=== PATIENT | female | born 1955 | race Caucasian/White ===

== ENCOUNTER → 2016-09-16 | Outpatient (CLI) | payer BC ==
[~2016-09-16] MED LIST: /FELO5TASR PO; /MOXI40TA PO; ACET50TA PO; ALBU17IN INH; ALDACTONE PO; AMIT10TA2 PO; AMIT50TA4 PO; ANAS1TAB PO; ATEN25TA PO; AVAP150T31 PO; AVAP300T PO; AVEL1TAB PO; BYDU1INJ SC; BYST5TAB2 PO; CETI10TA PO; CYCL10TA PO; CYMB1CAP PO; CYMB60CA3 PO; DULO30CA PO; FELO10TA PO; FLEX10TA2 PO; FURO40TA2 PO; GABA-279 PO; GABA100C PO; GLYB5TAB5 PO; HUMULIN R SC; HYDR25TAB PO; INSUH10VL SC; INSUR50VL SC; IRBE300T10 PO; LASI40TA PO; MAGN1CAP PO; METF1000 PO; METO50TA2 PO; MICO2CRE23 VA; MUCI600T34 PO; MULT1TAB8 PO; NEUR300C PO; NEURONTIN PO; NOVOLOG SC; OMEP20CA3 PO; OSEL75CA PO; PRED10PA PO; PRED20TA PO; PRIL20CA PO; PRILOSEC PO; SING10TA32 PO; SPIR50TA2 PO; SYMB16INH INH; TENORMIN PO; ULTR50TA PO; VITA10002 PO; VITA100066 PO; VITA100072 PO; VITAMIN PO; ZYRT10TA2 PO; [UNRECOGNIZED DRUG - OTHER]
[2016-09-16 19:41] LABS: INR 1.05
[2016-09-16 21:06] LABS: ALBUMIN 3.4 GM/DL (3.2-5.2); ALBUMIN/GLOBULIN RATIO 0.72 (1.00-1.93); ALKALINE PHOSPHATASE 140 U/L (45-117); ALT/SGPT 37 U/L (12-78); ANION GAP 9 MEQ/L (8-16); AST/SGOT 34 U/L (15-37); BILIRUBIN,TOTAL 0.4 MG/DL (0.2-1.0); BLOOD UREA NITROGEN 11 MG/DL (7-18); CARBON DIOXIDE LEVEL 25 MEQ/L (21-32); CHLORIDE LEVEL 111 MEQ/L (98-107); CREATININE FOR GFR 0.64 MG/DL (0.55-1.02); GLOMERULAR FILTRATION RATE > 60.0 (>51); GLUCOSE, FASTING 235 MG/DL (70-105); MAGNESIUM LEVEL 1.9 MG/DL (1.8-2.4); POTASSIUM SERUM 4.1 MEQ/L (3.5-5.1); SODIUM LEVEL 145 MEQ/L (136-145); TOTAL PROTEIN 8.1 GM/DL (6.4-8.2)
== END ==
LOC: M WUC 16:20
PROVIDERS: ATTEND Internal Medicine Gastroenterology
DX: K74.60 Unspecified cirrhosis of liver (principal); I85.00 Esophageal varices without bleeding; R12 Heartburn

== ENCOUNTER → 2016-12-24 | Outpatient (CLI) | payer BC ==
--- NOTE | 2016-12-24 16:33 | REPMRS ---
Patient History The patient states she had a clinical breast exam in November 2016. Patient is postmenopausal and has history of cancer in the left breast at age 58. Family history of colorectal cancer in father at age 50 or over. Malignant radio exam breast specimen of the left breast, May 09, 2014. Malignant stereotatic loc for ea lesion of the left breast, May 09, 2014. Digital Mammo Screening Bilat: December 24, 2016 - Exam #: [id number] Bilateral CC and MLO view(s) were taken. Technologist: Jeyson Lisaologist Prior study comparison: December 04, 2015, digital mammo diagnostic bilateral performed at [facility]. March 27, 2015, bilateral digital mammo screening bilat performed at [facility]. FINDINGS: There are scattered fibroglandular densities. There is no evidence of cancer on this mammogram. Large coarse benign appearing calcifications are present. No significant changes when compared with prior studies. ASSESSMENT: BI-RADS/ACR category 2 mammogram. Benign finding(s). Recommendation Routine screening mammogram of both breasts in 1 year (for women over age 40). This mammogram was interpreted with the aid of an FDA-approved computer-aided dectection system. Electronically Signed By: Donnell Leggett MD 12/24/16 [id number]
== END ==
LOC: M RAD 15:11
PROVIDERS: ATTEND Surgery
DX: Z12.31 Encounter for screening mammogram for malignant neoplasm of breast (principal); Z78.0 Asymptomatic menopausal state; Z80.0 Family history of malignant neoplasm of digestive organs; Z85.3 Personal history of malignant neoplasm of breast

== ENCOUNTER → 2017-02-02 | Outpatient (REF) | payer BC ==
[2017-02-02 18:56] LABS: ALBUMIN 3.7 GM/DL (3.2-5.2); ALKALINE PHOSPHATASE 129 U/L (45-117); ANION GAP 9 MEQ/L (8-16); AST/SGOT 37 U/L (15-37); BILIRUBIN,TOTAL 0.6 MG/DL (0.2-1.0); BLOOD UREA NITROGEN 15 MG/DL (7-18); CALCIUM LEVEL 8.6 MG/DL (8.5-10.1); CARBON DIOXIDE LEVEL 25 MEQ/L (21-32); CHLORIDE LEVEL 106 MEQ/L (98-107); CHOLESTEROL LEVEL 189 MG/DL (<200); CREATININE FOR GFR 0.97 MG/DL (0.55-1.02); GLOMERULAR FILTRATION RATE > 60.0 (>51); GLUCOSE, FASTING 143 MG/DL (70-105); POTASSIUM SERUM 3.9 MEQ/L (3.5-5.1); SODIUM LEVEL 140 MEQ/L (136-145); TOTAL PROTEIN 8.3 GM/DL (6.4-8.2); TRIGLYCERIDES LEVEL 676 MG/DL (<150)
[2017-02-02 19:05] LABS: ALT/SGPT 40 U/L (12-78)
== END ==
LOC: M LABDRAW1 16:07
PROVIDERS: ATTEND Internal Medicine Endocrinology, Diabetes & Metabolism
DX: E11.65 Type 2 diabetes mellitus with hyperglycemia (principal)

== ENCOUNTER → 2017-02-04 | Outpatient (REF) | payer BC | LOC: M LAB REF 19:46 | PROVIDERS: ATTEND Internal Medicine Endocrinology, Diabetes & Metabolism | DX: E11.65 Type 2 diabetes mellitus with hyperglycemia (principal) ==

== ENCOUNTER → 2017-03-04 | Outpatient (REF) | payer BC ==
[~2017-03-04] MED LIST changes: -AVEL1TAB PO; +AVEL1TAB3 PO; +METF10004 PO; -METO50TA2 PO; +METO50TA7 PO
[2017-03-04 11:52] LABS: INR 1.07
[2017-03-04 12:07] LABS: ALBUMIN 3.7 GM/DL (3.2-5.2); ALBUMIN/GLOBULIN RATIO 0.86 (1.00-1.93); BILIRUBIN,DIRECT 0.2 MG/DL (0.0-0.2); BILIRUBIN,TOTAL 0.7 MG/DL (0.2-1.0)
== END ==
LOC: M LABDRAW1 11:29
PROVIDERS: ATTEND Internal Medicine Gastroenterology
DX: K74.60 Unspecified cirrhosis of liver (principal)

== ENCOUNTER → 2017-03-28 | Outpatient (REF) | payer BC | LOC: M LAB REF 15:00 | PROVIDERS: ATTEND Physician Assistant Medical | DX: R31.9 Hematuria, unspecified (principal) ==

== ENCOUNTER → 2017-04-28 | Outpatient (CLI) | payer BC ==
--- NOTE | 2017-04-29 09:01 | DEXA ---
AP SPINE L1 - L4 1.693 4.0 5.2 LT FEMUR TOTAL 1.267 2.1 3.0 RT FEMUR TOTAL 1.130 1.0 1.9 TOTAL BODY TOTAL OTHER DUAL FEMUR FRAX* ASSESSMENT Risk factors: Not performed. 10 year probability of fracture Major osteoporotic fracture % Hip fracture % COMMENTS: Normal bone densitometry of the spine and hips. The density of the spine is increased 7.6% since 05/09/2015. The density of the left hip has decreased 0.2% since 05/09/2015. The density of the right hip has decreased 3.6% since 05/09/2015. FOLLOW-UP: Recommendation for the next bone density exam: 5 years. CHETNA
== END ==
LOC: M WHC 10:28
PROVIDERS: ATTEND Internal Medicine Hematology & Oncology
DX: C50.412 Malignant neoplasm of upper-outer quadrant of left female breast (principal); Z17.0 Estrogen receptor positive status [ER+]

== ENCOUNTER → 2017-05-20 | Outpatient (CLI) | payer BC | LOC: M RAD 12:24 | PROVIDERS: ATTEND Internal Medicine Hematology & Oncology | DX: Z12.31 Encounter for screening mammogram for malignant neoplasm of breast (principal) ==

== ENCOUNTER → 2017-06-06 | Outpatient (CLI) | payer BC ==
[2017-06-06 17:55] LABS: BASO # 0.1 10^3/uL (0.0-0.2); EOS # 0.3 10^3/uL (0.0-0.50); EOS % 5.5 % (0.0-3.0); IMMATURE GRANULOCYTE % 0.2 % (0-0); LYMPH # 1.7 10^3/uL (1.5-4.5); LYMPH % 27.8 % (24.0-44.0); MEAN CORPUSCULAR HEMOGLOBIN 33.3 pg (27.0-33.0); MEAN CORPUSCULAR HGB CONC 34.4 g/dl (32.0-36.5); MEAN CORPUSCULAR VOLUME 96.9 fl (80.0-96.0); MONO # 0.7 10^3/uL (0.0-0.8); MONO % 11.1 % (0.0-5.0); NEUTROPHILS # 3.3 10^3/uL (1.8-7.7); NEUTROPHILS % 54.4 % (36.0-66.0); PLATELET COUNT, AUTOMATED 155 10^3/uL (150-450); RED CELL DISTRIBUTION WIDTH 13.7 % (11.5-14.5); WHITE BLOOD COUNT 6.1 10^3/uL (4.0-10.0)
[2017-06-06 18:21] LABS: ALBUMIN 3.9 GM/DL (3.2-5.2); ALBUMIN/GLOBULIN RATIO 0.89 (1.00-1.93); ALKALINE PHOSPHATASE 108 U/L (45-117); ALT/SGPT 36 U/L (12-78); ANION GAP 10 MEQ/L (8-16); AST/SGOT 34 U/L (15-37); BLOOD UREA NITROGEN 16 MG/DL (7-18); CALCIUM LEVEL 10.4 MG/DL (8.8-10.2); CARBON DIOXIDE LEVEL 26 MEQ/L (21-32); CHLORIDE LEVEL 104 MEQ/L (98-107); CHOLESTEROL LEVEL 145 MG/DL (<200); FREE T4 0.82 NG/DL (0.76-1.46); GLOMERULAR FILTRATION RATE > 60.0 (>45); GLUCOSE, FASTING 119 MG/DL (80-110); MAGNESIUM LEVEL 1.5 MG/DL (1.8-2.4); SODIUM LEVEL 140 MEQ/L (136-145); TOTAL PROTEIN 8.3 GM/DL (6.4-8.2); TRIGLYCERIDES LEVEL 111 MG/DL (<150)
== END ==
LOC: M WUC 10:35
PROVIDERS: ATTEND Family Medicine
DX: K21.9 Gastro-esophageal reflux disease without esophagitis (principal); E66.01 Morbid (severe) obesity due to excess calories; I10 Essential (primary) hypertension

== ENCOUNTER → 2017-10-05 | Outpatient (REF) | payer BC ==
[2017-10-05 16:17] LABS: BASO # 0.1 10^3/uL (0.0-0.2); BASO % 0.8 % (0.0-1.0); EOS # 0.5 10^3/uL (0.0-0.50); EOS % 6.4 % (0.0-3.0); HEMATOCRIT 42.8 % (36.0-47.0); IMMATURE GRANULOCYTE % 0.3 % (0-3.0); LYMPH # 1.7 10^3/uL (1.5-4.5); LYMPH % 23.1 % (24.0-44.0); MEAN CORPUSCULAR HEMOGLOBIN 33.2 pg (27.0-33.0); MEAN CORPUSCULAR VOLUME 94.7 fl (80.0-96.0); MONO # 0.7 10^3/uL (0.0-0.8); MONO % 9.1 % (0.0-5.0); NEUTROPHILS # 4.5 10^3/uL (1.8-7.7); NEUTROPHILS % 60.3 % (36.0-66.0); PLATELET COUNT, AUTOMATED 208 10^3/uL (150-450); RED BLOOD COUNT 4.52 10^6/uL (4.00-5.40); WHITE BLOOD COUNT 7.4 10^3/uL (4.0-10.0)
[2017-10-05 17:05] LABS: ALBUMIN 3.8 GM/DL (3.2-5.2); ALBUMIN/GLOBULIN RATIO 0.83 (1.00-1.93); ALKALINE PHOSPHATASE 101 U/L (45-117); ALT/SGPT 28 U/L (12-78); ANION GAP 10 MEQ/L (8-16); AST/SGOT 36 U/L (7-37); BLOOD UREA NITROGEN 11 MG/DL (7-18); CALCIUM LEVEL 9.3 MG/DL (8.8-10.2); CARBON DIOXIDE LEVEL 29 MEQ/L (21-32); CHLORIDE LEVEL 99 MEQ/L (98-107); CREATININE FOR GFR 0.88 MG/DL (0.55-1.30); FREE T4 0.77 NG/DL (0.76-1.46); GLOMERULAR FILTRATION RATE > 60.0 (>45); GLUCOSE, FASTING 160 MG/DL (70-100); POTASSIUM SERUM 3.9 MEQ/L (3.5-5.1); SODIUM LEVEL 138 MEQ/L (136-145); TOTAL PROTEIN 8.4 GM/DL (6.4-8.2)
== END ==
LOC: M LABDRAW1 15:31
DX: E66.01 Morbid (severe) obesity due to excess calories (principal); I10 Essential (primary) hypertension
CPT/HCPCS: 84443

== ENCOUNTER → 2018-01-26 | Outpatient (REF) | payer BC ==
[2018-01-26 16:30] LABS: BASO # 0.1 10^3/uL (0.0-0.2); BASO % 1.1 % (0.0-1.0); EOS # 0.3 10^3/uL (0.0-0.50); EOS % 5.1 % (0.0-3.0); HEMOGLOBIN 14.5 g/dl (12.0-15.5); IMMATURE GRANULOCYTE % 0.3 % (0-3.0); LYMPH # 1.6 10^3/uL (1.5-4.5); LYMPH % 24.5 % (24.0-44.0); MEAN CORPUSCULAR HEMOGLOBIN 33.8 pg (27.0-33.0); MEAN CORPUSCULAR HGB CONC 35.4 g/dl (32.0-36.5); MEAN CORPUSCULAR VOLUME 95.6 fl (80.0-96.0); MONO # 0.6 10^3/uL (0.0-0.8); MONO % 8.6 % (0.0-5.0); NEUTROPHILS # 3.9 10^3/uL (1.8-7.7); NEUTROPHILS % 60.4 % (36.0-66.0); PLATELET COUNT, AUTOMATED 175 10^3/uL (150-450); RED BLOOD COUNT 4.29 10^6/uL (4.00-5.40); RED CELL DISTRIBUTION WIDTH 13.9 % (11.5-14.5); WHITE BLOOD COUNT 6.5 10^3/uL (4.0-10.0)
[2018-01-26 16:34] LABS: CHOLESTEROL LEVEL 141 MG/DL (<200); CHOLESTEROL RISK RATIO 2.711 (<5); FREE T4 0.76 NG/DL (0.76-1.46); HDL CHOLESTEROL 52 MG/DL (>40); LDL CHOLESTEROL 74.6 MG/DL (<100); NON-HDL-C 89 MG/DL; TRIGLYCERIDES LEVEL 72 MG/DL (<150)
[2018-01-26 16:47] LABS: MALB URINE SIEMENS 35.6 MG/L
== END ==
LOC: M LABDRAW1 15:51
DX: E11.65 Type 2 diabetes mellitus with hyperglycemia (principal); Z13.220 Encounter for screening for lipoid disorders; Z13.29 Encounter for screening for other suspected endocrine disorder; Z13.0 Encounter for screening for diseases of the blood and blood-forming organs and certain disorders involving the immune mechanism
CPT/HCPCS: 84443

== ENCOUNTER → 2018-01-26 | Outpatient (REF) | payer BC ==
[2018-01-26 16:36] LABS: CREATININE FOR GFR 1.02 MG/DL (0.55-1.30); GLOMERULAR FILTRATION RATE 58.8 (>45)
[2018-01-26 16:36] LABS: BLOOD UREA NITROGEN 15 MG/DL (7-18)
== END ==
LOC: M LAB REF 16:08
DX: Z01.812 Encounter for preprocedural laboratory examination (principal); I10 Essential (primary) hypertension; E11.9 Type 2 diabetes mellitus without complications
CPT/HCPCS: 82565

== ENCOUNTER → 2018-02-03 | Outpatient (CLI) | payer BC | LOC: M RAD 12:22 | DX: Z12.31 Encounter for screening mammogram for malignant neoplasm of breast (principal) ==

== ENCOUNTER → 2018-02-09 | Outpatient (CLI) | payer BC ==
[2018-02-09 20:31] LABS: ANION GAP 11 MEQ/L (8-16); BLOOD UREA NITROGEN 17 MG/DL (7-18); CALCIUM LEVEL 9.7 MG/DL (8.8-10.2); CARBON DIOXIDE LEVEL 28 MEQ/L (21-32); CHLORIDE LEVEL 103 MEQ/L (98-107); CREATININE FOR GFR 0.77 MG/DL (0.55-1.30); GLOMERULAR FILTRATION RATE > 60.0 (>45); GLUCOSE, FASTING 78 MG/DL (70-100); NT-PRO BNP 15 PG/ML (<125); POTASSIUM SERUM 4.1 MEQ/L (3.5-5.1); SODIUM LEVEL 142 MEQ/L (136-145)
== END ==
LOC: M WUC 16:49
DX: R60.0 Localized edema (principal)
CPT/HCPCS: 80048

== ENCOUNTER → 2018-03-26 | Outpatient (CLI) | payer BC | LOC: M PLARAD 09:48 | DX: M25.511 Pain in right shoulder (principal) | CPT/HCPCS: 73221 ==

== ENCOUNTER → 2018-06-12 | Outpatient (CLI) | payer BC ==
[2018-06-12 13:23] LABS: BASO # 0.1 10^3/uL (0.0-0.2); BASO % 0.8 % (0.0-1.0); EOS # 0.5 10^3/uL (0.0-0.50); EOS % 8.2 % (0.0-3.0); HEMATOCRIT 37.9 % (36.0-47.0); HEMOGLOBIN 12.9 g/dl (12.0-15.5); IMMATURE GRANULOCYTE % 0.3 % (0-3.0); LYMPH # 1.5 10^3/uL (1.5-4.5); LYMPH % 22.8 % (24.0-44.0); MEAN CORPUSCULAR HEMOGLOBIN 34.1 pg (27.0-33.0); MEAN CORPUSCULAR VOLUME 100.3 fl (80.0-96.0); MONO # 0.6 10^3/uL (0.0-0.8); MONO % 9.8 % (0.0-5.0); NEUTROPHILS # 3.8 10^3/uL (1.8-7.7); NEUTROPHILS % 58.1 % (36.0-66.0); PLATELET COUNT, AUTOMATED 213 10^3/uL (150-450); RED BLOOD COUNT 3.78 10^6/uL (4.00-5.40); RED CELL DISTRIBUTION WIDTH 14.1 % (11.5-14.5); WHITE BLOOD COUNT 6.5 10^3/uL (4.0-10.0)
[2018-06-12 13:31] LABS: HEMATOCRIT 37.9 % (36.0-47.0)
[2018-06-12 13:38] LABS: ESTIMATED AVERAGE GLUCOSE 151 MG/DL (60-110); HEMOGLOBIN A1c 6.9 %
[2018-06-12 13:49] LABS: ALBUMIN 3.9 GM/DL (3.2-5.2); ALBUMIN/GLOBULIN RATIO 0.91 (1.00-1.93); ALKALINE PHOSPHATASE 116 U/L (45-117); ALT/SGPT 37 U/L (12-78); ANION GAP 8 MEQ/L (8-16); AST/SGOT 43 U/L (7-37); BILIRUBIN,TOTAL 0.9 MG/DL (0.2-1.0); BLOOD UREA NITROGEN 11 MG/DL (7-18); CALCIUM LEVEL 9.1 MG/DL (8.8-10.2); CARBON DIOXIDE LEVEL 26 MEQ/L (21-32); CHLORIDE LEVEL 102 MEQ/L (98-107); CREATININE FOR GFR 0.76 MG/DL (0.55-1.30); FERRITIN 180 NG/ML (8-252); GLOMERULAR FILTRATION RATE > 60.0 (>45); GLUCOSE, FASTING 183 MG/DL (70-100); IRON (FE) 108 UG/DL (50-170); MAGNESIUM LEVEL 1.8 MG/DL (1.8-2.4); PERCENT SATURATION 38.8 % (13.2-45.0); PHOSPHORUS LEVEL 2.9 MG/DL (2.5-4.9); POTASSIUM SERUM 4.8 MEQ/L (3.5-5.1); SODIUM LEVEL 136 MEQ/L (136-145); TOTAL IRON BINDING CAPACITY 278 UG/DL (250-450); TOTAL PROTEIN 8.2 GM/DL (6.4-8.2)
[2018-06-14 11:01] LABS: TOTAL 25(OH) VITAMIN D 48.4 NG/ML (30.0-100.0)
[2018-06-15 11:38] LABS: PRETREATED FOLATE FOR RBCFOL 13.4 NG/ML; RBC FOLATE 742.5 NG/ML (280-791)
[2018-06-17 17:43] LABS: VITAMIN B1 LEVEL WHOLE BLOOD 97.7 nmol/L (66.5-200.0)
== END ==
LOC: M WUC 10:42
DX: K91.2 Postsurgical malabsorption, not elsewhere classified (principal); E55.9 Vitamin D deficiency, unspecified; Z98.84 Bariatric surgery status
CPT/HCPCS: 83550

== ENCOUNTER 2018-07-18 08:16 | Inpatient (IN) | payer BC ==
[2018-07-18 08:51] LABS: BEDSIDE GLUCOSE 268 MG/DL (80-115)
[2018-07-18 09:39] LABS: BEDSIDE GLUCOSE 228 MG/DL (80-115)
[2018-07-18] MEDS: NS 1,000 ML IV (09:40)
[2018-07-18 09:48] LABS: BASO % 0.4 % (0.0-1.0); HEMATOCRIT 29.8 % (36.0-47.0); HEMOGLOBIN 10.3 g/dl (12.0-15.5); IMMATURE GRANULOCYTE % 0.5 % (0-3.0); LYMPH % 12.4 % (24.0-44.0); MEAN CORPUSCULAR HEMOGLOBIN 33.4 pg (27.0-33.0); MEAN CORPUSCULAR HGB CONC 34.6 g/dl (32.0-36.5); MEAN CORPUSCULAR VOLUME 96.8 fl (80.0-96.0); MONO # 0.5 10^3/uL (0.0-0.8); MONO % 6.8 % (0.0-5.0); NEUTROPHILS # 6.3 10^3/uL (1.8-7.7); NEUTROPHILS % 79.9 % (36.0-66.0); PLATELET COUNT, AUTOMATED 150 10^3/uL (150-450); RED BLOOD COUNT 3.08 10^6/uL (4.00-5.40); RED CELL DISTRIBUTION WIDTH 13.4 % (11.5-14.5); WHITE BLOOD COUNT 7.9 10^3/uL (4.0-10.0)
[2018-07-18 09:50] LABS: ABG BASE EXCESS -0.8 (-2.0-2.0); ABG HCO3 23.1 MEQ/L (22.0-26.0); ABG O2 SATURATION 94.7 % (95.0-99.0); ABG PARTIAL PRESSURE CO2 35.3 mmHg (35.0-45.0); ABG PARTIAL PRESSURE O2 80.1 mmHg (75.0-100.0); ABG STANDARD HCO3 23.8 MEQ/L (22.0-26.0); ABG TOTAL CO2 24.2 MEQ/L (23.0-31.0); ABG pH (ARTERIAL) 7.434 UNITS (7.350-7.450)
[2018-07-18 09:59] LABS: AMMONIA 86 uMOL/L (<32)
[2018-07-18 10:12] LABS: KETONE, URINE AUTO RFX 1+ mg/dL (NEGATIVE); LEUKOCYTE ESTERASE UR AUTO RFX NEGATIVE (NEGATIVE); NITRITE, URINE AUTO RFX NEGATIVE (NEGATIVE); RBC, URINE AUTO RFX 2 /HPF (0-3); SPECIFIC GRAVITY UR AUTO RFX 1.013 (1.002-1.035); SQUAM EPITHELIAL CELL UR AURFX 0 /HPF (0-6); WBC, URINE AUTO RFX 0 /HPF (0-3)
[2018-07-18 10:16] LABS: LACTIC ACID SEPSIS PROTOCOL 2.2 MMOL/L (0.4-2.0)
[2018-07-18 10:28] LABS: ACETAMINOPHEN LEVEL < 2.0 UG/ML (10.0-30.0); ALBUMIN 3.4 GM/DL (3.2-5.2); ALBUMIN/GLOBULIN RATIO 0.92 (1.00-1.93); ALKALINE PHOSPHATASE 112 U/L (45-117); ALT/SGPT 38 U/L (12-78); ANION GAP 11 MEQ/L (8-16); AST/SGOT 25 U/L (7-37); BILIRUBIN,DIRECT 0.3 MG/DL (0.0-0.2); BILIRUBIN,TOTAL 0.6 MG/DL (0.2-1.0); BLOOD UREA NITROGEN 14 MG/DL (7-18); CALCIUM LEVEL 8.8 MG/DL (8.8-10.2); CARBON DIOXIDE LEVEL 22 MEQ/L (21-32); CHLORIDE LEVEL 110 MEQ/L (98-107); CPK CREATINE PHOSPHOKINASE 89 U/L (26-192); CREATININE FOR GFR 0.61 MG/DL (0.55-1.30); ETHYL ALCOHOL (ETHANOL) < 0.003 % (0.000-0.010); GLOMERULAR FILTRATION RATE > 60.0 (>45); GLUCOSE, FASTING 250 MG/DL (70-100); POTASSIUM SERUM 3.9 MEQ/L (3.5-5.1); SALICYLATE LEVEL < 1.7 MG/DL (5.0-30.0); SODIUM LEVEL 143 MEQ/L (136-145); THYROID STIMULATING HORMONE 0.865 uIU/ML (0.358-3.740); TOTAL PROTEIN 7.1 GM/DL (6.4-8.2); TROPONIN I < 0.02 NG/ML (< 0.10)
[2018-07-18 10:37] LABS: AMPHETAMINES LEVEL URINE NEGATIVE (NEGATIVE); BARBITURATES URINE NEGATIVE (NEGATIVE); BENZODIAZEPINES URINE NEGATIVE (NEGATIVE); CANNABINOIDS URINE NEGATIVE (NEGATIVE); COCAINE METABOLITE URINE NEGATIVE (NEGATIVE); METHADONE URINE NEGATIVE (NEGATIVE); OPIATES URINE NEGATIVE (NEGATIVE); PHENCYCLIDINE URINE NEGATIVE (NEGATIVE)
[2018-07-18 10:48] LABS: ESTIMATED AVERAGE GLUCOSE 160 MG/DL (60-110); HEMOGLOBIN A1c 7.2 %
[2018-07-18] MEDS: LACTULOSE 20 GM/30 ML SYRUP UD PO ×2 (11:21→21:57)
[2018-07-18] MEDS: HumaLOG INSULIN (NovoLOG) PER UNIT SC ×2 (12:00→17:40)
[2018-07-18] MEDS ORDERED: GLUCOSE 4 GM CHEW TABLET PO (12:15)
[2018-07-18] MEDS ORDERED: GLUCAGON FOR INJ 1 MG VIAL (J1610) SC (12:15)
[2018-07-18] MEDS ORDERED: DEXTROSE 50% 50 ML SYRINGE IV (12:15)
[2018-07-18] MEDS: ASPIRIN 81 MG ENTERIC TAB PO (15:20)
[2018-07-18] MEDS: IRBESARTAN 150 MG TAB PO (15:20)
[2018-07-18] MEDS: MONTELUKAST 10 MG TAB PO (15:21)
[2018-07-18] MEDS: ATENOLOL 25 MG TAB PO (15:21)
[2018-07-18] MEDS ORDERED: FUROSEMIDE 100 MG/10 ML VIAL (J1940) IV (17:00)
[2018-07-18 17:47] LABS: BEDSIDE GLUCOSE 179 MG/DL (80-115)
[2018-07-18] MEDS: DULoxetine 30 MG CAP (CYMBALTA) PO (20:38)
[2018-07-18] MEDS: MORPHINE 4 MG/ML 1ML VIAL/SYRINGE (J2270) IV (23:54)
[2018-07-19] MEDS: MORPHINE 4 MG/ML 1ML VIAL/SYRINGE (J2270) IV (03:48)
[2018-07-19 04:32] LABS: BASO % 0.7 % (0.0-1.0); EOS # 0.2 10^3/uL (0.0-0.50); EOS % 3.8 % (0.0-3.0); HEMATOCRIT 28.1 % (36.0-47.0); HEMOGLOBIN 9.6 g/dl (12.0-15.5); IMMATURE GRANULOCYTE % 0.3 % (0-3.0); LYMPH # 1.6 10^3/uL (1.5-4.5); LYMPH % 27.5 % (24.0-44.0); MEAN CORPUSCULAR HEMOGLOBIN 33.2 pg (27.0-33.0); MEAN CORPUSCULAR HGB CONC 34.2 g/dl (32.0-36.5); MEAN CORPUSCULAR VOLUME 97.2 fl (80.0-96.0); MONO # 0.6 10^3/uL (0.0-0.8); MONO % 10.7 % (0.0-5.0); NEUTROPHILS # 3.3 10^3/uL (1.8-7.7); PLATELET COUNT, AUTOMATED 140 10^3/uL (150-450); RED BLOOD COUNT 2.89 10^6/uL (4.00-5.40); RED CELL DISTRIBUTION WIDTH 13.5 % (11.5-14.5); WHITE BLOOD COUNT 5.8 10^3/uL (4.0-10.0)
[2018-07-19 04:57] LABS: ALBUMIN 3.2 GM/DL (3.2-5.2); ALBUMIN/GLOBULIN RATIO 0.86 (1.00-1.93); ALKALINE PHOSPHATASE 104 U/L (45-117); ALT/SGPT 37 U/L (12-78); ANION GAP 6 MEQ/L (8-16); AST/SGOT 41 U/L (7-37); BILIRUBIN,TOTAL 0.6 MG/DL (0.2-1.0); BLOOD UREA NITROGEN 10 MG/DL (7-18); CALCIUM LEVEL 8.2 MG/DL (8.8-10.2); CARBON DIOXIDE LEVEL 26 MEQ/L (21-32); CHLORIDE LEVEL 111 MEQ/L (98-107); CREATININE FOR GFR 0.49 MG/DL (0.55-1.30); GLOMERULAR FILTRATION RATE > 60.0 (>45); GLUCOSE, FASTING 187 MG/DL (70-100); POTASSIUM SERUM 3.4 MEQ/L (3.5-5.1); SODIUM LEVEL 143 MEQ/L (136-145); TOTAL PROTEIN 6.9 GM/DL (6.4-8.2)
[2018-07-19] MEDS: LACTULOSE 20 GM/30 ML SYRUP UD PO ×5 (05:22→23:47)
[2018-07-19] MEDS ORDERED: POTASSIUM CHLORIDE 10 MEQ SR TABLET PO (07:00)
[2018-07-19 07:37] LABS: INR 1.17; PROTHROMBIN TIME 15.1 SECONDS (12.1-14.4)
[2018-07-19 07:50] LABS: AMMONIA 95 uMOL/L (<32)
[2018-07-19 08:27] LABS: BEDSIDE GLUCOSE 253 MG/DL (80-115)
[2018-07-19] MEDS: KCL 10MEQ/100ML SWI (KRUN) 10 MEQ in APPROPRIATE DILUENT 1 EA IV ×2 (08:27→09:30)
[2018-07-19] MEDS: HumaLOG INSULIN (NovoLOG) PER UNIT SC ×3 (09:05→16:58)
[2018-07-19] MEDS: IRBESARTAN 150 MG TAB PO (11:39)
[2018-07-19] MEDS: ATENOLOL 25 MG TAB PO (11:39)
[2018-07-19] MEDS: MONTELUKAST 10 MG TAB PO (11:39)
[2018-07-19] MEDS: ASPIRIN 81 MG ENTERIC TAB PO (11:40)
[2018-07-19 11:54] LABS: BEDSIDE GLUCOSE 170 MG/DL (80-115)
[2018-07-19] MEDS ORDERED: ALBUTEROL SULFATE 2.5 MG/0.5 ML INH NEB SOLN NEB (16:45)
[2018-07-19 16:54] LABS: BEDSIDE GLUCOSE 214 MG/DL (80-115)
[2018-07-19] MEDS: SPIRONOLACTONE 50 MG TAB PO (20:37)
[2018-07-19] MEDS: DULoxetine 30 MG CAP (CYMBALTA) PO (20:39)
[2018-07-19] MEDS: GABAPENTIN 100 MG CAP PO (22:19)
[2018-07-19] MEDS: NYSTATIN 100,000 UNITS/GM TOPICAL PWD 15 GM TOP (23:47)
[2018-07-20] MEDS: LACTULOSE 20 GM/30 ML SYRUP UD PO ×6 (04:57→16:26)
[2018-07-20 05:07] LABS: BASO % 0.6 % (0.0-1.0); EOS # 0.3 10^3/uL (0.0-0.50); EOS % 4.9 % (0.0-3.0); HEMATOCRIT 28.7 % (36.0-47.0); HEMOGLOBIN 9.8 g/dl (12.0-15.5); IMMATURE GRANULOCYTE % 0.3 % (0-3.0); LYMPH # 1.7 10^3/uL (1.5-4.5); LYMPH % 26.1 % (24.0-44.0); MEAN CORPUSCULAR HEMOGLOBIN 33.3 pg (27.0-33.0); MEAN CORPUSCULAR HGB CONC 34.1 g/dl (32.0-36.5); MEAN CORPUSCULAR VOLUME 97.6 fl (80.0-96.0); MONO # 0.7 10^3/uL (0.0-0.8); MONO % 10.4 % (0.0-5.0); NEUTROPHILS # 3.7 10^3/uL (1.8-7.7); NEUTROPHILS % 57.7 % (36.0-66.0); PLATELET COUNT, AUTOMATED 162 10^3/uL (150-450); RED BLOOD COUNT 2.94 10^6/uL (4.00-5.40); RED CELL DISTRIBUTION WIDTH 13.6 % (11.5-14.5); WHITE BLOOD COUNT 6.3 10^3/uL (4.0-10.0)
[2018-07-20 05:22] LABS: AMMONIA 175 uMOL/L (<32)
[2018-07-20 05:26] LABS: ALBUMIN 3.2 GM/DL (3.2-5.2); ALBUMIN/GLOBULIN RATIO 0.89 (1.00-1.93); ALKALINE PHOSPHATASE 114 U/L (45-117); ALT/SGPT 47 U/L (12-78); ANION GAP 8 MEQ/L (8-16); AST/SGOT 48 U/L (7-37); BILIRUBIN,TOTAL 0.6 MG/DL (0.2-1.0); BLOOD UREA NITROGEN 12 MG/DL (7-18); CALCIUM LEVEL 8.7 MG/DL (8.8-10.2); CARBON DIOXIDE LEVEL 25 MEQ/L (21-32); CHLORIDE LEVEL 112 MEQ/L (98-107); CREATININE FOR GFR 0.54 MG/DL (0.55-1.30); GLOMERULAR FILTRATION RATE > 60.0 (>45); GLUCOSE, FASTING 211 MG/DL (70-100); POTASSIUM SERUM 3.7 MEQ/L (3.5-5.1); SODIUM LEVEL 145 MEQ/L (136-145); TOTAL PROTEIN 6.8 GM/DL (6.4-8.2)
[2018-07-20 07:22] LABS: BEDSIDE GLUCOSE 211 MG/DL (80-115)
[2018-07-20] MEDS: HumaLOG INSULIN (NovoLOG) PER UNIT SC ×3 (07:34→16:50)
[2018-07-20] MEDS: amLODIPine 5 MG TAB PO (08:55)
[2018-07-20] MEDS: MONTELUKAST 10 MG TAB PO (08:56)
[2018-07-20] MEDS: ASPIRIN 81 MG ENTERIC TAB PO (08:56)
[2018-07-20] MEDS: IRBESARTAN 150 MG TAB PO (08:56)
[2018-07-20] MEDS: ATENOLOL 25 MG TAB PO (08:56)
[2018-07-20] MEDS: SPIRONOLACTONE 50 MG TAB PO (08:56)
[2018-07-20] MEDS: NYSTATIN 100,000 UNITS/GM TOPICAL PWD 15 GM TOP ×2 (08:57→20:16)
[2018-07-20] MEDS: ENOXAPARIN 40 MG/0.4 ML SYRINGE (J1650) SC (08:57)
[2018-07-20] MEDS: LACTULOSE 20 GM/30 ML SYRUP UD PR (09:08)
[2018-07-20 11:33] LABS: AMMONIA 93 uMOL/L (<32)
[2018-07-20 12:07] LABS: BEDSIDE GLUCOSE 211 MG/DL (80-115)
[2018-07-20 16:33] LABS: AMMONIA 90 uMOL/L (<32)
[2018-07-20 16:48] LABS: BEDSIDE GLUCOSE 193 MG/DL (80-115)
[2018-07-20] MEDS ORDERED: VITAMIN A & D OINTMENT 60 GM TOP (17:00)
[2018-07-20 18:29] LABS: ANION GAP 11 MEQ/L (8-16); BLOOD UREA NITROGEN 12 MG/DL (7-18); CALCIUM LEVEL 9.2 MG/DL (8.8-10.2); CARBON DIOXIDE LEVEL 23 MEQ/L (21-32); CHLORIDE LEVEL 116 MEQ/L (98-107); CREATININE FOR GFR 0.91 MG/DL (0.55-1.30); GLOMERULAR FILTRATION RATE > 60.0 (>45); GLUCOSE, FASTING 264 MG/DL (70-100); POTASSIUM SERUM 3.5 MEQ/L (3.5-5.1); SODIUM LEVEL 150 MEQ/L (136-145)
[2018-07-20 18:30] LABS: AMMONIA 71 uMOL/L (<32)
[2018-07-20] MEDS: SODIUM CHLORIDE 0.45% 1000 ML IV (19:15)
[2018-07-20] MEDS: NS 0.45% 1,000 ML IV (19:15)
[2018-07-20] MEDS: DULoxetine 30 MG CAP (CYMBALTA) PO (20:15)
[2018-07-20] MEDS: GABAPENTIN 100 MG CAP PO (20:15)
[2018-07-20] MEDS ORDERED: GABAPENTIN 100 MG CAP PO (21:00)
[2018-07-20] MEDS: CYCLOBENZAPRINE 10 MG TAB PO (22:53)
[2018-07-21 00:50] LABS: ANION GAP 10 MEQ/L (8-16); BLOOD UREA NITROGEN 12 MG/DL (7-18); CALCIUM LEVEL 8.6 MG/DL (8.8-10.2); CARBON DIOXIDE LEVEL 22 MEQ/L (21-32); CHLORIDE LEVEL 115 MEQ/L (98-107); CREATININE FOR GFR 0.59 MG/DL (0.55-1.30); GLOMERULAR FILTRATION RATE > 60.0 (>45); GLUCOSE, FASTING 188 MG/DL (70-100); POTASSIUM SERUM 3.6 MEQ/L (3.5-5.1); SODIUM LEVEL 147 MEQ/L (136-145)
[2018-07-21 00:50] LABS: AMMONIA 36 uMOL/L (<32)
[2018-07-21] MEDS: LACTULOSE 20 GM/30 ML SYRUP UD PO ×6 (01:49→20:59)
[2018-07-21] MEDS: NS 0.45% 1,000 ML IV ×3 (05:00→20:20)
[2018-07-21] MEDS: CYCLOBENZAPRINE 10 MG TAB PO (06:28)
[2018-07-21 06:32] LABS: BASO # 0.1 10^3/uL (0.0-0.2); BASO % 0.6 % (0.0-1.0); EOS # 0.5 10^3/uL (0.0-0.50); EOS % 6.5 % (0.0-3.0); HEMATOCRIT 28.3 % (36.0-47.0); HEMOGLOBIN 9.6 g/dl (12.0-15.5); IMMATURE GRANULOCYTE % 0.4 % (0-3.0); LYMPH # 1.7 10^3/uL (1.5-4.5); LYMPH % 22.2 % (24.0-44.0); MEAN CORPUSCULAR HEMOGLOBIN 33.6 pg (27.0-33.0); MEAN CORPUSCULAR HGB CONC 33.9 g/dl (32.0-36.5); MONO # 0.6 10^3/uL (0.0-0.8); MONO % 8.2 % (0.0-5.0); NEUTROPHILS # 4.9 10^3/uL (1.8-7.7); NEUTROPHILS % 62.1 % (36.0-66.0); PLATELET COUNT, AUTOMATED 168 10^3/uL (150-450); RED BLOOD COUNT 2.86 10^6/uL (4.00-5.40); RED CELL DISTRIBUTION WIDTH 13.9 % (11.5-14.5); WHITE BLOOD COUNT 7.9 10^3/uL (4.0-10.0)
[2018-07-21 06:47] LABS: AMMONIA 55 uMOL/L (<32)
[2018-07-21 06:51] LABS: ALBUMIN 2.9 GM/DL (3.2-5.2); ALBUMIN/GLOBULIN RATIO 0.74 (1.00-1.93); ALKALINE PHOSPHATASE 115 U/L (45-117); ALT/SGPT 47 U/L (12-78); ANION GAP 9 MEQ/L (8-16); AST/SGOT 38 U/L (7-37); BILIRUBIN,TOTAL 0.6 MG/DL (0.2-1.0); BLOOD UREA NITROGEN 12 MG/DL (7-18); CALCIUM LEVEL 8.5 MG/DL (8.8-10.2); CARBON DIOXIDE LEVEL 23 MEQ/L (21-32); CHLORIDE LEVEL 112 MEQ/L (98-107); CREATININE FOR GFR 0.51 MG/DL (0.55-1.30); GLOMERULAR FILTRATION RATE > 60.0 (>45); GLUCOSE, FASTING 177 MG/DL (70-100); POTASSIUM SERUM 3.4 MEQ/L (3.5-5.1); SODIUM LEVEL 144 MEQ/L (136-145); TOTAL PROTEIN 6.8 GM/DL (6.4-8.2)
[2018-07-21] MEDS: LACTULOSE 20 GM/30 ML SYRUP UD PR (07:15)
[2018-07-21] MEDS: ENOXAPARIN 40 MG/0.4 ML SYRINGE (J1650) SC (08:41)
[2018-07-21] MEDS: amLODIPine 5 MG TAB PO (08:42)
[2018-07-21] MEDS: ASPIRIN 81 MG ENTERIC TAB PO (08:42)
[2018-07-21] MEDS: ATENOLOL 25 MG TAB PO (08:42)
[2018-07-21] MEDS: IRBESARTAN 150 MG TAB PO (08:42)
[2018-07-21] MEDS: MONTELUKAST 10 MG TAB PO (08:42)
[2018-07-21] MEDS: NYSTATIN 100,000 UNITS/GM TOPICAL PWD 15 GM TOP ×2 (08:43→21:00)
[2018-07-21] MEDS: POTASSIUM CHLORIDE 10 MEQ SR TABLET PO (08:43)
[2018-07-21] MEDS: HumaLOG INSULIN (NovoLOG) PER UNIT SC ×3 (08:43→17:07)
[2018-07-21 12:08] LABS: BEDSIDE GLUCOSE 190 MG/DL (80-115)
[2018-07-21 12:57] LABS: ANION GAP 8 MEQ/L (8-16); BLOOD UREA NITROGEN 11 MG/DL (7-18); CALCIUM LEVEL 8.4 MG/DL (8.8-10.2); CARBON DIOXIDE LEVEL 23 MEQ/L (21-32); CHLORIDE LEVEL 109 MEQ/L (98-107); GLOMERULAR FILTRATION RATE > 60.0 (>45); GLUCOSE, FASTING 194 MG/DL (70-100); POTASSIUM SERUM 3.5 MEQ/L (3.5-5.1); SODIUM LEVEL 140 MEQ/L (136-145)
[2018-07-21 12:57] LABS: AMMONIA 79 uMOL/L (<32)
[2018-07-21 16:49] LABS: BEDSIDE GLUCOSE 237 MG/DL (80-115)
[2018-07-21 18:39] LABS: AMMONIA 35 uMOL/L (<32)
[2018-07-21 18:42] LABS: ANION GAP 6 MEQ/L (8-16); BLOOD UREA NITROGEN 13 MG/DL (7-18); CALCIUM LEVEL 8.8 MG/DL (8.8-10.2); CARBON DIOXIDE LEVEL 25 MEQ/L (21-32); CHLORIDE LEVEL 106 MEQ/L (98-107); CREATININE FOR GFR 0.98 MG/DL (0.55-1.30); GLOMERULAR FILTRATION RATE > 60.0 (>45); GLUCOSE, FASTING 305 MG/DL (70-100); POTASSIUM SERUM 4.3 MEQ/L (3.5-5.1); SODIUM LEVEL 137 MEQ/L (136-145)
[2018-07-21] MEDS: GABAPENTIN 100 MG CAP PO (21:00)
[2018-07-21] MEDS: DULoxetine 30 MG CAP (CYMBALTA) PO (21:00)
[2018-07-22 00:29] LABS: AMMONIA 36 uMOL/L (<32)
[2018-07-22 00:30] LABS: ANION GAP 6 MEQ/L (8-16); BLOOD UREA NITROGEN 10 MG/DL (7-18); CALCIUM LEVEL 8.2 MG/DL (8.8-10.2); CARBON DIOXIDE LEVEL 24 MEQ/L (21-32); CHLORIDE LEVEL 109 MEQ/L (98-107); CREATININE FOR GFR 0.68 MG/DL (0.55-1.30); GLOMERULAR FILTRATION RATE > 60.0 (>45); GLUCOSE, FASTING 153 MG/DL (70-100); SODIUM LEVEL 139 MEQ/L (136-145)
[2018-07-22] MEDS: LACTULOSE 20 GM/30 ML SYRUP UD PO ×6 (01:09→21:42)
[2018-07-22 06:03] LABS: BASO % 0.5 % (0.0-1.0); EOS # 0.6 10^3/uL (0.0-0.50); EOS % 7.7 % (0.0-3.0); IMMATURE GRANULOCYTE % 0.3 % (0-3.0); LYMPH # 1.5 10^3/uL (1.5-4.5); MEAN CORPUSCULAR HGB CONC 34.6 g/dl (32.0-36.5); MEAN CORPUSCULAR VOLUME 98.1 fl (80.0-96.0); MONO # 0.6 10^3/uL (0.0-0.8); MONO % 8.6 % (0.0-5.0); NEUTROPHILS # 4.5 10^3/uL (1.8-7.7); NEUTROPHILS % 61.9 % (36.0-66.0); PLATELET COUNT, AUTOMATED 155 10^3/uL (150-450); RED BLOOD COUNT 2.65 10^6/uL (4.00-5.40); RED CELL DISTRIBUTION WIDTH 13.5 % (11.5-14.5); WHITE BLOOD COUNT 7.3 10^3/uL (4.0-10.0)
[2018-07-22 06:30] LABS: AMMONIA 52 uMOL/L (<32)
[2018-07-22 06:35] LABS: ALBUMIN 2.6 GM/DL (3.2-5.2); ALBUMIN/GLOBULIN RATIO 0.74 (1.00-1.93); ALKALINE PHOSPHATASE 111 U/L (45-117); ALT/SGPT 44 U/L (12-78); ANION GAP 8 MEQ/L (8-16); AST/SGOT 39 U/L (7-37); BILIRUBIN,TOTAL 0.6 MG/DL (0.2-1.0); BLOOD UREA NITROGEN 7 MG/DL (7-18); CALCIUM LEVEL 7.9 MG/DL (8.8-10.2); CARBON DIOXIDE LEVEL 23 MEQ/L (21-32); CHLORIDE LEVEL 110 MEQ/L (98-107); CREATININE FOR GFR 0.54 MG/DL (0.55-1.30); GLOMERULAR FILTRATION RATE > 60.0 (>45); GLUCOSE, FASTING 183 MG/DL (70-100); POTASSIUM SERUM 3.5 MEQ/L (3.5-5.1); SODIUM LEVEL 141 MEQ/L (136-145); TOTAL PROTEIN 6.1 GM/DL (6.4-8.2)
[2018-07-22] MEDS: HumaLOG INSULIN (NovoLOG) PER UNIT SC ×3 (08:27→18:31)
[2018-07-22] MEDS: ASPIRIN 81 MG ENTERIC TAB PO (09:44)
[2018-07-22] MEDS: IRBESARTAN 150 MG TAB PO (09:46)
[2018-07-22] MEDS: ATENOLOL 25 MG TAB PO (09:47)
[2018-07-22] MEDS: MONTELUKAST 10 MG TAB PO (09:47)
[2018-07-22] MEDS: ENOXAPARIN 40 MG/0.4 ML SYRINGE (J1650) SC (09:48)
[2018-07-22] MEDS: NYSTATIN 100,000 UNITS/GM TOPICAL PWD 15 GM TOP ×2 (09:49→21:43)
[2018-07-22] MEDS: CYCLOBENZAPRINE 10 MG TAB PO ×2 (10:19→18:31)
[2018-07-22 11:59] LABS: BEDSIDE GLUCOSE 207 MG/DL (80-115)
[2018-07-22 12:32] LABS: AMMONIA 38 uMOL/L (<32)
[2018-07-22 12:33] LABS: ANION GAP 8 MEQ/L (8-16); BLOOD UREA NITROGEN 9 MG/DL (7-18); CALCIUM LEVEL 7.6 MG/DL (8.8-10.2); CARBON DIOXIDE LEVEL 24 MEQ/L (21-32); CHLORIDE LEVEL 108 MEQ/L (98-107); CREATININE FOR GFR 0.83 MG/DL (0.55-1.30); GLOMERULAR FILTRATION RATE > 60.0 (>45); GLUCOSE, FASTING 244 MG/DL (70-100); POTASSIUM SERUM 3.5 MEQ/L (3.5-5.1); SODIUM LEVEL 140 MEQ/L (136-145)
[2018-07-22] MEDS: NS 0.45% 1,000 ML IV ×2 (15:00→21:42)
[2018-07-22 16:53] LABS: BEDSIDE GLUCOSE 157 MG/DL (80-115)
[2018-07-22 19:41] LABS: AMMONIA 63 uMOL/L (<32)
[2018-07-22] MEDS: GABAPENTIN 100 MG CAP PO (21:42)
[2018-07-22] MEDS: DULoxetine 30 MG CAP (CYMBALTA) PO (21:42)
[2018-07-23 00:18] LABS: AMMONIA 69 uMOL/L (<32)
[2018-07-23] MEDS: LACTULOSE 20 GM/30 ML SYRUP UD PO ×6 (00:30→20:06)
[2018-07-23 06:23] LABS: BASO % 0.6 % (0.0-1.0); EOS # 0.5 10^3/uL (0.0-0.50); EOS % 8.2 % (0.0-3.0); HEMATOCRIT 26.1 % (36.0-47.0); HEMOGLOBIN 8.9 g/dl (12.0-15.5); IMMATURE GRANULOCYTE % 0.2 % (0-3.0); LYMPH # 1.4 10^3/uL (1.5-4.5); LYMPH % 21.4 % (24.0-44.0); MEAN CORPUSCULAR HEMOGLOBIN 33.6 pg (27.0-33.0); MEAN CORPUSCULAR HGB CONC 34.1 g/dl (32.0-36.5); MEAN CORPUSCULAR VOLUME 98.5 fl (80.0-96.0); MONO # 0.6 10^3/uL (0.0-0.8); MONO % 9.3 % (0.0-5.0); NEUTROPHILS # 3.9 10^3/uL (1.8-7.7); NEUTROPHILS % 60.3 % (36.0-66.0); PLATELET COUNT, AUTOMATED 167 10^3/uL (150-450); RED BLOOD COUNT 2.65 10^6/uL (4.00-5.40); RED CELL DISTRIBUTION WIDTH 14.1 % (11.5-14.5); WHITE BLOOD COUNT 6.5 10^3/uL (4.0-10.0)
[2018-07-23 06:44] LABS: AMMONIA 60 uMOL/L (<32)
[2018-07-23 06:46] LABS: ALBUMIN 2.8 GM/DL (3.2-5.2); ALBUMIN/GLOBULIN RATIO 0.76 (1.00-1.93); ALKALINE PHOSPHATASE 116 U/L (45-117); ALT/SGPT 46 U/L (12-78); ANION GAP 9 MEQ/L (8-16); AST/SGOT 35 U/L (7-37); BILIRUBIN,TOTAL 0.5 MG/DL (0.2-1.0); BLOOD UREA NITROGEN 7 MG/DL (7-18); CARBON DIOXIDE LEVEL 22 MEQ/L (21-32); CHLORIDE LEVEL 109 MEQ/L (98-107); CREATININE FOR GFR 0.65 MG/DL (0.55-1.30); GLOMERULAR FILTRATION RATE > 60.0 (>45); GLUCOSE, FASTING 224 MG/DL (70-100); POTASSIUM SERUM 3.6 MEQ/L (3.5-5.1); SODIUM LEVEL 140 MEQ/L (136-145); TOTAL PROTEIN 6.5 GM/DL (6.4-8.2)
[2018-07-23] MEDS: NS 0.45% 1,000 ML IV ×2 (08:27→19:14)
[2018-07-23] MEDS: HumaLOG INSULIN (NovoLOG) PER UNIT SC ×3 (08:27→17:24)
[2018-07-23] MEDS: ENOXAPARIN 40 MG/0.4 ML SYRINGE (J1650) SC (08:28)
[2018-07-23] MEDS: FLUBLOK(EGG FREE)(QUAD)INFLUENZA VACC 0.5ML SYRINGE (90682)18YRS&OLDER IM (08:31)
[2018-07-23] MEDS: ASPIRIN 81 MG ENTERIC TAB PO (08:33)
[2018-07-23] MEDS: POTASSIUM CHLORIDE 10 MEQ SR TABLET PO (08:34)
[2018-07-23] MEDS: ATENOLOL 25 MG TAB PO (08:34)
[2018-07-23] MEDS: MONTELUKAST 10 MG TAB PO (08:35)
[2018-07-23] MEDS: IRBESARTAN 150 MG TAB PO (08:35)
[2018-07-23] MEDS: NYSTATIN 100,000 UNITS/GM TOPICAL PWD 15 GM TOP ×2 (08:36→20:07)
[2018-07-23 12:21] LABS: BEDSIDE GLUCOSE 196 MG/DL (80-115)
[2018-07-23 12:51] LABS: AMMONIA 37 uMOL/L (<32)
[2018-07-23 17:04] LABS: BEDSIDE GLUCOSE 178 MG/DL (80-115)
[2018-07-23 18:36] LABS: AMMONIA 68 uMOL/L (<32)
[2018-07-23] MEDS: DULoxetine 30 MG CAP (CYMBALTA) PO (20:07)
[2018-07-23] MEDS: GABAPENTIN 100 MG CAP PO (20:07)
[2018-07-24 00:24] LABS: AMMONIA 72 uMOL/L (<32)
[2018-07-24] MEDS: CYCLOBENZAPRINE 10 MG TAB PO ×2 (01:31→12:42)
[2018-07-24] MEDS: LACTULOSE 20 GM/30 ML SYRUP UD PO ×4 (01:31→12:42)
[2018-07-24 05:48] LABS: BASO % 0.6 % (0.0-1.0); EOS # 0.4 10^3/uL (0.0-0.50); EOS % 7.6 % (0.0-3.0); HEMATOCRIT 24.7 % (36.0-47.0); HEMOGLOBIN 8.5 g/dl (12.0-15.5); IMMATURE GRANULOCYTE % 0.2 % (0-3.0); LYMPH # 1.3 10^3/uL (1.5-4.5); LYMPH % 24.9 % (24.0-44.0); MEAN CORPUSCULAR HGB CONC 34.4 g/dl (32.0-36.5); MEAN CORPUSCULAR VOLUME 98.8 fl (80.0-96.0); MONO # 0.6 10^3/uL (0.0-0.8); NEUTROPHILS # 2.9 10^3/uL (1.8-7.7); NEUTROPHILS % 55.7 % (36.0-66.0); PLATELET COUNT, AUTOMATED 124 10^3/uL (150-450); RED CELL DISTRIBUTION WIDTH 14.3 % (11.5-14.5); WHITE BLOOD COUNT 5.3 10^3/uL (4.0-10.0)
[2018-07-24 06:06] LABS: AMMONIA 93 uMOL/L (<32)
[2018-07-24 06:12] LABS: ALBUMIN 2.7 GM/DL (3.2-5.2); ALBUMIN/GLOBULIN RATIO 0.79 (1.00-1.93); ALKALINE PHOSPHATASE 109 U/L (45-117); ALT/SGPT 44 U/L (12-78); ANION GAP 7 MEQ/L (8-16); AST/SGOT 32 U/L (7-37); BILIRUBIN,TOTAL 0.4 MG/DL (0.2-1.0); BLOOD UREA NITROGEN 6 MG/DL (7-18); CALCIUM LEVEL 8.1 MG/DL (8.8-10.2); CARBON DIOXIDE LEVEL 24 MEQ/L (21-32); CHLORIDE LEVEL 110 MEQ/L (98-107); GLOMERULAR FILTRATION RATE > 60.0 (>45); GLUCOSE, FASTING 174 MG/DL (70-100); POTASSIUM SERUM 3.7 MEQ/L (3.5-5.1); SODIUM LEVEL 141 MEQ/L (136-145); TOTAL PROTEIN 6.1 GM/DL (6.4-8.2)
[2018-07-24] MEDS: HumaLOG INSULIN (NovoLOG) PER UNIT SC ×2 (08:53→12:42)
[2018-07-24] MEDS: ASPIRIN 81 MG ENTERIC TAB PO (08:54)
[2018-07-24] MEDS: IRBESARTAN 150 MG TAB PO (08:54)
[2018-07-24] MEDS: FUROSEMIDE 40 MG TAB PO (08:54)
[2018-07-24] MEDS: SPIRONOLACTONE 25 MG TAB PO (08:55)
[2018-07-24] MEDS: ATENOLOL 25 MG TAB PO (08:55)
[2018-07-24] MEDS: MONTELUKAST 10 MG TAB PO (08:55)
[2018-07-24] MEDS: ENOXAPARIN 40 MG/0.4 ML SYRINGE (J1650) SC (08:55)
[2018-07-24] MEDS: NYSTATIN 100,000 UNITS/GM TOPICAL PWD 15 GM TOP (08:56)
[2018-07-24 12:16] LABS: BEDSIDE GLUCOSE 172 MG/DL (80-115)
[2018-07-24 12:36] LABS: AMMONIA 62 uMOL/L (<32)
[2018-07-24] MEDS: ACETAMINOPHEN TAB 650MG DOSE (2X325MG) PO (12:42)
== END 2018-07-24 16:00 | disposition home or self-care (01) | DRG 812 ==
LOC: M MS5PR 07-20 21:48 → M ED 08:16 → M ED INP 12:07 → M ICU 14:39
PROVIDERS: Internal Medicine Nephrology
DX: T42.6X1A Poisoning by other antiepileptic and sedative-hypnotic drugs, accidental (unintentional), initial encounter (principal); K72.00 Acute and subacute hepatic failure without coma; G93.41 Metabolic encephalopathy; K75.81 Nonalcoholic steatohepatitis (NASH); K76.6 Portal hypertension; D69.6 Thrombocytopenia, unspecified; E55.9 Vitamin D deficiency, unspecified; E87.6 Hypokalemia; Z68.35 Body mass index [BMI] 35.0-35.9, adult; E66.9 Obesity, unspecified; E11.9 Type 2 diabetes mellitus without complications; I10 Essential (primary) hypertension; J45.909 Unspecified asthma, uncomplicated; G47.33 Obstructive sleep apnea (adult) (pediatric); M54.5 Low back pain; Z98.1 Arthrodesis status; Z90.49 Acquired absence of other specified parts of digestive tract; Z98.84 Bariatric surgery status; Z85.3 Personal history of malignant neoplasm of breast; Z87.891 Personal history of nicotine dependence; Z79.82 Long term (current) use of aspirin; Z79.84 Long term (current) use of oral hypoglycemic drugs; Z91.19 Patient's noncompliance with other medical treatment and regimen; Z79.899 Other long term (current) drug therapy

== ENCOUNTER → 2018-07-28 | Outpatient (REF) | payer BC ==
[2018-07-28 17:30] LABS: AMMONIA 32 uMOL/L (<32)
== END ==
LOC: M LABDRAW1 17:05
DX: Z98.84 Bariatric surgery status (principal)
CPT/HCPCS: 82140

== ENCOUNTER → 2018-08-06 | Outpatient (CLI) | payer BC ==
[2018-08-06 14:01] LABS: AMMONIA 18 uMOL/L (<32)
== END ==
LOC: M LAB 12:55
DX: K72.90 Hepatic failure, unspecified without coma (principal)
CPT/HCPCS: 82140

== ENCOUNTER → 2018-08-23 | Outpatient (CLI) | payer BC ==
[~2018-08-23] MED LIST changes: +ACET500T15 PO; +AMIT50TA PO; +AMOX875T2 PO; -ANAS1TAB PO; +ANAS1TAB2 PO; +ASPI81CH32 PO; +ASPI81TAEC PO; +AUGM875T28 PO; +BENZ200C70 PO; +CITRTAB15 PO; +DULO1CAP3 PO; +GABA-1171 PO; -GABA-279 PO; +LACT10SO29 PO; +LASI40TA9 PO; +MAGN500C PO; +METF500T4 PO; +METO1TAB87 PO; +MONT10TA2 PO; +NEUR100C PO; +SIME1CAP5 PO; +SPIR-10 PO; +SPIR50TA4 PO; +XIFA200T2 PO; +ZYRT10CA5 PO; -ZYRT10TA2 PO; +[UNRECOGNIZED DRUG - OTHER] TOP
[2018-08-23 12:43] LABS: BASO # 0.1 10^3/uL (0.0-0.2); BASO % 0.9 % (0.0-1.0); EOS # 0.6 10^3/uL (0.0-0.50); EOS % 9.6 % (0.0-3.0); HEMATOCRIT 35.7 % (36.0-47.0); HEMOGLOBIN 11.7 g/dl (12.0-15.5); LYMPH # 1.4 10^3/uL (1.5-4.5); LYMPH % 23.6 % (24.0-44.0); MEAN CORPUSCULAR HEMOGLOBIN 31.2 pg (27.0-33.0); MEAN CORPUSCULAR HGB CONC 32.8 g/dl (32.0-36.5); MEAN CORPUSCULAR VOLUME 95.2 fl (80.0-96.0); MONO # 0.4 10^3/uL (0.0-0.8); MONO % 7.5 % (0.0-5.0); NEUTROPHILS # 3.3 10^3/uL (1.8-7.7); NEUTROPHILS % 58.2 % (36.0-66.0); PLATELET COUNT, AUTOMATED 176 10^3/uL (150-450); RED BLOOD COUNT 3.75 10^6/uL (4.00-5.40); WHITE BLOOD COUNT 5.7 10^3/uL (4.0-10.0)
[2018-08-23 13:17] LABS: ALBUMIN 3.2 GM/DL (3.2-5.2); ALT/SGPT 37 U/L (12-78); BILIRUBIN,TOTAL 0.5 MG/DL (0.2-1.0); BLOOD UREA NITROGEN 9 MG/DL (7-18); CALCIUM LEVEL 8.9 MG/DL (8.8-10.2); CARBON DIOXIDE LEVEL 27 MEQ/L (21-32); CHLORIDE LEVEL 107 MEQ/L (98-107); CREATININE FOR GFR 0.88 MG/DL (0.55-1.30); GLOMERULAR FILTRATION RATE > 60.0 (>45); GLUCOSE, FASTING 119 MG/DL (70-100); POTASSIUM SERUM 3.6 MEQ/L (3.5-5.1); SODIUM LEVEL 142 MEQ/L (136-145); TOTAL PROTEIN 7.2 GM/DL (6.4-8.2)
== END ==
LOC: M LAB 12:15
PROVIDERS: ATTEND Physician Assistant
DX: K72.90 Hepatic failure, unspecified without coma (principal); K74.60 Unspecified cirrhosis of liver

== ENCOUNTER → 2018-12-02 | Outpatient (REF) | payer BC ==
[~2018-12-02] MED LIST changes: -/FELO5TASR PO; -/MOXI40TA PO; -ACET50TA PO; -ASPI81CH32 PO; +ASPI81CH33 PO; +AVEL1TAB2 PO; +BUPR300T34 PO; +CALTCHW4 PO; -DULO30CA PO; +DULO30CA9 PO; +FELO1TAB12 PO; +HYDR-2541 PO; -HYDR25TAB PO; +MAGN500T12 PO; +MAPA500T17 PO; +OXYB5TAB; +OXYB5TAB PO; +PANT20TA2; +PROAAER10 INH; +RANI150T14 PO; +TRIA1CR80 TOP; +VITA500T40 PO; +VITMTA PO; +XIFA550T PO
[2018-12-02 13:44] LABS: BASO # 0.1 10^3/uL (0.0-0.2); BASO % 0.9 % (0.0-1.0); EOS # 0.5 10^3/uL (0.0-0.50); EOS % 8.6 % (0.0-3.0); HEMATOCRIT 36.5 % (36.0-47.0); HEMOGLOBIN 12.8 g/dl (12.0-15.5); LYMPH # 1.7 10^3/uL (1.5-4.5); LYMPH % 30.3 % (24.0-44.0); MEAN CORPUSCULAR HEMOGLOBIN 32.2 pg (27.0-33.0); MEAN CORPUSCULAR HGB CONC 35.1 g/dl (32.0-36.5); MEAN CORPUSCULAR VOLUME 91.7 fl (80.0-96.0); MONO # 0.5 10^3/uL (0.0-0.8); MONO % 9.7 % (0.0-5.0); NEUTROPHILS # 2.7 10^3/uL (1.8-7.7); NEUTROPHILS % 50.3 % (36.0-66.0); PLATELET COUNT, AUTOMATED 148 10^3/uL (150-450); RED BLOOD COUNT 3.98 10^6/uL (4.00-5.40); WHITE BLOOD COUNT 5.4 10^3/uL (4.0-10.0)
[2018-12-02 14:06] LABS: HEMOGLOBIN A1c 9.4 %
[2018-12-02 14:11] LABS: ALBUMIN 3.4 GM/DL (3.2-5.2); ALT/SGPT 45 U/L (12-78); BILIRUBIN,TOTAL 0.6 MG/DL (0.2-1.0); BLOOD UREA NITROGEN 9 MG/DL (7-18); CALCIUM LEVEL 8.9 MG/DL (8.8-10.2); CARBON DIOXIDE LEVEL 26 MEQ/L (21-32); CHLORIDE LEVEL 112 MEQ/L (98-107); CREATININE FOR GFR 0.66 MG/DL (0.55-1.30); FOLATE > 24.0 NG/ML; FREE T4 0.66 NG/DL (0.76-1.46); GLOMERULAR FILTRATION RATE > 60.0 (>45); GLUCOSE, FASTING 155 MG/DL (70-100); POTASSIUM SERUM 3.6 MEQ/L (3.5-5.1); SODIUM LEVEL 146 MEQ/L (136-145); TOTAL 25(OH) VITAMIN D 37.1 NG/ML (30.0-100.0); TOTAL PROTEIN 7.2 GM/DL (6.4-8.2); VITAMIN B12 LEVEL 1873 PG/ML
== END ==
LOC: M LABDRAW1 13:19
PROVIDERS: ATTEND Physician Assistant
DX: Z98.84 Bariatric surgery status (principal); E11.9 Type 2 diabetes mellitus without complications; R53.83 Other fatigue; K72.90 Hepatic failure, unspecified without coma

== ENCOUNTER 2018-12-04 18:30 | Inpatient (IN) | payer BC, OTHER ==
[~2018-12-04] VITALS: Ht 175.3 cm; Wt 106.0 kg
[~2018-12-04 18:30] MED LIST changes: -BUPR300T34 PO; -CALTCHW4 PO; -MAGN500T12 PO; -OXYB5TAB; -OXYB5TAB PO; -PANT20TA2; -PROAAER10 INH; -RANI150T14 PO; -TRIA1CR80 TOP; -VITA500T40 PO; -VITMTA PO; -XIFA550T PO
[2018-12-04] MEDS ORDERED: RANI150T14 PO (18:42)
[2018-12-04] MEDS ORDERED: PANT20TA2 (18:42)
[2018-12-04] MEDS ORDERED: OXYB5TAB (18:42)
[2018-12-04] MEDS ORDERED: BUPR300T34 PO (18:42)
[2018-12-04 19:14] LABS: BASO % 0.8 % (0.0-1.0); EOS # 0.5 10^3/uL (0.0-0.50); EOS % 8.8 % (0.0-3.0); HEMATOCRIT 37.9 % (36.0-47.0); HEMOGLOBIN 12.8 g/dl (12.0-15.5); LYMPH # 1.6 10^3/uL (1.5-4.5); LYMPH % 30.4 % (24.0-44.0); MEAN CORPUSCULAR HEMOGLOBIN 31.4 pg (27.0-33.0); MEAN CORPUSCULAR HGB CONC 33.8 g/dl (32.0-36.5); MEAN CORPUSCULAR VOLUME 93.1 fl (80.0-96.0); MONO # 0.4 10^3/uL (0.0-0.8); MONO % 8.2 % (0.0-5.0); NEUTROPHILS # 2.7 10^3/uL (1.8-7.7); NEUTROPHILS % 51.8 % (36.0-66.0); PLATELET COUNT, AUTOMATED 119 10^3/uL (150-450); RED BLOOD COUNT 4.07 10^6/uL (4.00-5.40); WHITE BLOOD COUNT 5.1 10^3/uL (4.0-10.0)
[2018-12-04] MEDS ORDERED: NS 1,000 ML IV ONE (19:45)
[2018-12-04 19:56] LABS: ALBUMIN 3.6 GM/DL (3.2-5.2); ALT/SGPT 46 U/L (12-78); BILIRUBIN,DIRECT 0.3 MG/DL (0.0-0.2); BILIRUBIN,TOTAL 0.8 MG/DL (0.2-1.0); BLOOD UREA NITROGEN 13 MG/DL (7-18); CALCIUM LEVEL 9.1 MG/DL (8.8-10.2); CARBON DIOXIDE LEVEL 23 MEQ/L (21-32); CHLORIDE LEVEL 111 MEQ/L (98-107); CREATININE FOR GFR 0.83 MG/DL (0.55-1.30); GLOMERULAR FILTRATION RATE > 60.0 (>45); GLUCOSE, FASTING 283 MG/DL (70-100); POTASSIUM SERUM 3.5 MEQ/L (3.5-5.1); SODIUM LEVEL 143 MEQ/L (136-145); TOTAL PROTEIN 7.4 GM/DL (6.4-8.2)
--- NOTE | 2018-12-04 20:15 | REPVR ---
EXAM: CT Head Without Contrast EXAM DATE/TIME: 12/04/2018 7:37 PM CLINICAL HISTORY: 63 years old, female; Pain and injury or trauma; Injury history: Unknown; Initial encounter; Blunt trauma (contusions or hematomas); Consciousness not specified; Headache; Headache not specified; Additional info: Headache, head injury TECHNIQUE: Imaging protocol: Axial computed tomography images of the head/brain without contrast. Radiation optimization: All CT scans at this facility use at least one of these dose optimization techniques: automated exposure control; mA and/or kV adjustment per patient size (includes targeted exams where dose is matched to clinical indication); or iterative reconstruction. COMPARISON: CT Head without contrast 07/18/2018 9:57 AM FINDINGS: Brain: Unremarkable. No hemorrhage. No significant white matter disease. No edema. Ventricles: Unremarkable. No ventriculomegaly. Bones/joints: Unremarkable. No acute fracture. Sinuses: Visualized sinuses are unremarkable. No acute sinusitis. Mastoid air cells: Visualized mastoid air cells are unremarkable. No mastoid effusion. Soft tissues: Unremarkable. IMPRESSION: No acute abnormality. Electronically signed by: Zoran Burkett On 12/04/2018 20:14:51 PM
[2018-12-04 21:09] LABS: INR 1.19; PROTHROMBIN TIME 15.3 SECONDS (12.1-14.4)
[2018-12-04 21:10] LABS: PARTIAL THROMBOPLASTIN TIME 36.8 SECONDS (25.4-37.6)
[2018-12-04] MEDS ORDERED: PROAAER10 INH (23:06)
[2018-12-04] MEDS ORDERED: SPIR-10 PO (23:06)
[2018-12-04] MEDS ORDERED: XIFA550T PO (23:06)
[2018-12-04] MEDS ORDERED: VITMTA PO (23:06)
[2018-12-04] MEDS ORDERED: SYMB16INH INH (23:06)
[2018-12-04] MEDS ORDERED: MAGN500T12 PO (23:06)
[2018-12-04] MEDS ORDERED: CALTCHW4 PO (23:06)
[2018-12-04] MEDS ORDERED: OXYB5TAB PO (23:06)
[2018-12-04] MEDS ORDERED: LACT10SO29 PO (23:06)
[2018-12-04] MEDS ORDERED: TRIA1CR80 TOP (23:06)
[2018-12-04] MEDS ORDERED: VITA500T40 PO (23:08)
[2018-12-04 23:15] VITALS: BP 152/72
[2018-12-04] MEDS ORDERED: ALBUTEROL 90 MCG/ACT 8GM HFA INHALER INH PRN (23:30)
[2018-12-04] MEDS ORDERED: GLUCAGON FOR INJ 1 MG VIAL (J1610) SC PRN (23:45)
[2018-12-04] MEDS ORDERED: GLUCOSE 4 GM CHEW TABLET PO PRN (23:45)
[2018-12-04] MEDS ORDERED: DEXTROSE 50% 50 ML SYRINGE IV PRN (23:45)
[2018-12-05] MEDS ORDERED: LACTULOSE 20 GM/30 ML SYRUP UD PO SCH
[2018-12-05] MEDS: ASPIRIN 81 MG ENTERIC TAB PO SCH ×2 (00:10→20:34)
[2018-12-05] MEDS: oxyBUTYnin *DITROPAN XL* 5 MG TABCR PO SCH ×2 (00:10→20:35)
[2018-12-05] MEDS: MONTELUKAST 10 MG TAB PO SCH ×2 (00:10→20:36)
[2018-12-05] MEDS: rifAXIMin 550 MG TAB (XIFAXAN) PO SCH ×3 (00:14→20:35)
--- NOTE | 2018-12-05 01:05 | HPEPDOC ---
General Date of Admission 12/04/18 Attending Physician: TAMI COLON MD Chief Complaint The patient is a 63-year-old female admitted with a reason for visit of Abnormal Lab Results. 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 She had gone for a routine visit to her PMD on 12/01 and had complained of increased disbalance, increased sleeping , falling asleep at inappropriate times, increasing forget fullness , confusion about time, lack of focus and concentration, difficulty with words and numbers so blood work was done the next day . Today she checked the blood work in the patient portal and found that her ammonia was 213. Her usual numbers are in the 60s. She did mention that she may miss some doses of lactulose as has been having difficulty in remembering if she has taken her medications or not. So she presented to the ED. In the ED repeat ammonia was 147. She did say she was a little better and mentioned that her BIPAP setting were adjusted down this week after her visit with the PMD as she has lost about 100 lbs after her gastric bypass surgery. In the ed she was found to have slightly slow thought processes and slow speech but other worley was alert and oriented x 3. She is being admitted for acute on chronic hepatic encephalopathy. Home Medications Scheduled Aspirin (Aspirin EC) 81 Mg Tabec, 81 MG PO QPM, (Reported) Atenolol (Atenolol) 25 Mg Tab, 25 MG PO DAILY, (Reported) Budesonide/Formoterol (Symbicort 160-4.5 Mcg Inhaler) 6 Gm Hfa.aer.ad, 2 PUFF INH BID, (Reported) UNSURE OF DOSE; CALLING PHARMACY IN AM TO VERIFY Bupropion HCl (Bupropion Xl) 300 Mg Tab.er.24h, 300 MG PO DAILY, (Reported) Calcium Carbonate/Vitamin D3 (Caltrate 600 + D Soft Chew Tab) 1 Each Tab.chew, 2 CHW PO QPM, (Reported) Cetirizine HCl (Cetirizine HCl) 10 Mg Tab, 10 MG PO DAILY, (Reported) Cyanocobalamin (Vitamin B-12) (Vitamin B-12) 500 Mcg Tablet, 500 MCG PO DAILY, (Reported) UNSURE OF DOSE; WILL ASK TO VERIFY AT HOME Duloxetine Hcl (Duloxetine HCl) 60 Mg Cap, 60 MG PO DAILY, (Reported) Irbesartan (Irbesartan) 300 Mg Tab, 150 MG PO DAILY, (Reported) UNSURE OF DOSE; CALLING PHARMACY IN MORNING TO VERIFY Magnesium Oxide (Magnesium Oxide) 500 Mg Tablet, 500 MG PO QPM, (Reported) Metformin HCl (Metformin HCl ER) 500 Mg Tab, 1,000 MG PO BID, (Reported) Montelukast Sodium (Montelukast Sodium) 10 Mg Tab, 10 MG PO QPM, (Reported) Multivitamins (Thera M Plus Tablet) 1 Each Tablet, 2 TAB PO DAILY, (Reported) Oxybutynin Chloride (Oxybutynin Chloride ER) 5 Mg Tab.er.24, 5 MG PO QPM, (Reported) Ranitidine HCl (Ranitidine HCl) 150 Mg Tablet, 150 MG PO DAILY, (Reported) Rifaximin (Xifaxan) 550 Mg Tablet, 550 MG PO BID, (Reported) Spironolactone (Spironolactone) 25 Mg Tablet, 25 MG PO DAILY, (Reported) Scheduled PRN Acetaminophen (Acetaminophen) 500 Mg Tab, 1,000 MG PO Q6H PRN for PAIN, (Reported) Albuterol Sulfate (Proair Hfa) 8.5 Gm Hfa.aer.ad, 2 PUFF INH Q4H PRN for SHORTNESS OF BREATH, (Reported) Cyclobenzaprine HCl (Cyclobenzaprine HCl) 10 Mg Tab, 10 MG PO QHS PRN for MUSCLE SPASMS, (Reported) Lactulose (Lactulose) 10 Gm/15 Ml Solution, 15 ML PO BID PRN for CONSTIPATION, (Reported) Triamcinolone Acet (Triamcinolone Acetonide 0.1% Crm) 80 Gm Cream..g., 1 APLCT TOP DAILY PRN for RASH, (Reported) APPLY TO SPOTS ON L HAND AND R FOOT Allergies Coded Allergies: ENVIROMENTAL (Verified Allergy, Unknown, 11/30/06) No Known Drug Allergies (Verified Allergy, Unknown, 12/04/18) Past Medical History Medical History 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 Diabetes. Hypertension. Asthma. History of breast cancer of the left breast in June 2014. Sleep apnea, on BIPAP 08/08 Vitamin D deficiency. Hypertension. Thrombocytopenia. Obesity with history of lap band in the past and then gastric bypass surgery on 05/17/2018. Chronic low back pain. Chronic neck pain with history of cervical fusion in the past. Possible history of congestive heart failure. Right-sided renal calculus seen on CT scan of the abdomen. Diverticulosis of the colon. Surgical History Lap band 7 years ago. Gastric bypass surgery for obesity on 05/17/2018. Bilateral knee arthroscopies. Cervical fusion. Left breast surgery for breast cancer. Left shoulder surgery. Cholecystectomy. Bilateral wrist surgery for carpal tunnel repair. Rotator cuff repair. Social History * Smoker: Denies Alcohol: Denies Drugs: denies Review of Systems Constitutional: Denies: Chills, Fever, Night Sweats Eyes: Denies: Pain, Vision change ENT: Denies: Head Aches, Ear Pain, Dysphagia Skin: Denies: Rash, Lesions, Breakdown Pulmonary: Denies: Dyspnea, Cough Cardiovascular: Denies: Chest Pain, Palpitations, Orthopnea, Paroxysmal Noc. Dyspnea, Lt Headedness Gastrointestinal: Reports: Constipation; Denies: Nausea, Vomiting, Abdominal Pain, Melena, Hematochezia Musculoskeletal: Reports: Neck Pain, Back Pain Neurological: Reports: Weakness, Incoordination, Change in speech, Confusion Psych: Reports: Memory Issues Physical Examination General Exam: Positive: Alert, Cooperative, No Acute Distress Eye Exam: Positive: PERRLA, Conjunctiva & lids normal, EOMI; Negative: Sclera icteric ENT Exam: Positive: Atraumatic, Mucous membr. moist/pink, Pharynx Normal Neck Exam: Positive: Supple; Negative: JVD, thyromegaly Chest Exam: Positive: Clear to auscultation, Normal air movement Heart Exam: Positive: Rate Normal, Regular Rhythm, Normal S1, Normal S2; Negative: Murmurs, Rubs Abdomen Exam: Positive: Normal bowel sounds, Soft; Negative: Tenderness, Hepatospenomegaly Extremity Exam: Negative: Clubbing, Cyanosis, Edema Skin Exam: Positive: Nl turgor and temperature; Negative: Breakdown, Lesion Vital Signs Vital Signs Date Time Temp Pulse Resp B/P (MAP) Pulse Ox O2 Delivery O2 Flow Rate FiO2 12/04/18 21:15 72 146/74 (98) 98 12/04/18 18:31 97.8 20 Room Air Laboratory Data Labs 24H Laboratory Tests 2 12/04/18 18:52: Immature Granulocyte % (Auto) 0.0, White Blood Count 5.1, Red Blood Count 4.07, Hemoglobin 12.8, Hematocrit 37.9, Mean Corpuscular Volume 93.1, Mean Corpuscular Hemoglobin 31.4, Mean Corpuscular Hemoglobin Concent 33.8, Red Cell Distribution Width 15.1H, Platelet Count 119L, Neutrophils (%) (Auto) 51.8, Lymphocytes (%) (Auto) 30.4, Monocytes (%) (Auto) 8.2H, Eosinophils (%) (Auto) 8.8H, Basophils (%) (Auto) 0.8, Neutrophils # (Auto) 2.7, Lymphocytes # (Auto) 1.6, Monocytes # (Auto) 0.4, Eosinophils # (Auto) 0.5, Basophils # (Auto) 0.0, Nucleated Red Blood Cells % (auto) 0.0, Anion Gap 9, Glomerular Filtration Rate > 60.0, Calcium Level 9.1, Aspartate Amino Transf (AST/SGOT) 35, Alanine Aminotransferase (ALT/SGPT) 46, Alkaline Phosphatase 127H, Total Bilirubin 0.8, Direct Bilirubin 0.3H, Ammonia 147H, Total Protein 7.4, Albumin 3.6, Albumin/Globulin Ratio 0.95L 12/04/18 20:34: Prothrombin Time 15.3H, Prothromb Time International Ratio 1.19, Activated Partial Thromboplast Time 36.8 CBC/BMP Laboratory Tests 12/04/18 18:52 Red Blood Count 4.07, Mean Corpuscular Volume 93.1, Mean Corpuscular Hemoglobin 31.4, Mean Corpuscular Hemoglobin Concent 33.8, Red Cell Distribution Width 15.1 H, Neutrophils (%) (Auto) 51.8, Lymphocytes (%) (Auto) 30.4, Monocytes (%) (Auto) 8.2 H, Eosinophils (%) (Auto) 8.8 H, Basophils (%) (Auto) 0.8, Neutrophils # (Auto) 2.7, Lymphocytes # (Auto) 1.6, Monocytes # (Auto) 0.4, Eosinophils # (Auto) 0.5, Basophils # (Auto) 0.0 Assessment/Plan 63 year old female with 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 She had gone for a routine visit to her PMD on 12/01 and had complained of increased disbalance, increased sleeping , falling asleep at inappropriate times, increasing forget fullness , confusion about time, lack of focus and concentration, difficulty with words and numbers so blood work was done the next day . Today she checked the blood work in the patient portal and found that her ammonia was 213. Her usual numbers are in the 60s. She did mention that she may miss some doses of lactulose as has been having difficulty in remembering if she has taken her medications or not. So she presented to the ED. In the ED repeat ammonia was 147. She did say she was a little better and mentioned that her BIPAP setting were adjusted down this week after her visit with the PMD as she has lost about 100 lbs after her gastric bypass surgery. In the ed she was found to have slightly slow thought processes and slow speech but other worley was alert and oriented x 3. She is being admitted for acute on chronic hepatic encephalopathy. Acute on chronic hepatic encephalopathy most probably due to constipation will increase lactulose dose to q 4 hours till four good bowel movements then reduce dose continue rifaximin. no signs of infection or dehydration or electrolyte imbalance or GIB. 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 continue spironolactone, atenolol Diabetes. will give lispro as per sliding scale will hold metformin in the the hospital Hypertension. continue home medications irbesartan and atenolol Asthma. continue symbicort and albuterol prn Sleep apnea, on BIPAP 08/08 can use own machine. Obesity with history of lap band in the past and then gastric bypass surgery on 05/17/2018. continue with bariatric surgery dietary recommendations patient knows what she can and cannot eat to follow her usual regimen. Chronic low back pain. Chronic neck pain with history of cervical fusion in the past. continue cymbalta Right renal stones no issues at this point. Anxiety continue Bupropion Plan / VTE VTE Prophylaxis Ordered?: Yes TAMI COLON MD Dec 04, 2018 22:50
[2018-12-05] MEDS: LACTULOSE 20 GM/30 ML SYRUP UD PO SCH ×5 (05:37→20:54)
[2018-12-05 06:00] VITALS: BP 138/73
[2018-12-05 06:30] LABS: BASO % 0.6 % (0.0-1.0); EOS # 0.4 10^3/uL (0.0-0.50); EOS % 7.3 % (0.0-3.0); HEMATOCRIT 34.6 % (36.0-47.0); HEMOGLOBIN 11.9 g/dl (12.0-15.5); LYMPH # 1.4 10^3/uL (1.5-4.5); LYMPH % 26.7 % (24.0-44.0); MEAN CORPUSCULAR HEMOGLOBIN 31.7 pg (27.0-33.0); MEAN CORPUSCULAR HGB CONC 34.4 g/dl (32.0-36.5); MEAN CORPUSCULAR VOLUME 92.3 fl (80.0-96.0); MONO # 0.5 10^3/uL (0.0-0.8); MONO % 10.1 % (0.0-5.0); NEUTROPHILS # 2.8 10^3/uL (1.8-7.7); NEUTROPHILS % 55.1 % (36.0-66.0); PLATELET COUNT, AUTOMATED 107 10^3/uL (150-450); RED BLOOD COUNT 3.75 10^6/uL (4.00-5.40); WHITE BLOOD COUNT 5.1 10^3/uL (4.0-10.0)
[2018-12-05 07:01] LABS: BLOOD UREA NITROGEN 11 MG/DL (7-18); CALCIUM LEVEL 8.8 MG/DL (8.8-10.2); CARBON DIOXIDE LEVEL 23 MEQ/L (21-32); CHLORIDE LEVEL 115 MEQ/L (98-107); CREATININE FOR GFR 0.62 MG/DL (0.55-1.30); GLOMERULAR FILTRATION RATE > 60.0 (>45); GLUCOSE, FASTING 220 MG/DL (70-100); POTASSIUM SERUM 3.5 MEQ/L (3.5-5.1); SODIUM LEVEL 147 MEQ/L (136-145)
[2018-12-05] MEDS: HumaLOG INSULIN (NovoLOG) PER UNIT SC SCH ×3 (07:30→17:30)
[2018-12-05] MEDS: SPIRONOLACTONE 25 MG TAB PO SCH (08:23)
[2018-12-05] MEDS: buPROPion **XL** TABLET 150MG (WELLBUTRIN XL) PO SCH (08:24)
[2018-12-05] MEDS: DULoxetine 30 MG CAP (CYMBALTA) PO SCH (08:24)
[2018-12-05] MEDS: ATENOLOL 25 MG TAB PO SCH (08:26)
[2018-12-05] MEDS: FAMOTIDINE 20 MG TAB PO SCH ×2 (08:26→20:35)
[2018-12-05] MEDS: CETIRIZINE (ZyrTEC) 10 MG TAB PO SCH (08:26)
[2018-12-05] MEDS: LEVEMIR (INSULIN DETEMIR) 1 UNITS/0.01ML SC SCH (08:26)
[2018-12-05] MEDS: SYMBICORT 160/4.5MCG INHALER 6GM INH SCH ×2 (09:00→21:01)
[2018-12-05] MEDS ORDERED: ANAS1TAB2 PO (10:15)
--- NOTE | 2018-12-05 11:46 | IPNPDOC ---
Text Note Date of Service The patient was seen on 12/05/18. NOTE Subjective: Patient is a 63 year old female with Cirrhosis 2/2 CANALES, Thrombocytopenia, Portal HTN, Hx of Hepatic Encephalopathy, Morbid Obesity s/p Gastric Bypass (2018), ALYSSA on BIPAP, HTN, DM2, Anxiety, Chronic Back & Neck pain, who presented to the ER after she saw her PCP. She noted increased sleep, imbalance and confusion. She was found to have an elevated Ammonia level and was admitted to the hospitalist service for further evaluation and treatment. Patient was seen and examined at the bedside. Currently patient notes that her confusion is improved, still expresses some difficulty with focus. Denies any chest pain, shortness breath or palpitations. Denies any nausea, vomiting. Denies any abdominal pain. Has had 1 bowel movement. Denies discomfort with urination. Objective: Vitals (See below) General: Lying in bed, no acute distress, comfortable, AAOx3 HEENT: NC, AT CVS: RRR, +S1S2 Lungs: Fair air entry b/l, -w/r/r Abdomen: Soft, ND, NT Extremities: - Edema, - Calf tenderness Assessment and plan: Confusion / Imbalance / Lack of focus - likely 2/2 hepatic encephalopathy - possibly induced by constipation - Patient presented to the emergency room after visiting her primary care provider for above symptoms - Patient found to have confusion emergency room - Lab work revealed elevated ammonia that has been improving - CT head 12/04: No acute abnormality. - c/w Rifaxamin - Will continue with Lactulose and titrate for 2-3 bowel movements daily Cirrhosis 2/2 CANALES, Thrombocytopenia, Portal HTN - Follows with GI physician in [place] - c/w Spironolactone and Atenolol Morbid Obesity s/p Gastric Bypass (2018) - Follows a specific diet regimen as per her outpatient dietary provider - Completing medical care ALYSSA on BIPAP - May allow home BiPAP use Asthma - No evidence of exacerbation - c/w inhaled therapy as ordered HTN - BP well controlled - c/w Spironolactone, Irbesartan and Atenolol IDDM2 - c/w ISS and Levemir Anxiety - c/w Duloxetine and Bupropion Chronic Back & Neck pain - s/p - Currently not on any pain medication GERD - c/w Famotidine DVT prophylaxis - c/w TEDs/Sequentials VS,Fishbone, I+O VS, Fishbone, I+O Laboratory Tests 12/04/18 18:52 Red Blood Count 4.07, Mean Corpuscular Volume 93.1, Mean Corpuscular Hemoglobin 31.4, Mean Corpuscular Hemoglobin Concent 33.8, Red Cell Distribution Width 15.1 H, Neutrophils (%) (Auto) 51.8, Lymphocytes (%) (Auto) 30.4, Monocytes (%) (Auto) 8.2 H, Eosinophils (%) (Auto) 8.8 H, Basophils (%) (Auto) 0.8, Neutrophils # (Auto) 2.7, Lymphocytes # (Auto) 1.6, Monocytes # (Auto) 0.4, Eosinophils # (Auto) 0.5, Basophils # (Auto) 0.0 12/05/18 05:22 Red Blood Count 3.75 L, Mean Corpuscular Volume 92.3, Mean Corpuscular Hemoglobin 31.7, Mean Corpuscular Hemoglobin Concent 34.4, Red Cell Distribution Width 15.2 H, Neutrophils (%) (Auto) 55.1, Lymphocytes (%) (Auto) 26.7, Monocytes (%) (Auto) 10.1 H, Eosinophils (%) (Auto) 7.3 H, Basophils (%) (Auto) 0.6, Neutrophils # (Auto) 2.8, Lymphocytes # (Auto) 1.4 L, Monocytes # (Auto) 0.5, Eosinophils # (Auto) 0.4, Basophils # (Auto) 0.0, Calcium Level 8.8 Vital Signs Date Time Temp Pulse Resp B/P (MAP) Pulse Ox O2 Delivery O2 Flow Rate FiO2 12/05/18 08:26 80 142/72 12/05/18 06:00 97.8 19 97 12/04/18 18:31 Room Air I&O- Last 24 Hours up to 6 AM 12/05/18 06:00 Intake Total 990 ml Output Total 1100 ml Balance -110 ml REJI JOHNSON MD Dec 05, 2018 11:46
[2018-12-05] MEDS: IRBESARTAN 150 MG TAB PO SCH (12:12)
[2018-12-05] MEDS ORDERED: IBUPROFEN 600 MG TAB PO PRN (12:30)
[2018-12-05] MEDS ORDERED: ACETAMINOPHEN TAB 650MG DOSE (2X325MG) PO ONE (12:45)
[2018-12-05 14:00] VITALS: BP 156/72
[2018-12-05] MEDS ORDERED: HumaLOG INSULIN (NovoLOG) PER UNIT SC SCH (21:00)
[2018-12-05 22:00] VITALS: BP 126/58
[2018-12-06] MEDS: LACTULOSE 20 GM/30 ML SYRUP UD PO SCH ×3 (00:20→08:31)
[2018-12-06 05:53] LABS: BASO % 0.8 % (0.0-1.0); EOS # 0.4 10^3/uL (0.0-0.50); EOS % 8.5 % (0.0-3.0); HEMATOCRIT 33.5 % (36.0-47.0); HEMOGLOBIN 11.6 g/dl (12.0-15.5); LYMPH # 1.5 10^3/uL (1.5-4.5); LYMPH % 29.6 % (24.0-44.0); MEAN CORPUSCULAR HEMOGLOBIN 32.1 pg (27.0-33.0); MEAN CORPUSCULAR HGB CONC 34.6 g/dl (32.0-36.5); MEAN CORPUSCULAR VOLUME 92.8 fl (80.0-96.0); MONO # 0.5 10^3/uL (0.0-0.8); MONO % 9.5 % (0.0-5.0); NEUTROPHILS # 2.5 10^3/uL (1.8-7.7); NEUTROPHILS % 51.4 % (36.0-66.0); PLATELET COUNT, AUTOMATED 107 10^3/uL (150-450); RED BLOOD COUNT 3.61 10^6/uL (4.00-5.40); WHITE BLOOD COUNT 4.9 10^3/uL (4.0-10.0)
[2018-12-06 06:00] VITALS: BP 139/71
[2018-12-06 06:12] LABS: BLOOD UREA NITROGEN 10 MG/DL (7-18); CALCIUM LEVEL 8.6 MG/DL (8.8-10.2); CARBON DIOXIDE LEVEL 25 MEQ/L (21-32); CHLORIDE LEVEL 115 MEQ/L (98-107); CREATININE FOR GFR 0.56 MG/DL (0.55-1.30); GLOMERULAR FILTRATION RATE > 60.0 (>45); GLUCOSE, FASTING 162 MG/DL (70-100); POTASSIUM SERUM 3.2 MEQ/L (3.5-5.1); SODIUM LEVEL 147 MEQ/L (136-145)
[2018-12-06] MEDS: HumaLOG INSULIN (NovoLOG) PER UNIT SC SCH (07:22)
[2018-12-06] MEDS ORDERED: POTASSIUM CHLORIDE 10 MEQ SR TABLET PO ONE (07:30)
[2018-12-06 07:35] LABS: MAGNESIUM LEVEL 1.6 MG/DL (1.8-2.4)
[2018-12-06] MEDS: SYMBICORT 160/4.5MCG INHALER 6GM INH SCH (07:51)
[2018-12-06] MEDS: LEVEMIR (INSULIN DETEMIR) 1 UNITS/0.01ML SC SCH (08:33)
[2018-12-06] MEDS: IRBESARTAN 150 MG TAB PO SCH (08:34)
[2018-12-06] MEDS: buPROPion **XL** TABLET 150MG (WELLBUTRIN XL) PO SCH (08:34)
[2018-12-06] MEDS: FAMOTIDINE 20 MG TAB PO SCH (08:35)
[2018-12-06] MEDS: DULoxetine 30 MG CAP (CYMBALTA) PO SCH (08:36)
[2018-12-06] MEDS: SPIRONOLACTONE 25 MG TAB PO SCH (08:36)
[2018-12-06 08:37] VITALS: BP 128/58
[2018-12-06] MEDS: CETIRIZINE (ZyrTEC) 10 MG TAB PO SCH (08:37)
[2018-12-06] MEDS: ATENOLOL 25 MG TAB PO SCH (08:37)
[2018-12-06] MEDS: rifAXIMin 550 MG TAB (XIFAXAN) PO SCH (08:38)
[2018-12-06] MEDS ORDERED: ACETAMINOPHEN TAB 650MG DOSE (2X325MG) PO PRN (08:45)
[2018-12-06 09:00] VITALS: BP 128/58
[2018-12-06] MEDS ORDERED: LACT10SO29 PO (09:21)
--- NOTE | 2018-12-06 09:29 | REP ---
Duplex extremity venous ultrasound: Left lower extremity. History: Left leg swelling. Findings: The deep veins are anechoic and fully compressible from the groin to the popliteal fossa in the left lower extremity. Color flow imaging is homogeneous. Spectral Doppler interrogation demonstrates intact respiratory variation in flow and normal manual augmentation of flow. There is no evidence of deep vein thrombosis. Impression: Negative left lower extremity duplex venous ultrasound. No evidence of deep vein thrombosis. Electronically Signed by Cr Jett MD 12/05/2018 09:37 A
--- NOTE | 2018-12-06 11:05 | DS.PDOC ---
Discharge Summary General Date of Admission Dec 04, 2018 at 22:22 Date of Discharge 12/06/2018 Discharge Summary PROCEDURES PERFORMED DURING STAY: [None]. 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 She noted increased sleep, imbalance and confusion. She was found to have an elevated Ammonia level and was admitted to the hospitalist service for further evaluation and treatment. HOSPITAL COURSE: Confusion / Imbalance / Lack of focus - likely 2/2 hepatic encephalopathy - possibly induced by constipation - Patient presented to the emergency room after visiting her primary care provider for above symptoms - Patient found to have confusion emergency room - Lab work revealed elevated ammonia that has been improving - CT head 12/04: No acute abnormality. 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, Thrombocytopenia, Portal HTN - Follows with GI physician in [place] - c/w Spironolactone and Atenolol Morbid Obesity s/p Gastric Bypass (2018) - Follows a specific diet regimen as per her outpatient dietary provider - Complicating medical care ALYSSA on BIPAP - May allow home BiPAP use Asthma - No evidence of exacerbation - c/w inhaled therapy as ordered HTN - BP well controlled - c/w Spironolactone, Irbesartan and Atenolol IDDM2 - c/w ISS and Levemir Anxiety - c/w Duloxetine and Bupropion Chronic Back & Neck pain - s/p - Currently not on any pain medication GERD - c/w Famotidine DVT prophylaxis - c/w TEDs/Sequentials DISCHARGE MEDICATIONS: Please see below. ALLERGIES: Please see below. PHYSICAL EXAMINATION ON DISCHARGE: Vitals (See below) General: Lying in bed, no acute distress, comfortable, AAOx3 HEENT: NC, AT CVS: RRR, +S1S2 Lungs: Fair air entry b/l, auscultation is without any wheezing, rales or rhonchi Abdomen: Soft, ND, NT Extremities: Left lower leg with swelling (appears chronic), - Calf tenderness Skin: Without rashes noted LABORATORY DATA: Please see below. ACTIVITY: [As tolerated]. DISCHARGE PLAN: Follow up with Dr. Linsey Kerr within 7 days and GI in [place] within 1- 2 weeks. Remain compliant with treatment plan and medications Return to the ER if you experience any problems DISPOSITION: Home, Self-Care. DISCHARGE CONDITION: [Stable]. TIME SPENT ON DISCHARGE: Greater than [35] minutes. Vital Signs/I&Os Vital Signs Date Time Temp Pulse Resp B/P (MAP) Pulse Ox O2 Delivery O2 Flow Rate FiO2 12/06/18 09:00 80 16 128/58 (81) 95 12/06/18 06:00 96.8 12/04/18 18:31 Room Air I&O- Last 24 Hours up to 6 AM 12/06/18 06:00 Intake Total 1735 ml Output Total 3180 ml Balance -1445 ml Laboratory Data Labs 24H Laboratory Tests 2 12/05/18 11:51: Bedside Glucose (Misc Panel) 189H 12/05/18 16:47: Bedside Glucose (Misc Panel) 187H 12/05/18 19:59: Bedside Glucose (Misc Panel) 255H 12/06/18 05:16: Immature Granulocyte % (Auto) 0.2, White Blood Count 4.9, Red Blood Count 3.61L, Hemoglobin 11.6L, Hematocrit 33.5L, Mean Corpuscular Volume 92.8, Mean Corpuscular Hemoglobin 32.1, Mean Corpuscular Hemoglobin Concent 34.6, Red Cell Distribution Width 14.6H, Platelet Count 107L, Neutrophils (%) (Auto) 51.4, Lymphocytes (%) (Auto) 29.6, Monocytes (%) (Auto) 9.5H, Eosinophils (%) (Auto) 8.5H, Basophils (%) (Auto) 0.8, Neutrophils # (Auto) 2.5, Lymphocytes # (Auto) 1.5, Monocytes # (Auto) 0.5, Eosinophils # (Auto) 0.4, Basophils # (Auto) 0.0, Nucleated Red Blood Cells % (auto) 0.0, Anion Gap 7L, Glomerular Filtration Rate > 60.0, Blood Urea Nitrogen 10, Creatinine 0.56, Sodium Level 147H, Potassium Level 3.2L, Chloride Level 115H, Carbon Dioxide Level 25, Calcium Level 8.6L, Magnesium Level 1.6L 12/06/18 06:12: Bedside Glucose (Misc Panel) 165H CBC/BMP Laboratory Tests 12/06/18 05:16 Red Blood Count 3.61 L, Mean Corpuscular Volume 92.8, Mean Corpuscular Hemoglobin 32.1, Mean Corpuscular Hemoglobin Concent 34.6, Red Cell Distribution Width 14.6 H, Neutrophils (%) (Auto) 51.4, Lymphocytes (%) (Auto) 29.6, Monocytes (%) (Auto) 9.5 H, Eosinophils (%) (Auto) 8.5 H, Basophils (%) (Auto) 0.8, Neutrophils # (Auto) 2.5, Lymphocytes # (Auto) 1.5, Monocytes # (Auto) 0.5, Eosinophils # (Auto) 0.4, Basophils # (Auto) 0.0, Calcium Level 8.6 L FSBS Laboratory Tests Test 12/05/18 11:51 12/05/18 16:47 12/05/18 19:59 12/06/18 06:12 Range/Units Bedside Glucose (Misc Panel) 189 187 255 165 80-115 MG/DL Discharge Medications Scheduled Anastrozole (Anastrozole) 1 Mg Tablet, 1 MG PO DAILY, (Reported) Aspirin (Aspirin EC) 81 Mg Tabec, 81 MG PO QPM, (Reported) Atenolol (Atenolol) 25 Mg Tab, 25 MG PO DAILY, (Reported) Budesonide/Formoterol (Symbicort 160-4.5 Mcg Inhaler) 6 Gm Hfa.aer.ad, 2 PUFF INH BID, (Reported) Bupropion HCl (Bupropion Xl) 300 Mg Tab.er.24h, 300 MG PO DAILY, (Reported) Calcium Carbonate/Vitamin D3 (Caltrate 600 + D Soft Chew Tab) 1 Each Tab.chew, 2 CHW PO QPM, (Reported) Cetirizine HCl (Cetirizine HCl) 10 Mg Tab, 10 MG PO DAILY, (Reported) Cyanocobalamin (Vitamin B-12) (Vitamin B-12) 500 Mcg Tablet, 500 MCG PO DAILY, (Reported) UNSURE OF DOSE; WILL ASK TO VERIFY AT HOME Duloxetine Hcl (Duloxetine HCl) 60 Mg Cap, 60 MG PO DAILY, (Reported) Irbesartan (Irbesartan) 300 Mg Tab, 150 MG PO DAILY, (Reported) PT PRESCRIBED VALSARTAN 160MG DAILY, BUT IS USING UP HER IRBESARTAN 150MG Magnesium Oxide (Magnesium Oxide) 500 Mg Tablet, 500 MG PO QPM, (Reported) Metformin HCl (Metformin HCl ER) 500 Mg Tab, 1,000 MG PO BID, (Reported) Montelukast Sodium (Montelukast Sodium) 10 Mg Tab, 10 MG PO QPM, (Reported) Multivitamins (Thera M Plus Tablet) 1 Each Tablet, 2 TAB PO DAILY, (Reported) Oxybutynin Chloride (Oxybutynin Chloride ER) 5 Mg Tab.er.24, 5 MG PO QPM, (Reported) Ranitidine HCl (Ranitidine HCl) 150 Mg Tablet, 150 MG PO DAILY, (Reported) Rifaximin (Xifaxan) 550 Mg Tablet, 550 MG PO BID, (Reported) Spironolactone (Spironolactone) 25 Mg Tablet, 25 MG PO DAILY, (Reported) Scheduled PRN Acetaminophen (Acetaminophen) 500 Mg Tab, 1,000 MG PO Q6H PRN for PAIN, (Reported) Albuterol Sulfate (Proair Hfa) 8.5 Gm Hfa.aer.ad, 2 PUFF INH Q4H PRN for SHORTNESS OF BREATH, (Reported) Cyclobenzaprine HCl (Cyclobenzaprine HCl) 10 Mg Tab, 10 MG PO QHS PRN for MUSCLE SPASMS, (Reported) Lactulose (Lactulose) 10 Gm/15 Ml Solution, 30 ML PO Q6H PRN for CONSTIPATION 15-30ML PO Q6H; titrate to 2-3 bowel movements daily - as discussed Triamcinolone Acet (Triamcinolone Acetonide 0.1% Crm) 80 Gm Cream..g., 1 APLCT TOP DAILY PRN for RASH, (Reported) APPLY TO SPOTS ON L HAND AND R FOOT Allergies Coded Allergies: ENVIROMENTAL (Verified Allergy, Unknown, 11/30/06) No Known Drug Allergies (Verified Allergy, Unknown, 12/04/18) REJI JOHNSON MD Dec 06, 2018 11:05
[2018-12-06] MEDS ORDERED: LACTULOSE 20 GM/30 ML SYRUP UD PO SCH (12:00)
== END 2018-12-06 10:47 | disposition home or self-care (01) | DRG 279 ==
LOC: M ED 18:30 → M ED INP 22:22 → M MSPAV 23:07
PROVIDERS: ADMIT Internal Medicine Nephrology; ATTEND Internal Medicine
DX: K72.00 Acute and subacute hepatic failure without coma (principal); D69.6 Thrombocytopenia, unspecified; K76.6 Portal hypertension; K75.81 Nonalcoholic steatohepatitis (NASH); K74.60 Unspecified cirrhosis of liver; G47.33 Obstructive sleep apnea (adult) (pediatric); F41.9 Anxiety disorder, unspecified; K59.00 Constipation, unspecified; J45.909 Unspecified asthma, uncomplicated; E55.9 Vitamin D deficiency, unspecified; E11.9 Type 2 diabetes mellitus without complications; I10 Essential (primary) hypertension; M54.5 Low back pain; M54.2 Cervicalgia; Z79.82 Long term (current) use of aspirin; Z79.84 Long term (current) use of oral hypoglycemic drugs; Z79.899 Other long term (current) drug therapy; Z85.3 Personal history of malignant neoplasm of breast; Z98.1 Arthrodesis status; Z90.49 Acquired absence of other specified parts of digestive tract; Z98.84 Bariatric surgery status

== ENCOUNTER → 2018-12-17 | Outpatient (CLI) | payer OTHER ==
[~2018-12-17] MED LIST changes: +BUPR300T34 PO; +CALTCHW4 PO; +MAGN500T12 PO; +OXYB5TAB; +OXYB5TAB PO; +PANT20TA2; +PROAAER10 INH; +RANI150T14 PO; +TRIA1CR80 TOP; +VITA500T40 PO; +VITMTA PO; +XIFA550T PO
[2018-12-17 08:33] LABS: HEMATOCRIT 36.3 % (36.0-47.0); HEMOGLOBIN 12.7 g/dl (12.0-15.5); MEAN CORPUSCULAR HEMOGLOBIN 32.4 pg (27.0-33.0); MEAN CORPUSCULAR VOLUME 92.6 fl (80.0-96.0); PLATELET COUNT, AUTOMATED 131 10^3/uL (150-450); RED BLOOD COUNT 3.92 10^6/uL (4.00-5.40); WHITE BLOOD COUNT 5.2 10^3/uL (4.0-10.0)
[2018-12-17 08:51] LABS: ALBUMIN 3.4 GM/DL (3.2-5.2); BILIRUBIN,DIRECT 0.3 MG/DL (0.0-0.2); BILIRUBIN,TOTAL 0.9 MG/DL (0.2-1.0); TOTAL PROTEIN 6.9 GM/DL (6.4-8.2)
--- NOTE | 2018-12-17 09:30 | REP ---
RIGHT UPPER QUADRANT ULTRASOUND: Real-time sonographic evaluation of the right upper quadrant performed. The gallbladder has been previously removed. There is no intrahepatic or extrahepatic biliary dilatation, common bile duct measuring 6 mm. Liver is enlarged measuring 22.3 cm in length in the mid clavicular line. There is diffuse heterogeneous echotexture of the liver suggesting cirrhotic changes. Main portable vein is mildly dilated at 17 mm suggesting portal hypertension. No gross liver or pancreatic mass is seen. Pancreatic tail is not well seen due to overlying bowel gas. Right kidney demonstrates no hydronephrosis with normal size 14.6 cm in length. There appears to be a 1 cm infrarenal calculus in the lower pole and an 8 mm calculus in the mid aspect. No ascites is seen. IMPRESSION: Status post cholecystectomy without biliary dilatation. Liver has an appearance compatible with cirrhosis with hepatomegaly, 22.3 cm in length. Mild dilatation of the main portal vein suggests portal hypertension. No gross liver mass. Two right renal calculi noted without hydronephrosis. Electronically Signed by Donnell Leggett MD 12/20/2018 01:29 P
== END ==
LOC: M RAD 07:18
PROVIDERS: ATTEND Physician Assistant
DX: K74.60 Unspecified cirrhosis of liver (principal); N20.0 Calculus of kidney; Z90.49 Acquired absence of other specified parts of digestive tract

== ENCOUNTER 2019-01-16 13:59 | Emergency (ER) | payer OTHER ==
[~2019-01-16] VITALS: Ht 177.8 cm; Wt 100.0 kg
--- NOTE | 2019-01-16 14:44 | REP ---
Clinical: Abdominal pain . Comparison: 07/18/2018 . Technique: PA and lateral. Findings: The mediastinum and cardiac silhouette are normal. The lung childs demonstrate chronic-appearing changes without acute consolidation, effusion, or pneumothorax. The skeletal structures are intact and normal. Impression: 1. No acute cardiopulmonary process. Electronically Signed by Isak Toussaint MD 01/16/2019 02:35 P
[2019-01-16 15:10] LABS: BASO # 0.1 10^3/uL (0.0-0.2); BASO % 1.2 % (0.0-1.0); EOS # 0.5 10^3/uL (0.0-0.50); HEMATOCRIT 36.1 % (36.0-47.0); HEMOGLOBIN 12.8 g/dl (12.0-15.5); LYMPH # 1.6 10^3/uL (1.5-4.5); LYMPH % 31.8 % (24.0-44.0); MEAN CORPUSCULAR HEMOGLOBIN 34.1 pg (27.0-33.0); MEAN CORPUSCULAR HGB CONC 35.5 g/dl (32.0-36.5); MEAN CORPUSCULAR VOLUME 96.3 fl (80.0-96.0); MONO # 0.5 10^3/uL (0.0-0.8); MONO % 9.7 % (0.0-5.0); NEUTROPHILS # 2.5 10^3/uL (1.8-7.7); NEUTROPHILS % 48.1 % (36.0-66.0); PLATELET COUNT, AUTOMATED 155 10^3/uL (150-450); RED BLOOD COUNT 3.75 10^6/uL (4.00-5.40); WHITE BLOOD COUNT 5.1 10^3/uL (4.0-10.0)
[2019-01-16 15:19] LABS: INR 1.1; PROTHROMBIN TIME 14.3 SECONDS (12.1-14.4)
[2019-01-16] MEDS ORDERED: LACT10SO3 PO ×2 (15:22)
[2019-01-16] MEDS ORDERED: LOSA100T50 PO (15:24)
[2019-01-16 15:43] LABS: ALBUMIN 3.4 GM/DL (3.2-5.2); ALT/SGPT 35 U/L (12-78); AMYLASE 56 U/L (25-115); BILIRUBIN,DIRECT 0.2 MG/DL (0.0-0.2); BILIRUBIN,TOTAL 0.6 MG/DL (0.2-1.0); BLOOD UREA NITROGEN 11 MG/DL (7-18); CARBON DIOXIDE LEVEL 26 MEQ/L (21-32); CHLORIDE LEVEL 111 MEQ/L (98-107); CREATININE FOR GFR 0.71 MG/DL (0.55-1.30); GLOMERULAR FILTRATION RATE > 60.0 (>45); GLUCOSE, FASTING 204 MG/DL (70-100); LIPASE 972 U/L (73-393); MAGNESIUM LEVEL 1.5 MG/DL (1.8-2.4); POTASSIUM SERUM 3.8 MEQ/L (3.5-5.1); SODIUM LEVEL 144 MEQ/L (136-145)
[2019-01-16] MEDS ORDERED: LACTULOSE 20 GM/30 ML SYRUP UD PO ONE (15:45)
[2019-01-16] MEDS ORDERED: cefTRIAXone SOD 1 GM in D5W MINI-BAG PLUS 50 ML IV ONE (15:45)
[2019-01-16] MEDS ORDERED: ISOVUE-370 76% 100ML VIAL (Q9967) As Ordered ONE (16:29)
--- NOTE | 2019-01-16 16:59 | REP ---
Clinical: Abdominal pain with elevated lipase levels. Technique: Axial contrast enhanced images from the lung bases to the pubic symphysis using 100 ml Isovue 370 intravenous contrast material with coronal and sagittal re-formations. Comparison: 07/18/2018. Findings: Lung bases are clear. Visualized heart and pericardium normal. Liver demonstrates cirrhotic changes without focal hepatic lesion identified. Associated splenomegaly and portal venous hypertension noted. Evidence of prior cholecystectomy noted. Pancreas is unremarkable. Bilateral adrenal glands and kidneys are normal. Incidental nonobstructing right renal calculi up to 7 mm noted. Evaluation of the enteric system demonstrates gastric bypass surgery. No obstruction or acute inflammatory process identified. Pelvis demonstrates normal bladder and age-appropriate uterus/adnexa. No ascites. No free air. No obvious adenopathy. Abdominal aorta without aneurysm. Musculoskeletal structures demonstrate degenerative changes without focal osseous abnormality. Impression: 1. Cirrhosis and portal venous hypertension with splenomegaly. 2. Nonobstructing right renal calculi up to 7 mm. 3. No acute abdominopelvic pathology. Specifically, no ascites, focal inflammatory stranding, or adenopathy. 4. Pancreas appears grossly normal and without obvious evidence for acute pancreatitis by CT. Electronically Signed by Isak Toussaint MD 01/16/2019 04:51 P
[2019-01-16] MEDS ORDERED: KEFL500C17 PO ×2 (17:34→17:53)
[2019-01-16 17:41] VITALS: BP 126/58
--- NOTE | 2019-01-16 19:46 | ECGEPIP ---
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
== END 2019-01-16 17:59 | disposition home or self-care (01) ==
LOC: M ED 13:59
DX: N30.00 Acute cystitis without hematuria (principal); R18.8 Other ascites; R16.1 Splenomegaly, not elsewhere classified; N20.0 Calculus of kidney; I50.9 Heart failure, unspecified; I10 Essential (primary) hypertension; G47.30 Sleep apnea, unspecified; K76.0 Fatty (change of) liver, not elsewhere classified; K76.6 Portal hypertension; G93.40 Encephalopathy, unspecified; Z98.84 Bariatric surgery status; Z87.891 Personal history of nicotine dependence; Z82.49 Family history of ischemic heart disease and other diseases of the circulatory system; Z83.3 Family history of diabetes mellitus; Z80.0 Family history of malignant neoplasm of digestive organs; Z80.1 Family history of malignant neoplasm of trachea, bronchus and lung
CPT/HCPCS: 71046; 74177; 80048; 80076; 81001; 82140; 82150; 83605; 83690; 83735; 85025; 85610; 85730; 87086; 93005; 93041; 96365; 99285; J0696; Q9967

== ENCOUNTER → 2019-02-04 | Outpatient (REF) | payer OTHER ==
[~2019-02-04] MED LIST changes: +KEFL500C17 PO; +LACT10SO3 PO; +LOSA100T50 PO
[2019-02-09 14:47] LABS: HPV HYBRID CAPTURE II Negative (Negative)
== END ==
LOC: M LAB REF 17:23
PROVIDERS: ATTEND Specialist
DX: Z12.4 Encounter for screening for malignant neoplasm of cervix (principal); N88.8 Other specified noninflammatory disorders of cervix uteri

== ENCOUNTER → 2019-02-07 | Outpatient (CLI) | payer OTHER ==
--- NOTE | 2019-02-07 09:36 | REP ---
MRI lumbar spine without contrast: History: Lumbar radiculopathy. History of breast carcinoma. Spondylosis with radiculopathy. Hip and right knee pain in addition to low back pain. Comparison CT lumbar spine study November 12, 2012. Technique: Sagittal and axial T1 and T2-weighted scans are acquired in the usual fashion with and without fat saturation. Sequences include spin echo, turbo spin-echo, and STIR imaging sequences. MRI findings: There is straightening of the normal lumbar lordosis. There is advanced diffuse degenerative disc disease throughout the lumbar spine. There are reactive marrow changes associated with degenerative disc disease at multiple levels. There is a degenerative grade 1 7 mm L4-5 spondylolisthesis. Alignment is otherwise intact. The tip of the conus medullaris is normal in position and appearance at T12-L1. No extra vertebral abnormality is appreciated. Axial and sagittal images taken at the L1-2 intervertebral disc level demonstrate a large broad-based calcified disc protrusion centrally which compresses the thecal sac. There is mild central canal stenosis as a result. In the midline, the AP dimension of the thecal sac at this level is 9 mm. There is mild facet hypertrophy. Foraminal disc bulging produces mild bilateral neural foraminal narrowing. L2-3, there is also a broad-based central disc protrusion. On CT images from the 1013 this also is seen to be a peripherally calcified. There is mild to moderate central canal stenosis as a result. Facet hypertrophy and ligamentum flavum hypertrophy contribute. The AP dimension of the thecal sac and L2-3 in the midline is 8 mm. Neural foramina appear adequate. At L3-L4, there is a broad-based central disc protrusion effacing the ventral subarachnoid space and producing mild central canal stenosis. Midline AP dimension of the thecal sac at the L3-4 level there is a mm. There is minimal left and moderate right-sided neural foraminal narrowing at L3-4. At L4-5, there is severe central canal stenosis due to diffuse disc bulging, advanced facet and ligamentum flavum hypertrophy, and the spondylolisthesis. The AP thecal sac dimension at L4-5 is 6 mm. CSF signal intensity is effaced from the thecal sac at the L4-5 level. There is bilateral neural foraminal narrowing, right more so than left. At L5-S1, there is a broad-based moderate disc protrusion effacing the ventral subarachnoid space. There is bilateral osteoarthritic facet hypertrophy. No central canal stenosis is noted. There is neural foraminal narrowing on the left. Impression: Advanced degenerative spondylosis with multilevel broad-based but fairly large chronic disc protrusions. Multilevel neural foraminal narrowing and central canal stenosis. The central canal stenosis is most pronounced at L4-5 where there is a degenerative grade 1 spondylolisthesis. Electronically Signed by Cr Jett MD 02/07/2019 10:27 A
== END ==
LOC: M RAD 07:41
PROVIDERS: ATTEND Physician Assistant
DX: M47.26 Other spondylosis with radiculopathy, lumbar region (principal); Z85.3 Personal history of malignant neoplasm of breast; M79.661 Pain in right lower leg; M25.559 Pain in unspecified hip

== ENCOUNTER → 2019-02-15 | Outpatient (REF) | payer OTHER ==
[2019-02-15 16:21] LABS: EOS # 0.5 10^3/uL (0.0-0.50); HEMATOCRIT 35.6 % (36.0-47.0); HEMOGLOBIN 12.6 g/dl (12.0-15.5); LYMPH # 1.3 10^3/uL (1.5-4.5); LYMPH % 31.4 % (24.0-44.0); MEAN CORPUSCULAR HEMOGLOBIN 34.1 pg (27.0-33.0); MEAN CORPUSCULAR HGB CONC 35.4 g/dl (32.0-36.5); MEAN CORPUSCULAR VOLUME 96.5 fl (80.0-96.0); MONO # 0.4 10^3/uL (0.0-0.8); MONO % 8.3 % (0.0-5.0); NEUTROPHILS % 48.1 % (36.0-66.0); PLATELET COUNT, AUTOMATED 122 10^3/uL (150-450); RED BLOOD COUNT 3.69 10^6/uL (4.00-5.40); WHITE BLOOD COUNT 4.2 10^3/uL (4.0-10.0)
[2019-02-15 16:26] LABS: ALBUMIN 3.3 GM/DL (3.2-5.2); ALT/SGPT 47 U/L (12-78); BILIRUBIN,TOTAL 0.7 MG/DL (0.2-1.0); BLOOD UREA NITROGEN 12 MG/DL (7-18); CALCIUM LEVEL 8.9 MG/DL (8.8-10.2); CARBON DIOXIDE LEVEL 27 MEQ/L (21-32); CHLORIDE LEVEL 113 MEQ/L (98-107); CREATININE FOR GFR 0.61 MG/DL (0.55-1.30); FERRITIN 49 NG/ML (8-252); GLOMERULAR FILTRATION RATE > 60.0 (>45); GLUCOSE, FASTING 123 MG/DL (70-100); IRON (FE) 131 UG/DL (50-170); MAGNESIUM LEVEL 1.7 MG/DL (1.8-2.4); PERCENT SATURATION 48.3 % (13.2-45.0); PHOSPHORUS LEVEL 3.8 MG/DL (2.5-4.9); POTASSIUM SERUM 3.6 MEQ/L (3.5-5.1); SODIUM LEVEL 145 MEQ/L (136-145); TOTAL IRON BINDING CAPACITY 271 UG/DL (250-450); TOTAL PROTEIN 7.1 GM/DL (6.4-8.2)
[2019-02-15 16:34] LABS: TOTAL 25(OH) VITAMIN D 38.2 NG/ML (30.0-100.0); VITAMIN B12 LEVEL 1261 PG/ML (247-911)
[2019-02-15 16:41] LABS: HEMATOCRIT 35.6 % (36.0-47.0)
[2019-02-15 19:16] LABS: HEMOGLOBIN A1c 8.4 %
== END ==
LOC: M LABDRAW1 15:34
PROVIDERS: ATTEND Physician Assistant Surgical
DX: K91.2 Postsurgical malabsorption, not elsewhere classified (principal); Z98.84 Bariatric surgery status; E55.9 Vitamin D deficiency, unspecified

== ENCOUNTER → 2019-02-16 | Outpatient (CLI) | payer OTHER | LOC: M LAB 12:45 | PROVIDERS: ATTEND Specialist | DX: Z13.79 Encounter for other screening for genetic and chromosomal anomalies (principal) ==

== ENCOUNTER → 2019-02-16 | Outpatient (CLI) | payer OTHER ==
--- NOTE | 2019-02-16 13:40 | REPMRS ---
Patient History The patient states she had a clinical breast exam in December 2018. Family history of colorectal cancer at age 50 or over in father. Malignant radio exam breast specimen of the left breast, May 09, 2014. Malignant stereotatic loc for ea lesion of the left breast, May 09, 2014. Patient has had a 110 pound weight loss due to gastric bypass. Digital Mammo Screening Bilat: February 16, 2019 - Exam #: [id number] Bilateral CC and MLO view(s) were taken. Technologist: Stephanie Espinoza, Technologist Prior study comparison: February 03, 2018, bilateral digital mammo screening bilat performed at [facility]. December 24, 2016, bilateral digital mammo screening bilat performed at [facility]. December 04, 2015, digital mammo diagnostic bilateral performed at [facility]. FINDINGS: There are scattered fibroglandular densities. There are stable post treatment changes in the left breast. There has been no change in the appearance of the mammogram from the prior studies. There is a mild amount of scattered fibroglandular density which is fairly symmetric. There is no interval development of dominant mass, architectural distortion, or grouped microcalcification suggestive of malignancy. 3-D tomosynthesis shows no additional findings. Assessment: BI-RADS/ACR category 2 mammogram. Benign Findings. Recommendation Routine screening mammogram of both breasts in 1 year (for women over age 40). This mammogram was interpreted with the aid of an FDA-approved computer-aided dectection system. Electronically Signed By: Casimiro Jett MD 02/16/19 [id number]
== END ==
LOC: M RAD 11:58
PROVIDERS: ATTEND Specialist
DX: Z12.31 Encounter for screening mammogram for malignant neoplasm of breast (principal); Z80.0 Family history of malignant neoplasm of digestive organs; Z86.018 Personal history of other benign neoplasm

== ENCOUNTER → 2019-03-18 | Outpatient (CLI) | payer OTHER ==
[~2019-03-18] MED LIST changes: -DULO1CAP3 PO; +DULO1CAP6 PO
[2019-03-18 15:09] LABS: BASO % 0.7 % (0.0-1.0); EOS # 0.4 10^3/uL (0.0-0.50); EOS % 7.1 % (0.0-3.0); HEMATOCRIT 37.6 % (36.0-47.0); HEMOGLOBIN 13.1 g/dl (12.0-15.5); LYMPH # 1.5 10^3/uL (1.5-4.5); LYMPH % 25.3 % (24.0-44.0); MEAN CORPUSCULAR HEMOGLOBIN 33.6 pg (27.0-33.0); MEAN CORPUSCULAR HGB CONC 34.8 g/dl (32.0-36.5); MEAN CORPUSCULAR VOLUME 96.4 fl (80.0-96.0); MONO # 0.8 10^3/uL (0.0-0.8); MONO % 13.1 % (0.0-5.0); NEUTROPHILS # 3.1 10^3/uL (1.8-7.7); NEUTROPHILS % 53.6 % (36.0-66.0); PLATELET COUNT, AUTOMATED 152 10^3/uL (150-450); WHITE BLOOD COUNT 5.8 10^3/uL (4.0-10.0)
[2019-03-18 15:20] LABS: INR 1.09; PROTHROMBIN TIME 13.8 SECONDS (11.8-14.0)
[2019-03-18 15:42] LABS: ALBUMIN 3.4 GM/DL (3.2-5.2); ALT/SGPT 34 U/L (12-78); BILIRUBIN,TOTAL 1.2 MG/DL (0.2-1.0); BLOOD UREA NITROGEN 7 MG/DL (7-18); CARBON DIOXIDE LEVEL 31 MEQ/L (21-32); CHLORIDE LEVEL 109 MEQ/L (98-107); CREATININE FOR GFR 0.69 MG/DL (0.55-1.30); GLOMERULAR FILTRATION RATE > 60.0 (>45); GLUCOSE, FASTING 154 MG/DL (70-100); POTASSIUM SERUM 3.7 MEQ/L (3.5-5.1); SODIUM LEVEL 145 MEQ/L (136-145); TOTAL PROTEIN 7.4 GM/DL (6.4-8.2)
--- NOTE | 2019-03-18 16:06 | REP ---
Right shoulder three views: Comparison is 11/12/2012. The acromioclavicular joint is markedly widened up to 2 cm, possibly from distal clavicle resection. This is unchanged. There is no elevation of the distal clavicle. The glenohumeral joint is unremarkable. There is calcification medial to the humeral proximal shaft as an interval change. Impression: Probable resection of the distal clavicle. Calcification medial to the proximal humeral shaft. Otherwise, negative right shoulder. Electronically Signed by Donnell Pinzon MD 03/18/2019 03:57 P
== END ==
LOC: M LAB 14:48
PROVIDERS: ATTEND Physician Assistant
DX: M25.711 Osteophyte, right shoulder (principal); K72.90 Hepatic failure, unspecified without coma

== ENCOUNTER → 2019-04-26 | Outpatient (CLI) | payer OTHER ==
[~2019-04-26] MED LIST changes: +METF-791 PO; -METF500T4 PO; -OXYB5TAB; -OXYB5TAB PO; +OXYB5TAB2; +OXYB5TAB2 PO
== END ==
LOC: M LAB 10:00
PROVIDERS: ATTEND Internal Medicine Gastroenterology
DX: K74.60 Unspecified cirrhosis of liver (principal); G93.40 Encephalopathy, unspecified

== ENCOUNTER → 2019-05-10 | Outpatient (CLI) | payer OTHER ==
[~2019-05-10] MED LIST changes: -BUPR300T34 PO; +BUPR300T92 PO; +CLIN1LOT TOP; +DICY1CAP8 PO; -FELO10TA PO; +FELO10TA28 PO; +FLUT1BLS5 IH; +FLUT1INH2 INH; +GABA-845 PO; +GLIP10TA PO; +GLIP5TAB8 PO; +KETO2SHA9 TOP; +Lactulose Syrup PO; +MED REC COMMENT; +ONDA4TAB6 PO; +OXYB-54; +OXYB-54 PO; -OXYB5TAB2; -OXYB5TAB2 PO; +PANT40TA3 PO; +POTA1TAB14 PO; +PROP60CA PO; +VOLT1GEL15 TOP
--- NOTE | 2019-05-11 05:03 | REP ---
Clinical: Cirrhosis. Technique: Real time bates scale ultrasound examination using curved array transducer. Findings: The liver is heterogeneous and coarsened in echotexture without significant focal hepatic lesion identified. Small parenchymal calcification within the right lobe is nonspecific and likely chronic. The pancreas is incompletely evaluated due to interposed bowel gas but visualized portions appear normal. The gallbladder is surgically absent. No biliary ductal dilatation is appreciated and the common bile duct measures 5.3 mm diameter. The right kidney is normal in reniform shape without hydronephrosis and measures 30.3 x 6.1 x 6.5 cm with a 1.2 cm lower pole nonobstructing calculus. No ascites. Impression: 1. Hepatocellular disease consistent with cirrhosis. No focal hepatic lesion identified. 2. Right nonobstructing renal calculus. Electronically Signed by Isak Toussaint MD 05/11/2019 04:54 A
== END ==
LOC: M RAD 08:28
PROVIDERS: ATTEND Physician Assistant
DX: K74.69 Other cirrhosis of liver (principal)

== ENCOUNTER → 2019-05-10 | Outpatient (CLI) | payer OTHER ==
--- NOTE | 2019-05-10 15:24 | REP ---
WHOLE BODY BONE SCAN: Following the intravenous administration of 22 millicuries technetium 99m MDP, the patient's whole body was imaged in the anterior and posterior projections with additional oblique and lateral views obtained. Scattered foci of increased uptake involving the entire spine are most consistent with arthritic changes when correlating with prior CT exams. Symmetrical increased uptake in the maxillary sinus regions bilaterally likely indicates sinusitis. There appears to be mild arthritic uptake in both shoulders. Symmetrically. There also appears to be arthritic uptake at the sternoclavicular joints right greater than left. There is arthritic uptake in the knees and feet. Renal and bladder activity are seen. IMPRESSION: Pattern of uptake most consistent with arthritic uptake involving the spine, shoulders, sternoclavicular joints, knees, and feet. Uptake in the maxillary sinus region bilaterally is most compatible with sinusitis. There is no compelling scintigraphic evidence of osseous metastases. Electronically Signed by Donnell Leggett MD 05/11/2019 10:26 A
== END ==
LOC: M RAD 08:25
PROVIDERS: ATTEND Physical Medicine & Rehabilitation
DX: M51.36 Other intervertebral disc degeneration, lumbar region (principal)
CPT/HCPCS: 78306; A9503

== ENCOUNTER → 2019-05-12 | Outpatient (CLI) | payer OTHER ==
[~2019-05-12] MED LIST changes: +BUPR300T34 PO; -BUPR300T92 PO; -CLIN1LOT TOP; -DICY1CAP8 PO; +FELO10TA PO; -FELO10TA28 PO; -FLUT1BLS5 IH; -FLUT1INH2 INH; -GABA-845 PO; -GLIP10TA PO; -GLIP5TAB8 PO; -KETO2SHA9 TOP; -Lactulose Syrup PO; -MED REC COMMENT; -ONDA4TAB6 PO; -OXYB-54; -OXYB-54 PO; +OXYB5TAB2; +OXYB5TAB2 PO; -PANT40TA3 PO; -POTA1TAB14 PO; -PROP60CA PO; -VOLT1GEL15 TOP
[2019-05-12 14:52] LABS: BASO # 0.1 10^3/uL (0.0-0.2); EOS # 0.5 10^3/uL (0.0-0.5); EOS % 7.9 % (0.0-3.0); HEMATOCRIT 37.5 % (36.0-47.0); HEMOGLOBIN 13.5 g/dl (12.0-15.5); LYMPH # 1.7 10^3/uL (1.5-5.0); LYMPH % 27.8 % (24.0-44.0); MEAN CORPUSCULAR VOLUME 94.5 fl (80.0-96.0); MONO # 0.6 10^3/uL (0.0-0.8); NEUTROPHILS # 3.2 10^3/uL (1.5-8.5); NEUTROPHILS % 53.1 % (36.0-66.0); PLATELET COUNT, AUTOMATED 164 10^3/uL (150-450); RED BLOOD COUNT 3.97 10^6/uL (4.00-5.40)
[2019-05-12 15:05] LABS: ALBUMIN 3.4 GM/DL (3.2-5.2); ALT/SGPT 36 U/L (12-78); BLOOD UREA NITROGEN 10 MG/DL (7-18); C REACTIVE PROTEIN QUANTITATIV < 0.30 MG/DL (0.00-0.30); CALCIUM LEVEL 8.8 MG/DL (8.8-10.2); CARBON DIOXIDE LEVEL 24 MEQ/L (21-32); CHLORIDE LEVEL 112 MEQ/L (98-107); GLOMERULAR FILTRATION RATE > 60.0 (>45); GLUCOSE, FASTING 178 MG/DL (70-100); POTASSIUM SERUM 3.3 MEQ/L (3.5-5.1); SODIUM LEVEL 144 MEQ/L (136-145); TOTAL PROTEIN 7.4 GM/DL (6.4-8.2)
[2019-05-12 15:52] LABS: ERYTHROCYTE SEDIMENTATION RATE 26 mm/hr (0-30)
[2019-05-14 00:06] LABS: Lyme Disease IgG/IgM Antibodie <0.91 ISR (0.00-0.90); Lyme Disease IgM Ab Quantitati <0.80 index (0.00-0.79)
== END ==
LOC: M LAB 13:40
PROVIDERS: ATTEND Physician Assistant
DX: R53.81 Other malaise (principal)

== ENCOUNTER → 2019-05-12 | Outpatient (REF) | payer OTHER | LOC: M LAB REF 17:47 | PROVIDERS: ATTEND Physician Assistant | DX: R53.81 Other malaise (principal) ==

== ENCOUNTER → 2019-05-18 | Outpatient (REF) | payer OTHER ==
[2019-05-18 19:26] LABS: APPEARANCE, URINE CLOUDY (CLEAR); BACTERIA, URINE AUTO NEGATIVE (NEGATIVE); BILIRUBIN, URINE AUTO NEGATIVE (NEGATIVE); BLOOD, URINE BLOOD 3+ (NEGATIVE); CALCIUM OXALATE CRYSTALS LARGE; COLOR, URINE YELLOW (YELLOW); GLUCOSE, URINE (UA) AUTO NEGATIVE (NEGATIVE); KETONE, URINE AUTO NEGATIVE (NEGATIVE); LEUKOCYTE ESTERASE, URINE AUTO NEGATIVE (NEGATIVE); NITRITE, URINE AUTO NEGATIVE (NEGATIVE); PROTEIN, URINE AUTO 1+ mg/dL (NEGATIVE); RBC, URINE AUTO TNTC /HPF (0-3); SPECIFIC GRAVITY URINE AUTO 1.018 (1.002-1.035); SQUAMOUS EPITHELIAL CELL UR AU 1 /HPF (0-6); UROBILINOGEN, URINE AUTO 0.2 mg/dL (0.0-2.0); WBC, URINE AUTO 49 /HPF (0-3)
== END ==
LOC: M LAB REF 18:38
PROVIDERS: ATTEND Nurse Practitioner Women's Health
DX: R31.29 Other microscopic hematuria (principal)

== ENCOUNTER → 2019-05-18 | Outpatient (CLI) | payer OTHER ==
--- NOTE | 2019-05-19 01:38 | REP ---
Clinical: Dyspareunia. Technique: Two views of the abdominopelvic region. Findings: Moderate fecal stasis is suggested. Evidence of prior cholecystectomy. Phleboliths noted in the right mid abdomen and pelvis. Skeletal structures demonstrate age-related degenerative changes. Impression: Moderate fecal stasis. Electronically Signed by Isak Toussaint MD 05/19/2019 01:29 A
== END ==
LOC: M RAD 16:49
PROVIDERS: ATTEND Nurse Practitioner Women's Health
DX: N20.0 Calculus of kidney (principal); I87.8 Other specified disorders of veins

== ENCOUNTER → 2019-05-19 | Outpatient (CLI) | payer OTHER ==
--- NOTE | 2019-05-20 15:33 | DEXA ---
AP SPINE L1 - L4 1.718 4.2 5.6 LT FEMUR TOTAL 1.169 1.3 2.3 LT NECK 1.193 1.1 2.4 RT FEMUR TOTAL 1.103 0.8 1.8 RT NECK 1.044 0.0 1.4 TOTAL BODY TOTAL OTHER COMMENTS: Normal bone densitometry of the spine and hips. The density of the spine has increased 9.1% since the initial exam on 05/09/2015. The spine density has increased 1.5% since the most recent exam on 04/28/2017. The density of the left hip has decreased 8.0% since the initial exam on 05/09/2015. The density of the left hip has decreased 7.7% since the recent exam on 04/28/2017. The density of the right hip has decreased 5.9% since the initial exam on 05/09/2015. The density of the right hip has decreased 2.4% since the most recent exam on 04/28/2017. FOLLOW-UP: Recommendation for the next bone density exam: 5 years. CHETNA
== END ==
LOC: M WHC 08:55
PROVIDERS: ATTEND Family Medicine
DX: Z13.820 Encounter for screening for osteoporosis (principal)

== ENCOUNTER → 2019-05-23 | Outpatient (CLI) | payer OTHER ==
[2019-05-23 13:27] LABS: BASO % 0.9 % (0.0-1.0); EOS # 0.4 10^3/uL (0.0-0.5); EOS % 8.7 % (0.0-3.0); HEMATOCRIT 34.7 % (36.0-47.0); HEMOGLOBIN 12.2 g/dl (12.0-15.5); LYMPH # 1.5 10^3/uL (1.5-5.0); LYMPH % 35.4 % (24.0-44.0); MEAN CORPUSCULAR HEMOGLOBIN 33.5 pg (27.0-33.0); MEAN CORPUSCULAR HGB CONC 35.2 g/dl (32.0-36.5); MEAN CORPUSCULAR VOLUME 95.3 fl (80.0-96.0); MONO # 0.3 10^3/uL (0.0-0.8); MONO % 7.8 % (0.0-5.0); PLATELET COUNT, AUTOMATED 143 10^3/uL (150-450); RED BLOOD COUNT 3.64 10^6/uL (4.00-5.40); WHITE BLOOD COUNT 4.2 10^3/uL (4.0-10.0)
[2019-05-23 13:50] LABS: ALBUMIN 3.2 GM/DL (3.2-5.2); ALT/SGPT 31 U/L (12-78); BILIRUBIN,TOTAL 0.8 MG/DL (0.2-1.0); BLOOD UREA NITROGEN 8 MG/DL (7-18); CALCIUM LEVEL 8.9 MG/DL (8.8-10.2); CARBON DIOXIDE LEVEL 28 MEQ/L (21-32); CHLORIDE LEVEL 111 MEQ/L (98-107); CREATININE FOR GFR 0.63 MG/DL (0.55-1.30); GLOMERULAR FILTRATION RATE > 60.0 (>45); GLUCOSE, FASTING 147 MG/DL (70-100); POTASSIUM SERUM 3.7 MEQ/L (3.5-5.1); SODIUM LEVEL 145 MEQ/L (136-145); TOTAL PROTEIN 7.3 GM/DL (6.4-8.2)
== END ==
LOC: M LAB 11:46
PROVIDERS: ATTEND Family Medicine
DX: K72.90 Hepatic failure, unspecified without coma (principal)

== ENCOUNTER → 2019-05-26 | Outpatient (CLI) | payer OTHER ==
[~2019-05-26] MED LIST changes: +ISOVUE-370 76% 100ML VIAL (Q9967) As Ordered ONE
--- NOTE | 2019-05-26 16:23 | REP ---
CT of the abdomen and pelvis without and with IV contrast: After IV contrast, multiphase imaging is performed, CT urogram protocol: Comparison is 01/16/2019. The study is performed for gross hematuria. There are multiple right renal calculi, the largest measures up to 8 mm in diameter. There is a single left renal calculus measuring 3 mm. There are no ureteral calculi. There are no bladder calculi. There is no hydronephrosis. There is mild symmetric bilateral perinephric stranding, not unusual for patient age. No renal masses or cysts are identified. No bladder masses are identified. The visualized lung childs are unremarkable. The hepatic margin has a nodular appearance compatible with cirrhosis. This is unchanged. There are surgical clips in the gallbladder fossa. No hepatic masses are identified. The portal vein is dilated measuring up to 19 mm in diameter, the spleen is enlarged and there are splenic varices. These findings are compatible with portal hypertension and are unchanged. There are no pleural effusions. There is no ascites. There are surgical clips in the upper abdomen compatible with bariatric surgery, unchanged. The adrenals are unremarkable. The abdominal aorta is unremarkable. The bowel and mesentery are unremarkable. There are multiple tiny opacities throughout the colon as an interval change, likely ingested material. Pelvis: The uterus, adnexa and bladder are unremarkable. There is no pelvic adenopathy or ascites. There is degenerative disc disease throughout the lumbar spine. Impression: There are bilateral nonobstructive renal calculi as described. There is no hydronephrosis. There is mild bilateral symmetric perinephric stranding, not unusual for patient age. There are no ureteral or bladder calculi. There are no renal or bladder masses. There is cirrhosis, splenomegaly, splenic varices and portal hypertension, unchanged. There is no ascites. There are no hepatic masses. Bariatric surgery, unchanged. Electronically Signed by Donnell Pinzon MD 05/26/2019 04:14 P
== END ==
LOC: M RAD 14:08
PROVIDERS: ATTEND Nurse Practitioner Women's Health
DX: R31.0 Gross hematuria (principal); N20.0 Calculus of kidney; K74.60 Unspecified cirrhosis of liver; K76.6 Portal hypertension; R16.1 Splenomegaly, not elsewhere classified; D73.89 Other diseases of spleen
CPT/HCPCS: 74178; Q9967

== ENCOUNTER → 2019-06-10 | Outpatient (REF) | payer OTHER ==
[~2019-06-10] MED LIST changes: -ISOVUE-370 76% 100ML VIAL (Q9967) As Ordered ONE
[2019-06-10 19:32] LABS: APPEARANCE, URINE CLOUDY (CLEAR); BACTERIA, URINE AUTO NEGATIVE (NEGATIVE); BILIRUBIN, URINE AUTO NEGATIVE (NEGATIVE); BLOOD, URINE BLOOD 3+ (NEGATIVE); CALCIUM OXALATE CRYSTALS LARGE; COLOR, URINE AMBER (YELLOW); GLUCOSE, URINE (UA) AUTO 1+ mg/dL (NEGATIVE); KETONE, URINE AUTO NEGATIVE (NEGATIVE); LEUKOCYTE ESTERASE, URINE AUTO 1+ (NEGATIVE); MUCUS, URINE SMALL (NEGATIVE); NITRITE, URINE AUTO NEGATIVE (NEGATIVE); PROTEIN, URINE AUTO 2+ mg/dL (NEGATIVE); RBC, URINE AUTO TNTC /HPF (0-3); SQUAMOUS EPITHELIAL CELL UR AU 1 /HPF (0-6); WBC, URINE AUTO 34 /HPF (0-3)
== END ==
LOC: M SMT 17:03
PROVIDERS: ATTEND Urology
DX: R31.0 Gross hematuria (principal)

== ENCOUNTER → 2019-06-20 | Outpatient (CLI) | payer OTHER ==
[2019-06-20 17:45] LABS: INR 1.2; PROTHROMBIN TIME 14.9 SECONDS (11.8-14.0)
[2019-06-20 17:46] LABS: PARTIAL THROMBOPLASTIN TIME 37.3 SECONDS (25.0-38.4)
--- NOTE | 2019-06-20 17:46 | REP ---
Clinical: Preoperative assessment. Kidney stones . Comparison: 01/16/2019 . Technique: PA and lateral. Findings: The mediastinum and cardiac silhouette are normal. The lung childs are clear and without acute consolidation, effusion, or pneumothorax. The skeletal structures are intact and normal. Impression: 1. No acute cardiopulmonary process. Electronically Signed by Isak Toussaint MD 06/20/2019 05:38 P
== END ==
LOC: M LAB 16:39
PROVIDERS: ATTEND Urology
DX: Z01.818 Encounter for other preprocedural examination (principal); N20.0 Calculus of kidney

== ENCOUNTER → 2019-06-20 | Outpatient (CLI) | payer OTHER ==
[2019-06-20 16:35] LABS: BASO # 0.1 10^3/uL (0.0-0.2); EOS # 0.5 10^3/uL (0.0-0.5); EOS % 10.5 % (0.0-3.0); HEMOGLOBIN 12.8 g/dl (12.0-15.5); LYMPH # 1.6 10^3/uL (1.5-5.0); LYMPH % 31.8 % (24.0-44.0); MEAN CORPUSCULAR HEMOGLOBIN 33.2 pg (27.0-33.0); MEAN CORPUSCULAR HGB CONC 34.6 g/dl (32.0-36.5); MEAN CORPUSCULAR VOLUME 96.1 fl (80.0-96.0); MONO # 0.5 10^3/uL (0.0-0.8); MONO % 9.9 % (0.0-5.0); NEUTROPHILS # 2.3 10^3/uL (1.5-8.5); NEUTROPHILS % 46.6 % (36.0-66.0); PLATELET COUNT, AUTOMATED 130 10^3/uL (150-450); RED BLOOD COUNT 3.85 10^6/uL (4.00-5.40)
[2019-06-20 16:50] LABS: ALBUMIN 3.1 GM/DL (3.2-5.2); ALT/SGPT 37 U/L (12-78); BILIRUBIN,TOTAL 0.7 MG/DL (0.2-1.0); BLOOD UREA NITROGEN 10 MG/DL (7-18); CALCIUM LEVEL 8.7 MG/DL (8.8-10.2); CARBON DIOXIDE LEVEL 28 MEQ/L (21-32); CHLORIDE LEVEL 111 MEQ/L (98-107); CREATININE FOR GFR 0.67 MG/DL (0.55-1.30); GLOMERULAR FILTRATION RATE > 60.0 (>45); GLUCOSE, FASTING 104 MG/DL (70-100); POTASSIUM SERUM 3.9 MEQ/L (3.5-5.1); SODIUM LEVEL 144 MEQ/L (136-145); TOTAL PROTEIN 6.8 GM/DL (6.4-8.2)
[2019-06-20 16:51] LABS: HEMOGLOBIN A1c 6.2 %
== END ==
LOC: M LAB 15:50
PROVIDERS: ATTEND Physician Assistant
DX: K72.90 Hepatic failure, unspecified without coma (principal); E11.9 Type 2 diabetes mellitus without complications

== ENCOUNTER → 2019-07-04 | Outpatient (REF) | payer OTHER ==
[~2019-07-04] MED LIST changes: +DICY1CAP8 PO; +FLUT1BLS5 IH; +GABA-845 PO; +GLIP10TA PO; +PANT40TA3 PO; +POTA1TAB14 PO; +PROP60CA PO
== END ==
LOC: M SMT 13:47
PROVIDERS: ATTEND Urology
DX: N20.0 Calculus of kidney (principal); Z01.818 Encounter for other preprocedural examination; N39.0 Urinary tract infection, site not specified

== ENCOUNTER 2019-07-14 08:33 | Day surgery (SDC) | payer OTHER ==
[~2019-07-14] VITALS: Ht 172.7 cm; Wt 96.7 kg
[~2019-07-14 08:33] MED LIST changes: +LIDOCAINE 1% MDV 20ML VIAL SQ PRN; +LR 1,000 ML IV ONE; +ceFAZolin SOD 2 GM in IV 1 EA IV ONE
[2019-07-14] MEDS ORDERED: CONRAY-60 60% 50ML VIAL (Q9961) As Ordered ONE (09:32)
[2019-07-14] MEDS ORDERED: fentaNYL 100 MCG/2 ML INJECTION (J3010) As Ordered ONE (10:34)
[2019-07-14] MEDS ORDERED: PROPOFOL 200 MG/20 ML VIAL As Ordered ONE (10:34)
[2019-07-14] MEDS ORDERED: MIDAZOLAM INJ 2 MG/2 ML VIAL (J2250) As Ordered ONE (10:34)
[2019-07-14] MEDS ORDERED: LIDOCAINE 2% INJ 100 MG/5 ML SDV (FOR ANES.) As Ordered ONE (10:34)
[2019-07-14] MEDS ORDERED: dexameTHASONE 4 MG/ML 1ML VIAL (J1100) As Ordered ONE (11:02)
[2019-07-14] MEDS ORDERED: ONDANSETRON 4MG/2ML VIAL (J2405) As Ordered ONE (11:44)
--- NOTE | 2019-07-14 13:06 | REP ---
Retrograde pyelogram: Two views. History: Stent placement. 32 seconds of fluoroscopy time is reported. Findings: A sequence of two last image hold fluoroscopically obtained spot radiographs of the abdomen document right ureteral cannulation, contrast injection, and double pigtail stent placement. Electronically Signed by Cr Jett MD 07/14/2019 01:14 P
[2019-07-14] MEDS ORDERED: fentaNYL 100 MCG/2 ML INJECTION (J3010) IV PRN (13:15)
[2019-07-14] MEDS ORDERED: oxyCODONE 5MG TAB PO PRN (13:15)
[2019-07-14] MEDS ORDERED: ONDANSETRON 4MG/2ML VIAL (J2405) IV PRN (13:15)
[2019-07-14] MEDS ORDERED: LR 1,000 ML IV SCH (13:15)
[2019-07-14] MEDS ORDERED: METOCLOPRAMIDE INJ 10MG/2ML VIAL (J2765) IV PRN (13:15)
[2019-07-14] MEDS ORDERED: ACETAMINOPHEN TAB 650MG DOSE (2X325MG) PO PRN (14:15)
[2019-07-14] MEDS ORDERED: PERCOCET 5MG/325MG TAB PO PRN (14:15)
[2019-07-14 15:10] VITALS: BP 137/67
--- NOTE | 2019-07-15 22:26 | RO ---
DATE OF PROCEDURE: 07/14/2019 PREPROCEDURE DIAGNOSIS: Right kidney stones. POSTPROCEDURE DIAGNOSIS: Right kidney stones. PROCEDURE: Cystoscopy, right ureteroscopy with laser lithotripsy and basket extraction of stones, right retrograde pyelogram with intraoperative interpretation of images, right ureteral stent placement. SURGEON: Dr. Varun Mcduffie ROUTE DELIVERY SERVICE DRIVER: None. ANESTHESIA: General. OPERATIVE INDICATIONS: This is a 64-year-old female who was found to have several nonobstructing right kidney stones measuring up to 8 mm in size. She was brought to the operating room today for treatment. DESCRIPTION OF PROCEDURE: The patient was brought to the operating room and general anesthesia was induced. Prophylactic antibiotics were infused. She was then placed in the dorsal lithotomy position and prepped and draped in the usual sterile fashion. A rigid cystoscope was then inserted into the urethral meatus and advanced to the bladder. Once inside the bladder, a guidewire was advanced up the right collecting system. I then advanced the ureteral access sheath into the right collecting system. I went up the access sheath with a flexible ureteroscope, and the right kidney was thoroughly examined. Within a lower pole calyx, there were several stones measuring up to 8 mm in size. All of these stones were then fragmented into smaller pieces using 272 micron laser fiber. All of the larger fragments were then removed using a basket. Any stone fragments remaining were tiny enough to be able to pass on their own. At this point, a retrograde pyelogram was performed; it was notable for mild right hydronephrosis, no extravasation. I then withdrew the ureteroscope along with the access sheath, and no additional stones were seen within the ureter. I then utilized the wire to advance a 6-Mauritian x 22-32 cm JJ ureteral stent up into the right collecting system. The wire was removed, and there were adequate curls of the stent in the right renal pelvis and in the bladder. The bladder was then emptied of all fluids and this marked the conclusion of the procedure. The patient was then taken out of the dorsal lithotomy position, awakened from anesthesia and transported to the recovery room in stable condition. Estimated blood loss: 5 mL. Complications: None. Specimens: Kidney stone fragments. PLAN: The patient will followup in the clinic in a few weeks for stent removal. CHETNA
== END 2019-07-14 15:23 | disposition home or self-care (01) ==
LOC: M SDC 08:33
PROVIDERS: ATTEND Urology
DX: N20.0 Calculus of kidney (principal); E11.9 Type 2 diabetes mellitus without complications; I10 Essential (primary) hypertension; G47.30 Sleep apnea, unspecified; Z98.84 Bariatric surgery status; F41.9 Anxiety disorder, unspecified; F32.9 Major depressive disorder, single episode, unspecified; Z79.899 Other long term (current) drug therapy; Z79.84 Long term (current) use of oral hypoglycemic drugs; Z87.891 Personal history of nicotine dependence; Z85.3 Personal history of malignant neoplasm of breast; Z92.3 Personal history of irradiation
CPT/HCPCS: 52356; 74420; 82360; 88300; C1769; C1894; C2617; J0690; J1100; J2250; J2405; J3010; Q9961

== ENCOUNTER → 2019-07-20 | Outpatient (CLI) | payer OTHER ==
[~2019-07-20] MED LIST changes: -LIDOCAINE 1% MDV 20ML VIAL SQ PRN; -LR 1,000 ML IV ONE; +ONDA4TAB6 PO; -ceFAZolin SOD 2 GM in IV 1 EA IV ONE
[2019-07-20 11:38] LABS: EOS # 0.5 10^3/uL (0.0-0.5); EOS % 11.5 % (0.0-3.0); HEMATOCRIT 35.5 % (36.0-47.0); HEMOGLOBIN 12.2 g/dl (12.0-15.5); LYMPH # 1.2 10^3/uL (1.5-5.0); LYMPH % 29.3 % (24.0-44.0); MEAN CORPUSCULAR HEMOGLOBIN 33.3 pg (27.0-33.0); MEAN CORPUSCULAR HGB CONC 34.4 g/dl (32.0-36.5); MONO # 0.4 10^3/uL (0.0-0.8); MONO % 9.4 % (0.0-5.0); NEUTROPHILS % 48.6 % (36.0-66.0); PLATELET COUNT, AUTOMATED 123 10^3/uL (150-450); RED BLOOD COUNT 3.66 10^6/uL (4.00-5.40); WHITE BLOOD COUNT 4.2 10^3/uL (4.0-10.0)
[2019-07-20 12:02] LABS: HEMOGLOBIN A1c 5.8 %
[2019-07-20 12:11] LABS: ALBUMIN 2.9 GM/DL (3.2-5.2); ALT/SGPT 37 U/L (12-78); BILIRUBIN,TOTAL 0.7 MG/DL (0.2-1.0); BLOOD UREA NITROGEN 9 MG/DL (7-18); CALCIUM LEVEL 8.2 MG/DL (8.8-10.2); CARBON DIOXIDE LEVEL 27 MEQ/L (21-32); CHLORIDE LEVEL 112 MEQ/L (98-107); CREATININE FOR GFR 0.59 MG/DL (0.55-1.30); FERRITIN 51 NG/ML (8-252); GLOMERULAR FILTRATION RATE > 60.0 (>45); GLUCOSE, FASTING 92 MG/DL (70-100); IRON (FE) 81 UG/DL (50-170); MAGNESIUM LEVEL 1.7 MG/DL (1.8-2.4); PERCENT SATURATION 31.8 % (13.2-45.0); PHOSPHORUS LEVEL 3.1 MG/DL (2.5-4.9); POTASSIUM SERUM 3.7 MEQ/L (3.5-5.1); SODIUM LEVEL 145 MEQ/L (136-145); TOTAL 25(OH) VITAMIN D 35.1 NG/ML (30.0-100.0); TOTAL IRON BINDING CAPACITY 255 UG/DL (250-450); TOTAL PROTEIN 6.6 GM/DL (6.4-8.2); VITAMIN B12 LEVEL 768 PG/ML (247-911)
[2019-07-23 11:09] LABS: HEMATOCRIT 35.5 % (36.0-47.0)
== END ==
LOC: M LAB 09:56
PROVIDERS: ATTEND Surgery
DX: K91.2 Postsurgical malabsorption, not elsewhere classified (principal); Z98.84 Bariatric surgery status; E55.9 Vitamin D deficiency, unspecified; Z86.39 Personal history of other endocrine, nutritional and metabolic disease

== ENCOUNTER 2019-07-24 12:43 | Emergency (ER) | payer OTHER, SELFPAY ==
[~2019-07-24] VITALS: Ht 175.3 cm; Wt 97.2 kg
[~2019-07-24 12:43] MED LIST changes: -FELO10TA PO; +FELO10TA28 PO; -ONDA4TAB6 PO; -OXYB5TAB2; -OXYB5TAB2 PO; +OXYB5TAB3; +OXYB5TAB3 PO
[2019-07-24] MEDS ORDERED: NS 1,000 ML IV ONE (13:30)
[2019-07-24 13:46] LABS: BASO # 0.1 10^3/uL (0.0-0.2); BASO % 1.4 % (0.0-1.0); EOS # 0.6 10^3/uL (0.0-0.5); EOS % 12.6 % (0.0-3.0); HEMATOCRIT 36.7 % (36.0-47.0); HEMOGLOBIN 12.6 g/dl (12.0-15.5); LYMPH # 1.5 10^3/uL (1.5-5.0); MEAN CORPUSCULAR HEMOGLOBIN 32.9 pg (27.0-33.0); MEAN CORPUSCULAR HGB CONC 34.3 g/dl (32.0-36.5); MEAN CORPUSCULAR VOLUME 95.8 fl (80.0-96.0); MONO # 0.5 10^3/uL (0.0-0.8); MONO % 10.6 % (0.0-5.0); NEUTROPHILS # 1.8 10^3/uL (1.5-8.5); NEUTROPHILS % 41.2 % (36.0-66.0); PLATELET COUNT, AUTOMATED 147 10^3/uL (150-450); RED BLOOD COUNT 3.83 10^6/uL (4.00-5.40); WHITE BLOOD COUNT 4.4 10^3/uL (4.0-10.0)
[2019-07-24 14:23] LABS: ALBUMIN 3.3 GM/DL (3.2-5.2); ALT/SGPT 42 U/L (12-78); BILIRUBIN,TOTAL 0.9 MG/DL (0.2-1.0); BLOOD UREA NITROGEN 5 MG/DL (7-18); CALCIUM LEVEL 8.8 MG/DL (8.8-10.2); CARBON DIOXIDE LEVEL 28 MEQ/L (21-32); CHLORIDE LEVEL 113 MEQ/L (98-107); CK-MB VALUE MASS 1.1 NG/ML (<3.6); CPK CREATINE PHOSPHOKINASE 62 U/L (26-192); GLOMERULAR FILTRATION RATE > 60.0 (>45); GLUCOSE, FASTING 123 MG/DL (70-100); MB/CK RELATIVE INDEX 1.77 (< OR =4); POTASSIUM SERUM 3.9 MEQ/L (3.5-5.1); SODIUM LEVEL 145 MEQ/L (136-145); TOTAL PROTEIN 7.4 GM/DL (6.4-8.2); TROPONIN I < 0.02 NG/ML (< 0.10)
[2019-07-24] MEDS ORDERED: ISOVUE-370 76% 100ML VIAL (Q9967) As Ordered ONE (14:26)
--- NOTE | 2019-07-24 14:58 | REP ---
Clinical: Epigastric pain and nausea. Technique: Axial contrast enhanced images from the lung bases to the pubic symphysis with coronal and sagittal re-formations using 100 ml Isovue 370 intravenous contrast material. Findings: Cirrhosis with small amount of perihepatic fluid, splenomegaly, and portosystemic shunting. Evidence for prior gastric bypass surgery and cholecystectomy. Pancreas, bilateral adrenal glands and left kidney are normal. The right kidney includes small nonobstructing intrarenal calculi and ureteral stent in satisfactory position. The enteric system is without obstruction or obvious acute inflammatory process. Pelvis demonstrates normal bladder and heterogeneous prominent uterus/adnexa suggesting underlying myomatous changes. No free air. Scattered mesenteric lymph nodes consistent with further evidence for cirrhosis. Abdominal aorta without aneurysm or dissection. Musculoskeletal structures demonstrate degenerative changes without focal abnormality. Lung bases are clear. Impression: 1. Cirrhosis with splenomegaly and portal venous hypertension including portosystemic shunting. Small amount of perihepatic fluid. 2. Prominent heterogeneous uterus likely representing myomatous changes. 3. No further acute abdominopelvic pathology appreciated. 4. Evidence for prior gastric bypass surgery and cholecystectomy. 5. Nonobstructing right intrarenal calculi along with right ureteral stent in satisfactory position. Electronically Signed by Isak Toussaint MD 07/24/2019 02:49 P
[2019-07-24] MEDS ORDERED: ONDA4TAB6 PO (15:49)
[2019-07-24 16:03] VITALS: BP 159/67
--- NOTE | 2019-07-25 13:41 | ED PDOC ---
Post-Departure Follow-Up dr lupe carcamo faxed formal report of ct abd/p for fu Nathanael Otoole MD Jul 25, 2019 13:41
== END 2019-07-24 16:05 | disposition home or self-care (01) ==
LOC: M ED 12:43
DX: R74.8 Abnormal levels of other serum enzymes (principal); K74.60 Unspecified cirrhosis of liver; K76.6 Portal hypertension; N20.0 Calculus of kidney; N85.8 Other specified noninflammatory disorders of uterus; E11.9 Type 2 diabetes mellitus without complications; J45.909 Unspecified asthma, uncomplicated; I10 Essential (primary) hypertension; Z79.51 Long term (current) use of inhaled steroids; Z79.84 Long term (current) use of oral hypoglycemic drugs; Z79.899 Other long term (current) drug therapy; Z96.0 Presence of urogenital implants
CPT/HCPCS: 74177; 80053; 81001; 82140; 82550; 82553; 85025; 86140; 87086; 96360; 99284; Q9967

== ENCOUNTER 2019-08-10 16:52 | Inpatient (IN) | payer OTHER, SELFPAY ==
[~2019-08-10] VITALS: Ht 177.8 cm; Wt 88.8 kg
[~2019-08-10 16:52] MED LIST changes: +ONDA4TAB6 PO
[2019-08-10] MEDS ORDERED: NS 1,000 ML IV ONE (17:30)
[2019-08-10 17:41] LABS: BASO # 0.1 10^3/uL (0.0-0.2); BASO % 1.2 % (0.0-1.0); EOS # 0.5 10^3/uL (0.0-0.5); EOS % 8.8 % (0.0-3.0); HEMATOCRIT 42.3 % (36.0-47.0); HEMOGLOBIN 14.3 g/dl (12.0-15.5); LYMPH # 1.7 10^3/uL (1.5-5.0); LYMPH % 27.8 % (24.0-44.0); MEAN CORPUSCULAR HEMOGLOBIN 32.6 pg (27.0-33.0); MEAN CORPUSCULAR HGB CONC 33.8 g/dl (32.0-36.5); MEAN CORPUSCULAR VOLUME 96.4 fl (80.0-96.0); MONO # 0.5 10^3/uL (0.0-0.8); MONO % 8.9 % (0.0-5.0); NEUTROPHILS # 3.2 10^3/uL (1.5-8.5); PLATELET COUNT, AUTOMATED 186 10^3/uL (150-450); RED BLOOD COUNT 4.39 10^6/uL (4.00-5.40); WHITE BLOOD COUNT 5.9 10^3/uL (4.0-10.0)
--- NOTE | 2019-08-10 17:46 | ECGEPIP ---
[facility] - ED Test Date: 2019-08-10 Pat Name: LEROY OWEN Department: Room: - Gender: Female Training Manager: peyton : 1955 Requested By: ALEXEI RODRIGUEZ Order Number: [id number] Reading MD: Daphnie Grimaldo Measurements Intervals [place] Rate: 59 P: 23 OR: 186 QRS: 11 QRSD: 99 T: 29 QT: 447 QTc: 444 Interpretive Statements SINUS BRADYCARDIA NSTTW abnormalities SIMILAR 01/16/19 Electronically Signed on 08-10-2019 17:46:23 EST by Daphnie Grimaldo
[2019-08-10 18:12] LABS: ACETAMINOPHEN LEVEL < 2.0 UG/ML (10.0-30.0); ALBUMIN 3.4 GM/DL (3.2-5.2); ALT/SGPT 55 U/L (12-78); BILIRUBIN,DIRECT 0.3 MG/DL (0.0-0.2); BILIRUBIN,TOTAL 0.7 MG/DL (0.2-1.0); BLOOD UREA NITROGEN 12 MG/DL (7-18); CALCIUM LEVEL 9.1 MG/DL (8.8-10.2); CARBON DIOXIDE LEVEL 25 MEQ/L (21-32); CHLORIDE LEVEL 112 MEQ/L (98-107); CK-MB VALUE MASS 1.3 NG/ML (<3.6); CPK CREATINE PHOSPHOKINASE 62 U/L (26-192); CREATININE FOR GFR 0.68 MG/DL (0.55-1.30); ETHYL ALCOHOL (ETHANOL) 0.005 % (0.000-0.010); GLOMERULAR FILTRATION RATE > 60.0 (>45); GLUCOSE, FASTING 160 MG/DL (70-100); SALICYLATE LEVEL < 1.7 MG/DL (5.0-30.0); SODIUM LEVEL 144 MEQ/L (136-145); TOTAL PROTEIN 7.9 GM/DL (6.4-8.2); TROPONIN I < 0.02 NG/ML (< 0.10)
[2019-08-10] MEDS ORDERED: LACTULOSE 20 GM/30 ML SYRUP UD PO ONE (18:30)
--- NOTE | 2019-08-10 18:33 | REPVR ---
PROCEDURE INFORMATION: Exam: CT Head Without Contrast Exam date and time: 08/10/2019 5:53 PM Age: 64 years old Clinical indication: Altered mental status/memory loss; Confusion or disorientation TECHNIQUE: Imaging protocol: Computed tomography of the head without contrast. Radiation optimization: All CT scans at this facility use at least one of these dose optimization techniques: automated exposure control; mA and/or kV adjustment per patient size (includes targeted exams where dose is matched to clinical indication); or iterative reconstruction. COMPARISON: CT Head without contrast 12/04/2018 7:30 PM FINDINGS: Brain: There is no acute intracranial hemorrhage or abnormal extra-axial fluid collection identified. There is no intracranial mass effect or shift of midline structures. The bates-white differentiation is preserved throughout. Ventricles: There is no sulcal or ventricular effacement. The basilar cisterns are open. No hydrocephalus. Bones/joints: No calvarial fracture or destructive osseous lesions are seen. Sinuses: The visualized sinuses are unremarkable. Mastoid air cells: There is no mastoid effusion detected. IMPRESSION: No acute intracranial pathology identified by CT. Electronically signed by: Dorene Boothe On 08/10/2019 18:32:47 PM
[2019-08-10] MEDS ORDERED: GLIP5TAB8 PO (19:09)
[2019-08-10] MEDS ORDERED: VOLT1GEL15 TOP (19:09)
[2019-08-10] MEDS ORDERED: ONDA4TAB6 PO (19:09)
[2019-08-10] MEDS ORDERED: CLIN1LOT TOP (19:09)
[2019-08-10] MEDS ORDERED: FLUT1INH2 INH (19:09)
[2019-08-10] MEDS ORDERED: KETO2SHA9 TOP (19:09)
[2019-08-10] MEDS ORDERED: MED REC COMMENT (19:11)
[2019-08-10] MEDS ORDERED: GLUCAGON FOR INJ 1 MG VIAL (J1610) SC PRN (19:45)
[2019-08-10] MEDS ORDERED: DEXTROSE 50% 50 ML SYRINGE IV PRN (19:45)
[2019-08-10] MEDS ORDERED: GLUCOSE 4 GM CHEW TABLET PO PRN (19:45)
--- NOTE | 2019-08-10 19:48 | HPEPDOC ---
General Date of Admission 08/10/19 Date of Service: Aug 10, 2019 Chief Complaint The patient is a 64-year-old female admitted with a reason for visit of Abnormal Lab Results. Source: Family Exam Limitations: Clinical conditions Severity: Moderate Associated Symptoms: Nausea History of Present Illness Patient is 64 years old female with past medical history of cirrhosis due to CANALES, thrombocytopenia, portal hypertension, h/o hepatic encephalopathy, morbid obesity s/p gastric bypass surgery in 2018, ALYSSA on BIPAP, diabetes, hypertension, chronic back pain, neck pain presented to the ED with altered mental status. According to the family members patient most likely has been confused for a few days. Today she did have increased sleepiness and was lethargic all day. In emergency room patient was found to have elevated ammonia level of 129. According to the family patient regularly took lactulose, she d idn't have any fever, chills, diarrhea, dysuria. Of note recently patient has been re prescribed gabapentin from different physician. Head CT was done and didn't show any acute findings. Home Medications Scheduled Anastrozole (Anastrozole) 1 Mg Tablet, 1 MG PO DAILY, (Reported) Bupropion HCl (Bupropion Xl) 300 Mg Tab.er.24h, 300 MG PO DAILY, (Reported) Calcium Carbonate/Vitamin D3 (Caltrate 600 + D Soft Chew Tab) 1 Each Tab.chew, 2 CHW PO QPM, (Reported) Cetirizine HCl (Cetirizine HCl) 10 Mg Tab, 10 MG PO DAILY, (Reported) Clindamycin Phosphate (Clindamycin Phosphate) 1% 60ML Lotion, 1 APLCT TOP DAILY, (Reported) APPLY TO BUTTOCKS Cyanocobalamin (Vitamin B-12) (Vitamin B-12) 500 Mcg Tablet, 500 MCG PO DAILY, (Reported) Duloxetine Hcl (Duloxetine HCl) 60 Mg Cap, 60 MG PO QHS, (Reported) Fluticasone Propion/Salmeterol (Fluticasone-Salmeterol 113-14) 1 Each Aer.pow.ba, 1 PUFF INH BID, (Reported) Gabapentin (Gabapentin) 400 Mg Capsule, 400 MG PO TID, (Reported) Glipizide (Glipizide) 5 Mg Tablet, 5 MG PO TID, (Reported) Ketoconazole (Ketoconazole) 120 Ml Shampoo, 1 APLCT TOP 2XW, (Reported) with at least 3 days between each shampooing Lactulose (Lactulose) 10 Gm/15 Ml Solution, 40 ML PO TID, (Reported) Magnesium Oxide (Magnesium Oxide) 500 Mg Tablet, 500 MG PO QPM, (Reported) Metformin HCl (Metformin HCl ER) 500 Mg Tab, 1,000 MG PO BID, (Reported) Multivitamins (Thera M Plus Tablet) 1 Each Tablet, 2 TAB PO DAILY, (Reported) Oxybutynin Chloride (Oxybutynin Chloride ER) 5 Mg Tab.er.24, 5 MG PO QPM, (Reported) Pantoprazole Sodium (Pantoprazole Sodium) 40 Mg Tablet.dr, 40 MG PO DAILY, (Reported) Potassium Chloride (Potassium Chloride) 20 Meq Tablet.er, 20 MEQ PO DAILY, (Rep orted) Propranolol HCl (Propranolol HCl ER) 60 Mg Cap.sa.24h, 60 MG PO DAILY, (Reported) Ranitidine HCl (Ranitidine HCl) 150 Mg Tablet, 1 TAB PO DAILY, (Reported) Rifaximin (Xifaxan) 550 Mg Tablet, 550 MG PO BID, (Reported) Scheduled PRN Acetaminophen (Acetaminophen) 500 Mg Tab, 1,000 MG PO Q6H PRN for PAIN, (Reported) Albuterol Sulfate (Proair Hfa) 8.5 Gm Hfa.aer.ad, 2 PUFF INH Q4H PRN for SHORTNESS OF BREATH, (Reported) Diclofenac Sodium (Voltaren) 100 Gm Gel..gram., 1 GRAM TOP QID PRN for KNEE PAIN, (Reported) apply to affected area(s) Dicyclomine HCl (Dicyclomine HCl) 10 Mg Capsule, 10 MG PO BID PRN for ABDOMINAL PAIN, (Reported) Ondansetron (Ondansetron Odt) 4 Mg Tab.rapdis, 4 MG PO Q6H PRN for NAUSEA OR VOMITING, (Reported) Miscellaneous Medications [Med Rec Comment] , (Reported) OBTAINED LIST FROM PHARMACY AND FAMILY MEMBERS Allergies Coded Allergies: No Known Drug Allergies (Verified Allergy, Unknown, 12/04/18) Past Medical History Medical History 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 Diabetes. Hypertension. Asthma. History of breast cancer of the left breast in June 2014. Sleep apnea, on BIPAP 08/08 Vitamin D deficiency. Hypertension. Thrombocytopenia. Obesity with history of lap band in the past and then gastric bypass surgery on 05/17/2018. Chronic low back pain. Chronic neck pain with history of cervical fusion in the past. Possible history of congestive heart failure. Right-sided renal calculus seen on CT scan of the abdomen. Diverticulosis of the colon. Surgical History Lap band 7 years ago. Gastric bypass surgery for obesity on 05/17/2018. Bilateral knee arthroscopies. Cervical fusion. Left breast surgery for breast cancer. Left shoulder surgery. Cholecystectomy. Bilateral wrist surgery for carpal tunnel repair. Rotator cuff repair Family History Father from colon cancer Social History * Smoker: Denies, former Smoker Alcohol: Denies Drugs: denies A-FIB/CHADSVASC A-FIB History Current/History of A-Fib/PAF?: No Current PO Anticoag Therapy: No Review of Systems Constitutional: Reports: Lethargy; Denies: Chills, Fever, Malaise Eyes: Denies: Pain ENT: Denies: Head Aches, Ear Pain Skin: Denies: Rash, Lesions, Jaundice Pulmonary: Denies: Dyspnea Cardiovascular: Denies: Chest Pain Gastrointestinal: Reports: Nausea; Denies: Vomiting Genitourinary: Denies: Dysuria Hematologic: Denies: Bruising, Bleeding Excessively Endocrine: Denies: Polydipsia, Polyphagia Musculoskeletal: Denies: Neck Pain, Back Pain Neurological: Denies: Weakness, Numbness Psych: Reports: Mood Normal Physical Examination General Exam: Positive: Other (lethargic) Eye Exam: Positive: PERRLA, Conjunctiva & lids normal ENT Exam: Positive: Atraumatic Neck Exam: Positive: Supple; Negative: JVD Chest Exam: Positive: Clear to auscultation Heart Exam: Positive: Rate Normal Telemetry: Positive: No significant arrhythmia Abdomen Exam: Positive: Normal bowel sounds, Soft Extremity Exam: Negative: Clubbing, Cyanosis Skin Exam: Positive: Nl turgor and temperature Neuro Exam: Positive: Normal Tone, Reflexes 2+ (patient oriented in time and place) Psych Exam: Positive: Other (patient and in place and in time) Vital Signs Vital Signs Date Time Temp Pulse Resp B/P (MAP) Pulse Ox O2 Delivery O2 Flow Rate FiO2 08/10/19 18:22 58 16 97 08/10/19 17:29 08/10/19 16:53 97.6 Room Air Laboratory Data Labs 24H Laboratory Tests 2 08/10/19 17:22: Immature Granulocyte % (Auto) 0.3, Neutrophils (%) (Auto) 53.0, Lymphocytes (%) (Auto) 27.8, Monocytes (%) (Auto) 8.9H, Eosinophils (%) (Auto) 8.8H, Basophils (%) (Auto) 1.2H, Neutrophils # (Auto) 3.2, Lymphocytes # (Auto) 1.7, Monocytes # (Auto) 0.5, Eosinophils # (Auto) 0.5, Basophils # (Auto) 0.1, Nucleated Red Blood Cells % (auto) 0.0, Anion Gap 7L, Glomerular Filtration Rate > 60.0, Lactic Acid Level 1.5, Calcium Level 9.1, Total Bilirubin 0.7, Direct Bilirubin 0.3H, Aspartate Amino Transf (AST/SGOT) 54H, Alanine Aminotransferase (ALT/SGPT) 55, Alkaline Phosphatase 138H, Ammonia 129H, Total Creatine Kinase 62, Creatine Kinase MB 1.3, Creatine Kinase MB Relative Index 2.10, Troponin I < 0.02, Total Protein 7.9, Albumin 3.4, Albumin/Globulin Ratio 0.76L, Thyroid Stimulating Hormone (TSH) 1.740, Salicylates Level < 1.7L, Acetaminophen Level < 2.0L, Ethyl Alcohol Level 0.005 CBC/BMP Laboratory Tests 08/10/19 17:22 Assessment/Plan Patient is 64 years old female with past medical history of cirrhosis due to CANALES, thrombocytopenia, portal hypertension, h/o hepatic encephalopathy, morbid obesity s/p gastric bypass surgery in 2018, ALYSSA on BIPAP, diabetes, hyperte nsion, chronic back pain, neck pain presented to the ED with altered mental status. According to the family members patient most likely has been confused for a few days. Problems (1) Altered mental status Status: Acute Problem Text: Most likely secondary to increased level of ammonia due to most likely noncompliance to lactulose and rifaximin, there is also possibility of polypharmacy I will discontinue gabapentin, I will hold psych medication no signs of infection or dehydration or electrolyte imbalance or gastroi ntestinal bleeding Restart lactulose IV fluid (2) Increased ammonia level Status: Acute Problem Text: Will restart lactulose with parameters (3) DM2 (diabetes mellitus, type 2) Status: Resolved Problem Text: Diabetes diet Insulin sliding scale Plan / VTE VTE Prophylaxis Ordered?: Yes CHUCK MCLEOD DO Aug 10, 2019 19:48
--- NOTE | 2019-08-10 19:58 | REP ---
CHEST, SINGLE VIEW: There is no evidence of acute infiltrate. No pleural effusion is seen. The heart is normal in size. The mediastinal silhouette is unremarkable. The visualized osseous structures are intact. IMPRESSION: No acute pulmonary disease. Electronically Signed by Donnell Leggett MD 08/10/2019 08:07 P
[2019-08-10] MEDS: HumaLOG INSULIN (NovoLOG) PER UNIT SC SCH (21:00)
[2019-08-10 21:30] VITALS: BP 155/68
[2019-08-10] MEDS: LACTULOSE 20 GM/30 ML SYRUP UD PO SCH (21:51)
[2019-08-10] MEDS: rifAXIMin 550 MG TAB (XIFAXAN) PO SCH (21:51)
[2019-08-10] MEDS: NS 1,000 ML IV SCH (21:52)
[2019-08-10] MEDS ORDERED: ONDANSETRON 4MG/2ML VIAL (J2405) IV PRN (23:30)
[2019-08-11 04:00] VITALS: BP 128/84
[2019-08-11 06:31] LABS: HEMATOCRIT 37.4 % (36.0-47.0); MEAN CORPUSCULAR HEMOGLOBIN 33.2 pg (27.0-33.0); MEAN CORPUSCULAR HGB CONC 34.8 g/dl (32.0-36.5); MEAN CORPUSCULAR VOLUME 95.7 fl (80.0-96.0); PLATELET COUNT, AUTOMATED 145 10^3/uL (150-450); RED BLOOD COUNT 3.91 10^6/uL (4.00-5.40)
[2019-08-11 07:01] LABS: ALT/SGPT 51 U/L (12-78); BILIRUBIN,TOTAL 0.8 MG/DL (0.2-1.0); BLOOD UREA NITROGEN 12 MG/DL (7-18); CALCIUM LEVEL 8.8 MG/DL (8.8-10.2); CARBON DIOXIDE LEVEL 26 MEQ/L (21-32); CHLORIDE LEVEL 114 MEQ/L (98-107); CREATININE FOR GFR 0.56 MG/DL (0.55-1.30); GLOMERULAR FILTRATION RATE > 60.0 (>45); GLUCOSE, FASTING 142 MG/DL (70-100); MAGNESIUM LEVEL 1.8 MG/DL (1.8-2.4); POTASSIUM SERUM 3.7 MEQ/L (3.5-5.1); SODIUM LEVEL 146 MEQ/L (136-145); TOTAL PROTEIN 7.4 GM/DL (6.4-8.2)
[2019-08-11] MEDS: HumaLOG INSULIN (NovoLOG) PER UNIT SC SCH ×4 (07:30→20:58)
[2019-08-11] MEDS: NS 1,000 ML IV SCH (08:22)
[2019-08-11 09:41] LABS: INR 1.22; PROTHROMBIN TIME 15.1 SECONDS (11.8-14.0)
[2019-08-11] MEDS: HEPARIN SOD (PORCINE) 5000 UNITS/ML VIAL SC SCH ×2 (10:12→20:55)
[2019-08-11] MEDS: rifAXIMin 550 MG TAB (XIFAXAN) PO SCH ×2 (10:12→20:54)
[2019-08-11] MEDS: POTASSIUM CHLORIDE 10 MEQ SR TABLET PO SCH (10:13)
[2019-08-11] MEDS: LACTULOSE 20 GM/30 ML SYRUP UD PO SCH ×3 (10:13→20:55)
[2019-08-11] MEDS: PROPRANOLOL 60 MG LA CAP PO SCH (10:13)
[2019-08-11] MEDS: PANTOPRAZOLE 40MG TAB (PROTONIX) PO SCH (10:18)
[2019-08-11] MEDS: buPROPion **XL** TABLET 150MG (WELLBUTRIN XL) PO SCH (10:18)
--- NOTE | 2019-08-11 10:33 | IPN ---
DATE: 08/11/2019 PRIMARY CARE PROVIDER: Dr. Kerr HISTORY: Steff was admitted to the hospitalist service with hepatic encephalopathy. She has not been taking her lactulose or her rifaximin. She was started on gabapentin recently as well. She was admitted with encephalopathy. Today, she is alert but answers are slow and speech slightly slurred. She is able to name her primary care provider. PHYSICAL EXAMINATION: Blood pressure 128/84, pulse 58, respiratory rate 18, 97% oxygen saturation. GENERAL APPEARANCE: As above. NECK: Supple. LUNGS: Clear. HEART: Regular rate and rhythm without murmur. ABDOMEN: Soft. No ascites. No peripheral edema. She has asterixis present. Neurological examination is otherwise nonfocal. Normal strength and sensation in the upper and lower extremities. LABORATORY DATA: I do not have an ammonia level. Sodium is up to 146, potassium 3.7, BUN 12, creatinine 0.6, glucose 142. I do not have an INR. White count 5, hemoglobin 13, platelets 145. IMPRESSION: 1. Hepatic encephalopathy. The patient is back on a regimen of lactulose and rifaximin. I do not have a followup ammonia level so this has been ordered. Clinically, she is still encephalopathic. No sign of infection as the cause of this. I do not feel any ascites on examination, so I do not think this is a manifestation of any spontaneous bacterial peritonitis. 2. Diabetes. Currently on a sliding scale with coverage. 3. Various psychiatric illnesses. She is on a number of psychotropic medications at home including Wellbutrin, Cymbalta, and gabapentin. At this point, I think we can restart the Cymbalta and the Wellbutrin. I agree with holding the gabapentin which might have precipitated the encephalopathy. 4. History of renal stones. The patient has recurrent stones. It looks like she had a preoperative 06/23/2019 for removal or renal stones by Dr. Mcduffie. Medical history indicates that the patient has a history of essential hypertension, gastroesophageal (GE) reflux, diabetic neuropathy, mild persistent asthma, obstructive sleep apnea (ALYSSA), history of breast cancer, history of bariatric surgery. Unfortunately, it does not tell us if there are any varices. It looks like the last esophagogastroduodenoscopy (EGD) was August 2010 and there is no comment on the presence or absence of varices. The patient is on propranolol as an outpatient which would typically be used for prophylaxis of variceal bleeding but again, I do not see anything that tells us if this has actually happened in the past.
[2019-08-11 15:25] VITALS: BP 150/82
[2019-08-11] MEDS: DULoxetine 30 MG CAP (CYMBALTA) PO SCH (20:54)
[2019-08-11 22:00] VITALS: BP 137/79
[2019-08-12 06:00] VITALS: BP 129/60
[2019-08-12] MEDS: rifAXIMin 550 MG TAB (XIFAXAN) PO SCH ×2 (08:38→21:03)
[2019-08-12] MEDS: POTASSIUM CHLORIDE 10 MEQ SR TABLET PO SCH (08:38)
[2019-08-12] MEDS: PANTOPRAZOLE 40MG TAB (PROTONIX) PO SCH (08:38)
[2019-08-12] MEDS: LACTULOSE 20 GM/30 ML SYRUP UD PO SCH ×4 (08:39→21:02)
[2019-08-12] MEDS: buPROPion **XL** TABLET 150MG (WELLBUTRIN XL) PO SCH (08:39)
[2019-08-12] MEDS: HEPARIN SOD (PORCINE) 5000 UNITS/ML VIAL SC SCH ×2 (08:39→21:03)
[2019-08-12] MEDS: PROPRANOLOL 60 MG LA CAP PO SCH (08:39)
[2019-08-12] MEDS: HumaLOG INSULIN (NovoLOG) PER UNIT SC SCH ×4 (08:40→21:00)
--- NOTE | 2019-08-12 11:45 | IPN ---
DATE: 08/12/2019 Steff is seen on [facility]. Her encephalopathy is better. Unfortunately, she has developed some left-sided flank and lower abdominal pain. She has history of recurrent renal stones, including requirement for urology intervention within the last month. PHYSICAL EXAM: VITAL SIGNS: Stable. LUNGS: Clear. HEART: Regular rate and rhythm. ABDOMEN: Soft, tender left mid abdomen and left flank. I do not palpate any ascites. She has no asterixis today. LABS: Sodium is 146, potassium 3.7, BUN 12, creatinine 0.5. Ammonia is down to 90. CBC unremarkable. Blood sugar essentially normal. IMPRESSION: 1. Hepatic encephalopathy improved on Augmentin dose of lactulose and compliance with rifaximin. If it was not for the abdominal pain I would discharge her today. 2. Abdominal pain. Ultrasound of the abdomen ordered to rule out ascites or renal stone. 3. Various psychiatric illnesses. Continue current regimen. 4. Diabetes. Continue sliding scale with coverage.
--- NOTE | 2019-08-12 12:55 | REP ---
Right quadrant sonography: History: Abdomen pain. 1 month status post lithotripsy. Findings: The gallbladder is surgically absent. Scanning through right upper quadrant of the abdomen demonstrates coarse echotexture and some irregularity of the borders of the liver consistent with some degree of cirrhosis. The liver measures 17 cm in the midclavicular line in vertical span. This is mildly prominent. There is a 1.7 cm echogenic focus in the right lobe of the liver which as compatible with hemangioma. Limited views of the pancreas show no abnormality. The tail of the pancreas is obscured by abdominal gas. There is no evidence of free fluid. Right kidney measures 12.2 x 5.6 x 5.8 cm. There is mild hydronephrosis affecting the right kidney. There are small echogenic foci scattered about the right kidney suggestive of right renal stones. Impression: Mild right-sided hydronephrosis with a tiny stone fragment suspected in the right kidney. Post cholecystectomy. 17 mm hemangioma of the liver. Coarse echotexture in the liver question cirrhosis. Electronically Signed by Cr Jett MD 08/12/2019 01:56 P
[2019-08-12 14:00] VITALS: BP 131/64
[2019-08-12] MEDS: DULoxetine 30 MG CAP (CYMBALTA) PO SCH (21:02)
[2019-08-12 22:00] VITALS: BP 154/74
[2019-08-13 06:00] VITALS: BP 152/83
[2019-08-13] MEDS: buPROPion **XL** TABLET 150MG (WELLBUTRIN XL) PO SCH (08:14)
[2019-08-13] MEDS: rifAXIMin 550 MG TAB (XIFAXAN) PO SCH ×2 (08:14→20:56)
[2019-08-13] MEDS: LACTULOSE 20 GM/30 ML SYRUP UD PO SCH ×4 (08:14→20:56)
[2019-08-13] MEDS: PANTOPRAZOLE 40MG TAB (PROTONIX) PO SCH (08:14)
[2019-08-13] MEDS: PROPRANOLOL 60 MG LA CAP PO SCH (08:14)
[2019-08-13] MEDS: POTASSIUM CHLORIDE 10 MEQ SR TABLET PO SCH (08:14)
[2019-08-13] MEDS: HumaLOG INSULIN (NovoLOG) PER UNIT SC SCH ×4 (08:15→21:00)
[2019-08-13] MEDS: HEPARIN SOD (PORCINE) 5000 UNITS/ML VIAL SC SCH ×2 (08:15→20:56)
--- NOTE | 2019-08-13 09:51 | IPN ---
DATE: 08/13/2019 Steff clinically has improved. She is only having a few bowel movements a day and her ammonia, though improved, is not going down any. Her abdominal pain resolved since yesterday. Ultrasound was unrevealing for any kind of a left sided abdominal process. She has mild hydronephrosis on the right, which is from previous urologic problems. PHYSICAL EXAMINATION: Afebrile. Vital signs stable. Alert, conversant. LUNGS: Clear. HEART: Regular rhythm. ABDOMEN: Soft, nontender, nondistended. No ascites. NEUROLOGIC: No asterixis. LABORATORIES: CBC unremarkable. Ammonia is up to 97. IMPRESSION: 1. Hepatic encephalopathy. She still seems a little confused and she really has not had good stooling. We will increase the dose of her lactulose for three to four loose stools per day. Anticipate she will probably be stable for discharge tomorrow.
[2019-08-13 14:00] VITALS: BP 142/75
[2019-08-13 19:50] VITALS: BP 126/70
[2019-08-13] MEDS: DULoxetine 30 MG CAP (CYMBALTA) PO SCH (20:56)
[2019-08-14 06:40] VITALS: BP 119/57
[2019-08-14 06:50] LABS: BLOOD UREA NITROGEN 8 MG/DL (7-18); CALCIUM LEVEL 8.8 MG/DL (8.8-10.2); CARBON DIOXIDE LEVEL 25 MEQ/L (21-32); CHLORIDE LEVEL 111 MEQ/L (98-107); CREATININE FOR GFR 0.48 MG/DL (0.55-1.30); GLOMERULAR FILTRATION RATE > 60.0 (>45); GLUCOSE, FASTING 150 MG/DL (70-100); SODIUM LEVEL 144 MEQ/L (136-145)
[2019-08-14] MEDS: LACTULOSE 20 GM/30 ML SYRUP UD PO SCH ×4 (08:47→20:15)
[2019-08-14] MEDS: POTASSIUM CHLORIDE 10 MEQ SR TABLET PO SCH (08:47)
[2019-08-14] MEDS: PROPRANOLOL 60 MG LA CAP PO SCH (08:47)
[2019-08-14] MEDS: buPROPion **XL** TABLET 150MG (WELLBUTRIN XL) PO SCH (08:47)
[2019-08-14] MEDS: PANTOPRAZOLE 40MG TAB (PROTONIX) PO SCH (08:47)
[2019-08-14] MEDS: rifAXIMin 550 MG TAB (XIFAXAN) PO SCH ×2 (08:47→20:16)
[2019-08-14] MEDS: HumaLOG INSULIN (NovoLOG) PER UNIT SC SCH ×4 (08:48→21:00)
[2019-08-14] MEDS: HEPARIN SOD (PORCINE) 5000 UNITS/ML VIAL SC SCH ×2 (08:48→20:16)
--- NOTE | 2019-08-14 12:46 | IPN ---
DATE: 08/14/2019 Steff is feeling better, though still weak. She does not feel she is ready to go home. She only walked the hallway a few times yesterday. Despite augmenting the dose of her lactulose, she only had four stools yesterday, but they are becoming ordering box operator. PHYSICAL EXAMINATION: Vital signs stable. 119/57. She is alert, conversant and in no distress. No asterixis. Lungs are clear. Heart regular rhythm. Abdomen soft and nontender. No peripheral edema. IMPRESSION: Hepatic encephalopathy. I would like to see her ammonia lower before she gets discharged. I would like to see her more ambulatory. I asked to ambulate in the paredes as much as possible today and will plan discharge tomorrow. Repeat ammonia level scheduled for tomorrow.
[2019-08-14 14:00] VITALS: BP 125/62
[2019-08-14] MEDS: DULoxetine 30 MG CAP (CYMBALTA) PO SCH (20:16)
[2019-08-14 22:00] VITALS: BP 122/55
[2019-08-15 06:00] VITALS: BP 126/74
[2019-08-15 07:21] LABS: BLOOD UREA NITROGEN 8 MG/DL (7-18); CALCIUM LEVEL 8.5 MG/DL (8.8-10.2); CARBON DIOXIDE LEVEL 25 MEQ/L (21-32); CHLORIDE LEVEL 112 MEQ/L (98-107); CREATININE FOR GFR 0.58 MG/DL (0.55-1.30); GLOMERULAR FILTRATION RATE > 60.0 (>45); GLUCOSE, FASTING 163 MG/DL (70-100); POTASSIUM SERUM 3.7 MEQ/L (3.5-5.1); SODIUM LEVEL 144 MEQ/L (136-145)
[2019-08-15] MEDS: HEPARIN SOD (PORCINE) 5000 UNITS/ML VIAL SC SCH (08:10)
[2019-08-15] MEDS: HumaLOG INSULIN (NovoLOG) PER UNIT SC SCH ×2 (08:10→12:02)
[2019-08-15] MEDS: PANTOPRAZOLE 40MG TAB (PROTONIX) PO SCH (08:11)
[2019-08-15] MEDS: LACTULOSE 20 GM/30 ML SYRUP UD PO SCH ×2 (08:11→12:02)
[2019-08-15] MEDS: buPROPion **XL** TABLET 150MG (WELLBUTRIN XL) PO SCH (08:11)
[2019-08-15 08:13] VITALS: BP 141/72
[2019-08-15] MEDS: rifAXIMin 550 MG TAB (XIFAXAN) PO SCH (08:13)
[2019-08-15] MEDS: POTASSIUM CHLORIDE 10 MEQ SR TABLET PO SCH (08:13)
[2019-08-15] MEDS: PROPRANOLOL 60 MG LA CAP PO SCH (08:13)
[2019-08-15] MEDS ORDERED: GLIP5TAB8 PO (12:00)
[2019-08-15] MEDS ORDERED: Lactulose Syrup PO (12:00)
--- NOTE | 2019-08-15 13:34 | DSES ---
DATE OF ADMISSION: 08/10/2019 DATE OF DISCHARGE: 08/15/2019 PRINCIPAL DIAGNOSIS: Hepatic encephalopathy. SECONDARY DIAGNOSES: 1. Abdomen pain probably related to chronic urologic issues. 2. Type 2 diabetes. 3. History of psychiatric illness. HISTORY: Steff Callahan is a 64-year-old with history of cirrhosis admitted with hepatic encephalopathy secondary to noncompliance with her lactulose and rifaximin. Details are in history and physical from admission HOSPITAL COURSE: The patient was admitted to a medical bed. She was restarted on rifaximin and placed on increasing doses of lactulose. Clinically, she had a good response after a few days. Her asterixis resolved. Mental status returned to baseline. Her ammonia has been slow to come down but it fell from 129 to the 90s where it stayed; clinically she was not encephalopathic the last half of her hospitalization. She had an episode of left-sided abdominal pain. We did an ultrasound. It showed chronic hydronephrosis but no acute process. Her pain resolved after a day. There was no ascites present. Her diabetes remained under good control on sliding scale insulin. Blood sugars all below 200. On the day of discharge, she is resting comfortably. She is alert and conversant. Recognizes me immediately. She has been walking in the hallway as well. She has no asterixis on exam. Answers and questions are quick and goal appropriate. Coordination normal. [id number] testing and gait normal. Lungs clear. Heart regular rate and rhythm. Abdomen soft, nontender. No ascites. No peripheral edema. Labs today, sodium is 144, potassium 3.7, BUN 8, creatinine 0.5, and glucose 163. Ammonia is 96. White count 5, hemoglobin 13, platelets 145. DISPOSITION: She is discharged home improved and stable condition. The ammonia remains elevated. She clinically is no longer encephalopathic, so stable for discharge. She will followup with her primary care provider in a week. Activity as tolerated, 2 gram sodium diet. Fluid restriction of 2 liters per day. She is discharged on: - albuterol 2 puffs every 4 hours as needed - anastrozole 1 mg daily - Wellbutrin XL 300 mg daily - calcium with vitamin D - cetirizine 10 mg daily - vitamin B12 500 mcg daily - Voltaren gel to her knee as needed - dicyclomine 10 mg twice a day as needed - duloxetine 60 mg nightly - fluticasone/salmeterol 113-14 one inhalation twice a day - gabapentin 400 mg three times a day - glipizide dose reduced to 5 mg twice a day - lactulose dose increased to 60 mL three times a day - MagOx 500 mg twice a day - metformin 1000 mg twice a day - multivitamin - Zofran 4 mg every 6 hours as needed - oxybutynin ER 5 mg daily - Protonix 40 mg daily - potassium chloride 20 mEq daily - propranolol ER 60 mg daily - ranitidine 150 mg daily - rifaximin 550 mg twice a day At the time of this dictation there were no pending labs.
== END 2019-08-15 13:03 | disposition home or self-care (01) | DRG 279 ==
LOC: M ED 16:52 → M ED INP 16:53 → M MS4PR 21:12 → M MSPAV 08-11 15:24 → OBSVTOIN 08-14 07:35
PROVIDERS: ADMIT Internal Medicine; ATTEND Family Medicine
DX: K72.90 Hepatic failure, unspecified without coma (principal); E11.40 Type 2 diabetes mellitus with diabetic neuropathy, unspecified; K76.6 Portal hypertension; D69.6 Thrombocytopenia, unspecified; N13.30 Unspecified hydronephrosis; K75.81 Nonalcoholic steatohepatitis (NASH); R41.82 Altered mental status, unspecified; Z98.84 Bariatric surgery status; J45.20 Mild intermittent asthma, uncomplicated; G47.33 Obstructive sleep apnea (adult) (pediatric); M54.5 Low back pain; F29 Unspecified psychosis not due to a substance or known physiological condition; E55.9 Vitamin D deficiency, unspecified; I10 Essential (primary) hypertension; R10.32 Left lower quadrant pain; M54.2 Cervicalgia; Z79.84 Long term (current) use of oral hypoglycemic drugs; K21.9 Gastro-esophageal reflux disease without esophagitis; Z79.899 Other long term (current) drug therapy; Z85.3 Personal history of malignant neoplasm of breast; Z98.1 Arthrodesis status; Z90.49 Acquired absence of other specified parts of digestive tract; Z87.891 Personal history of nicotine dependence; Z91.14 Patient's other noncompliance with medication regimen; K74.60 Unspecified cirrhosis of liver

== ENCOUNTER → 2019-08-24 | Outpatient (CLI) | payer OTHER ==
[~2019-08-24] MED LIST changes: +CLIN1LOT TOP; +FLUT1INH2 INH; +GLIP5TAB8 PO; +KETO2SHA9 TOP; +Lactulose Syrup PO; +MED REC COMMENT; +VOLT1GEL15 TOP
[2019-08-24 11:36] LABS: BASO % 0.7 % (0.0-1.0); EOS # 0.5 10^3/uL (0.0-0.5); EOS % 9.3 % (0.0-3.0); HEMATOCRIT 39.5 % (36.0-47.0); HEMOGLOBIN 13.1 g/dl (12.0-15.5); LYMPH # 1.6 10^3/uL (1.5-5.0); LYMPH % 30.5 % (24.0-44.0); MEAN CORPUSCULAR HEMOGLOBIN 32.4 pg (27.0-33.0); MEAN CORPUSCULAR HGB CONC 33.2 g/dl (32.0-36.5); MEAN CORPUSCULAR VOLUME 97.8 fl (80.0-96.0); MONO # 0.4 10^3/uL (0.0-0.8); MONO % 8.2 % (0.0-5.0); NEUTROPHILS # 2.7 10^3/uL (1.5-8.5); NEUTROPHILS % 51.1 % (36.0-66.0); PLATELET COUNT, AUTOMATED 129 10^3/uL (150-450); RED BLOOD COUNT 4.04 10^6/uL (4.00-5.40); WHITE BLOOD COUNT 5.4 10^3/uL (4.0-10.0)
[2019-08-24 12:07] LABS: ALBUMIN 3.2 GM/DL (3.2-5.2); ALT/SGPT 56 U/L (12-78); BILIRUBIN,TOTAL 0.7 MG/DL (0.2-1.0); BLOOD UREA NITROGEN 10 MG/DL (7-18); CALCIUM LEVEL 8.6 MG/DL (8.8-10.2); CARBON DIOXIDE LEVEL 30 MEQ/L (21-32); CHLORIDE LEVEL 109 MEQ/L (98-107); CREATININE FOR GFR 0.61 MG/DL (0.55-1.30); FREE T4 0.61 NG/DL (0.76-1.46); GLOMERULAR FILTRATION RATE > 60.0 (>45); GLUCOSE, FASTING 158 MG/DL (70-100); POTASSIUM SERUM 3.9 MEQ/L (3.5-5.1); SODIUM LEVEL 144 MEQ/L (136-145); TOTAL PROTEIN 7.5 GM/DL (6.4-8.2)
== END ==
LOC: M LAB 11:08
PROVIDERS: ATTEND Physician Assistant
DX: I10 Essential (primary) hypertension (principal); E11.9 Type 2 diabetes mellitus without complications; K72.90 Hepatic failure, unspecified without coma

== ENCOUNTER → 2019-09-07 | Outpatient (CLI) | payer OTHER ==
[~2019-09-07] MED LIST changes: -BUPR300T34 PO; +BUPR300T92 PO; +OXYB-54; +OXYB-54 PO; -OXYB5TAB3; -OXYB5TAB3 PO
[2019-09-07 14:13] LABS: PLATELET COUNT, AUTOMATED 135 10^3/uL (150-450)
[2019-09-07 14:22] LABS: INR 1.2; PROTHROMBIN TIME 14.9 SECONDS (11.8-14.0)
[2019-09-07 14:23] LABS: PARTIAL THROMBOPLASTIN TIME 36.1 SECONDS (25.0-38.4)
== END ==
LOC: M LAB 13:20
PROVIDERS: ATTEND Physician Assistant
DX: Z01.818 Encounter for other preprocedural examination (principal)

== ENCOUNTER → 2019-09-21 | Outpatient (CLI) | payer OTHER ==
--- NOTE | 2019-09-23 08:44 | SLEEPCENT ---
DATE OF PROCEDURE: 09/21/2019 ORDERED BY: Yissel Oseguera NP Nocturnal polysomnography was performed for the titration of pressure therapy in this patient with obstructive sleep apnea syndrome, currently using bilevel pressure therapy. For testing, a ResMed Air Fit F30 full face mask of small size was used. Initial bilevel pressure of 8/4 was applied to the circuit and the lights were extinguished. 7 hours and 55 minutes of data were reviewed. There were 421 minutes of sleep identified. Sleep latency was mildly prolonged at 16 minutes. REM latency more so prolonged at 166 minutes. Sleep architecture improved with optimal pressure therapy. There two REM cycles appreciated. Overall sleep efficiency was 89.5%. The patient's electrocardiogram showed a sinus rhythm with average heart rate of 58 beats per minute. Occasional PVCs. EEG showed fairly normal waveforms for awake and sleep. Persistence of respiratory events prompted an increase in pressure therapy. Optimal sleep was seen on inspiratory pressure 14 over expiratory of 10. There was some persistent activity in the limb leads but limb movement arousal index was 6. IMPRESSION: Obstructive sleep apnea syndrome (G47.33). RECOMMENDATIONS: Nightly use of pressure therapy delivered from a bilevel device inspiratory 14 over expiratory 10.
== END ==
LOC: M SLEEP 19:27
PROVIDERS: ATTEND Nurse Practitioner Adult Health
DX: G47.33 Obstructive sleep apnea (adult) (pediatric) (principal)

== ENCOUNTER → 2019-10-23 | Outpatient (CLI) | payer OTHER ==
[~2019-10-23] MED LIST changes: -IRBE300T10 PO; +IRBE300T7 PO; -MONT10TA2 PO; +MONT10TA4 PO
[2019-10-23 09:56] LABS: BASO # 0.1 10^3/uL (0.0-0.2); BASO % 1.2 % (0.0-1.0); EOS # 0.4 10^3/uL (0.0-0.5); EOS % 7.5 % (0.0-3.0); HEMATOCRIT 37.9 % (36.0-47.0); HEMOGLOBIN 13.1 g/dl (12.0-15.5); LYMPH # 1.6 10^3/uL (1.5-5.0); LYMPH % 32.2 % (24.0-44.0); MEAN CORPUSCULAR HEMOGLOBIN 33.9 pg (27.0-33.0); MEAN CORPUSCULAR HGB CONC 34.6 g/dl (32.0-36.5); MEAN CORPUSCULAR VOLUME 98.2 fl (80.0-96.0); MONO # 0.4 10^3/uL (0.0-0.8); MONO % 8.5 % (0.0-5.0); NEUTROPHILS # 2.5 10^3/uL (1.5-8.5); NEUTROPHILS % 50.4 % (36.0-66.0); PLATELET COUNT, AUTOMATED 147 10^3/uL (150-450); RED BLOOD COUNT 3.86 10^6/uL (4.00-5.40); WHITE BLOOD COUNT 4.9 10^3/uL (4.0-10.0)
[2019-10-23 09:57] LABS: HEMATOCRIT 37.9 % (36.0-47.0)
[2019-10-23 10:15] LABS: ALBUMIN 3.2 GM/DL (3.2-5.2); ALT/SGPT 50 U/L (12-78); BILIRUBIN,TOTAL 0.8 MG/DL (0.2-1.0); BLOOD UREA NITROGEN 11 MG/DL (7-18); CALCIUM LEVEL 8.8 MG/DL (8.8-10.2); CARBON DIOXIDE LEVEL 28 MEQ/L (21-32); CHLORIDE LEVEL 114 MEQ/L (98-107); FERRITIN 35 NG/ML (8-252); GLOMERULAR FILTRATION RATE > 60.0 (>45); GLUCOSE, FASTING 103 MG/DL (70-100); POTASSIUM SERUM 3.7 MEQ/L (3.5-5.1); SODIUM LEVEL 146 MEQ/L (136-145); TOTAL PROTEIN 6.9 GM/DL (6.4-8.2)
[2019-10-24 09:40] LABS: FOLATE > 24.0 NG/ML; TOTAL 25(OH) VITAMIN D 42.7 NG/ML (30.0-100.0); VITAMIN B12 LEVEL 1436 PG/ML
== END ==
LOC: M LAB 08:23
PROVIDERS: ATTEND Family Medicine
DX: I10 Essential (primary) hypertension (principal)

== ENCOUNTER → 2019-11-04 | Outpatient (CLI) | payer OTHER ==
[2019-11-04 11:47] LABS: INR 1.17; PROTHROMBIN TIME 14.7 SECONDS (11.8-14.0)
== END ==
LOC: M LAB 11:08
PROVIDERS: ATTEND Physician Assistant
DX: K74.60 Unspecified cirrhosis of liver (principal)

== ENCOUNTER → 2020-01-23 | Outpatient (CLI) | payer OTHER ==
[~2020-01-23] MED LIST changes: +CYCL-707 PO; -CYCL10TA PO; +KETO2SHA8 TOP; -KETO2SHA9 TOP; -METF-791 PO; +METF-838 PO; +VITS56.7 TOP; -[UNRECOGNIZED DRUG - OTHER] TOP
[2020-01-23 13:29] LABS: BASO # 0.1 10^3/uL (0.0-0.2); BASO % 2.1 % (0.0-1.0); EOS # 0.6 10^3/uL (0.0-0.5); EOS % 11.8 % (0.0-3.0); HEMATOCRIT 39.4 % (36.0-47.0); HEMOGLOBIN 13.7 g/dl (12.0-15.5); LYMPH # 1.4 10^3/uL (1.5-5.0); LYMPH % 26.1 % (24.0-44.0); MEAN CORPUSCULAR HEMOGLOBIN 34.1 pg (27.0-33.0); MEAN CORPUSCULAR HGB CONC 34.8 g/dl (32.0-36.5); MONO # 0.5 10^3/uL (0.0-0.8); MONO % 9.3 % (0.0-5.0); NEUTROPHILS # 2.6 10^3/uL (1.5-8.5); NEUTROPHILS % 50.5 % (36.0-66.0); PLATELET COUNT, AUTOMATED 161 10^3/uL (150-450); RED BLOOD COUNT 4.02 10^6/uL (4.00-5.40); WHITE BLOOD COUNT 5.2 10^3/uL (4.0-10.0)
[2020-01-23 13:52] LABS: ALBUMIN 3.4 GM/DL (3.2-5.2); ALT/SGPT 47 U/L (12-78); BILIRUBIN,TOTAL 0.7 MG/DL (0.2-1.0); BLOOD UREA NITROGEN 14 MG/DL (7-18); CALCIUM LEVEL 8.9 MG/DL (8.8-10.2); CARBON DIOXIDE LEVEL 28 MEQ/L (21-32); CHLORIDE LEVEL 114 MEQ/L (98-107); CHOLESTEROL LEVEL 128 MG/DL (<200); CHOLESTEROL RISK RATIO 2.064 (<5); FREE T4 0.71 NG/DL (0.76-1.46); GLOMERULAR FILTRATION RATE > 60.0 (>45); GLUCOSE, FASTING 161 MG/DL (70-100); HDL CHOLESTEROL 62 MG/DL (>40); LDL CHOLESTEROL 56 MG/DL (<100); NON-HDL-C 66 MG/DL; POTASSIUM SERUM 4.1 MEQ/L (3.5-5.1); SODIUM LEVEL 148 MEQ/L (136-145); TOTAL PROTEIN 7.5 GM/DL (6.4-8.2); TRIGLYCERIDES LEVEL 51 MG/DL (<150)
[2020-01-23 14:40] LABS: HEMOGLOBIN A1c 6.9 %
== END ==
LOC: M PLALAB 11:04
PROVIDERS: ATTEND Physician Assistant
DX: E11.9 Type 2 diabetes mellitus without complications (principal); I10 Essential (primary) hypertension; G93.41 Metabolic encephalopathy

== ENCOUNTER → 2020-02-10 | Outpatient (CLI) | payer OTHER ==
[~2020-02-10] MED LIST changes: +HYDR-3713; -LACT10SO29 PO; +LACT20EL PO; +MONT10TA10 PO; -MONT10TA4 PO; +OXYC1TAB23 PO; -PANT20TA2; +PANT20TA6; +PANT40TA29 PO; -PANT40TA3 PO; +PERC5TAB12 PO; +XARE10TA PO
[2020-02-10 07:21] LABS: BASO # 0.1 10^3/uL (0.0-0.2); EOS # 0.7 10^3/uL (0.0-0.5); EOS % 11.1 % (0.0-3.0); HEMATOCRIT 38.1 % (36.0-47.0); HEMOGLOBIN 12.9 g/dl (12.0-15.5); LYMPH # 1.8 10^3/uL (1.5-5.0); LYMPH % 30.5 % (24.0-44.0); MEAN CORPUSCULAR HEMOGLOBIN 33.3 pg (27.0-33.0); MEAN CORPUSCULAR HGB CONC 33.9 g/dl (32.0-36.5); MEAN CORPUSCULAR VOLUME 98.4 fl (80.0-96.0); MONO # 0.5 10^3/uL (0.0-0.8); MONO % 8.6 % (0.0-5.0); NEUTROPHILS # 2.9 10^3/uL (1.5-8.5); NEUTROPHILS % 48.6 % (36.0-66.0); PLATELET COUNT, AUTOMATED 142 10^3/uL (150-450); RED BLOOD COUNT 3.87 10^6/uL (4.00-5.40)
[2020-02-10 07:30] LABS: INR 1.14; PROTHROMBIN TIME 14.3 SECONDS (11.8-14.0)
== END ==
LOC: M LAB 07:00
PROVIDERS: ATTEND Family Medicine
DX: K02.9 Dental caries, unspecified (principal)

== ENCOUNTER → 2020-02-17 | Outpatient (CLI) | payer OTHER ==
[~2020-02-17] MED LIST changes: -HYDR-3713; -MONT10TA10 PO; +MONT10TA4 PO; -OXYC1TAB23 PO; +PANT20TA2; -PANT20TA6; -PANT40TA29 PO; +PANT40TA3 PO; -PERC5TAB12 PO; -XARE10TA PO
--- NOTE | 2020-02-17 14:03 | REPMRS ---
Patient History The patient states she had a clinical breast exam in February 2019.. Family history of colorectal cancer at age 50 or over in father. Malignant radio exam breast specimen of the left breast, May 09, 2014. Malignant stereotatic loc for ea lesion of the left breast, May 09, 2014. Digital Woman Screen Mammo: February 17, 2020 - Exam #: [id number] Bilateral CC and MLO view(s) were taken. Technologist: Stephanie Espinoza, Technologist Prior study comparison: February 16, 2019, [facility] February 03, 2018, bilateral digital [facility] screening bilat[facility]. December 24, 2016, bilateral digital mammo screening bilat[facility]. FINDINGS: The breast tissue is heterogeneously dense. This may lower the sensitivity of mammography. The Volpara volumetric breast density category is: C. Stable post-treatment changes are noted on the left. There is a moderate amount of heterogeneously dense fibroglandular tissue which is fairly symmetric. There is no interval development of dominant mass, architectural distortion, or grouped microcalcification typical of malignancy. There has been no change in the appearance of the mammogram from the prior studies. 3-D tomosynthesis shows no additional findings. Assessment: BI-RADS/ACR category 2 mammogram. Benign Findings. Recommendation Routine screening mammogram of both breasts in 1 year (for women over age 40). This mammogram was interpreted with the aid of an FDA-approved computer-aided dectection system. Electronically Signed By: Casimiro Jett MD 02/17/20 [id number]
== END ==
LOC: M WHC 13:09
PROVIDERS: ATTEND Surgery
DX: Z12.31 Encounter for screening mammogram for malignant neoplasm of breast (principal); Z85.3 Personal history of malignant neoplasm of breast

== ENCOUNTER → 2020-02-28 | Outpatient (CLI) | payer OTHER ==
[~2020-02-28] MED LIST changes: +OXYC1TAB23 PO; -PANT20TA2; +PANT20TA6; +PANT40TA29 PO; -PANT40TA3 PO; +PERC5TAB12 PO; +XARE10TA PO
--- NOTE | 2020-02-28 13:42 | REP ---
REASON: Cirrhosis. The patient is status post cholecystectomy. The common bile duct measures 4 mm. There is a coarsened echotexture to the hepatic parenchyma. There is a nodular hepatic surface. No masses are identified. The imaged portion of the pancreas is within normal limits. The imaged portion of the right kidney shows an echogenic focus measuring 5 mm casting a slight acoustic shadow. There is no hydronephrosis. There is no free fluid. IMPRESSION: 1. Cirrhotic features to the liver as described above. 2. Possible right renal calculus CT without contrast recommended. Electronically Signed by Dionisio Coulter DO 02/28/2020 05:25 P
== END ==
LOC: M RAD 08:10
PROVIDERS: ATTEND Physician Assistant
DX: K74.60 Unspecified cirrhosis of liver (principal); Z90.49 Acquired absence of other specified parts of digestive tract

== ENCOUNTER → 2020-03-15 | Outpatient (CLI) | payer OTHER ==
[~2020-03-15] MED LIST changes: -PERC5TAB12 PO; -XARE10TA PO
== END ==
LOC: M LABSMTC 10:25
PROVIDERS: ATTEND Physical Medicine & Rehabilitation
DX: Z11.59 Encounter for screening for other viral diseases (principal)

== ENCOUNTER → 2020-04-21 | Outpatient (CLI) | payer OTHER ==
[~2020-04-21] MED LIST changes: +PERC5TAB12 PO; +XARE10TA PO
[2020-04-21 12:17] LABS: PLATELET COUNT, AUTOMATED 162 10^3/uL (150-450)
[2020-04-21 12:30] LABS: INR 1.1; PROTHROMBIN TIME 14.5 SECONDS (11.8-14.0)
[2020-04-21 12:31] LABS: PARTIAL THROMBOPLASTIN TIME 35.6 SECONDS (25.0-38.4)
== END ==
LOC: M LAB 10:44
PROVIDERS: ATTEND Physician Assistant
DX: M51.26 Other intervertebral disc displacement, lumbar region (principal)

== ENCOUNTER → 2020-04-21 | Outpatient (CLI) | payer OTHER | LOC: M LABSMTC 09:54 | PROVIDERS: ATTEND Physical Medicine & Rehabilitation | DX: Z20.828 Contact with and (suspected) exposure to other viral communicable diseases (principal) | CPT/HCPCS: C9803; U0003 ==

== ENCOUNTER → 2020-04-26 | Outpatient (CLI) | payer OTHER ==
[2020-04-26 15:16] LABS: BASO # 0.1 10^3/uL (0.0-0.2); BASO % 1.2 % (0.0-1.0); EOS # 0.6 10^3/uL (0.0-0.5); EOS % 10.2 % (0.0-3.0); HEMATOCRIT 41.8 % (36.0-47.0); HEMOGLOBIN 14.1 g/dl (12.0-15.5); LYMPH # 1.7 10^3/uL (1.5-5.0); LYMPH % 28.8 % (24.0-44.0); MEAN CORPUSCULAR HEMOGLOBIN 33.7 pg (27.0-33.0); MEAN CORPUSCULAR HGB CONC 33.7 g/dl (32.0-36.5); MEAN CORPUSCULAR VOLUME 99.8 fl (80.0-96.0); MONO # 0.4 10^3/uL (0.0-0.8); MONO % 7.5 % (0.0-5.0); NEUTROPHILS # 3.1 10^3/uL (1.5-8.5); NEUTROPHILS % 52.1 % (36.0-66.0); PLATELET COUNT, AUTOMATED 182 10^3/uL (150-450); RED BLOOD COUNT 4.19 10^6/uL (4.00-5.40); WHITE BLOOD COUNT 5.9 10^3/uL (4.0-10.0)
[2020-04-26 15:47] LABS: ALBUMIN 3.8 GM/DL (3.2-5.2); ALT/SGPT 43 U/L (12-78); BILIRUBIN,TOTAL 0.8 MG/DL (0.2-1.0); BLOOD UREA NITROGEN 11 MG/DL (7-18); CALCIUM LEVEL 9.2 MG/DL (8.8-10.2); CARBON DIOXIDE LEVEL 26 MEQ/L (21-32); CHLORIDE LEVEL 109 MEQ/L (98-107); CREATININE FOR GFR 0.76 MG/DL (0.55-1.30); FERRITIN 30 NG/ML (8-252); GLOMERULAR FILTRATION RATE > 60.0 (>45); GLUCOSE, FASTING 214 MG/DL (70-100); IRON (FE) 124 UG/DL (50-170); POTASSIUM SERUM 4.2 MEQ/L (3.5-5.1); SODIUM LEVEL 140 MEQ/L (136-145); TOTAL PROTEIN 7.8 GM/DL (6.4-8.2)
[2020-04-26 15:48] LABS: TOTAL 25(OH) VITAMIN D 37.2 NG/ML (30.0-100.0); VITAMIN B12 LEVEL 1823 PG/ML (247-911)
[2020-04-26 18:25] LABS: HEMOGLOBIN A1c 6.6 %
== END ==
LOC: M PLALAB 13:56
PROVIDERS: ATTEND Family Medicine
DX: I10 Essential (primary) hypertension (principal); G93.41 Metabolic encephalopathy; E11.9 Type 2 diabetes mellitus without complications; Z98.84 Bariatric surgery status

== ENCOUNTER → 2020-05-31 | Outpatient (CLI) | payer OTHER ==
[2020-05-31 16:18] LABS: HEMATOCRIT 40.2 % (36.0-47.0); HEMOGLOBIN 14.1 g/dl (12.0-15.5); MEAN CORPUSCULAR HEMOGLOBIN 33.7 pg (27.0-33.0); MEAN CORPUSCULAR HGB CONC 35.1 g/dl (32.0-36.5); MEAN CORPUSCULAR VOLUME 96.2 fl (80.0-96.0); PLATELET COUNT, AUTOMATED 167 10^3/uL (150-450); RED BLOOD COUNT 4.18 10^6/uL (4.00-5.40); WHITE BLOOD COUNT 6.2 10^3/uL (4.0-10.0)
[2020-05-31 16:24] LABS: INR 1.03; PROTHROMBIN TIME 13.7 SECONDS (12.5-14.3)
[2020-05-31 16:41] LABS: ALBUMIN 3.3 GM/DL (3.2-5.2); ALT/SGPT 36 U/L (12-78); BILIRUBIN,TOTAL 0.7 MG/DL (0.2-1.0); BLOOD UREA NITROGEN 12 MG/DL (7-18); CALCIUM LEVEL 9.3 MG/DL (8.8-10.2); CARBON DIOXIDE LEVEL 29 MEQ/L (21-32); CHLORIDE LEVEL 108 MEQ/L (98-107); CREATININE FOR GFR 0.64 MG/DL (0.55-1.30); GLOMERULAR FILTRATION RATE > 60.0 (>45); GLUCOSE, FASTING 116 MG/DL (70-100); SODIUM LEVEL 141 MEQ/L (136-145); TOTAL PROTEIN 7.3 GM/DL (6.4-8.2)
== END ==
LOC: M LAB 15:15
PROVIDERS: ATTEND Physician Assistant
DX: K74.60 Unspecified cirrhosis of liver (principal); G93.40 Encephalopathy, unspecified

== ENCOUNTER → 2020-05-31 | Outpatient (CLI) | payer OTHER ==
[2020-05-31 16:26] LABS: BLOOD UREA NITROGEN 12 MG/DL (7-18); CREATININE FOR GFR 0.69 MG/DL (0.55-1.30); GLOMERULAR FILTRATION RATE > 60.0 (>45)
== END ==
LOC: M LAB 15:12
PROVIDERS: ATTEND Physical Medicine & Rehabilitation
DX: M51.37 Other intervertebral disc degeneration, lumbosacral region (principal)

== ENCOUNTER → 2020-06-24 | Outpatient (CLI) | payer OTHER ==
[~2020-06-24] MED LIST changes: -PERC5TAB12 PO; -XARE10TA PO
[2020-06-24 11:27] LABS: HEMATOCRIT 39.7 % (36.0-47.0); HEMOGLOBIN 13.8 g/dl (12.0-15.5); MEAN CORPUSCULAR HEMOGLOBIN 33.7 pg (27.0-33.0); MEAN CORPUSCULAR HGB CONC 34.8 g/dl (32.0-36.5); MEAN CORPUSCULAR VOLUME 97.1 fl (80.0-96.0); PLATELET COUNT, AUTOMATED 164 10^3/uL (150-450); RED BLOOD COUNT 4.09 10^6/uL (4.00-5.40); WHITE BLOOD COUNT 4.6 10^3/uL (4.0-10.0)
[2020-06-24 11:38] LABS: INR 1.12; PROTHROMBIN TIME 14.7 SECONDS (12.5-14.3)
[2020-06-24 12:10] LABS: ALBUMIN 3.5 GM/DL (3.2-5.2); ALT/SGPT 38 U/L (12-78); BILIRUBIN,TOTAL 0.8 MG/DL (0.2-1.0); BLOOD UREA NITROGEN 11 MG/DL (7-18); CARBON DIOXIDE LEVEL 28 MEQ/L (21-32); CHLORIDE LEVEL 112 MEQ/L (98-107); CREATININE FOR GFR 0.74 MG/DL (0.55-1.30); GLOMERULAR FILTRATION RATE > 60.0 (>45); GLUCOSE, FASTING 157 MG/DL (70-100); POTASSIUM SERUM 4.6 MEQ/L (3.5-5.1); SODIUM LEVEL 144 MEQ/L (136-145); TOTAL PROTEIN 7.4 GM/DL (6.4-8.2)
[2020-06-24 12:13] LABS: ERYTHROCYTE SEDIMENTATION RATE 32 mm/hr (0-30)
--- NOTE | 2020-06-24 12:46 | REP ---
INDICATION: PRE OP. No acute disease. COMPARISON: Comparison chest x-ray August 10, 2019. TECHNIQUE: Two views.. FINDINGS: The lungs are well inflated and free of infiltrate. The pleural angles are sharp. The heart size is normal. Pulmonary vasculature is not increased. No significant bony abnormality is seen. There is ventral discectomy infusion plating visible in the the lower cervical spine. Degenerative disc changes are noted in the thoracic spine. IMPRESSION: Negative chest x-ray. <Electronically signed by Casimiro Jett > 06/24/20 [id number]
--- NOTE | 2020-06-24 13:49 | ECGEPIP ---
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 No significant change from 08/10/19. Electronically Signed on 06-24-2020 13:49:13 EST by Gorge Wade
== END ==
LOC: M LAB 10:46
PROVIDERS: ATTEND Orthopaedic Surgery
DX: Z01.818 Encounter for other preprocedural examination (principal); M17.11 Unilateral primary osteoarthritis, right knee; I45.10 Unspecified right bundle-branch block; R94.31 Abnormal electrocardiogram [ECG] [EKG]

== ENCOUNTER → 2020-06-30 | Outpatient (CLI) | payer OTHER | LOC: M LABSMTC 12:10 | PROVIDERS: ATTEND Anesthesiology | DX: Z01.818 Encounter for other preprocedural examination (principal); Z20.828 Contact with and (suspected) exposure to other viral communicable diseases | CPT/HCPCS: C9803; U0003 ==

== ENCOUNTER 2020-07-05 09:30 | Inpatient (IN) | payer OTHER ==
--- NOTE | 2020-07-03 07:07 | HPE ---
DATE OF ANTICIPATED ADMISSION: 07/05/2020 ATTENDING PHYSICIAN: Twin Falcon M.D. CHIEF COMPLAINT: Right knee pain and stiffness. HISTORY: This is a 65-year-old female patient with progressively worsening knee pain and stiffness on the right side. She has failed to improve with conservative management. She has pain with weightbearing activities and activities of daily living. She has elected for surgery for continued symptoms. She has been consented by Dr. Falcon for a right total knee arthroplasty. X-rays notable for end-stage degenerative changes of the right knee. Medical optimization with Dr. Paz, not present for review. ALLERGIES: GABAPENTIN. CURRENT MEDICATIONS: * Pantoprazole 20 mg, 1 tablet once a day. * Bupropion extended release 300 mg, 1 tablet once a day. * Duloxetine 60 mg, 1 tablet once a day. * Potassium chloride extended release 20 mEq as directed by her primary. * Zantac 150 mg p.r.n. * Metformin 500 mg extended release as directed. * Glipizide 5 mg daily. * Spironolactone 25 mg daily. * Propranolol extended release 60 mg, 1 tablet once a day. * Dicyclomine 10 mg p.r.n. for spasms. * Tolterodine extended release 4 mg. * She also uses insulin on a sliding scale. MEDICAL CONDITIONS: Include: 1. Insulin dependent diabetes. 2. Hypertension. 3. Liver disease. 4. Anxiety and depression. 5. Symptomatic osteoarthritis of the right knee. SURGICAL HISTORY: Includes: 1. Anterior cervical decompression and fusion at C5-6, C6-7. 2. D&C. 3. Lap band surgery. 4. Carpal tunnel release bilaterally. 5. Knee scopes bilaterally. 6. Breast lumpectomy. 7. Gallbladder removed. 8. Bilateral rotator cuff repair. FAMILY HISTORY: Heart disease, arthritis, elevated cholesterol, hypertension, colon cancer, lung cancer. SOCIAL HISTORY: She does not currently smoke. She does not use alcohol. She is retired. REVIEW OF SYSTEMS: Denies fever or chills. Denies chest pain, shortness of breath or cough. Denies difficulty breathing. Denies abdominal pain. Denies nausea or vomiting. Denies exposure to COVID-19. Denies any current respiratory conditions. Has persistent pain in her right knee with weightbearing activities and activities of daily living. PHYSICAL EXAMINATION: Exam today reveals a patient that ambulates with a limping gait. She favors her right side. Exam of the right knee does reveal skin to be intact, no erythema, edema or ecchymosis. Tenderness both medially and laterally. Range of motion: She lacks about 5 degrees of complete extension. She can flex past 90. The calf is soft, nontender to palpation, well perfused right lower extremity. She can sensate light touch. Dorsalis pedis and posterior tibial pulses are palpable. No irritability with hip range of motion. Neck: Supple without adenopathy or JVD. Lungs: Clear to auscultation without rales or wheeze. Heart: Regular rate and rhythm. Abdomen: Bowel sounds are present. LABORATORY DATA: WBC count 4.6, RBC count 4.9, hemoglobin 13.8, hematocrit 39.7, sedimentation rate 32. ProTime 14.7, INR 1.12. Glucose 157, BUN 11, creatinine 0.74, sodium 144, potassium 4.6. IMAGING: Chest x-ray: No acute cardiopulmonary disease process noted. EKG: Sinus rhythm. IMPRESSION: Symptomatic osteoarthritis of the right knee. PLAN: She has been consented by Dr. Falcon for a right total knee arthroplasty. We went over her medications. We discussed that she should only take the medications as directed by her primary and avoid NSAIDs 5 days prior to surgery. We went over pre-operative and post-operative instructions. We went over n.p.o. and what n.p.o. means. We went over her arrival time and the need to be on time. All of her questions were answered. CHETNA
[~2020-07-05] VITALS: Ht 175.3 cm; Wt 98.9 kg
[~2020-07-05 09:30] MED LIST changes: +LR 1,000 ML IV ONE; +ceFAZolin SOD 2 GM in IV 1 EA IV ONE; +fentaNYL 100 MCG/2 ML INJECTION (J3010) IV SCH
[2020-07-05] MEDS ORDERED: ceFAZolin 2 GM/D5W 50 ML IV BAG (J0690 PER 500MG) As Ordered ONE (11:47)
[2020-07-05] MEDS ORDERED: MIDAZOLAM INJ 2MG/2ML VIAL (J2250 PER 1MG) As Ordered ONE ×2 (12:11→12:55)
[2020-07-05] MEDS ORDERED: propofoL 500 MG/50 ML VIAL As Ordered ONE (12:11)
[2020-07-05] MEDS ORDERED: fentaNYL 100 MCG/2 ML INJECTION (J3010) As Ordered ONE ×2 (12:11→12:55)
[2020-07-05] MEDS ORDERED: LIDOCAINE 2% 100MG/5ML SDV (FOR ANES.) As Ordered ONE (12:11)
[2020-07-05] MEDS ORDERED: propofoL 200 MG/20 ML VIAL As Ordered ONE (12:48)
[2020-07-05] MEDS: MIDAZOLAM INJ 2MG/2ML VIAL (J2250 PER 1MG) IV SCH ×2 (13:00→13:05)
[2020-07-05] MEDS ORDERED: TRANEXAMIC ACID 100 MG/ML 10ML VIAL As Ordered ONE (13:08)
[2020-07-05] MEDS ORDERED: BUPIVACAINE HCL 0.25% 10ML VIAL As Ordered ONE (13:08)
[2020-07-05] MEDS ORDERED: EPINEPHrine INJ 1 MG/ML 1ML AMP As Ordered ONE (13:09)
[2020-07-05] MEDS ORDERED: ceFAZolin 1GM VIAL (J0690 PER 500MG) As Ordered ONE (13:09)
[2020-07-05] MEDS ORDERED: BUPIVACAINE LIPOSOME/PF 1.3% 20ML VIAL (13.3MG/ML)(EXPAREL)(C9290 PER1MG) As Ordered ONE (13:09)
[2020-07-05] MEDS ORDERED: ROPIvacaine 0.5% 30ML INJECTION (J2795 PER 1MG) ONE (14:14)
[2020-07-05] MEDS ORDERED: EPINEPHrine INJ 1 MG/ML 1ML AMP ONE (14:14)
[2020-07-05] MEDS ORDERED: dexameTHASONE 10MG/1ML VIAL PRES.FREE (J1100 PER 1MG) ONE (14:14)
[2020-07-05] MEDS ORDERED: ONDANSETRON 4MG/2ML VIAL As Ordered ONE (15:12)
[2020-07-05] MEDS ORDERED: KETOROLAC 60MG 2ML VIAL As Ordered ONE (15:12)
[2020-07-05] MEDS ORDERED: fentaNYL 100 MCG/2 ML INJECTION (J3010) IV PRN (16:00)
[2020-07-05] MEDS ORDERED: METOCLOPRAMIDE INJ 10MG/2ML VIAL (J2765 PER 1) IV PRN (16:00)
[2020-07-05] MEDS ORDERED: ONDANSETRON 4MG/2ML VIAL IV PRN ×2 (16:00→16:15)
[2020-07-05] MEDS ORDERED: LR 1,000 ML IV SCH ×2 (16:00→16:15)
[2020-07-05] MEDS ORDERED: oxyCODONE 5MG TAB PO PRN (16:00)
[2020-07-05] MEDS ORDERED: MEPERIDINE INJ 25 MG/ML VIAL (J2175) IV PRN (16:00)
--- NOTE | 2020-07-05 16:09 | REP ---
INDICATION: POST OP IN PACU. COMPARISON: None. TECHNIQUE: Two-view portable FINDINGS: Skin jovi from surgery and subcutaneous air along with air in fluid in the knee joint present. There is been a right total knee arthroplasty with 3 components well aligned in relationship to the chinik bone and each other. IMPRESSION: Status post right total knee arthroplasty <Electronically signed by Timothy Kaur > 07/05/20 [id number]
[2020-07-05] MEDS ORDERED: MORPHINE 4 MG/ML 1ML VIAL/SYRINGE (J2270) IV PRN (16:15)
[2020-07-05] MEDS ORDERED: MORPHINE 2 MG/ML 1ML VIAL (J2270) IV PRN (16:15)
[2020-07-05] MEDS ORDERED: ACETAMINOPHEN TAB 650MG DOSE (2X325MG) PO PRN (16:15)
--- NOTE | 2020-07-05 16:15 | CR.PDOC ---
General Date of Consultation: Jul 05, 2020 Consultation REASON FOR CONSULTATION/CHIEF COMPLAINT: Consult from orthopedics for medical co-management HISTORY OF PRESENT ILLNESS: 65F with progressively worsening right knee pain and stiffness. She has failed to improve with conservative management. She has pain with weightbearing activities and activities of daily living. She has elected for surgery for continued symptoms. She has been consented by Dr. Falcon for a right total knee arthroplasty. X-rays notable for end-stage degenerative changes of the right knee. Medical optimization with Dr. Paz. Today she is POD #0 for right total knee arthroplasty. She voices no complaints other then some right knee pain. She denies chest pain, shortness of breath, headaches, N/V/D, abdominal pain. ALLERGIES: Please see below. HOME MEDICATIONS: Please see below. PAST MEDICAL HISTORY: #CANALES with cirrhosis #thrombocytopenia #portal hypertension #morbid obesity s/p gastric bypass surgery in 2018 #ALYSSA on BIPAP #IDDM #anxiety/depression #HTN #chronic LBP REVIEW OF SYSTEMS: Negative except as per HPI. PHYSICAL EXAMINATION: VITAL SIGNS: Please see below. GENERAL APPEARANCE: NAD HEENT: NC/AT, EOMI RESPIRATORY: CTA B/L CARDIOVASCULAR: +S1S2, RRR ABDOMEN: soft, NT, +BS LABORATORY DATA: Please see below. ASSESSMENT/PLAN: 65 yo female POD#0 right TKA, with extensive PMHx, consulted by orthopedics for medical co-management #right TKA - continue to follow as per primary team #DM - sliding scale insulin #HTN - continue home meds with hold parameters #anxiety/depression - continue home meds #cirrhosis/CANALES - continue home meds Thank you for this consultation. We will continue to follow. Vital Signs/I&O Vital Signs Date Time Temp Pulse Resp B/P (MAP) Pulse Ox O2 Delivery O2 Flow Rate FiO2 07/05/20 16:00 97.3 57 16 152/82 (105) 99 Nasal Cannula 2 Laboratory Data Labs 24H Laboratory Tests 2 07/05/20 12:38: Bedside Glucose (Misc Panel) 149H 07/05/20 12:39: Bedside Glucose (Misc Panel) 151H Allergies Coded Allergies: No Known Drug Allergies (Verified Allergy, Unknown, 06/27/20) Home Medications Scheduled Anastrozole (Anastrozole) 1 Mg Tablet, 1 MG PO DAILY, (Reported) Budesonide/Formoterol (Symbicort 160-4.5 Mcg Inhaler) 6 Gm Hfa.aer.ad, 2 PUFF INH BID, #10.6 (Reported) Bupropion HCl (Bupropion Xl) 300 Mg Tab.er.24h, 300 MG PO DAILY, (Reported) Calcium Carbonate/Vitamin D3 (Caltrate 600 + D Soft Chew Tab) 1 Each Tab.chew, 2 CHW PO QPM, (Reported) Cetirizine HCl (Cetirizine HCl) 10 Mg Tab, 10 MG PO DAILY, (Reported) Clindamycin Phosphate (Clindamycin Phosphate) 1% 60ML Lotion, 1 APLCT TOP DAILY, (Reported) APPLY TO BUTTOCKS Cyanocobalamin (Vitamin B-12) (Vitamin B-12) 500 Mcg Tablet, 500 MCG PO DAILY, (Reported) Cyclobenzaprine HCl (Cyclobenzaprine HCl) 10 Mg Tablet, 1 TAB PO QPM for muscle spasms for 30 Days, #30 (Reported) Dicyclomine HCl (Dicyclomine HCl) 10 Mg Capsule, 10 MG PO BID, (Reported) Duloxetine Hcl (Duloxetine HCl) 60 Mg Cap, 60 MG PO QHS, (Reported) Gabapentin (Gabapentin) 400 Mg Capsule, 100 MG PO BID, (Reported) Glipizide (Glipizide) 5 Mg Tablet, 5 MG PO BID for 30 Days, #60 Ketoconazole (Ketoconazole) 120 Ml Shampoo, 1 APLCT TOP 2XW, (Reported) with at least 3 days between each shampooing Lactulose (Lactulose) 10 Gm/15 Ml Solution, 45 ML PO TID for constipation, #2.7 (Reported) Magnesium Oxide (Magnesium Oxide) 500 Mg Tablet, 500 MG PO QPM, (Reported) Metformin HCl (Metformin HCl ER) 500 Mg Tab, 1,000 MG PO BID, (Reported) Montelukast Sodium (Singulair) 10 Mg Tablet, 10 MG PO DAILY for 30 Days, #30 (R eported) Multivitamins (Thera M Plus Tablet) 1 Each Tablet, 2 TAB PO DAILY, (Reported) Oxybutynin Chloride (Oxybutynin Chloride ER) 5 Mg Tab.er.24, 5 MG PO QPM, (Reported) Pantoprazole Sodium (Pantoprazole Sodium) 40 Mg Tablet.dr, 40 MG PO DAILY, (Reported) Potassium Chloride (Potassium Chloride) 20 Meq Tablet.er, 20 MEQ PO DAILY, (Reported) Propranolol HCl (Propranolol HCl ER) 60 Mg Cap.sa.24h, 60 MG PO DAILY, (Reported) Rifaximin (Xifaxan) 550 Mg Tablet, 550 MG PO BID, (Reported) Rivaroxaban (Xarelto) 10 Mg Tablet, 10 MG PO DAILY for 12 Days, #12 Spironolactone (Spironolactone) 25 Mg Tablet, 25 MG PO DAILY, (Reported) Scheduled PRN Acetaminophen (Acetaminophen) 500 Mg Tab, 1,000 MG PO Q6H PRN for PAIN, (Reported) Albuterol Sulfate (Proair Hfa) 8.5 Gm Hfa.aer.ad, 2 PUFF INH Q4H PRN for SHORTNESS OF BREATH, (Reported) Diclofenac Sodium (Voltaren) 100 Gm Gel..gram., 1 GRAM TOP QID PRN for KNEE PAIN, (Reported) apply to affected area(s) Oxycodone HCl/Acetaminophen (Oxycodone-Acetaminophen 5-325) 1 Each Tablet, 1 TAB PO BIDP PRN for pain for 30 Days, #60 (Reported) Oxycodone HCl/Acetaminophen (Percocet 5-325 mg Tablet) 1 Each Tablet, 1-2 TAB PO Q4H PRN for PAIN, #30 NILDA RICO MD Jul 05, 2020 16:15
[2020-07-05] MEDS ORDERED: GLUCOSE 4GM CHEW TABLET PO PRN (16:30)
[2020-07-05] MEDS ORDERED: GLUCAGON INJ 1MG VIAL SC PRN (16:30)
[2020-07-05] MEDS ORDERED: DEXTROSE 50% 50 ML SYRINGE IV PRN (16:30)
[2020-07-05] MEDS ORDERED: ALBUTEROL 90 MCG/ACT 8GM HFA INHALER INH PRN (16:30)
[2020-07-05 16:40] VITALS: BP 128/71
[2020-07-05 17:10] VITALS: BP 133/68
[2020-07-05 17:40] VITALS: BP 132/65
[2020-07-05] MEDS: HumaLOG INSULIN (NovoLOG) PER UNIT SC SCH (17:55)
[2020-07-05 18:01] LABS: HEMATOCRIT 36.8 % (36.0-47.0); HEMOGLOBIN 12.3 g/dl (12.0-15.5); MEAN CORPUSCULAR HEMOGLOBIN 32.7 pg (27.0-33.0); MEAN CORPUSCULAR HGB CONC 33.4 g/dl (32.0-36.5); MEAN CORPUSCULAR VOLUME 97.9 fl (80.0-96.0); PLATELET COUNT, AUTOMATED 125 10^3/uL (150-450); RED BLOOD COUNT 3.76 10^6/uL (4.00-5.40); WHITE BLOOD COUNT 4.7 10^3/uL (4.0-10.0)
[2020-07-05 18:40] VITALS: BP 122/63
[2020-07-05] MEDS ORDERED: DULoxetine 30 MG CAP (CYMBALTA) PO SCH (21:00)
[2020-07-05] MEDS ORDERED: HumaLOG INSULIN (NovoLOG) PER UNIT SC SCH (21:00)
[2020-07-05] MEDS: SYMBICORT 160/4.5MCG INHALER 6GM INH SCH (21:09)
[2020-07-05] MEDS: ceFAZolin SOD 2 GM in IV 1 EA IV SCH (21:31)
[2020-07-05] MEDS: GABAPENTIN 100 MG CAP PO SCH (21:32)
[2020-07-05] MEDS: DICYCLOMINE 10 MG CAP PO SCH (21:32)
[2020-07-05] MEDS: rifAXIMin 550 MG TAB (XIFAXAN) PO SCH (21:32)
[2020-07-05 21:39] VITALS: BP 125/65
[2020-07-05] MEDS: PERCOCET 5MG/325MG TAB PO PRN (23:06)
[2020-07-06 01:45] VITALS: BP 126/62
[2020-07-06] MEDS: PERCOCET 5MG/325MG TAB PO PRN ×2 (06:03→12:55)
[2020-07-06] MEDS: ceFAZolin SOD 2 GM in IV 1 EA IV SCH (06:04)
[2020-07-06] MEDS ORDERED: XARE10TA PO (06:35)
[2020-07-06] MEDS ORDERED: PERC5TAB12 PO (06:35)
[2020-07-06 06:41] VITALS: BP 118/61
[2020-07-06 06:48] LABS: BASO # 0.1 10^3/uL (0.0-0.2); BASO % 0.5 % (0.0-1.0); EOS % 0.1 % (0.0-3.0); HEMOGLOBIN 11.8 g/dl (12.0-15.5); LYMPH # 1.1 10^3/uL (1.5-5.0); LYMPH % 11.9 % (24.0-44.0); MEAN CORPUSCULAR HGB CONC 34.7 g/dl (32.0-36.5); MONO # 0.8 10^3/uL (0.0-0.8); MONO % 7.9 % (0.0-5.0); NEUTROPHILS # 7.5 10^3/uL (1.5-8.5); NEUTROPHILS % 79.4 % (36.0-66.0); PLATELET COUNT, AUTOMATED 160 10^3/uL (150-450); RED BLOOD COUNT 3.58 10^6/uL (4.00-5.40); WHITE BLOOD COUNT 9.5 10^3/uL (4.0-10.0)
[2020-07-06 07:10] LABS: ALBUMIN 2.9 GM/DL (3.2-5.2); ALT/SGPT 30 U/L (12-78); BILIRUBIN,TOTAL 0.7 MG/DL (0.2-1.0); BLOOD UREA NITROGEN 12 MG/DL (7-18); CALCIUM LEVEL 8.8 MG/DL (8.8-10.2); CARBON DIOXIDE LEVEL 25 MEQ/L (21-32); CHLORIDE LEVEL 110 MEQ/L (98-107); CREATININE FOR GFR 0.76 MG/DL (0.55-1.30); GLOMERULAR FILTRATION RATE > 60.0 (>45); GLUCOSE, FASTING 247 MG/DL (70-100); POTASSIUM SERUM 4.1 MEQ/L (3.5-5.1); SODIUM LEVEL 141 MEQ/L (136-145); TOTAL PROTEIN 7.1 GM/DL (6.4-8.2)
[2020-07-06] MEDS: SYMBICORT 160/4.5MCG INHALER 6GM INH SCH (07:31)
--- NOTE | 2020-07-06 07:41 | IPN ---
DATE: 07/05/2020 Patient seen and examined. She wished to go ahead with a right total knee arthroplasty. She understands the nature of this, the risks of bleeding, infection, damage to nerves and vessels, persistent pain, wear, loosening, blood clots, medical problems, , among others. CHETNA
[2020-07-06] MEDS: HumaLOG INSULIN (NovoLOG) PER UNIT SC SCH ×2 (08:35→12:18)
[2020-07-06 08:36] VITALS: BP 118/61
[2020-07-06] MEDS: DICYCLOMINE 10 MG CAP PO SCH (08:36)
[2020-07-06] MEDS: rifAXIMin 550 MG TAB (XIFAXAN) PO SCH (08:37)
[2020-07-06] MEDS: GABAPENTIN 100 MG CAP PO SCH (08:37)
[2020-07-06] MEDS ORDERED: MOM 30ML SUSPENSION UDC PO SCH (09:00)
[2020-07-06] MEDS ORDERED: MULTIVITAMINS/MINERALS THERAP 1 TAB PO SCH (09:00)
[2020-07-06] MEDS ORDERED: CYANOCOBALAMIN 500 MCG TAB PO SCH (09:00)
[2020-07-06] MEDS ORDERED: PANTOPRAZOLE 40MG TAB (PROTONIX) PO SCH (09:00)
[2020-07-06] MEDS ORDERED: PROPRANOLOL 60 MG LA CAP PO SCH (09:00)
[2020-07-06] MEDS ORDERED: CETIRIZINE (ZyrTEC) 10 MG TAB PO SCH (09:00)
[2020-07-06] MEDS ORDERED: buPROPion **XL** TABLET 150MG (WELLBUTRIN XL) PO SCH (09:00)
[2020-07-06] MEDS ORDERED: MIRALAX *UNIT DOSE* 17GM PACKET PO SCH (09:00)
[2020-07-06] MEDS ORDERED: MONTELUKAST 10 MG TAB PO SCH (09:00)
[2020-07-06] MEDS ORDERED: SPIRONOLACTONE 25 MG TAB PO SCH (09:00)
[2020-07-06] MEDS ORDERED: POTASSIUM CHLORIDE 10 MEQ SR TABLET PO SCH (09:00)
[2020-07-06 10:00] VITALS: BP 120/61
--- NOTE | 2020-07-06 11:00 | RO ---
DATE OF OPERATION: 07/05/2020 PREOPERATIVE DIAGNOSIS: Right knee osteoarthritis. POSTOPERATIVE DIAGNOSIS: Right knee osteoarthritis. PROCEDURE: Right total knee arthroplasty using an Attune rotating platform, posterior stabilized size 7 femur, size 8 tibial tray, a 7 polyethylene, 38 patellar button. SURGEON: Dr. Twin Falcon PATCH WASHER: [place] ANESTHESIA: Spinal. ESTIMATED BLOOD LOSS: 50. COMPLICATIONS: None. INDICATIONS: A 65-year-old has had severe arthritis of her right knee and wished to go ahead with a knee replacement. Preoperative clearance was obtained. PROCEDURE DESCRIPTION: Patient was taken to the operating room and placed in a supine position. After spinal was induced, the right lower extremity was prepped and draped in the usual sterile fashion. A time-out was performed. Tourniquet was inflated, and a longitudinal incision was made over the anterior aspect of the knee. A medial parapatellar arthrotomy was performed per routine. I everted the patella, which had severe osteophytes on it, flexed the knee up, which also had significant osteophytes on the femur and tibia. Used the canal-initiating reamer followed by the intramedullary guide set at 5 degrees of valgus and a 9 mm cut. This was pinned in place. The distal femoral cut was made, and the femur was sized to be a 7. The drill holes were placed in the end of the femur. The size 7 cutting block was secured on the end of the femur, and the remaining cuts were made. Protected soft tissues at all times. I then prepared the tibial surface, and the retractors were placed. Tibial alignment guide was placed, and I measured 4 mm off the medial side, which seemed to be the low side, and this was more like 8 off of the high side. I pinned this in place in the appropriate amount of valgus and posterior slope, and the proximal tibia cut was made. I removed the excess bone. We then prepared the box. I had also taken two extra off the end of the femur, because there was some degree of a flexion contracture, and I anticipated doing a posterior stabilized due to the flexion contracture and some degree of valgus. The box cutting guide was then secured. The remaining three cuts were made, the bone was removed, and the posterior cruciate ligament (PCL) was removed with the cautery, taking care to control hemostasis. We then used the spacer blocks. I had also removed soft tissue and osteophytes from either side of the knee. Space blocks seemed to be appropriate at 7 or 8 thickness. The tibial surface was prepared. A size 8 fit nicely. This was drilled, broached, and trial components were placed, and I elected to go with a size 7 thickness polyethylene, which had excellent range of motion, excellent stability and soft tissue tension. I had also done a medial release at the beginning. I then free-hand cut the patella, removing about 7 or 8 mm of bone, sized to be a 38. The drill holes were placed, and the drill holes were placed at the end of the femur. The maintenance assistant prepared the bone cement in the modern technique. I injected the Exparel in the deep tissues, irrigated copiously, dried the surfaces, and cemented in the components. I removed all excess bone cement and held the patella in place with a clamp until the cement had hardened. We placed the TXA deep in the wound and then began closing with #1 Vicryl suture and running Stratafix, then irrigated and finished the closure with the Stratafix. The subcutaneous was irrigated and closed with 2-0 Vicryl and the skin with jovi. Sterile dressing was applied. Tourniquet was deflated once the cement was hard, and she was taken to recovery room in stable condition. There were no known complications. The plan will be routine postoperative. The maintenance assistant was instrumental in holding retractors and assisting in mixing the bone cement and assisting in wound closure. CHETNA
--- NOTE | 2020-07-06 14:35 | IPNPDOC ---
Date Seen The patient was seen on 07/06/20. Progress Note SUBJECTIVE: Patient was seen and examined this morning. She is status post day 1 her right total knee replacement. There have been no adverse events reported overnight. Patient states that her pain is controlled. She is working on physical therapy OBJECTIVE PHYSICAL EXAMINATION: VITAL SIGNS: Please see below. GENERAL: Awake, alert, and oriented. Appears in no acute distress. Sitting on edge of bed comfortably HEENT: Atraumatic, normocephalic. Eyes nonicteric. Trachea is midline CARDIOVASCULAR: Normal S1, S2. Regular rate and rhythm. No clicks, rubs, or murmurs RESPIRATORY: Clear vesicular breath sounds bilaterally. No clicks, rubs, or murmurs ABDOMINAL: Soft, nondistended. Nontender. No rebound tenderness. Normoactive bowel sounds EXTREMITIES: Trace lower extremity edema. Right knee is bandaged. Full and equal pulses in bilateral upper and lower extremities NEUROLOGICAL: No focal neurological deficits PSYCHOLOGICAL: Mood and affect appear appropriate LABORATORY DATA, IMAGING STUDIES, MICROBIOLOGY: Please see below. DVT prophylaxis ordered?: xarelto ASSESSMENT AND PLAN: Patient is a 65 year old female with a past medical history significant for IDDM, HTN, and osteoarthritis of the right knee who presented for an elective total right knee replacement. Hospitalist service was consulted for medical management during hospitalization PROBLEMS: 1. Osteoarthritis of Right knee s/p Day 1 total knee replacement -Pain control and management per orthopedic surgery -Patient on Xarelto. 2. HTN -Currently normotensive 3. IDDM -On sliding scale insulin coverage 4. Cirrhosis 2/2 CANALES -Currently compensated. Continue home medications 5. Depression/Anxiety -Continue home medications DISPOSITION: Patient is medically stable. Recommend regular follow-up with her PCP for management of her chronic medical conditions. Attending Note: Patient seen and examined independently. Agree with resident's note. VS, I&O, 24H, Fishbone Vital Signs/I&O Vital Signs Date Time Temp Pulse Resp B/P (MAP) Pulse Ox O2 Delivery O2 Flow Rate FiO2 07/06/20 12:55 18 Room Air 07/06/20 10:00 98.8 61 120/61 (80) 97 07/05/20 16:30 2 I&O- Last 24 Hours up to 6 AM 07/06/20 06:00 Intake Total 2730 ml Output Total 1800 ml Balance 930 ml Laboratory Data 24H LABS Laboratory Tests 2 07/05/20 17:38: Nucleated Red Blood Cells % (auto) 0.0 07/05/20 17:45: Bedside Glucose (Misc Panel) 161H 07/05/20 21:19: Bedside Glucose (Misc Panel) 395H 07/06/20 06:07: Nucleated Red Blood Cells % (auto) 0.0, Immature Granulocyte % (Auto) 0.2, N eutrophils (%) (Auto) 79.4H, Lymphocytes (%) (Auto) 11.9L, Monocytes (%) (Auto) 7.9H, Eosinophils (%) (Auto) 0.1, Basophils (%) (Auto) 0.5, Neutrophils # (Auto) 7.5, Lymphocytes # (Auto) 1.1L, Monocytes # (Auto) 0.8, Eosinophils # (Auto) 0.0, Basophils # (Auto) 0.1, Anion Gap 6L, Glomerular Filtration Rate > 60.0, Calcium Level 8.8, Total Bilirubin 0.7, Aspartate Amino Transf (AST/SGOT) 30, Alanine Aminotransferase (ALT/SGPT) 30, Alkaline Phosphatase 108, Total Protein 7.1, Albumin 2.9L, Albumin/Globulin Ratio 0.7L 07/06/20 11:58: Bedside Glucose (Misc Panel) 280H CBC/BMP Laboratory Tests 07/05/20 17:38 07/06/20 06:07 ALANIS ARANGO DO Jul 06, 2020 14:35 NILDA RICO MD Jul 08, 2020 06:57
[2020-07-06] MEDS ORDERED: RIVAROXABAN 10 MG TAB (XARELTO) PO SCH (18:00)
--- NOTE | 2020-07-10 07:21 | DS ---
DATE OF ADMISSION: 07/05/2020 DATE OF DISCHARGE: 07/06/2020 ATTENDING: Twin Falcon MD. ADMITTING DIAGNOSIS: Osteoarthritis right knee. OTHER DIAGNOSES: Include: * Cirrhosis. * Thrombocytopenia. * Hypertension. * Sleep apnea. * Insulin dependent diabetes. * Anxiety/depression. * Chronic back pain. DISCHARGE DIAGNOSIS: Osteoarthritis right knee status post right total knee arthroplasty. HISTORY: This is a 65-year-old female patient with progressively worsening right knee pain and stiffness. She failed to improve with conservative management. She was admitted for elective knee replacement on the right side. OPERATION PERFORMED: Right total knee arthroplasty. HOSPITAL COURSE: The patient was admitted on the day of surgery and underwent a right total knee arthroplasty which was uneventful. She did well in the post- operative period and hospital course was without complications. She was up with physical therapy per their protocol and her pain was controlled. On the day of discharge she was weightbearing as tolerated on her right lower extremity. She will use Xarelto 10 mg per the protocol for DVT prophylaxis. She will also use Aguila stockings for 30 days post-operatively for DVT prophylaxis. She will resume her pre-operative medications and diet. She was given instructions to include, but not limited to wound monitoring, activity limitations. She will use oral pain medications for pain control. She will follow up with in our office in 10- 14 days for a surgical follow up. Please refer to the medical record for further details. CHETNA
== END 2020-07-06 14:04 | disposition home health service (06) | DRG 302 ==
LOC: M ED INP 11:40 → M MS5PR 16:40
PROVIDERS: ADMIT Orthopaedic Surgery; ATTEND Orthopaedic Surgery
PROC: 0SRC0J9 Replacement of Right Knee Joint with Synthetic Substitute, Cemented, Open Approach (ICD-10-PCS; principal; 2020-07-05 14:05)
DX: M17.11 Unilateral primary osteoarthritis, right knee (principal); K76.6 Portal hypertension; D69.6 Thrombocytopenia, unspecified; K75.81 Nonalcoholic steatohepatitis (NASH); K74.60 Unspecified cirrhosis of liver; E11.9 Type 2 diabetes mellitus without complications; I10 Essential (primary) hypertension; F41.9 Anxiety disorder, unspecified; R26.89 Other abnormalities of gait and mobility; F32.9 Major depressive disorder, single episode, unspecified; G47.33 Obstructive sleep apnea (adult) (pediatric); Z98.84 Bariatric surgery status; Z79.84 Long term (current) use of oral hypoglycemic drugs; Z79.899 Other long term (current) drug therapy; Z98.1 Arthrodesis status; Z90.49 Acquired absence of other specified parts of digestive tract

== ENCOUNTER → 2020-07-12 | Outpatient (CLI) | payer OTHER ==
[~2020-07-12] MED LIST changes: -LR 1,000 ML IV ONE; +PERC5TAB12 PO; +XARE10TA PO; -ceFAZolin SOD 2 GM in IV 1 EA IV ONE; -fentaNYL 100 MCG/2 ML INJECTION (J3010) IV SCH
--- NOTE | 2020-07-12 16:06 | REP ---
INDICATION: M79.661 PAIN RT LOWER LEG,STAT READ [phone] COMPARISON: None. TECHNIQUE: Real time compression and duplex Doppler interrogation of the right lower extremity deep venous system is performed. FINDINGS: The right common femoral, superficial femoral and popliteal veins are fully compressible with transducer pressure and demonstrate normal spontaneous and phasic flow, without evidence of deep venous thrombosis. IMPRESSION: No evidence of deep venous thrombosis of the right lower extremity femoral popliteal venous system. <Electronically signed by Donnell Leggett > 07/12/20 [id number]
== END ==
LOC: M WHC 15:05
PROVIDERS: ATTEND Physician Assistant
DX: M79.661 Pain in right lower leg (principal)

== ENCOUNTER → 2020-07-18 | Outpatient (CLI) | payer OTHER ==
[2020-07-18 15:32] LABS: BASO # 0.1 10^3/uL (0.0-0.2); EOS # 0.6 10^3/uL (0.0-0.5); EOS % 10.3 % (0.0-3.0); HEMATOCRIT 33.1 % (36.0-47.0); LYMPH # 1.3 10^3/uL (1.5-5.0); MEAN CORPUSCULAR HEMOGLOBIN 32.8 pg (27.0-33.0); MEAN CORPUSCULAR HGB CONC 33.2 g/dl (32.0-36.5); MEAN CORPUSCULAR VOLUME 98.8 fl (80.0-96.0); MONO # 0.5 10^3/uL (0.0-0.8); MONO % 8.9 % (0.0-5.0); NEUTROPHILS # 3.6 10^3/uL (1.5-8.5); NEUTROPHILS % 58.3 % (36.0-66.0); PLATELET COUNT, AUTOMATED 247 10^3/uL (150-450); RED BLOOD COUNT 3.35 10^6/uL (4.00-5.40); WHITE BLOOD COUNT 6.1 10^3/uL (4.0-10.0)
[2020-07-18 15:51] LABS: ALBUMIN 3.2 GM/DL (3.2-5.2); ALT/SGPT 20 U/L (12-78); BLOOD UREA NITROGEN 15 MG/DL (7-18); CALCIUM LEVEL 8.9 MG/DL (8.8-10.2); CARBON DIOXIDE LEVEL 29 MEQ/L (21-32); CHLORIDE LEVEL 108 MEQ/L (98-107); CHOLESTEROL LEVEL 116 MG/DL (<200); CREATININE FOR GFR 0.75 MG/DL (0.55-1.30); GLOMERULAR FILTRATION RATE > 60.0 (>45); GLUCOSE, FASTING 170 MG/DL (70-100); HDL CHOLESTEROL 52 MG/DL (>40); LDL CHOLESTEROL 46 MG/DL (<100); NON-HDL-C 64 MG/DL; POTASSIUM SERUM 4.4 MEQ/L (3.5-5.1); SODIUM LEVEL 142 MEQ/L (136-145); TOTAL PROTEIN 7.2 GM/DL (6.4-8.2); TRIGLYCERIDES LEVEL 90 MG/DL (<150)
[2020-07-18 17:07] LABS: HEMOGLOBIN A1c 7.2 %
== END ==
LOC: M LAB 15:00
PROVIDERS: ATTEND Physician Assistant
DX: G93.41 Metabolic encephalopathy (principal); E11.9 Type 2 diabetes mellitus without complications

== ENCOUNTER 2020-08-22 08:24 | Outpatient (RCR) | payer OTHER ==
[~2020-08-22 08:24] MED LIST changes: -MONT10TA4 PO; +MONT5TAB2 PO
== END 2020-08-23 ==
LOC: M PT 08:24
PROVIDERS: ATTEND Orthopaedic Surgery
DX: M17.11 Unilateral primary osteoarthritis, right knee (principal); Z96.651 Presence of right artificial knee joint

== ENCOUNTER → 2020-08-30 | Outpatient (CLI) | payer OTHER ==
[~2020-08-30] MED LIST changes: +ISOVUE-370 76% 100ML VIAL As Ordered ONE
--- NOTE | 2020-08-30 16:06 | REP ---
INDICATION: HEMATURIA. COMPARISON: 07/24/2019 TECHNIQUE: Axial precontrast, contrast-enhanced and delayed images from the lung bases to the pubic symphysis using 100 cc Isovue 370 intravenous contrast material. Coronal and sagittal reformations obtained along with volume rendered 3D CT urogram. This CT examination was performed using the following dose reduction techniques: Automated exposure control, adjustment of mA and/or kv according to the patient's size, and the use of iterative reconstruction technique. FINDINGS: The left kidney demonstrates mild edematous enlargement, acute perinephric stranding, and grade 2/3 hydronephrosis with a 15 mm obstructing calculus in the ureteropelvic junction (images 67-71) along with non-obstructing left intrarenal calculi measuring up to 5 mm. Right kidney demonstrates multiple nonobstructing intrarenal calculi measuring between 2 and 5 mm without acute findings. Evidence for cirrhosis with portal hypertension including large scattered abdominal portosystemic shunts including dilated splenorenal vessel. No obvious focal hepatic lesion identified. Spleen, pancreas, and bilateral adrenal glands are relatively normal/stable. Stable hyperplastic changes to the adrenal glands again noted. Evidence for prior cholecystectomy. Evidence for prior gastric bypass surgery. No bowel obstruction or acute inflammatory process. Pelvis demonstrates normal bladder and age-appropriate with mildly prominent left adnexa and multiple phleboliths noted in the pelvis. No ascites. No free air. No significant retroperitoneal adenopathy. Abdominal aorta without aneurysm or dissection. Musculoskeletal structures demonstrate age-related degenerative changes without acute osseous abnormality. Lung bases are clear. IMPRESSION: 1. Moderate acute left-sided obstructive uropathy with a 15 mm obstructing calculus in the ureteropelvic junction. Bilateral nonobstructing renal calculi noted up to 5 mm. 2. Chronic cirrhosis and portal hypertension. 3. Mildly prominent left adnexa. <Electronically signed by Isak Toussaint > 08/30/20 2750
== END ==
LOC: M RAD 15:10
PROVIDERS: ATTEND Urology
DX: N20.2 Calculus of kidney with calculus of ureter (principal); K74.60 Unspecified cirrhosis of liver; K76.6 Portal hypertension; R31.0 Gross hematuria
CPT/HCPCS: 74178; Q9967

== ENCOUNTER 2020-09-07 14:19 | Day surgery (SDC) | payer OTHER ==
[~2020-09-07] VITALS: Ht 172.7 cm; Wt 97.1 kg
[~2020-09-07 14:19] MED LIST changes: +CONRAY-60 60% 50ML VIAL (Q9961) As Ordered ONE; -ISOVUE-370 76% 100ML VIAL As Ordered ONE
--- OUTSIDE RECORDS SUMMARY | 2020-09-07 14:24 | CCD | Continuity of Care Document ---
Author Author Steff ELKINS MD Organization Unknown Address [address] [place] [address], [address] [place] [address] Phone [phone] Care Team Providers Care Photography Intern Name Role Phone Maggie Kerr DO AUTM [phone] Problems Active Problems Provider Date Type 2 diabetes mellitus Onset: 06/15/20 15 Essential hypertension Onset: 06/15/2015 Social History Type Date Description Comments Sex Unknown ETOH Use Rarely consumes alcohol Tobacco Use Start: Unknown End: Unknown Patient is a former smoker 28 years ago - smoked 1pk/day Allergies, Adverse Reactions, Alerts Active Allergies Reaction Severity Comments Date Gabapentin 04/05/2020 Latex 08/23/2020 Inactive Allergies NKDA 06/15/2015 Medications Active Medications SIG Qnty Indications Ordering Provide r Date Tramadol HCL 50mg Tablets 1 every 6 hours as needed pain 30tabs Z96.651 Twin Elkins MD 08/23/2020 Franklin 5-325mg Tablets take 1 tab by mouth every 6 hours as needed pain 25tabs Z47.1 Twin Elkins MD 07/18/2020 Eliquis 2.5mg Tablets Take 1 Talbet By Mouth Twice Daily For 12 Days 24tabs Twin Elkins MD 07/06/2020 Hibiclens 4% Liquid use in shower once daily for 5 days before surgery, focus on right knee and surrounding area 1units Twin Elkins MD 06/22/2020 Metformin HCL ER 500mg Tablets ER 24HR Unknown Lactulose Encephalopathy 10GM/15ML Solution Unknown Vitamin B-12 1000mcg/15ML Liquid Unknown Vitamin C 1000mg Tablets 1 by mouth every day Unknown Vitamin D3 50mcg (1999) Capsule s 1 by mouth every day Unknown Montelukast Sodium 10mg Tablets Unknown Cyclobenzaprine HCL 10mg Tablets Unknown Xifaxan 550mg Tablets Unknown Ranitidine HCL 150mg Capsules Unknown Diclofenac Sodium 1% Gel apply to affected area as directed one gram three times a day Unkn own Clindamycin Phosphate 1% Lotion Unknown Ketoconazole 2% Shampoo Unknown Terconazole 0.4% Cream Unknown Potassium Chloride ER 20Meq Tablet s ER 1 by mouth every day Unknown Zyrtec Allergy 10mg Capsules 1 by mouth every day Unknown Magnesium Capsules Unknown Hair/Skin/Nails Tablets Unknown Duloxetine HCL 60mg Caps DR Part Unknown Bupropion Hydrochloride ER (XL) 300mg Tablets ER 24HR Unknown Pantoprazole Sodium 20mg Tablets DR Unknown Triamcinolone Acetonide 0.1% Cream Unknown Onetouch Verio Strips Unknown Onetouch Delica Lancets Extra Fine 33G Misc Unknown Onetouch Verio Flex Bloodglucose Monitor ing System w/Device Kit Unknown Tolterodine Tartrate ER 4mg Caps E R 24HR Unknown Dicyclomine HCL 10mg Capsules Unknown Propranolol HCL ER 60mg Caps ER 24HR Unknown Spironolactone 25mg Tablets Unknown Oxycodone-Acetaminophen 5-325mg Tablets Unknown Glipizide 5mg Tablets Unknown History Medications Bactroban 2% Ointment apply a pea sized amount to nasal passages three times a day x 5d before surgery QS Twin Elkins MD 06/22/2020 - 08/22/2020 Valium 2mg Tablets 1 by mouth half an hour prior to mri may take 1 more tab 30 mins after if no effect from first one. 2tabs Darian Darnell MD 05/23/2020 - 020 Immunizations Description No Information Available Vital Signs Date Vital Result Comment 07/12/2020 2:31pm Body Temperature 97.1 F 06/13/2020 3:27pm Body Temperature 97.1 F Results Test Acquired Date Facility Test Result H/L Range Note Comprehensive Metabolic Profil 06/24/2020 [facility] [address] [place] [address] (315)- - Glucose, Fasting 157 mg/dL High 70-100 Blood Urea Nitrogen 11 mg/dL Normal 7-18 Creatinine For GFR 0.74 mg/dL Normal 0.55-1.30 Glomerular Filtration Rate > 60.0 Normal >45 1 Sodium Level 144 mEq/L Normal 136-145 Potassium Serum 4.6 mEq/L Normal 3.5-5.1 Chloride Level 112 mEq/L High 98-107 Carbon Dioxide Level 28 mEq/L Normal 21-32 Anion Gap 4 mEq/L Low 8-16 Calcium Level 9.0 mg/dL Normal 8.8-10.2 Ast/Sgot 36 U/L Normal 7-37 Alt/SGPT 38 U/L Normal 12-78 Alkaline Phosphatase 115 U/L Normal 45-117 Bilirubin,Total 0.8 mg/dL Normal 0.2-1.0 Total Protein 7.4 GM/DL Normal 6.4-8.2 Albumin 3.5 GM/DL Normal 3.2-5.2 Albumin/Globulin Ratio 0.9 Low 1.2-2.2 Complete Blood Count 06/24/2020 [facility] [address] [place] [address] (315)- - White Blood Count 4.6 10 Normal 4.0-10.0 Red Blood Count 4.09 10 Normal 4.00-5.40 Hemoglobin 13.8 g/dL Normal 12.0-15.5 Hematocrit 39.7 % Normal 36.0-47.0 Mean Corpuscular Volume 97.1 fl High 80.0-96.0 Mean Corpuscular Hemoglobin 33.7 pg High 27.0-33.0 Mean Corpuscular HGB Conc 34.8 g/dL Normal 32.0-36.5 Red Cell Distribution Width 12.4 % Normal 11.5-14.5 Platelet Count, Automated 164 10 Normal 150-450 Nucleated Red Blood Cell % 0.0 % Normal 0-0 Laboratory test finding 06/24/2020 [facility] [address] [place] [address] (315)- - Erythrocyte Sedimentation Rate 32 mm/hr High 0-30 Prothrombin Time/Inr 06/24/2020 [facility] [address] [place] [address] (315)- - Prothrombin Time 14.7 seconds High 12.5-14.3 Inr 1.12 Normal 2 Order 06/14/2020 [facility] [address] [facility] [address] [place] [address] HHH Injections <pending> Creatinine With GFR 05/31/2020 [facility] [address] [place] [address] (315)- - Creatinine For GFR 0.69 mg/dL Normal 0.55-1.30 Glomerular Filtration Rate > 60.0 Normal >45 3 Laboratory test finding 05/31/2020 [facility] [address] [place] [address] (315)- - Blood Urea Nitrogen 12 mg/dL Normal 7-18 Partial Thromboplastin Time 04/21/2020 [facility] [address] [place] [address] (315)- - Prothrombin Time 14.5 seconds High 11.8-14.0 Inr 1.10 Normal 4 Partial Thromboplastin Time 35.6 seconds Normal 25.0-38.4 Laboratory test finding 04/21/2020 [facility] [address] [place] [address] (315)- - Platelet Count, Automated 162 10 Normal 150-450 Partial Thromboplastin Time <pending> Laboratory test finding 04/21/2020 [facility] [address] [place] [address] (315)- - Coronavirus 2019 Nasopharygeal This test was de <SEE NOTE> 5 CBC With Differential 04/20/2020 [facility] [address] [place] [address] (315)- - White Blood Count 10.8 10 High 4.0-10.0 Red Blood Count 3.76 10 Low 4.00-5.40 Hemoglobin 11.7 g/dL Low 12.0-15.5 Hematocrit 35.3 % Low 36.0-47.0 Mean Corpuscular Volume 93.9 fl Normal 80.0-96.0 Mean Corpuscular Hemoglobin 31.1 pg Normal 27.0-33.0 Mean Corpuscular HGB Conc 33.1 g/dL Normal 32.0-36.5 Red Cell Distribution Width 13.6 % Normal 11.5-14.5 Platelet Count, Automated 78 10 Low 150-450 6 Neutrophils % 87.4 % High 36.0-66.0 Lymph % 9.3 % Low 24.0-44.0 [place] % 2.1 % Normal 0.0-5.0 Eos % 0.0 % Normal 0.0-3.0 Baso % 0.1 % Normal 0.0-1.0 Immature Granulocyte % 1.1 % Normal 0-3.0 Nucleated Red Blood Cell % 0.0 % Normal 0-0 Neutrophils # 9.4 10 High 1.5-8.5 Lymph # 1.0 10 Low 1.5-5.0 [place] # 0.2 10 Normal 0.0-0.8 Eos # 0.0 10 Normal 0.0-0.5 Baso # 0.0 10 Normal 0.0-0.2 Laboratory test finding 04/20/2020 [facility] [address] [place] [address] (315)- - Erythrocyte Sedimentation Rate 38 mm/hr High 0-30 Laboratory test finding 03/15/2020 [facility] [address] [place] [address] (315)- - Coronavirus 2019 Nasopharygeal Testing was perf <SEE NOTE> 7 Laboratory test finding 03/05/2020 [facility] [address] [place] [address] (315)- - Adrenal Antibodies See Separate Rep <SEE NOTE> Normal 8 Estradiol Sensitive LC/MS See Separate Rep <SEE NOTE> Normal 9 Testosterone Free & Total 03/05/2020 [facility] [address] [place] [address] (315)- - Testosterone Free (Direct) See Separate Rep <SEE NOTE> pg/mL Normal 10 Testosterone Total For T&D See Separate Rep <SEE NOTE> ng/dL Normal 11 Laboratory test finding 03/05/2020 [facility] [address] [place] [address] (315)- - 21 Hydroxylase Antibody SEE SEPARATE REP <SEE NOTE> Cadence l 12 1 Units are mL/min/1.73 m2 Chronic Kidney Disease Staging per NKF: Stage I & II GFR >=60 Normal to Mildly Decreased Stage III GFR 30-59 Moderately Decreased Stage IV GFR 15-29 Severely Decreased Stage V GFR <15 Very Little GFR Left ESRD GFR <15 on CELL TESTER 2 THERAPUTIC HUMAN INR VALUES INDICATIONS NORMAL RANGES PROPHYLAXIS/TREATMENT OF: VENOUS THROMBOSIS 2.0-3.0 PULMONARY EMBOLISM 2.0-3.0 PREVENTION OF SYSTEMIC EMBOLISM FROM: TISSUE HEART VALVES 2.0-3.0 ACUTE MYOCARDIAL INFARCTION 2.0-3.0 VALVULAR HEART DISEASE 2.0-3.0 ATRIAL FIBRILLATION 2.0-3.0 MECHANICAL VALVES(HIGH RISK) 2.5-3.5 RECURRENT MYOCARDIAL INFARCTION 2.5-3.5 3 Units are mL/min/1.73 m2 Chronic Kidney Disease Staging per NKF: Stage I & II GFR >=60 Normal to Mildly Decreased Stage III GFR 30-59 Moderately Decreased Stage IV GFR 15-29 Severely Decreased Stage V GFR <15 Very Little GFR Left ESRD GFR <15 on CELL TESTER 4 THERAPUTIC HUMAN INR VALUES INDICATIONS NORMAL RANGES PROPHYLAXIS/TREATMENT OF: VENOUS THROMBOSIS 2.0-3.0 PULMONARY EMBOLISM 2.0-3.0 PREVENTION OF SYSTEMIC EMBOLISM FROM: TISSUE HEART VALVES 2.0-3.0 ACUTE MYOCARDIAL INFARCTION 2.0-3.0 VALVULAR HEART DISEASE 2.0-3.0 ATRIAL FIBRILLATION 2.0-3.0 MECHANICAL VALVES(HIGH RISK) 2.5-3.5 RECURRENT MYOCARDIAL INFARCTION 2.5-3.5 5 This test was developed and its performance characteristics determined by [facility]. This test has not been FDA cleared or approved. This test has been authorized by FDA under an Emergency Use Authorization (EUA). This test is only authorized for the duration of time the declaration that circumstances exist justifying the authorization of the emergency use of in vitro diagnostic tests for detection of SARS-CoV-2 virus and/or diagnosis of COVID-19 infection under section 564(b)(1) of the Act, 21 U.S.C. 360bbb-3(b)(1), unless the authorization is terminated or revoked sooner. When diagnostic testing is negative, the possibility of a false negative result should be considered in the context of a patient's recent exposures and the presence of clinical signs and symptoms consistent with COVID-19. An individual without symptoms of COVID-19 and who is not shedding SARS-CoV-2 virus would expect to have a negative (not detected) result in this assay. Performed at: [address] [id number] Project Builder: Sheri Mcclellan MD, Phone: [phone] Not Detected 6 Scan Verified machine result s 7 Testing was performed using the jacoby(R) SARS-CoV-2 test. This test was developed and its performance characteristics determined by [facility]. This test has not been FDA cleared or approved. This test has been authorized by FDA under an Emergency Use Authorization (EUA). This test is only authorized for the duration of time the declaration that circumstances exist justifying the authorization of the emergency use of in vitro diagnostic tests for detection of SARS-CoV-2 virus and/or diagnosis of COVID-19 infection under section 564(b)(1) of the Act, 21 U.S.C. 360bbb-3(b)(1), unless the authorization is terminated or revoked sooner. When diagnostic testing is negative, the possibility of a false negative result should be considered in the context of a patient's recent exposures and the presence of clinical signs and symptoms consistent with COVID-19. An individual without symptoms of COVID-19 and who is not shedding SARS-CoV-2 virus would expect to have a negative (not detected) result in this assay. Performed at: [address] [id number] Project Builder: Sheri Mcclellan MD, Phone: [phone] Not Detected 8 See Separate Report Testing performed at reference lab . Report copy to follow on a separate form. 04/20/20 REF LAB#:[id number] 9 See Separate Report 10 See Separate Report 11 See Separate Report 12 SEE SEPARATE REPORT Procedures Date Code Description Status 08/23/2020 97481 X-Ray Knee Ap & Lateral W/Obliqu es Three Views Completed 07/05/2020 54843 Arthroplasty "Total Knee" Medial & Lateral W/ Or W/O Patella Resu Completed 07/05/2020 81599 Arthroplasty "Total Knee" Medial & Lateral W/ Or W/O Patella Resu Completed 04/26/2020 51925 Moderate Sedation Se rvices; Same Phys Intl 15 Mins; PT >= 5 Years Completed 04/26/2020 40299 Epidurography Radiological Super vision & Interpretation Completed 04/26/2020 22535 Injec Anesthetic Age nt/Steroid Trans Epidural Lumb/Sacral Single Completed 04/11/2020 06143 X-Ray Knee Complete W/Obliques & Tunnel And/Or Standing Views Completed 04/11/2020 21135 X-Ray Knee Complete W/Obliques & Tunnel And/Or Standing Views Completed 04/11/2020 18100 X-Ray Knee Complete W/Obliques & Tunnel And/Or Standing Views Completed 03/19/2020 27175 Moderate Sedation Se rvices; Same Phys Intl 15 Mins; PT >= 5 Years Completed 03/19/2020 95771 Epidurography Radiological Super vision & Interpretation Completed 03/19/2020 51532 Injec Anesthetic Age nt/Steroid Trans Epidural Lumb/Sacral Single Completed Medical Devices Description No Information Available Encounters Type Date Location Provider Dx Diagnosis Office Visit 08/23/2020 1:00p Evartsstacey Elkins MD Z47.1 Aftercare following joint replacement surgery Z96.651 Presence of right artificial knee joint Office Visit 07/18/2020 1:00p Toni Elkins MD Z47.1 Aftercare following joint replacement surgery Z96.651 Presence of right artificial knee joint Office Visit 07/12/2020 1:00p Toni Willis, P.A. Z47.1 Aftercare following joint replacement surgery Z96.651 Presence of right artificial knee joint M79.661 Pain in right lower leg Office Visit 07/02/2020 10:45a Evartsstacey Willis, P.A. Z01.818 Encounter for other preprocedural examination M17.11 Unilateral primary osteoarth ritis, right knee Office Visit 06/13/2020 3:00p RICHMOND Vinson M51.37 Other intervertebral disc degeneration, lumbosacral region M51.27 Other intervertebral disc di splacement, lumbosacral region M47.27 Other spondylosis with radic ulopathy, lumbosacral region M48.07 Spinal stenosis, lumbosacral region M43.16 Spondylolisthesis, lumbar re gion M48.02 Spinal stenosis, cervical re gion M47.892 Other spondylosis, cervical region M50.31 Other cervical disc degenera tion, high cervical region Office Visit 05/14/2020 1:30p RICHMOND Vinson M51.37 Other intervertebral disc degeneration, lumbosacral region M51.27 Other intervertebral disc di splacement, lumbosacral region M47.27 Other spondylosis with radic ulopathy, lumbosacral region M48.07 Spinal stenosis, lumbosacral region M43.16 Spondylolisthesis, lumbar re gion M48.02 Spinal stenosis, cervical re gion M47.892 Other spondylosis, cervical region M50.31 Other cervical disc degenera tion, high cervical region Office Visit 04/11/2020 9:15a Evartsstacey Elkins MD M17.0 Bilateral primary osteoarthritis of knee Office Visit 04/05/2020 9:15a EvartsRICHMOND Bradshaw M51.37 Other intervertebral disc degeneration, lumbosacral region M51.27 Other intervertebral disc di splacement, lumbosacral region M47.27 Other spondylosis with radic ulopathy, lumbosacral region M48.07 Spinal stenosis, lumbosacral region M43.16 Spondylolisthesis, lumbar re gion Assessments Date Code Description Provider 08/23/2020 Z47.1 Aftercare following joint replac ement surgery Twin Elkins MD 08/23/2020 Z96.651 Presence of right artificial kne e joint Twin Elkins MD 07/18/2020 Z47.1 Aftercare following joint replac ement surgery Twin Elkins MD 07/18/2020 Z96.651 Presence of right artificial kne e joint Twin Elkins MD 07/12/2020 Z47.1 Aftercare following joint replac ement surgery Royce Willis P.A. 07/12/2020 Z96.651 Presence of right artificial kne e joint Katie AndrewsA. 07/12/2020 M79.661 Pain in right lower leg Jammie Andrews 07/05/2020 M17.11 Unilateral primary osteoarthriti s, right knee Royce Willis, P.A. 07/05/2020 M17.11 Unilateral primary osteoarthriti s, right knee Twin Elkins MD 07/02/2020 Z01.818 Encounter for other preprocedura l examination Royce Willis, P.A. 07/02/2020 M17.11 Unilateral primary osteoarthriti s, right knee Royce Willis, P.A. 06/13/2020 M51.37 Other intervertebral disc degene ration, lumbosacral region [facility] [place] 06/13/2020 M51.27 Other intervertebral disc displa cement, lumbosacral region [facility] 06/13/2020 M47.27 Other spondylosis with radiculop athy, lumbosacral region [facility] 06/13/2020 M48.07 Spinal stenosis, lumbosacral reg ion [facility] 06/13/2020 M43.16 Spondylolisthesis, lumbar region [facility] 06/13/2020 M48.02 Spinal stenosis, cervical region [facility] 06/13/2020 M47.892 Other spondylosis, cervical juan miguel on [facility] 06/13/2020 M50.31 Other cervical disc degeneration , high cervical region [facility] 05/14/2020 M51.37 Other intervertebral disc degene ration, lumbosacral region [facility] 05/14/2020 M51.27 Other intervertebral disc displa cement, lumbosacral region [facility] 05/14/2020 M47.27 Other spondylosis with radiculop athy, lumbosacral region [facility] [place] 05/14/2020 M48.07 Spinal stenosis, lumbosacral reg ion [facility] 05/14/2020 M43.16 Spondylolisthesis, lumbar region [facility] 05/14/2020 M48.02 Spinal stenosis, cervical region [facility] 05/14/2020 M47.892 Other spondylosis, cervical juan miguel on [facility] 05/14/2020 M50.31 Other cervical disc degeneration , high cervical region Stanley M [place] 04/26/2020 M51.26 Other intervertebral disc displa cement, lumbar region Darian Darnell MD 04/26/2020 M48.061 Spinal stenosis, lum bar region without neurogenic claudication Darian Darnell MD 04/11/2020 M17.0 Bilateral primary osteoarthritis of knee Twin Elkins MD 04/05/2020 M51.37 Other intervertebral disc degene ration, lumbosacral region [facility] [place] 04/05/2020 M51.27 Other intervertebral disc displa cement, lumbosacral region [facility] [place] 04/05/2020 M47.27 Other spondylosis with radiculop athy, lumbosacral region Stanley Arely [place] [place] 04/05/2020 M48.07 Spinal stenosis, lumbosacral reg ion Stanley M [place] [place] 04/05/2020 M43.16 Spondylolisthesis, lumbar region Stanley Arely [place] [place] 03/19/2020 M51.26 Other intervertebral disc displa cement, lumbar region Darian Darnell MD 03/19/2020 M48.061 Spinal stenosis, lum bar region without neurogenic claudication Darian Darnell MD Plan of Treatment 08/23/2020 - Twin Elkins MD* Z47.1 Aftercare following joint replacement surgery * Z96.651 Presence of right artificial knee joint* New Medication:* Tramadol HCL 50 mg - 1 every 6 hours as needed pain * Follow up:* in 3-4 months with [facility] for right knee recheck with repeat 3 view xrays of right knee please. Functional Status Description No Information Available Mental Status Description No Information Available Referrals Refer to Dr Reason for Referral Status Appt Date Darian Darnell MD AUTHORIZATION FOR EVAL [id number] ,[id number]. PATIENT GOING TO [facility]. PASSED TO CHART.HW Created [address] [place] [address], [address] [address] [phone] Darian Darnell MD SURGERY PER ANTOLIN AT [facility] FOR TOTAL RT KNEE([id number]) TO SURGERY NT Created [address] [place] [address], [address] [address] [phone] Darian Darnell MD [facility]([id number], [id number], [place] D [id number]) PER [employer] NO AUTH REQUIRED OT SCHEDULING NT Created [address] [place] [phone] Darian Darnell MD [facility]([id number] [place] [id number]) PER [facility] NO AUTH REQUIRED TO SURGERY NT Created [address] [place] [address] [phone]
--- OUTSIDE RECORDS SUMMARY | 2020-09-07 14:24 | CCD ---
Author Author [facility] Organization [facility] Address Unknown Phone Unavailable Care Team Providers Care Applied Research Director Name Role Phone Aaron Ruiz Unavailable PROBLEMS Type Condition ICD9-CM Code UBX02-RP Code Onset Dates Condition S tatus SNOMED Code Notes Problem Preop testing Z01.818 Active 382310105 Problem Urinary tract infection, site not specified N39.0 Active 36427527 Problem Kidney stone N20.0 Active 09309788 ALLERGIES Allergen (clinical drug ingredient) Drug/Non Drug Allergy do cumented on EMR Reaction Allergy Type Onset Date Status tape Unknown Non Drug Allergy Active ENCOUNTERS from 1955 to 2020-08-22 Encounter Location Date Provider Diagnosis [facility] Urology [address] [address] Jul Aaron Ruiz Kidney stone N20.0 and Gross hematuria R 31.0 IMMUNIZATIONS No Information SOCIAL HISTORY Tobacco Use: Social History Observation Description Date Details (start date - stop date) Former Smoker Sex Assigned At : Social History Observation Description Sex Assigned At Unknown Language: Question Answer Notes Languages spoken: British Yazdanism: Question Answer Notes Yazdanism No presybeterian beliefs that would impact health care. Sexual Hx: Question Answer Notes Had sex in the last 12 months (vaginal, oral, or anal)? No Have you ever had an STD? No Alcohol Screening: Question Answer Notes Did you have a drink containing alcohol in the past year? No Points 0 Interpretation Negative Tobacco Use: Question Answer Notes Are you a: former smoker How long has it been since you last smoked? QUIT 28 YEARS AGO REASON FOR REFERRAL No Information VITAL SIGNS Weight 215.4 lbs Jul, Height 70 in Jul, BMI 30.90 kg/m2 Jul, Heart Rate 86 /min Jul, Respiratory Rate 18 /min Jul, Temperature 96.6` degrees Fahrenheit Jul, Oximetry 95 Jul, Blood pressure systolic 116 mm Hg Jul, Blood pressure diastolic 68 mm Hg Jul, MEDICATIONS Medication SIG (Take, Route, Frequency, Duration) Notes Start Da te End Date Status Duloxetine HCl 60 MG 1 capsule Orally Once a day for 30 day(s) Active Lactulose 10 GM/15ML 15 ml Orally Once a day for 30 day(s) Active Aspirin 81 MG 1 tablet Orally Once a day for 30 day(s) Not-Taking Spironolactone 25 MG 1 tablet Orally for 30 day(s) Active Propranolol HCl ER 60 MG 1 capsule Orally Once a day for 30 day(s) Active Ranitidine HCl 150 MG 1 tablet Orally Once a day for 30 day(s) Not-Taking Magnesium Oxide 400 MG 1 tablet as needed Orally Once a day for 30 da y(s) Active GlipiZIDE 5 MG 1 tablet Orally Once a day for 30 day(s) Active Montelukast Sodium 10 MG 1 tablet Orally Once a day for 30 day(s) Active Xifaxan 550 MG 1 tablet Orally Twice a day for 30 day(s) Not-Taking Oxybutynin Chloride ER 10 MG 1 tablet Orally Once a day for 30 day(s) Active Triamcinolone Acetonide 0.1 % 1 application to affecte d area Externally Twice a day Active Dicyclomine HCl 20 MG 1 tablet Orally Three times a day for 30 day(s) Active ProAir HFA 108 (90 Base) MCG/ACT 2 puffs as needed Inhalation every 6 hrs Active BuPROPion HCl ER (XL) 300 MG 1 tablet in the morning O rally Once a day for 30 day(s) Active Citracal Plus - as directed Orally A ctive Xifaxan 550 MG 1 tablet Orally Twice a day for 30 day(s) Active Potassium 1 tab Oral Active Dicyclomine HCl 10 MG 2 capsules Orally prn Active Montelukast Sodium 10 MG 1 tablet Orally Once a day for 30 day(s) Active Percocet 5-325 MG 1 tablet as needed Orally every 6 hrs Active Pantoprazole Sodium 40 MG 1 tablet Orally Once a day for 30 day(s) Active Metformin HCl 1000 MG 1 tablet with a meal Orally twice a day Active Cetirizine HCl 10 MG 1 tablet Orally Once a day for 30 day(s) Active Atenolol 25 MG 1 tablet Orally Once a day for 30 day(s) Not-Taking May Use Active Bactrim DS 800-160 MG 1 tablet Orally as directed- 1 hour prior to cystoscopy Apr, Not-Taking Cyclobenzaprine HCl 10 MG 1 tablet as needed Orally Three times a day Active PROCEDURES No Information RESULTS No Results REASON FOR VISIT RENAL CALCULIS MEDICAL (GENERAL) HISTORY Type Description Date Medical History essential HTN Medical History GERD Medical History diabetic neuropathy Medical History uncomplicated moderate persistent asthma Medical History ALYSSA Medical History allergic rhinitis Medical History Type II DM uncontrolled Medical History morbid obesity Medical History acute sinusitis Medical History cirrhosis-nonalcoholic Medical History moderate recurrent major depression Medical History edema Medical History insomnia Medical History breast cancer Medical History insepalopocy Surgical History CYSTOSOCPY 06/10/2019 Surgical History cysto right ureteroscopy with stent plac ement 07/14/2019 Surgical History cysto with right stent removal 9 Surgical History gastric bypass Surgical History right total knee replacement Surgical History ESWL Surgical History injection in back Surgical History left breast lumpectomy Surgical History neck- 2 discs removed and fused Surgical History bilateral rotator cuffs repair Surgical History bilateral carpal tunnel sx Goals Section No Information Health Concerns No Information MEDICAL EQUIPMENT No Information MENTAL STATUS No Information FUNCTIONAL STATUS No Information ASSESSMENTS Encounter Date Diagnosis Assessment Notes Treatment Notes Treatm ent Clinical Notes Jul, Kidney stone (ICD-10 - N20.0) Patient will have a CT scan with and without contrast followed by treatment of renal calculus. She will also need a 24-hour urine after the renal calculi have been treated. Jul, Gross hematuria (ICD-10 - R31.0) PLAN OF TREATMENT Treatment Notes Assessment Notes Clinical Notes Kidney stone Patient will have a CT scan with and without contrast followed by treatment of renal calculus.She will also need a 24-hour urine after the renal calculi have been treated. Treatment Notes Test Name Order Date CT Scan : Urogram (Abdomen/Pelvis) 2020-08-22 Next Appt Details 2 Weeks Reason:CT results and management of renal calculi Provider Name:Aaron Ruiz, 2020-09-06 11:30:00 AM, [address], [place], [address], Provider Name:Georgina Bettencourt, 2020-10-01 10:45:00 AM, [address] [place], [address], Follow Up:2 WeeksCT results and management of renal calculi Insurance Providers Payer Name Payer Address Payer Phone Insured Name Patient Relati onship to Insured Coverage Start Date Coverage End Date [facility] [address] [facility] [address] LEROY OWEN self
--- OUTSIDE RECORDS SUMMARY | 2020-09-07 14:24 | CCD | Continuity of Care Document ---
Author Author Steff ELKINS MD Organization Unknown Address [address] [place] [address], [address] [place] [address] Phone [phone] Care Team Providers Care Counter Supply Worker Name Role Phone Maggie Kerr DO AUTM Problems Active Problems Provider Date Type 2 [...] pain 30tabs Z96.651 Twin Elkins MD 08/23/2020 [place] 5-325mg Tablets take 1 tab by mouth every 6 hours as needed pain 25tabs Z47.1 Twin Elkins MD 07/18/2020 Eliquis 2.5mg Tablets Take 1 Talbet By Mouth Twice Daily For 12 Days 24tabs Twin Elikns MD 07/06/2020 Hibiclens 4% Liquid use in [...] H/L Range Note Comprehensive Metabolic Profil 06/24/2020 [facility] [address] [place] [address] (315)- - Glucose, Fasting 157 mg/dL High [...] 0.9 Low 1.2-2.2 Complete Blood Count 06/24/2020 [facility] [address] [place] [address] (315)- - White Blood Count 4.6 10 [...] % Normal 0-0 Laboratory test finding 06/24/2020 [facility] [address] [place] [address] (315)- - Erythrocyte Sedimentation Rate 32 mm/hr High 0-30 Prothrombin Time/Inr 06/24/2020 [facility] [address] [place] [address] (315)- - Prothrombin Time 14.7 seconds High 12.5-14.3 Inr 1.12 Normal 2 Order 06/14/2020 [facility] [address] [facility] [address] [place] [address] HHH Injections <pending> Creatinine With GFR 05/31/2020 [facility] [address] [place] [address] (315)- - Creatinine For GFR 0.69 mg/dL Normal 0.55-1.30 Glomerular Filtration Rate > 60.0 Normal >45 3 Laboratory test finding 05/31/2020 [facility] [address] [place] [address] (315)- - Blood Urea Nitrogen 12 mg/dL Normal 7-18 Partial Thromboplastin Time 04/21/2020 [facility] [address] [place] [address] (315)- - Prothrombin Time 14.5 seconds High 11.8-14.0 Inr 1.10 Normal 4 Partial Thromboplastin Time 35.6 seconds Normal 25.0-38.4 Laboratory test finding 04/21/2020 [facility] [address] [place] [address] (315)- - Platelet Count, Automated 162 10 Normal 150-450 Partial Thromboplastin Time <pending> Laboratory test finding 04/21/2020 [facility] [address] [place] [address] (315)- - Coronavirus 2019 Nasopharygeal This test was de <SEE NOTE> 5 CBC With Differential 04/20/2020 [facility] [address] [place] [address] (315)- - White Blood Count 10.8 10 [...] 36.0-66.0 Lymph % 9.3 % Low 24.0-44.0 [place] % 2.1 % Normal 0.0-5.0 Eos % 0.0 % Normal 0.0-3.0 Baso % 0.1 % Normal 0.0-1.0 Immature Granulocyte % 1.1 % Normal 0-3.0 Nucleated Red Blood Cell % 0.0 % Normal 0-0 Neutrophils # 9.4 10 High 1.5-8.5 Lymph # 1.0 10 Low 1.5-5.0 [place] # 0.2 10 Normal 0.0-0.8 Eos # 0.0 10 Normal 0.0-0.5 Baso # 0.0 10 Normal 0.0-0.2 Laboratory test finding 04/20/2020 [facility] [address] [place] [address] (315)- - Erythrocyte Sedimentation Rate 38 mm/hr High 0-30 Laboratory test finding 03/15/2020 [facility] [address] [place] [address] (315)- - Coronavirus 2019 Nasopharygeal Testing was perf <SEE NOTE> 7 Laboratory test finding 03/05/2020 [facility] [address] [place] [address] (315)- - Adrenal Antibodies See Separate Rep <SEE NOTE> Normal 8 Estradiol Sensitive LC/MS See Separate Rep <SEE NOTE> Normal 9 Testosterone Free & Total 03/05/2020 [facility] [address] [place] [address] (315)- - Testosterone Free (Direct) See Separate Rep <SEE NOTE> pg/mL Normal 10 Testosterone Total For T&D See Separate Rep <SEE NOTE> ng/dL Normal 11 Laboratory test finding 03/05/2020 [facility] [address] [place] [address] (315)- - 21 Hydroxylase Antibody SEE SEPARATE REP <SEE NOTE> Cadence l 12 1 Units are mL/min/1.73 m2 Chronic Kidney Disease Staging per NKF: Stage I & II GFR >=60 Normal to Mildly Decreased Stage III GFR 30-59 Moderately Decreased Stage IV GFR 15-29 Severely Decreased Stage V GFR <15 Very Little GFR Left ESRD GFR <15 on HAND CARVER 2 THERAPUTIC HUMAN INR VALUES INDICATIONS NORMAL [...] Little GFR Left ESRD GFR <15 on HAND CARVER 4 THERAPUTIC HUMAN INR VALUES INDICATIONS NORMAL RANGES PROPHYLAXIS/TREATMENT OF: VENOUS THROMBOSIS 2.0-3.0 PULMONARY EMBOLISM 2.0-3.0 PREVENTION OF SYSTEMIC EMBOLISM FROM: TISSUE HEART VALVES 2.0-3.0 ACUTE MYOCARDIAL INFARCTION 2.0-3.0 VALVULAR HEART DISEASE 2.0-3.0 ATRIAL FIBRILLATION 2.0-3.0 MECHANICAL VALVES(HIGH RISK) 2.5-3.5 RECURRENT MYOCARDIAL INFARCTION 2.5-3.5 5 This test was developed and its performance characteristics determined by [facility]. This test has not been FDA cleared [...] detected) result in this assay. Performed at: [address] [id number] Document Management Technician: Sheri Mcclellan MD, Phone: [phone] Not Detected 6 Scan Verified machine result s 7 Testing was performed using the jacoby(R) SARS-CoV-2 test. This test was developed and its performance characteristics determined by [facility]. This test has not been FDA cleared [...] detected) result in this assay. Performed at: [address] [id number] Document Management Technician: Sheri Mcclellan MD, Phone: [phone] Not Detected 8 See Separate Report Testing performed at reference lab . Report copy to follow on a separate form. 04/20/20 REF LAB#:[id number] 9 See Separate Report 10 See Separate Report 11 See Separate Report 12 SEE SEPARATE REPORT Procedures Date Code Description Status 08/23/2020 27765 X-Ray Knee Ap & Lateral W/Obliqu es Three Views Completed 07/05/2020 29703 Arthroplasty "Total Knee" Medial & Lateral W/ Or W/O Patella Resu Completed 07/05/2020 50052 Arthroplasty "Total Knee" Medial & Lateral W/ Or W/O Patella Resu Completed 04/26/2020 09546 Moderate Sedation Se rvices; Same Phys Intl 15 Mins; PT >= 5 Years Completed 04/26/2020 92328 Epidurography Radiological Super vision & Interpretation Completed 04/26/2020 95203 Injec Anesthetic Age nt/Steroid Trans Epidural Lumb/Sacral Single Completed 04/11/2020 74674 X-Ray Knee Complete W/Obliques & Tunnel And/Or Standing Views Completed 04/11/2020 60660 X-Ray Knee Complete W/Obliques & Tunnel And/Or Standing Views Completed 04/11/2020 04127 X-Ray Knee Complete W/Obliques & Tunnel And/Or Standing Views Completed 03/19/2020 68576 Moderate Sedation Se rvices; Same Phys Intl 15 Mins; PT >= 5 Years Completed 03/19/2020 79964 Epidurography Radiological Super vision & Interpretation Completed 03/19/2020 30616 Injec Anesthetic Age nt/Steroid Trans Epidural Lumb/Sacral Single Completed Medical Devices Description No Information Available Encounters Type Date Location Provider Dx Diagnosis Office Visit 08/23/2020 1:00p [place] Elkins MD Z96.651 Presence of right artificial knee joint Office Visit 07/18/2020 1:00p [place] Elkins MD Z47.1 Aftercare following joint replacement surgery Z96.651 Presence of right artificial knee joint Office Visit 07/12/2020 1:00p [place] iWllis, P.A. Z47.1 Aftercare following joint replacement surgery Z96.651 Presence of right artificial knee joint M79.661 Pain in right lower leg Office Visit 07/02/2020 10:45a [place] Willis, P.A. Z01.818 Encounter for other preprocedural examination M17.11 Unilateral primary osteoarth ritis, right knee Office Visit 06/13/2020 3:00p [place] Crocker M51.37 Other intervertebral disc degeneration, lumbosacral region [...] high cervical region Office Visit 04/11/2020 9:15a Toni Elkins MD M17.0 Bilateral primary osteoarthritis of knee Office Visit 04/05/2020 9:15a [place] Vinson M51.37 Other intervertebral disc degeneration, lumbosacral region M51.27 Other intervertebral disc di splacement, lumbosacral region M47.27 Other spondylosis with radic ulopathy, lumbosacral region M48.07 Spinal stenosis, lumbosacral region M43.16 Spondylolisthesis, lumbar re gion Assessments Date Code Description Provider 08/23/2020 Z96.651 Presence of right artificial kne e joint Twin Elkins MD 07/18/2020 Z47.1 Aftercare following joint replac ement surgery Twin Elkins MD 07/18/2020 Z96.651 Presence of right artificial kne e joint Twin Elkins MD 07/12/2020 Z47.1 Aftercare following joint replac ement surgery Royce Willis P.A. 07/12/2020 Z96.651 Presence of right artificial kne e joint Royce Willis P.A. 07/12/2020 M79.661 Pain in right lower leg Katie AndrewsA. 07/05/2020 M17.11 Unilateral primary osteoarthriti s, right knee Katie AndrewsAMir 07/05/2020 M17.11 Unilateral primary osteoarthriti s, right knee Twin Elkins MD 07/02/2020 Z01.818 Encounter for other preprocedura l examination Royce Willis, P.A. 07/02/2020 M17.11 Unilateral primary osteoarthriti s, right knee Royce Willis, P.A. 06/13/2020 M51.37 Other intervertebral disc degene ration, lumbosacral region [facility] 06/13/2020 M51.27 Other intervertebral disc displa cement, lumbosacral region [facility] [place] 06/13/2020 M47.27 Other spondylosis with radiculop athy, lumbosacral region [facility] [place] 06/13/2020 M48.07 Spinal stenosis, lumbosacral reg ion [facility] [place] 06/13/2020 M43.16 Spondylolisthesis, lumbar region [facility] [place] 06/13/2020 M48.02 Spinal stenosis, cervical region [facility] [place] 06/13/2020 M47.892 Other spondylosis, cervical juan miguel on [facility] [place] 06/13/2020 M50.31 Other cervical disc degeneration , high cervical region [facility] [place] 05/14/2020 M51.37 Other intervertebral disc degene ration, lumbosacral region [facility] [place] 05/14/2020 M51.27 Other intervertebral disc displa cement, lumbosacral region [facility] [place] 05/14/2020 M47.27 Other spondylosis with radiculop athy, lumbosacral region [facility] [place] 05/14/2020 M48.07 Spinal stenosis, lumbosacral reg ion [facility] [place] 05/14/2020 M43.16 Spondylolisthesis, lumbar region [facility] [place] 05/14/2020 M48.02 Spinal stenosis, cervical region [facility] [place] 05/14/2020 M47.892 Other spondylosis, cervical juan miguel on [facility] [place] 05/14/2020 M50.31 Other cervical disc degeneration , high cervical region [facility] [place] 04/26/2020 M51.26 Other intervertebral disc displa cement, lumbar region Darian Darnell MD 04/26/2020 M48.061 Spinal stenosis, lum bar region without neurogenic claudication Darian Darnell MD 04/11/2020 M17.0 Bilateral primary osteoarthritis of knee Twin Elkins MD 04/05/2020 M51.37 Other intervertebral disc degene ration, lumbosacral region [facility]andre, [place] 04/05/2020 M51.27 Other intervertebral disc displa cement, lumbosacral region [facility] Alejandre [place] 04/05/2020 M47.27 Other spondylosis with radiculop athy, lumbosacral region [facility] Alejandre [place] 04/05/2020 M48.07 Spinal stenosis, lumbosacral reg ion [facility] [place] 04/05/2020 M43.16 Spondylolisthesis, lumbar region [facility] Alejandre, [place] 03/19/2020 M51.26 Other intervertebral disc displa cement, lumbar region Darian Darnell MD 03/19/2020 M48.061 Spinal stenosis, lum bar region without neurogenic claudication Darian Darnell MD Plan of Treatment 08/23/2020 - Twin Elkins MD* Z96.651 Presence of right artificial knee joint * New Medication:* Tramadol HCL 50 mg - 1 every 6 hours as needed pain * Follow up:* in 3-4 months with [facility] for right knee recheck with repeat 3 view xrays of right knee please. Functional Status Description No Information Available Mental Status Description No Information Available Referrals Refer to Dr Reason for Referral Status Appt Date Darian Darnell MD AUTHORIZATION FOR EVAL [id number] ,[id number]. PATIENT GOING TO [facility]. PASSED TO CHART.HW Created [address] [place] [address], [address] [address] [phone] Darian Darnell MD SURGERY PER [facility] AT [facility] FOR TOTAL RT KNEE(52691) TO SURGERY NT Created [address] [place] [address] [phone] Darian Darnell MD [facility]([id number], [place] D [id number]) PER [facility] NO AUTH REQUIRED OT SCHEDULING NT Created [address] [place] [address] [place] [address] [phone] Darian Darnell MD [facility]([id number] [place] [id number]) PER [employer] NO AUTH REQUIRED TO SURGERY NT Created [address] [facility], [address] [place] [address] [phone]
--- OUTSIDE RECORDS SUMMARY | 2020-09-07 14:25 | CCD | Continuity of Care Document ---
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 Name Role Phone Maggie Kerr DO AUTM [...] Allergies Reaction Severity Comments Date Gabapentin 04/05/2020 Inactive Allergies NKDA 06/15/2015 Medications Active Medications SIG Qnty Indications Ordering Provide r Date Martinton 5-325mg Tablets take 1 tab by mouth every 6 hours as needed pain 25tabs Z47.1 Twin Elkins MD 07/18/2020 Eliquis 2.5mg Tablets Take 1 Talbet By Mouth Twice Daily For 12 Days 24tabs Twin Elkins MD 07/06/2020 Bactroban 2% Ointment apply a pea sized amount to nasal passages three times a day x 5d before surgery QS Twin Elkins MD 06/22/2020 Hibiclens 4% Liquid use in shower once daily for 5 days before surgery, focus on right knee and surrounding area 1units Twin Elkins MD 06/22/2020 Valium 2mg Tablets 1 by mouth half an hour prior to mri may take 1 more tab 30 mins after if no effect from first one. 2tabs Darian Darnell MD 05/23/2020 Metformin HCL ER 500mg Tablets ER 24HR Unknown Lactulose Encephalopathy 10GM/15ML Solution Unknown Vitamin B-12 1000mcg/15ML Liquid Unknown Vitamin C 1000mg Tablets 1 by mouth every day Unknown Vitamin D3 50mcg (2000 Ut) Capsule s 1 by mouth every day [...] Capsules 1 by mouth every day Unknown Glipizide 5mg Tablets Unknown Oxycodone-Acetaminophen 5-325mg Tablets Unknown Spironolactone 25mg Tablets Unknown Propranolol HCL ER 60mg Caps ER 24HR Unknown Dicyclomine HCL 10mg Capsules Unknown Tolterodine Tartrate ER 4mg Caps E R 24HR Unknown Onetouch Verio Flex Bloodglucose Monitor ing System w/Device Kit Unknown Onetouch Delica Lancets Extra Fine 33G Misc Unknown Onetouch Verio Strips Unknown Triamcinolone Acetonide 0.1% Cream Unknown Pantoprazole Sodium 20mg Tablets DR Unknown Bupropion Hydrochloride ER (XL) 300mg Tablets ER 24HR Unknown Duloxetine HCL 60mg Caps DR Part Unknown Hair/Skin/Nails Tablets Unknown Magnesium Capsules Unknown Immunizations Description No Information Available Vital Signs Date Vital Result Comment 07/12/2020 2:31pm Body Temperature 97.1 F 06/13/2020 3:27pm Body Temperature 97.1 F Results Test Acquired Date Facility Test Result H/L Range Note Comprehensive Metabolic Profil 06/24/2020 [facility] [address] [place] [address] (315)- - Glucose, Fasting 157 mg/dL High [...] 0.9 Low 1.2-2.2 Complete Blood Count 06/24/2020 [facility] entr [address] [place] [address] (315)- - White Blood Count 4.6 10 [...] % Normal 0-0 Laboratory test finding 06/24/2020 [facility] [address] [place] [address] (315)- - Erythrocyte Sedimentation Rate 32 mm/hr High 0-30 Prothrombin Time/Inr 06/24/2020 [facility] entr [address] [place] [address] (315)- - Prothrombin Time 14.7 seconds High 12.5-14.3 Inr 1.12 Normal 2 Order 06/14/2020 [facility] [address] [facility] [address] [place] [address] HH Injections <pending> Creatinine With GFR 05/31/2020 [facility] [address] [place] [address] (315)- - Creatinine For GFR 0.69 mg/dL Normal 0.55-1.30 Glomerular Filtration Rate > 60.0 Normal >45 3 Laboratory test finding 05/31/2020 [facility] [address] [place] [address] (315)- - Blood Urea Nitrogen 12 mg/dL Normal 7-18 Laboratory test finding 04/21/2020 [facility] [address] [place] [address] (315)- - Coronavirus 2019 Nasopharygeal This test was de <SEE NOTE> 4 Partial Thromboplastin Time 04/21/2020 [facility] [address] [place] [address] (315)- - Prothrombin Time 14.5 seconds High 11.8-14.0 Inr 1.10 Normal 5 Partial Thromboplastin Time 35.6 seconds Normal 25.0-38.4 Laboratory test finding 04/21/2020 [facility] [address] [place] [address] (315)- - Platelet Count, Automated 162 10 Normal 150-450 Partial Thromboplastin Time <pending> CBC With Differential 04/20/2020 [facility] [address] [place] [address] (315)- - White Blood Count 10.8 10 [...] 36.0-66.0 Lymph % 9.3 % Low 24.0-44.0 Fillmore % 2.1 % Normal 0.0-5.0 Eos % 0.0 % Normal 0.0-3.0 Baso % 0.1 % Normal 0.0-1.0 Immature Granulocyte % 1.1 % Normal 0-3.0 Nucleated Red Blood Cell % 0.0 % Normal 0-0 Neutrophils # 9.4 10 High 1.5-8.5 Lymph # 1.0 10 Low 1.5-5.0 Fillmore # 0.2 10 Normal 0.0-0.8 Eos # 0.0 10 Normal 0.0-0.5 Baso # 0.0 10 Normal 0.0-0.2 Laboratory test finding 04/20/2020 [facility] [address] [place] [address] (315)- - Erythrocyte Sedimentation Rate 38 mm/hr High 0-30 Laboratory test finding 03/15/2020 [facility] [address] [place] [address] (315)- - Coronavirus 2019 Nasopharygeal Testing was perf <SEE NOTE> 7 Laboratory test finding 03/05/2020 [facility] [address] [place] [address] (315)- - Adrenal Antibodies See Separate Rep <SEE NOTE> Normal 8 Estradiol Sensitive LC/MS See Separate Rep <SEE NOTE> Normal 9 Testosterone Free & Total 03/05/2020 [facility] [address] [place] [address] (315)- - Testosterone Free (Direct) See Separate Rep <SEE NOTE> pg/mL Normal 10 Testosterone Total For T&D See Separate Rep <SEE NOTE> ng/dL Normal 11 Laboratory test finding 03/05/2020 [facility] [address] [place] [address] (315)- - 21 Hydroxylase Antibody SEE SEPARATE REP <SEE NOTE> Cadence l 12 1 Units are mL/min/1.73 m2 Chronic Kidney Disease Staging per NKF: Stage I & II GFR >=60 Normal to Mildly Decreased Stage III GFR 30-59 Moderately Decreased Stage IV GFR 15-29 Severely Decreased Stage V GFR <15 Very Little GFR Left ESRD GFR <15 on IT ANALYST 2 THERAPUTIC HUMAN INR VALUES INDICATIONS NORMAL [...] Little GFR Left ESRD GFR <15 on IT ANALYST 4 This test was developed and its performance characteristics determined by [facility]. This test has not been FDA cleared [...] detected) result in this assay. Performed at: - [facility] [id number] Biomedical Technician: Sheri Mcclellan MD, Phone: [phone] Not Detected 5 THERAPUTIC HUMAN INR VALUES INDICATIONS NORMAL RANGES PROPHYLAXIS/TREATMENT OF: VENOUS THROMBOSIS 2.0-3.0 PULMONARY EMBOLISM 2.0-3.0 PREVENTION OF SYSTEMIC EMBOLISM FROM: TISSUE HEART VALVES 2.0-3.0 ACUTE MYOCARDIAL INFARCTION 2.0-3.0 VALVULAR HEART DISEASE 2.0-3.0 ATRIAL FIBRILLATION 2.0-3.0 MECHANICAL VALVES(HIGH RISK) 2.5-3.5 RECURRENT MYOCARDIAL INFARCTION 2.5-3.5 6 Scan Verified machine result s 7 Testing was performed using the jacoby(R) SARS-CoV-2 test. This test was developed and its performance characteristics determined by [facility]. This test has not been FDA cleared [...] detected) result in this assay. Performed at: [address] [id number] Biomedical Technician: Sheri Mcclellan MD, Phone: [phone] Not Detected 8 See Separate Report Testing performed at reference lab . Report copy to follow on a separate form. 04/20/20 REF LAB#:[phone] 9 See Separate Report 10 See Separate Report 11 See Separate Report 12 SEE SEPARATE REPORT Procedures Date Code Description Status 07/05/2020 01582 Arthroplasty "Total Knee" Medial & Lateral W/ Or W/O Patella Resu Completed 07/05/2020 64391 Arthroplasty "Total Knee" Medial & Lateral W/ Or W/O Patella Resu Completed 04/26/2020 96489 Moderate Sedation Se rvices; Same Phys Intl 15 Mins; PT >= 5 Years Completed 04/26/2020 82521 Epidurography Radiological Super vision & Interpretation Completed 04/26/2020 65705 Injec Anesthetic Age nt/Steroid Trans Epidural Lumb/Sacral Single Completed 04/11/2020 07585 X-Ray Knee Complete W/Obliques & Tunnel And/Or Standing Views Completed 04/11/2020 35212 X-Ray Knee Complete W/Obliques & Tunnel And/Or Standing Views Completed 04/11/2020 28505 X-Ray Knee Complete W/Obliques & Tunnel And/Or Standing Views Completed 03/19/2020 55957 Moderate Sedation Se rvices; Same Phys Intl 15 Mins; PT >= 5 Years Completed 03/19/2020 24084 Epidurography Radiological Super vision & Interpretation Completed 03/19/2020 74474 Injec Anesthetic Age nt/Steroid Trans Epidural Lumb/Sacral Single Completed 02/03/2020 70880 Inject/Drain Joint/Bursa Major C ompleted Medical Devices Description No Information Available Encounters Type Date Location Provider Dx Diagnosis Office Visit 07/18/2020 1:00p [facility] MD Z47.1 Aftercare following joint replacement surgery Z96.651 Presence of right artificial knee joint M79.661 Pain in right lower leg Office Visit 07/02/2020 10:45a [facility], P.A. Z01.818 Encounter for other preprocedural examination M17.11 Unilateral primary osteoarth ritis, right knee Office Visit 06/13/2020 3:00p [facility] M51.37 Other intervertebral disc degeneration, lumbosacral region M51.27 Other intervertebral disc di splacement, lumbosacral region M47.27 Other spondylosis with radic ulopathy, lumbosacral region M48.07 Spinal stenosis, lumbosacral region M43.16 Spondylolisthesis, lumbar re gion M48.02 Spinal stenosis, cervical re gion M47.892 Other spondylosis, cervical region M50.31 Other cervical disc degenera tion, high cervical region Office Visit 05/14/2020 1:30p [facility] M51.37 Other intervertebral disc degeneration, lumbosacral [...] lumbosacral region M43.16 Spondylolisthesis, lumbar re gion Office Visit 02/03/2020 11:15a Toni Elkins MD M17.0 Bilateral primary osteoarthritis of knee Assessments Date Code Description Provider 07/18/2020 Z47.1 Aftercare following joint replac ement surgery Twin Elkins MD 07/18/2020 Z96.651 Presence of right artificial kne e joint Twin Elkins MD 07/18/2020 M79.661 Pain in right lower leg Twin Elkins MD 07/12/2020 Z47.1 Aftercare following joint replac ement surgery Royce Willis, P.A. 07/12/2020 Z96.651 Presence of right artificial kne e joint Royce Willis, P.A. 07/12/2020 M79.661 Pain in right lower leg Meena Andrews.A. 07/05/2020 M17.11 Unilateral primary osteoarthriti s, right knee Royce Willis P.A. 07/05/2020 M17.11 Unilateral primary osteoarthriti s, right knee Twin Elkins MD 07/02/2020 Z01.818 Encounter for other preprocedura l examination Royce Willis P.A. 07/02/2020 M17.11 Unilateral primary osteoarthriti s, right knee Royce Willis P.A. 06/13/2020 M51.37 Other intervertebral disc degene ration, lumbosacral region RICHMOND Crocker 06/13/2020 M51.27 Other intervertebral disc displa cement, lumbosacral region [facility] 06/13/2020 M47.27 Other spondylosis with radiculop athy, lumbosacral region [facility] 06/13/2020 M48.07 Spinal stenosis, lumbosacral reg ion [facility] [place] 06/13/2020 M43.16 Spondylolisthesis, lumbar region [facility] [place] 06/13/2020 M48.02 Spinal stenosis, cervical region [facility] 06/13/2020 M47.892 Other spondylosis, cervical juan miguel on [facility] 06/13/2020 M50.31 Other cervical disc degeneration , high cervical region [facility] 05/14/2020 M51.37 Other intervertebral disc degene ration, lumbosacral region [facility] 05/14/2020 M51.27 Other intervertebral disc displa cement, lumbosacral region [facility] 05/14/2020 M47.27 Other spondylosis with radiculop athy, lumbosacral region [facility] [place] 05/14/2020 M48.07 Spinal stenosis, lumbosacral reg ion [facility] 05/14/2020 M43.16 Spondylolisthesis, lumbar region [facility] 05/14/2020 M48.02 Spinal stenosis, cervical region [facility] 05/14/2020 M47.892 Other spondylosis, cervical juan miguel on [facility] 05/14/2020 M50.31 Other cervical disc degeneration , high cervical region [facility] 04/26/2020 M51.26 Other intervertebral disc displa cement, lumbar region Darian Darnell MD 04/26/2020 M48.061 Spinal stenosis, lum bar region without neurogenic claudication Darian Darnell MD 04/11/2020 M17.0 Bilateral primary osteoarthritis of knee Twin Elkins MD 04/05/2020 M51.37 Other intervertebral disc degene ration, lumbosacral region [facility] [place] 04/05/2020 M51.27 Other intervertebral disc displa cement, lumbosacral region [facility] 04/05/2020 M47.27 Other spondylosis with radiculop athy, lumbosacral region RICHMOND Crocker 04/05/2020 M48.07 Spinal stenosis, lumbosacral reg ion RICHMOND Crocker 04/05/2020 M43.16 Spondylolisthesis, lumbar region RICHMOND Crocker 03/19/2020 M51.26 Other intervertebral disc displa cement, lumbar region Darian Darnell MD 03/19/2020 M48.061 Spinal stenosis, lum bar region without neurogenic claudication Darian Darnell MD 02/03/2020 M17.0 Bilateral primary osteoarthritis of knee Twin Elkins MD 02/03/2020 M17.0 Bilateral primary osteoarthritis of knee Twin Elkins MD Plan of Treatment Future Appointment(s):* 08/23/2020 1:00 pm - Twin Elkins MD at [facility] 07/18/2020 - Twin Elkins MD* Z47.1 Aftercare following joint replacement surgery* New Medication:* Martinton 5-325 mg - take 1 tab by mouth every 6 hours as needed pain * Follow up:* 4 weeks with sbf for rt knee recheck wxrays 3views * Z96.651 Presence of right artificial knee joint * M79.661 Pain in right lower leg Functional Status Description No Information Available Mental Status Description No Information Available Referrals Refer to Dr Reason for Referral Status Appt Date Darian Darnell MD SURGERY PER ANTOLIN AT [facility] FOR TOTAL RT KNEE([id number]) TO SURGERY NT Created [address] [place] [phone] Darain Darnell MD JL INJ'S([id number], [id number], AN D [id number]) PER [facility] NO AUTH REQUIRED OT SCHEDULING NT Created [address] [place] [address] [phone] Darian Darnell MD JL INJ'S([id number] [place] [id number]) PER [facility] NO AUTH REQUIRED TO SURGERY NT Created [address] [place] [phone] [phone] Ezekiel, Twin Palacios MD [facility] [place] L1833 [facility] [place] [place] H OPEN BACK X2 (LEFT AND RIGHT) NO AUTH REQUIRED PER CRISELDA Mcgee REF#[id number]. LM Created [facility], [address] [place] [address] [phone]
--- OUTSIDE RECORDS SUMMARY | 2020-09-07 14:25 | CCD | Continuity of Care Document ---
Author Author Steff ELKINS MD Organization Unknown Address [address] [place] [address], it [address] [place] [address] Phone [phone] Care Team Providers Care Manager Wound Care Name Role Phone Maggie Kerr DO AUTM [...] SIG Qnty Indications Ordering Provide r Date [place] 5-325mg Tablets take 1 tab by mouth [...] H/L Range Note Comprehensive Metabolic Profil 06/24/2020 [facility] [address] [place] [address] (315)- - Glucose, Fasting 157 mg/dL High [...] 0.9 Low 1.2-2.2 Complete Blood Count 06/24/2020 [facility] [address] [place] [address] (315)- - White Blood Count 4.6 10 [...] % Normal 0-0 Laboratory test finding 06/24/2020 [facility] [address] [place] [address] (315)- - Erythrocyte Sedimentation Rate 32 mm/hr High 0-30 Prothrombin Time/Inr 06/24/2020 [facility] [address] [place] [address] (315)- - Prothrombin Time 14.7 seconds High 12.5-14.3 Inr 1.12 Normal 2 Order 06/14/2020 [facility] [address] [facility] [address] [place] [address] HH Injections <pending> Creatinine With GFR 05/31/2020 [facility] [address] [place] [address] (315)- - Creatinine For GFR 0.69 mg/dL Normal 0.55-1.30 Glomerular Filtration Rate > 60.0 Normal >45 3 Laboratory test finding 05/31/2020 [facility] [address] [place] [address] (315)- - Blood Urea Nitrogen 12 mg/dL Normal 7-18 Laboratory test finding 04/21/2020 [facility] [address] [place] [address] (315)- - Coronavirus 2019 Nasopharygeal This test was de <SEE NOTE> 4 Partial Thromboplastin Time 04/21/2020 [facility] [address] [place] [address] (315)- - Prothrombin Time 14.5 seconds High 11.8-14.0 Inr 1.10 Normal 5 Partial Thromboplastin Time 35.6 seconds Normal 25.0-38.4 Laboratory test finding 04/21/2020 [facility] [address] [place] [address] (315)- - Platelet Count, Automated 162 10 Normal 150-450 Partial Thromboplastin Time <pending> CBC With Differential 04/20/2020 [facility] [address] [place] [address] (315)- - White Blood Count 10.8 10 [...] 36.0-66.0 Lymph % 9.3 % Low 24.0-44.0 [place] % 2.1 % Normal 0.0-5.0 Eos % 0.0 % Normal 0.0-3.0 Baso % 0.1 % Normal 0.0-1.0 Immature Granulocyte % 1.1 % Normal 0-3.0 Nucleated Red Blood Cell % 0.0 % Normal 0-0 Neutrophils # 9.4 10 High 1.5-8.5 Lymph # 1.0 10 Low 1.5-5.0 [place] # 0.2 10 Normal 0.0-0.8 Eos # 0.0 10 Normal 0.0-0.5 Baso # 0.0 10 Normal 0.0-0.2 Laboratory test finding 04/20/2020 [facility] [address] [place] [address] (315)- - Erythrocyte Sedimentation Rate 38 mm/hr High 0-30 Laboratory test finding 03/15/2020 [facility] [address] [place] [address] (315)- - Coronavirus 2019 Nasopharygeal Testing was perf <SEE NOTE> 7 Laboratory test finding 03/05/2020 [facility] [address] [place] [address] (315)- - Adrenal Antibodies See Separate Rep <SEE NOTE> Normal 8 Estradiol Sensitive LC/MS See Separate Rep <SEE NOTE> Normal 9 Testosterone Free & Total 03/05/[address] [facility] [address] [place] [address] (315)- - Testosterone Free (Direct) See Separate Rep <SEE NOTE> pg/mL Normal 10 Testosterone Total For T&D See Separate Rep <SEE NOTE> ng/dL Normal 11 Laboratory test finding 03/05/2020 [facility] [address] [place] [address] (315)- - 21 Hydroxylase Antibody SEE SEPARATE REP <SEE NOTE> Cadence l 12 1 Units are mL/min/1.73 m2 Chronic Kidney Disease Staging per NKF: Stage I & II GFR >=60 Normal to Mildly Decreased Stage III GFR 30-59 Moderately Decreased Stage IV GFR 15-29 Severely Decreased Stage V GFR <15 Very Little GFR Left ESRD GFR <15 on EKG TECH 2 THERAPUTIC HUMAN INR VALUES INDICATIONS NORMAL [...] Little GFR Left ESRD GFR <15 on EKG TECH 4 This test was developed and its performance characteristics determined by [employer]. This test has not been FDA cleared [...] result in this assay. Performed at: - [facility] [id number] [facility] Teacher: Sheri Mcclellan MD, Phone: [phone] Not Detected 5 THERAPUTIC HUMAN INR VALUES [...] developed and its performance characteristics determined by [employer]. This test has not been FDA cleared [...] detected) result in this assay. Performed at: [address] [id number] [facility] Teacher: Sheri Mcclellan MD, Phone: [phone] Not Detected 8 See Separate Report Testing performed at reference lab . Report copy to follow on a separate form. 04/20/20 REF LAB#:[id number] See Separate Report 10 See Separate Report 11 See Separate Report 12 SEE SEPARATE REPORT Procedures Date Code Description Status 07/05/2020 22855 Arthroplasty "Total Knee" Medial & Lateral W/ Or W/O Patella Resu Completed 07/05/2020 03831 Arthroplasty "Total Knee" Medial & Lateral W/ Or W/O Patella Resu Completed 04/26/2020 32832 Moderate Sedation Se rvices; Same Phys Intl 15 Mins; PT >= 5 Years Completed 04/26/2020 25471 Epidurography Radiological Super vision & Interpretation Completed 04/26/2020 33364 Injec Anesthetic Age nt/Steroid Trans Epidural Lumb/Sacral Single Completed 04/11/2020 69464 X-Ray Knee Complete W/Obliques & Tunnel And/Or Standing Views Completed 04/11/2020 49916 X-Ray Knee Complete W/Obliques & Tunnel And/Or Standing Views Completed 04/11/2020 26217 X-Ray Knee Complete W/Obliques & Tunnel And/Or Standing Views Completed 03/19/2020 24069 Moderate Sedation Se rvices; Same Phys Intl 15 Mins; PT >= 5 Years Completed 03/19/2020 62376 Epidurography Radiological Super vision & Interpretation Completed 03/19/2020 81437 Injec Anesthetic Age nt/Steroid Trans Epidural Lumb/Sacral Single Completed 02/03/2020 15968 Inject/Drain Joint/Bursa Major C ompleted Medical Devices Description No Information Available Encounters Type Date Location Provider Dx Diagnosis Office Visit 07/18/2020 1[facility] [place] [place] Z47.1 Aftercare following joint replacement surgery Z96.651 Presence of right artificial knee joint Office Visit 07/12/2020 1[facility] [place] [facility] Z47.1 Aftercare following joint replacement surgery Z96.651 Presence of right artificial knee joint M79.661 Pain in right lower leg Office Visit 07/02/2020 10:[facility] [place] [place], P.A. Z01.818 Encounter for other preprocedural examination M17.11 Unilateral primary osteoarth ritis, right knee Office Visit 06/13/2020 3:[facility] [place] M51.37 Other intervertebral disc degeneration, lumbosacral region M51.27 Other intervertebral disc di splacement, lumbosacral region M47.27 Other spondylosis with radic ulopathy, lumbosacral region M48.07 Spinal stenosis, lumbosacral region M43.16 Spondylolisthesis, lumbar re gion M48.02 Spinal stenosis, cervical re gion M47.892 Other spondylosis, cervical region M50.31 Other cervical disc degenera tion, high cervical region Office Visit 05/14/2020 1:[facility]p [place] M51.37 Other intervertebral disc degeneration, lumbosacral [...] osteoarthritis of knee Office Visit 04/05/2020 9:15a [place] M51.37 Other intervertebral disc degeneration, lumbosacral region [...] 07/12/2020 M79.661 Pain in right lower leg Royce Willis, P.A. 07/05/2020 M17.11 Unilateral primary osteoarthriti s, right knee Royce Willis P.A. 07/05/2020 M17.11 Unilateral primary osteoarthriti s, right knee Twin Elkins MD 07/02/2020 Z01.818 Encounter for other preprocedura l examination Royce Willis, P.A. 07/02/2020 M17.11 Unilateral primary osteoarthriti s, right knee Royce Willis, P.A. 06/13/2020 M51.37 Other intervertebral disc degene ration, lumbosacral region [facility] 06/13/2020 M51.27 Other intervertebral disc displa cement, lumbosacral region [facility] 06/13/2020 M47.27 Other spondylosis with radiculop athy, lumbosacral region [facility] 06/13/2020 M48.07 Spinal stenosis, lumbosacral reg ion [facility] 06/13/2020 M43.16 Spondylolisthesis, lumbar region [facility] 06/13/2020 M48.02 Spinal stenosis, cervical region [facility] 06/13/2020 M47.892 Other spondylosis, cervical juan miguel on [facility] 06/13/2020 M50.31 Other cervical disc degeneration , high cervical region [facility] 05/14/2020 M51.37 Other intervertebral disc degene ration, lumbosacral region [facility] 05/14/2020 M51.27 Other intervertebral disc displa cement, lumbosacral region [facility] 05/14/2020 M47.27 Other spondylosis with radiculop athy, lumbosacral region [facility] 05/14/2020 M48.07 Spinal stenosis, lumbosacral reg ion [facility] 05/14/2020 M43.16 Spondylolisthesis, lumbar region [facility] 05/14/2020 M48.02 Spinal stenosis, cervical region [facility] 05/14/2020 M47.892 Other spondylosis, cervical juan miguel on [facility] 05/14/2020 M50.31 Other cervical disc degeneration , high cervical region [facility] 04/26/2020 M51.26 Other intervertebral disc displa cement, lumbar region Darian Darnell MD 04/26/2020 M48.061 Spinal stenosis, lum bar region without neurogenic claudication Darian Darnell MD 04/11/2020 M17.0 Bilateral primary osteoarthritis of knee Twin Elknis MD 04/05/2020 M51.37 Other intervertebral disc degene ration, lumbosacral region [facility] 04/05/2020 M51.27 Other intervertebral disc displa cement, lumbosacral region Stanley M [place]ICH[place]D Alejandre 04/05/2020 M47.27 Other spondylosis with radiculop athy, lumbosacral region Stanley M [place] Alejandre 04/05/2020 M48.07 Spinal stenosis, lumbosacral reg ion Stanley Arely [place] Alejandre 04/05/2020 M43.16 Spondylolisthesis, lumbar region RICHMOND Crocker 03/19/2020 M51.26 Other intervertebral disc displa cement, lumbar region Darian Darnell MD 03/19/2020 M48.061 Spinal stenosis, lum bar region without neurogenic claudication Darian Darnell MD 02/03/2020 M17.0 Bilateral primary osteoarthritis of knee Twin Elkins MD 02/03/2020 M17.0 Bilateral primary osteoarthritis of knee Twin Elkins MD Plan of Treatment Future Appointment(s):* 08/23/2020 1:00 pm - Tiwn Elkins [place] at [place] 07/12/2020 - Royce Willis, PMirAMir* Z47.1 Aftercare following joint replacement surgery * Z96.651 Presence of right artificial knee joint * M79.661 Pain in right lower leg Functional Status Description No Information Available Mental Status Description No Information Available Referrals Refer to Reason for Referral Status Appt Date Darian Darnell MD AUTHORIZATION FOR EVAL [id number] ,[id number]. PATIENT GOING TO [facility]. PASSED TO CHART.HW Created [address] [place] [address], [address] [address] [phone] Darian Darnell MD SURGERY PER ANTOLIN AT [facility] FOR TOTAL RT KNEE([id number]) TO SURGERY NT Created [address] [place] [address], [address] [address] [phone] Darian Darnell MD [facility]L [facility]([id number], [id number], AN D [id number]) PER [facility] NO AUTH REQUIRED OT SCHEDULING NT Created [address] [place] [address], [address] [address] [phone] Darian Darnell MD [facility]([id number] [place] [id number]) PER [employer] NO AUTH REQUIRED TO SURGERY NT Created [address] [facility], [address] [place] [address] [phone] Twin Elkins MD [facility] L1833 [facility] BACK X2 (LEFT AND RIGHT) NO AUTH REQUIRED PER CRISELDA Mcgee REF#[id number]. LM Created [address] [facility], [address] [place] [address] [phone]
--- OUTSIDE RECORDS SUMMARY | 2020-09-07 14:25 | CCD | Continuity of Care Document ---
Author Author Steff KERR Organization Unknown Address [id number] [place] [address] Phone [phone] Care Team Providers Care Pile Driver Name Role Phone Maggie Kerr D.O. AUTM [phone] Darian Darnell MD AUTM [phone] Problems Active Problems Provider Date Essential hypertension Maggie Kerr D.O. Onset: 12/2016 Gastroesophageal reflux disease Maggie Kerr D.O. O nset: 05/28/2017 Diabetic neuropathy Maggie Kerr D.O. Onset: 2016 Uncomplicated moderate persistent asthma Maggie quiñones D.O. Onset: 05/28/2017 Obstructive sleep apnea syndrome Maggie Kerr D.O. Onset: 05/28/2017 Allergic rhinitis Maggie Kerr D.O. Onset: 2016 Personal history of primary malignant neoplasm of [facility] Maggie Kerr D.O. Onset: 05/28/2017 Edema Maggie Kerr D.O. Onset: 2016 Insomnia Maggie Kerr D.O. Onset: 2016 Type II diabetes mellitus uncontrolled Maggie Kerr D.O. Onset: 05/28/2017 Morbid obesity Maggie Kerr D.O. Onset: 2016 Acute sinusitis Maggie Kerr D.O. Onset: 2017 Cirrhosis - non-alcoholic RICHMOND Kumar Onset: 2017 Moderate recurrent major depression RICHMOND Kumar Ons et: 08/23/2018 Bariatric surgery status RICHMOND Kumar Onset: 018 Sequela of chronic liver disease RICHMOND Kumar Onset: 11/22/2018 Type 2 diabetes mellitus RICHMOND Kumar Onset: 019 Social History Type Date Description Comments Sex Unknown ETOH Use Occasionally consumes alcohol Tobacco Use Start: Unknown End: Unknown Patient is a former smoker Recreational Drug Use Denies Drug Use Smoking Status Reviewed: 08/02/20 Patient is a former smoker Exercise Type/Frequency Does not exercise Sun Exposure Uses sunscreen Seat Belt/Car Seat Always uses seat belt Allergies, Adverse Reactions, Alerts Active Allergies Reaction Severity Comments Date Gabapentin Increases Ammonia Levels 10/2019 Inactive Allergies NKDA 05/28/2017 Medications Active Medications SIG Qnty Indications Ordering Provide r Date Anastrozole 1mg Tablets 1 by mouth every day 90tabs Z01.818 Kely NegronOMir 07/02 Diclofenac Sodium 1% Gel Apply 1 Gram To Bilateral Knees Four Times A Day For Pain 300units M17.9 Kely NegronOMir 05/15/2020 Constulose 10GM/15ML Solution Take 40 ML By Mouth Three Times A Day 1892units Kely NegronOMir 04/22/2020 Duloxetine HCL 30mg Caps DR Part Take One Capsule By Mouth Twice A Day 60caps F33.1 Kely LucasOMir 08/26/2019 Metformin HCL ER 500mg Tablets ER 24HR 2 tablets by mouth twice daily 360tabs Kely LucasOMir 07/28/2019 Potassium Chloride ER 20Meq Tablet s ER Take One Tablet By Mouth Every Day 30tabs Kely MasonOMir 05/13/2019 Percocet 5-325mg Tablets take one tablet by mouth every at bedtime as needed for pain istop [id number] 30tabs M25.511 Kely NegronOMir 03/18/2019 Bupropion Hydrochloride ER (XL) 300mg Tablets ER 24HR Take One Tablet By Mouth Every Morning 30tabs F33.1 Kely GallegoO. 03/17/2019 Triamcinolone Acetonide 0.1% Cream Apply To Affected Area(S) On Lower Leg And Left Hand Two Times A Day For 7 Days Then as Needed For Flare Ups 80units Z68.37 Bella Negron. O. 11/08/2018 Atenolol 25mg Tablets take one tablet by mouth every day 30tabs Bella Negron.O. 11/09 Xifaxan 550mg Tablets one tablet by mouth twice per day Unknown Propranolol HCL ER 60mg Caps ER 24HR 90caps Kely NegronOMir Dicyclomine HCL 10mg Capsules 1-2 tablets every 6 hours as needed for loose stools, hold for constipation Unknown Ranitidine HCL 150mg Tablets take 1 tablet by mouth twice a day if needed Unknown 0 Glipizide 5mg Tablets Take One Tablet By Mouth Three Times A Day 270tabs Bella Negron. O. Oxybutynin Chloride ER 5mg Tablets ER 24HR 1 by mouth every day Unknown 000 Terconazole 0.4% Cream apply when needed 45gm Kely NegronO. Pantoprazole Sodium 40mg Tablets D R 1 by mouth every day Unknown Ketoconazole 2% Shampoo use twice weekly as shampoo Unknown Mupirocin 2% Ointment 1 apply to nasal passages three times daily 5 days prior to surgery Unknown Hydrocodone-Acetaminophen 5-325mg Tablets 1 tab by mouth tid as needed fof severe pain Twin Eubanks M.D. Spironolactone 25mg Tablets Take One Tablet By Mouth Every Day 30tabs Kely NegronOMir Citracal Plus Tablets 1 b y mouth daily Unknown Montelukast Sodium 10mg Tablets Take One Tablet By Mouth Every Day 90tabs J30.9 Bella Negron.O. Magnesium Oxide 400mg Capsules 1 by mouth every day at bedtime Unknown Cetirizine HCL 10mg Tablets 1 by mouth every day Unknown Cpap Unknown Accu-Chek Ama Plus Strips to be used with glucometer to test blood glucose once daily Unknown Proair HFA 108(90Base) mcg/Act Aer osol 2 puffs as needed Unknown Lancets Misc 1 as directed Unknown BD Ultra-Fine Micro Pen Limestone 6mm X 32 G 32G X 6 mm Misc Use twice a day with lantus Unknown Cyclobenzaprine HCL 10mg Tablets Take One Tablet By Mouth Three Times A Day as Needed (Maximum Daily Dose = 3) 270tabs Bella Negron.O. History Medications Bactroban 2% Cream apply right armevery 12 hours for seven days 30gm L03.113 Maggie Kerr D.O. 06/07/2020 - 07/02/2020 Medications Administered in Office Medication SIG Qnty Indications Ordering Provider Date Immunization Administration Single Or Co mbination Injection Bella Negron 07/02/2017 Immunizations CPT Code Status Date Vaccine Lot # U-Flu Given 05/26/2019 Influenza,Unspecified [id number] Given 07/02/2017 Influenza Vaccin e Quadrivalent Preser/Antibiotic Free Im Use [id number] Vital Signs Date Vital Result Comment 08/02/2020 10:59am BP Systolic 136 mmHg BP Diastolic 72 mmHg Height 66.4 inches 5'6.40" Weight 215.50 lb BMI (Body Mass Index) 34.4 kg/m2 Heart Rate 75 /min Respiratory Rate 18 /min Body Temperature 97.1 F O2 % BldC Oximetry 96 % Madelia Body Weight 130 lb 07/02/2020 2:10pm BP Systolic 126 mmHg BP Diastolic 74 mmHg Height 66.4 inches 5'6.40" Weight 219.50 lb BMI (Body Mass Index) 35.0 kg/m2 Heart Rate 61 /min Respiratory Rate 18 /min Body Temperature 97.4 F O2 % BldC Oximetry 97 % Madelia Body Weight 130 lb Results Test Acquired Date Facility Test Result H/L Range Note Laboratory test finding 07/18/[address] [address] [phone] Ammonia 55 uMOL/L High <32 CBC With Differential 07/18/[address] [address] [phone] White Blood Count 6.1 10 Normal 4.0-10.0 Red Blood Count 3.35 10 Low 4.00-5.40 Hemoglobin 11.0 g/dL Low 12.0-15.5 Hematocrit 33.1 % Low 36.0-47.0 Mean Corpuscular Volume 98.8 fl High 80.0-96.0 Mean Corpuscular Hemoglobin 32.8 pg Normal 27.0-33.0 Mean Corpuscular HGB Conc 33.2 g/dL Normal 32.0-36.5 Red Cell Distribution Width 14.6 % High 11.5-14.5 Platelet Count, Automated 247 10 Normal 150-450 Neutrophils % 58.3 % Normal 36.0-66.0 Lymph % 21.0 % Low 24.0-44.0 Wolfe % 8.9 % High 0.0-5.0 Eos % 10.3 % High 0.0-3.0 Baso % 1.0 % Normal 0.0-1.0 Immature Granulocyte % 0.5 % Normal 0-3.0 Nucleated Red Blood Cell % 0.0 % Normal 0-0 Neutrophils # 3.6 10 Normal 1.5-8.5 Lymph # 1.3 10 Low 1.5-5.0 Wolfe # 0.5 10 Normal 0.0-0.8 Eos # 0.6 10 High 0.0-0.5 Baso # 0.1 10 Normal 0.0-0.2 Comprehensive Metabolic Profil 07/18/[address] [address] [phone] Glucose, Fasting 170 mg/dL High 70-100 Blood Urea Nitrogen 15 mg/dL Normal 7-18 Creatinine For GFR 0.75 mg/dL Normal 0.55-1.30 Glomerular Filtration Rate > 60.0 Normal >45 1 Sodium Level 142 mEq/L Normal 136-145 Potassium Serum 4.4 mEq/L Normal 3.5-5.1 Chloride Level 108 mEq/L High 98-107 Carbon Dioxide Level 29 mEq/L Normal 21-32 Anion Gap 5 mEq/L Low 8-16 Calcium Level 8.9 mg/dL Normal 8.8-10.2 Ast/Sgot 26 U/L Normal 7-37 Alt/SGPT 20 U/L Normal 12-78 Alkaline Phosphatase 113 U/L Normal 45-117 Bilirubin,Total 1.0 mg/dL Normal 0.2-1.0 Total Protein 7.2 GM/DL Normal 6.4-8.2 Albumin 3.2 GM/DL Normal 3.2-5.2 Albumin/Globulin Ratio 0.8 Low 1.2-2.2 Hemoglobin A1c 07/18/2020 [facility] [address] [place] [address] [phone] Hemoglobin A1c 7.2 % Normal 2 Estimated Average Glucose 160 mg/dL High 60-110 Lipid Panel 07/18/2020 [facility] [address] [place] [address] [phone] Triglycerides Level 90 mg/dL Normal <150 Cholesterol Level 116 mg/dL Normal <200 HDL Cholesterol 52 mg/dL Normal >40 LDL Cholesterol 46 mg/dL Normal <100 Non-HDL-C 64 mg/dL Normal Cholesterol Risk Ratio 2.230 Normal <5 Prothrombin Time/Inr 06/24/2020 [facility] Outpatient Test ing (Registration) [address] [place] [address] [phone] Prothrombin Time 14.7 seconds High 12.5-14.3 Inr 1.12 Normal 3 Laboratory test finding 06/24/2020 [facility] Outpatient T esting (Registration) [address] [place] [address] [phone] Erythrocyte Sedimentation Rate 32 mm/hr High 0 -30 Complete Blood Count 06/24/2020 [facility] Outpatient Test ing (Registration) [address] [place] [address] [phone] White Blood Count 4.6 10 Normal 4.0-10.0 [...] Blood Cell % 0.0 % Normal 0-0 Comprehensive Metabolic Profil 06/24/2020 [facility] Outpa tient Testing (Registration) [address] [place], [place] [id number] [phone] Glucose, Fasting 157 mg/dL High 70-100 Blood Urea Nitrogen 11 mg/dL Normal 7-18 Creatinine For GFR 0.74 mg/dL Normal 0.55-1.30 Glomerular Filtration Rate > 60.0 Normal >45 4 Sodium Level 144 mEq/L Normal 136-145 Potassium [...] Normal 3.2-5.2 Albumin/Globulin Ratio 0.9 Low 1.2-2.2 Laboratory test finding 05/31/2020 [facility] Outpatient T esting (Registration) [address] [place] [address] [phone] Blood Urea Nitrogen 12 mg/dL Normal 7-18 Creatinine With GFR 05/31/2020 [facility] Outpatient Testi ng (Registration) [address] [place] [address] [phone] Creatinine For GFR 0.69 mg/dL Normal 0.55-1.30 Glomerular Filtration Rate > 60.0 Normal >45 5 Complete Blood Count 05/31/2020 [facility] Outpatient Test ing (Registration) [address] [place] [address] [phone] White Blood Count 6.2 10 Normal 4.0-10.0 Red Blood Count 4.18 10 Normal 4.00-5.40 Hemoglobin 14.1 g/dL Normal 12.0-15.5 Hematocrit 40.2 % Normal 36.0-47.0 Mean Corpuscular Volume 96.2 fl High 80.0-96.0 Mean Corpuscular Hemoglobin 33.7 pg High 27.0-33.0 Mean Corpuscular HGB Conc 35.1 g/dL Normal 32.0-36.5 Red Cell Distribution Width 12.4 % Normal 11.5-14.5 Platelet Count, Automated 167 10 Normal 150-450 Nucleated Red Blood Cell % 0.0 % Normal 0-0 Prothrombin Time/Inr 05/31/2020 [facility] Outpatient Test ing (Registration) [address] [place] [address] [phone] Prothrombin Time 13.7 seconds Normal 12.5-14.3 Inr 1.03 Normal 6 Comprehensive Metabolic Profil 05/31/2020 [facility] Outpa tient Testing (Registration) [address] [place] [address] [phone] Glucose, Fasting 116 mg/dL High 70-100 Blood Urea Nitrogen 12 mg/dL Normal 7-18 Creatinine For GFR 0.64 mg/dL Normal 0.55-1.30 Glomerular Filtration Rate > 60.0 Normal >45 7 Sodium Level 141 mEq/L Normal 136-145 Potassium Serum 4.0 mEq/L Normal 3.5-5.1 Chloride Level 108 mEq/L High 98-107 Carbon Dioxide Level 29 mEq/L Normal 21-32 Anion Gap 4 mEq/L Low 8-16 Calcium Level 9.3 mg/dL Normal 8.8-10.2 Ast/Sgot 29 U/L Normal 7-37 Alt/SGPT 36 U/L Normal 12-78 Alkaline Phosphatase 120 U/L High 45-117 Bilirubin,Total 0.7 mg/dL Normal 0.2-1.0 Total Protein 7.3 GM/DL Normal 6.4-8.2 Albumin 3.3 GM/DL Normal 3.2-5.2 Albumin/Globulin Ratio 0.8 Low 1.2-2.2 Laboratory test finding 05/31/2020 [facility] Outpatient T esting (Registration) [address] [place] [address] [phone] Alpha Fetoprotein Tumor Quant 3.8 NG/ML Normal <8 .1 8 Laboratory test finding 04/26/[address] [address] [phone] Total 25(Oh) Vitamin D 37.2 NG/ML Normal 30.0-100. 0 Ferritin 30 NG/ML Normal 8-252 Iron (Fe) 124 g/dL Normal 50-170 Vitamin B12 Level 1823 pg/mL High 247-911 9 CBC With Differential 04/26/[address] [address] [phone] White Blood Count 5.9 10 Normal 4.0-10.0 Red Blood Count 4.19 10 Normal 4.00-5.40 Hemoglobin 14.1 g/dL Normal 12.0-15.5 Hematocrit 41.8 % Normal 36.0-47.0 Mean Corpuscular Volume 99.8 fl High 80.0-96.0 Mean Corpuscular Hemoglobin 33.7 pg High 27.0-33.0 Mean Corpuscular HGB Conc 33.7 g/dL Normal 32.0-36.5 Red Cell Distribution Width 13.1 % Normal 11.5-14.5 Platelet Count, Automated 182 10 Normal 150-450 Neutrophils % 52.1 % Normal 36.0-66.0 Lymph % 28.8 % Normal 24.0-44.0 Wolfe % 7.5 % High 0.0-5.0 Eos % 10.2 % High 0.0-3.0 Baso % 1.2 % High 0.0-1.0 Immature Granulocyte % 0.2 % Normal 0-3.0 Nucleated Red Blood Cell % 0.0 % Normal 0-0 Neutrophils # 3.1 10 Normal 1.5-8.5 Lymph # 1.7 10 Normal 1.5-5.0 Wolfe # 0.4 10 Normal 0.0-0.8 Eos # 0.6 10 High 0.0-0.5 Baso # 0.1 10 Normal 0.0-0.2 Hemoglobin A1c 04/26/2020 [facility] [address] [place] [address] [phone] Hemoglobin A1c 6.6 % Normal 10 Estimated Average Glucose 143 mg/dL High 60-110 Laboratory test finding 04/26/[address] [address] [phone] Ammonia 24 uMOL/L Normal <32 Comprehensive Metabolic Profil 04/26/[address] [address] [phone] Glucose, Fasting 214 mg/dL High 70-100 Blood Urea Nitrogen 11 mg/dL Normal 7-18 Creatinine For GFR 0.76 mg/dL Normal 0.55-1.30 Glomerular Filtration Rate > 60.0 Normal >45 1 1 Sodium Level 140 mEq/L Normal 136-145 Potassium Serum 4.2 mEq/L Normal 3.5-5.1 Chloride Level 109 mEq/L High 98-107 Carbon Dioxide Level 26 mEq/L Normal 21-32 Anion Gap 5 mEq/L Low 8-16 Calcium Level 9.2 mg/dL Normal 8.8-10.2 Ast/Sgot 32 U/L Normal 7-37 Alt/SGPT 43 U/L Normal 12-78 Alkaline Phosphatase 121 U/L High 45-117 Bilirubin,Total 0.8 mg/dL Normal 0.2-1.0 Total Protein 7.8 GM/DL Normal 6.4-8.2 Albumin 3.8 GM/DL Normal 3.2-5.2 Albumin/Globulin Ratio 1.0 Low 1.2-2.2 Laboratory test finding 04/21/2020 [facility] Outpatient T esting (Registration) [address] [place] [address] [phone] Platelet Count, Automated 162 10 Normal 150-45 0 Prothrombin Time/Inr 04/21/2020 [facility] Outpatient Test ing (Registration) [address] [place] [address] [phone] Prothrombin Time 14.5 seconds High 11.8-14.0 Inr 1.10 Normal 12 Laboratory test finding 04/21/2020 [facility] Outpatient T esting (Registration) [address] [place] [address] [phone] Partial Thromboplastin Time 35.6 seconds Normal 25 .0-38.4 Laboratory test finding 02/10/[address] [address] [phone] Ammonia <pending> Laboratory test finding 02/10/[address] [address] [phone] Ferritin <pending> CBC With Differential 02/10/[address] [address] [phone] White Blood Count 6.0 10 Normal 4.0-10.0 Red Blood Count 3.87 10 Low 4.00-5.40 Hemoglobin 12.9 g/dL Normal 12.0-15.5 Hematocrit 38.1 % Normal 36.0-47.0 Mean Corpuscular Volume 98.4 fl High 80.0-96.0 Mean Corpuscular Hemoglobin 33.3 pg High 27.0-33.0 Mean Corpuscular HGB Conc 33.9 g/dL Normal 32.0-36.5 Red Cell Distribution Width 13.5 % Normal 11.5-14.5 Platelet Count, Automated 142 10 Low 150-450 Neutrophils % 48.6 % Normal 36.0-66.0 Lymph % 30.5 % Normal 24.0-44.0 Wolfe % 8.6 % High 0.0-5.0 Eos % 11.1 % High 0.0-3.0 Baso % 1.0 % Normal 0.0-1.0 Immature Granulocyte % 0.2 % Normal 0-3.0 Nucleated Red Blood Cell % 0.0 % Normal 0-0 Neutrophils # 2.9 10 Normal 1.5-8.5 Lymph # 1.8 10 Normal 1.5-5.0 Wolfe # 0.5 10 Normal 0.0-0.8 Eos # 0.7 10 High 0.0-0.5 Baso # 0.1 10 Normal 0.0-0.2 Laboratory test finding 02/10/[address] [address] [phone] RBC Folate <pending> Vitamin D 25-Hydroxy <pending> Prothrombin Time/Inr 02/10/2020 [facility] enter [address] [place] [address] [phone] Prothrombin Time 14.3 seconds High 11.8-14.0 Inr 1.14 Normal 13 1 Units are mL/min/1.73 m2 Chronic Kidney Disease Staging per NKF: Stage I & II GFR >=60 Normal to Mildly Decreased Stage III GFR 30-59 Moderately Decreased Stage IV GFR 15-29 Severely Decreased Stage V GFR <15 Very Little GFR Left ESRD GFR <15 on GUIDE DOG MOBILITY INSTRUCTOR 2 REFERENCE RANGES: <=5.6% NORMAL 5.7-6.4% SUGGESTS IMPAIRED GLUCOSE META BOLISM/PREDIABETIC >= 6.5% ABNORMAL 3 THERAPUTIC HUMAN INR VALUES INDICATIONS NORMAL RANGES PROPHYLAXIS/TREATMENT OF: VENOUS THROMBOSIS 2.0-3.0 PULMONARY EMBOLISM 2.0-3.0 PREVENTION OF SYSTEMIC EMBOLISM FROM: TISSUE HEART VALVES 2.0-3.0 ACUTE MYOCARDIAL INFARCTION 2.0-3.0 VALVULAR HEART DISEASE 2.0-3.0 ATRIAL FIBRILLATION 2.0-3.0 MECHANICAL VALVES(HIGH RISK) 2.5-3.5 RECURRENT MYOCARDIAL INFARCTION 2.5-3.5 4 Units are mL/min/1.73 m2 Chronic Kidney Disease Staging per NKF: Stage I & II GFR >=60 Normal to Mildly Decreased Stage III GFR 30-59 Moderately Decreased Stage IV GFR 15-29 Severely Decreased Stage V GFR <15 Very Little GFR Left ESRD GFR <15 on GUIDE DOG MOBILITY INSTRUCTOR 5 Units are mL/min/1.73 m2 Chronic Kidney Disease Staging per NKF: Stage I & II GFR >=60 Normal to Mildly Decreased Stage III GFR 30-59 Moderately Decreased Stage IV GFR 15-29 Severely Decreased Stage V GFR <15 Very Little GFR Left ESRD GFR <15 on GUIDE DOG MOBILITY INSTRUCTOR 6 THERAPUTIC HUMAN INR VALUES INDICATIONS NORMAL RANGES PROPHYLAXIS/TREATMENT OF: VENOUS THROMBOSIS 2.0-3.0 PULMONARY EMBOLISM 2.0-3.0 PREVENTION OF SYSTEMIC EMBOLISM FROM: TISSUE HEART VALVES 2.0-3.0 ACUTE MYOCARDIAL INFARCTION 2.0-3.0 VALVULAR HEART DISEASE 2.0-3.0 ATRIAL FIBRILLATION 2.0-3.0 MECHANICAL VALVES(HIGH RISK) 2.5-3.5 RECURRENT MYOCARDIAL INFARCTION 2.5-3.5 7 Units are mL/min/1.73 m2 Chronic Kidney Disease Staging per NKF: Stage I & II GFR >=60 Normal to Mildly Decreased Stage III GFR 30-59 Moderately Decreased Stage IV GFR 15-29 Severely Decreased Stage V GFR <15 Very Little GFR Left ESRD GFR <15 on GUIDE DOG MOBILITY INSTRUCTOR 8 THE AFP ASSAY IS PERFORMED O N THE [place] BY CHEMILUMINESCENCE AND SHOULD NOT BE COMPARED INTERCHANGEABLY WITH OTHER METHODS. IT SHOULD NOT BE USED ALONE A SCREENING TEST OR DIAGNOSIS FOR THE PRESENCE OR ABSENCE OF MALIGNANT DISEASE. THESE RESULTS ARE NOT INTERPRETABLE IN FEMALES. PREDICTIONS OF DISEASE RECURRENCE SHOULD NOT BE BASED SOLELY ON VALUES OBTAINED FROM SERIAL PATIENT SERUM VALUES. 9 VITAMIN B12 NORMAL RANGE NORMAL 247 - 911 PG/ML INDETERMINATE 211 - 246 PG/ML DEFICIENT LESS THAN 211 PG/ML 10 REFERENCE RANGES: <=5.6% NORMAL 5.7-6.4% SUGGESTS IMPAIRED GLUCOSE META BOLISM/PREDIABETIC >= 6.5% ABNORMAL 11 Units are mL/min/1.73 m2 Chronic Kidney Disease Staging per NKF: Stage I & II GFR >=60 Normal to Mildly Decreased Stage III GFR 30-59 Moderately Decreased Stage IV GFR 15-29 Severely Decreased Stage V GFR <15 Very Little GFR Left ESRD GFR <15 on GUIDE DOG MOBILITY INSTRUCTOR 12 THERAPUTIC HUMAN INR VALUES INDICATIONS NORMAL RANGES PROPHYLAXIS/TREATMENT OF: VENOUS THROMBOSIS 2.0-3.0 PULMONARY EMBOLISM 2.0-3.0 PREVENTION OF SYSTEMIC EMBOLISM FROM: TISSUE HEART VALVES 2.0-3.0 ACUTE MYOCARDIAL INFARCTION 2.0-3.0 VALVULAR HEART DISEASE 2.0-3.0 ATRIAL FIBRILLATION 2.0-3.0 MECHANICAL VALVES(HIGH RISK) 2.5-3.5 RECURRENT MYOCARDIAL INFARCTION 2.5-3.5 13 THERAPUTIC HUMAN INR VALUES INDICATIONS NORMAL RANGES PROPHYLAXIS/TREATMENT OF: VENOUS THROMBOSIS 2.0-3.0 PULMONARY EMBOLISM 2.0-3.0 PREVENTION OF SYSTEMIC EMBOLISM FROM: TISSUE HEART VALVES 2.0-3.0 ACUTE MYOCARDIAL INFARCTION 2.0-3.0 VALVULAR HEART DISEASE 2.0-3.0 ATRIAL FIBRILLATION 2.0-3.0 MECHANICAL VALVES(HIGH RISK) 2.5-3.5 RECURRENT MYOCARDIAL INFARCTION 2.5-3.5 Procedures Description No Information Available Medical Devices Description No Information Available Encounters Type Date Location Provider Dx Diagnosis Office Visit 08/02/2020 11:00a [facility] Erwin Kerr D.O. I10 Essential (primary) hyperten elian F33.1 Major depressive disorder, r ecurrent, moderate E11.9 Type 2 diabetes mellitus wit hout complications G47.33 Obstructive sleep apnea (jessenia lt) (pediatric) Z96.651 Presence of right artificial knee joint Z79.82 intermodal dispatcher (current) use of a spirin Z79.899 Other ocean transportation intermediary (current) dr rich therapy K72.90 Hepatic failure, unspecified without coma M54.5 Low back pain N20.0 Calculus of kidney Office Visit 07/02/2020 2:00p [facility] RICHMOND Kumar Z01.818 Encounter for other preproce dural examination 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, NEC, right knee Office Visit 06/07/2020 9:20a [facility] R[place]D Ann L03.113 Cellulitis of right upper li mb Office Visit 05/01/2020 2:00p [facility] RICH[place]D Kumar I10 Essential (primary) hyperten elian Z98.84 Bariatric surgery status F33.1 Major depressive disorder, r ecurrent, moderate E11.9 Type 2 diabetes mellitus wit hout complications G47.33 Obstructive sleep apnea (jessenia lt) (pediatric) G93.41 Metabolic encephalopathy Assessments Date Code Description Provider 08/02/2020 I10 Essential (primary) hypertension Maggie Kerr, D.O. 08/02/2020 F33.1 Major depressive disorder, recur rent, moderate Maggie Sharif, D.O. 08/02/2020 E11.9 Type 2 diabetes mellitus without complications Maggie Sharif, D.O. 08/02/2020 G47.33 Obstructive sleep apnea (adult) (pediatric) Maggie Sharif, D.O. 08/02/2020 Z96.651 Presence of right artificial kne e joint Maggie Kerr, D.O. 08/02/2020 Z79.82 intermodal dispatcher (current) use of aspir in Maggie Kerr, D.O. 08/02/2020 Z79.899 Other residential (current) drug t herapy Maggie Kerr, D.O. 08/02/2020 K72.90 Hepatic failure, unspecified wit hout coma Maggie Sharif, D.O. 08/02/2020 M54.5 Low back pain Maggie smart, D.O. 08/02/2020 N20.0 Calculus of kidney Maggie Paniagua D.O. 07/02/2020 Z01.818 Encounter for other preprocedura l examination [place]D Kumar 07/02/2020 M12.861 Other specific arthr opathies, not elsewhere classified, right knee [place]D Kumar 06/07/2020 L03.113 Cellulitis of right upper limb M [place]D Gonzalez 05/01/2020 I10 Essential (primary) hypertension RICHMOND Kumar 05/01/2020 Z98.84 Bariatric surgery status RICHMOND Kumar 05/01/2020 F33.1 Major depressive disorder, recur rent, moderate RICHMOND Kumar 05/01/2020 E11.9 Type 2 diabetes mellitus without complications R[place]D Kumar 05/01/2020 G47.33 Obstructive sleep apnea (adult) (pediatric) RICHMOND Kumar 05/01/2020 G93.41 Metabolic encephalopathy RICHMOND Kumar Plan of Treatment Future Appointment(s):* 11/06/2020 10:00 am - [place]D Kumar at [facility] Functional Status Description No Information Available Mental Status Description No Information Available Referrals Refer to Reason for Referral Status Appt [facility] This is a 65 year old female with chronic MDD. She is maintained on cymbalta 30 BID with 300 mg Wellbutrin and I have not been successful with weaning her cymbalta (she has liver disease and I would like her on a lower dose). Please evaluate and treat with her liver disease in mind. Created [address] [place] [phone] Varun Mcduffie MD This is a 65 year old female with known renal calculis s/p lithotripsy with you. She is having hematuria but no pain. Please evaluate and treat. Created [id number] [place] [address] [place] [id number] [phone]
--- OUTSIDE RECORDS SUMMARY | 2020-09-07 14:25 | CCD | Continuity of Care Document ---
Author Author Steff WILLIS P.A. Organization Unknown Address [address] [place] [address], [facility] [address] [place] [address] Phone [phone] Care Team Providers Care Appeals Manager Name Role Phone Maggie Kerr DO AUTM [phone] Problems Active Problems Provider Date Type [...] SIG Qnty Indications Ordering Provide r Date Dutton 5-325mg Tablets take 1 tab by mouth every 6 hours as needed pain 25tabs Z47.1 Twin Falcon MD 07/18/2020 Eliquis 2.5mg Tablets Take 1 Talbet By Mouth Twice Daily For 12 Days 24tabs Twin Falcon MD 07/06/2020 Bactroban 2% Ointment apply a pea sized amount to nasal passages three times a day x 5d before surgery QS Twin Falcon MD 06/22/2020 Hibiclens 4% Liquid use in shower once daily for 5 days before surgery, focus on right knee and surrounding area 1units Twin Falcon MD 06/22/2020 Valium 2mg Tablets 1 by [...] H/L Range Note Comprehensive Metabolic Profil 06/24/2020 [facility] [address] [place] [address] (315)- - Glucose, Fasting 157 mg/dL High [...] 0.9 Low 1.2-2.2 Complete Blood Count 06/24/2020 [facility] C entr [address] [place] [address] (315)- - White Blood Count 4.6 10 [...] % Normal 0-0 Laboratory test finding 06/24/[facility] [address] [place] [address] (315)- - Erythrocyte Sedimentation Rate 32 mm/hr High 0-30 Prothrombin Time/Inr 06/24/2020 [facility] [address] [place] [address] (315)- - Prothrombin Time 14.7 seconds High 12.5-14.3 Inr 1.12 Normal 2 Order 06/14/2020 [facility] [address] [facility] [place] [address] HH Injections <pending> Creatinine With GFR 05/31/2020 [facility] Ce [facility]tr [address] [place] [address] (315)- - Creatinine For GFR 0.69 mg/dL Normal 0.55-1.30 Glomerular Filtration Rate > 60.0 Normal >45 3 Laboratory test finding 05/31/2020 [facility] [place] [address] [place] [address] (315)- - Blood Urea Nitrogen 12 mg/dL Normal 7-18 Laboratory test finding 04/21/2020 [facility] [address] [place] [address] (315)- - Coronavirus 2019 Nasopharygeal This test was de <SEE NOTE> 4 Partial Thromboplastin Time 04/21/2020 [facility] [address] [place] [address] (315)- - Prothrombin Time 14.5 seconds High 11.8-14.0 Inr 1.10 Normal 5 Partial Thromboplastin Time 35.6 seconds Normal 25.0-38.4 Laboratory test finding 04/21/2020 [facility] [address] [place] [address] (315)- - Platelet Count, Automated 162 10 Normal 150-450 Partial Thromboplastin Time <pending> CBC With Differential 04/20/2020 [facility] [place] [address] [place] [address] (315)- - White Blood Count 10.8 10 [...] 36.0-66.0 Lymph % 9.3 % Low 24.0-44.0 [place] % 2.1 % Normal 0.0-5.0 Eos % 0.0 % Normal 0.0-3.0 Baso % 0.1 % Normal 0.0-1.0 Immature Granulocyte % 1.1 % Normal 0-3.0 Nucleated Red Blood Cell % 0.0 % Normal 0-0 Neutrophils # 9.4 10 High 1.5-8.5 Lymph # 1.0 10 Low 1.5-5.0 [place] # 0.2 10 Normal 0.0-0.8 Eos # 0.0 10 Normal 0.0-0.5 Baso # 0.0 10 Normal 0.0-0.2 Laboratory test finding 04/20/2020 [facility] [address] [place] [address] (315)- - Erythrocyte Sedimentation Rate 38 mm/hr High 0-30 Laboratory test finding 03/15/2020 [facility] [address] [place] [address] (315)- - Coronavirus 2019 Nasopharygeal Testing was perf <SEE NOTE> 7 Laboratory test finding 03/05/2020 [facility] [address] [place] [address] (315)- - Adrenal Antibodies See Separate Rep <SEE NOTE> Normal 8 Estradiol Sensitive LC/MS See Separate Rep <SEE NOTE> Normal 9 Testosterone Free & Total 03/05/2020 [facility] [address] [place] [address] (315)- - Testosterone Free (Direct) See Separate Rep <SEE NOTE> pg/mL Normal 10 Testosterone Total For T&D See Separate Rep <SEE NOTE> ng/dL Normal 11 Laboratory test finding 03/05/2020 [facility] [address] [place] [address] (315)- - 21 Hydroxylase Antibody SEE SEPARATE REP <SEE NOTE> Cadence l 12 1 Units are mL/min/1.73 m2 Chronic Kidney Disease Staging per NKF: Stage I & II GFR >=60 Normal to Mildly Decreased Stage III GFR 30-59 Moderately Decreased Stage IV GFR 15-29 Severely Decreased Stage V GFR <15 Very Little GFR Left ESRD GFR <15 on COMBER OPERATOR 2 THERAPUTIC HUMAN INR VALUES INDICATIONS NORMAL [...] Little GFR Left ESRD GFR <15 on COMBER OPERATOR 4 This test was developed and its performance characteristics determined by [employer]. This test has not been FDA cleared [...] result in this assay. Performed at: - [facility] [id number] [employer] Technician: Sheri Mcclellan MD, Phone: [phone] Not Detected 5 THERAPUTIC HUMAN INR VALUES [...] developed and its performance characteristics determined by [employer]. This test has not been FDA cleared [...] detected) result in this assay. Performed at: [address] [id number] [employer] Technician: Sheri Mcclellan MD, Phone: [phone] Not Detected 8 See Separate Report Testing performed at reference lab . Report copy to follow on a separate form. 04/20/20 REF LAB#:[id number] 9 See Separate Report 10 See Separate Report 11 See Separate Report 12 SEE SEPARATE REPORT Procedures Date Code Description Status 07/05/2020 73477 Arthroplasty "Total Knee" Medial & Lateral W/ Or W/O Patella Resu Completed 07/05/2020 76351 Arthroplasty "Total Knee" Medial & Lateral W/ Or W/O Patella Resu Completed 04/26/2020 90298 Moderate Sedation Se rvices; Same Phys Intl 15 Mins; PT >= 5 Years Completed 04/26/2020 50290 Epidurography Radiological Super vision & Interpretation Completed 04/26/2020 02904 Injec Anesthetic Age nt/Steroid Trans Epidural Lumb/Sacral Single Completed 04/11/2020 58412 X-Ray Knee Complete W/Obliques & Tunnel And/Or Standing Views Completed 04/11/2020 49002 X-Ray Knee Complete W/Obliques & Tunnel And/Or Standing Views Completed 04/11/2020 87986 X-Ray Knee Complete W/Obliques & Tunnel And/Or Standing Views Completed 03/19/2020 25166 Moderate Sedation Se rvices; Same Phys Intl 15 Mins; PT >= 5 Years Completed 03/19/2020 33990 Epidurography Radiological Super vision & Interpretation Completed 03/19/2020 82904 Injec Anesthetic Age nt/Steroid Trans Epidural Lumb/Sacral Single Completed 02/03/2020 06138 Inject/Drain Joint/Bursa Major C ompleted Medical Devices Description No Information Available Encounters Type Date Location Provider Dx Diagnosis Office Visit 07/18/2020 1:00p [place] Falcon MD Z47.1 Aftercare following joint replacement surgery Z96.651 Presence of right artificial knee joint M79.661 Pain in right lower leg Office Visit 07/02/2020 10:45a [place], P.A. Z01.818 Encounter for other preprocedural examination M17.11 Unilateral primary osteoarth ritis, right knee Office Visit 06/13/2020 3:00p [place] M51.37 Other intervertebral disc degeneration, lumbosacral region M51.27 Other intervertebral disc di splacement, lumbosacral region M47.27 Other spondylosis with radic ulopathy, lumbosacral region M48.07 Spinal stenosis, lumbosacral region M43.16 Spondylolisthesis, lumbar re gion M48.02 Spinal stenosis, cervical re gion M47.892 Other spondylosis, cervical region M50.31 Other cervical disc degenera tion, high cervical region Office Visit 05/14/2020 1:30p [place] M51.37 Other intervertebral disc degeneration, lumbosacral region M51.27 Other intervertebral disc di splacement, lumbosacral region M47.27 Other spondylosis with radic ulopathy, lumbosacral region M48.07 Spinal stenosis, lumbosacral region M43.16 Spondylolisthesis, lumbar re gion M48.02 Spinal stenosis, cervical re gion M47.892 Other spondylosis, cervical region M50.31 Other cervical disc degenera tion, high cervical region Office Visit 04/11/2020 9:15a Toni Falcon MD M17.0 Bilateral primary osteoarthritis of knee Office Visit 04/05/2020 9:15a [place] Vinson M51.37 Other intervertebral disc degeneration, lumbosacral region M51.27 Other intervertebral disc di splacement, lumbosacral region M47.27 Other spondylosis with radic ulopathy, lumbosacral region M48.07 Spinal stenosis, lumbosacral region M43.16 Spondylolisthesis, lumbar re gion Office Visit 02/03/2020 11:15a Toin Falcon MD M17.0 Bilateral primary osteoarthritis of knee Assessments Date Code Description Provider 07/18/2020 Z47.1 Aftercare following joint replac ement surgery Twin Falcon MD 07/18/2020 Z96.651 Presence of right artificial kne e joint Twin Falcon MD 07/18/2020 M79.661 Pain in right lower leg Twin Falcon MD 07/12/2020 Z47.1 Aftercare following joint replac ement surgery Royce Willis, P.A. 07/12/2020 Z96.651 Presence of right artificial kne e joint Royce Willis P.A. 07/12/2020 M79.661 Pain in right lower leg Meena Andrews.A. 07/05/2020 M17.11 Unilateral primary osteoarthriti s, right knee Royce Willis P.A. 07/05/2020 M17.11 Unilateral primary osteoarthriti s, right knee Twin Falcon MD 07/02/2020 Z01.818 Encounter for other preprocedura l examination Royce Willis P.A. 07/02/2020 M17.11 Unilateral primary osteoarthriti s, right knee Royce Willis P.A. 06/13/2020 M51.37 Other intervertebral disc degene ration, lumbosacral region [place] Crocker 06/13/2020 M51.27 Other intervertebral disc displa cement, lumbosacral region [facility] 06/13/2020 M47.27 Other spondylosis with radiculop athy, lumbosacral region [facility] 06/13/2020 M48.07 Spinal stenosis, lumbosacral reg ion [facility] [place] 06/13/2020 M43.16 Spondylolisthesis, lumbar region [facility] 06/13/2020 M48.02 Spinal stenosis, cervical region [facility] 06/13/2020 M47.892 Other spondylosis, cervical juan miguel on [facility] 06/13/2020 M50.31 Other cervical disc degeneration , high cervical region [facility] 05/14/2020 M51.37 Other intervertebral disc degene ration, lumbosacral region [facility] 05/14/2020 M51.27 Other intervertebral disc displa cement, lumbosacral region [facility] 05/14/2020 M47.27 Other spondylosis with radiculop athy, lumbosacral region [facility] 05/14/2020 M48.07 Spinal stenosis, lumbosacral reg ion [facility] 05/14/2020 M43.16 Spondylolisthesis, lumbar region [facility] 05/14/2020 M48.02 Spinal stenosis, cervical region [facility] 05/14/2020 M47.892 Other spondylosis, cervical juan miguel on [facility] 05/14/2020 M50.31 Other cervical disc degeneration , high cervical region [facility] 04/26/2020 M51.26 Other intervertebral disc displa cement, lumbar region Darian Darnell MD 04/26/2020 M48.061 Spinal stenosis, lum bar region without neurogenic claudication Darian Darnell MD 04/11/2020 M17.0 Bilateral primary osteoarthritis of knee Twin Falcon MD 04/05/2020 M51.37 Other intervertebral disc degene ration, lumbosacral region [facility] [place] 04/05/2020 M51.27 Other intervertebral disc displa cement, lumbosacral region [place] Crocker 04/05/2020 M47.27 Other spondylosis with radiculop athy, lumbosacral region [place] Crocker 04/05/2020 M48.07 Spinal stenosis, lumbosacral reg ion [place] Crocker 04/05/2020 M43.16 Spondylolisthesis, lumbar region [place] Crocker 03/19/2020 M51.26 Other intervertebral disc displa cement, lumbar region Darian Darnell MD 03/19/2020 M48.061 Spinal stenosis, lum bar region without neurogenic claudication Darian Darnell MD 02/03/2020 M17.0 Bilateral primary osteoarthritis of knee Twin Falcon MD 02/03/2020 M17.0 Bilateral primary osteoarthritis of knee Twin Falcon MD Plan of Treatment Future Appointment(s):* 08/23/2020 1:00 pm - Twin Falcon MD at [place] 07/18/2020 - Twin Falcon MD* Z47.1 Aftercare following joint replacement surgery* New Medication:* Dutton 5-325 mg - take 1 tab by [...] Darian Darnell MD SURGERY PER ANTOLIN AT [facility] FOR TOTAL RT KNEE(75812) TO SURGERY NT Created [address] [place] [address] [phone] Darian Darnell MD [facility]L INJ'S([id number], [id number], [place] D [id number]) PER [facility] NO AUTH REQUIRED OT SCHEDULING NT Created [address] [place] [address] [phone] Darian Darnell MD J[facility] INJ'S([id number] [place] [id number]) PER [facility] NO AUTH REQUIRED TO SURGERY NT Created [address] [place] [address] [phone] Twin Falcon MD [facility] [id number] [facility] OPEN BACK X2 (LEFT AND RIGHT) NO AUTH REQUIRED PER CRISELDA cMgee REF#[id number]. LM Created [address] [facility], [address] [place] [address] [phone]
--- OUTSIDE RECORDS SUMMARY | 2020-09-07 14:25 | CCD | Continuity of Care Document ---
Author Author Steff KERR Organization Unknown Address [address] [place] [address] Phone [phone] Care Team Providers Care Parts Sales Associate Name Role Phone Maggie Kerr D.O. AUTM [phone] Darian Darnell MD AUTM [phone] Problems Active Problems Provider Date Essential hypertension [...] at bedtime as needed for pain istop [id number] 30tabs M25.511 Kely NegronOMir 03/18/2019 Bupropion Hydrochloride [...] as directed Unknown BD Ultra-Fine Micro Pen [place] 6mm X 32 G 32G X 6 [...] Vaccine Lot # U-Flu Given 05/26/2019 Influenza,Unspecified [id number] Given 07/02/2017 Influenza Vaccin e Quadrivalent Preser/Antibiotic Free Im Use [id number] Vital Signs Date Vital Result Comment 08/02/2020 10:59am BP Systolic 136 mmHg BP Diastolic 72 mmHg Height 66.4 inches 5'6.40" Weight 215.50 lb BMI (Body Mass Index) 34.4 kg/m2 Heart Rate 75 /min Respiratory Rate 18 /min Body Temperature 97.1 F O2 % BldC Oximetry 96 % [place] Body Weight 130 lb 07/02/2020 2:10pm BP Systolic 126 mmHg BP Diastolic 74 mmHg Height 66.4 inches 5'6.40" Weight 219.50 lb BMI (Body Mass Index) 35.0 kg/m2 Heart Rate 61 /min Respiratory Rate 18 /min Body Temperature 97.4 F O2 % BldC Oximetry 97 % [place] Body Weight 130 lb Results Test Acquired Date Facility Test Result H/L Range Note Laboratory test finding 07/18/[address] [address] [phone] Ammonia 55 uMOL/L High <32 CBC With Differential 07/18/[address] [address] [phone] White Blood Count 6.1 10 Normal 4.0-10.0 [...] 36.0-66.0 Lymph % 21.0 % Low 24.0-44.0 [place] % 8.9 % High 0.0-5.0 Eos % 10.3 % High 0.0-3.0 Baso % 1.0 % Normal 0.0-1.0 Immature Granulocyte % 0.5 % Normal 0-3.0 Nucleated Red Blood Cell % 0.0 % Normal 0-0 Neutrophils # 3.6 10 Normal 1.5-8.5 Lymph # 1.3 10 Low 1.5-5.0 [place] # 0.5 10 Normal 0.0-0.8 Eos # 0.6 10 High 0.0-0.5 Baso # 0.1 10 Normal 0.0-0.2 Comprehensive Metabolic Profil 07/18/[address] [address] [phone] Glucose, Fasting 170 mg/dL High 70-100 Blood [...] Ratio 0.8 Low 1.2-2.2 Hemoglobin A1c 07/18/2020 [facility] nter [address] [place] [address] [phone] Hemoglobin A1c 7.2 % Normal 2 Estimated Average Glucose 160 mg/dL High 60-110 Lipid Panel 07/18/2020 [facility] nter [address] [place] [address] [phone] Triglycerides Level 90 mg/dL Normal <150 Cholesterol Level 116 mg/dL Normal <200 HDL Cholesterol 52 mg/dL Normal >40 LDL Cholesterol 46 mg/dL Normal <100 Non-HDL-C 64 mg/dL Normal Cholesterol Risk Ratio 2.230 Normal <5 Prothrombin Time/Inr 06/24/2020 [facility] Outpatient Test ing (Registration) [address] [place] [address] [phone] Prothrombin Time 14.7 seconds High 12.5-14.3 Inr 1.12 Normal 3 Laboratory test finding 06/24/2020 [facility] Outpatient T esting (Registration) [address] [place] [address] [phone] Erythrocyte Sedimentation Rate 32 mm/hr High 0 -30 Complete Blood Count 06/24/2020 [facility] Outpatient Test ing (Registration) [address] [place] [address] [phone] White Blood Count 4.6 10 Normal 4.0-10.0 [...] % Normal 0-0 Comprehensive Metabolic Profil 06/24/2020 [facility] Outpa tient Testing (Registration) [address] [place], [place] [phone] Glucose, Fasting 157 mg/dL High 70-100 Blood [...] 0.9 Low 1.2-2.2 Laboratory test finding 05/31/2020 [facility] Outpatient T esting (Registration) [address] [place] [address] [phone] Blood Urea Nitrogen 12 mg/dL Normal 7-18 Creatinine With GFR 05/31/2020 [facility] Outpatient Testi ng (Registration) [address] [place] [address] [phone] Creatinine For GFR 0.69 mg/dL Normal 0.55-1.30 Glomerular Filtration Rate > 60.0 Normal >45 5 Complete Blood Count 05/31/2020 [facility] Outpatient Test ing (Registration) [address] [place] [address] [phone] White Blood Count 6.2 10 Normal 4.0-10.0 [...] 0.0 % Normal 0-0 Prothrombin Time/Inr 05/31/2020 [facility] Outpatient Test ing (Registration) [address] [place] [address] [phone] Prothrombin Time 13.7 seconds Normal 12.5-14.3 Inr 1.03 Normal 6 Comprehensive Metabolic Profil 05/31/2020 [facility] Outpa tient Testing (Registration) [address] [place] [address] [phone] Glucose, Fasting 116 mg/dL High 70-100 Blood [...] 0.8 Low 1.2-2.2 Laboratory test finding 05/31/2020 [facility] Outpatient T esting (Registration) [address] [place] [address] [phone] Alpha Fetoprotein Tumor Quant 3.8 NG/ML Normal <8 .1 8 Laboratory test finding 04/26/[address] [address] [phone] Total 25(Oh) Vitamin D 37.2 NG/ML Normal 30.0-100. 0 Ferritin 30 NG/ML Normal 8-252 Iron (Fe) 124 g/dL Normal 50-170 Vitamin B12 Level 1823 pg/mL High 247-911 9 CBC With Differential 04/26/[address] [address] [phone] White Blood Count 5.9 10 Normal 4.0-10.0 [...] 36.0-66.0 Lymph % 28.8 % Normal 24.0-44.0 [place] % 7.5 % High 0.0-5.0 Eos % 10.2 % High 0.0-3.0 Baso % 1.2 % High 0.0-1.0 Immature Granulocyte % 0.2 % Normal 0-3.0 Nucleated Red Blood Cell % 0.0 % Normal 0-0 Neutrophils # 3.1 10 Normal 1.5-8.5 Lymph # 1.7 10 Normal 1.5-5.0 [place] # 0.4 10 Normal 0.0-0.8 Eos # 0.6 10 High 0.0-0.5 Baso # 0.1 10 Normal 0.0-0.2 Hemoglobin A1c 04/26/2020 [facility] nter [address] [place] [address] [phone] Hemoglobin A1c 6.6 % Normal 10 Estimated Average Glucose 143 mg/dL High 60-110 Laboratory test finding 04/26/[address] [address] [phone] Ammonia 24 uMOL/L Normal <32 Comprehensive Metabolic Profil 04/26/[address] [address] [phone] Glucose, Fasting 214 mg/dL High 70-100 Blood [...] 1.0 Low 1.2-2.2 Laboratory test finding 04/21/2020 [facility] Outpatient T esting (Registration) [address] [place] [address] [phone] Platelet Count, Automated 162 10 Normal 150-45 0 Prothrombin Time/Inr 04/21/2020 [facility] Outpatient Test ing (Registration) [address] [place] [address] [phone] Prothrombin Time 14.5 seconds High 11.8-14.0 Inr 1.10 Normal 12 Laboratory test finding 04/21/2020 [facility] Outpatient T esting (Registration) [address] [place] [address] [phone] Partial Thromboplastin Time 35.6 seconds Normal 25 .0-38.4 Laboratory test finding 02/10/[address] [address] [phone] Ammonia <pending> Laboratory test finding 02/10/[address] [address] [phone] Ferritin <pending> CBC With Differential 02/10/[address] [address] [phone] White Blood Count 6.0 10 Normal 4.0-10.0 [...] 36.0-66.0 Lymph % 30.5 % Normal 24.0-44.0 [place] % 8.6 % High 0.0-5.0 Eos % 11.1 % High 0.0-3.0 Baso % 1.0 % Normal 0.0-1.0 Immature Granulocyte % 0.2 % Normal 0-3.0 Nucleated Red Blood Cell % 0.0 % Normal 0-0 Neutrophils # 2.9 10 Normal 1.5-8.5 Lymph # 1.8 10 Normal 1.5-5.0 [place] # 0.5 10 Normal 0.0-0.8 Eos # 0.7 10 High 0.0-0.5 Baso # 0.1 10 Normal 0.0-0.2 Laboratory test finding 02/10/[address] [address] [phone] RBC Folate <pending> Vitamin D 25-Hydroxy <pending> Prothrombin Time/Inr 02/10/2020 [facility] enter [address] [place] [address] [phone] Prothrombin Time 14.3 seconds High 11.8-14.0 Inr 1.14 Normal 13 1 Units are mL/min/1.73 m2 Chronic Kidney Disease Staging per NKF: Stage I & II GFR >=60 Normal to Mildly Decreased Stage III GFR 30-59 Moderately Decreased Stage IV GFR 15-29 Severely Decreased Stage V GFR <15 Very Little GFR Left ESRD GFR <15 on VISUAL EDUCATION DIRECTOR 2 REFERENCE RANGES: <=5.6% NORMAL 5.7-6.4% SUGGESTS [...] Little GFR Left ESRD GFR <15 on VISUAL EDUCATION DIRECTOR 5 Units are mL/min/1.73 m2 Chronic Kidney Disease Staging per NKF: Stage I & II GFR >=60 Normal to Mildly Decreased Stage III GFR 30-59 Moderately Decreased Stage IV GFR 15-29 Severely Decreased Stage V GFR <15 Very Little GFR Left ESRD GFR <15 on VISUAL EDUCATION DIRECTOR 6 THERAPUTIC HUMAN INR VALUES INDICATIONS NORMAL [...] Little GFR Left ESRD GFR <15 on VISUAL EDUCATION DIRECTOR 8 THE AFP ASSAY IS PERFORMED O N THE [employer] BY CHEMILUMINESCENCE AND SHOULD NOT BE COMPARED [...] Little GFR Left ESRD GFR <15 on VISUAL EDUCATION DIRECTOR 12 THERAPUTIC HUMAN INR VALUES INDICATIONS NORMAL [...] Provider Dx Diagnosis Office Visit 08/02/2020 11:00a [facility] Erwin Kerr D.O. 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 08/02/2020 Z79.899 Other [facility] (current) drug t herapy Maggie Kerr, D.O. [...] 11/06/2020 10:00 am - [place] Kumar at [facility] Functional Status Description No Information Available Mental Status Description No Information Available Referrals Refer to Reason for Referral Status Appt [facility] This is a 65 year old female with chronic MDD. She is maintained on cymbalta 30 BID with 300 mg Wellbutrin and I have not been successful with weaning her cymbalta (she has liver disease and I would like her on a lower dose). Please evaluate and treat with her liver disease in mind. Created [address] [place] [address] [phone] Varun Mcduffie MD This is a 65 year old female with known renal calculis s/p lithotripsy with you. She is having hematuria but no pain. Please evaluate and treat. Created [id number] [place] [address] [place] [address] [phone]
--- OUTSIDE RECORDS SUMMARY | 2020-09-07 14:26 | CCD | Continuity of Care Document ---
Author Author Steff WILLIS P.A. 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 Name Role Phone Maggie Kerr DO AUTM [phone] Problems Active Problems Provider Date Type [...] SIG Qnty Indications Ordering Provide r Date Eliquis 2.5mg Tablets Take 1 Talbet By [...] H/L Range Note Comprehensive Metabolic Profil 06/24/2020 [facility] [address] [place] [address] (315)- - Glucose, Fasting 157 mg/dL High [...] 0.9 Low 1.2-2.2 Complete Blood Count 06/24/2020 [facility] entr [address] [place] [address] (315)- - White Blood Count 4.6 10 [...] % Normal 0-0 Laboratory test finding 06/24/2020 [facility] [address] [place] [address] (315)- - Erythrocyte Sedimentation Rate 32 mm/hr High 0-30 Prothrombin Time/Inr 06/24/2020 [facility] entr [address] [place] [address] (315)- - Prothrombin Time 14.7 seconds High 12.5-14.3 Inr 1.12 Normal 2 Order 06/14/2020 [facility] [address] [facility] [address] [place] [address] HHH Injections <pending> Creatinine With GFR 05/31/2020 [facility] [address] [place] [address] (315)- - Creatinine For GFR 0.69 mg/dL Normal 0.55-1.30 Glomerular Filtration Rate > 60.0 Normal >45 3 Laboratory test finding 05/31/2020 [facility] [address] [place] [address] (315)- - Blood Urea Nitrogen 12 mg/dL Normal 7-18 Laboratory test finding 04/21/2020 [facility] [address] [place] [address] (315)- - Coronavirus 2019 Nasopharygeal This test was de <SEE NOTE> 4 Partial Thromboplastin Time 04/21/2020 [facility] [address] [place] [address] (315)- - Prothrombin Time 14.5 seconds High 11.8-14.0 Inr 1.10 Normal 5 Partial Thromboplastin Time 35.6 seconds Normal 25.0-38.4 Laboratory test finding 04/21/2020 [facility] [address] [place] [address] (315)- - Platelet Count, Automated 162 10 Normal 150-450 Partial Thromboplastin Time <pending> CBC With Differential 04/20/2020 [facility] [address] [place] [address] (315)- - White Blood Count 10.8 10 [...] 36.0-66.0 Lymph % 9.3 % Low 24.0-44.0 [place] % 2.1 % Normal 0.0-5.0 Eos % 0.0 % Normal 0.0-3.0 Baso % 0.1 % Normal 0.0-1.0 Immature Granulocyte % 1.1 % Normal 0-3.0 Nucleated Red Blood Cell % 0.0 % Normal 0-0 Neutrophils # 9.4 10 High 1.5-8.5 Lymph # 1.0 10 Low 1.5-5.0 [place] # 0.2 10 Normal 0.0-0.8 Eos # 0.0 10 Normal 0.0-0.5 Baso # 0.0 10 Normal 0.0-0.2 Laboratory test finding 04/20/2020 [facility] [address] [place] [address] (315)- - Erythrocyte Sedimentation Rate 38 mm/hr High 0-30 Laboratory test finding 03/15/2020 [facility] [address] [place] [address] (315)- - Coronavirus 2019 Nasopharygeal Testing was perf <SEE NOTE> 7 Laboratory test finding 03/05/2020 [facility] [address] [place] [address] (315)- - Adrenal Antibodies See Separate Rep <SEE NOTE> Normal 8 Estradiol Sensitive LC/MS See Separate Rep <SEE NOTE> Normal 9 Testosterone Free & Total 03/05/2020 [facility] [address] [place] [address] (315)- - Testosterone Free (Direct) See Separate Rep <SEE NOTE> pg/mL Normal 10 Testosterone Total For T&D See Separate Rep <SEE NOTE> ng/dL Normal 11 Laboratory test finding 03/05/2020 [facility] [address] [place] [address] (315)- - 21 Hydroxylase Antibody SEE SEPARATE REP <SEE NOTE> Cadence l 12 1 Units are mL/min/1.73 m2 Chronic Kidney Disease Staging per NKF: Stage I & II GFR >=60 Normal to Mildly Decreased Stage III GFR 30-59 Moderately Decreased Stage IV GFR 15-29 Severely Decreased Stage V GFR <15 Very Little GFR Left ESRD GFR <15 on LEAD TELLER 2 THERAPUTIC HUMAN INR VALUES INDICATIONS NORMAL [...] Little GFR Left ESRD GFR <15 on LEAD TELLER 4 This test was developed and its performance characteristics determined by [employer]. This test has not been FDA cleared [...] detected) result in this assay. Performed at: [address] [id number] Wrap Checker: Sheri Mcclellan MD, Phone: [phone] Not Detected 5 THERAPUTIC HUMAN INR VALUES [...] developed and its performance characteristics determined by [employer]. This test has not been FDA cleared [...] detected) result in this assay. Performed at: [address] [id number] Wrap Checker: Sheri Mcclellan MD, Phone: [phone] Not Detected 8 See Separate Report Testing performed at reference lab . Report copy to follow on a separate form. 04/20/20 REF LAB#:[id number] See Separate Report 10 See Separate Report 11 See Separate Report 12 SEE SEPARATE REPORT Procedures Date Code Description Status 07/05/2020 79574 Arthroplasty "Total Knee" Medial & Lateral W/ Or W/O Patella Resu Completed 07/05/2020 74230 Arthroplasty "Total Knee" Medial & Lateral W/ Or W/O Patella Resu Completed 04/26/2020 37748 Moderate Sedation Se rvices; Same Phys Intl 15 Mins; PT >= 5 Years Completed 04/26/2020 03618 Epidurography Radiological Super vision & Interpretation Completed 04/26/2020 00372 Injec Anesthetic Age nt/Steroid Trans Epidural Lumb/Sacral Single Completed 04/11/2020 82606 X-Ray Knee Complete W/Obliques & Tunnel And/Or Standing Views Completed 04/11/2020 40006 X-Ray Knee Complete W/Obliques & Tunnel And/Or Standing Views Completed 04/11/2020 75756 X-Ray Knee Complete W/Obliques & Tunnel And/Or Standing Views Completed 03/19/2020 10843 Moderate Sedation Se rvices; Same Phys Intl 15 Mins; PT >= 5 Years Completed 03/19/2020 89467 Epidurography Radiological Super vision & Interpretation Completed 03/19/2020 72069 Injec Anesthetic Age nt/Steroid Trans Epidural Lumb/Sacral Single Completed 02/03/2020 25193 Inject/Drain Joint/Bursa Major C ompleted Medical Devices Description No Information Available Encounters Type Date Location Provider Dx Diagnosis Office Visit 07/02/2020 10:[facility]a [facility] Z01.818 Encounter for other preprocedural [...] high cervical region Office Visit 04/11/2020 9:15a oTni Falcon MD M17.0 Bilateral primary osteoarthritis of knee Office Visit 04/05/2020 9:15a [place] Vinson M51.37 Other intervertebral disc degeneration, lumbosacral region M51.27 Other intervertebral disc di splacement, lumbosacral region M47.27 Other spondylosis with radic ulopathy, lumbosacral region M48.07 Spinal stenosis, lumbosacral region M43.16 Spondylolisthesis, lumbar re gion Office Visit 02/03/2020 11:15a [place] Twin Falcon MD M17.0 Bilateral primary osteoarthritis of knee Assessments Date Code Description Provider 07/12/2020 Z47.1 Aftercare following joint replac ement [...] disc displa cement, lumbosacral region [place] Crocker 06/13/2020 M47.27 Other spondylosis with radiculop athy, lumbosacral region [place] Crocker 06/13/2020 M48.07 Spinal stenosis, lumbosacral reg ion [place] Crocker 06/13/2020 M43.16 Spondylolisthesis, lumbar region [place] Crocker 06/13/2020 M48.02 Spinal stenosis, cervical region [place] Crocker 06/13/2020 M47.892 Other spondylosis, cervical juan miguel on [place] Crocker 06/13/2020 M50.31 Other cervical disc degeneration , high cervical region Stanley Pili, PA 05/14/2020 M51.37 Other intervertebral disc degene ration, lumbosacral region [facility] 05/14/2020 M51.27 Other intervertebral disc displa cement, lumbosacral region [facility] [place], [place] 05/14/2020 M47.27 Other spondylosis with radiculop athy, lumbosacral region [facility], [place] 05/14/2020 M48.07 Spinal stenosis, lumbosacral reg ion Stanley Arely [place], [place] 05/14/2020 M43.16 Spondylolisthesis, lumbar region [facility], [place] 05/14/2020 M48.02 Spinal stenosis, cervical region [facility], [place] 05/14/2020 M47.892 Other spondylosis, cervical juan miguel on Stanleysnehal [place], [place] 05/14/2020 M50.31 Other cervical disc degeneration , high cervical region Stanley Pili, [place] 04/26/2020 M51.26 Other intervertebral disc displa cement, lumbar region Darian Darnell MD 04/26/2020 M48.061 Spinal stenosis, lum bar region without neurogenic claudication Darian Darnell MD 04/11/2020 M17.0 Bilateral primary osteoarthritis of knee Twin Falcon MD 04/05/2020 M51.37 Other intervertebral disc degene ration, lumbosacral region Stanley Pili, PA 04/05/2020 M51.27 Other intervertebral disc displa cement, lumbosacral region [facility] [place], [place] 04/05/2020 M47.27 Other spondylosis with radiculop athy, lumbosacral region [facility], [place] 04/05/2020 M48.07 Spinal stenosis, lumbosacral reg ion [facility] [place], [place] 04/05/2020 M43.16 Spondylolisthesis, lumbar region [facility], [place] 03/19/2020 M51.26 Other intervertebral disc displa cement, lumbar region Darian Darnell MD 03/19/2020 M48.061 Spinal stenosis, lum bar region without neurogenic claudication Darian Darnell MD 02/03/2020 M17.0 Bilateral primary osteoarthritis of knee Twin Falcon MD 02/03/2020 M17.0 Bilateral primary osteoarthritis of knee Twin Falcon MD Plan of Treatment Future Appointment(s):* 07/18/2020 1:00 pm - Twin Falcon MD at [facility] 07/12/2020 - Royce Willis, PMirA.* Z47.1 Aftercare following joint replacement surgery * Z96.651 Presence of right artificial knee joint * M79.661 Pain in right lower leg Functional Status Description No Information Available Mental Status Description No Information Available Referrals Refer to Dr Reason for Referral Status Appt Date Darian Darnell MD SURGERY PER [facility] AT [facility] FOR TOTAL RT KNEE(14012) TO SURGERY NT Created [address] [place] [address] [phone] Darian Darnell MD JL [facility]([id number], [id number], [place] D [id number]) PER [facility] NO AUTH REQUIRED OT SCHEDULING NT Created [address] [place], [place] [address] [phone] Darian Darnell MD [facility]([id number] [place] [id number]) PER [facility] NO AUTH REQUIRED TO SURGERY NT Created [address] [place] [phone] [phone] Twin Falcon MD [facility] [id number] SHORTRUNNER AIRMES H OPEN BACK X2 (LEFT AND RIGHT) NO AUTH REQUIRED PER CRISELDA Mcgee REF#[id number]. LM Created [address] [place], [place] [address] [phone]
--- OUTSIDE RECORDS SUMMARY | 2020-09-07 14:26 | CCD | Continuity of Care Document ---
Author Author Steff THOMSON PA Organization Unknown Address [id number] [place] [address] 6 [address] [place] [address] Phone [phone] Care Team Providers Care Assembly Lead Person Name Role Phone Maggie Kerr D.O. AUTM [phone] Darian Darnell MD AUTM [phone] Problems Active Problems Provider Date Essential hypertension [...] Use Denies Drug Use Smoking Status Reviewed: 07/02/20 Patient is a former smoker Exercise Type/Frequency [...] at bedtime as needed for pain istop [id number] 30tabs M25.511 Kely NegronOMir 03/18/2019 Bupropion Hydrochloride ER (XL) 300mg Tablets ER 24HR Take One Tablet By Mouth Every Morning 30tabs F33.1 Bella Gallego.O. 03/17/2019 Triamcinolone Acetonide 0.1% Cream Apply To Affected Area(S) On Lower Leg And Left Hand Two Times A Day For 7 Days Then as Needed For Flare Ups 80units Z68.37 Kely Negron O. 11/08/2018 Atenolol 25mg Tablets take one tablet by mouth every day 30tabs Kely NegronO. 11/09 Xifaxan 550mg Tablets one tablet by mouth twice per day Unknown Propranolol HCL ER 60mg Caps ER 24HR 90caps Kely NegronO. Dicyclomine HCL 10mg Capsules 1-2 tablets every 6 hours as needed for loose stools, hold for constipation Unknown Ranitidine HCL 150mg Tablets take 1 tablet by mouth twice a day if needed Unknown 0 Glipizide 5mg Tablets Take One Tablet By Mouth Three Times A Day 270tabs Kely Negron O. Oxybutynin Chloride ER 5mg Tablets ER 24HR 1 by mouth every day Unknown 000 Terconazole 0.4% Cream apply when needed 45gm Kely NegronO. Pantoprazole Sodium 40mg Tablets D R 1 by mouth every day Unknown Ketoconazole 2% Shampoo use twice weekly as shampoo Unknown Mupirocin 2% Ointment 1 apply to nasal passages three times daily 5 days prior to surgery Unknown Spironolactone 25mg Tablets Take One Tablet By Mouth Every Day 30tabs Kely NegronO. Citracal Plus Tablets 1 b y mouth daily Unknown Montelukast Sodium 10mg Tablets Take One Tablet By Mouth Every Day 90tabs J30.9 Kely NegronO. Magnesium Oxide 400mg Capsules 1 by mouth every day at bedtime Unknown Cetirizine HCL 10mg Tablets 1 by mouth every day Unknown Cpap Unknown Accu-Chek Ama Plus Strips to be used with glucometer to test blood glucose once daily Unknown Proair HFA 108(90Base) mcg/Act Aer osol 2 puffs as needed Unknown Lancets Misc 1 as directed Unknown BD Ultra-Fine Micro Pen [place] 6mm X 32 G 32G X 6 mm Misc Use twice a day with lantus Unknown Cyclobenzaprine HCL 10mg Tablets Take One Tablet By Mouth Three Times A Day as Needed (Maximum Daily Dose = 3) 270tabs Maggie Kerr D.O. History Medications Bactroban 2% Cream apply right armevery 12 hours for seven days 30gm L03.113 Bella Negron.O. 06/07/2020 - 07/02/2020 Medications Administered in Office Medication SIG Qnty Indications Ordering Provider Date Immunization Administration Single Or Co mbination Injection Bella Negron .O. 07/02/2017 Immunizations CPT Code Status Date Vaccine Lot # U-Flu Given 05/26/2019 Influenza,Unspecified [id number] Given 07/02/2017 Influenza Vaccin e Quadrivalent Preser/Antibiotic Free Im Use [id number] Vital Signs Date Vital Result Comment 07/02/2020 2:10pm BP Systolic 126 mmHg BP Diastolic 74 mmHg Height 66.4 inches 5'6.40" Weight 219.50 lb BMI (Body Mass Index) 35.0 kg/m2 Heart Rate 61 /min Respiratory Rate 18 /min Body Temperature 97.4 F O2 % BldC Oximetry 97 % [place] Body Weight 130 lb 06/07/2020 9:42am BP Systolic 128 mmHg BP Diastolic 78 mmHg Height 66.4 inches 5'6.40" Weight 221.12 lb BMI (Body Mass Index) 35.3 kg/m2 Heart Rate 65 /min Respiratory Rate 16 /min Body Temperature 97.2 F O2 % BldC Oximetry 98 % [place] Body Weight 130 lb Results Test Acquired Date Facility Test Result H/L Range Note Comprehensive Metabolic Profil 06/24/2020 [facility] Outpa tient Testing (Registration) [address] [place] [address] [phone] Glucose, Fasting 157 mg/dL High 70-100 Blood [...] 0.9 Low 1.2-2.2 Complete Blood Count 06/24/2020 [facility] Outpatient Test ing (Registration) [address] [place] [address] [phone] White Blood Count 4.6 10 Normal 4.0-10.0 [...] % Normal 0-0 Laboratory test finding 06/24/2020 [facility] Outpatient T esting (Registration) [address] [place] [address] [phone] Erythrocyte Sedimentation Rate 32 mm/hr High 0 -30 Prothrombin Time/Inr 06/24/2020 [facility] Outpatient Test ing (Registration) [address] [place], [place] [address] [phone] Prothrombin Time 14.7 seconds High 12.5-14.3 Inr 1.12 Normal 2 Laboratory test finding 05/31/2020 [facility] Outpatient T esting (Registration) [address] [place] [address] [phone] Blood Urea Nitrogen 12 mg/dL Normal 7-18 Creatinine With GFR 05/31/2020 [facility] Outpatient Testi ng (Registration) [address] [place] [address] [phone] Creatinine For GFR 0.69 mg/dL Normal 0.55-1.30 Glomerular Filtration Rate > 60.0 Normal >45 3 Complete Blood Count 05/31/2020 [facility] Outpatient Test ing (Registration) [address] [place] [address] [phone] White Blood Count 6.2 10 Normal 4.0-10.0 [...] 0.0 % Normal 0-0 Prothrombin Time/Inr 05/31/2020 [facility] Outpatient Test ing (Registration) [address] [place] [address] [phone] Prothrombin Time 13.7 seconds Normal 12.5-14.3 Inr 1.03 Normal 4 Comprehensive Metabolic Profil 05/31/2020 [facility] Outpa tient Testing (Registration) [address] [place] [address] [phone] Glucose, Fasting 116 mg/dL High 70-100 Blood Urea Nitrogen 12 mg/dL Normal 7-18 Creatinine For GFR 0.64 mg/dL Normal 0.55-1.30 Glomerular Filtration Rate > 60.0 Normal >45 5 Sodium Level 141 mEq/L Normal 136-145 Potassium [...] 0.8 Low 1.2-2.2 Laboratory test finding 05/31/2020 [facility] Outpatient T esting (Registration) [address] [place] [address] [phone] Alpha Fetoprotein Tumor Quant 3.8 NG/ML Normal <8 .1 6 Comprehensive Metabolic Profil 04/26/[address] [address] [phone] Glucose, Fasting 214 mg/dL High 70-100 Blood Urea Nitrogen 11 mg/dL Normal 7-18 Creatinine For GFR 0.76 mg/dL Normal 0.55-1.30 Glomerular Filtration Rate > 60.0 Normal >45 7 Sodium Level 140 mEq/L Normal 136-145 Potassium [...] Ratio 1.0 Low 1.2-2.2 Laboratory test finding 04/26/[address] [address] [phone] Ammonia 24 uMOL/L Normal <32 Hemoglobin A1c 04/26/2020 [facility] nter [address] [place] [address] [phone] Hemoglobin A1c 6.6 % Normal 8 Estimated Average Glucose 143 mg/dL High 60-110 CBC With Differential 04/26/[address] [address] [phone] White Blood Count 5.9 10 Normal 4.0-10.0 [...] 36.0-66.0 Lymph % 28.8 % Normal 24.0-44.0 [place] % 7.5 % High 0.0-5.0 Eos % 10.2 % High 0.0-3.0 Baso % 1.2 % High 0.0-1.0 Immature Granulocyte % 0.2 % Normal 0-3.0 Nucleated Red Blood Cell % 0.0 % Normal 0-0 Neutrophils # 3.1 10 Normal 1.5-8.5 Lymph # 1.7 10 Normal 1.5-5.0 [place]inn # 0.4 10 Normal 0.0-0.8 Eos # 0.6 10 High 0.0-0.5 Baso # 0.1 10 Normal 0.0-0.2 Laboratory test finding 04/26/[address] [address] [phone] Total 25(Oh) Vitamin D 37.2 NG/ML Normal 30.0-100. 0 Ferritin 30 NG/ML Normal 8-252 Iron (Fe) 124 g/dL Normal 50-170 Vitamin B12 Level 1823 pg/mL High 247-911 9 Laboratory test finding 04/21/2020 [facility] [place] (Registration) [address] [place] [address] [phone] Partial Thromboplastin Time 35.6 seconds Normal 25 .0-38.4 Prothrombin Time/Inr 04/21/2020 [facility] Outpatient Test ing (Registration) [address] [place] [address] [phone] Prothrombin Time 14.5 seconds High 11.8-14.0 Inr 1.10 Normal 10 Laboratory test finding 04/21/2020 [facility] Outpatient T esting (Registration) [address] [place] [address] [phone] Platelet Count, Automated 162 10 Normal 150-45 0 Laboratory test finding 02/10/[address] [address] [phone] Ammonia <pending> Laboratory test finding 02/10/[address] [address] [phone] Ferritin <pending> CBC With Differential 02/10/[address] [address] [phone] White Blood Count 6.0 10 Normal 4.0-10.0 [...] 36.0-66.0 Lymph % 30.5 % Normal 24.0-44.0 [place]inn % 8.6 % High 0.0-5.0 Eos % 11.1 % High 0.0-3.0 Baso % 1.0 % Normal 0.0-1.0 Immature Granulocyte % 0.2 % Normal 0-3.0 Nucleated Red Blood Cell % 0.0 % Normal 0-0 Neutrophils # 2.9 10 Normal 1.5-8.5 Lymph # 1.8 10 Normal 1.5-5.0 Linn # 0.5 10 Normal 0.0-0.8 Eos # 0.7 10 High 0.0-0.5 Baso # 0.1 10 Normal 0.0-0.2 Laboratory test finding 02/10/2020 [facility] [address] [place] [address] [phone] RBC Folate <pending> Vitamin D 25-Hydroxy <pending> Prothrombin Time/Inr 02/10/2020 [facility] medical c enter [address] [place] [address] [phone] Prothrombin Time 14.3 seconds High 11.8-14.0 Inr 1.14 Normal 11 CBC With Differential 01/23/2020 [facility] Outpatient [place] (Registration) [address] [place] [address] [phone] White Blood Count 5.2 10 Normal 4.0-10.0 Red Blood Count 4.02 10 Normal 4.00-5.40 Hemoglobin 13.7 g/dL Normal 12.0-15.5 Hematocrit 39.4 % Normal 36.0-47.0 Mean Corpuscular Volume 98.0 fl High 80.0-96.0 Mean Corpuscular Hemoglobin 34.1 pg High 27.0-33.0 Mean Corpuscular HGB Conc 34.8 g/dL Normal 32.0-36.5 Red Cell Distribution Width 13.1 % Normal 11.5-14.5 Platelet Count, Automated 161 10 Normal 150-450 Neutrophils % 50.5 % Normal 36.0-66.0 Lymph % 26.1 % Normal 24.0-44.0 Linn % 9.3 % High 0.0-5.0 Eos % 11.8 % High 0.0-3.0 Baso % 2.1 % High 0.0-1.0 Immature Granulocyte % 0.2 % Normal 0-3.0 Nucleated Red Blood Cell % 0.0 % Normal 0-0 Neutrophils # 2.6 10 Normal 1.5-8.5 Lymph # 1.4 10 Low 1.5-5.0 Linn # 0.5 10 Normal 0.0-0.8 Eos # 0.6 10 High 0.0-0.5 Baso # 0.1 10 Normal 0.0-0.2 Laboratory test finding 01/23/2020 [facility] Outpatient T esting (Registration) [address] [place] [address] [phone] Ammonia 58 uMOL/L High <32 Comprehensive Metabolic Profil 01/23/2020 [facility] Outpa tient Testing (Registration) [address] [place] [address] [phone] Glucose, Fasting 161 mg/dL High 70-100 Blood Urea Nitrogen 14 mg/dL Normal 7-18 Creatinine For GFR 0.70 mg/dL Normal 0.55-1.30 Glomerular Filtration Rate > 60.0 Normal >45 1 2 Sodium Level 148 mEq/L High 136-145 Potassium Serum 4.1 mEq/L Normal 3.5-5.1 Chloride Level 114 mEq/L High 98-107 Carbon Dioxide Level 28 mEq/L Normal 21-32 Anion Gap 6 mEq/L Low 8-16 Calcium Level 8.9 mg/dL Normal 8.8-10.2 Ast/Sgot 36 U/L Normal 7-37 Alt/SGPT 47 U/L Normal 12-78 Alkaline Phosphatase 113 U/L Normal 45-117 Bilirubin,Total 0.7 mg/dL Normal 0.2-1.0 Total Protein 7.5 GM/DL Normal 6.4-8.2 Albumin 3.4 GM/DL Normal 3.2-5.2 Albumin/Globulin Ratio 0.8 Low 1.2-2.2 Lipid Panel 01/23/2020 [facility] Outpatient Testi ng (Registration) [address] [place] [address] [phone] Triglycerides Level 51 mg/dL Normal <150 Cholesterol Level 128 mg/dL Normal <200 HDL Cholesterol 62 mg/dL Normal >40 LDL Cholesterol 56 mg/dL Normal <100 Non-HDL-C 66 mg/dL Normal Cholesterol Risk Ratio 2.064 Normal <5 FT4&TSH Panel 01/23/2020 [facility] Outpatient Testi ng (Registration) [address] [place] [address] [phone] Thyroid Stimulating Hormone 2.460 uIU/ML Normal 0. 358-3.740 Free T4 0.71 ng/dL Low 0.76-1.46 Hemoglobin A1c 01/23/2020 [facility] Outpatient Testi ng (Registration) [address] [place] [id number] [phone] Hemoglobin A1c 6.9 % Normal 13 Estimated Average Glucose 151 mg/dL High 60-110 1 Units are mL/min/1.73 m2 Chronic Kidney Disease Staging per NKF: Stage I & II GFR >=60 Normal to Mildly Decreased Stage III GFR 30-59 Moderately Decreased Stage IV GFR 15-29 Severely Decreased Stage V GFR <15 Very Little GFR Left ESRD GFR <15 on ETL PROGRAMMER 2 THERAPUTIC HUMAN INR VALUES INDICATIONS NORMAL [...] Little GFR Left ESRD GFR <15 on ETL PROGRAMMER 4 THERAPUTIC HUMAN INR VALUES INDICATIONS NORMAL RANGES PROPHYLAXIS/TREATMENT OF: VENOUS THROMBOSIS 2.0-3.0 PULMONARY EMBOLISM 2.0-3.0 PREVENTION OF SYSTEMIC EMBOLISM FROM: TISSUE HEART VALVES 2.0-3.0 ACUTE MYOCARDIAL INFARCTION 2.0-3.0 VALVULAR HEART DISEASE 2.0-3.0 ATRIAL FIBRILLATION 2.0-3.0 MECHANICAL VALVES(HIGH RISK) 2.5-3.5 RECURRENT MYOCARDIAL INFARCTION 2.5-3.5 5 Units are mL/min/1.73 m2 Chronic Kidney Disease Staging per NKF: Stage I & II GFR >=60 Normal to Mildly Decreased Stage III GFR 30-59 Moderately Decreased Stage IV GFR 15-29 Severely Decreased Stage V GFR <15 Very Little GFR Left ESRD GFR <15 on ETL PROGRAMMER 6 THE AFP ASSAY IS PERFORMED O N THE OccipitalR BY CHEMILUMINESCENCE AND SHOULD NOT BE COMPARED INTERCHANGEABLY WITH OTHER METHODS. IT SHOULD NOT BE USED ALONE A SCREENING TEST OR DIAGNOSIS FOR THE PRESENCE OR ABSENCE OF MALIGNANT DISEASE. THESE RESULTS ARE NOT INTERPRETABLE IN FEMALES. PREDICTIONS OF DISEASE RECURRENCE SHOULD NOT BE BASED SOLELY ON VALUES OBTAINED FROM SERIAL PATIENT SERUM VALUES. 7 Units are mL/min/1.73 m2 Chronic Kidney Disease Staging per NKF: Stage I & II GFR >=60 Normal to Mildly Decreased Stage III GFR 30-59 Moderately Decreased Stage IV GFR 15-29 Severely Decreased Stage V GFR <15 Very Little GFR Left ESRD GFR <15 on ETL PROGRAMMER 8 REFERENCE RANGES: <=5.6% NORMAL 5.7-6.4% SUGGESTS IMPAIRED GLUCOSE META BOLISM/PREDIABETIC >= 6.5% ABNORMAL 9 VITAMIN B12 NORMAL RANGE NORMAL 247 - 911 PG/ML INDETERMINATE 211 - 246 PG/ML DEFICIENT LESS THAN 211 PG/ML 10 THERAPUTIC HUMAN INR VALUES INDICATIONS NORMAL RANGES PROPHYLAXIS/TREATMENT OF: VENOUS THROMBOSIS 2.0-3.0 PULMONARY EMBOLISM 2.0-3.0 PREVENTION OF SYSTEMIC EMBOLISM FROM: TISSUE HEART VALVES 2.0-3.0 ACUTE MYOCARDIAL INFARCTION 2.0-3.0 VALVULAR HEART DISEASE 2.0-3.0 ATRIAL FIBRILLATION 2.0-3.0 MECHANICAL VALVES(HIGH RISK) 2.5-3.5 RECURRENT MYOCARDIAL INFARCTION 2.5-3.5 11 THERAPUTIC HUMAN INR VALUES INDICATIONS NORMAL RANGES PROPHYLAXIS/TREATMENT OF: VENOUS THROMBOSIS 2.0-3.0 PULMONARY EMBOLISM 2.0-3.0 PREVENTION OF SYSTEMIC EMBOLISM FROM: TISSUE HEART VALVES 2.0-3.0 ACUTE MYOCARDIAL INFARCTION 2.0-3.0 VALVULAR HEART DISEASE 2.0-3.0 ATRIAL FIBRILLATION 2.0-3.0 MECHANICAL VALVES(HIGH RISK) 2.5-3.5 RECURRENT MYOCARDIAL INFARCTION 2.5-3.5 12 Units are mL/min/1.73 m2 Chronic Kidney Disease Staging per NKF: Stage I & II GFR >=60 Normal to Mildly Decreased Stage III GFR 30-59 Moderately Decreased Stage IV GFR 15-29 Severely Decreased Stage V GFR <15 Very Little GFR Left ESRD GFR <15 on ETL PROGRAMMER 13 REFERENCE RANGES: 4.5-5.6% NORMAL 5.7-6.4% SUGGESTS IMPAIRED GLUCOSE META BOLISM >= 6.5% ABNORMAL Procedures Description No Information Available Medical Devices Description No Information Available Encounters Type Date Location Provider Dx Diagnosis Office Visit 07/02/2020 2:00p [facility] [place] Kumar Z01.818 Encounter for other preproce dural examination 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 01/25/2020 I10 Essential (primary) hypertension Maggie Kerr D.O. 01/25/2020 Z98.84 Bariatric surgery status Kely GrayOMir 01/25/2020 F33.1 Major depressive disorder, recur rent, moderate Maggie Sharif D.O. 01/25/2020 E11.9 Type 2 diabetes mellitus without complications Maggie Sharif D.O. 01/25/2020 G47.33 Obstructive sleep apnea (adult) (pediatric) Maggie Sharif D.O. 01/25/2020 G93.41 Metabolic encephalopathy Maggie Connell D.O. 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 01/25/2020 Z79.899 Other fpc (current) drug t herapy Maggie Kerr D.O. 01/25/2020 K02.9 Dental caries, unspecified Maggie Kerr D.O. Plan of Treatment Future Appointment(s):* 07/31/2020 10:30 am - Maggie Kerr D.O. at [facility] 07/02/2020 - [place]* Z01.818 Encounter for other preprocedural examination* New Medication:* Anastrozole 1 mg - 1 by mouth every day * Comments:* Your exam was unremarkable today, and you are deemed medically optimized for your upcoming procedure and at low risk. Do not take your glipizide, metformin or spironolactone the day before or the day of surgery. Call for any concerns. Bring your CPAP to surgery. * Follow up:* As already scheduled. * M12.861 Other specific arthropathies, not elsewhere classified, right knee Functional Status Description No Information Available Mental Status Description No Information Available Referrals Description No Information Available
--- OUTSIDE RECORDS SUMMARY | 2020-09-07 14:26 | CCD | Continuity of Care Document ---
Author Author Steff THOMSON PA Organization Unknown Address [address] [place] [address] 6 [address] [place] [address] Phone [phone] Care Team Providers Care Supervisor Nurse Name Role Phone Maggie Kerr D.O. AUTM Darian Darnell MD AUTM [phone] Problems Active Problems Provider Date Essential hypertension [...] at bedtime as needed for pain istop [id number] 30tabs M25.511 Kely NegronOMir 03/18/2019 Bupropion Hydrochloride [...] tablet by mouth every day 30tabs Kely NgeronO. 11/09 Xifaxan 550mg Tablets one tablet by [...] as directed Unknown BD Ultra-Fine Micro Pen [place] 6mm X 32 G 32G X 6 [...] Vaccine Lot # U-Flu Given 05/26/2019 Influenza,Unspecified [id number] Given 07/02/2017 Influenza Vaccin e Quadrivalent Preser/Antibiotic Free Im Use [id number] Vital Signs Date Vital Result Comment 07/02/2020 2:10pm BP Systolic 126 mmHg BP Diastolic 74 mmHg Height 66.4 inches 5'6.40" Weight 219.50 lb BMI (Body Mass Index) 35.0 kg/m2 Heart Rate 61 /min Respiratory Rate 18 /min Body Temperature 97.4 F O2 % BldC Oximetry 97 % [place] Body Weight 130 lb 06/07/2020 9:42am BP Systolic 128 mmHg BP Diastolic 78 mmHg Height 66.4 inches 5'6.40" Weight 221.12 lb BMI (Body Mass Index) 35.3 kg/m2 Heart Rate 65 /min Respiratory Rate 16 /min Body Temperature 97.2 F O2 % BldC Oximetry 98 % [place] Body Weight 130 lb Results Test Acquired Date Facility Test Result H/L Range Note Laboratory test finding 07/18/2020 [facility] [address] [place] [address] [phone] Ammonia 55 uMOL/L High <32 CBC With Differential 07/18/[address] [address] [phone] White Blood Count 6.1 10 Normal 4.0-10.0 [...] 36.0-66.0 Lymph % 21.0 % Low 24.0-44.0 Colbert % 8.9 % High 0.0-5.0 Eos % 10.3 % High 0.0-3.0 Baso % 1.0 % Normal 0.0-1.0 Immature Granulocyte % 0.5 % Normal 0-3.0 Nucleated Red Blood Cell % 0.0 % Normal 0-0 Neutrophils # 3.6 10 Normal 1.5-8.5 Lymph # 1.3 10 Low 1.5-5.0 Colbert # 0.5 10 Normal 0.0-0.8 Eos # 0.6 10 High 0.0-0.5 Baso # 0.1 10 Normal 0.0-0.2 Comprehensive Metabolic Profil 07/18/[address] [address] [phone] Glucose, Fasting 170 mg/dL High 70-100 Blood [...] Ratio 0.8 Low 1.2-2.2 Hemoglobin A1c 07/18/2020 [facility] [address] [place] [address] [phone] Hemoglobin A1c 7.2 % Normal 2 Estimated Average Glucose 160 mg/dL High 60-110 Lipid Panel 07/18/2020 [facility] [address] [place] [address] [phone] Triglycerides Level 90 mg/dL Normal <150 Cholesterol Level 116 mg/dL Normal <200 HDL Cholesterol 52 mg/dL Normal >40 LDL Cholesterol 46 mg/dL Normal <100 Non-HDL-C 64 mg/dL Normal Cholesterol Risk Ratio 2.230 Normal <5 Prothrombin Time/Inr 06/24/2020 [facility] Outpatient Test ing (Registration) [address] [place] [address] [phone] Prothrombin Time 14.7 seconds High 12.5-14.3 Inr 1.12 Normal 3 Laboratory test finding 06/24/2020 [facility] Outpatient T esting (Registration) [address] [place] [address] [phone] Erythrocyte Sedimentation Rate 32 mm/hr High 0 -30 Complete Blood Count 06/24/2020 [facility] Outpatient Test ing (Registration) [address] [place] [address] [phone] White Blood Count 4.6 10 Normal 4.0-10.0 [...] % Normal 0-0 Comprehensive Metabolic Profil 06/24/2020 [facility] Outpa tient Testing (Registration) [address] [place] [address] [phone] Glucose, Fasting 157 mg/dL High 70-100 Blood [...] 0.9 Low 1.2-2.2 Laboratory test finding 05/31/2020 [facility] Outpatient T esting (Registration) [address] [place], [place] [phone] Blood Urea Nitrogen 12 mg/dL Normal 7-18 Creatinine With GFR 05/31/2020 [facility] Outpatient Testi ng (Registration) [address] [place] [address] [phone] Creatinine For GFR 0.69 mg/dL Normal 0.55-1.30 Glomerular Filtration Rate > 60.0 Normal >45 5 Complete Blood Count 05/31/2020 [facility] Outpatient Test ing (Registration) [address] [place] [address] [phone] White Blood Count 6.2 10 Normal 4.0-10.0 [...] 0.0 % Normal 0-0 Prothrombin Time/Inr 05/31/2020 [facility] Outpatient Test ing (Registration) [address] [place] [address] [phone] Prothrombin Time 13.7 seconds Normal 12.5-14.3 Inr 1.03 Normal 6 Comprehensive Metabolic Profil 05/31/2020 [facility] Outpa tient Testing (Registration) [address] [place] [address] [phone] Glucose, Fasting 116 mg/dL High 70-100 Blood [...] 0.8 Low 1.2-2.2 Laboratory test finding 05/31/2020 [facility] Outpatient T esting (Registration) [address] [place] [address] [phone] Alpha Fetoprotein Tumor Quant 3.8 NG/ML Normal <8 .1 8 Laboratory test finding 04/26/[address] [phone] Total 25(Oh) Vitamin D 37.2 NG/ML Normal 30.0-100. 0 Ferritin 30 NG/ML Normal 8-252 Iron (Fe) 124 g/dL Normal 50-170 Vitamin B12 Level 1823 pg/mL High 247-911 9 CBC With Differential 04/26/2020 [facility] [address] [place] [address] [phone] White Blood Count 5.9 10 Normal 4.0-10.0 [...] 36.0-66.0 Lymph % 28.8 % Normal 24.0-44.0 Colbert % 7.5 % High 0.0-5.0 Eos % 10.2 % High 0.0-3.0 Baso % 1.2 % High 0.0-1.0 Immature Granulocyte % 0.2 % Normal 0-3.0 Nucleated Red Blood Cell % 0.0 % Normal 0-0 Neutrophils # 3.1 10 Normal 1.5-8.5 Lymph # 1.7 10 Normal 1.5-5.0 Colbert # 0.4 10 Normal 0.0-0.8 Eos # 0.6 10 High 0.0-0.5 Baso # 0.1 10 Normal 0.0-0.2 Hemoglobin A1c 04/26/2020 [facility] [address] [place] [address] [phone] Hemoglobin A1c 6.6 % Normal 10 Estimated Average Glucose 143 mg/dL High 60-110 Laboratory test finding 04/26/2020 [facility] [address] [place] [address] [phone] Ammonia 24 uMOL/L Normal <32 Comprehensive Metabolic Profil 04/26/[address] [address] [phone] Glucose, Fasting 214 mg/dL High 70-100 Blood [...] 1.0 Low 1.2-2.2 Laboratory test finding 04/21/2020 [facility] Outpatient T esting (Registration) [address] [place] [address] [phone] Platelet Count, Automated 162 10 Normal 150-45 0 Prothrombin Time/Inr 04/21/2020 [facility] Outpatient Test ing (Registration) [address] [place] [address] [phone] Prothrombin Time 14.5 seconds High 11.8-14.0 Inr 1.10 Normal 12 Laboratory test finding 04/21/2020 [facility] Outpatient T esting (Registration) [address] [place] [address] [phone] Partial Thromboplastin Time 35.6 seconds Normal 25 .0-38.4 Prothrombin Time/Inr 02/10/2020 [facility] enter [address] [place] [address] [phone] Prothrombin Time 14.3 seconds High 11.8-14.0 Inr 1.14 Normal 13 Laboratory test finding 02/10/[address] [address] [phone] RBC Folate <pending> Vitamin D 25-Hydroxy <pending> CBC With Differential 02/10/[address] [address] [phone] White Blood Count 6.0 10 Normal 4.0-10.0 [...] 36.0-66.0 Lymph % 30.5 % Normal 24.0-44.0 Colbert % 8.6 % High 0.0-5.0 Eos % 11.1 % High 0.0-3.0 Baso % 1.0 % Normal 0.0-1.0 Immature Granulocyte % 0.2 % Normal 0-3.0 Nucleated Red Blood Cell % 0.0 % Normal 0-0 Neutrophils # 2.9 10 Normal 1.5-8.5 Lymph # 1.8 10 Normal 1.5-5.0 Colbert # 0.5 10 Normal 0.0-0.8 Eos # 0.7 10 High 0.0-0.5 Baso # 0.1 10 Normal 0.0-0.2 Laboratory test finding 02/10/[address] [address] [phone] Ferritin <pending> Laboratory test finding 02/10/[address] [address] [phone] Ammonia <pending> CBC With Differential 01/23/2020 [facility] Outpatient [place] t[place] (Registration) [address] [place] [address] [phone] White Blood Count 5.2 10 Normal 4.0-10.0 [...] 36.0-66.0 Lymph % 26.1 % Normal 24.0-44.0 Colbert % 9.3 % High 0.0-5.0 Eos % 11.8 % High 0.0-3.0 Baso % 2.1 % High 0.0-1.0 Immature Granulocyte % 0.2 % Normal 0-3.0 Nucleated Red Blood Cell % 0.0 % Normal 0-0 Neutrophils # 2.6 10 Normal 1.5-8.5 Lymph # 1.4 10 Low 1.5-5.0 Colbert # 0.5 10 Normal 0.0-0.8 Eos # 0.6 10 High 0.0-0.5 Baso # 0.1 10 Normal 0.0-0.2 Laboratory test finding 01/23/2020 [facility] Outpatient T esting (Registration) [address] [place] [address] [phone] Ammonia 58 uMOL/L High <32 Comprehensive Metabolic Profil 01/23/2020 [facility] Outpa tient Testing (Registration) [address] [place] [address] [phone] Glucose, Fasting 161 mg/dL High 70-100 Blood Urea Nitrogen 14 mg/dL Normal 7-18 Creatinine For GFR 0.70 mg/dL Normal 0.55-1.30 Glomerular Filtration Rate > 60.0 Normal >45 1 4 Sodium Level 148 mEq/L High 136-145 Potassium [...] Ratio 0.8 Low 1.2-2.2 Lipid Panel 01/23/2020 [facility] Outpatient Testi ng (Registration) [address] [place] [address] [phone] Triglycerides Level 51 mg/dL Normal <150 Cholesterol Level 128 mg/dL Normal <200 HDL Cholesterol 62 mg/dL Normal >40 LDL Cholesterol 56 mg/dL Normal <100 Non-HDL-C 66 mg/dL Normal Cholesterol Risk Ratio 2.064 Normal <5 FT4&TSH Panel 01/23/2020 [facility] Outpatient Testi ng (Registration) [address] [place] [address] [phone] Thyroid Stimulating Hormone 2.460 uIU/ML Normal 0. 358-3.740 Free T4 0.71 ng/dL Low 0.76-1.46 Hemoglobin A1c 01/23/2020 [facility] Outpatient Testi ng (Registration) [address] [place] [address] [phone] Hemoglobin A1c 6.9 % Normal 15 Estimated Average Glucose 151 mg/dL High 60-110 1 Units are mL/min/1.73 m2 Chronic Kidney Disease Staging per NKF: Stage I & II GFR >=60 Normal to Mildly Decreased Stage III GFR 30-59 Moderately Decreased Stage IV GFR 15-29 Severely Decreased Stage V GFR <15 Very Little GFR Left ESRD GFR <15 on [employer] 2 REFERENCE RANGES: <=5.6% NORMAL 5.7-6.4% SUGGESTS [...] Little GFR Left ESRD GFR <15 on [employer] 5 Units are mL/min/1.73 m2 Chronic Kidney Disease Staging per NKF: Stage I & II GFR >=60 Normal to Mildly Decreased Stage III GFR 30-59 Moderately Decreased Stage IV GFR 15-29 Severely Decreased Stage V GFR <15 Very Little GFR Left ESRD GFR <15 on [employer] 6 THERAPUTIC HUMAN INR VALUES INDICATIONS NORMAL [...] Little GFR Left ESRD GFR <15 on [employer] 8 THE AFP ASSAY IS PERFORMED O N THE [employer] BY CHEMILUMINESCENCE AND SHOULD NOT BE COMPARED [...] Little GFR Left ESRD GFR <15 on [employer] 12 THERAPUTIC HUMAN INR VALUES INDICATIONS NORMAL [...] VALVES(HIGH RISK) 2.5-3.5 RECURRENT MYOCARDIAL INFARCTION 2.5-3.5 14 Units are mL/min/1.73 m2 Chronic Kidney Disease Staging per NKF: Stage I & II GFR >=60 Normal to Mildly Decreased Stage III GFR 30-59 Moderately Decreased Stage IV GFR 15-29 Severely Decreased Stage V GFR <15 Very Little GFR Left ESRD GFR <15 on [employer] 15 REFERENCE RANGES: 4.5-5.6% NORMAL 5.7-6.4% SUGGESTS IMPAIRED GLUCOSE META BOLISM >= 6.5% ABNORMAL Procedures Description No Information Available Medical Devices Description No Information Available Encounters Type Date Location Provider Dx Diagnosis Office Visit 07/02/2020 2:00p [facility] [place] Kumar Z01.818 Encounter for other preproce dural examination 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, NEC, right knee Office Visit 06/07/2020 9:20a [facility] [place] Ann L03.113 Cellulitis of right upper li mb Office Visit 05/01/2020 2:00p [facility] [place] Kumar I10 Essential (primary) hyperten elian Z98.84 Bariatric surgery status F33.1 Major depressive disorder, r ecurrent, moderate E11.9 Type 2 diabetes mellitus wit hout complications G47.33 Obstructive sleep apnea (jessenia lt) (pediatric) G93.41 Metabolic encephalopathy Office Visit 01/25/2020 9:00a [facility] Maggie Kerr D.OMir Z00.00 Encntr for general adult med ical exam w/o abnormal findings I10 Essential (primary) hyperten elian Z98.84 Bariatric surgery status F33.1 Major depressive disorder, r ecurrent, moderate E11.9 Type 2 diabetes mellitus wit hout complications G47.33 Obstructive sleep apnea (jessenia lt) (pediatric) G93.41 Metabolic encephalopathy K72.90 Hepatic failure, unspecified without coma 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 01/25/2020 G47.33 Obstructive sleep apnea (adult) (pediatric) Maggie Sharif D.O. 01/25/2020 G93.41 Metabolic encephalopathy Maggie Connell D.O. 01/25/2020 K72.90 Hepatic failure, unspecified wit hout coma Maggie Sharif D.O. 01/25/2020 Z79.82 hearing screener (current) use of aspir in Maggie Kerr D.O. 01/25/2020 Z79.899 Other agricultural systems specialist (current) drug t herapy Maggie Kerr D.O. 01/25/2020 K02.9 Dental caries, unspecified Maggie Kerr D.O. Plan of Treatment Future Appointment(s):* 07/31/2020 10:30 am - Maggie Kerr D.O. at [facility] 07/02/2020 - [place] Kumar* Z01.818 Encounter [...]
--- OUTSIDE RECORDS SUMMARY | 2020-09-07 14:26 | CCD | Continuity of Care Document ---
Author Author Steff ZUNIGA P.A. Organization Unknown Address [address] [place] [address], [facility] [address] [place] [address] Phone [phone] Care Team Providers Care Basket Turner Name Role Phone Maggie Kerr DO AUTM [phone] Problems Active Problems Provider Date Type [...] SIG Qnty Indications Ordering Provide r Date Bactroban 2% Ointment apply a pea sized [...] Available Vital Signs Date Vital Result Comment 06/13/2020 3:27pm Body Temperature 97.1 F 04/05/2020 9:22am Body Temperature 96.8 F Height 68 inches 5'8" Weight 213.00 lb BMI (Body Mass Index) 32.4 kg/m2 Results Test Acquired Date Facility Test Result H/L Range Note Comprehensive Metabolic Profil 06/24/2020 [facility] [address] [place] [address] (315)- - Glucose, Fasting 157 mg/dL High [...] 0.9 Low 1.2-2.2 Complete Blood Count 06/24/2020 [facility] entr [address] [place] [address] (315)- - White Blood Count 4.6 10 [...] % Normal 0-0 Laboratory test finding 06/[facility]/2020 [facility] [address] [place] [address] (315)- - Erythrocyte Sedimentation Rate 32 mm/hr High 0-30 Prothrombin Time/Inr 06/24/2020 [facility] entr [address] [place] [address] (315)- - Prothrombin Time 14.7 seconds High 12.5-14.3 Inr 1.12 Normal 2 Order 06/14/2020 [facility] [address] [facility] [address] [place] [address] H Injections <pending> Creatinine With GFR 05/31/2020 [facility] [address] [place] [address] (315)- - Creatinine For GFR 0.69 mg/dL Normal 0.55-1.30 Glomerular Filtration Rate > 60.0 Normal >45 3 Laboratory test finding 05/31/2020 [facility] [address] [place] [address] (315)- - Blood Urea Nitrogen 12 mg/dL Normal 7-18 Laboratory test finding 04/21/2020 [facility] [address] [place] [address] (315)- - Coronavirus 2019 Nasopharygeal This test was de <SEE NOTE> 4 Partial Thromboplastin Time 04/21/2020 [facility] Cent[facility] [address] [place] [address] (315)- - Prothrombin Time 14.5 seconds High 11.8-14.0 Inr 1.10 Normal 5 Partial Thromboplastin Time 35.6 seconds Normal 25.0-38.4 Laboratory test finding 04/21/2020 [facility] [address] [place] [address] (315)- - Platelet Count, Automated 162 10 Normal 150-450 Partial Thromboplastin Time <pending> CBC With Differential 04/20/2020 [facility] [address] [place] [address] (315)- - White Blood Count 10.8 10 [...] 36.0-66.0 Lymph % 9.3 % Low 24.0-44.0 [place] % 2.1 % Normal 0.0-5.0 Eos % 0.0 % Normal 0.0-3.0 Baso % 0.1 % Normal 0.0-1.0 Immature Granulocyte % 1.1 % Normal 0-3.0 Nucleated Red Blood Cell % 0.0 % Normal 0-0 Neutrophils # 9.4 10 High 1.5-8.5 Lymph # 1.0 10 Low 1.5-5.0 [place] # 0.2 10 Normal 0.0-0.8 Eos # 0.0 10 Normal 0.0-0.5 Baso # 0.0 10 Normal 0.0-0.2 Laboratory test finding 04/20/2020 [facility] [address] [place] [address] (315)- - Erythrocyte Sedimentation Rate 38 mm/hr High 0-30 Laboratory test finding 03/15/2020 [facility] [address] [place] [address] (315)- - Coronavirus 2019 Nasopharygeal Testing was perf <SEE NOTE> 7 Laboratory test finding 03/05/2020 [facility] [address] [place] [address] (315)- - Adrenal Antibodies See Separate Rep <SEE NOTE> Normal 8 Estradiol Sensitive LC/MS See Separate Rep <SEE NOTE> Normal 9 Testosterone Free & Total 03/05/2020 [facility] [address] [place] [address] (315)- - Testosterone Free (Direct) See Separate Rep <SEE NOTE> pg/mL Normal 10 Testosterone Total For T&D See Separate Rep <SEE NOTE> ng/dL Normal 11 Laboratory test finding 03/05/2020 [facility] [address] [place] [address] (315)- - 21 Hydroxylase Antibody SEE SEPARATE REP <SEE NOTE> Cadence l 12 1 Units are mL/min/1.73 m2 Chronic Kidney Disease Staging per NKF: Stage I & II GFR >=60 Normal to Mildly Decreased Stage III GFR 30-59 Moderately Decreased Stage IV GFR 15-29 Severely Decreased Stage V GFR <15 Very Little GFR Left ESRD GFR <15 on REPAIRER RECREATIONAL VEHICLE 2 THERAPUTIC HUMAN INR VALUES INDICATIONS NORMAL [...] Little GFR Left ESRD GFR <15 on REPAIRER RECREATIONAL VEHICLE 4 This test was developed and its performance characteristics determined by [employer] This test has not been FDA cleared [...] detected) result in this assay. Performed at: [address] [id number] [employer] Supervisor: Sheri Mcclellan MD, Phone: [phone] Not Detected 5 THERAPUTIC HUMAN INR VALUES [...] developed and its performance characteristics determined by [employer] ([employer]). This test has not been FDA cleared [...] detected) result in this assay. Performed at: [address] [id number] [employer] Supervisor: Sheri Mcclellan MD, Phone: [phone] Not Detected 8 See Separate Report Testing performed at reference lab . Report copy to follow on a separate form. 04/20/20 REF LAB#:[id number] See Separate Report 10 See Separate Report 11 See Separate Report 12 SEE SEPARATE REPORT Procedures Date Code Description Status 04/26/2020 82286 Moderate Sedation Se rvices; Same Phys Intl 15 Mins; PT >= 5 Years Completed 04/26/2020 59131 Epidurography Radiological Super vision & Interpretation Completed 04/26/2020 71007 Injec Anesthetic Age nt/Steroid Trans Epidural Lumb/Sacral Single Completed 04/11/2020 76417 X-Ray Knee Complete W/Obliques & Tunnel And/Or Standing Views Completed 04/11/2020 48553 X-Ray Knee Complete W/Obliques & Tunnel And/Or Standing Views Completed 04/11/2020 38707 X-Ray Knee Complete W/Obliques & Tunnel And/Or Standing Views Completed 03/19/2020 89450 Moderate Sedation Se rvices; Same Phys Intl 15 Mins; PT >= 5 Years Completed 03/19/2020 39992 Epidurography Radiological Super vision & Interpretation Completed 03/19/2020 53019 Injec Anesthetic Age nt/Steroid Trans Epidural Lumb/Sacral Single Completed 02/03/2020 Inject/Drain Joint/Bursa Major C ompleted Medical Devices Description No Information Available Encounters Type Date Location Provider Dx Diagnosis Office Visit 06/13/2020 3:[place]p [place] M51.37 Other intervertebral disc degeneration, lumbosacral region M51.27 Other intervertebral disc di splacement, lumbosacral region M47.27 Other spondylosis with radic ulopathy, lumbosacral region M48.07 Spinal stenosis, lumbosacral region M43.16 Spondylolisthesis, lumbar re gion M48.02 Spinal stenosis, cervical re gion M47.892 Other spondylosis, cervical region M50.31 Other cervical disc degenera tion, high cervical region Office Visit 05/14/2020 1:30p [place] M51.37 Other intervertebral disc degeneration, lumbosacral region M51.27 Other intervertebral disc di splacement, lumbosacral region M47.27 Other spondylosis with radic ulopathy, lumbosacral region M48.07 Spinal stenosis, lumbosacral region M43.16 Spondylolisthesis, lumbar re gion M48.02 Spinal stenosis, cervical re gion M47.892 Other spondylosis, cervical region M50.31 Other cervical disc degenera tion, high cervical region Office Visit 04/11/2020 9:15a [place] Twin Falcon MD M17.0 Bilateral primary osteoarthritis of knee Office Visit 04/05/2020 9:15a [place] M51.37 Other intervertebral disc degeneration, lumbosacral region M51.27 Other intervertebral disc di splacement, lumbosacral region M47.27 Other spondylosis with radic ulopathy, lumbosacral region M48.07 Spinal stenosis, lumbosacral region M43.16 Spondylolisthesis, lumbar re gion Office Visit 02/03/2020 11:15a [place] MD M17.0 Bilateral primary osteoarthritis of knee Assessments Date Code Description Provider 06/13/2020 M51.37 Other intervertebral disc degene ration, lumbosacral region [facility] 06/13/2020 M51.27 Other intervertebral disc displa cement, lumbosacral region [facility] 06/13/2020 M47.27 Other spondylosis with radiculop athy, lumbosacral region [facility] 06/13/2020 M48.07 Spinal stenosis, lumbosacral reg ion [facility] 06/13/2020 M43.16 Spondylolisthesis, lumbar region [facility] 06/13/2020 M48.02 Spinal stenosis, cervical region [facility] 06/13/2020 M47.892 Other spondylosis, cervical juan miguel on [facility] 06/13/2020 M50.31 Other cervical disc degeneration , high cervical region [facility] 05/14/2020 M51.37 Other intervertebral disc degene ration, lumbosacral region [facility] 05/14/2020 M51.27 Other intervertebral disc displa cement, lumbosacral region [facility] 05/14/2020 M47.27 Other spondylosis with radiculop athy, lumbosacral region [facility] 05/14/2020 M48.07 Spinal stenosis, lumbosacral reg ion [facility] 05/14/2020 M43.16 Spondylolisthesis, lumbar region [facility] 05/14/2020 M48.02 Spinal stenosis, cervical region [facility] 05/14/2020 M47.892 Other spondylosis, cervical juan miguel on [facility] 05/14/2020 M50.31 Other cervical disc degeneration , high cervical region [facility] 04/26/2020 M51.26 Other intervertebral disc displa cement, lumbar region Darian Darnell MD 04/26/2020 M48.061 Spinal stenosis, lum bar region without neurogenic claudication Darian Darnell MD 04/11/2020 M17.0 Bilateral primary osteoarthritis of knee Twin Falcon MD 04/05/2020 M51.37 Other intervertebral disc degene ration, lumbosacral region [facility] 04/05/2020 M51.27 Other intervertebral disc displa [...] 1:00 pm - Twin Falcon MD at [place] * 07/05/2020 9:30 am - Jammie Andrews at Surgery [facility] Inpatient * 07/05/2020 9:30 am - Twin Falcon MD at Surgery [facility] Inpatient 06/13/2020 - [place] Crocker* M51.37 Other intervertebral disc degeneration, lumbosacral region* Follow up:* post inj with [facility] * M51.27 Other intervertebral disc displacement, lumbosacral region * M47.27 Other spondylosis with radiculopathy, lumbosacral region * M48.07 Spinal stenosis, lumbosacral region * M43.16 Spondylolisthesis, lumbar region * M48.02 Spinal stenosis, cervical region * M47.892 Other spondylosis, cervical region * M50.31 Other cervical disc degeneration, high cervical region Functional Status Description No Information Available Mental Status Description No Information Available Referrals Refer to Reason for Referral Status Appt Date Darian Darnell MD SURGERY PER ANTOLIN AT [facility] FOR TOTAL RT KNEE(06154) TO SURGERY NT Created [address] [facility], [address] [place] [address] [phone] Darian Darnell MD [facility]L [facility]([id number], [id number], AN D [id number]) PER [facility] NO AUTH REQUIRED OT SCHEDULING NT Created [address] [place] [address] [phone] Darian Darnell MD [facility]([id number] [place] [id number]) PER [facility] NO AUTH REQUIRED TO SURGERY NT Created [address] [place] [address] [phone] Twin Falcon MD DME [id number] [facility] OPEN BACK X2 (LEFT AND RIGHT) NO AUTH REQUIRED PER CRISELDA Mcgee REF#[id number]. LM Created [address] [place] [address], [address] [address] [phone]
--- OUTSIDE RECORDS SUMMARY | 2020-09-07 14:26 | CCD | Continuity of Care Document ---
Author Author Steff ELKINS MD Organization Unknown Address [address] [place] [address], it e [address] [place] [address] Phone [phone] Care Team Providers Care Solar Manufacturer'S Representative Name Role Phone Maggie Kerr DO AUTM [phone] Problems Active Problems Provider Date Type [...] SIG Qnty Indications Ordering Provide r Date Hines 5-325mg Tablets take 1 tab by mouth [...] H/L Range Note Comprehensive Metabolic Profil 06/24/2020 [facility] [address] [place] [address] (315)- - Glucose, Fasting 157 mg/dL High [...] 0.9 Low 1.2-2.2 Complete Blood Count 06/24/2020 [facility] entr [address] [place] [address] (315)- - White Blood Count 4.6 10 [...] % Normal 0-0 Laboratory test finding 06/24/2020 [facility] Cent[facility] [address] [place] [address] (315)- - Erythrocyte Sedimentation Rate 32 mm/hr High 0-30 Prothrombin Time/Inr 06/24/2020 [facility] entr [address] [place] [address] (315)- - Prothrombin Time 14.7 seconds High 12.5-14.3 Inr 1.12 Normal 2 Order 06/14/2020 [facility] [address] [facility] [address] [place] [address] HH Injections <pending> Creatinine With GFR 05/31/2020 [facility] [address] [place] [address] (315)- - Creatinine For GFR 0.69 mg/dL Normal 0.55-1.30 Glomerular Filtration Rate > 60.0 Normal >45 3 Laboratory test finding 05/31/2020 [facility] [address] [place] [address] (315)- - Blood Urea Nitrogen 12 mg/dL Normal 7-18 Laboratory test finding 04/21/2020 [facility] [address] [place] [address] (315)- - Coronavirus 2019 Nasopharygeal This test was de <SEE NOTE> 4 Partial Thromboplastin Time 04/21/2020 [facility] Cent[facility] [address] [place] [address] (315)- - Prothrombin Time 14.5 seconds High 11.8-14.0 Inr 1.10 Normal 5 Partial Thromboplastin Time 35.6 seconds Normal 25.0-38.4 Laboratory test finding 04/21/2020 [facility] [address] [place] [address] (315)- - Platelet Count, Automated 162 10 Normal 150-450 Partial Thromboplastin Time <pending> CBC With Differential 04/20/2020 [facility] [address] [place] [address] (315)- - White Blood Count 10.8 10 [...] 36.0-66.0 Lymph % 9.3 % Low 24.0-44.0 [place] % 2.1 % Normal 0.0-5.0 Eos % 0.0 % Normal 0.0-3.0 Baso % 0.1 % Normal 0.0-1.0 Immature Granulocyte % 1.1 % Normal 0-3.0 Nucleated Red Blood Cell % 0.0 % Normal 0-0 Neutrophils # 9.4 10 High 1.5-8.5 Lymph # 1.0 10 Low 1.5-5.0 [place] # 0.2 10 Normal 0.0-0.8 Eos # 0.0 10 Normal 0.0-0.5 Baso # 0.0 10 Normal 0.0-0.2 Laboratory test finding 04/20/2020 [facility] [address] [place] [address] (315)- - Erythrocyte Sedimentation Rate 38 mm/hr High 0-30 Laboratory test finding 03/15/2020 [facility] [address] [place] [address] (315)- - Coronavirus 2019 Nasopharygeal Testing was perf <SEE NOTE> 7 Laboratory test finding 03/05/2020 [facility] [address] [place] [address] (315)- - Adrenal Antibodies See Separate Rep <SEE NOTE> Normal 8 Estradiol Sensitive LC/MS See Separate Rep <SEE NOTE> Normal 9 Testosterone Free & Total 03/05/2020 [facility] [address] [place] [address] (315)- - Testosterone Free (Direct) See Separate Rep <SEE NOTE> pg/mL Normal 10 Testosterone Total For T&D See Separate Rep <SEE NOTE> ng/dL Normal 11 Laboratory test finding 03/05/2020 [facility] [address] [place] [address] (315)- - 21 Hydroxylase Antibody SEE SEPARATE REP <SEE NOTE> Cadence l 12 1 Units are mL/min/1.73 m2 Chronic Kidney Disease Staging per NKF: Stage I & II GFR >=60 Normal to Mildly Decreased Stage III GFR 30-59 Moderately Decreased Stage IV GFR 15-29 Severely Decreased Stage V GFR <15 Very Little GFR Left ESRD GFR <15 on FUR SCRAPER 2 THERAPUTIC HUMAN INR VALUES INDICATIONS NORMAL [...] Little GFR Left ESRD GFR <15 on FUR SCRAPER 4 This test was developed and its performance characteristics determined by [employer]. This test has not been FDA cleared [...] result in this assay. Performed at: - [facility] [id number] Abstract Manager: Sheri Mcclellan MD, Phone: [phone] Not Detected 5 THERAPUTIC HUMAN INR VALUES [...] developed and its performance characteristics determined by [employer]. This test has not been FDA cleared [...] detected) result in this assay. Performed at: [address] [id number] Abstract Manager: Sheri Mcclellan MD, Phone: [phone] Not Detected 8 See Separate Report Testing performed at reference lab . Report copy to follow on a separate form. 04/20/20 REF LAB#:[id number] See Separate Report 10 See Separate Report 11 See Separate Report 12 SEE SEPARATE REPORT Procedures Date Code Description Status 07/05/2020 18031 Arthroplasty "Total Knee" Medial & Lateral W/ Or W/O Patella Resu Completed 07/05/2020 76133 Arthroplasty "Total Knee" Medial & Lateral W/ Or W/O Patella Resu Completed 04/26/2020 73524 Moderate Sedation Se rvices; Same Phys Intl 15 Mins; PT >= 5 Years Completed 04/26/2020 28078 Epidurography Radiological Super vision & Interpretation Completed 04/26/2020 84276 Injec Anesthetic Age nt/Steroid Trans Epidural Lumb/Sacral Single Completed 04/11/2020 29896 X-Ray Knee Complete W/Obliques & Tunnel And/Or Standing Views Completed 04/11/2020 07966 X-Ray Knee Complete W/Obliques & Tunnel And/Or Standing Views Completed 04/11/2020 57413 X-Ray Knee Complete W/Obliques & Tunnel And/Or Standing Views Completed 03/19/2020 03713 Moderate Sedation Se rvices; Same Phys Intl 15 Mins; PT >= 5 Years Completed 03/19/2020 77321 Epidurography Radiological Super vision & Interpretation Completed 03/19/2020 98396 Injec Anesthetic Age nt/Steroid Trans Epidural Lumb/Sacral Single Completed 02/03/2020 28533 Inject/Drain Joint/Bursa Major C ompleted Medical Devices Description No Information Available Encounters Type Date Location Provider Dx Diagnosis Office Visit 07/18/2020 1:00p [place] MD Z47.1 Aftercare following joint replacement surgery Z96.651 Presence of right artificial knee joint M79.661 Pain in right lower leg Office Visit 07/02/2020 10:45a [place] Willis, P.A. Z01.818 Encounter for other preprocedural examination M17.11 Unilateral primary osteoarth ritis, right knee Office Visit 06/13/2020 3:00p [place] M51.37 Other intervertebral disc degeneration, lumbosacral region M51.27 Other intervertebral disc di splacement, lumbosacral region M47.27 Other spondylosis with radic ulopathy, lumbosacral region M48.07 Spinal stenosis, lumbosacral region M43.16 Spondylolisthesis, lumbar re gion M48.02 Spinal stenosis, cervical re gion M47.892 Other spondylosis, cervical region M50.31 Other cervical disc degenera tion, high cervical region Office Visit 05/14/2020 1:30p [place] M51.37 Other intervertebral disc degeneration, lumbosacral [...] [place] 06/13/2020 M48.02 Spinal stenosis, cervical region [facility] [place] 06/13/2020 M47.892 Other spondylosis, cervical juan miguel on [facility] [place] 06/13/2020 M50.31 Other cervical disc degeneration , high cervical region [facility] [place] 05/14/2020 M51.37 Other intervertebral disc degene ration, lumbosacral region [facility] [place] 05/14/2020 M51.27 Other intervertebral disc displa cement, lumbosacral region [facility] [place] 05/14/2020 M47.27 Other spondylosis with radiculop athy, lumbosacral region [facility] 05/14/2020 M48.07 Spinal stenosis, lumbosacral reg ion [facility] [place] 05/14/2020 M43.16 Spondylolisthesis, lumbar region [facility] [place] 05/14/2020 M48.02 Spinal stenosis, cervical region [facility] [place] 05/14/2020 M47.892 Other spondylosis, cervical juan miguel on [facility] [place] 05/14/2020 M50.31 Other cervical disc degeneration , high cervical region [facility] 04/26/2020 M51.26 Other intervertebral disc displa [...] knee Twin Elkins MD Plan of Treatment 07/18/2020 - Twin Elkins MD* Z47.1 Aftercare following joint replacement surgery* New Medication:* Hines 5-325 mg - take 1 tab by [...] Darian Darnell MD SURGERY PER ANTOLIN AT [facility] FOR TOTAL RT KNEE(26649) TO SURGERY NT Created [address] [place] [address], [address] [address] [phone] Darian Darnell MD JL INJ'S([id number], [id number], AN D [id number]) PER [facility] NO AUTH REQUIRED OT SCHEDULING NT Created [address] [place] [address], [address] [address] [phone] Darian Darnell MD [facility]([id number] [place] [id number]) [address] [facility] NO AUTH REQUIRED TO SURGERY NT Created [address] [place] [address], [address] [place] [address] [phone] Twin Elkins MD [facility] L1833 [employer] H OPEN BACK X2 (LEFT AND RIGHT) NO AUTH REQUIRED PER CRISELDA Mcgee REF#[id number]. LM Created [address] [facility], [address] [place] [address] [phone]
--- OUTSIDE RECORDS SUMMARY | 2020-09-07 14:27 | CCD | Continuity of Care Document ---
Author Organization Unknown Address Unknown Phone Unavailable Care Team Providers Care Ct Scan Technologist Name Role Phone Maggie Kerr D.O. AUTM Problems Active Problems Provider Date Essential hypertension [...] Maggie Kerr D.O. Onset: 2016 Insomnia Maggie Krer D.O. Onset: 2016 Type II diabetes mellitus [...] Use Denies Drug Use Smoking Status Reviewed: 05/01/20 Patient is a former smoker Exercise Type/Frequency Does not exercise Sun Exposure Uses sunscreen Seat Belt/Car Seat Always uses seat belt Allergies, Adverse Reactions, Alerts Active Allergies Reaction Severity Comments Date Gabapentin Increases Ammonia Levels 10/2019 Inactive Allergies NKDA 05/28/2017 Medications Active Medications SIG Qnty Indications Ordering Provide r Date Bactroban 2% Cream apply right armevery 12 hours for seven days 30gm L03.113 Kely NegronOMir 06/07/2020 Diclofenac Sodium 1% Gel Apply 1 Gram [...] at bedtime as needed for pain istop [id number] 30tabs M25.511 Kely NegronOMir 03/18/2019 Bupropion Hydrochloride ER (XL) 300mg Tablets ER 24HR Take One Tablet By Mouth Every Morning 30tabs F33.1 Kely GallegoOMir 03/17/2019 Triamcinolone Acetonide 0.1% Cream Apply To Affected Area(S) On Lower Leg And Left Hand Two Times A Day For 7 Days Then as Needed For Flare Ups 80units Z68.37 Kely Negron O. 11/08/2018 Atenolol 25mg Tablets take one tablet by mouth every day 30tabs Bella Negron.O. 11/09 Spironolactone 25mg Tablets Take One Tablet By Mouth Every Day 30tabs Kely NegronO. Xifaxan 550mg Tablets one tablet by mouth twice per day Unknown Propranolol HCL ER 60mg Caps ER 24HR 90caps Bella Negron.O. Dicyclomine HCL 10mg Capsules 1-2 tablets every [...] Shampoo use twice weekly as shampoo Unknown Citracal Plus Tablets 1 b y mouth [...] as directed Unknown BD Ultra-Fine Micro Pen [place] 6mm X 32 G 32G X 6 mm Misc Use twice a day with lantus Unknown Cyclobenzaprine HCL 10mg Tablets Take One Tablet By Mouth Three Times A Day as Needed (Maximum Daily Dose = 3) 270tabs Bella Negron.OMir Medications Administered in Office Medication SIG Qnty Indications Ordering Provider Date Immunization Administration Single Or Co mbination Injection Maggie Kerr D .O. 07/02/2017 Immunizations CPT Code Status Date Vaccine Lot # U-Flu Given 05/26/2019 Influenza,Unspecified [id number] Given 07/02/2017 Influenza Vaccin e Quadrivalent Preser/Antibiotic Free Im Use [id number] Vital Signs Date Vital Result Comment 06/07/2020 9:42am BP Systolic 128 mmHg BP Diastolic 78 mmHg Height 66.4 inches 5'6.40" Weight 221.12 lb BMI (Body Mass Index) 35.3 kg/m2 Heart Rate 65 /min Respiratory Rate 16 /min Body Temperature 97.2 F O2 % BldC Oximetry 98 % [place] Body Weight 130 lb 05/01/2020 2:14pm BP Systolic 122 mmHg BP Diastolic 74 mmHg Height 66.4 inches 5'6.40" Weight 211.12 lb BMI (Body Mass Index) 33.7 kg/m2 Heart Rate 63 /min Respiratory Rate 16 /min Body Temperature 97.6 F O2 % BldC Oximetry 98 % [place] Body Weight 130 lb Results Test Acquired Date Facility Test Result H/L Range Note Comprehensive Metabolic Profil 06/24/2020 [facility] Outpa tient Testing (Registration) [address] [place] [address] [phone] Glucose, Fasting 157 mg/dL High 70-100 Blood [...] 0.9 Low 1.2-2.2 Complete Blood Count 06/24/2020 [facility] Outpatient Test ing (Registration) [address] [place] [address] [phone] White Blood Count 4.6 10 Normal 4.0-10.0 [...] % Normal 0-0 Laboratory test finding 06/24/2020 [facility] Outpatient T esting (Registration) [address] [place] [address] [phone] Erythrocyte Sedimentation Rate 32 mm/hr High 0 -30 Prothrombin Time/Inr 06/24/2020 [facility] Outpatient Test ing (Registration) [address] [place] [address] [phone] Prothrombin Time 14.7 seconds High 12.5-14.3 Inr 1.12 Normal 2 Laboratory test finding 05/31/2020 [facility] Outpatient T esting (Registration) [address] [place] [address] [phone] Blood Urea Nitrogen 12 mg/dL Normal 7-18 Creatinine With GFR 05/31/2020 [facility] Outpatient Testi ng (Registration) [address] [place] [address] [phone] Creatinine For GFR 0.69 mg/dL Normal 0.55-1.30 Glomerular Filtration Rate > 60.0 Normal >45 3 Complete Blood Count 05/31/2020 [facility] Outpatient Test ing (Registration) [address] [place], [place] [id number] [phone] White Blood Count 6.2 10 Normal 4.0-10.0 [...] 0.0 % Normal 0-0 Prothrombin Time/Inr 05/31/2020 [facility] Outpatient Test ing (Registration) [address] [place] [address] [phone] Prothrombin Time 13.7 seconds Normal 12.5-14.3 Inr 1.03 Normal 4 Comprehensive Metabolic Profil 05/31/2020 [facility] Outpa tient Testing (Registration) [address] [place] [address] [phone] Glucose, Fasting 116 mg/dL High 70-100 Blood [...] 0.8 Low 1.2-2.2 Laboratory test finding 05/31/2020 [facility] Outpatient T jerrying (Registration) [address] [place] [address] [phone] Alpha Fetoprotein Tumor Quant 3.8 NG/ML Normal <8 .1 6 Comprehensive Metabolic Profil 04/26/[address] [address] [phone] Glucose, Fasting 214 mg/dL High 70-100 Blood [...] 1.0 Low 1.2-2.2 Laboratory test finding 04/26/[address] [address] [phone] Ammonia 24 uMOL/L Normal <32 Hemoglobin A1c 04/26/2020 [facility] nter [address] [place] [address] [phone] Hemoglobin A1c 6.6 % Normal 8 Estimated Average Glucose 143 mg/dL High 60-110 CBC With Differential 04/26/[address] [address] [phone] White Blood Count 5.9 10 Normal 4.0-10.0 [...] 36.0-66.0 Lymph % 28.8 % Normal 24.0-44.0 [place] % 7.5 % High 0.0-5.0 Eos % 10.2 % High 0.0-3.0 Baso % 1.2 % High 0.0-1.0 Immature Granulocyte % 0.2 % Normal 0-3.0 Nucleated Red Blood Cell % 0.0 % Normal 0-0 Neutrophils # 3.1 10 Normal 1.5-8.5 Lymph # 1.7 10 Normal 1.5-5.0 [place] # 0.4 10 Normal 0.0-0.8 Eos # 0.6 10 High 0.0-0.5 Baso # 0.1 10 Normal 0.0-0.2 Laboratory test finding 04/26/2020 [facility] [address] [place] [address] [phone] Total 25(Oh) Vitamin D 37.2 NG/ML Normal 30.0-100. 0 Ferritin 30 NG/ML Normal 8-252 Iron (Fe) 124 g/dL Normal 50-170 Vitamin B12 Level 1823 pg/mL High 247-911 9 Laboratory test finding 04/21/2020 [facility] Outpatient T esting (Registration) [address] [place] [address] [phone] Partial Thromboplastin Time 35.6 seconds Normal 25 .0-38.4 Prothrombin Time/Inr 04/21/2020 [facility] Outpatient Test ing (Registration) [address] [place] [address] [phone] Prothrombin Time 14.5 seconds High 11.8-14.0 Inr 1.10 Normal 10 Laboratory test finding 04/21/2020 [facility] Outpatient T esting (Registration) [address] [place] [address] [phone] Platelet Count, Automated 162 10 Normal 150-45 0 Laboratory test finding 02/10/[address] [address] [phone] Ammonia <pending> Laboratory test finding 02/10/[address] [address] [phone] Ferritin <pending> CBC With Differential 02/10/[address] [address] [phone] White Blood Count 6.0 10 Normal 4.0-10.0 [...] 36.0-66.0 Lymph % 30.5 % Normal 24.0-44.0 [place] % 8.6 % High 0.0-5.0 Eos % 11.1 % High 0.0-3.0 Baso % 1.0 % Normal 0.0-1.0 Immature Granulocyte % 0.2 % Normal 0-3.0 Nucleated Red Blood Cell % 0.0 % Normal 0-0 Neutrophils # 2.9 10 Normal 1.5-8.5 Lymph # 1.8 10 Normal 1.5-5.0 [place] # 0.5 10 Normal 0.0-0.8 Eos # 0.7 10 High 0.0-0.5 Baso # 0.1 10 Normal 0.0-0.2 Laboratory test finding 02/10/[address] [address] [phone] RBC Folate <pending> Vitamin D 25-Hydroxy <pending> Prothrombin Time/Inr 02/10/2020 [facility] enter [address] [place] [address] [phone] Prothrombin Time 14.3 seconds High 11.8-14.0 Inr 1.14 Normal 11 CBC With Differential 01/23/2020 [facility] Outpatient Gill ting (Registration) [address] [place] [address] [phone] White Blood Count 5.2 10 Normal 4.0-10.0 [...] 36.0-66.0 Lymph % 26.1 % Normal 24.0-44.0 [place] % 9.3 % High 0.0-5.0 Eos % 11.8 % High 0.0-3.0 Baso % 2.1 % High 0.0-1.0 Immature Granulocyte % 0.2 % Normal 0-3.0 Nucleated Red Blood Cell % 0.0 % Normal 0-0 Neutrophils # 2.6 10 Normal 1.5-8.5 Lymph # 1.4 10 Low 1.5-5.0 [place] # 0.5 10 Normal 0.0-0.8 Eos # 0.6 10 High 0.0-0.5 Baso # 0.1 10 Normal 0.0-0.2 Laboratory test finding 01/23/2020 [facility] Outpatient T esting (Registration) [address] [place] [address] [phone] Ammonia 58 uMOL/L High <32 Comprehensive Metabolic Profil 01/23/2020 [facility] Outpa tient Testing (Registration) [address] [place] [address] [phone] Glucose, Fasting 161 mg/dL High 70-100 Blood [...] Ratio 0.8 Low 1.2-2.2 Lipid Panel 01/23/2020 [facility] Outpatient Testi ng (Registration) [address] [place] [address] [phone] Triglycerides Level 51 mg/dL Normal <150 Cholesterol Level 128 mg/dL Normal <200 HDL Cholesterol 62 mg/dL Normal >40 LDL Cholesterol 56 mg/dL Normal <100 Non-HDL-C 66 mg/dL Normal Cholesterol Risk Ratio 2.064 Normal <5 FT4&TSH Panel 01/23/2020 [facility] Outpatient Testi ng (Registration) [address] [place] [address] [phone] Thyroid Stimulating Hormone 2.460 uIU/ML Normal 0. 358-3.740 Free T4 0.71 ng/dL Low 0.76-1.46 Hemoglobin A1c 01/23/2020 [facility] Outpatient Testi ng (Registration) [address] [place] [address] [phone] Hemoglobin A1c 6.9 % Normal 13 Estimated Average Glucose 151 mg/dL High 60-110 1 Units are mL/min/1.73 m2 Chronic Kidney Disease Staging per NKF: Stage I & II GFR >=60 Normal to Mildly Decreased Stage III GFR 30-59 Moderately Decreased Stage IV GFR 15-29 Severely Decreased Stage V GFR <15 Very Little GFR Left ESRD GFR <15 on PEDIATRIC OCCUPATIONAL THERAPIST 2 THERAPUTIC HUMAN INR VALUES INDICATIONS NORMAL [...] Little GFR Left ESRD GFR <15 on PEDIATRIC OCCUPATIONAL THERAPIST 4 THERAPUTIC HUMAN INR VALUES INDICATIONS NORMAL [...] Little GFR Left ESRD GFR <15 on PEDIATRIC OCCUPATIONAL THERAPIST 6 THE AFP ASSAY IS PERFORMED O N THE [employer] BY CHEMILUMINESCENCE AND SHOULD NOT BE COMPARED [...] Little GFR Left ESRD GFR <15 on PEDIATRIC OCCUPATIONAL THERAPIST 8 REFERENCE RANGES: <=5.6% NORMAL 5.7-6.4% SUGGESTS [...] Little GFR Left ESRD GFR <15 on PEDIATRIC OCCUPATIONAL THERAPIST 13 REFERENCE RANGES: 4.5-5.6% NORMAL 5.7-6.4% SUGGESTS IMPAIRED GLUCOSE META BOLISM >= 6.5% ABNORMAL Procedures Description No Information Available Medical Devices Description No Information Available Encounters Type Date Location Provider Dx Diagnosis Office Visit 06/07/2020 9:20a [facility] [place] Ann L03.113 Cellulitis of right upper li mb Office Visit 05/01/2020 2:00p [facility] [place] Kumar I10 Essential (primary) hyperten elian Z98.84 Bariatric surgery status F33.1 Major depressive disorder, r ecurrent, moderate E11.9 Type 2 diabetes mellitus wit hout complications G47.33 Obstructive sleep apnea (jessenia lt) (pediatric) G93.41 Metabolic encephalopathy Office Visit 01/25/2020 9:00a [facility] Maggie Kerr D.O. 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 01/25/2020 Z98.84 Bariatric surgery status Maggie Connell D.O. 01/25/2020 F33.1 Major depressive disorder, recur rent, moderate Maggie Sharif, D.O. 01/25/2020 E11.9 Type 2 diabetes mellitus without complications Maggie Sharif D.O. 01/25/2020 G47.33 Obstructive sleep apnea (adult) (pediatric) Maggie Sharif D.O. 01/25/2020 G93.41 Metabolic encephalopathy Maggie Connell, D.O. 01/25/2020 K72.90 Hepatic failure, unspecified wit hout coma Maggie Sharif D.O. 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 01/25/2020 Z79.899 Other shelter (current) drug t herapy Maggie Kerr D.O. 01/25/2020 K02.9 Dental caries, unspecified Maggie Kerr D.O. Plan of Treatment Future Appointment(s):* 07/31/2020 10:30 am - Maggie Kerr D.O. at [facility] Functional Status Description No Information Available Mental Status Description No Information Available Referrals Description No Information Available
--- OUTSIDE RECORDS SUMMARY | 2020-09-07 14:27 | CCD | Continuity of Care Document ---
Author Organization Unknown Address Unknown Phone Unavailable Care Team Providers Care Dipper And Drier Name Role Phone Maggie Kerr D.O. AUTM [...] at bedtime as needed for pain istop [id number] 30tabs M25.511 Kely NegronOMir 03/18/2019 Bupropion Hydrochloride [...] as directed Unknown BD Ultra-Fine Micro Pen [place] 6mm X 32 G 32G X 6 [...] Vaccine Lot # U-Flu Given 05/26/2019 Influenza,Unspecified [id number] Given 07/02/2017 Influenza Vaccin e Quadrivalent Preser/Antibiotic Free Im Use [id number] Vital Signs Date Vital Result Comment 06/07/2020 9:42am BP Systolic 128 mmHg BP Diastolic 78 mmHg Height 66.4 inches 5'6.40" Weight 221.12 lb BMI (Body Mass Index) 35.3 kg/m2 Heart Rate 65 /min Respiratory Rate 16 /min Body Temperature 97.2 F O2 % BldC Oximetry 98 % [place] Body Weight 130 lb 05/01/2020 2:14pm BP Systolic 122 mmHg BP Diastolic 74 mmHg Height 66.4 inches 5'6.40" Weight 211.12 lb BMI (Body Mass Index) 33.7 kg/m2 Heart Rate 63 /min Respiratory Rate 16 /min Body Temperature 97.6 F O2 % BldC Oximetry 98 % [place] Body Weight 130 lb Results Test Acquired Date Facility Test Result H/L Range Note Comprehensive Metabolic Profil 06/24/2020 [facility] Outpa tient Testing (Registration) [address] [place] [address] [phone] Glucose, Fasting 157 mg/dL High 70-100 Blood [...] 0.9 Low 1.2-2.2 Complete Blood Count 06/24/2020 [facility] Outpatient Test ing (Registration) [address] [place] [address] [phone] White Blood Count 4.6 10 Normal 4.0-10.0 [...] % Normal 0-0 Laboratory test finding 06/24/2020 [facility] Outpatient T esting (Registration) [address] [place] [address] [phone] Erythrocyte Sedimentation Rate 32 mm/hr High 0 -30 Prothrombin Time/Inr 06/24/2020 [facility] Outpatient Test ing (Registration) [address] [place] [address] [phone] Prothrombin Time 14.7 seconds High 12.5-14.3 Inr 1.12 Normal 2 Laboratory test finding 05/31/2020 [facility] Outpatient T esting (Registration) [address] [place] [address] [phone] Blood Urea Nitrogen 12 mg/dL Normal 7-18 Creatinine With GFR 05/31/2020 [facility] Outpatient Testi ng (Registration) [address] [place] [address] [phone] Creatinine For GFR 0.69 mg/dL Normal 0.55-1.30 Glomerular Filtration Rate > 60.0 Normal >45 3 Complete Blood Count 05/31/2020 [facility] Outpatient Test ing (Registration) [address] [place], [place] 1483678 [phone] White Blood Count 6.2 10 Normal 4.0-10.0 [...] 0.0 % Normal 0-0 Prothrombin Time/Inr 05/31/2020 [facility] Outpatient Test ing (Registration) [address] [place] [address] [phone] Prothrombin Time 13.7 seconds Normal 12.5-14.3 Inr 1.03 Normal 4 Comprehensive Metabolic Profil 05/31/2020 [facility] Outpa tient Testing (Registration) [address] [place] [address] [phone] Glucose, Fasting 116 mg/dL High 70-100 Blood [...] 0.8 Low 1.2-2.2 Laboratory test finding 05/31/2020 [facility] Outpatient T jerrying (Registration) [address] [place] [address] [phone] Alpha Fetoprotein Tumor Quant 3.8 NG/ML Normal <8 .1 6 Comprehensive Metabolic Profil 04/26/[address] [address] [phone] Glucose, Fasting 214 mg/dL High 70-100 Blood [...] 1.0 Low 1.2-2.2 Laboratory test finding 04/26/[address] [address] [phone] Ammonia 24 uMOL/L Normal <32 Hemoglobin A1c 04/26/2020 [facility] nter [address] [place] [address] [phone] Hemoglobin A1c 6.6 % Normal 8 Estimated Average Glucose 143 mg/dL High 60-110 CBC With Differential 04/26/[address] [address] [phone] White Blood Count 5.9 10 Normal 4.0-10.0 [...] 36.0-66.0 Lymph % 28.8 % Normal 24.0-44.0 [place] % 7.5 % High 0.0-5.0 Eos % 10.2 % High 0.0-3.0 Baso % 1.2 % High 0.0-1.0 Immature Granulocyte % 0.2 % Normal 0-3.0 Nucleated Red Blood Cell % 0.0 % Normal 0-0 Neutrophils # 3.1 10 Normal 1.5-8.5 Lymph # 1.7 10 Normal 1.5-5.0 Rogers # 0.4 10 Normal 0.0-0.8 Eos # 0.6 10 High 0.0-0.5 Baso # 0.1 10 Normal 0.0-0.2 Laboratory test finding 04/26/2020 [facility] [address] [place] [address] [phone] Total 25(Oh) Vitamin D 37.2 NG/ML Normal 30.0-100. 0 Ferritin 30 NG/ML Normal 8-252 Iron (Fe) 124 g/dL Normal 50-170 Vitamin B12 Level 1823 pg/mL High 247-911 9 Laboratory test finding 04/21/2020 [facility] Outpatient T esting (Registration) [address] [place] [address] [phone] Partial Thromboplastin Time 35.6 seconds Normal 25 .0-38.4 Prothrombin Time/Inr 04/21/2020 [facility] Outpatient Test ing (Registration) [address] [place] [address] [phone] Prothrombin Time 14.5 seconds High 11.8-14.0 Inr 1.10 Normal 10 Laboratory test finding 04/21/2020 [facility] Outpatient T esting (Registration) [address] [place] [address] [phone] Platelet Count, Automated 162 10 Normal 150-45 0 Laboratory test finding 02/10/[address] [address] [phone] Ammonia <pending> Laboratory test finding 02/10/[address] [address] [phone] Ferritin <pending> CBC With Differential 02/10/[address] [address] [phone] White Blood Count 6.0 10 Normal 4.0-10.0 [...] 36.0-66.0 Lymph % 30.5 % Normal 24.0-44.0 [place] % 8.6 % High 0.0-5.0 Eos % 11.1 % High 0.0-3.0 Baso % 1.0 % Normal 0.0-1.0 Immature Granulocyte % 0.2 % Normal 0-3.0 Nucleated Red Blood Cell % 0.0 % Normal 0-0 Neutrophils # 2.9 10 Normal 1.5-8.5 Lymph # 1.8 10 Normal 1.5-5.0 Rogers # 0.5 10 Normal 0.0-0.8 Eos # 0.7 10 High 0.0-0.5 Baso # 0.1 10 Normal 0.0-0.2 Laboratory test finding 02/10/[address] [address] [phone] RBC Folate <pending> Vitamin D 25-Hydroxy <pending> Prothrombin Time/Inr 02/10/2020 [facility] enter [address] [place] [address] [phone] Prothrombin Time 14.3 seconds High 11.8-14.0 Inr 1.14 Normal 11 CBC With Differential 01/23/2020 [facility] Outpatient Gill ting (Registration) [address] [place] [address] [phone] White Blood Count 5.2 10 Normal 4.0-10.0 [...] 36.0-66.0 Lymph % 26.1 % Normal 24.0-44.0 [place] % 9.3 % High 0.0-5.0 Eos % 11.8 % High 0.0-3.0 Baso % 2.1 % High 0.0-1.0 Immature Granulocyte % 0.2 % Normal 0-3.0 Nucleated Red Blood Cell % 0.0 % Normal 0-0 Neutrophils # 2.6 10 Normal 1.5-8.5 Lymph # 1.4 10 Low 1.5-5.0 Rogers # 0.5 10 Normal 0.0-0.8 Eos # 0.6 10 High 0.0-0.5 Baso # 0.1 10 Normal 0.0-0.2 Laboratory test finding 01/23/2020 [facility] Outpatient T esting (Registration) [address] [place] [address] [phone] Ammonia 58 uMOL/L High <32 Comprehensive Metabolic Profil 01/23/2020 [facility] Outpa tient Testing (Registration) [address] [place] [address] [phone] Glucose, Fasting 161 mg/dL High 70-100 Blood [...] Ratio 0.8 Low 1.2-2.2 Lipid Panel 01/23/2020 [facility] Outpatient Testi ng (Registration) [address] [place] [address] [phone] Triglycerides Level 51 mg/dL Normal <150 Cholesterol Level 128 mg/dL Normal <200 HDL Cholesterol 62 mg/dL Normal >40 LDL Cholesterol 56 mg/dL Normal <100 Non-HDL-C 66 mg/dL Normal Cholesterol Risk Ratio 2.064 Normal <5 FT4&TSH Panel 01/23/2020 [facility] Outpatient Testi ng (Registration) [address] [place] [address] [phone] Thyroid Stimulating Hormone 2.460 uIU/ML Normal 0. 358-3.740 Free T4 0.71 ng/dL Low 0.76-1.46 Hemoglobin A1c 01/23/2020 [facility] Outpatient Testi ng (Registration) [address] [place] [address] [phone] Hemoglobin A1c 6.9 % Normal 13 Estimated Average Glucose 151 mg/dL High 60-110 1 Units are mL/min/1.73 m2 Chronic Kidney Disease Staging per NKF: Stage I & II GFR >=60 Normal to Mildly Decreased Stage III GFR 30-59 Moderately Decreased Stage IV GFR 15-29 Severely Decreased Stage V GFR <15 Very Little GFR Left ESRD GFR <15 on SWAGING MACHINE OPERATOR 2 THERAPUTIC HUMAN INR VALUES INDICATIONS [...] Little GFR Left ESRD GFR <15 on SWAGING MACHINE OPERATOR 4 THERAPUTIC HUMAN INR VALUES INDICATIONS NORMAL [...] Little GFR Left ESRD GFR <15 on SWAGING MACHINE OPERATOR 6 THE AFP ASSAY IS PERFORMED O N THE [employer] BY CHEMILUMINESCENCE AND SHOULD NOT BE COMPARED [...] Little GFR Left ESRD GFR <15 on SWAGING MACHINE OPERATOR 8 REFERENCE RANGES: <=5.6% NORMAL 5.7-6.4% SUGGESTS [...] Little GFR Left ESRD GFR <15 on SWAGING MACHINE OPERATOR 13 REFERENCE RANGES: 4.5-5.6% NORMAL 5.7-6.4% SUGGESTS IMPAIRED GLUCOSE META BOLISM >= 6.5% ABNORMAL Procedures Description No Information Available Medical Devices Description No Information Available Encounters Type Date Location Provider Dx Diagnosis Office Visit 06/07/2020 9:20a [facility] [place] Ann L03.113 Cellulitis of right upper li mb Office Visit 05/01/2020 2:00p [facility] [place] Kumar I10 Essential (primary) hyperten elian Z98.84 Bariatric surgery status F33.1 Major depressive disorder, r ecurrent, moderate E11.9 Type 2 diabetes mellitus wit hout complications G47.33 Obstructive sleep apnea (jessenia lt) (pediatric) G93.41 Metabolic encephalopathy Office Visit 01/25/2020 9:00a [facility] Maggie Kerr D.O. 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 01/25/2020 Z79.899 Other detention (current) drug t herapy Maggie Kerr D.O. 01/25/2020 K02.9 Dental caries, unspecified Maggie Kerr D.O. Plan of Treatment Future Appointment(s):* 07/31/2020 10:30 am - Maggie Kerr D.O. at [facility] Functional Status Description No Information Available Mental Status Description No Information Available Referrals Description No Information Available
--- OUTSIDE RECORDS SUMMARY | 2020-09-07 14:27 | CCD | Continuity of Care Document ---
Author Author Steff ELLIOTT PA Organization Unknown Address [address] [address] Phone [phone] Care Team Providers Care Tissue Coordinator Name Role Phone Maggie Kerr DO AUTM [...] SIG Qnty Indications Ordering Provide r Date Valium 2mg Tablets 1 by mouth half an hour prior to mri may take 1 more tab 30 mins after if no effect from first one. 2tabs Darian Darnell MD 05/23/2020 Zyrtec Allergy 10mg Capsules 1 by mouth every day Unknown Potassium Chloride ER 20Meq Tablet s ER 1 by mouth every day Unknown Terconazole 0.4% Cream Unknown Ketoconazole 2% Shampoo Unknown Clindamycin Phosphate 1% Lotion Unknown Diclofenac Sodium 1% Gel apply to affected area as directed one gram three times a day Unkn own Ranitidine HCL 150mg Capsules Unknown Xifaxan 550mg Tablets Unknown Cyclobenzaprine HCL 10mg Tablets Unknown Montelukast Sodium 10mg Tablets Unknown Vitamin D3 50mcg (1999) Capsule s 1 by mouth every day Unknown Vitamin C 1000mg Tablets 1 by mouth every day Unknown Vitamin B-12 1000mcg/15ML Liquid Unknown Lactulose Encephalopathy 10GM/15ML Solution Unknown Metformin HCL ER 500mg Tablets ER 24HR Unknown Glipizide 5mg Tablets Unknown Oxycodone-Acetaminophen 5-325mg [...] Date Facility Test Result H/L Range Note Order 06/14/2020 [facility] [address] [facility] [address] [place] [address] HHH Injections <pending> Laboratory test finding 05/31/2020 [facility] [address] [place] [address] (315)- - Blood Urea Nitrogen 12 mg/dL Normal 7-18 Creatinine With GFR 05/31/2020 [facility] [address] [place] [address] (315)- - Creatinine For GFR 0.69 mg/dL Normal 0.55-1.30 Glomerular Filtration Rate > 60.0 Normal >45 1 Laboratory test finding [facility] [address] [place] [address] (315)- - Coronavirus 2019 Nasopharygeal This test was de <SEE NOTE> 2 Partial Thromboplastin Time 04/21/2020 [facility] Cent[facility] [address] [place] [address] (315)- - Prothrombin Time 14.5 seconds High 11.8-14.0 Inr 1.10 Normal 3 Partial Thromboplastin Time 35.6 seconds Normal 25.0-38.4 Laboratory test finding 04/21/2020 [facility] [address] [place] [address] (315)- - Platelet Count, Automated 162 10 Normal 150-450 Partial Thromboplastin Time <pending> CBC With Differential 04/20/2020 [facility] [address] [address] (315)- - White Blood Count 10.8 10 High 4.0-10.0 Red Blood Count 3.76 10 Low 4.00-5.40 Hemoglobin 11.7 g/dL Low 12.0-15.5 Hematocrit 35.3 % Low 36.0-47.0 Mean Corpuscular Volume 93.9 fl Normal 80.0-96.0 Mean Corpuscular Hemoglobin 31.1 pg Normal 27.0-33.0 Mean Corpuscular HGB Conc 33.1 g/dL Normal 32.0-36.5 Red Cell Distribution Width 13.6 % Normal 11.5-14.5 Platelet Count, Automated 78 10 Low 150-450 4 Neutrophils % 87.4 % High 36.0-66.0 Lymph % 9.3 % Low 24.0-44.0 Marathon % 2.1 % Normal 0.0-5.0 Eos % 0.0 % Normal 0.0-3.0 Baso % 0.1 % Normal 0.0-1.0 Immature Granulocyte % 1.1 % Normal 0-3.0 Nucleated Red Blood Cell % 0.0 % Normal 0-0 Neutrophils # 9.4 10 High 1.5-8.5 Lymph # 1.0 10 Low 1.5-5.0 Marathon # 0.2 10 Normal 0.0-0.8 Eos # 0.0 10 Normal 0.0-0.5 Baso # 0.0 10 Normal 0.0-0.2 Laboratory test finding 04/20/2020 [facility] [address] [place] [address] (315)- - Erythrocyte Sedimentation Rate 38 mm/hr High 0-30 Laboratory test finding 03/15/2020 [facility] [address] [place] [address] (315)- - Coronavirus 2019 Nasopharygeal Testing was perf <SEE NOTE> 5 Laboratory test finding 03/05/2020 [facility] [address] [place] [address] (315)- - Adrenal Antibodies See Separate Rep <SEE NOTE> Normal 6 Estradiol Sensitive LC/MS See Separate Rep <SEE NOTE> Normal 7 Testosterone Free & Total 03/05/2020 [facility] [address] [place] [address] (315)- - Testosterone Free (Direct) See Separate Rep <SEE NOTE> pg/mL Normal 8 Testosterone Total For T&D See Separate Rep <SEE NOTE> ng/dL Normal 9 Laboratory test finding 03/05/2020 [facility] [address] [place] [address] (315)- - 21 Hydroxylase Antibody SEE SEPARATE REP <SEE NOTE> Cadence l 10 1 Units are mL/min/1.73 m2 Chronic Kidney Disease Staging per NKF: Stage I & II GFR >=60 Normal to Mildly Decreased Stage III GFR 30-59 Moderately Decreased Stage IV GFR 15-29 Severely Decreased Stage V GFR <15 Very Little GFR Left ESRD GFR <15 on REMOTE RUBY ON RAILS DEVELOPER 2 This test was developed and its performance characteristics determined by [employer]. This test has not been FDA cleared [...] detected) result in this assay. Performed at: [facility] [address] [id number] Global Compensation Analyst: Sheri Mcclellan MD, Phone: [phone] Not Detected 3 THERAPUTIC HUMAN INR VALUES INDICATIONS NORMAL RANGES PROPHYLAXIS/TREATMENT OF: VENOUS THROMBOSIS 2.0-3.0 PULMONARY EMBOLISM 2.0-3.0 PREVENTION OF SYSTEMIC EMBOLISM FROM: TISSUE HEART VALVES 2.0-3.0 ACUTE MYOCARDIAL INFARCTION 2.0-3.0 VALVULAR HEART DISEASE 2.0-3.0 ATRIAL FIBRILLATION 2.0-3.0 MECHANICAL VALVES(HIGH RISK) 2.5-3.5 RECURRENT MYOCARDIAL INFARCTION 2.5-3.5 4 Scan Verified machine result s 5 Testing was performed using the jacoby(R) SARS-CoV-2 test. This test was developed and its performance characteristics determined by [employer]. This test has not been FDA cleared [...] detected) result in this assay. Performed at: [facility] [address] [id number] Global Compensation Analyst: Sheri Mcclellan MD, Phone: [phone] Not Detected 6 See Separate Report Testing performed at reference lab . Report copy to follow on a separate form. 04/20/20 REF LAB#:[id number] 7 See Separate Report 8 See Separate Report 9 See Separate Report 10 SEE SEPARATE REPORT Procedures Date Code Description Status 04/26/2020 64794 Moderate Sedation Se rvices; Same Phys Intl 15 Mins; PT >= 5 Years Completed 04/26/2020 74579 Epidurography Radiological Super vision & Interpretation Completed 04/26/2020 21621 Injec Anesthetic Age nt/Steroid Trans Epidural Lumb/Sacral Single Completed 04/11/2020 79864 X-Ray Knee Complete W/Obliques & Tunnel And/Or Standing Views Completed 04/11/2020 35014 X-Ray Knee Complete W/Obliques & Tunnel And/Or Standing Views Completed 04/11/2020 19566 X-Ray Knee Complete W/Obliques & Tunnel And/Or Standing Views Completed 03/19/2020 32506 Moderate Sedation Se rvices; Same Phys Intl 15 Mins; PT >= 5 Years Completed 03/19/2020 24878 Epidurography Radiological Super vision & Interpretation Completed 03/19/2020 61297 Injec Anesthetic Age nt/Steroid Trans Epidural Lumb/Sacral Single Completed 02/03/2020 28579 Inject/Drain Joint/Bursa Major C ompleted Medical Devices Description No Information Available Encounters Type Date Location Provider Dx Diagnosis Office Visit 06/13/2020 3:00p [place] Vinson M51.37 [...] osteoarthritis of knee Office Visit 04/05/2020 9:15a [place] Elliott PA M51.37 Other intervertebral disc degeneration, lumbosacral region M51.27 Other intervertebral disc di splacement, lumbosacral region M47.27 Other spondylosis with radic ulopathy, lumbosacral region M48.07 Spinal stenosis, lumbosacral region M43.16 Spondylolisthesis, lumbar re gion Office Visit 02/03/2020 11:15a Toni Falcon MD M17.0 Bilateral primary osteoarthritis of knee Assessments Date Code Description Provider 06/13/2020 M51.37 Other intervertebral disc degene ration, lumbosacral region Stanley Elliott PA 06/13/2020 M51.27 Other intervertebral disc displa cement, lumbosacral region Stanley Pili, PA 06/13/2020 M47.27 Other spondylosis with radiculop athy, lumbosacral region Stanley Elliott PA 06/13/2020 M48.07 Spinal stenosis, lumbosacral reg ion Stanley Elliott PA 06/13/2020 M43.16 Spondylolisthesis, lumbar region Stanley Elliott PA 06/13/2020 M48.02 Spinal stenosis, cervical region Stanley Elliott, PA 06/13/2020 M47.892 Other spondylosis, cervical juan miguel on Stanley Elliott PA 06/13/2020 M50.31 Other cervical disc degeneration , high cervical region Stanley Elliott PA 05/14/2020 M51.37 Other intervertebral disc degene ration, lumbosacral region Stanley Elliott, PA 05/14/2020 M51.27 Other intervertebral disc displa cement, lumbosacral region Stanley Elliott, PA 05/14/2020 M47.27 Other spondylosis with radiculop athy, lumbosacral region Stanley Elliott, PA 05/14/2020 M48.07 Spinal stenosis, lumbosacral reg ion Stanley Ledesmana, PA 05/14/2020 M43.16 Spondylolisthesis, lumbar region Stanley Ledesmana, PA 05/14/2020 M48.02 Spinal stenosis, cervical region Stanley Ledesmana, PA 05/14/2020 M47.892 Other spondylosis, cervical juan miguel on Stanley Ledesmana, PA 05/14/2020 M50.31 Other cervical disc degeneration , high cervical region Stanley Ledesmana, PA 04/26/2020 M51.26 Other intervertebral disc displa cement, lumbar region Darian Darnell MD 04/26/2020 M48.061 Spinal stenosis, lum bar region without neurogenic claudication Darian Darnell MD 04/11/2020 M17.0 Bilateral primary osteoarthritis of knee Twin Falcon MD 04/05/2020 M51.37 Other intervertebral disc degene ration, lumbosacral region Stanley Ledesmaluis PA 04/05/2020 M51.27 Other intervertebral disc displa cement, lumbosacral region Stanley Ledesmana, PA 04/05/2020 M47.27 Other spondylosis with radiculop athy, lumbosacral region Stanley Ledesmana, PA 04/05/2020 M48.07 Spinal stenosis, lumbosacral reg ion Stanley Ledesmana, PA 04/05/2020 M43.16 Spondylolisthesis, lumbar region Stanley Ledesmana, PA 03/19/2020 M51.26 Other intervertebral disc displa cement, lumbar region Darian Darnell MD 03/19/2020 M48.061 Spinal stenosis, lum bar region without neurogenic claudication Darian Darnell MD 02/03/2020 M17.0 Bilateral primary osteoarthritis of knee Twin Falcon MD 02/03/2020 M17.0 Bilateral primary osteoarthritis of knee Twin Falcon MD Plan of Treatment 06/13/2020 - Stanley M [place] Elliott* M51.37 Other intervertebral disc degeneration, lumbosacral region* [...] Referral Status Appt Date Darian Darnell MD [facility]([id number], [id number], [place] D [id number]) PER [employer] NO AUTH REQUIRED OT SCHEDULING NT Created [address] [place], [place] [address] [phone] Darian Darnell MD [facility]([id number] [place] [id number]) [address] [facility] NO AUTH REQUIRED TO SURGERY NT Created [address] [place] [address] [phone] Twin Falcon MD [facility] L1833 [facility] H OPEN BACK X2 (LEFT AND RIGHT) NO AUTH REQUIRED PER CRISLEDA Mcgee REF#[id number]. LM Created [address] [place] [phone]
--- OUTSIDE RECORDS SUMMARY | 2020-09-07 14:27 | CCD | Continuity of Care Document ---
Author Author Steff ELKINS MD Organization Unknown Address [address] [place] [address], it e [address] [place] [address] Phone [phone] Care Team Providers Care Gullet Slitter Name Role Phone Maggie Kerr DO AUTM [phone] Problems Active Problems Provider Date Type [...] H/L Range Note Comprehensive Metabolic Profil 06/24/2020 [facility] [address] [place] [address] (315)- - Glucose, Fasting 157 mg/dL High [...] 0.9 Low 1.2-2.2 Complete Blood Count 06/24/2020 [facility] entr [address] [place] [address] (315)- - White Blood Count 4.6 10 [...] % Normal 0-0 Laboratory test finding 06/24/2020 [facility] [address] [place] [address] (315)- - Erythrocyte Sedimentation Rate 32 mm/hr High 0-30 Prothrombin Time/Inr 06/24/2020 [facility] entr [address] [place] [address] (315)- - Prothrombin Time 14.7 seconds High 12.5-14.3 Inr 1.12 Normal 2 Order 06/14/2020 [facility] [address] [facility] [address] [place] [address] HHH Injections <pending> Creatinine With GFR 05/31/2020 [facility] [address] [place] [address] (315)- - Creatinine For GFR 0.69 mg/dL Normal 0.55-1.30 Glomerular Filtration Rate > 60.0 Normal >45 3 Laboratory test finding 05/31/2020 [facility] [address] [place] [address] (315)- - Blood Urea Nitrogen 12 mg/dL Normal 7-18 Laboratory test finding 04/21/2020 [facility] [address] [place] [address] (315)- - Coronavirus 2019 Nasopharygeal This test was de <SEE NOTE> 4 Partial Thromboplastin Time 04/21/2020 [facility] Cent[facility] [address] [place] [address] (315)- - Prothrombin Time 14.5 seconds High 11.8-14.0 Inr 1.10 Normal 5 Partial Thromboplastin Time 35.6 seconds Normal 25.0-38.4 Laboratory test finding 04/21/2020 [facility] [address] [place] [address] (315)- - Platelet Count, Automated 162 10 Normal 150-450 Partial Thromboplastin Time <pending> CBC With Differential 04/20/2020 [facility] [address] [place] [address] (315)- - White Blood Count 10.8 10 [...] 36.0-66.0 Lymph % 9.3 % Low 24.0-44.0 Anderson % 2.1 % Normal 0.0-5.0 Eos % 0.0 % Normal 0.0-3.0 Baso % 0.1 % Normal 0.0-1.0 Immature Granulocyte % 1.1 % Normal 0-3.0 Nucleated Red Blood Cell % 0.0 % Normal 0-0 Neutrophils # 9.4 10 High 1.5-8.5 Lymph # 1.0 10 Low 1.5-5.0 Anderson # 0.2 10 Normal 0.0-0.8 Eos # 0.0 10 Normal 0.0-0.5 Baso # 0.0 10 Normal 0.0-0.2 Laboratory test finding 04/20/2020 [facility] [address] [place] [address] (315)- - Erythrocyte Sedimentation Rate 38 mm/hr High 0-30 Laboratory test finding 03/15/2020 [facility] [address] [place] [address] (315)- - Coronavirus 2019 Nasopharygeal Testing was perf <SEE NOTE> 7 Laboratory test finding 03/05/2020 [facility] [address] [place] [address] (315)- - Adrenal Antibodies See Separate Rep <SEE NOTE> Normal 8 Estradiol Sensitive LC/MS See Separate Rep <SEE NOTE> Normal 9 Testosterone Free & Total 03/05/2020 [facility] Cent[facility] [address] [place] [address] (315)- - Testosterone Free (Direct) See Separate Rep <SEE NOTE> pg/mL Normal 10 Testosterone Total For T&D See Separate Rep <SEE NOTE> ng/dL Normal 11 Laboratory test finding 03/05/2020 [facility] [address] [place] [address] (315)- - 21 Hydroxylase Antibody SEE SEPARATE REP <SEE NOTE> Cadence l 12 1 Units are mL/min/1.73 m2 Chronic Kidney Disease Staging per NKF: Stage I & II GFR >=60 Normal to Mildly Decreased Stage III GFR 30-59 Moderately Decreased Stage IV GFR 15-29 Severely Decreased Stage V GFR <15 Very Little GFR Left ESRD GFR <15 on COMPRESSION MOLDING MACHINE SETTER 2 THERAPUTIC HUMAN INR VALUES INDICATIONS NORMAL [...] Little GFR Left ESRD GFR <15 on COMPRESSION MOLDING MACHINE SETTER 4 This test was developed and its performance characteristics determined by [employer]. This test has not been FDA cleared [...] detected) result in this assay. Performed at: [address] [id number] Statistical Clerk Advertising: Sheri Mcclellan MD, Phone: [phone] Not Detected 5 THERAPUTIC HUMAN INR VALUES [...] developed and its performance characteristics determined by [facility]. This test has not been FDA cleared [...] detected) result in this assay. Performed at: [address] [id number] Statistical Clerk Advertising: Sheri Mcclellan MD, Phone: [phone] Not Detected 8 See Separate Report Testing performed at reference lab . Report copy to follow on a separate form. 04/20/20 REF LAB#:[id number] 9 See Separate Report 10 See Separate Report 11 See Separate Report 12 SEE SEPARATE REPORT Procedures Date Code Description Status 04/26/2020 45807 Moderate Sedation Se rvices; Same Phys Intl 15 Mins; PT >= 5 Years Completed 04/26/2020 03278 Epidurography Radiological Super vision & Interpretation Completed 04/26/2020 24514 Injec Anesthetic Age nt/Steroid Trans Epidural Lumb/Sacral Single Completed 04/11/2020 41468 X-Ray Knee Complete W/Obliques & Tunnel And/Or Standing Views Completed 04/11/2020 72231 X-Ray Knee Complete W/Obliques & Tunnel And/Or Standing Views Completed 04/11/2020 68670 X-Ray Knee Complete W/Obliques & Tunnel And/Or Standing Views Completed 03/19/2020 92488 Moderate Sedation Se rvices; Same Phys Intl 15 Mins; PT >= 5 Years Completed 03/19/2020 91384 Epidurography Radiological Super vision & Interpretation Completed 03/19/2020 05911 Injec Anesthetic Age nt/Steroid Trans Epidural Lumb/Sacral Single Completed 02/03/202098420 Inject/Drain Joint/Bursa Major C ompleted Medical Devices Description No Information Available Encounters Type Date Location Provider Dx Diagnosis Office Visit 06/13/2020 3:00p [place] M51.37 Other intervertebral disc degeneration, lumbosacral region M51.27 Other intervertebral disc di splacement, lumbosacral region M47.27 Other spondylosis with radic ulopathy, lumbosacral region M48.07 Spinal stenosis, lumbosacral region M43.16 Spondylolisthesis, lumbar re gion M48.02 Spinal stenosis, cervical re gion M47.892 Other spondylosis, cervical region M50.31 Other cervical disc degenera tion, high cervical region Office Visit 05/14/2020 1:30p [place] M51.37 Other intervertebral disc degeneration, lumbosacral region M51.27 Other intervertebral disc di splacement, lumbosacral region M47.27 Other spondylosis with radic ulopathy, lumbosacral region M48.07 Spinal stenosis, lumbosacral region M43.16 Spondylolisthesis, lumbar re gion M48.02 Spinal stenosis, cervical re gion M47.892 Other spondylosis, cervical region M50.31 Other cervical disc degenera tion, high cervical region Office Visit 04/11/2020 9:15a [place] Elkins MD M17.0 Bilateral primary osteoarthritis of knee Office Visit 04/05/2020 9:15a [place] M51.37 Other intervertebral disc degeneration, lumbosacral [...] ration, lumbosacral region Stanley M Pili, PA 06/13/2020 M51.27 Other intervertebral disc [...] Elkins MD Plan of Treatment Future Appointment(s):* 07/05/2020 9:30 am - Jammie Andrews at Surgery [facility] Inpatient * 07/05/2020 9:30 am - Twin Elkins MD at Surgery [facility] Inpatient 06/13/2020 - [place] Crocker* M51.37 Other [...] Status Appt Date Darian Darnell MD [facility]([id number], [id number], [place] D [address]) PER [employer] NO AUTH REQUIRED OT SCHEDULING NT Created [facility], [address] [place] [address] [phone] Darian Darnell MD [facility]([id number] [place] [address]) PER [employer] NO AUTH REQUIRED TO SURGERY NT Created [address] [facility], [address] [place] [address] [phone] Twin Elkins MD [facility] L1833 [facility] H OPEN BACK X2 (LEFT AND RIGHT) NO AUTH REQUIRED PER CRISELDA Mcgee REF#[id number]. LM Created [address] [facility], [address] [place] [address] [phone]
--- OUTSIDE RECORDS SUMMARY | 2020-09-07 14:27 | CCD | Continuity of Care Document ---
Author Author Steff ELKINS MD Organization Unknown Address [address] [place] [address], it e [address] [place] [address] Phone [phone] Care Team Providers Care Poultry Inseminator Name Role Phone Maggie Kerr DO AUTM [phone] Problems Active Problems Provider Date Type [...] H/L Range Note Comprehensive Metabolic Profil 06/24/2020 [facility] [address] [place] [address] (315)- - Glucose, Fasting 157 mg/dL High [...] 0.9 Low 1.2-2.2 Complete Blood Count 06/24/2020 [facility] entr [address] [place] [address] (315)- - White Blood Count 4.6 10 [...] % Normal 0-0 Laboratory test finding 06/24/2020 [facility] [address] [place] [address] (315)- - Erythrocyte Sedimentation Rate 32 mm/hr High 0-30 Prothrombin Time/Inr 06/24/2020 [facility] entr [address] [place] [address] (315)- - Prothrombin Time 14.7 seconds High 12.5-14.3 Inr 1.12 Normal 2 Order 06/14/2020 [facility] [address] [facility] [address] [place] [address] [facility]HH Injections <pending> Creatinine With GFR 05/31/2020 [facility] [address] [place] [address] (315)- - Creatinine For GFR 0.69 mg/dL Normal 0.55-1.30 Glomerular Filtration Rate > 60.0 Normal >45 3 Laboratory test finding 05/31/2020 [facility] [address] [place] [address] (315)- - Blood Urea Nitrogen 12 mg/dL Normal 7-18 Laboratory test finding 04/21/2020 [facility] [address] [place] [address] (315)- - Coronavirus 2019 Nasopharygeal This test was de <SEE NOTE> 4 Partial Thromboplastin Time 04/21/2020 [facility] [address] [place] [address] (315)- - Prothrombin Time 14.5 seconds High 11.8-14.0 Inr 1.10 Normal 5 Partial Thromboplastin Time 35.6 seconds Normal 25.0-38.4 Laboratory test finding 04/21/2020 [facility] [address] [place] [address] (315)- - Platelet Count, Automated 162 10 Normal 150-450 Partial Thromboplastin Time <pending> CBC With Differential 04/20/2020 [facility] [address] [place] [address] (315)- - White Blood Count 10.8 10 [...] 36.0-66.0 Lymph % 9.3 % Low 24.0-44.0 [place] % 2.1 % Normal 0.0-5.0 Eos % 0.0 % Normal 0.0-3.0 Baso % 0.1 % Normal 0.0-1.0 Immature Granulocyte % 1.1 % Normal 0-3.0 Nucleated Red Blood Cell % 0.0 % Normal 0-0 Neutrophils # 9.4 10 High 1.5-8.5 Lymph # 1.0 10 Low 1.5-5.0 [place] # 0.2 10 Normal 0.0-0.8 Eos # 0.0 10 Normal 0.0-0.5 Baso # 0.0 10 Normal 0.0-0.2 Laboratory test finding 04/20/2020 [facility] [address] [place] [address] (315)- - Erythrocyte Sedimentation Rate 38 mm/hr High 0-30 Laboratory test finding 03/15/2020 [facility] [address] [place] [address] (315)- - Coronavirus 2019 Nasopharygeal Testing was perf <SEE NOTE> 7 Laboratory test finding 03/05/2020 [facility] [address] [place] [address] (315)- - Adrenal Antibodies See Separate Rep <SEE NOTE> Normal 8 Estradiol Sensitive LC/MS See Separate Rep <SEE NOTE> Normal 9 Testosterone Free & Total 03/05/2020 [facility] [address] [place] [address] (315)- - Testosterone Free (Direct) See Separate Rep <SEE NOTE> pg/mL Normal 10 Testosterone Total For T&D See Separate Rep <SEE NOTE> ng/dL Normal 11 Laboratory test finding 03/05/2020 [facility] [address] [place] [address] (315)- - 21 Hydroxylase Antibody SEE SEPARATE REP <SEE NOTE> Cadence l 12 1 Units are mL/min/1.73 m2 Chronic Kidney Disease Staging per NKF: Stage I & II GFR >=60 Normal to Mildly Decreased Stage III GFR 30-59 Moderately Decreased Stage IV GFR 15-29 Severely Decreased Stage V GFR <15 Very Little GFR Left ESRD GFR <15 on CENTER MGR 2 THERAPUTIC HUMAN INR VALUES INDICATIONS NORMAL [...] Little GFR Left ESRD GFR <15 on CENTER MGR 4 This test was developed and its performance characteristics determined by [facility]. This test has not been FDA cleared [...] detected) result in this assay. Performed at: [address] [id number] Post Office Markup Clerk: Sheri Mcclellan MD, Phone: [phone] Not Detected 5 THERAPUTIC HUMAN INR VALUES [...] developed and its performance characteristics determined by [facility]. This test has not been FDA cleared [...] detected) result in this assay. Performed at: [address] [id number] Post Office Markup Clerk: Sheri Mcclellan MD, Phone: [phone] Not Detected 8 See Separate Report Testing performed at reference lab . Report copy to follow on a separate form. 04/20/20 REF LAB#:[id number] See Separate Report 10 See Separate Report 11 See Separate Report 12 SEE SEPARATE REPORT Procedures Date Code Description Status 04/26/2020 33378 Moderate Sedation Se rvices; Same Phys Intl 15 Mins; PT >= 5 Years Completed 04/26/2020 47032 Epidurography Radiological Super vision & Interpretation Completed 04/26/2020 36245 Injec Anesthetic Age nt/Steroid Trans Epidural Lumb/Sacral Single Completed 04/11/2020 02389 X-Ray Knee Complete W/Obliques & Tunnel And/Or Standing Views Completed 04/11/2020 19265 X-Ray Knee Complete W/Obliques & Tunnel And/Or Standing Views Completed 04/11/2020 62716 X-Ray Knee Complete W/Obliques & Tunnel And/Or Standing Views Completed 03/19/2020 59363 Moderate Sedation Se rvices; Same Phys Intl 15 Mins; PT >= 5 Years Completed 03/19/2020 90356 Epidurography Radiological Super vision & Interpretation Completed 03/19/2020 22818 Injec Anesthetic Age nt/Steroid Trans Epidural Lumb/Sacral Single Completed 02/03/202099620 Inject/Drain Joint/Bursa Major C ompleted Medical Devices Description No Information Available Encounters Type Date Location Provider Dx Diagnosis Office Visit 06/13/2020 3:00p GorinRICHMOND Bradshaw M51.37 Other intervertebral disc degeneration, lumbosacral region M51.27 Other intervertebral disc di splacement, lumbosacral region M47.27 Other spondylosis with radic ulopathy, lumbosacral region M48.07 Spinal stenosis, lumbosacral region M43.16 Spondylolisthesis, lumbar re gion M48.02 Spinal stenosis, cervical re gion M47.892 Other spondylosis, cervical region M50.31 Other cervical disc degenera tion, high cervical region Office Visit 05/14/2020 1:30p GorinRICHMOND Bradshaw M51.37 Other intervertebral disc degeneration, lumbosacral region M51.27 Other intervertebral disc di splacement, lumbosacral region M47.27 Other spondylosis with radic ulopathy, lumbosacral region M48.07 Spinal stenosis, lumbosacral region M43.16 Spondylolisthesis, lumbar re gion M48.02 Spinal stenosis, cervical re gion M47.892 Other spondylosis, cervical region M50.31 Other cervical disc degenera tion, high cervical region Office Visit 04/11/2020 9:15a Gorinstacey Elkins MD M17.0 Bilateral primary osteoarthritis of knee Office Visit 04/05/2020 9:15a GorinRICHMOND Bradshaw M51.37 Other intervertebral disc degeneration, lumbosacral [...] disc displa cement, lumbosacral region [facility] [place] 06/13/2020 M47.27 Other spondylosis with radiculop athy, lumbosacral region [facility] 06/13/2020 M48.07 Spinal stenosis, lumbosacral reg ion [facility] 06/13/2020 M43.16 Spondylolisthesis, lumbar region [facility] [place] 06/13/2020 M48.02 Spinal stenosis, cervical region [facility] [place] 06/13/2020 M47.892 Other spondylosis, cervical juan miguel on [facility] 06/13/2020 M50.31 Other cervical disc degeneration , high cervical region [facility] [place] 05/14/2020 M51.37 Other intervertebral disc degene ration, lumbosacral region [facility] 05/14/2020 M51.27 Other intervertebral disc displa cement, lumbosacral region [facility] 05/14/2020 M47.27 Other spondylosis with radiculop athy, lumbosacral region [facility] 05/14/2020 M48.07 Spinal stenosis, lumbosacral reg ion [facility] 05/14/2020 M43.16 Spondylolisthesis, lumbar region [facility] 05/14/2020 M48.02 Spinal stenosis, cervical region [facility] 05/14/2020 M47.892 Other spondylosis, cervical juan miguel on [facility] 05/14/2020 M50.31 Other cervical disc degeneration , high cervical region [facility] 04/26/2020 M51.26 Other intervertebral disc displa cement, lumbar region Darian Darnell MD 04/26/2020 M48.061 Spinal stenosis, lum bar region without neurogenic claudication Darian Darnell MD 04/11/2020 M17.0 Bilateral primary osteoarthritis of knee Twin Elkins MD 04/05/2020 M51.37 Other intervertebral disc degene ration, lumbosacral region [facility] 04/05/2020 M51.27 Other intervertebral disc displa cement, lumbosacral region RICHMOND Crocker 04/05/2020 M47.27 Other spondylosis with radiculop athy, lumbosacral region RICHMOND Crocker 04/05/2020 M48.07 Spinal stenosis, lumbosacral reg ion RICHMOND Crocker 04/05/2020 M43.16 Spondylolisthesis, lumbar region RICHMOND Crocker 03/19/2020 M51.26 Other intervertebral disc displa cement, lumbar region Darian Darnell MD 03/19/2020 M48.061 Spinal stenosis, lum bar region without neurogenic claudication Darian Darenll MD 02/03/2020 M17.0 Bilateral primary osteoarthritis of knee Twin Elkins MD 02/03/2020 M17.0 Bilateral primary osteoarthritis of knee Twin Elkins MD Plan of Treatment Future Appointment(s):* 07/05/2020 9:30 am - Jammie Andrews at [facility] Inpatient * 07/05/2020 9:30 am - Twin Elkins MD at Surgery [facility] Inpatient 06/13/2020 - RICHMOND Crocker* M51.37 [...] Status Appt Date Darian Darnell MD [facility]([id number], [id number], [place] D [id number]) PER [employer] NO AUTH REQUIRED OT SCHEDULING NT Created [facility] [facility], [address] [place] [address] [phone] Darian Darnell MD [facility]([id number] [place] [id number]) PER [employer] NO AUTH REQUIRED TO SURGERY NT Created [address] [facility], [address] [place] [address] [phone] Twin Elkins MD [facility] [id number] [facility] H OPEN BACK X2 (LEFT AND RIGHT) NO AUTH REQUIRED PER CRISELDA Mcgee REF#[id number]. LM Created [address] [facility], [address] [place] [address] [phone]
--- OUTSIDE RECORDS SUMMARY | 2020-09-07 14:30 | CCD ---
Author Author [facility] Organization [facility] Address Unknown Phone Unavailable Care Team Providers Care Shingler Name Role Phone Fons, M Sandy REVENUE MANAGER Unavailable Unavailable Fons, M Sandy REVENUE MANAGER Unavailable Unavailable Fons, M Sandy REVENUE MANAGER Unavailable Unavailable Fons, M Sandy REVENUE MANAGER Unavailable Unavailable Fons, M Sandy REVENUE MANAGER Unavailable Unavailable Fons, M Sandy REVENUE MANAGER Unavailable Unavailable Fons, M Sandy REVENUE MANAGER Unavailable Unavailable Fons, M Sandy REVENUE MANAGER Unavailable Unavailable Fons, M Sandy REVENUE MANAGER Unavailable Unavailable Fons, M Sandy REVENUE MANAGER Unavailable Unavailable Fons, M Sandy REVENUE MANAGER Unavailable Unavailable Fons, M Sandy REVENUE MANAGER Unavailable Unavailable Fons, M Sandy REVENUE MANAGER Unavailable Unavailable Fons, M Sandy REVENUE MANAGER Unavailable Unavailable Fons, M Sandy REVENUE MANAGER Unavailable Unavailable Fons, M Sandy REVENUE MANAGER Unavailable Unavailable Fons, M Snady REVENUE MANAGER Unavailable Unavailable Fons, M Sandy REVENUE MANAGER Unavailable Unavailable Fons, M Sandy REVENUE MANAGER Unavailable Unavailable Fons, M Sandy REVENUE MANAGER Unavailable Unavailable Fons, M Sandy REVENUE MANAGER Unavailable Unavailable Fons, M Sandy REVENUE MANAGER Unavailable Unavailable Fons, M Sandy REVENUE MANAGER Unavailable Unavailable Fons, M Sandy REVENUE MANAGER Unavailable Unavailable Fons, M Sandy REVENUE MANAGER Unavailable Unavailable Fons, M Sandy REVENUE MANAGER Unavailable Unavailable Fons, M Sandy REVENUE MANAGER Unavailable Unavailable Fons, M Sandy REVENUE MANAGER Unavailable Unavailable Fons, M Sandy REVENUE MANAGER Unavailable Unavailable Fons, M Sandy REVENUE MANAGER Unavailable Unavailable Fons, M Sandy REVENUE MANAGER Unavailable Unavailable Fons, M Sandy REVENUE MANAGER Unavailable Unavailable Fons, M Sandy REVENUE MANAGER Unavailable Unavailable Fons, M Sandy REVENUE MANAGER Unavailable Unavailable Fons, M Sandy REVENUE MANAGER Unavailable Unavailable Fons, M Sandy REVENUE MANAGER Unavailable Unavailable Fons, M Sandy REVENUE MANAGER Unavailable Unavailable Fons, M Sandy REVENUE MANAGER Unavailable Unavailable Fons, M Sandy REVENUE MANAGER Unavailable Unavailable Fons, M Sandy REVENUE MANAGER Unavailable Unavailable Fons, M Sandy REVENUE MANAGER Unavailable Unavailable Fons, M Sandy REVENUE MANAGER Unavailable Unavailable Fons, M Sandy REVENUE MANAGER Unavailable Unavailable Fons, M Sandy REVENUE MANAGER Unavailable Unavailable Fons, M Sandy REVENUE MANAGER Unavailable Unavailable Fons, M Sandy REVENUE MANAGER Unavailable Unavailable Fons, M Sandy REVENUE MANAGER Unavailable Unavailable Fons, M Sandy REVENUE MANAGER Unavailable Unavailable Fons, M Sandy REVENUE MANAGER Unavailable Unavailable Fons, M Sandy REVENUE MANAGER Unavailable Unavailable Fons, M Sandy REVENUE MANAGER Unavailable Unavailable Fons, M Sandy REVENUE MANAGER Unavailable Unavailable Fons, M Sandy REVENUE MANAGER Unavailable Unavailable Fons, M Sandy REVENUE MANAGER Unavailable Unavailable [facility], JLAM Unavailable Unavailable Amada Patel MD Unavailable Unavailable Amada Patel MD Unavailable Unavailable Amada Patel MD Unavailable Unavailable Amada Patel MD Unavailable Unavailable Amada Patel MD Unavailable Unavailable Amada Patel MD Unavailable Unavailable Amada Patel MD Unavailable Unavailable Amada Patel MD Unavailable Unavailable Amada Patel MD Unavailable Unavailable Amada Patel MD Unavailable Unavailable Amada Patel MD Unavailable Unavailable Amada Patel MD Unavailable Unavailable Amada Patel MD Unavailable Unavailable Amanda, Amada Chavez MD Unavailable Unavailable Amanda, Amada Chavez MD Unavailable Unavailable Amanda, Amada Chavez MD Unavailable Unavailable Amanda, Amada Chavez MD Unavailable Unavailable Amanda, Amada Chavez MD Unavailable Unavailable Amanda, Amada Chavez MD Unavailable Unavailable Amanda, Amada Chavez MD Unavailable Unavailable Amanda, Amada Chavez MD Unavailable Unavailable Amanda, Amada Chavez MD Unavailable Unavailable Amanda, Amada Chavez MD Unavailable Unavailable Amanda, Amada Chavez MD Unavailable Unavailable Amanda, Amada Chavez MD Unavailable Unavailable Amanda, Amada Chavez MD Unavailable Unavailable Amanda, Amada Chavez MD Unavailable Unavailable Amanda, Amada Chavez MD Unavailable Unavailable Amanda, Amada Chavez MD Unavailable Unavailable Amanda, Amada Chavez MD Unavailable Unavailable Amanda, Amada Chavez MD Unavailable Unavailable Amanda, Amada Chavez MD Unavailable Unavailable Amanda, Amada Chavez MD Unavailable Unavailable Amanda, Amada Chavez MD Unavailable Unavailable Amanda, Amada Chavez MD Unavailable Unavailable Amanda, Amada Chvaez MD Unavailable Unavailable Amanda, Amada Chavez MD Unavailable Unavailable Amanda, Amada Chavez MD Unavailable Unavailable Amanda, Amada Chavez MD Unavailable Unavailable Amanda, Amada Chavez MD Unavailable Unavailable Amanda, Amada Chavez MD Unavailable Unavailable Amanda, Amada Chavez MD Unavailable Unavailable Amanda, Amada Chavez MD Unavailable Unavailable Amanda, Amada Chavez MD Unavailable Unavailable Amanda, Amada Chavez MD Unavailable Unavailable Amanda, Amada Chavez MD Unavailable Unavailable Amanda, Amada Chavez MD Unavailable Unavailable Amanda, Amada Chavez MD Unavailable Unavailable AmandaAmada MD Unavailable Unavailable Amanda, Amada Chavez MD Unavailable Unavailable Amadna, Amada Chavez MD Unavailable Unavailable Amanda, Amada Chavez MD Unavailable Unavailable Amanda, Amada Chavez MD Unavailable Unavailable Amanda, Amada Chavez MD Unavailable Unavailable Amanda, Amada Chavez MD Unavailable Unavailable Amanda, Amada Chavez MD Unavailable Unavailable Amanda, Amada Chavez MD Unavailable Unavailable Amanda, Amada Chavez MD Unavailable Unavailable Amanda, Amada Chavez MD Unavailable Unavailable Amanda, Amada Chavez MD Unavailable Unavailable Amanda, Amada Chavez MD Unavailable Unavailable Amanda, Amada Chavez MD Unavailable Unavailable Amanda, Amada Chavez MD Unavailable Unavailable Amanda, Amada Chavez MD Unavailable Unavailable Amanda, Amada Chavez MD Unavailable Unavailable Amanda, Amada Chavez MD Unavailable Unavailable Amanda, Amada Chavez MD Unavailable Unavailable Amanda, Amada Chavez MD Unavailable Unavailable Amanda, Amada Chavez MD Unavailable Unavailable Amanda, Amada Kathy MD Unavailable Unavailable MCELHERAN, ALICIA PA Unavailable Unavailable MCELHERAN, ALICIA PA Unavailable Unavailable MCELHERAN, ALICIA PA Unavailable Unavailable MCELHERAN, ALICIA PA Unavailable Unavailable MCELHERAN, ALICIA PA Unavailable Unavailable MCELHERAN, ALICIA PA Unavailable Unavailable MCELHERAN, ALICIA PA Unavailable Unavailable MCELHERAN, ALICIA PA Unavailable Unavailable MCELHERAN, ALICIA PA Unavailable Unavailable MCELHERAN, ALICIA PA Unavailable Unavailable MCELHERAN, ALICIA PA Unavailable Unavailable MCELHERAN, ALICIA PA Unavailable Unavailable MCELHERAN, ALICIA PA Unavailable Unavailable MCELHERAN, ALICIA PA Unavailable Unavailable MCELHERAN, ALICIA PA Unavailable Unavailable MCELHERAN, ALICIA PA Unavailable Unavailable MCELHERAN, ALICIA PA Unavailable Unavailable MCELHERAN, ALICIA PA Unavailable Unavailable MCELHERAN, ALICIA PA Unavailable Unavailable MCELHERAN, ALICIA PA Unavailable Unavailable MCELHERAN, ALICIA PA Unavailable Unavailable MCELHERAN, ALICIA PA Unavailable Unavailable MCELHERAN, ALICIA PA Unavailable Unavailable MCELHERAN, ALICIA PA Unavailable Unavailable MCELHERAN, ALICIA PA Unavailable Unavailable MCELHERAN, ALICIA PA Unavailable Unavailable MCELHERAN, ALICIA PA Unavailable Unavailable MCELHERAN, ALICIA PA Unavailable Unavailable DRAZEK, I JIM PA Unavailable Unavailable DRAZEK, I JIM PA Unavailable Unavailable DRAZEK, I JIM PA Unavailable Unavailable DRAZEK, I JIM PA Unavailable Unavailable DRAZEK, I JIM PA Unavailable Unavailable DRAZEK, I JIM PA Unavailable Unavailable DRAZEK, I JIM PA Unavailable Unavailable DRAZEK, I JIM PA Unavailable Unavailable DRAZEK, I JIM PA Unavailable Unavailable DRAZEK, I JIM PA Unavailable Unavailable DRAZEK, I JIM PA Unavailable Unavailable DRAZEK, I JIM PA Unavailable Unavailable DRAZEK, I JIM PA Unavailable Unavailable DRAZEK, I JIM PA Unavailable Unavailable DRAZEK, I JIM PA Unavailable Unavailable DRAZEK, I JIM PA Unavailable Unavailable DRAZEK, I JIM PA Unavailable Unavailable DRAZEK, I JIM PA Unavailable Unavailable DRAZEK, I JIM PA Unavailable Unavailable DRAZEK, I JIM PA Unavailable Unavailable DRAZEK, I JIM PA Unavailable Unavailable DRAZEK, I JIM PA Unavailable Unavailable DRAZEK, I JIM PA Unavailable Unavailable DRAZEK, I JIM PA Unavailable Unavailable DRAZEK, I JIM PA Unavailable Unavailable DRAZEK, I JIM PA Unavailable Unavailable DRAZEK, I JIM PA Unavailable Unavailable DRAZEK, I JIM PA Unavailable Unavailable DRAZEK, I JIM PA Unavailable Unavailable DRAZEK, I JIM PA Unavailable Unavailable Fish, B Twin RUVALCABA Unavailable Unavailable Fish, B Twin RUVALCABA Unavailable Unavailable Fish, B Twin RUVALCABA Unavailable Unavailable Fish, B Twin RUVALCABA Unavailable Unavailable Fish, B Twin RUVALCABA Unavailable Unavailable Fish, B Twin RUVALCABA Unavailable Unavailable Fish, B Twin RUVALCABA Unavailable Unavailable Fish, B Twin RUVALCABA Unavailable Unavailable Fish, B Twin RUVALCABA Unavailable Unavailable Fish, B Twin RUVALCABA Unavailable Unavailable Fish, B Twin RUVALCABA Unavailable Unavailable Fish, B Twin RUVALCABA Unavailable Unavailable Fish, B Twin RUVALCABA Unavailable Unavailable Fish, B Twin RUVALCABA Unavailable Unavailable Fish, B Twin RUVALCABA Unavailable Unavailable Fish, B Twin RUVALCABA Unavailable Unavailable Fish, B Twin RUVALCABA Unavailable Unavailable Fish, B Twin RUVALCABA Unavailable Unavailable Fish, B Twin RUVALCABA Unavailable Unavailable Fish, B Twin RUVALCABA Unavailable Unavailable Fish, B Twin RUVALCABA Unavailable Unavailable Fish, B Twin RUVALCABA Unavailable Unavailable Fish, B Twin RUVALCABA Unavailable Unavailable Fish, B Twin RUVALCABA Unavailable Unavailable Fish, B Twin RUVALCABA Unavailable Unavailable Fish, B Twin RUVALCABA Unavailable Unavailable Fish, B Twin RUVALCABA Unavailable Unavailable Fish, B Twin RUVALCABA Unavailable Unavailable Fish, B Twin RUVALCABA Unavailable Unavailable Fish, B Twin RUVALCABA Unavailable Unavailable Fish, B Twin RUVALCABA Unavailable Unavailable Fish, B Twin RUVALCABA Unavailable Unavailable Fish, B Twin RUVALCABA Unavailable Unavailable Fish, B Twin RUVALCABA Unavailable Unavailable Fish, B Twin RUVALCABA Unavailable Unavailable Fish, B Twin RUVALCABA Unavailable Unavailable Fish, B Twin RUVALCABA Unavailable Unavailable Fish, B Twin RUVALCABA Unavailable Unavailable Fish, B Twin RUVALCABA Unavailable Unavailable Fish, B Twin RUVALCABA Unavailable Unavailable Fish, B Twin RUVALCABA Unavailable Unavailable Fish, B Twin RUVALCABA Unavailable Unavailable Fish, B Twin RUVALCABA Unavailable Unavailable Fish, B Twin RUVALCABA Unavailable Unavailable Fish, B Twin RUVALCABA Unavailable Unavailable Fish, B Twin RUVALCABA Unavailable Unavailable Fish, B Twin RUVALCABA Unavailable Unavailable Fish, B Twin RUVALCABA Unavailable Unavailable Fish, B Twin RUVALCABA Unavailable Unavailable Fish, B Twin RUVALCABA Unavailable Unavailable Fish, B Twin RUVALCABA Unavailable Unavailable Fish, B Twin RUVALCABA Unavailable Unavailable Fish, B Twin RUVALCABA Unavailable Unavailable Corina Jacobs Unavailable Jacobs, A Nicolle PA Unavailable Jacobs, A Nicolle PA Unavailable Jacobs, A Nicolle PA Unavailable Jacobs, A Nicolle PA Unavailable Jacobs, A Nicolle PA Unavailable Jacobs, A Nicolle PA Unavailable Jacobs, A Nicolle PA Unavailable Jacobs, A Nicolle PA Unavailable Jacobs, A Nicolle PA Unavailable Jacobs, A Nicolle PA Unavailable Jacobs, A Nicolle PA Unavailable Jacobs, A Nicolle PA Unavailable Jacobs, A Nicolle PA Unavailable Jacobs, A Nicolle PA Unavailable Jacobs, A Nicolle PA Unavailable Jacobs, A Nicolle PA Unavailable Jacobs, A Nicolle PA Unavailable Jacobs, A Nicolle PA Unavailable Jacobs, A Nicolle PA Unavailable Jacobs, A Nicolle PA Unavailable Jacobs, A Nicolle PA Unavailable Jacobs, A Nicolle PA Unavailable Jacobs, A Nicolle PA Unavailable Jacobs, A Nicolle PA Unavailable Jacobs, A Nicolle PA Unavailable Jacobs, A Nicolle PA Unavailable Jacobs, A Nicolle PA Unavailable Jacobs, A Nicolle PA Unavailable Jacobs, A Nicolle PA Unavailable Jacobs, A Nicolle PA Unavailable Jacobs, A Nicolle PA Unavailable Jacobs, A Nicolle PA Unavailable Jacobs, A Nicolle PA Unavailable Jacobs, A Nicolle PA Unavailable Jacobs, A Nicolle PA Unavailable Jacobs, A Nicolle PA Unavailable Jacobs, A Nicolle PA Unavailable Jacobs, A Nicolle PA Unavailable Jacobs, A Nicolle PA Unavailable Fish, B Twin RUVALCABA Unavailable Unavailable Fish, B Twin RUVALCABA Unavailable Unavailable Fish, B Twin RUVALCABA Unavailable Unavailable Fish, B Twin RUVALCABA Unavailable Unavailable Fish, B Twin RUVALCABA Unavailable Unavailable Fish, B Twin RUVALCABA Unavailable Unavailable Fish, B Twin RUVALCABA Unavailable Unavailable Fish, B Twin RUVALCABA Unavailable Unavailable Fish, B Twin RUVALCABA Unavailable Unavailable Fish, B Twin RUVALCABA Unavailable Unavailable Fish, B Twin RUVALCABA Unavailable Unavailable Fish, B Twin RUVALCABA Unavailable Unavailable Fish, B Twin RUVALCABA Unavailable Unavailable Fish, B Twin RUVALCABA Unavailable Unavailable Fish, B Twin RUVALCABA Unavailable Unavailable Fish, B Twin RUVALCABA Unavailable Unavailable Fish, B Twin RUVALCABA Unavailable Unavailable Fish, B Twin RUVALCABA Unavailable Unavailable Fish, B Twin RUVALCABA Unavailable Unavailable Fish, B Twin RUVALCABA Unavailable Unavailable Fish, B Twin RUVALCABA Unavailable Unavailable Fish, B Twin RUVALCABA Unavailable Unavailable Fish, B Twin RUVALCABA Unavailable Unavailable Fish, B Twin RUVALCABA Unavailable Unavailable Fish, B Twin RUVALCABA Unavailable Unavailable Fish, B Twin RUVALCABA Unavailable Unavailable Fish, B Twin RUVALCABA Unavailable Unavailable Fish, B Twin RUVALCABA Unavailable Unavailable Fish, B Twin RUVALCABA Unavailable Unavailable Fish, B Twin RUVALCABA Unavailable Unavailable Fish, B Twin RUVALCABA Unavailable Unavailable Fish, B Twin RUVALCABA Unavailable Unavailable Fish, B Twin RUVALCABA Unavailable Unavailable Fish, B Twin RUVALCABA Unavailable Unavailable Fish, B Twin RUVALCABA Unavailable Unavailable Fish, B Twin RUVALCABA Unavailable Unavailable Fish, B Twin RUVALCABA Unavailable Unavailable Fish, B Twin RUVALCABA Unavailable Unavailable Fish, B Twin RUVALCABA Unavailable Unavailable Fish, B Twin RUVALCABA Unavailable Unavailable Fish, B Twin RUVALCABA Unavailable Unavailable Fish, B Twin RUVALCABA Unavailable Unavailable Fish, B Twin MD Unavailable Unavailable Fish, Philip Murcia MD Unavailable Unavailable Fish, Philip Murcia MD Unavailable Unavailable Fish, Philip Murcia MD Unavailable Unavailable Fish, Philip Murcia MD Unavailable Unavailable Fish, Philip Murcia MD Unavailable Unavailable Fish, Philip Murcia MD Unavailable Unavailable Fish, Philip Murcia MD Unavailable Unavailable Fish, Philip Murcia MD Unavailable Unavailable Fish, Philip Murcia MD Unavailable Unavailable Fish, Philip Murcia MD Unavailable Unavailable Regan, Rayo Carcamo MD Unavailable Unavailable Regan, Rayo Carcamo MD Unavailable Unavailable Regan, Rayo Carcamo MD Unavailable Unavailable Regan, Rayo Carcamo MD Unavailable Unavailable Regan, Rayo Carcamo MD Unavailable Unavailable Regan, Rayo Carcamo MD Unavailable Unavailable Regan, Rayo Carcamo MD Unavailable Unavailable Regan, Rayo Carcamo MD Unavailable Unavailable Regan, Rayo Carcamo MD Unavailable Unavailable Regan, Rayo Carcamo MD Unavailable Unavailable Regan, Rayo Carcamo MD Unavailable Unavailable Regan, Rayo Carcamo MD Unavailable Unavailable Regan, Rayo Carcamo MD Unavailable Unavailable ReganRayo MD Unavailable Unavailable Rayo Regan MD Unavailable Unavailable Rayo Regan MD Unavailable Unavailable Rayo Regan MD Unavailable Unavailable Rayo Regan MD Unavailable Unavailable Raoy Regan MD Unavailable Unavailable ReganRayo MD Unavailable Unavailable Rayo Regan MD Unavailable Unavailable ReganRayo MD Unavailable Unavailable Rayo Regan MD Unavailable Unavailable Rayo Regan MD Unavailable Unavailable Rayo Regan MD Unavailable Unavailable Rayo Regan MD Unavailable Unavailable Rayo Regan MD Unavailable Unavailable ReganRayo MD Unavailable Unavailable ReganRayo MD Unavailable Unavailable Rayo Regan MD Unavailable Unavailable Rayo Regan MD Unavailable Unavailable Rayo Regan MD Unavailable Unavailable Rayo Regan MD Unavailable Unavailable Rayo Regan MD Unavailable Unavailable Rayo Regan MD Unavailable Unavailable Rayo Regan MD Unavailable Unavailable Ryao Regan MD Unavailable Unavailable Rayo Regan MD Unavailable Unavailable Rayo Regan MD Unavailable Unavailable Rayo Regan MD Unavailable Unavailable Rayo Regan MD Unavailable Unavailable Rayo Regan MD Unavailable Unavailable Rayo Regan MD Unavailable Unavailable ReganRayo MD Unavailable Unavailable Rayo Regan MD Unavailable Unavailable ReganRayo MD Unavailable Unavailable ReganRayo MD Unavailable Unavailable Regan, Rayo Carcamo MD Unavailable Unavailable Regan, Rayo Carcamo MD Unavailable Unavailable Regan, Rayo Carcamo MD Unavailable Unavailable Jorge RUVALCABA, Twin RUVALCABA Unavailable [phone] Twin Patel MD, MD Unavailable [phone] Twin Patel MD, MD Unavailable [phone] Jorge RUVALCABA, Twin RUVALCABA Unavailable [phone] Jorge RUVALCABA, Twin RUVALCABA Unavailable [phone] Jorge RUVALCABA, Twin RUVALCABA Unavailable [phone] Jorge RUVALCABA, Twin RUVALCABA Unavailable [phone] Jorge RUVALCABA, Twin RUVALCABA Unavailable [phone] Jorge RUVALCABA, Twin RUVALCABA Unavailable [phone] Jorge RUVALCABA, Twin RUVALCABA Unavailable [phone] Jorge RUVALCABA, Twin RUVALCABA Unavailable [phone] Jorge RUVALCABA, Twin RUVALCABA Unavailable [phone] Jorge RUVALCABA, Twin RUVALCABA Unavailable [phone] Jorge RUVALCABA, Twin RUVALCABA Unavailable [phone] Jorge RUVALCABA, Twin RUVALCABA Unavailable [phone] Jorge RUVALCABA, Twin RUVALCABA Unavailable [phone] Jorge RUVALCABA, Twin RUVALCABA Unavailable [phone] Jorge RUVALCABA, Twin RUVALCABA Unavailable [phone] Jorge RUVALCABA, Twin RUVALCABA Unavailable [phone] Jorge RUVALCABA, Twin RUVALCABA Unavailable [phone] O'will, A Alicia PA Unavailable Unavailable 'will, A Alicia PA Unavailable Unavailable , A Alicia PA Unavailable Unavailable , A Alicia PA Unavailable Unavailable , A Alicia PA Unavailable Unavailable an, A Alicia PA Unavailable Unavailable 'will, A Alicia PA Unavailable Unavailable 'will, A Alicia PA Unavailable Unavailable 'will, A Alicia PA Unavailable Unavailable ', A Alicia PA Unavailable Unavailable an, A Alicia PA Unavailable Unavailable 'will, A Alicia PA Unavailable Unavailable 'will, A Alicia PA Unavailable Unavailable 'will, A Alicia PA Unavailable Unavailable 'will, A Alicia PA Unavailable Unavailable 'will, A Alicia PA Unavailable Unavailable O'will, A Alicia PA Unavailable Unavailable O'will, A Alicia PA Unavailable Unavailable O'will, A Alicia PA Unavailable Unavailable O'will, A Alicia PA Unavailable Unavailable O'will, A Alicia PA Unavailable Unavailable O'will, A Alicia PA Unavailable Unavailable O'will, A Alicia PA Unavailable Unavailable O'will, A Alicia PA Unavailable Unavailable O'will, A Alicia PA Unavailable Unavailable O'will, A Alicia PA Unavailable Unavailable O'will, A Alicia PA Unavailable Unavailable O'will, A Alicia PA Unavailable Unavailable O'will, A Alicia PA Unavailable Unavailable O'will, A Alicia PA Unavailable Unavailable O'will, A Alicia PA Unavailable Unavailable O'will, A Alicia PA Unavailable Unavailable EARL, M STANLEY PA Unavailable Unavailable EARL, M STANLEY PA Unavailable Unavailable EARL, M STANLEY PA Unavailable Unavailable EARL, M STANLEY PA Unavailable Unavailable EARL, M STANLEY PA Unavailable Unavailable EARL, M STANLEY PA Unavailable Unavailable EARL, M STANLEY PA Unavailable Unavailable EARL, M STANLEY PA Unavailable Unavailable EARL, M STANLEY PA Unavailable Unavailable EARL, M STANLEY PA Unavailable Unavailable EARL, M STANLEY PA Unavailable Unavailable EARL, M STANLEY PA Unavailable Unavailable EARL, M STANLEY PA Unavailable Unavailable EARL, M STANLEY PA Unavailable Unavailable EARL, M STANLEY PA Unavailable Unavailable EARL, M STANLEY PA Unavailable Unavailable EARL, M STANLEY PA Unavailable Unavailable EARL, M STANLEY PA Unavailable Unavailable EARL, M STANLEY PA Unavailable Unavailable EARL, M STANLEY PA Unavailable Unavailable EARL, M STANLEY PA Unavailable Unavailable EARL, M STANLEY PA Unavailable Unavailable EARL, M STANLEY PA Unavailable Unavailable EARL, M STANLEY PA Unavailable Unavailable Asiya Traore MD Unavailable Unavailable Asiya Traore MD Unavailable Unavailable Asiya Traore MD Unavailable Unavailable Asiya Traore MD Unavailable Unavailable Asiya Traore MD Unavailable Unavailable Asiya Traore MD Unavailable Unavailable Asiya Traore MD Unavailable Unavailable Asiya Traore MD Unavailable Unavailable Asiya Traore MD Unavailable Unavailable Asiya Traore MD Unavailable Unavailable Asiya Traore MD Unavailable Unavailable Asiya Traore MD Unavailable Unavailable Asiya Traore MD Unavailable Unavailable Asiya Traore MD Unavailable Unavailable Asiya Traore MD Unavailable Unavailable Asiya Traore MD Unavailable Unavailable Asiya Traore MD Unavailable Unavailable Asiay Traore MD Unavailable Unavailable Asiya Traore MD Unavailable Unavailable SleAsiya christopher MD Unavailable Unavailable Asiya Traore MD Unavailable Unavailable Asiya Traore MD Unavailable Unavailable Asiya Traore MD Unavailable Unavailable Asiya Traore MD Unavailable Unavailable Asiya Traore MD Unavailable Unavailable Asiya Traore MD Unavailable Unavailable Asiya Traore MD Unavailable Unavailable Asiya Traore MD Unavailable Unavailable Asiya Traore MD Unavailable Unavailable Asiya Traore MD Unavailable Unavailable Asiya Traore MD Unavailable Unavailable Asiya Traore MD Unavailable Unavailable Asiya Traore MD Unavailable Unavailable Asiya Traore MD Unavailable Unavailable Asiya Traore MD Unavailable Unavailable Asiya Traore MD Unavailable Unavailable Asiya Traore MD Unavailable Unavailable Asiya Traore MD Unavailable Unavailable Asiya Traore MD Unavailable Unavailable Asiya Traore MD Unavailable Unavailable Asiya Traore MD Unavailable Unavailable Asiya Traore MD Unavailable Unavailable Asiya Traore MD Unavailable Unavailable Asiya Traore MD Unavailable Unavailable Asiya Traore MD Unavailable Unavailable Asiya Traore MD Unavailable Unavailable Asiya Traore MD Unavailable Unavailable Asiya Traore MD Unavailable Unavailable Asiya Traore MD Unavailable Unavailable Asiya Traore MD Unavailable Unavailable Asiya Traore MD Unavailable Unavailable Asiya Traore MD Unavailable Unavailable Asiya Traore MD Unavailable Unavailable Asiya Traore MD Unavailable Unavailable Asiya Traore MD Unavailable Unavailable Asiya Traore MD Unavailable Unavailable Asiya Traore MD Unavailable Unavailable Millie FELDMAN MD Unavailable Unavailable Millie FELDMAN MD Unavailable Unavailable Millie FELDMAN MD Unavailable Unavailable Millie FELMDAN MD Unavailable Unavailable Millie FELDMAN MD Unavailable Unavailable Millie FELDMAN MD Unavailable Unavailable Millie FELDMAN MD Unavailable Unavailable Millie FELDMAN MD Unavailable Unavailable Millie FELDMAN MD Unavailable Unavailable Millie FELDMAN MD Unavailable Unavailable Millie FELDMAN MD Unavailable Unavailable Millie FELDMAN MD Unavailable Unavailable Millie FELDMAN MD Unavailable Unavailable Millie FELDMAN MD Unavailable Unavailable Millie FELDMAN MD Unavailable Unavailable Millie FELDMAN MD Unavailable Unavailable Millie FELDMAN MD Unavailable Unavailable Millie FELDMAN MD Unavailable Unavailable Millie FELDMAN MD Unavailable Unavailable Millie FELDMAN MD Unavailable Unavailable Millie FELDMAN MD Unavailable Unavailable Millie FELDMAN MD Unavailable Unavailable Millie FELDMAN MD Unavailable Unavailable Millie FELDMAN MD Unavailable Unavailable Millie FELDMAN MD Unavailable Unavailable Millie FELDMAN MD Unavailable Unavailable Millie FELDMAN MD Unavailable Unavailable Millie FELDMAN MD Unavailable Unavailable Millie FELDMAN MD Unavailable Unavailable Millie FELDMAN MD Unavailable Unavailable Millie FELDMAN MD Unavailable Unavailable Millie FELDMAN MD Unavailable Unavailable Millie FELDMAN MD Unavailable Unavailable Millie FELDMAN MD Unavailable Unavailable Millie FELDMAN MD Unavailable Unavailable Millie FELDMAN MD Unavailable Unavailable Millie FELDMAN MD Unavailable Unavailable Millie FELDMAN MD Unavailable Unavailable Millie FELDMAN MD Unavailable Unavailable Millie FELDMAN MD Unavailable Unavailable Millie FELDMAN MD Unavailable Unavailable Millie FELDMAN MD Unavailable Unavailable Millie FELDMAN MD Unavailable Unavailable Millie FELDMAN MD Unavailable Unavailable Millie FELDMAN MD Unavailable Unavailable Millie FELDMAN MD Unavailable Unavailable Millie FELDMAN MD Unavailable Unavailable Millie FELDMAN MD Unavailable Unavailable Millie FELDMAN MD Unavailable Unavailable Millie FELDMAN MD Unavailable Unavailable Millie FELDMAN MD Unavailable Unavailable Millie FELDMAN MD Unavailable Unavailable Millie FELDMAN MD Unavailable Unavailable Millie FELDMAN MD Unavailable Unavailable Millie FELDMAN MD Unavailable Unavailable Millie FELDMAN MD Unavailable Unavailable Millie FELDMAN MD Unavailable Unavailable Millie FELDMAN MD Unavailable Unavailable Millie FELDMAN MD Unavailable Unavailable Millie FELDMAN MD Unavailable Unavailable Millie FELDMAN MD Unavailable Unavailable Millie FELDMAN MD Unavailable Unavailable Millie FELDMAN MD Unavailable Unavailable Millie FELDMAN MD Unavailable Unavailable Millie FELDMAN MD Unavailable Unavailable Millie FELDMAN MD Unavailable Unavailable Millie FELDMAN MD Unavailable Unavailable Millie FELDMAN MD Unavailable Unavailable Millie FELDMAN MD Unavailable Unavailable FELDMANMillie Colon MD Unavailable Unavailable FELDMANMillie Colon MD Unavailable Unavailable FELDMANMillie MD Unavailable Unavailable FELDMANMillie MD Unavailable Unavailable FELDMANMillie MD Unavailable Unavailable FELDMANMillie MD Unavailable Unavailable FELDMANMillie MD Unavailable Unavailable FELDMAN, Millie ESQUEDA MD Unavailable Unavailable FELDMANMillie Colon MD Unavailable Unavailable FELDMANMillie Colon MD Unavailable Unavailable FELDMANMillie Colon MD Unavailable Unavailable FELDMANMillie MD Unavailable Unavailable FELDMANMillie MD Unavailable Unavailable FELDMAN, Millie ESQUEDA MD Unavailable Unavailable FELDMAN, Millie ESQUEDA MD Unavailable Unavailable FELDMAN, Millie ESQUEDA MD Unavailable Unavailable FELDMANMillie MD Unavailable Unavailable FELDMANMillie MD Unavailable Unavailable FELDMAN, Millie ESQUEDA MD Unavailable Unavailable FELDMAN, Millie ESQUEDA MD Unavailable Unavailable FELDMAN, Millie ESQUEDA MD Unavailable Unavailable FELDMAN, Millie ESQUEDA MD Unavailable Unavailable FELDMAN, Millie ESQUEDA MD Unavailable Unavailable FELDMAN, Millie ESQUEDA MD Unavailable Unavailable FELDMANMillie MD Unavailable Unavailable FELDMANMillie MD Unavailable Unavailable FELDMANMillie MD Unavailable Unavailable FELDMANMillie MD Unavailable Unavailable Manuel, Twin PA Unavailable Unavailable Manuel, Twin PA Unavailable Unavailable Manuel, Twin PA Unavailable Unavailable Manuel, Twin PA Unavailable Unavailable Manuel, Twin PA Unavailable Unavailable Manuel, Twin PA Unavailable Unavailable Manuel, Twin PA Unavailable Unavailable Manuel, Twin PA Unavailable Unavailable Manuel, Twin PA Unavailable Unavailable Manuel, Twin PA Unavailable Unavailable Manuel, Twin PA Unavailable Unavailable Manuel, Twin PA Unavailable Unavailable Manuel, Twin PA Unavailable Unavailable Manuel, Twin PA Unavailable Unavailable Manuel, Twin PA Unavailable Unavailable Manuel, Twin PA Unavailable Unavailable Manuel, Twin PA Unavailable Unavailable Manuel, Twin PA Unavailable Unavailable Manuel, Twin PA Unavailable Unavailable Manuel, Twin PA Unavailable Unavailable Manuel, Twin PA Unavailable Unavailable Manuel, Twin PA Unavailable Unavailable Manuel, Twin PA Unavailable Unavailable Manuel, Twin PA Unavailable Unavailable Manuel, Twin PA Unavailable Unavailable Manuel, Twin PA Unavailable Unavailable Manuel, Twin PA Unavailable Unavailable Manuel, Twin PA Unavailable Unavailable Manuel, Twin PA Unavailable Unavailable Manuel, Twin PA Unavailable Unavailable Manuel, Twin PA Unavailable Unavailable Manuel, Twin PA Unavailable Unavailable Manuel, Twin PA Unavailable Unavailable Manuel, Twin PA Unavailable Unavailable Manuel, Twin PA Unavailable Unavailable Manuel, Twin PA Unavailable Unavailable Manuel, Twin PA Unavailable Unavailable Manuel, Twin PA Unavailable Unavailable Manuel, Twin PA Unavailable Unavailable Manuel, Twin PA Unavailable Unavailable Manuel, Twin PA Unavailable Unavailable Manuel, Twin PA Unavailable Unavailable Manuel, Twin PA Unavailable Unavailable Manuel, Twin PA Unavailable Unavailable Manuel, Twin PA Unavailable Unavailable Manuel, Twin PA Unavailable Unavailable Manuel, Twin PA Unavailable Unavailable Manuel, Twin PA Unavailable Unavailable Sg, K Georgina PA Unavailable Unavailable Sg, K Georgina PA Unavailable Unavailable Sg, K Georgina PA Unavailable Unavailable Sg, K Georgina PA Unavailable Unavailable Sg, K Georgina PA Unavailable Unavailable Sg, K Georgina PA Unavailable Unavailable Sg, K Georgina PA Unavailable Unavailable Sg, K Georgina PA Unavailable Unavailable Sg, K Georgina PA Unavailable Unavailable Sg, K Georgina PA Unavailable Unavailable Sg, K Georgina PA Unavailable Unavailable Sg, K Georgina PA Unavailable Unavailable Sg, K Georgina PA Unavailable Unavailable Sg, K Georgina PA Unavailable Unavailable Gs, K Georgina PA Unavailable Unavailable HICKEY, ISRAEL Unavailable Unavailable POLO-RAHUL, CRISTÓBAL DO Unavailable Unavailable POLO-RAHUL, CRISTÓBAL DO Unavailable Unavailable POLO-RAHUL, CRISTÓBAL DO Unavailable Unavailable POLO-RAHUL, CRISTÓBAL DO Unavailable Unavailable POLO-RAHUL, CRISTÓBAL DO Unavailable Unavailable POLO-RAHUL, CRISTÓBAL DO Unavailable Unavailable POLO-RAHUL, CRISTÓBAL DO Unavailable Unavailable POLO-RAHUL, CRISTÓBAL DO Unavailable Unavailable POLO-RAHUL, CRISTÓBAL DO Unavailable Unavailable POLO-RAHUL, CRISTÓBAL DO Unavailable Unavailable POLO-RAHUL, CRISTÓBAL DO Unavailable Unavailable POLO-RAHUL, CRISTÓBAL DO Unavailable Unavailable POLO-RAHUL, CRISTÓBAL DO Unavailable Unavailable POLO-RAHUL, CRISTÓBAL DO Unavailable Unavailable POLO-RAHUL, CRISTÓBAL DO Unavailable Unavailable POLO-RAHUL, CRISTÓBAL DO Unavailable Unavailable POLO-RAHUL, CRISTÓBAL DO Unavailable Unavailable POLO-RAHUL, CRISTÓBAL DO Unavailable Unavailable POLO-RAHUL, CRISTÓBAL DO Unavailable Unavailable POLO-RAHUL, CRISTÓBAL DO Unavailable Unavailable POLO-RAHUL, CRISTÓBAL DO Unavailable Unavailable POLO-RAHUL, CRISTÓBAL DO Unavailable Unavailable POLO-RAHUL, CRISTÓBAL DO Unavailable Unavailable POLO-RAHUL, CRISTÓBAL DO Unavailable Unavailable POLO-RAHUL, CRISTÓBAL DO Unavailable Unavailable POLO-RAHUL, CRISTÓBAL DO Unavailable Unavailable POLO-RAHUL, CRISTÓBAL DO Unavailable Unavailable POLO-RAHUL, CRISTÓBAL DO Unavailable Unavailable POLO-RAHUL, CRISTÓBAL DO Unavailable Unavailable POLO-RAHUL, CRISTÓBAL DO Unavailable Unavailable POLO-RAHUL, CRISTÓBAL DO Unavailable Unavailable POLO-RAHUL, CRISTÓBAL DO Unavailable Unavailable POLO-RAHUL, CRISTÓBAL DO Unavailable Unavailable POLO-RAHUL, CRISTÓBAL DO Unavailable Unavailable POLO-RAHUL, CRISTÓBAL DO Unavailable Unavailable POLO-RAHUL, CRISTÓBAL DO Unavailable Unavailable POLO-RAHUL, CRISTÓBAL DO Unavailable Unavailable POLO-RAHUL, CRISTÓBAL DO Unavailable Unavailable POLO-RAHUL, CRISTÓBAL DO Unavailable Unavailable POLO-RAHUL, CRISTÓBAL DO Unavailable Unavailable POLO-RAHUL, CRISTÓBAL DO Unavailable Unavailable POLO-RAHUL, CRISTÓBAL DO Unavailable Unavailable POLO-RAHUL, CRISTÓBAL DO Unavailable Unavailable POLO-RAHUL, CRISTÓBAL DO Unavailable Unavailable OPLO-RAHUL, CRISTÓBAL DO Unavailable Unavailable POLO-RAHUL, CRISTÓBAL DO Unavailable Unavailable POLO-RAHUL, CRISTÓBAL DO Unavailable Unavailable POLO-RAHUL, CRISTÓBAL DO Unavailable Unavailable POLO-RAHUL, CRISTÓBAL DO Unavailable Unavailable POLO-RAHUL, CRISTÓBAL DO Unavailable Unavailable POLO-RAHUL, CRISTÓBAL DO Unavailable Unavailable POLO-RAHUL, CRISTÓBAL DO Unavailable Unavailable POLO-RAHUL, CRISTÓBAL DO Unavailable Unavailable POLO-RAHUL, CRISTÓBAL DO Unavailable Unavailable POLO-RAHUL, CRISTÓBAL DO Unavailable Unavailable POLO-RAHUL, CRISTÓBAL DO Unavailable Unavailable POLO-RAHUL, CRISTÓBAL DO Unavailable Unavailable POLO-RAHUL, CRISTÓBAL DO Unavailable Unavailable POLO-RAHUL, CRISTÓBAL DO Unavailable Unavailable POLO-RAHUL, CRISTÓBAL DO Unavailable Unavailable POLO-RAHUL, CRISTÓBAL DO Unavailable Unavailable POLO-RAHUL, CRISTÓBAL DO Unavailable Unavailable POLO-RAHUL, CRISTÓBAL DO Unavailable Unavailable POLO-RAHUL, CRISTÓBAL DO Unavailable Unavailable POLO-RAHUL, CRISTÓBAL DO Unavailable Unavailable POLO-RAHUL, CRISTÓBAL DO Unavailable Unavailable POLO-RAHUL, CRISTÓBAL DO Unavailable Unavailable POLO-RAHUL, CRISTÓBAL DO Unavailable Unavailable POLO-RAHUL, CRISTÓBAL DO Unavailable Unavailable POLO-RAHUL, CRISTÓBAL DO Unavailable Unavailable POLO-RAHUL, CRISTÓBAL DO Unavailable Unavailable POLO-RAHUL, CRISTÓBAL DO Unavailable Unavailable POLO-RAHUL, CRISTÓBAL DO Unavailable Unavailable POLO-RAHUL, CRISTÓBAL DO Unavailable Unavailable POLO-RAHUL, CRISTÓBAL DO Unavailable Unavailable POLO-RAHUL, CRISTÓBAL DO Unavailable Unavailable POLO-RAHUL, CRISTÓBAL DO Unavailable Unavailable POLO-RAHUL, CRISTÓBAL DO Unavailable Unavailable POLO-RAHUL, CRISTÓBAL DO Unavailable Unavailable POLO-RAHUL, CRISTÓBAL DO Unavailable Unavailable POLO-RAHUL, CRISTÓBAL DO Unavailable Unavailable Amada Patel MD Unavailable Unavailable AmandaAmada rao MD Unavailable Unavailable AmandaAmada rao MD Unavailable Unavailable AmandaAmada rao MD Unavailable Unavailable AmandaAmada rao MD Unavailable Unavailable AmandaAmada rao MD Unavailable Unavailable Amada Patel MD Unavailable Unavailable Amada Patel MD Unavailable Unavailable AmandaAmada rao MD Unavailable Unavailable Amada Patel MD Unavailable Unavailable AmandaAmada rao MD Unavailable Unavailable AmandaAmada rao MD Unavailable Unavailable AmandaAmada rao MD Unavailable Unavailable AmandaAmada rao MD Unavailable Unavailable AmandaAmada rao MD Unavailable Unavailable AmandaAmada rao MD Unavailable Unavailable AmandaAmada rao MD Unavailable Unavailable AmandaAmada rao MD Unavailable Unavailable AmadnaAmada rao MD Unavailable Unavailable AmandaAmada rao MD Unavailable Unavailable AmandaAmada rao MD Unavailable Unavailable AmnadaAmada rao MD Unavailable Unavailable AmandaAmada rao MD Unavailable Unavailable AmandaAmada rao MD Unavailable Unavailable AmandaAmada rao MD Unavailable Unavailable AmandaAmada rao MD Unavailable Unavailable AmandaAmada rao MD Unavailable Unavailable AmandaAmada rao MD Unavailable Unavailable AmandaAmada rao MD Unavailable Unavailable AmandaAmada rao MD Unavailable Unavailable AmandaAmada rao MD Unavailable Unavailable AmandaAmada MD Unavailable Unavailable AmandaAmada MD Unavailable Unavailable AmandaAmada MD Unavailable Unavailable AmandaAmada MD Unavailable Unavailable Amanda, Amada Chavez MD Unavailable Unavailable Amanda, Amada Chavez MD Unavailable Unavailable Amanda, Amada Chavez MD Unavailable Unavailable AmandaAmada MD Unavailable Unavailable AmandaAmada MD Unavailable Unavailable AmandaAmada MD Unavailable Unavailable AmandaAmada MD Unavailable Unavailable Amanda, Amada Chavez MD Unavailable Unavailable AmadnaAmada MD Unavailable Unavailable AmandaAmada MD Unavailable Unavailable AmandaAmada MD Unavailable Unavailable AmandaAmada MD Unavailable Unavailable AmandaAmada MD Unavailable Unavailable Amanda, Amada Chavez MD Unavailable Unavailable Amanda, Amada Chavez MD Unavailable Unavailable AmandaAmada MD Unavailable Unavailable AmandaAmada MD Unavailable Unavailable AmandaAmada MD Unavailable Unavailable AmandaAmada MD Unavailable Unavailable AmandaAmada MD Unavailable Unavailable AmandaAmada MD Unavailable Unavailable AmandaAmada MD Unavailable Unavailable AmandaAmada MD Unavailable Unavailable AmandaAmada MD Unavailable Unavailable AmandaAmada MD Unavailable Unavailable AmandaAmada MD Unavailable Unavailable AmandaAmada MD Unavailable Unavailable AmandaAmada MD Unavailable Unavailable AmandaAmada MD Unavailable Unavailable AmandaAmada MD Unavailable Unavailable AmandaAmada MD Unavailable Unavailable AmandaAmada MD Unavailable Unavailable AmandaAmada MD Unavailable Unavailable AmandaAmada MD Unavailable Unavailable AmandaAmada MD Unavailable Unavailable Ana Rosa, L Yissel BREAKER ENGINEER Unavailable Unavailable Ana Rosa, L Yissel BREAKER ENGINEER Unavailable Unavailable Ana Rosa, L Yissel BREAKER ENGINEER Unavailable Unavailable Ana Rosa, L Yissel BREAKER ENGINEER Unavailable Unavailable Ana Rosa, L Yissel BREAKER ENGINEER Unavailable Unavailable Ana Rosa, L Yissel BREAKER ENGINEER Unavailable Unavailable Ana Rosa, L Yissel BREAKER ENGINEER Unavailable Unavailable Ana Rosa, L Yissel BREAKER ENGINEER Unavailable Unavailable Ana Rosa, L Yissel BREAKER ENGINEER Unavailable Unavailable Ana Rosa, L Yissel BREAKER ENGINEER Unavailable Unavailable Ana Rosa, L Yissel BREAKER ENGINEER Unavailable Unavailable Ana Rosa, L Yissel BREAKER ENGINEER Unavailable Unavailable Ana Rosa, L Yissel BREAKER ENGINEER Unavailable Unavailable Ana Rosa, L Yissel BREAKER ENGINEER Unavailable Unavailable Ana Rosa, L Yissel BREAKER ENGINEER Unavailable Unavailable Ana Rosa, L Yissel BREAKER ENGINEER Unavailable Unavailable Ana Rosa, L Yissel BREAKER ENGINEER Unavailable Unavailable Ana Rosa, L Yissel BREAKER ENGINEER Unavailable Unavailable Ana Rosa, L Yissel BREAKER ENGINEER Unavailable Unavailable Ana Rosa, L Yissel BREAKER ENGINEER Unavailable Unavailable Ana Rosa, L Yissel BREAKER ENGINEER Unavailable Unavailable Ana Rosa, L Yissel BREAKER ENGINEER Unavailable Unavailable Re-disclosure Warning The records that you are about to access may contain information from federally-assisted alcohol or drug abuse programs. If such information is present, then the following federally mandated warning applies: This information has been disclosed to you from records protected by federal confidentiality rules (42 CFR part 2). The federal rules prohibit you from making any further disclosure of this information unless further disclosure is expressly permitted by the written consent of the person to whom it pertains or as otherwise permitted by 42 CFR part 2. A general authorization for the release of medical or other information is NOT sufficient for this purpose. The Federal rules restrict any use of the information to criminally investigate or prosecute any alcohol or drug abuse patient.The records that you are about to access may contain highly sensitive health information, the redisclosure of which is protected by Article 27-F of the [facility] Public Health law. If you continue you may have access to information: Regarding HIV / AIDS; Provided by facilities licensed or operated by the [facility] Office of Mental Health; or Provided by the [facility] Office for People With Developmental Disabilities. If such information is present, then the following [facility] mandated warning applies: This information has been disclosed to you from confidential records which are protected by state law. State law prohibits you from making any further disclosure of this information without the specific written consent of the person to whom it pertains, or as otherwise permitted by law. Any unauthorized further disclosure in violation of state law may result in a fine or nursing home sentence or both. A general authorization for the release of medical or other information is NOT sufficient authorization for further disc losure. Allergies and Adverse Reactions Type Description Substance Reaction Status Data Source(s ) Drug Allergy NKDA NKDA [facility] ([facility]) Drug Allergy Drug Allergy NKDA [facility] ([facility]) Family History Family Member Name Family Member Gender Family Member Status Date o f Status Description Data Source(s) Unknown Unknown Problem [facility] ([facility], ) Encounters Encounter Providers Location Date Indications Data Source(s ) Outpatient Attender: Kathy Patel MD 03/13/2021 12:00:00 AM [facility] Attender: DHEERAJ FELDMAN MDReferrer: Carlos Alberto jorge MD 08/27/2020 08:21:01 PM EST [facility] Outpatient Attender: ISRAEL SINGH 08/27/2020 10:00:00 AM [facility] Office Visit Attender: Twin Falcon MD Physical Therapy 2019 12:00:00 PM EST [facility] ([facility]) Outpatient [facility] [id number] 08/20/2020 12:00:00 AM EST eCW1 (Critical access hospital) Outpatient Attender: Sandy RODRIGUEZ [email or web address] 0 12:00:00 AM EST - 08/03/2020 09:15:[address] [facility] Outpatient Attender: CRISTÓBAL WOOD DO [facility] 08/02/2020 10:00:00 AM EST [facility] ([facility]) Office Visit Attender: Twin Falcon MD Physical Therapy 2019 12:00:00 PM EST [facility] ([facility]) Office Visit Attender: ALICIA FRAGOSO Physical Therapy 07/12/2020 12:00:00 PM EST [facility] ([facility]) Outpatient Attender: Twin FRAGOSO Family Medicine [facility] 07/02/2020 01:00:00 PM EST [facility] (Family Medicine [facility]) Office Visit Attender: ALICIA FRAGOSO Physical Therapy 07/02/2020 09:45:00 AM EST [facility] ([facility]) Outpatient Attender: Twin Patel MDReferrer: Kathy Patel MD [id number] 06/20/2020 12:49:30 PM EDT [facility] Outpatient Attender: DARRELL MONTOYA WATND 06/20/2020 12:46:00 PM EDT [facility] Outpatient Attender: Twin Patel MDReferrer: Kathy Patel MD [id number] 06/20/2020 12:29:03 PM EDT [facility] Outpatient Attender: STANLEY FRAGOSO Physical Therapy 05/25 03:00:00 PM EDT MED[facility] ([facility]) Outpatient Attender: Yissel Harrell/Sam/Hunter/Reindl 06/13/2020 01:30:00 PM EDT [facility] ([facility] Outpatient Attender: Twin Patel MDReferrer: Kathy Patel MD _[id number] 06/12/2020 05:06:31 PM EDT [facility] Outpatient Attender: Twin Patel MDReferrer: Kathy Patel MD _[id number] 06/11/2020 01:16:44 PM EDT [facility] Outpatient Attender: Twin Patel MDReferrer: Kathy Patel MD _[id number] 06/11/2020 01:10:35 PM EDT [facility] Outpatient Attender: Twin Patel MDReferrer: Kathy Patel MD _[id number] 06/11/2020 11:34:35 AM EDT [facility] Outpatient Attender: Twin Patel MDReferrer: Kathy Patel MD _[id number] 06/11/2020 10:50:13 AM EDT [facility] Outpatient Attender: Twin Patel MDReferrer: Kathy Patel MD _[id number] 06/11/2020 10:18:36 AM EDT [facility] Outpatient Attender: Twin Patel MDReferrer: Kathy Patel MD _[id number] 06/11/2020 09:59:46 AM EDT [facility] Outpatient Attender: Twin Patel MDReferrer: Kathy Patel MD _[id number] 06/11/2020 09:53:30 AM EDT [facility] Outpatient Attender: DARRELL MONTOYA WATNDC 06/11/2020 08:39:00 AM EDT [facility] Outpatient Attender: Alicia FRAGOSO Family Medicine [facility] 06/07/2020 09:20:00 AM EDT [facility] ([facility] Medicine [facility]) Outpatient Attender: STANLEY FRAGOSO Physical Therapy 04/25 01:30:00 PM EDT [facility] ([facility]) Attender: DHEERAJ FELDMAN MDReferrer: Carlos Alberto jorge MD 05/10/2020 08:20:09 PM EDT [facility] Attender: DHEERAJ FELDMAN MDReferrer: Carlos Alberto jorge MD 05/10/2020 08:20:09 PM EDT [facility] Attender: DHEERAJ FELDMAN MDReferrer: Carlos Alberto jorge MD 05/10/2020 08:20:09 PM EDT [facility] Outpatient Attender: Twin FRAGOSO Family [facility] 05/01/2020 02:00:00 PM EDT [facility] ([facility]) Outpatient Attender: Twin Falcon MD Physical Therapy 04/11/2020 0 9:15:00 AM EDT [facility] ([facility]) Outpatient Attender: STANLEY FRAGOSO Physical Therapy 03/24 09:15:00 AM EDT [facility] ([facility]) Outpatient Attender: DARRELL QUINN 03/28/2020 02:34:02 PM EDT [facility] Outpatient Attender: Nicolle FRAGOSO [id number] 02/21 12:00:00 AM EDT - 03/09/2020 10:41:06 AM EDT Encounter for screening mammogram for ma lignant neoplasm of breast [facility] Encounter for screening mammogram for ma lignant neoplasm of breast Outpatient Attender: Twin Falcon MD Physical Therapy 02/03/2020 1 1:15:00 AM EDT [facility] ([facility]) Outpatient Attender: CRISTÓBAL WOOD DO [facility] 01/25/2020 09:00:00 AM EDT [facility] ([facility] Medicine [facility]) Outpatient Attender: DARRELL QUINN 01/11/2020 09:01:01 PM EDT [facility] Outpatient Attender: [facility] 01/11/2020 03:17:00 PM EDT [facility] Outpatient Attender: Twin FRAGOSO Family [facility] 12/09/2019 11:20:00 AM EDT [facility] (Family Medicine [facility]) Outpatient Attender: Yissel Oseguera NP Main Office 11/21/2019 01:00:00 PM EDT [facility] ([facility] Attender: DHEERAJ FELDMAN MDReferrer: Carlos Alberto jorge MD 11/03/2019 08:20:03 PM EDT [facility] Attender: DHEERAJ FELDMAN MDReferrer: Carlos Alberto jorge MD 11/02/2019 08:20:03 PM EDT [facility] Outpatient Attender: DARRELL [facility] 10/31/2019 08:35:00 AM EDT [facility] Outpatient Attender: Twin FRAGOSO Family [facility] 10/25/2019 09:20:00 AM EST [facility] ([facility]) [facility] [address] [place] [address] 10/11/2019 12:00:00 AM EST eCW1 ([facility]) Outpatient Attender: STANLEY FRAGOSO Physical Therapy 09/24 05:30:00 PM EST [facility] ([facility]) Outpatient Attender: [facility] 09/21/2019 03:20:00 PM [facility] Outpatient Attender: Georgina FRAGOSO 020 09:49:00 AM EST - 09/15/2019 10:48:00 AM EST [facility] Outpatient Attender: [facility] 09/13/2019 12:45:02 PM [facility] Outpatient Attender: [facility] 09/13/2019 08:58:00 AM [facility] Outpatient Attender: [facility] 09/13/2019 08:57:00 AM [facility] Outpatient Attender: [facility] 09/13/2019 07:53:01 AM [facility] Outpatient Attender: Yissel Oseguera BREAKER ENGINEER Main Office 09/05/2019 10:30:00 AM EST MED[facility] ([facility] Outpatient Referrer: Twin Falcon MD 08/29/2019 07:54:00 PM EST [facility]iology Imaging Outpatient Referrer: Twin Falcon MD 08/28/2019 05:00:00 PM EST [facility]iology Imaging Outpatient Attender: CRISTÓBAL WOOD DO [facility] 08/26/2019 10:00:00 AM EST MED[facility] ([facility] Medicine [facility]) Outpatient Attender: Asiya Traore MD [email or web address] 07/24 09:01:18 AM EST - 08/03/2019 09:40:46 AM EST Outpatient Attender: STANLEY FRAGOSO Physical Therapy 07/24 12:45:00 PM EST MEDENT ([facility]) [facility] [address] [place] [phone] 08/01/2019 12:00:00 AM EST eCW1 (Critical access hospital) Outpatient Attender: JIM FRAGOSO Physical Therapy 07/29/2019 1 0:15:00 AM EST MED[facility] ([facility]) [facility] [address] [place] [phone] 07/29/2019 12:00:00 AM EST eCW1 (Critical access hospital) Outpatient Attender: Twin FRAGOSO Family Medicine [facility] 07/28/2019 09:00:00 AM EST MED[facility] ([facility]) Outpatient Referrer: Twin Falcon MD 07/27/2019 08:42:00 PM EST [facility] Radiology Imaging [facility] [address] [place] [phone] 07/27/2019 12:00:00 AM EST eCW1 (Critical access hospital) [facility] [address] [place] [phone] 07/15/2019 12:00:00 AM EST eCW1 (Critical access hospital) Outpatient Attender: Kathy Patel MD [id number] 03/09/20 12:00:00 AM EDT - 03/09/2019 11:02:39 AM EDT Encounter for screening mammogram for ma lignant neoplasm of breast [facility] Encounter for screening mammogram for ma lignant neoplasm of breast Medications Medication Brand Name Start Date Product Form Dose Route Admi nistrative Instructions Pharmacy Instructions Status Indications Reaction Description Data Source(s) tramadol hydrochloride 50 MG Oral Tablet Tramadol HCL 08/23/2020 12:00:00 AM EST active MEDENT (No [facility] ) 24 HR Propranolol Hydrochloride 60 MG Ex tended Release Oral Capsule propranolol (INDERAL LA) 60 MG 24 hr capsule propranolol (INDERAL LA) 60 MG 24 hr capsule 08/03/2020 12:00:00 AM EST 60 mg Oral active Take 1 capsule (60 mg total) by mouth daily Acetaminophen 325 MG / Hydrocodone Bitartrate 5 MG Oral Tabl et [Rut[place]] [place] 07/18/2020 12:00:00 AM EST ORAL active MED[facility] ([facility]) apixaban 2.5 MG Oral Tablet [Eliquis] Eliquis 07/06/2020 12:00:00 AM EST active [facility] ([facility]) anastrozole 1 MG Oral Tablet Anastrozole 07/02/2020 12:00:00 AM EST ORAL active MED[facility] ([facility]) chlorhexidine gluconate 40 MG/ML Medicated Liquid Soap [Hibi clens] Hibiclens 06/22/2020 12:00:00 AM EDT active [facility] ([facility]) Mupirocin 0.02 MG/MG Topical Ointment [Bactroban] Bactroban 06/22/2020 12:00:00 AM EDT completed [facility] ([facility]) Mupirocin 20 MG/ML Topical Cream [Bactroban] Bactroban 06/07/2020 12:00:00 AM EDT completed [facility] ([facility]) Diazepam 2 MG Oral Tablet [Valium] Valium 05/23/2020 12:00:00 AM EDT ORAL completed MED[facility] ([facility]) Diclofenac Sodium 0.01 MG/MG Topical Gel Diclofenac Sodium 05/15/2020 12:00:00 AM EDT active [facility] ([facility]) Lactulose 667 MG/ML Oral Solution [Constulose] Constulose 04/22/2020 12:00:00 AM EDT active MED[facility] ([facility]) 24 HR Propranolol Hydrochloride 60 MG Ex tended Release Oral Capsule propranolol (INDERAL LA) 60 MG 24 hr capsule propranolol (INDERAL LA) 60 MG 24 hr capsule 02/27/2020 12:00:00 AM EDT 60 mg Oral aborted Take 1 capsule (60 mg total) by mouth daily Amoxicillin 875 MG Oral Tablet Amoxicillin 12/09/2019 12:00:00 AM EDT ORAL completed MED[facility] ([facility]) Clindamycin 10 MG/ML Topical Lotion Clindamycin Phosphate Cl indamycin Phosphate 09/15/2019 10:35:39 AM EST 1 APPLIC active [facility] Ketoconazole 20 MG/ML Medicated Shampoo Ketoconazole 09/15/19 20 10:35:31 AM EST 1 APPLIC active [facility] 24 HR tolterodine tartrate 4 MG Extended Release Oral Capsule Tolterodine Tolterodine 09/15/2019 10:07:19 AM EST 4 MG active [facility] montelukast 10 MG Oral Tablet Montelukast Montelukast 09/15/2019 10:06:11 AM EST 10 MG active [facility] 24 HR Propranolol Hydrochloride 60 MG Extended Release Oral Capsule Propranolol 09/15/2019 10:05:39 AM EST 60 MG active [facility] pantoprazole 40 MG Delayed Release Oral Tablet Pantoprazole Pantoprazole 09/15/2019 10:05:20 AM EST 40 MG active [facility] Glipizide 5 MG Oral Tablet Glipizide 09/15/2019 10:04:23 AM EST 5 MG active [facility] Furosemide 20 MG Oral Tablet Furosemide 09/15/2019 10:03:54 AM EST 20 MG active [facility] Diclofenac Sodium 0.01 MG/MG Topical Gel Diclofenac Sodium 09/15/2019 10:02:41 AM EST 2 GM active [facility] Calcium Carbonate 1250 MG Oral Tablet Calcium Carbonate 10:01:57 AM EST 500 MG active [facility] 24 HR Bupropion Hydrochloride 300 MG Extended Release Oral Tablet Bupropion Hcl Bupropion Hcl 09/15/2019 10:00:33 AM EST 300 MG active [facility] duloxetine 30 MG Delayed Release Oral Capsule Duloxetine HCL 08/26/2019 12:00:00 AM EST active [facility] ([facility]) gabapentin 400 MG Oral Capsule gabapentin (NEURONTIN) 400 MG capsule gabapentin (NEURONTIN) 400 MG capsule 08/02/2019 12:00:00 AM EST 400 mg Oral aborted Take 400 mg by mouth 3 (three) times a d ay gabapentin 400 MG Oral Capsule Gabapentin 08/02/2019 12:00:00 AM EST ORAL active [facility] ([facility]) Diclofenac Sodium 0.01 MG/MG Topical Gel Diclofenac So dium 1 % GEL Diclofenac Sodium 1 % GEL 07/29/2019 12:00:00 AM EST active 24 HR Metformin hydrochloride 500 MG Extended Release Oral Tablet Metformin HCL ER 07/28/2019 12:00:00 AM EST ORAL active [facility] ([facility]) Ranitidine 150 MG Oral Tablet ranitidine (ZANTAC) 150 MG tablet ranitidine (ZANTAC) 150 MG tablet 07/24/2019 12:00:00 AM EST aborted Triamcinolone Acetonide 0.001 MG/MG Topi sanjuanita Ointment triamcinolone (KENALOG) 0.1 % ointment triamcinolone (KENALOG) 0.1 % ointment 07/16/2019 12:00:00 AM ES T active APPLY OINT MENT TOPICALLY TO AFFECTED AREAS OF LEGS DAILY NEEDED FOR 2 WEEKS MAX Clindamycin 10 MG/ML Topical Lotion Clindamycin Phosphate Cl indamycin Phosphate 06/15/2019 07:19:29 AM EDT 1 APPLIC completed [facility] gabapentin 300 MG Oral Capsule Gabapentin 06/02/2019 12:00:00 AM EDT ORAL completed [facility] ([facility] ) anastrozole 1 MG Oral Tablet Anastrozole 05/12/2019 12:00:00 AM EDT ORAL completed [facility] ([facility]) Ketoconazole 20 MG/ML Medicated Shampoo Ketoconazole 03/11/20 11:07:47 AM EDT 1 APPLIC completed [facility] Furosemide 20 MG Oral Tablet furosemide (LASIX) 20 MG tablet furosemide (LASIX) 20 MG tablet 08/05/2018 12:00:00 AM EST 20 mg Oral abort ed Take 20 mg by mouth daily Acetaminophen 325 MG Oral Tablet acetaminophen (TYLENO L) 325 MG tablet acetaminophen (TYLENOL) 325 MG tablet 2018 12:00:00 AM EDT 65 0 mg Oral aborted Take 2 tablets (650 mg total) by mouth every 6 (six) hours as needed for pain 24 HR tolterodine tartrate 4 MG Extended Release Oral Capsule tolterodine (DETROL LA) 4 MG 24 hr capsule tolterodine (DETROL LA) 4 MG 24 hr capsule 4 mg Oral aborted Take 4 mg by mouth daily Aspirin 81 MG Oral Tablet aspirin 81 MG tablet aspirin 81 MG tablet 81 mg Oral aborted Take 81 mg by mouth Insurance Providers Payer name Policy type / Coverage type Policy ID Covered alliance party ID Covered alliance party's relationship to [place] Policy [place] Plan Information [facility] COMMUNITY PLAN MCDO [id number] SP [id number] [facility] COMMUNITY PLAN MCDO [id number] SP [id number] [facility] COMMUNITY PLAN [facility] [id number] SP [id number] [facility] [id number] S [id number] [facility] COMMUNITY PLAN [id number] 0 [id number] [facility] COMMUNITY PLAN [id number] 0 [id number] MED[place]ID [place] [id number] [facility] [id number] [facility] MEDICAID [id number] [facility] MEDICAID [id number] [place] [id number] [facility](MCAID) O [id number] S [id number] [facility] Community Plan Primary [id number] Medicaid Secondary [id number] [facility] Essential Plan P [id number] S [id number] [facility] [id number] 0 [id number] [facility] U [id number] Self [id number] MEDICAID M [id number] Self [id number] Managed Care - [facility] Community Plan P [id number] S [id number] Medicaid S [id number] SELF PAY ONLY [id number] SP [id number] [facility](MCAID) O [id number] S [id number] [employer] COMMUNITY PLAN MCDHMO [id number] SP [id number] [employer] COMMUNITY PLAN MCDHMO [id number] SP [id number] [employer] COMMUNITY PLAN MCDHMO [id number] SP [id number] Managed Care - [facility] Community Plan P [id number] S [id number] [facility] COMMUNITY PLAN [id number] 0 [id number] [facility] Community Plan Commercial [id number] Self [id number] [facility] Community Plan Commercial [id number] Self [id number] [employer] U/W Commercial [id number] Self [id number] [facility] Community Plan Commercial [id number] Self [id number] Medicaid S UNAVAILABLE S UNAVAILA BLE Managed Care - Community Plan [facility] P UNAVAILABLE S UNAVAILABLE [facility] Community Plan Commercial [id number] Self [id number] [facility] Community Plan Commercial [id number] Self [id number] [employer] U/W Commercial [id number] Self [id number] BCBS Ppo Commercial [id number] Self [id number] [facility] Community Plan Commercial [id number] Self [id number] [place] Medig[place] Part B [id number] Self [id number] [facility] Community Plan Commercial [id number] Self [id number] [employer] BCBS Medigap Part B [id number] Self [id number] [employer] BCBS Medigap Part B [id number] Self [id number] [facility] (HMO) [id number] Self [id number] [facility] Community Plan Commercial [id number] Self [id number] [facility] Community Plan Commercial [id number] Self [id number] [employer] U/W Commercial [id number] Self [id number] [facility] Community Plan Commercial [id number] Self [id number] [facility] Community Plan Commercial [id number] Self [id number] [place] PPO 302/307 [id number] SP [id number] [facility] Community Plan Commercial [id number] Self [id number] [facility] Community Plan Commercial [id number] Self [id number] [employer] U/W Commercial [id number] Self [id number] [facility] Community Plan Commercial [id number] Self [id number] [employer] U/W Commercial [id number] Self [id number] [place] Medigap Part B [id number] Self [id number] [place] Medigap Part B [id number] Self [id number] [facility] [place] Commercial [id number] Self [id number] MVP (pr) Commercial [id number] Self [id number] [place] Medigap Part B [id number] Self [id number] [place]ig[place] [id number] Self [id number] [facility] Community Plan Commercial [id number] Self [id number] [facility] COMMUNITY PLAN [id number] MEDICAID -O/P [id number] [employer] U/W Commercial [id number] Self [id number] [employer] U/W Commercial [id number] Self [id number] [facility] [employer] (Epo,Hmo,Ppo) Commercial [id number] Self [id number] EXCELLUS H [id number] Self [id number] BCBS Ppo Commercial [id number] Self [id number] [employer] (Epo,Hmo,Ppo) Commercial [id number] Self [id number] [employer] BCBS B [id number] S YNI [id number] [employer] BCBS [id number] [place] YNI [id number] [place] Medigap Part B [id number] Self [id number] [place] Medigap Part B [id number] Self [id number] [place] Commercial [id number] Self [id number] BLUE CROSS BLUE SHIELD -O/P [id number] 18 [id number] [employer] BCBS PI PI [facility] U/W Commercial [id number] Self [id number] [facility] U/W Commercial [id number] Self [id number] [place] Medigap Part B [id number] Self [id number] [place] Medigap Part B [id number] Self [id number] [place] Commercial [id number] Self [id number] [place] Medigap Part B [id number] Self [id number] [place] Medigap Part B [id number] Self [id number] [place] Commercial [id number] Self [id number] [place] Medigap Part B [id number] Self [id number] [place] Medigap Part B [id number] Self [id number] [place] Commercial [id number] Self [id number] [employer] Exchange (Epo,Hmo,Ppo) Commercial [id number] Self [id number] BCBS Ppo Commercial [id number] Self [id number] [employer] (Epo,Hmo,Ppo) Commercial [id number] Self [id number] [place] Medigap Part B [id number] Self [id number] [place] Medigap Part B [id number] Self [id number] [place] Commercial [id number] Self [id number] [place] Medigap Part B [id number] Self [id number] [place] Medigap Part B [id number] Self [id number] [place] Commercial [id number] Self [id number] BS Exchange (Epo,Hmo,Ppo) Commercial [id number] Self [id number] [place] Medigap Part B [id number] Self [id number] [place] Medigap Part B Self [id number] [place] Commercial [id number] Self [id number] [place] Medigap Part B [id number] Self [id number] [place] Medigap Part B [id number] Self [id number] [place] Commercial [id number] Self [id number] [place] Medigap Part B [id number] Self [id number] [place] Medigap Part B [id number] Self [id number] [place] Commercial [id number] Self [id number] BS Exchange (Epo,Hmo,Ppo) Commercial [id number] Self [id number] BCBS [place] PPO 302/307 [id number] SP [id number] [facility] HMO/PPO/POS [id number] 0 [id number] [place] Medigap Part B [id number] Self [id number] [place] Medigap Part B [id number] Self [id number] [place] Commercial [id number] Self [id number] BCBS Ppo Commercial [id number] Self [id number] MVP (pr) Commercial Self [place] Medigap Part B Self [place] Medigap Part B Self [place] Medigap Part B Self [place] Commercial Epo Self Epo BS Exchange (Epo,Hmo,Ppo) Commercial Self [place] Medigap Part B Self [place] Medigap Part B Self BCBS [place] PPO 302/307 [id number] SP [id number] BLUE CROSS BLUE SHIELD-O/P [id number] 18 [id number] EX[employer]LLUS BCBS B [id number] P [id number] BCBS [place] PPO 302/307 [id number] SP [id number] Self Pay S [id number] S [id number] Sliding Fee Scale P [id number] S [id number] Self Pay P none S none BCBS [place] PPO 302/307 [id number] SP [id number] PROGRESSIVE CO NO FAULT [id number] SP [id number] SELF PAY UNAVAILABLE SP UNAVAILA BLE BCBS [place] 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 MAJOR DEPRESSV DISORDER, RECURRENT SEVERE W/O PSYCH FEATURES Diagnosis 08/27/2020 10:00:00 AM [facility] R07.9 Chest pain, unspecified Chest pain, unspecified Diagno sis 08/03/2020 08:32:29 AM [facility] E78.5 Hyperlipidemia, unspecified Hyperlipidemia, unspecifie d Diagnosis 08/03/2020 08:32:29 AM [facility] I10 Essential (primary) hypertension Essential (primary) h ypertension Diagnosis 08/03/2020 08:32:29 AM [facility] Z98.84 Bariatric surgery status Bariatric surgery status Diag nosis 08/03/2020 08:32:29 AM [facility] Z79.4 intermediate designer (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) use of insulin intermediate designer (cu rrent) use of insulin Diagnosis 08/03/2020 08:32:29 AM [facility] E11.9 Type 2 diabetes mellitus without complic ations Type 2 diabetes mellitus without complic Diagnosis 08/03/2020 08:32:29 AM EST E66.01 Morbid (severe) obesity due to excess ca lories Morbid (severe) obesity due to excess ca Diagnosis 08/03/2020 08:32:29 AM EST K74.69 Other cirrhosis of liver Other cirrhosis of liver Diag nosis 08/03/2020 08:32:29 AM EST Z98.890 Other specified postprocedural states Ot her specified postprocedural states Diagnosis 03/09/2020 09:58:56 AM [facility] Z12.31 Encounter for screening mammogram for ma lignant neoplasm of breast Encounter for screening mammogram for malignant neoplasm of breast Diagnosis 03/09/2020 09:58:56 AM [facility] R06.02 Shortness of breath Shortness of breath Diagnosis 1 10/04/2018 09:01:18 AM [facility] Surgeries/Procedures Procedure Description Date Indications Data Source(s) RADIOLOGIC EXAMINATION KNEE 3 VIEWS 08/23/2020 12:00:0 0 AM EST MED[facility] ([facility]) ECG ROUTINE ECG W/LEAST 12 LDS W/I&R POCT AMB EKG Routine 08/03/2020 9:25 AM EST Hypertension, essential 08/03/2020 02:25:00 PM EST Hypertension, essential Hypertension, essential ARTHRP KNE CONDYLE&PLATU MEDIAL&LAT CMPRTS 07/05/2020 12:00:00 AM EST [facility] ([facility]) ARTHRP KNE CONDYLE&PLATU MEDIAL&LAT CMPRTS 07/05/2020 12:00:00 AM EST [facility] ([facility]) Injec Anesthetic Agent/Steroid Trans Epidural Lumb/Sacral Si ngle 04/26/2020 12:00:00 AM EDT [facility] ([facility]) Epidurography Radiological Supervision & Interpretation 04/26/2020 12:00:00 AM EDT [facility] ([facility]) Moderate Sedation Services; Same Phys Intl 15 Mins; PT >= 5 Years 04/26/2020 12:00:00 AM EDT [facility] ([facility]) RADIOLOGIC EXAM KNEE COMPLETE 4/MORE VIEWS 04/11/2020 12:00:00 AM EDT [facility] ([facility] RADIOLOGIC EXAM KNEE COMPLETE 4/MORE VIEWS 04/11/2020 12:00:00 AM EDT [facility] ([facility] ) RADIOLOGIC EXAM KNEE COMPLETE 4/MORE VIEWS 04/11/2020 12:00:00 AM EDT [facility] ([facility] ) RADIOLOGIC EXAM KNEE COMPLETE 4/MORE VIEWS 04/11/2020 12:00:00 AM EDT [facility] ([facility] ) Injec Anesthetic Agent/Steroid Trans Epidural Lumb/Sacral Si ngle 03/19/2020 12:00:00 AM EDT [facility] ([facility] Epidurography Radiological Supervision & Interpretation 03/19/2020 12:00:00 AM EDT [facility] ([facility] Moderate Sedation Services; Same Phys Intl 15 Mins; PT >= 5 Years 03/19/2020 12:00:00 AM EDT [facility] ARTHROCENTESIS ASPIR&/INJECTION MAJOR JT/BURSA 020 12:00:00 AM EDT [facility] ([facility] ) Injec(S),Diag Or Therapeutic Agent, Paravertebral Lumber Or Sacr 09/12/2019 12:00:00 AM EST [facility] ([facility] Moderate Sedation Services; Same Phys Intl 15 Mins; PT >= 5 Years 09/12/2019 12:00:00 AM EST [facility] ([facility] Moderate Sedation Services; Same Phys Each Additional 15 Min s 09/12/2019 12:00:00 AM EST [facility] ([facility] RESPIRATORY FLOW VOLUME LOOP 09/05/2019 12:00:00 AM ES T [facility] ([facility] CYSTOSCOPY AND TREATMENT 08/01/2019 12:00:00 AM EST eCW1 ([facility]) ARTHROCENTESIS ASPIR&/INJECTION MAJOR JT/BURSA 019 12:00:00 AM EST [facility] ([facility] ) Results ID Date Data Source [id number] 08/30/2020 12:00:00 AM EST [facility] Name Value Range Interpretation Code Description Data Marylou rce(s) Supporting Document(s) SARS-CoV-2 (COVID-19) RNA [Presence] in Respiratory specimen by ТАТЬЯНА with probe detection Not Detected [facility] This lab was ordered by [facility] and reported by [employer]. ID Date Data Source [id number] 07/18/2020 03:58:00 PM EST [facility] ([facility]) Name Value Range Interpretation Code Description Data Marylou rce(s) Supporting Document(s) Triglycerides Level 90 mg/dL Normal (applies to non-nume jr results) [facility] ([facility]) Cholesterol Level 116 mg/dL Normal (applies to non-numeri c results) [facility] ([facility]) HDL Cholesterol 52 mg/dL Normal (applies to non-numeric results) [facility] ([facility]) Non-HDL-C 64 mg/dL Normal (applies to non-numeric resul ts) [facility] ([facility]) LDL Cholesterol 46 mg/dL Normal (applies to non-numeric results) [facility] ([facility]) Cholesterol Risk Ratio 2.230 Normal (applies to non-n umeric results) [facility] ([facility]) ID Date Data Source [id number] 07/18/2020 03:58:00 PM EST [facility] ([facility]) Name Value Range Interpretation Code Description Data Marylou rce(s) Supporting Document(s) Hemoglobin A1c 7.2 % Normal (applies to non-numeric r esults) [facility] ([facility]) <content>REFERENCE RANGES:</content><br/ ><content></content>
<content><=5.6% NORMAL</content>
<content>5.7-6.4% SUGGESTS IMPAIRED GLUCOSE METABOLISM/PREDIABETIC</content>
<content>>= 6.5% ABNORMAL</content>
<content></content> Estimated Average Glucose 160 mg/dL 60-110 Above high normal [facility] ([facility]) ID Date Data Source [id number] 07/18/2020 03:58:00 PM EST [facility] ([facility] Name Value Range Interpretation Code Description Data Marylou rce(s) Supporting Document(s) Glucose, Fasting 170 mg/dL 70-100 Above high normal [facility] ([facility]) Blood Urea Nitrogen 15 mg/dL 7-18 Normal (applies to non-nume jr results) [facility] ([facility]) Creatinine For GFR 0.75 mg/dL 0.55-1.30 Normal (applies to non -numeric results) [facility] ([facility]) Glomerular Filtration Rate Laboratory test result Normal (applies to non- numeric results) [facility] ([facility]) <content>Units are mL/min/1.73 m2</content>
<content></content>
<content>Chronic Kidney Disease Staging per NKF:</content>
<content></content>
<content>Stage I & II GFR >=60 Normal to Mildly Decreased</content>
<content>Stage III GFR 30- 59 Moderately Decreased</content>
<content>Stage IV GFR 15-29 Severely Decreased</content>
<content>Stage V GFR <15 Very Little GFR Left</content>
<content>ESRD GFR <15 on PHYSICAL DAMAGE APPRAISER</content>
<content></content> Potassium Serum 4.4 meq/L 3.5-5.1 Normal (applies to non-numeric results) [facility] ([facility]) Sodium Level 142 meq/L 136-145 Normal (applies to non-numeric res ults) [facility] ([facility]) Chloride Level 108 meq/L 98-107 Above high normal [facility] ([facility]) Anion Gap 5 meq/L 8-16 Below low normal [facility] ( [facility]) Carbon Dioxide Level 29 meq/L 21-32 Normal (applies to non-num cruz results) [facility] ([facility]) Calcium Level 8.9 mg/dL 8.8-10.2 Normal (applies to non-numeric re sults) [facility] ([facility]) Ast/Sgot 26 U/L 7-37 Normal (applies to non-numeric resul ts) [facility] Alt/SGPT 20 U/L 12-78 Normal (applies to non-numeric resul ts) [facility] ([facility]) Alkaline Phosphatase 113 U/L 45-117 Normal (applies to non-num cruz results) [facility] ([facility]) Total Protein 7.2 GM/DL 6.4-8.2 Normal (applies to non-numeric re sults) [facility] ([facility]) Bilirubin,Total 1.0 mg/dL 0.2-1.0 Normal (applies to non-numeric results) [facility] ([facility]) Albumin/Globulin Ratio 0.8 1.2-2.2 Below low normal [facility] ([facility]) Albumin 3.2 GM/DL 3.2-5.2 Normal (applies to non-numeric resul ts) [facility] ([facility]) ID Date Data Source [id number] 07/18/2020 03:58:00 PM EST [facility] ([facility]) Name Value Range Interpretation Code Description Data Marylou rce(s) Supporting Document(s) Red Blood Count 3.35 10 4.00-5.40 Below low normal [facility] ([facility]) White Blood Count 6.1 10 4.0-10.0 Normal (applies to non-numeri c results) [facility] ([facility]) Hemoglobin 11.0 g/dL 12.0-15.5 Below low normal [facility] ( [facility]) Mean Corpuscular Volume 98.8 fl 80.0-96.0 Above high normal [facility] ([facility]) Hematocrit 33.1 % 36.0-47.0 Below low normal [facility] ( [facility]) Mean Corpuscular Hemoglobin 32.8 pg 27.0-33.0 Norm al (applies to non-numeric results) [facility] ([facility]) Red Cell Distribution Width 14.6 % 11.5-14.5 Above high normal [facility] ([facility]) Mean Corpuscular HGB Conc 33.2 g/dL 32.0-36.5 Normal (applies to non-numeric results) [facility] ([facility]) Platelet Count, Automated 247 10 150-450 Normal (applies to non-numeric results) [facility] ([facility]) Neutrophils % 58.3 % 36.0-66.0 Normal (applies to non-numeric re sults) [facility] ([facility]) Lymph % 21.0 % 24.0-44.0 Below low normal [facility] ( [facility]) Stafford % 8.9 % 0.0-5.0 Above high normal [facility] ([facility]) Eos % 10.3 % 0.0-3.0 Above high normal [facility] ([facility]) Baso % 1.0 % 0.0-1.0 Normal (applies to non-numeric resul ts) [facility] ([facility]) Immature Granulocyte % 0.5 % 0-3.0 Normal (applies to non-n umeric results) [facility] ([facility]) Nucleated Red Blood Cell % 0.0 % 0-0 Normal (applies to n on-numeric results) [facility] ([facility]) Neutrophils # 3.6 10 1.5-8.5 Normal (applies to non-numeric re sults) [facility] ([facility]) Lymph # 1.3 10 1.5-5.0 Below low normal [facility] ( [facility]) Eos # 0.6 10 0.0-0.5 Above high normal [facility] ([facility]) Stafford # 0.5 10 0.0-0.8 Normal (applies to non-numeric resul ts) [facility] ([facility]) Baso # 0.1 10 0.0-0.2 Normal (applies to non-numeric resul ts) [facility] ([facility]) ID Date Data Source [id number] 07/18/2020 03:58:00 PM EST [facility] ([facility]) Name Value Range Interpretation Code Description Data Marylou rce(s) Supporting Document(s) Ammonia [Mass/volume] in Blood 55 uMOL/L Above high zari l [facility] ([facility]) ID Date Data Source [id number] 06/30/2020 12:00:00 PM EST [facility] Name Value Range Interpretation Code Description Data Marylou rce(s) Supporting Document(s) SARS coronavirus 2 RNA [facility] This lab was ordered by [facility] and reported by [facility]. ID Date Data Source [id number] 06/24/2020 10:57:00 AM EST [facility] ([facility]) Name Value Range Interpretation Code Description Data Marylou rce(s) Supporting Document(s) Erythrocyte sedimentation rate by Westergren method 32 mm/hr 0-30 [facility] ([facility]) ID Date Data Source [id number] 06/24/2020 10:57:00 AM EST [facility] ([facility]) Name Value Range Interpretation Code Description Data Marylou rce(s) Supporting Document(s) White Blood Count 4.6 10 4.0-10.0 [facility] ([facility]) Hematocrit 39.7 % 36.0-47.0 [facility] ([facility]) Red Blood Count 4.09 10 4.00-5.40 [facility] ([facility]) Hemoglobin 13.8 g/dL 12.0-15.5 [facility] ([facility]) Mean Corpuscular Volume 97.1 fl 80.0-96.0 [facility] ([facility]) Mean Corpuscular Hemoglobin 33.7 pg 27.0-33.0 [facility] ([facility]) Mean Corpuscular HGB Conc 34.8 g/dL 32.0-36.5 [facility] ([facility]) Platelet Count, Automated 164 10 150-450 [facility] ([facility]) Nucleated Red Blood Cell % 0.0 % 0-0 [facility] ([facility]) Red Cell Distribution Width 12.4 % 11.5-14.5 [facility] ([facility]) ID Date Data Source [id number] 06/24/2020 10:57:00 AM EST [facility] ([facility]) Name Value Range Interpretation Code Description Data Marylou rce(s) Supporting Document(s) Glucose, Fasting 157 mg/dL 70-100 [facility] ([facility]) Blood Urea Nitrogen 11 mg/dL 7-18 [facility] ([facility]) Creatinine For GFR 0.74 mg/dL 0.55-1.30 [facility] ([facility]) Glomerular Filtration Rate Laboratory test result [facility] ([facility]) <content>Units are mL/min/1.73 m2</content>
<content></content>
<content>Chronic Kidney Disease Staging per NKF:</content>
<content></content>
<content>Stage I & II GFR >=60 Normal to Mildly Decreased</content>
<content>Stage III GFR 30- 59 Moderately Decreased</content>
<content>Stage IV GFR 15-29 Severely Decreased</content>
<content>Stage V GFR <15 Very Little GFR Left</content>
<content>ESRD GFR <15 on PHYSICAL DAMAGE APPRAISER</content>
<content></content> Sodium Level 144 meq/L 136-145 [facility] ([facility]) Potassium Serum 4.6 meq/L 3.5-5.1 [facility] ([facility]) Chloride Level 112 meq/L 98-107 [facility] ([facility]) Anion Gap 4 meq/L 8-16 [facility] ([facility]) Calcium Level 9.0 mg/dL 8.8-10.2 [facility] ([facility]) Carbon Dioxide Level 28 meq/L 21-32 [facility] ([facility]) Alt/SGPT 38 U/L 12-78 [facility] ([facility]) Alkaline Phosphatase 115 U/L 45-117 [facility] ([facility]) Ast/Sgot 36 U/L 7-37 [facility] ([facility]) Bilirubin,Total 0.8 mg/dL 0.2-1.0 [facility] ([facility]) Total Protein 7.4 GM/DL 6.4-8.2 [facility] ([facility]) Albumin 3.5 GM/DL 3.2-5.2 [facility] ([facility]) Albumin/Globulin Ratio 0.9 1.2-2.2 [facility] ([facility]) ID Date Data Source [id number] 06/24/2020 10:57:00 AM EST [facility] ([facility] Name Value Range Interpretation Code Description Data Marylou rce(s) Supporting Document(s) Glucose, Fasting 157 mg/dL 70-100 Above high normal [facility] ([facility]) Creatinine For GFR 0.74 mg/dL 0.55-1.30 Normal (applies to non -numeric results) [facility]) Blood Urea Nitrogen 11 mg/dL 7-18 Normal (applies to non-nume jr results) [facility] ([facility]) Sodium Level 144 meq/L 136-145 Normal (applies to non-numeric res ults) [facility] ([facility]) Glomerular Filtration Rate Laboratory test result Normal (applies to non- numeric results) [facility] ([facility]) <content>Units are mL/min/1.73 m2</content>
<content></content>
<content>Chronic Kidney Disease Staging per NKF:</content>
<content></content>
<content>Stage I & II GFR >=60 Normal to Mildly Decreased</content>
<content>Stage III GFR 30- 59 Moderately Decreased</content>
<content>Stage IV GFR 15-29 Severely Decreased</content>
<content>Stage V GFR <15 Very Little GFR Left</content>
<content>ESRD GFR <15 on PHYSICAL DAMAGE APPRAISER</content>
<content></content> Chloride Level 112 meq/L 98-107 Above high normal [facility] ([facility]) Potassium Serum 4.6 meq/L 3.5-5.1 Normal (applies to non-numeric results) [facility] ([facility]) Carbon Dioxide Level 28 meq/L 21-32 Normal (applies to non-num cruz results) [facility] ([facility]) Calcium Level 9.0 mg/dL 8.8-10.2 Normal (applies to non-numeric re sults) [facility] ([facility]) Anion Gap 4 meq/L 8-16 Below low normal [facility] ( [facility]) Alt/SGPT 38 U/L 12-78 Normal (applies to non-numeric resul ts) [facility]) Ast/Sgot 36 U/L 7-37 Normal (applies to non-numeric resul ts) [facility]) Bilirubin,Total 0.8 mg/dL 0.2-1.0 Normal (applies to non-numeric results) [facility] ([facility]) Alkaline Phosphatase 115 U/L 45-117 Normal (applies to non-num cruz results) [facility] ([facility]) Albumin 3.5 GM/DL 3.2-5.2 Normal (applies to non-numeric resul ts) [facility] ([facility]) Total Protein 7.4 GM/DL 6.4-8.2 Normal (applies to non-numeric re sults) [facility] ([facility]) Albumin/Globulin Ratio 0.9 1.2-2.2 Below low normal [facility] ([facility]) ID Date Data Source [id number] 06/24/2020 10:57:00 AM EST [facility] ([facility] Name Value Range Interpretation Code Description Data Marylou rce(s) Supporting Document(s) Red Blood Count 4.09 10 4.00-5.40 Normal (applies to non-numeric results) [facility] White Blood Count 4.6 10 4.0-10.0 Normal (applies to non-numeri c results) [facility] ([facility]) Hemoglobin 13.8 g/dL 12.0-15.5 Normal (applies to non-numeric resul ts) [facility] Hematocrit 39.7 % 36.0-47.0 Normal (applies to non-numeric resul ts) [facility] Mean Corpuscular Volume 97.1 fl 80.0-96.0 Above high normal [facility] ([facility]) Mean Corpuscular HGB Conc 34.8 g/dL 32.0-36.5 Normal (applies to non-numeric results) [facility]) Mean Corpuscular Hemoglobin 33.7 pg 27.0-33.0 Above high normal [facility] ([facility]) Red Cell Distribution Width 12.4 % 11.5-14.5 Norm al (applies to non-numeric results) [facility] ([facility]) Platelet Count, Automated 164 10 150-450 Normal (applies to non-numeric results) [facility]) Nucleated Red Blood Cell % 0.0 % 0-0 Normal (applies to n on-numeric results) [facility]) ID Date Data Source [id number] 06/24/2020 10:57:00 AM EST [facility] ([facility] Name Value Range Interpretation Code Description Data Marylou rce(s) Supporting Document(s) Erythrocyte sedimentation rate by Westergren method 32 mm/hr 0-30 Above high normal [facility] ([facility]) ID Date Data Source [id number] 06/24/2020 10:56:00 AM EST [facility] ([facility]) Name Value Range Interpretation Code Description Data Marylou rce(s) Supporting Document(s) Prothrombin Time 14.7 s 12.5-14.3 [facility] ([facility]) Inr 1.12 [facility] ([facility]) THERAPUTIC HUMAN INR VALUES INDICATIONS NORMAL RANGES PROPHYLAXIS/TREATMENT OF: VENOUS THROMBOSIS 2.0-3.0 PULMONARY EMBOLISM 2.0-3.0 PREVENTION OF SYSTEMIC EMBOLISM FROM: TISSUE HEART VALVES 2.0-3.0 ACUTE MYOCARDIAL INFARCTION 2.0-3.0 VALVULAR HEART DISEASE 2.0-3.0 ATRIAL FIBRILLATION 2.0-3.0 MECHANICAL VALVES(HIGH RISK) 2.5-3.5 RECURRENT MYOCARDIAL INFARCTION 2.5-3.5 ID Date Data Source [id number] 06/24/2020 10:56:00 AM EST [facility] ([facility] Name Value Range Interpretation Code Description Data Marylou rce(s) Supporting Document(s) Prothrombin Time 14.7 s 12.5-14.3 Above high normal [facility] ([facility]) Inr 1.12 Normal (applies to non-numeric resul ts) [facility] ([facility]) THERAPUTIC HUMAN INR VALUES INDICATIONS NORMAL RANGES PROPHYLAXIS/TREATMENT OF: VENOUS THROMBOSIS 2.0-3.0 PULMONARY EMBOLISM 2.0-3.0 PREVENTION OF SYSTEMIC EMBOLISM FROM: TISSUE HEART VALVES 2.0-3.0 ACUTE MYOCARDIAL INFARCTION 2.0-3.0 VALVULAR HEART DISEASE 2.0-3.0 ATRIAL FIBRILLATION 2.0-3.0 MECHANICAL VALVES(HIGH RISK) 2.5-3.5 RECURRENT MYOCARDIAL INFARCTION 2.5-3.5 ID Date Data Source [id number] 06/14/2020 10:18:00 AM EDT [facility] ([facility] Name Value Range Interpretation Code Description Data Marylou rce(s) Supporting Document(s) Laboratory test finding (navigational concept) Laboratory test result [facility] ([facility] ) ID Date Data Source [id number] 06/13/2020 01:00:00 PM EDT [facility] ([facility], ) Name Value Range Interpretation Code Description Data Marylou rce(s) Supporting Document(s) PDFReport Laboratory test result [facility] ([facility], ) FVC-Pred 3.79 L [facility] ([facility], ) FVC-Pre 3.42 L [facility] ([facility], ) FVC-%Pred-Pre 90 L [facility] ([facility], ) FVC-LLN 3.00 L [facility] ([facility]) Fev1-Pred 2.92 L [facility] ([facility], ) Fev1-Pre 2.55 L [facility] ([facility], ) Fev6-Pred 3.65 L [facility] ([facility]) Fev1-LLN 2.24 L [facility] ([facility], ) Fev1-%Pred-Pre 87 L [facility] ([facility], ) Fev6-%Pred-Pre 93 L [facility] ([facility], ) Fev6-Pre 3.42 L [facility] ([facility], ) Fev6-LLN 2.87 L [facility] ([facility]) Slh5tpn-Wyjw 77 % [facility] ([facility]) Ivx7edp-Ksm 75 % [facility] ([facility]) Wfr8bta-%Pred-Pre 96 % [facility] ([facility], ) Hjf7bdg-Varm 96 % [facility] ([facility]) Ixp3lyk-NQE 68 % [facility] ([facility], ) Emg4ovw-%Pred-Pre 103 % [facility] ([facility], ) Khu7euw-Xpd 100 % [facility] ([facility]) FEFMax-Pre 7.14 L/E/sec [facility] ([facility]) FEFMax-Pred 6.84 L/E/sec [facility] ([facility]) FEFMax-LLN 4.87 L/E/sec [facility] ([facility]) FEFMax-%Pred-Pre 104 L/E/sec [facility] ([facility]) Ams0859-%Pred-Pre 76 L/E/sec [facility] ([facility]) Iwe0036-Ehj 1.89 L/E/sec [facility] ([facility]) Vjl5428-Uhbe 2.49 L/E/sec [facility] ([facility]) ExpTime-Pre 7.18 sec [facility] ([facility]) Szt7962-CTB 1.07 L/E/sec [facility] ([facility]) Olb2dgf2-Tcok 80 % [facility] ([facility]) Yrr9qsx8-%Pred-Pre 93 % [facility] ([facility]) Oam3ujl1-Qgi 75 % [facility] ([facility]) Rjf5ajr4-ZJQ 71 % [facility] ([facility]) ID Date Data Source [id number] 06/11/2020 07:40:58 AM EDT [facility] Patient History Medical History:Hyperten sionDiabetes - Type IIarthritisAsthmaChronic hepatic encephalopathyBreast cancer survivorGall bladder removedFamily History:Diabetes (Mother)Heart disease (Father )Hypertension (Mother)Social/Personal History: Smoking Status: former smokerCurrent Problems: DENTAL CARIES EXTENDING INTO PULP (ICD-521.03) (ICD10- K02.63)Teeth extraction (ICD-525.10) (TIM93-Q70.499)Breast cancer (ICD-174.9) (SII56-C32.919)Current Medications: * SEE SCANNED LIST * ANASTROZOLE Past Medical History:(reviewed - no changes required) HypertensionDiabetes - Type IIarthritisAsthmaChronic hepatic encephalopathyBreast cancer survivorGall bladder removed Dental Chart: Procedures:Type - CDT Code - Description B - (D0120) Periodic oral evaluation - established patient (Performed by Alda Kilgore DDS) B - (D1110) Prophylaxis, adult (Performed by Torrie Alvarado) B - (D0274) Bitewings, 4 radiographic images (Performed by Torrie Alvarado) Existing:Type - CDT Code - Description[E] Missing - [place] and [place] On #14 Surface O Region XR, #15 Surface O Region XR, #18 Surface O Region XR, #3 Surface O Region XR, #31 Surface O Region XR Chart Alert:HISTORYprophy exam scheduled 05/16/2014panorex taken 08/12/2012 Chart Notes:ricardo (Jun 11 2020 8:25AM): [facility]- no changescc-NoneAdditional PPE requirements due to COVID-19 in the dental setting, N95, surgical mask, hair covering, gown. Extraction done by Dr. Misael ching -handscaled, polished with rotary cup, flossed 4BWX-dexis, [place]-FairPatient is brushing once/day, flossing regularly and uses Biotene mouthwashTrace marginal biofilm and trace marginal and interproximal calculus in sextant 5. Xerostomia observedAdvised patient to wear a nightgurad , as she is grinding her LAOHI-brushing am pm, flossing regularly and then using Biotene mouthwashExcellent patientNV-6 months recallTorrie Alvarado by ricardo (06/11/2020 8:15 AM): ; bebe (Jun 11 2020 8:38AM): [facility](-). CC: none. Reviewed Xrays. Exam: no caries detected. OCS: WNL, IO/ EO completed, No significant hard findings upon clinical exam.Additional PPE requirements due to COVID-19 in the dental setting, N95, surgical mask, hair covering, gown and shieldPt was cooperative. OHI given Referral: N/A NV:Torrie Tolentino by bebe (06/11/2020 8:38 AM): Tooth Notes and Watches:- Tooth 7 Note: Chip presnet, within normal limitsWatson Jennifer MCDERMOTT by valeri (02/09/2019 11:12 AM): Assessment & Plan Medications:SEE SCANNED LISTANASTROZOLEAllergies:No Known Allergies (updated 06/11/2020) Name Value Range Interpretation Code Description Data Marylou rce(s) Supporting Document(s) ID Date Data Source [id number] 06/05/2020 12:00:00 AM EDT [facility] Stanley FRAGOSO Patient Name: CARLOS [id number] [facility] Date of : 1955 4 Date of Exam: 06/05/2020RadhaTHALIA stein [id number]#: Fax: [phone] EXAM: MRI LUMBAR SPINE WITHOUT&WITH CONTRASTPROCEDURE INFORMATION:Exam: MR Lumbar Spine Without and With Contrast.Exam date and time: 06/05/2020 9:27 AM Age: 65 years oldClinical indication: Low back painTECHNIQUE: Imaging protocol: Multiplanar magnetic resonance images of thelumbar spine without and with intravenous contrast. Contrast material:PROHANCE; Contrast volume: 19 ml; Contrast route: INTRAVENOUS (IV);COMPARISON: No relevant prior studies available.FINDINGS:Vertebrae: No acute compression fracture is seen. There is mildretrolisthesis of L3 on L4. There is 7 mm of anterolisthesis of L4 on L5due to severe facet arthropathy.Spinal cord: The conus medullaris terminates at the L1 level. There is noevidence of arachnoiditis or cauda equina compression.T12-L1: There is moderate diffuse circumferential disc bulging and facetarthropathy. This is causing minimal spinal canal stenosis and minimal leftneural foraminal narrowing.L1-L2: There is disc dehydration, severe disc space narrowing, markeddiffuse circumferential disc bulging, circumferential osteophytic ridging,and a superimposed central disc protrusion. Central disc material ismigrating caudally roughly 10 mm from the level of the disc. This iscausing mild/moderate spinal canal stenosis, moderate narrowing of theright subarticular recess, moderate right neural foraminal narrowing, andmild left neural foraminal narrowing.L2-L3: There is marked diffuse circumferential disc bulging with asuperimposed central disc protrusion. Central disc material is migratingcranially and caudally approximately 7 mm from the level of the disc.Moderate facet arthropathy and thickening of the ligamentum flavum is alsopresent. This is causing moderate spinal canal stenosis, moderate narrowingof the subarticular recesses, mild/moderate left neural foraminalnarrowing, and mild right neural foraminal narrowing.L3-L4: There is marked diffuse circumferential disc bulging with asuperimposed central disc protrusion. Central disc material is migratingcaudally roughly 8 mm from the level of the disc. Thickening of theligamentum flavum and severe facet arthropathy is also noted. This iscausing mild spinal canal stenosis, severe narrowing of the rightsubarticular recess, moderate right neural foraminal narrowing, and mildleft neural foraminal narrowing.L4-L5: There is uncovering of the posterior disc due to spondylolisthesis.Marked diffuse circumferential disc bulging, circumferential osteophyticridging, thickening of the ligamentum flavum, and severe facet arthropathyis also noted. This is causing moderate/severe spinal canal stenosis,severe narrowing of the subarticular recesses, severe right neuralforaminal narrowing, and moderate left neural foraminal narrowing.Compression of the exiting right L4 nerve is likely present.L5-S1: There is marked diffuse circumferential disc bulging with asuperimposed central disc protrusion. A far left lateral disc osteophytecomplex is present. There is severe facet arthropathy. There is nosignificant spinal canal stenosis. Mild/moderate right and moderate leftneural foraminal narrowing is present.Soft tissues: Subcutaneous edema is present in the lower back.IMPRESSION:Marked degenerative changes of the lumbar spine as discussed aboveThank you for allowing us to participate in the care of your patient.Dictated and Authenticated by: Karthikeyan Fishman MD 06/05/2020 11:34 AMEastern Time ([place] & [place])ErlinV/Steff you for referring LEROY CALLAHAN to our office. Electronically Signed - [facility] 06/05/20 14:31 Name Value Range Interpretation Code Description Data Marylou rce(s) Supporting Document(s) ID Date Data Source [id number] 06/05/2020 12:00:00 AM EDT [facility] Stanley FRAGOSO Patient Name: CARLOS CALLAHANA[address] [facility] Date of : 1955 4 Date of Exam: 06/05/2020THALIA Muñoz [id number]#: Fax: [phone] EXAM: MRI CERVICAL SPINE WITHOUT&WITH CONTRASTPROCEDURE INFORMATION:Exam: MR Cervical Spine Without and With ContrastExam date and time: 06/05/2020 9:51 AM Age: 65 years oldClinical indication: Neck pain; Prior fidencio jose; Surgery date: 6+ monthsTECHNIQUE: Imaging protocol: Multiplanar magnetic resonance images of thecervical spine without and with intravenous contrast. Contrast material:PROHANCE; Contrast volume: 19 ml; Contrast route: INTRAVENOUS (IV);COMPARISON: MRI CERVICAL SPINE WITHOUT&WITH CONTRAST 05/06/2018 8:45 AMFINDINGS:Vertebrae: The patient is status post C5-7 fusion with anterior plate andscrew fixation. No acute fracture is identified. Alignment is anatomic.Degenerative marrow edema is present in the right C7 and T1 facets.Spinal cord: The cervical cord is of normal signal intensity and size.T here is minimal dilation of the central canal at the C7-T1 level. Noenhancing lesions were identified after the administration of contrast.C2-C3: There is a broad-based central disc protrusion, thickening of theligamentum flavum, severe left facet arthropathy, and mild right facetarthropathy. This is causing moderate/severe spinal canal stenosis withflattening of the cord. No cord edema is identified. Severe left neuralforaminal narrowing is also noted. The right neural foramina is widelypatent.C3-C4: There is a central disc protrusion, mild uncinate spurring, severeright facet arthropathy, and mild left facet arthropathy. The discprotrusion is abutting the ventral surface of the cord. There is no cordcompression or cord edema. Mild spinal canal stenosis, mild left neuralforaminal narrowing, and severe right neural foraminal narrowing ispresent.C4-C5: There is a broad-based posterior disc osteophyte complex, markedright uncinate spurring, moderate left uncinate spurring, thickening of theligamentum flavum, and moderate facet arthropathy. This is causing moderatespinal canal stenosis, moderate/severe left neural foraminal narrowing, andsevere right neural foraminal narrowing.C5-C6: Postoperative fusion is present. A left subarticular osteophyticspur is noted. Moderate bilateral uncinate spurring is also present. Thisis causing minimal spinal canal stenosis, mild narrowing of the leftsubarticular recess, and minimal bilateral neural foraminal narrowing.C6-C7: Postoperative fusion is present. There is a large right paracentraland subarticular osteophytic spur. Severe right uncinate spurring and mildfacet arthropathy is also present. The osteophytic spur is abutting theventral right aspect of the cord. There is no cord compression or cordedema. Mild spinal canal stenosis, mild narrowing of the rightsubarticular recess, and moderate right neural foraminal narrowing ispresent.C7-T1: There is minimal shallow broad-based posterior disc bulging,moderate uncinate spurring, thickening of the ligamentum flavum, and severefacet arthropathy. This is causing minimal spinal canal stenosis and severebilateral neural foraminal narrowing.T1-T2: There is a broad-based posterior disc herniation with a s uperimposedcentral disc protrusion. Central disc material is migrating craniallyapproximately 5 mm from the level of the disc. Severe facet arthropathy isalso noted. This is causing mild spinal canal stenosis and moderatebilateral neural foraminal narrowing. This appears similar to the priorexam. Vertebral arteries: Expected flow voids in the vertebral arteries.Soft tissues: The prevertebral soft tissues are within normal limits.IMPRESSION:Stable degenerative and postoperative changes of the cervical spine asdiscussed aboveThank you for allowing us to participate in the care of your patient.[facility] and Authenticated by: Karthikeyan Fishman MD 06/05/2020 11:15 AMEastern Time ([place] & [place])ErlinV/Steff you for referring LEROY CALLAHAN to our office. Electronically Signed - ERLIN 06/05/20 11:24 Name Value Range Interpretation Code Description Data Marylou rce(s) Supporting Document(s) ID Date Data Source [id number] 05/31/2020 03:36:00 PM EDT [facility] Name Value Range Interpretation Code Description Data Marylou rce(s) Supporting Document(s) Urea nitrogen [Mass/volume] in Serum or Plasma 12 mg/dL 7-18 [facility] ([facility]) ID Date Data Source [id number] 05/31/2020 03:36:00 PM EDT [facility]) Name Value Range Interpretation Code Description Data Marylou rce(s) Supporting Document(s) Creatinine For GFR 0.69 mg/dL 0.55-1.30 [facility]) Glomerular Filtration Rate Laboratory test result [facility] ([facility]) <content>Units are mL/min/1.73 m2</content>
<content></content>
<content>Chronic Kidney Disease Staging per NKF:</content>
<content></content>
<content>Stage I & II GFR >=60 Normal to Mildly Decreased</content>
<content>Stage III GFR 30- 59 Moderately Decreased</content>
<content>Stage IV GFR 15-29 Severely Decreased</content>
<content>Stage V GFR <15 Very Little GFR Left</content>
<content>ESRD GFR <15 on PHYSICAL DAMAGE APPRAISER</content>
<content></content> ID Date Data Source [id number] 05/31/2020 03:36:00 PM EDT [facility] ([facility]) Name Value Range Interpretation Code Description Data Marylou rce(s) Supporting Document(s) Glomerular Filtration Rate Laboratory test result Normal (applies to non- numeric results) [facility] ([facility]) <content>Units are mL/min/1.73 m2</content>
<content></content>
<content>Chronic Kidney Disease Staging per NKF:</content>
<content></content>
<content>Stage I & II GFR >=60 Normal to Mildly Decreased</content>
<content>Stage III GFR 30- 59 Moderately Decreased</content>
<content>Stage IV GFR 15-29 Severely Decreased</content>
<content>Stage V GFR <15 Very Little GFR Left</content>
<content>ESRD GFR <15 on PHYSICAL DAMAGE APPRAISER</content>
<content></content> Creatinine For GFR 0.69 mg/dL 0.55-1.30 Normal (applies to non -numeric results) [facility] ([facility]) ID Date Data Source [id number] 05/31/2020 03:36:00 PM EDT [facility] ([facility]) Name Value Range Interpretation Code Description Data Marylou rce(s) Supporting Document(s) Urea nitrogen [Mass/volume] in Serum or Plasma 12 mg/dL 7 -18 Normal (applies to non-numeric results) [facility] ([facility]) ID Date Data Source [id number] 05/31/2020 03:34:00 PM EDT [facility] ([facility]) Name Value Range Interpretation Code Description Data Marylou rce(s) Supporting Document(s) Hlcdg-2-rqnggengfsl.tumor marker [Mass/volume] in Serum or Plasm a 3.8 ng/mL Normal (applies to non-numeric results) [facility] ([facility]) THE AFP ASSAY IS PERFORMED ON THE [employer] BY CHEMILUMINESCENCE AND SHOULD NOT BE COMPARED INTERCHANGEABLY WITH OTHER METHODS. IT SHOULD NOT BE USED ALONE A SCREENING TEST OR DIAGNOSIS FOR THE PRESENCE OR ABSENCE OF MALIGNANT DISEASE. THESE RESULTS ARE NOT INTERPRETABLE IN FEMALES. PREDICTIONS OF DISEASE RECURRENCE SHOULD NOT BE BASED SOLELY ON VALUES OBTAINED FROM SERIAL PATIENT SERUM VALUES. ID Date Data Source [id number] 05/31/2020 03:34:00 PM EDT [facility] ([facility]) Name Value Range Interpretation Code Description Data Marylou rce(s) Supporting Document(s) Blood Urea Nitrogen 12 mg/dL 7-18 Normal (applies to non-nume jr results) [facility] ([facility]) Creatinine For GFR 0.64 mg/dL 0.55-1.30 Normal (applies to non -numeric results) [facility] ([facility]) Glucose, Fasting 116 mg/dL 70-100 Above high normal [facility]) Glomerular Filtration Rate Laboratory test result Normal (applies to non- numeric results) [facility] ([facility]) <content>Units are mL/min/1.73 m2</content>
<content></content>
<content>Chronic Kidney Disease Staging per NKF:</content>
<content></content>
<content>Stage I & II GFR >=60 Normal to Mildly Decreased</content>
<content>Stage III GFR 30- 59 Moderately Decreased</content>
<content>Stage IV GFR 15-29 Severely Decreased</content>
<content>Stage V GFR <15 Very Little GFR Left</content>
<content>ESRD GFR <15 on PHYSICAL DAMAGE APPRAISER</content>
<content></content> Potassium Serum 4.0 meq/L 3.5-5.1 Normal (applies to non-numeric results) [facility] ([facility]) Sodium Level 141 meq/L 136-145 Normal (applies to non-numeric res ults) [facility] ([facility]) Chloride Level 108 meq/L 98-107 Above high normal [facility] ([facility]) Anion Gap 4 meq/L 8-16 Below low normal [facility] ( [facility]) Calcium Level 9.3 mg/dL 8.8-10.2 Normal (applies to non-numeric re sults) [facility] ([facility]) Carbon Dioxide Level 29 meq/L 21-32 Normal (applies to non-num cruz results) [facility] ([facility]) Alt/SGPT 36 U/L 12-78 Normal (applies to non-numeric resul ts) [facility] ([facility]) Ast/Sgot 29 U/L 7-37 Normal (applies to non-numeric resul ts) [facility] ([facility]) Alkaline Phosphatase 120 U/L 45-117 Above high [facility] Bilirubin,Total 0.7 mg/dL 0.2-1.0 Normal (applies to non-numeric results) [facility] ([facility]) Total Protein 7.3 GM/DL 6.4-8.2 Normal (applies to non-numeric re sults) [facility]) Albumin 3.3 GM/DL 3.2-5.2 Normal (applies to non-numeric resul ts) [facility] ([facility]) Albumin/Globulin Ratio 0.8 1.2-2.2 Below low normal [facility] ([facility]) ID Date Data Source [id number] 05/31/2020 03:34:00 PM EDT [facility] ([facility]) Name Value Range Interpretation Code Description Data Marylou rce(s) Supporting Document(s) Prothrombin Time 13.7 s 12.5-14.3 Normal (applies to non-numeric results) [facility] ([facility]) Inr 1.03 Normal (applies to non-numeric resul ts) [facility] ([facility]) THERAPUTIC HUMAN INR VALUES INDICATIONS NORMAL RANGES PROPHYLAXIS/TREATMENT OF: VENOUS THROMBOSIS 2.0-3.0 PULMONARY EMBOLISM 2.0-3.0 PREVENTION OF SYSTEMIC EMBOLISM FROM: TISSUE HEART VALVES 2.0-3.0 ACUTE MYOCARDIAL INFARCTION 2.0-3.0 VALVULAR HEART DISEASE 2.0-3.0 ATRIAL FIBRILLATION 2.0-3.0 MECHANICAL VALVES(HIGH RISK) 2.5-3.5 RECURRENT MYOCARDIAL INFARCTION 2.5-3.5 ID Date Data Source [id number] 05/31/2020 03:34:00 PM EDT [facility] ([facility]) Name Value Range Interpretation Code Description Data Marylou rce(s) Supporting Document(s) White Blood Count 6.2 10 4.0-10.0 Normal (applies to non-numeri c results) [facility] ([facility]) Red Blood Count 4.18 10 4.00-5.40 Normal (applies to non-numeric results) [facility] ([facility]) Hematocrit 40.2 % 36.0-47.0 Normal (applies to non-numeric resul ts) [facility] ([facility]) Hemoglobin 14.1 g/dL 12.0-15.5 Normal (applies to non-numeric resul ts) [facility] ([facility]) Mean Corpuscular Volume 96.2 fl 80.0-96.0 Above high normal [facility] ([facility]) Red Cell Distribution Width 12.4 % 11.5-14.5 Norm al (applies to non-numeric results) [facility] ([facility]) Mean Corpuscular HGB Conc 35.1 g/dL 32.0-36.5 Normal (applies to non-numeric results) [facility] ([facility]) Mean Corpuscular Hemoglobin 33.7 pg 27.0-33.0 Above high normal [facility] ([facility]) Nucleated Red Blood Cell % 0.0 % 0-0 Normal (applies to n on-numeric results) [facility] ([facility]) Platelet Count, Automated 167 10 150-450 Normal (applies to non-numeric results) [facility] ([facility]) ID Date Data Source [id number] 05/10/2020 10:30:00 AM EDT [facility] Name Value Range Interpretation Code Description Data Marylou rce(s) Supporting Document(s) Follow Up [facility] SZPKRa7pCkMTUpXyINPxDeoWEYjmCQiwKRZwU1F5VYnfIa6NWCpaybTyWGCyZm1+DWJbYD0akq6cAUJi gMy 8nNYHdTapbP5NmQYRwn39NJAUcTSlNDoOgWrOpYPJ0MCIwPAT1IJT7OrKyHleuEU2jZJG4CRDmSThjRB SaBCstNuJlWmnvRM4nHKloJMztFm8CFI7jz3CpMMDrBWIkDqfYEFgnGHahDCNaINOfBDPpP894jdFiTK 1WkAPePRh4TXRbEfQ9FMIgIjH8UJRnMvHmTdXwNFMf ZBJbGWHJHN4UVLHmhXCqWTSiGCsuJG8pzlUpnIK6OG9OjOdmJXLvJERTQ5riEdYiRQGyJPSqYR3qRoVn ICZwKHEnZY2zEFKiMILsCUDmQZ1lXFZnKpEaXNH+Pj4+Ia5WWY4vw5UiCMNhYHWiLwiMEAhpFMplISZi CCYcMB6ZZQNoCFIefWUjZPZqYGUkJaF4NHDwX8Aya7 26usFxiwB5CT6GP8PeNEI8PZk1V3jnJzGhHICmZAK+Pj4+V2PdlqRraDQjLHWgFl8Ro399UR45bgAmZy GsZKQmPy5ZVL9po3SvBBVcLIFrJezCGKwrCIWwZ3CmBIXfDfBqXR1EGA6mHI2WkUpqW8U7BuW9vEGgS9 wbSLuoO3W5bONpG3aGItbjE0DzHzcmyGSbAVofWjco aMHSZNKtRRBeW6BTYDByE32gFG5wA41pe1JEwAWlSXTlELA2eRSdXnhHY8diXOOcGPH9GxEsKMQyI2m1 KQH8HZCqBls1a1FqjyRxcTYuxkPdbGV8Ot9atPAmUR5EKhzi0VbbPO4GpBv1pObP0mCKrfAthiNRj2xv s0qKhGwGMSibEav3y0kCnW356JXLqSkhiHgl0ucpZx i94u2x1pj/7F7Vvf+6RfId1u7jdC0XRAVSvMYPfMXYWAAA1FCX0YPgtVGhTWDA2goEsiirjeXcRPArq8 Zlpad+e8hAWb8Ir1sV/kHFm4vKhz+Sq2YHsGUF885C6KAA6EGzJSjvbPt67xW/4/h/sk05FDgWgS3nIt Q23jX2OUaAUTyISOEWTDJJWReeCpnpTE2cTVCNPIRT CH6as3VxVnGpAwCBPwDWUQuK4I7jqD7oQJZu4mp5I9MI90bezee8xsc9nwuOPuDF61wjLsmTz6ygVsWF ZgyGGBCR69OnzLHJs3eXy51bTVFSmGKKhQy1tndpopkPgx70DmdCG1qkWnp7C36odo/f9P8n0KQWSkPI hU2FOaO+sayfYaLUAKgAksFG0Xx6DiE7jVt62V4GSj 3DdD2OfW2fAa6aiM1hque8Ni7Evt1n3Duk37p0K9pbn257lQHQ8G5h/mk42J5jgqnAMTLQ+UcXHLzXPw 54iEjvPiK/EVdFMXV5+57jKyq+ITDncU5lElqtQHBQ2ly6WU2UYa74D5g/oez/mbCQ/0/K/lPYf+laA2 JcdF4tQGI1uYhr2VWgHii0H/7lX/7lX/7lX/7XAvj+ wLGGCX3ujZeYp9qclqWRoJjWSjfIRhXdIPUuCbG+kVZyNrEOZ0+xuBnuVlWK+r+ecWj32hR7mDp+Allyssa [file] /29wngT9m2H1NxColN9hybyURTl1Jj/M6kYO0W/lise cyFg9W1wkHGLI+QafUDqTpxeuHrKt+U+WjvuHH2FHtEv69teghTFdPr5QKE2PldLgBgpGC2A4WYluPZV IYlCUEhd8Fy4wWhi/DOme12D8/SmSBg0Tqvld0dxrYJJo6l38kgY8T1oEte6a/xbwLAck30W4ItiIRl2 KzH1eTWev1iH5J+qaXu2YbMVEBl6hb9P8U9eQxCLCb 0LzcUgnH1o124vSXsUYbwUPpbeCv8dMl9ntYefnuugNg+OzTrzivMKqV5XMae8yMpW6QcGKyL371s8z8 8UV6UlZbodNrucjayphvFGrVDs76RTNFunZEYVnECosyKI08QGiI8RclgnAbDq/senior care+IZ+Dug+P/ctcV [file] Shelia/X6wYrlhZrYHLXfeRsMei8yHmWXhBoTIMx8JRZNh2qshnLmp5DqxsmjhTT7BxRFLu63n/vIIvf7eW PgZZzqa6j/bwozpVmsnY8S96EjJsSdItr7/n+AmSZv dcFz0FMpOFONdVGs+fRDoFuIK9lO+N+u7ijYzrVslPfZ0w8m0aBH/nJdQOGCI9dRBTGmwhKG4vbf/vAs LJYqLmWiiqGvJNr5/J17UiYkDbmxuEE47ocA9d/FtebETUtYg/kqNt5ePCHl/OMvB5eSjq0iLIWQ7EM3 77ZnF54UKzvfg+HUbTEkzRx5vp29hIyooAszCXEWkp kV8rl/aFQzgUwplyxllbUxofA1B+EbdJHvDUC8L6KDmSGYMRxf3Z8ReD+ksSt0duWLXFWTsq7MRogcNM f17HI4ipGyF8euuWrBQz/serVhsHN13yJUbD1HOq+BHTTsx1paBreQednMevft+KR4+Zs4ImEN3I+sPD sSDON8u55kvjXlkiXTANW2WbF9tKIb2LQG3lDCkuFy gl+qg5kxX/nBHCw+ax0JJiCD4WpAHegOILarATPnURH76pwrzibsFtvZvY4SqRlj+eU3urRpf/MUgcdC NHqhxhuS2XbVNgzIBaBUxj0FNgng5/e+8YLF90TvCCnSFDVWCG+9OJCCwEja17mgaA4dqk8WBZGz6eD+ 0sASzuzHLJDS4wysIs1da6n4ESt84UtG3PvhPJT2Ns zPBgizjxNmYAf69BMUvcM6PhDrF+EJK/Ubq1GDKnEmhSeiQ5kGOnnjli/qv6lpbcg2C29s1adjy/YVp+ PH1hjtxpTu7w3VAnlxlj3ObvI9v4rddjCuEOWDAUqfjbm6RHHmc75lyKM9KHJE5NK3DCxc4gP/L/bXRp 61ou8/fn1Rqs3ql7fx05eKDIMF6Fh/FhyIz4D8a5J2 CjyLzCc0W8hp49fE7F9h6NNyh/n6lTkQ6Qp3hVS0QkITS6hvcuErUGN2gIUBrtd4WHIZ0Lh74perJU4I Circus Supervisor/qcZ3hZTZbwWVnejDv3OD/unLJSI90kngwroQnrsc5OkAtQcNzhs/tgN4fMHelIBj/A1PidmqKYMyv 7VtZh7/u9VM1DKrlp+NPVSYLGXQWkZ7VCiJY0m/7Aj LMyDpC65zAYS6lvYMfgJq8C/rVgT4amUPrFl7thaN2O+tpZixurgM8n7pWxo0G76L6vUui+LSqGOg330 eOk+D138Gu79nphblUmvF+stf6dvaoIfhG6v9OWyFp9yOBjmy3WiAEHDw9+/p7+u1HAb6VlLtfBI34A4 vvQFJHH+1nXtWQL4BP5k38HoNMBMleFT272xaNdlvC EXLLtMkVkDAEMfXVoT2LSWTfI3M7+WZZutXRPlLO+ztVhwbJ8O/cmJUhyoRXMyoOyJhKGE9qh3by0Q+B AijO0YSM6oa1OcFBz2i8rah16wHfc+b+Pr7EzN9ufa68QChuUDYlvxynyd3wOspHMElSk7DK+Annalise+CX [file] a3fvyPS7REtGV6cndFbOZe35nJu+Panda+yi4+Rwnf8oI kXdyoazeVAQQVSfnfPreUfIHHIsVEcljzVlXxkXSrZZ9UrBYeYpv7fhiOcgPzHG30uymckZmhJFtivE/ nkmWORvUmpVakjxt6RC8BLyoSd/baOJUq49zjjsrpm5pa6OGm6XkNFqzwKW5VSzSDLIgVXhLHs1NV5wU MzFrYymd4feVFF6L1w7vhUmtrIeFfz01ybsniJzjsb stRk/0zxNBcLiQOGwAtfwRipsag3kL2bnphVqMvHqbE8n0Htp4fKt6QBdhFt8BK/Lw6rHZqPc9YOU67K auhuRUJCb7HLRrX9+fdMYIW/SOhjzK4s2mWZMTk8f75Rzyfd3JUS5XxQcIGndLY7WqZcVZb12B0gxo3j NmVB/4nfquSgYXq4UnNGZ0gNim5wASR/AwpMU5EDOg WG4EMn83oRjMZlZ4zY9s/bI6M3xhGd1wBEuBLQNG8JaZflkTKzJpS3Ltfmabls7Bes1MzWWqfAQRB3Or GD2oS8XBzC30NoOQZAjzvp8UwyXAePDMVXND0SdJ9XJL4RtaV3+ilniRpfnvr7oKnqoh0IhknQCCxexr t6SSxR2elUTEXGVt+aUEfaQBU4BqOw9vG6tdLgSg0M Yy/hRU7iCEF2iHs0mYcztrUD9185um6/zTKrAunPJsZniW8xk99w54BwC1zfKbSzW3jz7JtxATC5QR5Y s3BrvCUbBz6qWDaAHbXPapmjRVj1Nvs5IdsDQoOR+fjpCujA8M747F7UyPrn6NrCC2iiMwlwW9+U4/upper sorbian [file] YE5N/uOjzuUW0PpUzG3HnO9KrW6+ZCX+stringed instrument assembler/JjHbxnB [file] URQNLaOlIyAe9aZTfMiD3Cm4S7CyHCqU7HIQzkvbcRAE64IBW1nmtOfqE+[place]/nTIFmE+eR8Mm1Khu/ c5ldxlk9A57WZM4nAAucQwQQ7bjXMOHaVq/jG++L/Vd+n049yRME58+ZLZVnA5F09VoYbYt9t59GLntR rxE2grjJ/H7Qd9FE5Imgcw7CiHnBApZMLGi9XoAz4t dKUej9UU6WIQH/4Fs4r/CYhIcDxGi+4Qa1XsD7ZAh9hy/DYLZJcWY0EWGfNx+x4MfEmaIyMgshd1KPNE 8LPoPp2GDsg19XE61pydqwr+PlEZlwpCwBUtEBgd4pJTsjT5glT49QmWn7lZS2e27FY6uKcsJ9TZygVO IZdA88XdG9zkFSxiixiSYPtGNtwxDshsD2EXwQLyz2 sANEC71Y1+d7w8/G47gHleu4A8CB1Sst5eABZ3TBLQhpXdjGfjlm+7NAA6i8XKlzmOs4cWytmL3msA+e X5HmTj7XBt9OFWd6gTh9y3IZ2mspz+lqYiWpDW6w/TZS0MLrOw+YzXzQVEtY2t3zefLTQIYFcS0X7Ne3 le9Yg/nfDedPvH6cDTgB788MIs24AHI/StEZwNagGZ b8K1ih4BBxqdFU1IgPrjLq868sO+R13RfMDLHsSWTcj2hKpc9wD3zYTM7rTc3q71AKkHlp4xxR+EGVY7 1rIDX6SOq1z39yJ9/VIg4VYMZKzqgE4FKvW3MdedFEBQ2I9pwxJ41mBgvGreCLjgT8SJ+5WJ7pwD/eeH 15kLrLpJOCU6G+3HWgBiwU5lJc39yfQ4nuaNFZU873 G1zQBqmvzpvuD0GbkFS6s3AE/SD1GdsPR4PNdcpqwWbABvrnzvrU1oA6SaK7aDDb9wd9Mk3R4Vrk/JOSÉ MIGUEL [file] Gp9PMjiyUuXfd/0fxeDgKrVMlYPUEXiayVoKS6VIb9+C/García+2NGirWb3aLIgh4d9adWd4VW2G+M7tvu [file] 5NhRQwrfUG0kS0J63k0Y20exldiDDWOExJ1msz+Jean-Paul [file] RIb9gnEaRtbqyJDQ3qoxPBTXAam/NuJJFTsCIPHUrnzgcjZOACTAIXRl0aIA7SFSDY6L4r/hCUDRY1ha GUnGsA3XAj6n/5ytso/98nPtjgr8iWoQDXc//D28k3WEilopOM5YxawvqtMxCgnOxFKr2RHyCy+4qpLn JNeq7BdGG3e4P/i5TarGloemhaup/Y6nTvh/DgO78w 2Sm17t/FxOB3/E7KEa+wwZzEmjmgz2wMx0yr79EZZpTuPyFqgdCq04FtsP/mEFBX0qcxckxwk5a+jVfJ UB2fpTPNFIr/Ex0TRE+OxbdETef/tZeNDM6eplfrBG/x/TbimxKISZvnAVWn4dfb8Gu48u/eUV3SQjr6 2C2VPTkAAdmNAIKUj1rj89r76Mc3rct3+uGdmblu0z 1T63QrjIcPMd4yQhiXMt6m27qg6WxzvEvDY9OfxJr78syXxfje3d9ErdsksXATavm0tk9w5golHSWRBL kkGsPLsj/pT7Fn8q/9XFewSJGh2TZqqyqWxM+W0xl0d/F59K4K2i4V26OdITnrugqIkUtZhKnqL6Aw+v VeVDsdqo46SKRr68SIb42lWATCZaXDtdhEE+DrbNr/ YQZOLgghh+ScCLk1EsBRbn/GTMCtt/d/UcgZeKCa7QEeKfjs8xQQBdKfOMc/gPin+/pNN15UNp/h/YNT pd/xz4nM0tdPtWEkeeiK5AIqI1Xb7jhhp98i20V2Bxu8sGS7lsgIui6XQDruTW8f4aow9skQYzzA/catalogue maker [file] [facility]+L9J2tWb4lig6qxwVecbGrjDw0JXzLY3bIcwcveAYn+NLyU3w0PHa3Nmx2lxclunFyZLrguO3W [file] AE4jIHK/wRTED22xH6yNDShO1sijxnAKxnpUbq2DJY2DINhd4i7iZAu+luis enrique+DMkBtddrFwfKUoLu8UQw [file] z29/Ojj5//Guide [employer]pine+3NPzY+YeTlkjfozNc+Qk1wCmsatgS+42oaORaRJn5zTl/kz2T2wjjRtgSHnBkv3tV8 [file] stringed instrument assembler+WwD+pit0v/EiEOj3hM88rW5lWcYF8JFHVYxBv+w [file] tinajero/EFqbLg2zIDfUgRf9sCForn/0Layj612h8hgY1bn p6DlPdBRX7vTqr1T+VjCya9hFqv90GFvJyuAhUvz9Fr3BHZHU4i15uQBZmGK6FmtIs6dxpi6EPZodfhN 8F8iwhuW7M7E+Q+cvfhGJsE0oSQ95TmBTyEcffWGkAy2GzXm+ewYihFjjLjohYvQk3Qrk+9ZybvojhPj k2Opn/Sy2fF6+9bcJrrEISLMnQt1uN+gomSJuisU5/ AwlJXjWcjrBfE41KidLlOgDNO/EmlS4tz5QZSt5d/DzmL88NkRMYwCW3n+0pxvrPcYZWAjmVFPPbsSmZ t12UJlFacdmplKbeKoo/gdAL3zg/ArjduE5HoLxlN/plf5Gjievc/o2YteuFQL/mentally retarded teacher+nvh8stGzZYbdPK [file] R+ryr11dvswK9WlGYCexj6Gj4Lok6fwcD4qept [file] rEDZg1QKSdOUSYCyXSXQN0VXAyVRQtXom5FTSENDY5 OEJDRTA+KIioHAOtRvMLCCCDSKfKGfGKNHTcWSQ8FKLPHDf9KlBVPC9vY4Rbf7MsYXZpENKdUB4oseAx DZNdDi6DfOriSWNpB2J8vNRhJ9zYSODpMdZtMLD4OQZcDk2bnIUcYZ2ICunaF7LbQFDjEWEWYIDDVzs+ ETDM28RxddEKVQo9H6XrsjlOm3Mxa94KfOtHLz1XzZ R/mNfACXBgl1OuKrcyJVUvqaWmX5RtrWQCEriNUT4KTh2WBF4hb5CpCULqQRrlleLdFkqNQDhhzYDygY atXPXCVoZpGVzhMbEXXgLdZA3W ID Date Data Source [id number] 04/26/2020 02:03:00 PM EDT [facility] ([facility] Name Value Range Interpretation Code Description Data Marylou rce(s) Supporting Document(s) Glucose, Fasting 214 mg/dL 70-100 Above high normal M [facility] ([facility]) Creatinine For GFR 0.76 mg/dL 0.55-1.30 Normal (applies to non -numeric results) [facility] ([facility]) Blood Urea Nitrogen 11 mg/dL 7-18 Normal (applies to non-nume jr results) [facility] ([facility]) Potassium Serum 4.2 meq/L 3.5-5.1 Normal (applies to non-numeric results) [facility] ([facility]) Glomerular Filtration Rate Laboratory test result Normal (applies to non- numeric results) [facility] ([facility]) <content>Units are mL/min/1.73 m2</content>
<content></content>
<content>Chronic Kidney Disease Staging per NKF:</content>
<content></content>
<content>Stage I & II GFR >=60 Normal to Mildly Decreased</content>
<content>Stage III GFR 30- 59 Moderately Decreased</content>
<content>Stage IV GFR 15-29 Severely Decreased</content>
<content>Stage V GFR <15 Very Little GFR Left</content>
<content>ESRD GFR <15 on PHYSICAL DAMAGE APPRAISER</content>
<content></content> Sodium Level 140 meq/L 136-145 Normal (applies to non-numeric res ults) [facility] ([facility]) Chloride Level 109 meq/L 98-107 Above high normal [facility] ([facility]) Carbon Dioxide Level 26 meq/L 21-32 Normal (applies to non-num cruz results) [facility] ([facility]) Anion Gap 5 meq/L 8-16 Below low [facility] Calcium Level 9.2 mg/dL 8.8-10.2 Normal (applies to non-numeric re sults) [facility] ([facility]) Ast/Sgot 32 U/L 7-37 Normal (applies to non-numeric resul ts) [facility] ([facility]) Alt/SGPT 43 U/L 12-78 Normal (applies to non-numeric resul ts) [facility] ([facility]) Bilirubin,Total 0.8 mg/dL 0.2-1.0 Normal (applies to non-numeric results) [facility]) Total Protein 7.8 GM/DL 6.4-8.2 Normal (applies to non-numeric re sults) [facility] ([facility]) Alkaline Phosphatase 121 U/L 45-117 Above high normal [facility] ([facility]) Albumin 3.8 GM/DL 3.2-5.2 Normal (applies to non-numeric resul ts) [facility] ([facility]) Albumin/Globulin Ratio 1.0 1.2-2.2 Below low normal [facility] ([facility]) ID Date Data Source [id number] 04/26/2020 02:03:00 PM EDT [facility] ([facility]) Name Value Range Interpretation Code Description Data Marylou rce(s) Supporting Document(s) Ammonia [Mass/volume] in Blood 24 uMOL/L N ormal (applies to non-numeric results) [facility] ([facility]) ID Date Data Source [id number] 04/26/2020 02:03:00 PM EDT [facility] ([facility]) Name Value Range Interpretation Code Description Data Marylou rce(s) Supporting Document(s) Hemoglobin A1c 6.6 % Normal (applies to non-numeric r esults) [facility] ([facility]) <content>REFERENCE RANGES:</content><br/ ><content></content>
<content><=5.6% NORMAL</content>
<content>5.7-6.4% SUGGESTS IMPAIRED GLUCOSE METABOLISM/PREDIABETIC</content>
<content>>= 6.5% ABNORMAL</content>
<content></content> Estimated Average Glucose 143 mg/dL 60-110 Above high normal [facility] ([facility]) ID Date Data Source [id number] 04/26/2020 02:03:00 PM EDT [facility] ([facility]) Name Value Range Interpretation Code Description Data Marylou rce(s) Supporting Document(s) White Blood Count 5.9 10 4.0-10.0 Normal (applies to non-numeri c results) [facility] ([facility]) Red Blood Count 4.19 10 4.00-5.40 Normal (applies to non-numeric results) [facility] ([facility]) Hemoglobin 14.1 g/dL 12.0-15.5 Normal (applies to non-numeric resul ts) [facility] ([facility]) Hematocrit 41.8 % 36.0-47.0 Normal (applies to non-numeric resul ts) [facility] ([facility]) Mean Corpuscular Volume 99.8 fl 80.0-96.0 Above high normal [facility] ([facility]) Mean Corpuscular Hemoglobin 33.7 pg 27.0-33.0 Above high normal [facility] ([facility]) Mean Corpuscular HGB Conc 33.7 g/dL 32.0-36.5 Normal (applies to non-numeric results) [facility] ([facility]) Red Cell Distribution Width 13.1 % 11.5-14.5 Norm al (applies to non-numeric results) [facility] ([facility]) Platelet Count, Automated 182 10 150-450 Normal (applies to non-numeric results) [facility] ([facility]) Stafford % 7.5 % 0.0-5.0 Above high normal [facility] ([facility]) Lymph % 28.8 % 24.0-44.0 Normal (applies to non-numeric resul ts) [facility] ([facility]) Neutrophils % 52.1 % 36.0-66.0 Normal (applies to non-numeric re sults) [facility] ([facility]) Eos % 10.2 % 0.0-3.0 Above high normal [facility] ([facility]) Baso % 1.2 % 0.0-1.0 Above high normal [facility] ([facility]) Immature Granulocyte % 0.2 % 0-3.0 Normal (applies to non-n umeric results) [facility] ([facility]) Neutrophils # 3.1 10 1.5-8.5 Normal (applies to non-numeric re sults) [facility] ([facility]) Nucleated Red Blood Cell % 0.0 % 0-0 Normal (applies to n on-numeric results) [facility] ([facility]) Stafford # 0.4 10 0.0-0.8 Normal (applies to non-numeric resul ts) [facility] ([facility]) Eos # 0.6 10 0.0-0.5 Above high normal [facility] ([facility]) Lymph # 1.7 10 1.5-5.0 Normal (applies to non-numeric resul ts) [facility] ([facility]) Baso # 0.1 10 0.0-0.2 Normal (applies to non-numeric resul ts) [facility] ([facility]) ID Date Data Source [id number] 04/26/2020 02:03:00 PM EDT [facility] ([facility]) Name Value Range Interpretation Code Description Data Marylou rce(s) Supporting Document(s) Calcidiol [Mass/volume] in Serum or Plasma 37.2 ng/mL 30.0- 100.0 Normal (applies to non-numeric results) [facility] ([facility]) Ferritin [Mass/volume] in Serum or Plasma 30 ng/mL 8-252 Normal (applies to non- numeric results) [facility] ([facility]) Iron [Mass/volume] in Serum or Plasma 124 ug/dL 50-170 Normal (applies to non- numeric results) [facility] ([facility]) Cobalamin (Vitamin B12) [Mass/volume] in Serum or Plasma 1823 pg /mL 247-911 Above high normal [facility] ([facility]) VITAMIN B12 NORMAL RANGE NORMAL 247 - 911 PG/ML INDETERMINATE 211 - 246 PG/ML DEFICIENT LESS THAN 211 PG/ML ID Date Data Source [id number] 04/21/2020 12:00:00 PM EDT [facility] ([facility]) Name Value Range Interpretation Code Description Data Marylou rce(s) Supporting Document(s) Coronavirus 2019 Nasopharygeal Laboratory test result [facility] ([facility]) This test was developed and its performa nce characteristics determined by [facility]. This test has not been FDA cleared [...] detected) result in this assay. Performed at: [facility] [id number] Director Government: Sheri Mcclellan MD, Phone: [phone] Not Detected ID Date Data Source [id number] 04/21/2020 12:00:00 PM EDT [facility] Name Value Range Interpretation Code Description Data Marylou rce(s) Supporting Document(s) SARS coronavirus 2 RNA [facility] This lab was ordered by [facility] and reported by [facility]. ID Date Data Source [id number] 04/21/2020 10:54:00 AM EDT [facility] ([facility]) Name Value Range Interpretation Code Description Data Marylou rce(s) Supporting Document(s) Platelets [#/volume] in Blood by Automated count 162 10 150-450 [facility] ([facility]) Prothrombin time (PT) Laboratory test result [facility] ([facility]) ID Date Data Source [id number] 04/21/2020 10:54:00 AM EDT [facility] ([facility]) Name Value Range Interpretation Code Description Data Marylou rce(s) Supporting Document(s) Inr 1.10 [facility] ([facility]) THERAPUTIC HUMAN INR VALUES INDICATIONS NORMAL RANGES PROPHYLAXIS/TREATMENT OF: VENOUS THROMBOSIS 2.0-3.0 PULMONARY EMBOLISM 2.0-3.0 PREVENTION OF SYSTEMIC EMBOLISM FROM: TISSUE HEART VALVES 2.0-3.0 ACUTE MYOCARDIAL INFARCTION 2.0-3.0 VALVULAR HEART DISEASE 2.0-3.0 ATRIAL FIBRILLATION 2.0-3.0 MECHANICAL VALVES(HIGH RISK) 2.5-3.5 RECURRENT MYOCARDIAL INFARCTION 2.5-3.5 Prothrombin Time 14.5 s 11.8-14.0 [facility] ([facility]) Partial Thromboplastin Time 35.6 s 25.0-38.4 [facility] ([facility]) ID Date Data Source [id number] 04/21/2020 10:54:00 AM EDT [facility] ([facility]) Name Value Range Interpretation Code Description Data Marylou rce(s) Supporting Document(s) aPTT in Platelet poor plasma by Coagulation assay 35.6 s 25.0-38.4 Normal (applies to non-numeric results) [facility] ([facility]) ID Date Data Source [id number] 04/21/2020 10:54:00 AM EDT [facility] ([facility]) Name Value Range Interpretation Code Description Data Marylou rce(s) Supporting Document(s) Prothrombin Time 14.5 s 11.8-14.0 Above high normal [facility]) Inr 1.10 Normal (applies to non-numeric resul ts) [facility] ([facility]) THERAPUTIC HUMAN INR VALUES INDICATIONS NORMAL RANGES PROPHYLAXIS/TREATMENT OF: VENOUS THROMBOSIS 2.0-3.0 PULMONARY EMBOLISM 2.0-3.0 PREVENTION OF SYSTEMIC EMBOLISM FROM: TISSUE HEART VALVES 2.0-3.0 ACUTE MYOCARDIAL INFARCTION 2.0-3.0 VALVULAR HEART DISEASE 2.0-3.0 ATRIAL FIBRILLATION 2.0-3.0 MECHANICAL VALVES(HIGH RISK) 2.5-3.5 RECURRENT MYOCARDIAL INFARCTION 2.5-3.5 ID Date Data Source [id number] 04/21/2020 10:54:00 AM EDT [facility] ([facility]) Name Value Range Interpretation Code Description Data Marylou rce(s) Supporting Document(s) Platelets [#/volume] in Blood by Automated count 162 10 150-450 Normal (applies to non-numeric results) [facility]) ID Date Data Source [id number] 04/20/2020 09:55:00 AM EDT [facility] ([facility]) Name Value Range Interpretation Code Description Data Marylou rce(s) Supporting Document(s) Erythrocyte sedimentation rate by Westergren method 38 mm/hr 0-30 [facility] ([facility]) ID Date Data Source [id number] 04/20/2020 09:55:00 AM EDT [facility] Name Value Range Interpretation Code Description Data Marylou rce(s) Supporting Document(s) White Blood Count 10.8 10 4.0-10.0 [facility] ([facility]) Hemoglobin 11.7 g/dL 12.0-15.5 [facility] ([facility]) Hematocrit 35.3 % 36.0-47.0 [facility] ([facility]) Red Blood Count 3.76 10 4.00-5.40 [facility] ([facility]) Mean Corpuscular Hemoglobin 31.1 pg 27.0-33.0 [facility] ([facility]) Mean Corpuscular HGB Conc 33.1 g/dL 32.0-36.5 [facility] ([facility]) Mean Corpuscular Volume 93.9 fl 80.0-96.0 M [facility] ([facility] Red Cell Distribution Width 13.6 % 11.5-14.5 [facility] ([facility]) Platelet Count, Automated 78 10 150-450 [facility] ([facility]) Scan Verified machine results Neutrophils % 87.4 % 36.0-66.0 [facility] ([facility]) Lymph % 9.3 % 24.0-44.0 [facility] ([facility]) Stafford % 2.1 % 0.0-5.0 [facility] ([facility]) Baso % 0.1 % 0.0-1.0 [facility] ([facility]) Immature Granulocyte % 1.1 % 0-3.0 [facility] ([facility]) Eos % 0.0 % 0.0-3.0 [facility] ([facility]) Nucleated Red Blood Cell % 0.0 % 0-0 [facility] ([facility]) Neutrophils # 9.4 10 1.5-8.5 [facility] ([facility]) Lymph # 1.0 10 1.5-5.0 [facility] ([facility]) Stafford # 0.2 10 0.0-0.8 [facility] ([facility]) Eos # 0.0 10 0.0-0.5 [facility] ([facility]) Baso # 0.0 10 0.0-0.2 [facility] ([facility]) ID Date Data Source [id number] 03/15/2020 12:00:00 PM EDT [facility] ([facility]) Name Value Range Interpretation Code Description Data Marylou rce(s) Supporting Document(s) Coronavirus 2019 Nasopharygeal Laboratory test result [facility] ([facility] ) Testing was performed using the jacoby(R) SARS-CoV-2 test. This test was developed and its performance characteristics determined by [facility]. This test has not been FDA cleared [...] detected) result in this assay. Performed at: [facility] [id number] Director Government: Sheri Mcclellan MD, Phone: [phone] Not Detected ID Date Data Source [id number] 03/15/2020 12:00:00 PM EDT [facility] Name Value Range Interpretation Code Description Data Marylou rce(s) Supporting Document(s) SARS coronavirus 2 RNA [facility] This lab was ordered by [facility] and reported by [facility]. ID Date Data Source [id number] 03/09/2020 10:49:40 AM EDT [facility] Name Value Range Interpretation Code Description Data Marylou rce(s) Supporting Document(s) Progress Note [facility] [id number] [facility] [file] [id number] ID Date Data Source [id number] 03/05/2020 08:47:00 AM EDT [facility] ([facility] Name Value Range Interpretation Code Description Data Marylou rce(s) Supporting Document(s) 21-Hydroxylase Ab [Units/volume] in Serum Laboratory test result [facility] ([facility]) SEE SEPARATE REPORT ID Date Data Source [id number] 03/05/2020 08:47:00 AM EDT [facility] ([facility] ) Name Value Range Interpretation Code Description Data Marylou rce(s) Supporting Document(s) Testosterone Total For T&D Laboratory test result [facility] ([facility]) See Separate Report Testosterone Free (Direct) Laboratory test result [facility] ([facility] ) See Separate Report ID Date Data Source [id number] 03/05/2020 08:47:00 AM EDT [facility] ([facility] ) Name Value Range Interpretation Code Description Data Marylou rce(s) Supporting Document(s) Adrenal Ab [Units/volume] in Serum Laboratory test result [facility] ([facility]) See Separate Report Testing performed at reference lab . Report copy to follow on a separate form. 04/20/20 REF LAB#:[id number] Estradiol (E2) [Moles/volume] in Serum or Plasma by Hi gh sensitivity method Laboratory test result [facility] ([facility]) See Separate Report ID Date Data Source [id number] 02/10/2020 07:09:00 AM EDT [facility] ([facility]) Name Value Range Interpretation Code Description Data Marylou rce(s) Supporting Document(s) Inr 1.14 Normal (applies to non-numeric resul ts) [facility] ([facility]) THERAPUTIC HUMAN INR VALUES INDICATIONS NORMAL RANGES PROPHYLAXIS/TREATMENT OF: VENOUS THROMBOSIS 2.0-3.0 PULMONARY EMBOLISM 2.0-3.0 PREVENTION OF SYSTEMIC EMBOLISM FROM: TISSUE HEART VALVES 2.0-3.0 ACUTE MYOCARDIAL INFARCTION 2.0-3.0 VALVULAR HEART DISEASE 2.0-3.0 ATRIAL FIBRILLATION 2.0-3.0 MECHANICAL VALVES(HIGH RISK) 2.5-3.5 RECURRENT MYOCARDIAL INFARCTION 2.5-3.5 Prothrombin Time 14.3 s 11.8-14.0 Above high normal [facility] ID Date Data Source [id number] 02/10/2020 07:09:00 AM EDT [facility] Name Value Range Interpretation Code Description Data Marylou rce(s) Supporting Document(s) Folate [Mass/volume] in Red Blood Cells Laboratory test result [facility] ([facility]) Calcidiol [Mass/volume] in Serum or Plasma Laboratory test result [facility] ([facility]) ID Date Data Source [id number] 02/10/2020 07:09:00 AM EDT [facility] ([facility]) Name Value Range Interpretation Code Description Data Marylou rce(s) Supporting Document(s) Hemoglobin 12.9 g/dL 12.0-15.5 Normal (applies to non-numeric resul ts) [facility] ([facility]) Red Blood Count 3.87 10 4.00-5.40 Below low normal [facility] ([facility]) White Blood Count 6.0 10 4.0-10.0 Normal (applies to non-numeri c results) [facility] ([facility]) Mean Corpuscular Volume 98.4 fl 80.0-96.0 Above high normal [facility] ([facility]) Mean Corpuscular Hemoglobin 33.3 pg 27.0-33.0 Above high normal [facility] ([facility]) Hematocrit 38.1 % 36.0-47.0 Normal (applies to non-numeric resul ts) [facility] ([facility]) Mean Corpuscular HGB Conc 33.9 g/dL 32.0-36.5 Normal (applies to non-numeric results) [facility] ([facility]) Red Cell Distribution Width 13.5 % 11.5-14.5 Norm al (applies to non-numeric results) [facility] ([facility]) Platelet Count, Automated 142 10 150-450 Below low normal [facility] ([facility]) Lymph % 30.5 % 24.0-44.0 Normal (applies to non-numeric resul ts) [facility] ([facility]) Neutrophils % 48.6 % 36.0-66.0 Normal (applies to non-numeric re sults) [facility] ([facility]) Stafford % 8.6 % 0.0-5.0 Above high normal [facility] ([facility]) Eos % 11.1 % 0.0-3.0 Above high normal [facility] ([facility]) Baso % 1.0 % 0.0-1.0 Normal (applies to non-numeric resul ts) [facility] ([facility]) Immature Granulocyte % 0.2 % 0-3.0 Normal (applies to non-n umeric results) [facility] ([facility]) Neutrophils # 2.9 10 1.5-8.5 Normal (applies to non-numeric re sults) [facility] ([facility]) Nucleated Red Blood Cell % 0.0 % 0-0 Normal (applies to n on-numeric results) [facility] ([facility]) Lymph # 1.8 10 1.5-5.0 Normal (applies to non-numeric resul ts) [facility] ([facility]) Eos # 0.7 10 0.0-0.5 Above high normal [facility] ([facility]) Stafford # 0.5 10 0.0-0.8 Normal (applies to non-numeric resul ts) [facility] ([facility]) Baso # 0.1 10 0.0-0.2 Normal (applies to non-numeric resul ts) [facility] ([facility]) ID Date Data Source [id number] 02/10/2020 07:09:00 AM EDT [facility] ([facility]) Name Value Range Interpretation Code Description Data Marylou rce(s) Supporting Document(s) Ferritin [Mass/volume] in Serum or Plasma Laboratory test result [facility] ([facility]) ID Date Data Source [id number] 02/10/2020 07:09:00 AM EDT [facility] ([facility]) Name Value Range Interpretation Code Description Data Marylou rce(s) Supporting Document(s) Ammonia [Mass/volume] in Blood Laboratory test result [facility] ([facility]) ID Date Data Source [id number] 01/23/2020 11:08:00 AM EDT [facility] ([facility]) Name Value Range Interpretation Code Description Data Marylou rce(s) Supporting Document(s) Hemoglobin A1c 6.9 % Normal (applies to non-numeric r esults) [facility] ([facility]) REFERENCE RANGES: 4.5-5.6% NORMAL 5.7-6.4% SUGGESTS IMPAIRED GLUCOSE META BOLISM >= 6.5% ABNORMAL Estimated Average Glucose 151 mg/dL 60-110 Above high normal [facility] ([facility]) ID Date Data Source [id number] 01/23/2020 11:08:00 AM EDT [facility] ([facility]) Name Value Range Interpretation Code Description Data Marylou rce(s) Supporting Document(s) Thyroid Stimulating Hormone 2.460 uIU/ML 0.358-3.740 Norm al (applies to non- numeric results) [facility] ([facility]) Free T4 0.71 ng/dL 0.76-1.46 Below low normal [facility]) ID Date Data Source [id number] 01/23/2020 11:08:00 AM EDT [facility] ([facility]) Name Value Range Interpretation Code Description Data Marylou rce(s) Supporting Document(s) Cholesterol Level 128 mg/dL Normal (applies to non-numeri c results) [facility] ([facility]) Triglycerides Level 51 mg/dL Normal (applies to non-nume jr results) [facility] ([facility]) LDL Cholesterol 56 mg/dL Normal (applies to non-numeric results) [facility] ([facility]) Non-HDL-C 66 mg/dL Normal (applies to non-numeric resul ts) [facility] ([facility]) HDL Cholesterol 62 mg/dL Normal (applies to non-numeric results) [facility] ([facility]) Cholesterol Risk Ratio 2.064 Normal (applies to non-n umeric results) [facility] ([facility]) ID Date Data Source [id number] 01/23/2020 11:08:00 AM EDT [facility] ([facility] Name Value Range Interpretation Code Description Data Marylou rce(s) Supporting Document(s) Glucose, Fasting 161 mg/dL 70-100 Above high normal [facility] Glomerular Filtration Rate Laboratory test result Normal (applies to non- numeric results) [facility] [facility] <content>Units are mL/min/1.73 m2</content>
<content></content>
<content>Chronic Kidney Disease Staging per NKF:</content>
<content></content>
<content>Stage I & II GFR >=60 Normal to Mildly Decreased</content>
<content>Stage III GFR 30- 59 Moderately Decreased</content>
<content>Stage IV GFR 15-29 Severely Decreased</content>
<content>Stage V GFR <15 Very Little GFR Left</content>
<content>ESRD GFR <15 on PHYSICAL DAMAGE APPRAISER</content>
<content></content> Creatinine For GFR 0.70 mg/dL 0.55-1.30 Normal (applies to non -numeric results) [facility] ([facility]) Blood Urea Nitrogen 14 mg/dL 7-18 Normal (applies to non-nume jr results) [facility] ([facility]) Potassium Serum 4.1 meq/L 3.5-5.1 Normal (applies to non-numeric results) [facility] ([facility]) Sodium Level 148 meq/L 136-145 Above high normal [facility] ([facility]) Carbon Dioxide Level 28 meq/L 21-32 Normal (applies to non-num cruz results) [facility] ([facility]) Anion Gap 6 meq/L 8-16 Below low normal [facility] ( [facility]) Chloride Level 114 meq/L 98-107 Above high normal [facility] ([facility]) Ast/Sgot 36 U/L 7-37 Normal (applies to non-numeric resul ts) [facility] ([facility]) Alkaline Phosphatase 113 U/L 45-117 Normal (applies to non-num cruz results) [facility] ([facility]) Calcium Level 8.9 mg/dL 8.8-10.2 Normal (applies to non-numeric re sults) [facility] ([facility]) Alt/SGPT 47 U/L 12-78 Normal (applies to non-numeric resul ts) [facility] ([facility]) Albumin 3.4 GM/DL 3.2-5.2 Normal (applies to non-numeric resul ts) [facility] ([facility]) Total Protein 7.5 GM/DL 6.4-8.2 Normal (applies to non-numeric re sults) [facility] ([facility]) Bilirubin,Total 0.7 mg/dL 0.2-1.0 Normal (applies to non-numeric results) [facility] ([facility]) Albumin/Globulin Ratio 0.8 1.2-2.2 Below low normal [facility] ([facility]) ID Date Data Source [id number] 01/23/2020 11:08:00 AM EDT [facility] ([facility]) Name Value Range Interpretation Code Description Data Marylou rce(s) Supporting Document(s) Ammonia [Mass/volume] in Blood 58 uMOL/L Above high zari l [facility] ([facility]) ID Date Data Source [id number] 01/23/2020 11:08:00 AM EDT [facility] ([facility]) Name Value Range Interpretation Code Description Data Marylou rce(s) Supporting Document(s) White Blood Count 5.2 10 4.0-10.0 Normal (applies to non-numeri c results) [facility] ([facility]) Hemoglobin 13.7 g/dL 12.0-15.5 Normal (applies to non-numeric resul ts) [facility] ([facility]) Red Blood Count 4.02 10 4.00-5.40 Normal (applies to non-numeric results) [facility] ([facility]) Mean Corpuscular Hemoglobin 34.1 pg 27.0-33.0 Above high normal [facility] ([facility]) Mean Corpuscular Volume 98.0 fl 80.0-96.0 Above high normal [facility] ([facility]) Hematocrit 39.4 % 36.0-47.0 Normal (applies to non-numeric resul ts) [facility] ([facility]) Mean Corpuscular HGB Conc 34.8 g/dL 32.0-36.5 Normal (applies to non-numeric results) [facility] ([facility]) Red Cell Distribution Width 13.1 % 11.5-14.5 Norm al (applies to non-numeric results) [facility] ([facility]) Platelet Count, Automated 161 10 150-450 Normal (applies to non-numeric results) [facility] ([facility]) Neutrophils % 50.5 % 36.0-66.0 Normal (applies to non-numeric re sults) [facility] ([facility]) Stafford % 9.3 % 0.0-5.0 Above high normal [facility] ([facility]) Lymph % 26.1 % 24.0-44.0 Normal (applies to non-numeric resul ts) [facility] ([facility]) Immature Granulocyte % 0.2 % 0-3.0 Normal (applies to non-n umeric results) [facility] ([facility]) Baso % 2.1 % 0.0-1.0 Above high normal [facility] ([facility]) Eos % 11.8 % 0.0-3.0 Above high normal [facility] ([facility]) Lymph # 1.4 10 1.5-5.0 Below low normal [facility] ( [facility]) Neutrophils # 2.6 10 1.5-8.5 Normal (applies to non-numeric re sults) [facility] ([facility]) Nucleated Red Blood Cell % 0.0 % 0-0 Normal (applies to n on-numeric results) [facility] ([facility]) Baso # 0.1 10 0.0-0.2 Normal (applies to non-numeric resul ts) [facility] ([facility]) Eos # 0.6 10 0.0-0.5 Above high normal [facility] ([facility]) Stafford # 0.5 10 0.0-0.8 Normal (applies to non-numeric resul ts) [facility] ([facility]) ID Date Data Source [id number] 11/04/2019 11:21:00 AM EDT [facility] ([facility]) Name Value Range Interpretation Code Description Data Marylou rce(s) Supporting Document(s) Npxse-7-imfvcafjsub.tumor marker [Mass/volume] in Serum or Plasm a 3.2 ng/mL Normal (applies to non-numeric results) [facility] ([facility]) THE AFP ASSAY IS PERFORMED ON THE [employer] BY CHEMILUMINESCENCE AND SHOULD NOT BE COMPARED INTERCHANGEABLY WITH OTHER METHODS. IT SHOULD NOT BE USED ALONE A SCREENING TEST OR DIAGNOSIS FOR THE PRESENCE OR ABSENCE OF MALIGNANT DISEASE. THESE RESULTS ARE NOT INTERPRETABLE IN FEMALES. PREDICTIONS OF DISEASE RECURRENCE SHOULD NOT BE BASED SOLELY ON VALUES OBTAINED FROM SERIAL PATIENT SERUM VALUES. ID Date Data Source [id number] 11/04/2019 11:21:00 AM EDT [facility] ([facility]) Name Value Range Interpretation Code Description Data Marylou rce(s) Supporting Document(s) Prothrombin Time 14.7 s 11.8-14.0 Above high normal [facility] ([facility]) Inr 1.17 Normal (applies to non-numeric resul ts) [facility] ([facility]) THERAPUTIC HUMAN INR VALUES INDICATIONS NORMAL RANGES PROPHYLAXIS/TREATMENT OF: VENOUS THROMBOSIS 2.0-3.0 PULMONARY EMBOLISM 2.0-3.0 PREVENTION OF SYSTEMIC EMBOLISM FROM: TISSUE HEART VALVES 2.0-3.0 ACUTE MYOCARDIAL INFARCTION 2.0-3.0 VALVULAR HEART DISEASE 2.0-3.0 ATRIAL FIBRILLATION 2.0-3.0 MECHANICAL VALVES(HIGH RISK) 2.5-3.5 RECURRENT MYOCARDIAL INFARCTION 2.5-3.5 ID Date Data Source [id number] 11/02/2019 11:00:00 AM EDT [facility] Name Value Range Interpretation Code Description Data Marylou rce(s) Supporting Document(s) Follow Up [facility] DAZBYw4gOqRUIqBtGWQzIlnBYEzvIEzvHJHuH0I9BDluGt6VXXyemsFnIYWcOt7+QFMtLW5ywe7nVATg gMy [file] /luis carlos+/NQSgYyDn9ntay2dVPnE4LBOenMmt7rRisTah [file] MIUIFJ+property [file] sludge filtration operator/iuruak11pmrNrNYVbANfUDGsEdPvyCdfGlXSSg [file] XKFrohNreg/sa2hWke/vdg7F5/gbxAqSOsHv2IiBmabLOq8j0cJSI35+9/+KQbFei+vp project+tH+P6EVYhJ7 [file] gO5xY48dozfnAj4fibgmiz3tvUV9l6CIY5qc4j/specification consultant [file] YaoFN+Barrie+7rnwMnGF2cwi+jMUynw/7ogJf90gqWaw108bxHCrr1UNp20NfR2CAr8foV29rIH5XF+8kx ZuolocB1oKhSKw3s5beK+dJx3LvuwCWZAKEn1B/mlW n9trT5Yks+m+Jyk23F9IJqdGFeaWZgo0rYHpoU5smG7G39zGTERBEGRmeRkamFHEb0tXsLa0a5pvLfHG wQuXOcvIZZ4BZYaU+aSnxPea8PQqoWDNRSSAM4v392jJdWlDVHX5df8JtTH7lYQj1UTANOEmDDRTG+St TMDTAo/BNpOSUGd2t0WWKgCRCSH1VpHqWTG0NJWkqo tDhuTXrrA4/mCZt5/k9WlOSC2QSg9uxVrEfTPrZTKmAJjgO/PnCiR8CbNB8FUE4o5FNEazpEhMV8UmC6 /R2WKSvq+GSjm7PzEDf+j+E/f77yCU33K3BoYk6yzK5HynWVy6VFPYLpZh74c8sFLDmSTDzDsW6i9Iip wRxfmk3aalasgfcnGXt1XNz7MLTe7jtseJO6xfFSst yxJPcoA8sP6jKEDcsjN9QwAijgjoWEt+/P2UbksgmT7DeKIPdzIlpUPk0ntE2WqRd0vluUkoE1DxD7ia k0d4B8pVauHZCKZm1wBpwCX4AcwOuOekxJuGrcZ58l0TGXVnR8jy7jlgJH+tjHGkxc+eOTKWxArp0uIw J7e2ZKxpdO2rcBnkXtl6yJDNnR1tPy++fpRpEeWvDR dUZqIowzyRloG8OdH9Ni2LFTwT1F6dliGSh/mKXq5fnLmD+Ky//lKVWGiKOF4B72EAboO5UNkSoh2/Circus Supervisor [file] F2ducKxBsn6O8c/RYQkBkl5woIPhpbo665WIMOMcQ871x5A/Wxx4ObTMDn01xJS+zSIPu0slHoLT+trevon oxQgL6GW+GnqaR2d3mmDexljyMPcSMbqgPD4HDK1K1lD/hYMXs+OiEWvrN53kOtpnoTESX3QUO+Y9NJk 9o39L9t+zdToZqcP01+CWvojd02VN7O4wdOCH+CE5j XiTxzwtezBnxXzZ/QscD/kmrliL7Md0qCrD2eou5v11goCmza2NMK6J1bOK4w58QuCK8U7KvvuEYrfrP CWLvg8Zu8t3J7ed4c5ZB/up1LcbuJQAfMihYWJxA5EbKRZ3ur0OZ3gXwZOhQW3hVQ7mtACi+1hwKbMCp Hg3+lOHbx6d71tyRmT4xcqZm7n5c08gtjY90Af3a7X /D7/276LaswSU0mG1U+HLfTU2Jz+cClaEf4GbOOjs9z3MpP4xSOx2ouarXeUWRbA/roHMzBcPy/UYV5c ZGIba+CYjxJczHplYtKHi35EjjOpIhwTHulxFniyBCLdfmHxQzksofE60Z4G4xyYyKZpyuZ58qntSNrd cKxSZQHVR6n6kDyup/BQIYc4XthUXme+jvAFv2D9Ia fsFXLaff57wVXaSu39PutmtBZauiCrlGSL+GEHJZeZqIdeHQLJULYK2HZ1V5ZvqkTbITbs+VatBmahm1 cc0GnA5rq7ols9mIAL1DG/oQ/4DDZmF+ZCKLLFoAJs2V8m7VjUXZFJKbkJj4vC9fIbUfg+UkQgTQ1CnF 3a9lmboOca63exaB6NfHHM4DAbpNOEgX1bENPdm0Bm y8yxXQJWrT4nL/y2QMhp2ZfQFRUf07Ixu6iSxGAYnx8mMri13hRzcue8gRkiNuIOlsUZ6LRVyjejxjOf /YVZf8xfhGg8F860f3wkAlUOpDtrXQMdEB4TX6wM632hpgrNKpsPUmX6UqkQP6czV5YKskb+8d21VPZw pOLKgZbxqT4pS5dYJC3+/Ventilated Rib Fitter+qdHZ6n1aTzHSFxilIm [file] csOmD3qDqYhd3n+z1h+uUfnngjLU1P6aMVD01U+wound care nurse [file] 39p/0xwufmA5QHpQJmBTEAaCE5Y4PCq67N+Bw+ [file] 84YdZ3GlRIYv7fvTbETFuaH+9s+Circus Supervisor+h0OiYEHY4omd [file] hooking machine operator/K++Zn2nQlsDc51aUslH2qFP11in5kZGHfg7IV65O8w8cB1vH3gv/6TviBQbbQIMMN47FKIKO97w5 [file] Uyb8Y347G1rjtj4711/Vrd051GDdb96mztkqdnQw4k 72pZA4B984hYOSmVCvscaPerlMrBRmRyNU01vrYNs4BGVo5A6SFDFv8wx1B18l/eB1e3eDPlRUXxF0Rp hm8OOWVcneHa76w78YX9sAa709UQPMI3h+OaodlFeTNyrDp90O0FjIcjVY02RYwSDSBDe/Le5px8/QKW gofdUHeIP2u+GbG/mzDpIod7lSWrXHAVWckuwp5/Na akIuejM48SUL6TJ1NKWUJYfsio1fNV8k2HET2Qi8lh5ru4zFmuKgJJ53km9zTXiSLarvI7MaIIg9ZJjB jXEznJc/X0iVOtyd45E5zq+rdQJ8dsT6ctT89GfipCsLnosstv+GmU/pO3j/0pDr2ZcpdrLn2m5NPxwY YwrwFIn+TISSUE PACKER/+zU9XJaVYDk33G1+Wp1Z//r/O3wpG5 [file] SOFTWARE ENGINEER/8AnQNVQC9EdAHX361Jxm5dhcfoq6a9zXmsARrwnjWSKS [file] odnAG3A6e/upper sorbian/g0KGP3QeTlFh20jtfxBW99ZLpnMJjSu7GKFcOCVaurRIzxhmC2VuJiQgU3KHxgMWyth [file] 7UqclyxviJ027MWVmeGQUZR/3ysgwttrHqJTvN/window covering sales consultant Q/G8brRojiu+c0XmUw/a45p7qxcytoUwNwP7ZnZPnsvUXKVYRPpZFuMvzc6Hr1xqvlWdRA6hmolZ1Dro EqrsNf0yLqs9aTrgHgwhxYphuVJxnsHBDG1dWIezQFs45vC6ui631s437GPgWDWXiOx6ajq/7WHlttLl kF+XBtgema48E4kB80hOV2cX02Fx1xWb4/ptNEPC5s NSxFyKaPiJyveYDZliFOGeeYF0u5Xmh/F106qzWZEoqtrZR8ZHD5Qj+9V94ZxADLaF2WUr69Oc4Qk8Jj yR6vm3CpQhN9Dma8YKvmGZD9546OPsJkOnRAHnqFxitdLBGqGBD4FJ327Rq3IRmB5Wgm38vCrIlTC/QM X6yfgi+k2/78cYP2eXSIRUH8wrUv4LwyduY4yEIlJc y9bt2tKFH0iXb6EGagd1yHzMi3ODOiuTMCv/JytWO4eZAo/p7LQJu4xUYi5Kyj5A5y+diEWuZW4DdBes 22dAI4kPefrgh2DFkFonUr0Mk1xMQ/gEjapURinjmqhCes62uIw+EdeNJ1XDXkc2xAZgv2/ffew2UZNG J07mmyhTdSv1sVHISvSYYZ6fkCWdCj3PvzFl/RbXwL KmiQbGkVY7dj/p5TqpeM+5oTd9peIu/slelBYDU8GBx0EnYreWbSPYQvLHzEH2xX9cv2/Vw1Im7HxCv4 HmNNnMkCao18pafFbG7PqtfwPnQkBX5SRJDg9Ur+quFAMRcJ4I84bvS4VuSBJ8GYo1AFLJC6Yecd7bDX QX/6G8ABgiCsKWYQxORDi4qV8zPR6rlEj3WwHjgBnH B5nJvehFAygoEaJv9spGq3jeBEjsjq+4a6Kgh6PDWfaZ0Ch0SccYmxT/71HZQBrgBzZBLFcp9Bxgaami Y0ZAL4Dk0X94S1VKea+WxUCbrBIt6UOfZWzTrApkHRvh99uqv8BMdCS7MLPfzDZ+tOlxmMNlSPJ7evsr t/l1ZhQrgexEBq6VeJOeZsNx0UVmH+fkThguXpzhfH aIRCsvEqSNiqywK13DlI6ds69zuOOelQKpo+supoV8F/YfbO9e0488w3x9fbo+xGbwEqYJx11/To9TyY Bl7IcKAAMXA2fv2OoqmQbGiptncPrYufKCKjncgUUwmkwdEwXaPtoVz4nhLoRSHAmul3JmCaGqL5i7aB xaqdXS1gDxtCqLy5QfKdXz9clqmh/QxsgXXXodTkjF fQXQh2su3QKeZ0uMrei4AAXBltoGmBI9IKBGf9RLe6OZKMcApT+VYZYs2y2n+/zmc9hKl8wONxfnZgf5 L2wmijwV3jGS4nZX31zVdpFSlQpUfmftAyXInoAW309l+JcFwpIzu9tXfKH9kYOk+jhV66ABttfZ1zIa BLt2HQR3lBfWRwkJBsKTVLIKvZzlg/1bPbiYr0hrQV 0rOPjMsTKE6aAA26d6E0yX1ApeRGtRsH9FWZj2IHrKRCpZj8K/oBa2JQVnYJHdOxMHxLAkHvxdOl3uzk pX3j3W5u+YfzVkJv9FbQsIfHlyzQTUpSXH9u1LsXsvFkMQmElwBKyVzcUhbst6KsbX2rH+docketing specialist+F2GzTm [file] fsujw19v5/BREAKER ENGINEER+nwFPwzkOh99CLDfF46N+ncxmWB3Axl2gC0RDjEuM2gdl1t2YHTg6IivX9Ao/d39SGO/ [file] dR1Cs1xhhSM8pZzScSrSsPRnDCck+ZbXZcKA7RDBFeGKvaNeh+Circus Supervisor/HzD72WoXz/gIfyc3jxIu8/Cn1Ix [file] ID Date Data Source [id number] 10/23/2019 08:55:00 AM EST [facility] ([facility]) Name Value Range Interpretation Code Description Data Marylou rce(s) Supporting Document(s) Red Blood Count 3.86 10 4.00-5.40 Below low normal [facility] ([facility]) White Blood Count 4.9 10 4.0-10.0 Normal (applies to non-numeri c results) [facility] ([facility]) Mean Corpuscular Volume 98.2 fl 80.0-96.0 Above high normal [facility] ([facility]) Hemoglobin 13.1 g/dL 12.0-15.5 Normal (applies to non-numeric resul ts) [facility] ([facility]) Hematocrit 37.9 % 36.0-47.0 Normal (applies to non-numeric resul ts) [facility] ([facility]) Mean Corpuscular HGB Conc 34.6 g/dL 32.0-36.5 Normal (applies to non-numeric results) [facility] ([facility]) Mean Corpuscular Hemoglobin 33.9 pg 27.0-33.0 Above high normal [facility] ([facility]) Red Cell Distribution Width 13.4 % 11.5-14.5 Norm al (applies to non-numeric results) [facility] ([facility]) Platelet Count, Automated 147 10 150-450 Below low normal [facility] ([facility]) Neutrophils % 50.4 % 36.0-66.0 Normal (applies to non-numeric re sults) [facility] ([facility]) Lymph % 32.2 % 24.0-44.0 Normal (applies to non-numeric resul ts) [facility] ([facility]) Stafford % 8.5 % 0.0-5.0 Above high normal [facility] ([facility]) Eos % 7.5 % 0.0-3.0 Above high normal [facility] ([facility]) Immature Granulocyte % 0.2 % 0-3.0 Normal (applies to non-n umeric results) [facility] ([facility]) Baso % 1.2 % 0.0-1.0 Above high normal [facility] ([facility]) Nucleated Red Blood Cell % 0.0 % 0-0 Normal (applies to n on-numeric results) [facility] ([facility]) Lymph # 1.6 10 1.5-5.0 Normal (applies to non-numeric resul ts) [facility] ([facility]) Stafford # 0.4 10 0.0-0.8 Normal (applies to non-numeric resul ts) [facility] ([facility]) Neutrophils # 2.5 10 1.5-8.5 Normal (applies to non-numeric re sults) [facility] ([facility]) Baso # 0.1 10 0.0-0.2 Normal (applies to non-numeric resul ts) [facility] ([facility]) Eos # 0.4 10 0.0-0.5 Normal (applies to non-numeric resul ts) [facility]) ID Date Data Source [id number] 10/23/2019 08:55:00 AM EST [facility] ([facility]) Name Value Range Interpretation Code Description Data Marylou rce(s) Supporting Document(s) Ammonia [Mass/volume] in Blood 24 uMOL/L N ormal (applies to non-numeric results) [facility] ([facility]) ID Date Data Source [id number] 10/23/2019 08:55:00 AM EST [facility] ([facility]) Name Value Range Interpretation Code Description Data Marylou rce(s) Supporting Document(s) Glucose, Fasting 103 mg/dL 70-100 Above high normal [facility] Glomerular Filtration Rate Laboratory test result Normal (applies to non- numeric results) [facility] ([facility]) <content>Units are mL/min/1.73 m2</content>
<content></content>
<content>Chronic Kidney Disease Staging per NKF:</content>
<content></content>
<content>Stage I & II GFR >=60 Normal to Mildly Decreased</content>
<content>Stage III GFR 30- 59 Moderately Decreased</content>
<content>Stage IV GFR 15-29 Severely Decreased</content>
<content>Stage V GFR <15 Very Little GFR Left</content>
<content>ESRD GFR <15 on PHYSICAL DAMAGE APPRAISER</content>
<content></content> Blood Urea Nitrogen 11 mg/dL 7-18 Normal (applies to non-nume jr results) [facility] ([facility]) Creatinine For GFR 0.60 mg/dL 0.55-1.30 Normal (applies to non -numeric results) [facility]) Sodium Level 146 meq/L 136-145 Above high normal [facility] ([facility]) Potassium Serum 3.7 meq/L 3.5-5.1 Normal (applies to non-numeric results) [facility] ([facility]) Anion Gap 4 meq/L 8-16 Below low normal [facility] ( [facility]) Carbon Dioxide Level 28 meq/L 21-32 Normal (applies to non-num cruz results) [facility] ([facility]) Chloride Level 114 meq/L 98-107 Above high normal [facility] ([facility]) Calcium Level 8.8 mg/dL 8.8-10.2 Normal (applies to non-numeric re sults) [facility] ([facility]) Alt/SGPT 50 U/L 12-78 Normal (applies to non-numeric resul ts) [facility] ([facility]) Ast/Sgot 39 U/L 7-37 [facility] Total Protein 6.9 GM/DL 6.4-8.2 Normal (applies to non-numeric re sults) [facility]) Bilirubin,Total 0.8 mg/dL 0.2-1.0 Normal (applies to non-numeric results) [facility] ([facility]) Alkaline Phosphatase 108 U/L 45-117 Normal (applies to non-num cruz results) [facility] ([facility]) Albumin 3.2 GM/DL 3.2-5.2 Normal (applies to non-numeric resul ts) [facility] ([facility]) Albumin/Globulin Ratio 0.86 1.00-1.93 Below low normal [facility] ([facility]) ID Date Data Source [id number] 10/23/2019 08:55:00 AM EST [facility] ([facility]) Name Value Range Interpretation Code Description Data Marylou rce(s) Supporting Document(s) Vitamin B12 Level 1436 pg/mL Normal (applies to non-numeri c results) [facility] ([facility]) VITAMIN B12 NORMAL RANGE NORMAL 247 - 911 PG/ML INDETERMINATE 211 - 246 PG/ML DEFICIENT LESS THAN 211 PG/ML Folate Laboratory test result Normal (applies to non-n umeric results) [facility] ([facility]) FOLATE NORMAL RANGE NORMAL GREATER THAN 5.4 NG/ML INDETERMINATE 3.4-5.4 NG/ML DEFICIENT LESS THAN 3.4 NG/ML ID Date Data Source [id number] 10/23/2019 08:55:00 AM EST [facility] ([facility]) Name Value Range Interpretation Code Description Data Marylou rce(s) Supporting Document(s) Calcidiol [Mass/volume] in Serum or Plasma 42.7 ng/mL 30.0- 100.0 Normal (applies to non-numeric results) [facility] ([facility]) Ferritin [Mass/volume] in Serum or Plasma 35 ng/mL 8-252 Normal (applies to non- numeric results) [facility] ([facility]) ID Date Data Source [id number] 10/23/2019 08:55:00 AM EST [facility] ([facility]) Name Value Range Interpretation Code Description Data Marylou rce(s) Supporting Document(s) Hematocrit 37.9 % 36.0-47.0 Normal (applies to non-numeric resul ts) [facility] RBC Folate 703 ng/mL 280-791 Normal (applies to non-numeric resul ts) [facility] ID Date Data Source [id number] 09/15/2019 09:50:00 AM [facility] Patient Name: LEROY CALLAHAN : 1955 Sex: F Pt Unit #: [id number] Location:[id number].[facility] Provider: Visit Date/Time: 09/15/19 Primary Insurance: [facility] Secondary Insurance: Self Pay Intake Vital Signs 09/15/19 09:55 Current Height 5 ft 9 in Current Weight 200 lb Weight Measurement Method Stated by Patient BMI 29.5 BP 124/68 Blood Pressure Location Lt brachial Position Sitting Pulse 59 L Pulse Strength Normal Pulse Source Pulse Oximeter Pulse Oximetry (%) 99 Oxygen Delivery Method room air Intake Visit Reasons: Follow Up 6 MONTHS Accompanied by: Self / Same as Patient Is patient in pain?: No Allergies ENVIRONMENTAL Allergy (Intermediate, Uncoded 04/19/14 16:24) RESPRATORY No Known Allergy Allergy (Uncoded 10/20/13 17:00) Medications albuterol sulfate 0.63 mg inhalation anastrozole 1 mg PO DAILY aspirin (Aspir-Low) 81 mg PO DAILY budesonide-formoterol 160-4.5 mcg/actuation (Symbicort) 2 puffs inhalation BID bupropion HCl (Wellbutrin XL) 300 mg PO QAM calcium carbonate (Calcium 500) 500 mg PO QDAY cetirizine (Zyrtec) 10 mg PO DAILY clindamycin phosphate 1% 1 applic topical QDAY cyclobenzaprine 1 tab PO TID diclofenac sodium 1% 2 grams topical QID duloxetine 30 mg PO furosemide (Lasix) 20 mg PO QAM glipizide 5 mg PO QDAY ketoconazole 2% 1 applic topical 2XW magnesium oxide 400 mg PO metformin 1 tab PO BID montelukast (Singulair) 10 mg PO QDAY multivitamin (Daily Vitamin) 1 ea PO oxybutynin chloride ER 5 mg PO DAILY pantoprazole 40 mg PO QDAY propranolol ER 60 mg PO QDAY [Spironolactone 25 mg PO DAILY] terconazole 0.4% 45 grams VG HS 7 days tolterodine ER 4 mg PO Q24H topiramate 100 mg PO BID triamcinolone acetonide 0.1% 1 applic topical QDAY Patient : No PFSH - Derm Medical History Allergic rhinitis anxiety ARTHRITIS Asthma blood transfusion Cancer of left breast chronic kidney disease Cirrhosis of liver Depression Diabetes mellitus, type 2 GERD Hypertension low back pain Sleep apnea VARICIES Surgical History (Updated 02/15/19 @ 11:53 by [employer]) Biopsy of breast Cholecystectomy History of - surgery History of - surgery History of - surgery (07/11/14) History of - surgery History of - surgery History of - surgery History of - surgery History of - surgery History of - surgery History of colonoscopy Status post carpal tunnel release Family History Mother No problems noted. Father No problems noted. Social History Does the Patient have a Healthcare Proxy: Yes Does Patient have a DNR?: No Does Patient have a Living Will?: No Pertinent Past History Pertinent Past History Previous skin cancer: dysplastic nevus (Mid upper back, Mod DN, Punch 10/09/17 by Brandie Bettencourt) Family history of nonmelanoma skin cancer: No Family history with melanoma: Yes (son) Date of last full body scan:: 09/17/18 Dermatology HPI History of Present Illness Details:: GSE HX DN. Family history of MM. Cyst cleared from the buttock with the clindamycin Ketoconazole shampoo helps with the itch but her scalp does not clear. Current Symptoms Chief Complaint:: Stasis Derm Location: lower leg (ALEX) Duration: months Symptoms: itchy Severity of symptoms: mild Current treatment: TMC Treatment response: better Skin care goals for today' visit: None per patient Contacts/family history of similar?: No Dermatology ROS Constituitional Reports system reviewed and no additional complaints, except as documented Psych Reports system reviewed and no additional complaints, except as documented Dermatology Exam Constitutional General appearance: comfortable Orientation Orientation: alert and oriented x 3 Skin Skin exam performed including: hair, scalp, face, eyelids, nose, lips, neck, chest, abdomen, back, right arm, right hand, fingers, left arm, left hand, right leg, right foot, left leg, left foot, toes, buttocks, axillae and genitalia Face and Body: 1. Scar S/P re - excision MOD DN, NER 2. 0.6cm evenly pigmented brown patch, no asymmetry, border or color irregularities noted- Melanocytic Nevus 3. Seborrheic dermatitis Psych Appearance: grossly normal Mental Status: mental status grossly normal Speech and Movement: speech and movement normal Mood: congruent mood Affect: normal affect Attitude: cooperative Thought Process: normal Thought Content: normal Insight: insight good Judgment: judgment good Assessment Plan Assessment Plan (1) Skin cancer screening: Code(s): Z12.83 - Encounter for screening for malignant neoplasm of skin Plan - Georgina Bettencourt: Reviewed sign and symptoms of skin cancer, including ABCDEs of melanoma. Discussed the importance of sunscreen, avoidance of tanning beds and excessive UV exposure. Explained the importance of monthly self skin examinations. Recommend skin cancer screenings on a Q6 months basis. 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 Leave on for 5 minutes before rinsing 1 applic topical 2XW 120 mL8RF B36.0 clindamycin phosphate 1% Apply to buttocks daily 1 applic topical QDAY 60 mL 1RF Follow Up: 6 months GSe Electronically Signed By: <Electronically signed by Georgina Bettencourt > Date/Time Signed: 09/15/19 1243 Name Value Range Interpretation Code Description Data Marylou rce(s) Supporting Document(s) ID Date Data Source [id number] 09/13/2019 09:22:04 AM [facility] Vital SignsBlood Pressure: 129/69 Patient History Medical History:HypertensionDiabetes - Type IIarthritisAsthmaChronic hepatic encephalopathyBreast cancer survivorFamily History:Diabetes (Mother)Heart disease (Father)Hypertension (Mother)Social/Personal History: Smoking Status: former smokerCurrent Problems: DENTAL CARIES EXTENDING INTO PULP (ICD-521.03) (DVT14-I03.63)Teeth extraction (ICD-525.10) (IWF72-V54.499)Breast cancer (ICD- 174.9) (KCG00-R44.919)Current Medications: * SEE SCANNED LIST * ANASTROZOLE Past Medical History:(reviewed - no changes required) HypertensionDiabetes - Type IIa rthritisAsthmaChronic hepatic encephalopathyBreast cancer survivor Dental Chart: Procedures:Type - CDT Code - Description B - (D0120) Periodic oral evaluation - established patient (Performed by Vanesa Gutierres DMD) B - (D1110) Prophylaxis, adult (Performed by Torrie Alvarado) Treatments:Type - CDT Code - Description T - (D7140) Extraction, erupted tooth or exposed root (elevation and/or forceps removal) on Tooth # 18 (Performed by Torrie Alvarado) Chart Alert:HISTORYprophy exam scheduled 05/16/2014panorex taken 08/12/2012 Chart Notes:jlam (Sep 13 2019 12:36PM): [facility](-). CC: none. Reviewed Xrays. Exam: no caries detected. OCS: WNL, IO/ EO completed, No significant hard findings upon clinical exam Pt was cooperative.OHI givenReferral: Add #18 to existing referral due to fractureNV:recallTorrie Alvarado by darrell (09/13/2019 12:36 PM): ; ricardo (Sep 13 2019 10:08AM): [facility] with patient. No problems or concerns today. Adult prophy- handscaled , brushed, flossed, Referred to OS for extraction of # 3, 14, 15 , 18 and 31 for extraction. Gave patient contact information for Dr. Dave and Dr. Doyle-Patient brushes twice/day and flossing regularly. Uses biotene for dry mouth. LT gen marginal biofilm and strace marginal and introproximal calculus on LA.OHI- Advise to brush 2x a day and floss everyday. Sensodyne for sensitivityPatient is cooperative. NV- 6 month recallTorrie Alvarado by ricardo (09/13/2019 10:08 AM): Tooth Notes and Watches:- Tooth 7 Note: Chip presnet, within normal limitsWatson Jennifer MCDERMOTT by valeri (02/09/2019 11:12 AM): Assessment & Plan Medications:SEE SCANNED LISTANASTROZOLEMedication Changes:Added: * SEE SCANNED LISTAllergies:No Known Allergies (updated 09/13/2019) Name Value Range Interpretation Code Description Data Marylou rce(s) Supporting Document(s) ID Date Data Source [id number] 09/07/2019 01:44:00 PM EST [facility] ([facility]) Name Value Range Interpretation Code Description Data Marylou rce(s) Supporting Document(s) Prothrombin Time 14.9 s 11.8-14.0 [facility] ([facility]) Partial Thromboplastin Time 36.1 s 25.0-38.4 [facility] ([facility]) Inr 1.20 [facility] ([facility]) THERAPUTIC HUMAN INR VALUES INDICATIONS NORMAL RANGES PROPHYLAXIS/TREATMENT OF: VENOUS THROMBOSIS 2.0-3.0 PULMONARY EMBOLISM 2.0-3.0 PREVENTION OF SYSTEMIC EMBOLISM FROM: TISSUE HEART VALVES 2.0-3.0 ACUTE MYOCARDIAL INFARCTION 2.0-3.0 VALVULAR HEART DISEASE 2.0-3.0 ATRIAL FIBRILLATION 2.0-3.0 MECHANICAL VALVES(HIGH RISK) 2.5-3.5 RECURRENT MYOCARDIAL INFARCTION 2.5-3.5 ID Date Data Source [id number] 09/07/2019 01:44:00 PM EST [facility] ([facility]) Name Value Range Interpretation Code Description Data Marylou rce(s) Supporting Document(s) Platelets [#/volume] in Blood by Automated count 135 10 150-450 [facility] ([facility]) ID Date Data Source [id number] 09/07/2019 01:44:00 PM EST [facility] ([facility]) Name Value Range Interpretation Code Description Data Marylou rce(s) Supporting Document(s) Prothrombin Time 14.9 s 11.8-14.0 Above high normal [facility] Inr 1.20 Normal (applies to non-numeric resul ts) [facility] THERAPUTIC HUMAN INR VALUES INDICATIONS NORMAL RANGES PROPHYLAXIS/TREATMENT OF: VENOUS THROMBOSIS 2.0-3.0 PULMONARY EMBOLISM 2.0-3.0 PREVENTION OF SYSTEMIC EMBOLISM FROM: TISSUE HEART VALVES 2.0-3.0 ACUTE MYOCARDIAL INFARCTION 2.0-3.0 VALVULAR HEART DISEASE 2.0-3.0 ATRIAL FIBRILLATION 2.0-3.0 MECHANICAL VALVES(HIGH RISK) 2.5-3.5 RECURRENT MYOCARDIAL INFARCTION 2.5-3.5 Partial Thromboplastin Time 36.1 s 25.0-38.4 Norm al (applies to non-numeric results) [facility] ([facility]) ID Date Data Source [id number] 09/07/2019 01:44:00 PM EST [facility] ([facility] Name Value Range Interpretation Code Description Data Marylou rce(s) Supporting Document(s) Platelets [#/volume] in Blood by Automated count 135 10 150-450 Below low normal [facility] ([facility]) ID Date Data Source [id number] 08/24/2019 11:22:00 AM EST [facility] ([facility]) Name Value Range Interpretation Code Description Data Marylou rce(s) Supporting Document(s) Thyroid Stimulating Hormone 1.590 uIU/ML 0.358-3.740 Norm al (applies to non- numeric results) [facility] ([facility]) Free T4 0.61 ng/dL 0.76-1.46 Below low normal [facility] ( [facility]) ID Date Data Source [id number] 08/24/2019 11:22:00 AM EST [facility] ([facility] Name Value Range Interpretation Code Description Data Marylou rce(s) Supporting Document(s) Estimated Average Glucose 154 mg/dL 60-110 Above high normal [facility] ([facility]) Hemoglobin A1c 7.0 % Normal (applies to non-numeric r esults) [facility] ([facility]) REFERENCE RANGES: 4.5-5.6% NORMAL 5.7-6.4% SUGGESTS IMPAIRED GLUCOSE META BOLISM >= 6.5% ABNORMAL ID Date Data Source [id number] 08/24/2019 11:22:00 AM EST [facility] ([facility]) Name Value Range Interpretation Code Description Data Marylou rce(s) Supporting Document(s) White Blood Count 5.4 10 4.0-10.0 Normal (applies to non-numeri c results) [facility] ([facility]) Hemoglobin 13.1 g/dL 12.0-15.5 Normal (applies to non-numeric resul ts) [facility] Red Blood Count 4.04 10 4.00-5.40 Normal (applies to non-numeric results) [facility] ([facility]) Hematocrit 39.5 % 36.0-47.0 Normal (applies to non-numeric resul ts) [facility] Mean Corpuscular Hemoglobin 32.4 pg 27.0-33.0 Norm al (applies to non-numeric results) [facility] ([facility]) Mean Corpuscular Volume 97.8 fl 80.0-96.0 Above high normal [facility] ([facility]) Platelet Count, Automated 129 10 150-450 Below low normal [facility] ([facility]) Mean Corpuscular HGB Conc 33.2 g/dL 32.0-36.5 Normal (applies to non-numeric results) [facility] ([facility]) Red Cell Distribution Width 14.0 % 11.5-14.5 Norm al (applies to non-numeric results) [facility] ([facility]) Lymph % 30.5 % 24.0-44.0 Normal (applies to non-numeric resul ts) [facility] ([facility]) Neutrophils % 51.1 % 36.0-66.0 Normal (applies to non-numeric re sults) [facility] ([facility]) Baso % 0.7 % 0.0-1.0 Normal (applies to non-numeric resul ts) [facility] ([facility]) Stafford % 8.2 % 0.0-5.0 Above high normal [facility] ([facility]) Eos % 9.3 % 0.0-3.0 Above high normal [facility] ([facility]) Immature Granulocyte % 0.2 % 0-3.0 Normal (applies to non-n umeric results) [facility] ([facility]) Nucleated Red Blood Cell % 0.0 % 0-0 Normal (applies to n on-numeric results) [facility] ([facility]) Neutrophils # 2.7 10 1.5-8.5 Normal (applies to non-numeric re sults) [facility] ([facility]) Lymph # 1.6 10 1.5-5.0 Normal (applies to non-numeric resul ts) [facility] ([facility]) Stafford # 0.4 10 0.0-0.8 Normal (applies to non-numeric resul ts) [facility] ([facility]) Eos # 0.5 10 0.0-0.5 Normal (applies to non-numeric resul ts) [facility] ([facility]) Baso # 0.0 10 0.0-0.2 Normal (applies to non-numeric resul ts) [facility] ([facility]) ID Date Data Source [id number] 08/24/2019 11:22:00 AM EST [facility] ([facility] Name Value Range Interpretation Code Description Data Marylou rce(s) Supporting Document(s) Glucose, Fasting 158 mg/dL 70-100 Above high normal [facility] ([facility]) Creatinine For GFR 0.61 mg/dL 0.55-1.30 Normal (applies to non -numeric results) [facility] Blood Urea Nitrogen 10 mg/dL 7-18 Normal (applies to non-nume jr results) [facility] ([facility]) Glomerular Filtration Rate Laboratory test result Normal (applies to non- numeric results) [facility] ([facility]) <content>Units are mL/min/1.73 m2</content>
<content></content>
<content>Chronic Kidney Disease Staging per NKF:</content>
<content></content>
<content>Stage I & II GFR >=60 Normal to Mildly Decreased</content>
<content>Stage III GFR 30- 59 Moderately Decreased</content>
<content>Stage IV GFR 15-29 Severely Decreased</content>
<content>Stage V GFR <15 Very Little GFR Left</content>
<content>ESRD GFR <15 on PHYSICAL DAMAGE APPRAISER</content>
<content></content> Sodium Level 144 meq/L 136-145 Normal (applies to non-numeric res ults) [facility] ([facility]) Potassium Serum 3.9 meq/L 3.5-5.1 Normal (applies to non-numeric results) [facility] ([facility]) Chloride Level 109 meq/L 98-107 Above high normal [facility] ([facility]) Carbon Dioxide Level 30 meq/L 21-32 Normal (applies to non-num cruz results) [facility] ([facility]) Ast/Sgot 51 U/L 7-37 Above high normal [facility] Anion Gap 5 meq/L 8-16 Below low normal [facility] Calcium Level 8.6 mg/dL 8.8-10.2 Below low normal [facility] ([facility]) Bilirubin,Total 0.7 mg/dL 0.2-1.0 Normal (applies to non-numeric results) [facility] ([facility]) Alkaline Phosphatase 130 U/L 45-117 Above high normal [facility] ([facility]) Alt/SGPT 56 U/L 12-78 Normal (applies to non-numeric resul ts) [facility] ([facility]) Albumin 3.2 GM/DL 3.2-5.2 Normal (applies to non-numeric resul ts) [facility] ([facility]) Albumin/Globulin Ratio 0.74 1.00-1.93 Below low normal [facility] ([facility]) Total Protein 7.5 GM/DL 6.4-8.2 Normal (applies to non-numeric re sults) [facility] ([facility]) ID Date Data Source [id number] 08/24/2019 11:22:00 AM EST [facility] ([facility] Name Value Range Interpretation Code Description Data Marylou rce(s) Supporting Document(s) Ammonia [Mass/volume] in Blood 65 uMOL/L Above high zari l [facility] ([facility]) ID Date Data Source [id number] 08/10/2019 05:22:00 PM EST [facility] ([facility] Name Value Range Interpretation Code Description Data Marylou rce(s) Supporting Document(s) Ethanol [Mass/volume] in Serum or Plasma 0.005 % 0.000-0 .010 Normal (applies to non-numeric results) [facility] ([facility]) Salicylates [Mass/volume] in Serum or Plasma Laboratory test res ult 5.0-30.0 Below low normal [facility] ([facility]) Acetaminophen [Mass/volume] in Serum or Plasma Laboratory test r esult 10.0-30.0 Below low normal [facility] ([facility]) Thyrotropin [Units/volume] in Serum or Plasma 1.740 uIU/ML 0. 358-3.740 Normal (applies to non-numeric results) [facility] ([facility]) ID Date Data Source [id number] 08/10/2019 05:22:00 PM EST [facility] ([facility] Name Value Range Interpretation Code Description Data Marylou rce(s) Supporting Document(s) Glucose, Fasting 160 mg/dL 70-100 Above high normal [facility] ([facility]) Blood Urea Nitrogen 12 mg/dL 7-18 Normal (applies to non-nume jr results) [facility] ([facility]) Glomerular Filtration Rate Laboratory test result Normal (applies to non- numeric results) [facility]) <content>Units are mL/min/1.73 m2</content>
<content></content>
<content>Chronic Kidney Disease Staging per NKF:</content>
<content></content>
<content>Stage I & II GFR >=60 Normal to Mildly Decreased</content>
<content>Stage III GFR 30- 59 Moderately Decreased</content>
<content>Stage IV GFR 15-29 Severely Decreased</content>
<content>Stage V GFR <15 Very Little GFR Left</content>
<content>ESRD GFR <15 on PHYSICAL DAMAGE APPRAISER</content>
<content></content> Creatinine For GFR 0.68 mg/dL 0.55-1.30 Normal (applies to non -numeric results) [facility] ([facility]) Sodium Level 144 meq/L 136-145 Normal (applies to non-numeric res ults) [facility] ([facility]) Potassium Serum 4.0 meq/L 3.5-5.1 Normal (applies to non-numeric results) [facility] ([facility]) This specimen has an elevated potassium level but there is NO visible hemolysis noted. Chloride Level 112 meq/L 98-107 Above high normal [facility] ([facility]) Anion Gap 7 meq/L 8-16 Below low normal [facility] ( [facility]) Carbon Dioxide Level 25 meq/L 21-32 Normal (applies to non-num cruz results) [facility] ([facility]) Calcium Level 9.1 mg/dL 8.8-10.2 Normal (applies to non-numeric re sults) [facility] ([facility]) ID Date Data Source [id number] 08/10/2019 05:22:00 PM EST [facility] ([facility] Name Value Range Interpretation Code Description Data Marylou rce(s) Supporting Document(s) Alt/SGPT 55 U/L 12-78 Normal (applies to non-numeric resul ts) [facility] ([facility]) Ast/Sgot 54 U/L 7-37 Above high normal [facility] ([facility]) Alkaline Phosphatase 138 U/L 45-117 Above high normal [facility] ([facility]) Bilirubin,Total 0.7 mg/dL 0.2-1.0 Normal (applies to non-numeric results) [facility] ([facility]) Bilirubin,Direct 0.3 mg/dL 0.0-0.2 Above high normal [facility] ([facility]) Albumin 3.4 GM/DL 3.2-5.2 Normal (applies to non-numeric resul ts) [facility] ([facility]) Total Protein 7.9 GM/DL 6.4-8.2 Normal (applies to non-numeric re sults) [facility] ([facility]) Albumin/Globulin Ratio 0.76 1.00-1.93 Below low normal [facility] ID Date Data Source [id number] 08/10/2019 05:22:00 PM EST [facility] ([facility] Name Value Range Interpretation Code Description Data Marylou rce(s) Supporting Document(s) CPK Creatine Phosphokinase 62 U/L 26-192 Zari l (applies to non-numeric results) [facility] ([facility]) Troponin I Laboratory test result Normal (applies to non-n umeric results) [facility] ([facility]) <content>Troponin I Reference Interval f or Siemens [place] LOCI:</content>
<content></content>
<content>99th Percentile= 0.00-0.045 ng/ml</content>
<content></content>
<content>Risk Stratification:</content>
<content><= 0.10 ng/ml Decreased Risk for Adverse Clinical</content>
<content>Events.</content>
<content>0.10-1.50 ng/ml Increased Risk for Adverse Clinical</content>
<content>Events. Evaluation of additional</content>
<content>criterion and/or repeat testing in 2-6</content>
<content>hours is suggested to rule out myocardial</content>
<content>damage.</content>
<content>>= 1.50 ng/ml Indicative of Myocardial Injury.</content>
<content></content> MB/CK Relative Index 2.10 Normal (applies to non-num cruz results) [facility]) <content>DIAGNOSIS CRITERIA</content>
<content>MMB ng/ml Relative Index (RI)</content>
<content>NON-AMI < or = 5 N/A</content>
<content>GALINDO ZONE > 5 < or = 4</content>
<content>AMI > 5 > 4</content>
<content></content> CK-MB Value Mass 1.3 ng/mL Normal (applies to non-numeric results) [facility]) ID Date Data Source [id number] 08/10/2019 05:22:00 PM EST [facility] ([facility]) Name Value Range Interpretation Code Description Data Marylou rce(s) Supporting Document(s) Lactate [Mass/volume] in Serum or Plasma 1.5 mmol/L 0.4-2.0 Normal (applies to non-numeric results) [facility]) Y/N query for Sepsis Lactate Rule: Y Ammonia [Mass/volume] in Blood 129 uMOL/L Above high zari l [facility]) ID Date Data Source [id number] 08/10/2019 05:22:00 PM EST [facility] ([facility] Name Value Range Interpretation Code Description Data Marylou rce(s) Supporting Document(s) White Blood Count 5.9 10 4.0-10.0 Normal (applies to non-numeri c results) [facility] ([facility]) Red Blood Count 4.39 10 4.00-5.40 Normal (applies to non-numeric results) [facility]) Hematocrit 42.3 % 36.0-47.0 Normal (applies to non-numeric resul ts) [facility] ([facility]) Hemoglobin 14.3 g/dL 12.0-15.5 Normal (applies to non-numeric resul ts) [facility] ([facility]) Mean Corpuscular Volume 96.4 fl 80.0-96.0 Above high normal [facility] ([facility]) Mean Corpuscular Hemoglobin 32.6 pg 27.0-33.0 Norm al (applies to non-numeric results) [facility] ([facility]) Mean Corpuscular HGB Conc 33.8 g/dL 32.0-36.5 Normal (applies to non-numeric results) [facility] ([facility]) Red Cell Distribution Width 13.7 % 11.5-14.5 Norm al (applies to non-numeric results) [facility] ([facility]) Platelet Count, Automated 186 10 150-450 Normal (applies to non-numeric results) [facility] ([facility]) Neutrophils % 53.0 % 36.0-66.0 Normal (applies to non-numeric re sults) [facility] ([facility]) Lymph % 27.8 % 24.0-44.0 Normal (applies to non-numeric resul ts) [facility] ([facility]) Stafford % 8.9 % 0.0-5.0 Above high normal [facility] ([facility]) Eos % 8.8 % 0.0-3.0 Above high normal [facility] ([facility]) Baso % 1.2 % 0.0-1.0 Above high normal [facility] ([facility]) Immature Granulocyte % 0.3 % 0-3.0 Normal (applies to non-n umeric results) [facility] ([facility]) Nucleated Red Blood Cell % 0.0 % 0-0 Normal (applies to n on-numeric results) [facility] ([facility]) Neutrophils # 3.2 10 1.5-8.5 Normal (applies to non-numeric re sults) [facility] ([facility]) Lymph # 1.7 10 1.5-5.0 Normal (applies to non-numeric resul ts) [facility] ([facility]) Stafford # 0.5 10 0.0-0.8 Normal (applies to non-numeric resul ts) [facility] ([facility]) Eos # 0.5 10 0.0-0.5 Normal (applies to non-numeric resul ts) [facility] ([facility]) Baso # 0.1 10 0.0-0.2 Normal (applies to non-numeric resul ts) [facility] ([facility]) ID Date Data Source [id number] 07/24/2019 01:24:00 PM EST [facility] ([facility] Name Value Range Interpretation Code Description Data Marylou rce(s) Supporting Document(s) Appearance, Urine RFX HAZY Normal (applies to non-nu meric results) [facility] ([facility]) Color, Urine RFX RED Above high normal [facility] ([facility]) Protein, Urine Auto RFX 2+ mg/dL Above high normal [facility] ([facility]) Specific Philo Ur Auto RFX 1.010 1.002-1.035 Nor mal (applies to non-numeric results) [facility] ([facility]) PH,Urine RFX 6.0 units 5.0-9.0 Normal (applies to non-numeric res ults) [facility]) Glucose, Urine (Ua) Auto RFX NEGATIVE mg/dL Nor mal (applies to non-numeric results) [facility] ([facility]) Ketone, Urine Auto RFX NEGATIVE mg/dL Normal (applies to non-numeric results) [facility]) Urobilinogen, Urine Auto RFX 0.2 mg/dL 0.0-2.0 Nor mal (applies to non-numeric results) [facility] ([facility]) Nitrite, Urine Auto RFX NEGATIVE Normal (applies to non- numeric results) [facility]) Bilirubin, Urine Auto RFX NEGATIVE Normal (applies to no n-numeric results) [facility] ([facility]) Leukocyte Esterase Ur Auto RFX 3+ Above high zari l [facility] ([facility]) Blood, Urine Blood RFX 3+ Above high normal [facility] ([facility]) WBC, Urine Auto RFX 49 /HPF 0-3 Above high normal [facility] ([facility]) RBC, Urine Auto RFX TNTC /HPF 0-3 Above high normal [facility] ([facility]) Bacteria, Urine Auto RFX 1+ Above high normal [facility] Squam Epithelial Cell Ur Aurfx 0 /HPF 0-6 N ormal (applies to non-numeric results) [facility] ([facility]) Hyaline Cast, Urine Auto RFX 0 /LPF 0-1 Normal (appl ies to non-numeric results) [facility] ([facility]) Mucus, Urine RFX SMALL Normal (applies to non-numeric results) [facility] ([facility]) ID Date Data Source [id number] 07/24/2019 01:24:00 PM EST [facility] ([facility]) Name Value Range Interpretation Code Description Data Marylou rce(s) Supporting Document(s) Reflex Urine Culture FULL REPORT IN L <SEE NOTE> Normal (applies to non- numeric results) [facility] ([facility]) FULL REPORT IN LAB NOTES (eCW and [facility] ). NO GROWTH CLINICAL SIGNIFICANCE 2 OR MORE ORGANISMS ID Date Data Source [id number] 07/24/2019 01:19:00 PM EST [facility] ([facility]) Name Value Range Interpretation Code Description Data Marylou rce(s) Supporting Document(s) Red Blood Count 3.83 10 4.00-5.40 Below low normal [facility] ([facility]) White Blood Count 4.4 10 4.0-10.0 Normal (applies to non-numeri c results) [facility]) Hemoglobin 12.6 g/dL 12.0-15.5 Normal (applies to non-numeric resul ts) [facility] ([facility]) Hematocrit 36.7 % 36.0-47.0 Normal (applies to non-numeric resul ts) [facility] ([facility]) Mean Corpuscular Volume 95.8 fl 80.0-96.0 Normal ( applies to non-numeric results) [facility] ([facility]) Mean Corpuscular HGB Conc 34.3 g/dL 32.0-36.5 Normal (applies to non-numeric results) [facility] ([facility]) Mean Corpuscular Hemoglobin 32.9 pg 27.0-33.0 Norm al (applies to non-numeric results) [facility] ([facility]) Red Cell Distribution Width 13.2 % 11.5-14.5 Norm al (applies to non-numeric results) [facility] ([facility]) Neutrophils % 41.2 % 36.0-66.0 Normal (applies to non-numeric re sults) [facility] ([facility]) Platelet Count, Automated 147 10 150-450 Below low normal [facility] ([facility]) Lymph % 34.0 % 24.0-44.0 Normal (applies to non-numeric resul ts) [facility] ([facility]) Stafford % 10.6 % 0.0-5.0 Above high normal [facility] ([facility]) Baso % 1.4 % 0.0-1.0 Above high normal [facility] ([facility]) Immature Granulocyte % 0.2 % 0-3.0 Normal (applies to non-n umeric results) [facility] ([facility]) Eos % 12.6 % 0.0-3.0 Above high normal [facility] ([facility]) Neutrophils # 1.8 10 1.5-8.5 Normal (applies to non-numeric re sults) [facility] ([facility]) Nucleated Red Blood Cell % 0.0 % 0-0 Normal (applies to n on-numeric results) [facility] ([facility]) Stafford # 0.5 10 0.0-0.8 Normal (applies to non-numeric resul ts) [facility] ([facility]) Eos # 0.6 10 0.0-0.5 Above high normal [facility] ([facility]) Lymph # 1.5 10 1.5-5.0 Normal (applies to non-numeric resul ts) [facility] ([facility]) Baso # 0.1 10 0.0-0.2 Normal (applies to non-numeric resul ts) [facility] ([facility]) ID Date Data Source [id number] 07/24/2019 01:19:00 PM EST [facility] ([facility]) Name Value Range Interpretation Code Description Data Marylou rce(s) Supporting Document(s) Ammonia [Mass/volume] in Blood 61 uMOL/L Above high zari l [facility] ([facility]) ID Date Data Source [id number] 07/24/2019 01:19:00 PM EST [facility] ([facility]) Name Value Range Interpretation Code Description Data Marylou rce(s) Supporting Document(s) Glucose, Fasting 123 mg/dL 70-100 Above high normal [facility] ([facility]) Blood Urea Nitrogen 5 mg/dL 7-18 Below low normal [facility] ([facility]) Creatinine For GFR 0.60 mg/dL 0.55-1.30 Normal (applies to non -numeric results) [facility] ([facility]) Glomerular Filtration Rate > 60.0 Normal (applies to n on-numeric results) [facility] ([facility]) <content>Units are mL/min/1.73 m2</content>
<content></content>
<content>Chronic Kidney Disease Staging per NKF:</content>
<content></content>
<content>Stage I & II GFR >=60 Normal to Mildly Decreased</content>
<content>Stage III GFR 30- 59 Moderately Decreased</content>
<content>Stage IV GFR 15-29 Severely Decreased</content>
<content>Stage V GFR <15 Very Little GFR Left</content>
<content>ESRD GFR <15 on PHYSICAL DAMAGE APPRAISER</content>
<content></content> Potassium Serum 3.9 meq/L 3.5-5.1 Normal (applies to non-numeric results) [facility] ([facility]) Chloride Level 113 meq/L 98-107 Above high normal [facility] ([facility]) Sodium Level 145 meq/L 136-145 Normal (applies to non-numeric res ults) [facility] ([facility]) Calcium Level 8.8 mg/dL 8.8-10.2 Normal (applies to non-numeric re sults) [facility] ([facility]) Anion Gap 4 meq/L 8-16 Below low normal [facility] ( [facility]) Carbon Dioxide Level 28 meq/L 21-32 Normal (applies to non-num cruz results) [facility] ([facility]) Alt/SGPT 42 U/L 12-78 Normal (applies to non-numeric resul ts) [facility] ([facility]) Ast/Sgot 46 U/L 7-37 Above high normal [facility] ([facility]) Bilirubin,Total 0.9 mg/dL 0.2-1.0 Normal (applies to non-numeric results) [facility] ([facility]) Alkaline Phosphatase 124 U/L 45-117 Above high normal [facility] ([facility]) Albumin/Globulin Ratio 0.80 1.00-1.93 Below low normal [facility] ([facility]) Albumin 3.3 GM/DL 3.2-5.2 Normal (applies to non-numeric resul ts) [facility] ([facility]) Total Protein 7.4 GM/DL 6.4-8.2 Normal (applies to non-numeric re sults) [facility] ([facility]) ID Date Data Source [id number] 07/24/2019 01:19:00 PM EST [facility] ([facility] Name Value Range Interpretation Code Description Data Marylou rce(s) Supporting Document(s) CK-MB Value Mass 1.1 ng/mL Normal (applies to non-numeric results) [facility] ([facility]) CPK Creatine Phosphokinase 62 U/L 26-192 Zari l (applies to non-numeric results) [facility] ([facility]) Troponin I < 0.02 ng/mL Normal (applies to non-numeric res ults) [facility]) <content>Troponin I Reference Interval f or Siemens [place] LOCI:</content>
<content></content>
<content>99th Percentile= 0.00-0.045 ng/ml</content>
<content></content>
<content>Risk Stratification:</content>
<content><= 0.10 ng/ml Decreased Risk for Adverse Clinical</content>
<content>Events.</content>
<content>0.10-1.50 ng/ml Increased Risk for Adverse Clinical</content>
<content>Events. Evaluation of additional</content>
<content>criterion and/or repeat testing in 2-6</content>
<content>hours is suggested to rule out myocardial</content>
<content>damage.</content>
<content>>= 1.50 ng/ml Indicative of Myocardial Injury.</content>
<content></content> MB/CK Relative Index 1.77 Normal (applies to non-num cruz results) [facility]) <content>DIAGNOSIS CRITERIA</content>
<content>MMB ng/ml Relative Index (RI)</content>
<content>NON-AMI < or = 5 N/A</content>
<content>GALINDO ZONE > 5 < or = 4</content>
<content>AMI > 5 > 4</content>
<content></content> ID Date Data Source [id number] 07/24/2019 01:19:00 PM EST [facility] Name Value Range Interpretation Code Description Data Marylou rce(s) Supporting Document(s) C reactive protein [Mass/volume] in Serum or Plasma by High sensitivity method 0.30 mg/dL 0.00-0.30 Normal (applies to non-numeric results) [facility] ([facility]) ID Date Data Source [id number] 07/20/2019 10:32:00 AM EST [facility] ([facility]) Name Value Range Interpretation Code Description Data Marylou rce(s) Supporting Document(s) Hemoglobin A1c 5.8 % Normal (applies to non-numeric r esults) [facility] ([facility]) REFERENCE RANGES: 4.5-5.6% NORMAL 5.7-6.4% SUGGESTS IMPAIRED GLUCOSE META BOLISM >= 6.5% ABNORMAL Estimated Average Glucose 120 mg/dL 60-110 Above high normal [facility] ([facility]) ID Date Data Source [id number] 07/20/2019 10:20:00 AM EST [facility] ([facility]) Name Value Range Interpretation Code Description Data Marylou rce(s) Supporting Document(s) White Blood Count 4.2 10 4.0-10.0 Normal (applies to non-numeri c results) [facility] ([facility]) Hemoglobin 12.2 g/dL 12.0-15.5 Normal (applies to non-numeric resul ts) [facility] ([facility]) Red Blood Count 3.66 10 4.00-5.40 Below low normal [facility] ([facility]) Hematocrit 35.5 % 36.0-47.0 Below low normal [facility] ( [facility]) Mean Corpuscular Volume 97.0 fl 80.0-96.0 Above high normal [facility] ([facility]) Mean Corpuscular Hemoglobin 33.3 pg 27.0-33.0 Above high normal [facility] ([facility]) Mean Corpuscular HGB Conc 34.4 g/dL 32.0-36.5 Normal (applies to non-numeric results) [facility] ([facility]) Red Cell Distribution Width 13.2 % 11.5-14.5 Norm al (applies to non-numeric results) [facility] ([facility]) Nucleated Red Blood Cell % 0.0 % 0-0 Normal (applies to n on-numeric results) [facility] ([facility]) Platelet Count, Automated 123 10 150-450 Below low normal [facility] ([facility]) ID Date Data Source [id number] 07/20/2019 10:20:00 AM EST [facility] ([facility]) Name Value Range Interpretation Code Description Data Marylou rce(s) Supporting Document(s) Lymph % 29.3 % 24.0-44.0 Normal (applies to non-numeric resul ts) [facility] ([facility]) Neutrophils % 48.6 % 36.0-66.0 Normal (applies to non-numeric re sults) [facility] ([facility]) Baso % 1.0 % 0.0-1.0 Normal (applies to non-numeric resul ts) [facility] ([facility]) Stafford % 9.4 % 0.0-5.0 Above high normal [facility] ([facility]) Eos % 11.5 % 0.0-3.0 Above high normal [facility] ([facility]) Neutrophils # 2.0 10 1.5-8.5 Normal (applies to non-numeric re sults) [facility] ([facility]) Lymph # 1.2 10 1.5-5.0 Below low normal [facility] ( [facility]) Immature Granulocyte % 0.2 % 0-3.0 Normal (applies to non-n umeric results) [facility] ([facility]) Baso # 0.0 10 0.0-0.2 Normal (applies to non-numeric resul ts) [facility] ([facility]) Eos # 0.5 10 0.0-0.5 Normal (applies to non-numeric resul ts) [facility] ([facility]) Stafford # 0.4 10 0.0-0.8 Normal (applies to non-numeric resul ts) [facility] ([facility]) ID Date Data Source [id number] 07/20/2019 10:20:00 AM EST [facility] ([facility] Name Value Range Interpretation Code Description Data Marylou rce(s) Supporting Document(s) Glucose, Fasting 92 mg/dL 70-100 Normal (applies to non-numeric results) [facility] ([facility]) Creatinine For GFR 0.59 mg/dL 0.55-1.30 Normal (applies to non -numeric results) [facility] ([facility]) Glomerular Filtration Rate > 60.0 Normal (applies to n on-numeric results) [facility] ([facility]) <content>Units are mL/min/1.73 m2</content>
<content></content>
<content>Chronic Kidney Disease Staging per NKF:</content>
<content></content>
<content>Stage I & II GFR >=60 Normal to Mildly Decreased</content>
<content>Stage III GFR 30- 59 Moderately Decreased</content>
<content>Stage IV GFR 15-29 Severely Decreased</content>
<content>Stage V GFR <15 Very Little GFR Left</content>
<content>ESRD GFR <15 on PHYSICAL DAMAGE APPRAISER</content>
<content></content> Blood Urea Nitrogen 9 mg/dL 7-18 Normal (applies to non-nume jr results) [facility] ([facility]) Sodium Level 145 meq/L 136-145 Normal (applies to non-numeric res ults) [facility] ([facility]) Potassium Serum 3.7 meq/L 3.5-5.1 Normal (applies to non-numeric results) [facility] ([facility]) Carbon Dioxide Level 27 meq/L 21-32 Normal (applies to non-num cruz results) [facility] ([facility]) Chloride Level 112 meq/L 98-107 Above high normal [facility] ([facility]) Anion Gap 6 meq/L 8-16 Below low normal [facility] ( [facility]) Ast/Sgot 37 U/L 7-37 Normal (applies to non-numeric resul ts) [facility] ([facility]) Alt/SGPT 37 U/L 12-78 Normal (applies to non-numeric resul ts) [facility] ([facility]) Calcium Level 8.2 mg/dL 8.8-10.2 Below low normal [facility] ([facility]) Alkaline Phosphatase 114 U/L 45-117 Normal (applies to non-num cruz results) [facility] ([facility]) Bilirubin,Total 0.7 mg/dL 0.2-1.0 Normal (applies to non-numeric results) [facility] ([facility]) Albumin 2.9 GM/DL 3.2-5.2 Below low normal [facility] Total Protein 6.6 GM/DL 6.4-8.2 Normal (applies to non-numeric re sults) [facility] ([facility]) Albumin/Globulin Ratio 0.78 1.00-1.93 Below low normal [facility] ID Date Data Source [id number] 07/20/2019 10:20:00 AM EST [facility] ([facility]) Name Value Range Interpretation Code Description Data Marylou rce(s) Supporting Document(s) Magnesium [Mass/volume] in Serum or Plasma 1.7 mg/dL 1.8-2.4 Belo w low normal [facility]) Phosphate [Moles/volume] in Serum or Plasma 3.1 mg/dL 2.5- 4.9 Normal (applies to non-numeric results) [facility] ([facility]) ID Date Data Source [id number] 07/20/2019 10:20:00 AM EST [facility] ([facility] Name Value Range Interpretation Code Description Data Marylou rce(s) Supporting Document(s) Iron (Fe) 81 ug/dL 50-170 Normal (applies to non-numeric resul ts) [facility] ([facility]) Total Iron Binding Capacity 255 ug/dL 250-450 Norm al (applies to non-numeric results) [facility] ([facility]) Percent Saturation 31.8 % 13.2-45.0 Normal (applies to non-numer ic results) [facility] ([facility]) ID Date Data Source [id number] 07/20/2019 10:20:00 AM EST [facility] ([facility] Name Value Range Interpretation Code Description Data Marylou rce(s) Supporting Document(s) Cobalamin (Vitamin B12) [Mass/volume] in Serum or Plasma 768 pg/ mL 247-911 Normal (applies to non-numeric results) [facility]) VITAMIN B12 NORMAL RANGE NORMAL 247 - 911 PG/ML INDETERMINATE 211 - 246 PG/ML DEFICIENT LESS THAN 211 PG/ML Calcidiol [Mass/volume] in Serum or Plasma 35.1 ng/mL 30.0- 100.0 Normal (applies to non-numeric results) [facility] ([facility]) Ferritin [Mass/volume] in Serum or Plasma 51 ng/mL 8-252 Normal (applies to non- numeric results) [facility] ([facility]) ID Date Data Source [id number] 07/20/2019 10:20:00 AM EST [facility] ([facility] Name Value Range Interpretation Code Description Data Marylou rce(s) Supporting Document(s) Hematocrit 35.5 % 36.0-47.0 Below low normal [facility] ( [facility]) RBC Folate 627 ng/mL 280-791 Normal (applies to non-numeric resul ts) [facility] ([facility]) ID Date Data Source [id number] 07/14/2019 11:27:00 AM EST [facility] ([facility] Name Value Range Interpretation Code Description Data Marylou rce(s) Supporting Document(s) Color Brown Normal (applies to non-numeric resul ts) [facility] ([facility]) Weight 235.0 mg Normal (applies to non-numeric resul ts) [facility] ([facility]) Size (SEE NOTE) mm Normal (applies to non-numeric re sults) [facility] ([facility]) Specimen received as fragments. Composition (SEE NOTE) Normal (applies to non-numeric resu lts) [facility] ([facility]) . Percentage (Represents the % composition) CA Oxalate Dihy 3 % Normal (applies to non-numeric results) [facility] ([facility]) CA Phosphate 5 % Normal (applies to non-numeric res ults) [facility] ([facility]) MG Leonardo Phos TNP Normal (applies to non-numeric re sults) [facility] ([facility]) Ca Ox Monohydrate 92 % Normal (applies to non-numeri c results) [facility] ([facility]) Uric Acid TNP Normal (applies to non-numeric resul ts) [facility] ([facility]) Ua Dihydrate TNP Normal (applies to non-numeric res ults) [facility] ([facility]) Na Acid Urate TNP Normal (applies to non-numeric re sults) [facility] ([facility]) Amm Acid Urate TNP Normal (applies to non-numeric r esults) [facility] ([facility]) Cholesterol TNP Normal (applies to non-numeric resu lts) [facility] ([facility]) CA [place] Phos TNP Normal (applies to non-numeric re sults) [facility] ([facility]) Cystine TNP Normal (applies to non-numeric resul ts) [facility] ([facility]) CA Bilirubinate TNP Normal (applies to non-numeric results) [facility] ([facility]) CA Carbonate TNP Normal (applies to non-numeric res ults) [facility] ([facility]) Triamterene TNP Normal (applies to non-numeric resu lts) [facility] ([facility]) Dried Blood TNP Normal (applies to non-numeric resu lts) [facility] ([facility]) Newberyite TNP Normal (applies to non-numeric resul ts) [facility] ([facility]) Nidus No Nidus visuali <SEE NOTE> Normal (applies to non-numeric results) [facility] ([facility]) No Nidus visualized Cell Material TNP Normal (applies to non-numeric re sults) [facility] ([facility]) Surface Crystal TNP Normal (applies to non-numeric results) [facility] ([facility]) Shell TNP Normal (applies to non-numeric resul ts) [facility] ([facility] [facility]) Comment Note: Normal (applies to non-numeric resul ts) MEDENT ([facility]) Please do not submit specimens on Q-Tips , in tape, on filters, or in liquids such as blood, urine or formalin. This may cause unnecessary biohazards, erroneous results and/or delay in the processing of the specimen. Comment TNP Normal (applies to non-numeric resul ts) MEDENT ([facility]) Comment (SEE NOTE) Normal (applies to non-numeric resul ts) MEDENT ([facility]) . Physician questions regarding Calculi Analysis contact [facility] at: [phone]. Please Note: (SEE NOTE) Normal (applies to non-numeric res ults) MEDENT ([facility]) . Calculi report without photograph will follow via computer, mail, or crown attacher delivery. Disclaimer (SEE NOTE) Normal (applies to non-numeric resul ts) MEDENT ([facility]) . This test was developed and its performance characteristics determined by [employer]. It has not been cleared or approved by the Food and Drug Administration. Performed at: [facility] [id number] Director Government: Shlomo Kincaid MD, Phone: [phone] ID Date Data Source [id number] 07/14/2019 09:41:00 AM EST MEDENT ([facility]) Name Value Range Interpretation Code Description Data Marylou rce(s) Supporting Document(s) Glucose [Mass/volume] in Capillary blood by Glucometer 111 mg/dL 80-115 Normal (applies to non-numeric results) MEDENT ([facility]) Doctor Notified Procedure Social History Code Duration Value Status Description Data Source(s ) Smoking 08/20/2020 12:00:00 AM EST Former Smoker completed Former Smoker eCW1 ([facility]) Alcohol intake 08/03/2020 12:00:00 AM EST Yes completed Smoking 08/03/2020 12:00:00 AM EST Former smoker completed Former smoker Smoking 08/02/2020 12:00:00 AM EST Patient is a former smoker completed Patient is a former smoker [facility] ([facility]) Alcohol intake 03/09/2020 12:00:00 AM EDT Current drinker of al cohol (finding) completed Current drinker of alcohol (finding) [facility] Smoking 03/09/2020 12:00:00 AM EDT Former smoker completed Former smoker [facility] Vital Signs ID Date Data Source UNK Name Value Range Interpretation Code Description Data Source(s) Diastolic blood pressure 68 mm[Hg] 68 mm[Hg] eCW1 ([facility]) Systolic blood pressure 116 mm[Hg] 116 mm[Hg] e CW1 ([facility]) Body temperature [degF] eCW1 ([facility]) Respiratory rate 18 /min 18 /min eCW1 ([facility]) Heart rate 86 /min 86 /min eCW1 ([facility]) Body mass index (BMI) [Ratio] 30.90 kg/m2 30.90 kg/m2 W1 ([facility]) Body height 70 [in_i] 70 [in_i] eCW1 ([facility]) Body weight 215.4 [lb_av] 215.4 [lb_av] eCW1 ([facility]) Oxygen saturation in Arterial blood by Pulse oximetry 98 % 98 % Body mass index (BMI) [Ratio] 31.75 kg/m2 31.75 kg/m2 Body weight 97.523 kg 97.523 kg Body height 175.3 cm 175.3 cm Heart rate 72 /min 72 /min [facility] Diastolic blood pressure 60 mm[Hg] 60 mm[Hg] Systolic blood pressure 128 mm[Hg] 128 mm[Hg] [facility] [place] body weight 130 [lb_av] 130 [lb_av] MEDEN T ([facility]) Oxygen saturation in Arterial blood by Pulse oximetry 96 % 96 % MEDENT ([facility]) Body temperature 97.1 [degF] 97.1 [degF] MEDENT ([facility]) Respiratory rate 18 /min 18 /min MEDENT ( [facility]) Heart rate 75 /min 75 /min MEDENT ([facility]) Body mass index (BMI) [Ratio] 34.4 kg/m2 34.4 k g/m2 MEDENT ([facility]) Body weight 215.50 [lb_av] 215.50 [lb_av] MEDEN T ([facility]) Body height 66.4 [in_i] 66.4 [in_i] MEDENT ([facility]) 5'6.40" Diastolic blood pressure 72 mm[Hg] 72 mm[Hg] MEDENT ([facility]) Systolic blood pressure 136 mm[Hg] 136 mm[Hg] M EDENT ([facility]) Body temperature 97.1 [degF] 97.1 [degF] MEDENT ([facility] [place] body weight 130 [lb_av] 130 [lb_av] MEDEN T ([facility]) Oxygen saturation in Arterial blood by Pulse oximetry 97 % 97 % MEDENT ([facility]) Body temperature 97.4 [degF] 97.4 [degF] MEDENT ([facility]) Respiratory rate 18 /min 18 /min MEDENT ( [facility]) Heart rate 61 /min 61 /min [facility] ([facility]) Body mass index (BMI) [Ratio] 35.0 kg/m2 35.0 k g/m2 MEDENT ([facility]) Body weight 219.50 [lb_av] 219.50 [lb_av] MEDEN T ([facility]) Body height 66.4 [in_i] 66.4 [in_i] MEDENT ([facility]) 5'6.40" Diastolic blood pressure 74 mm[Hg] 74 mm[Hg] [facility] ([facility]) Systolic blood pressure 126 mm[Hg] 126 mm[Hg] M [facility] ([facility]) Body temperature 97.1 [degF] 97.1 [degF] [facility] Body weight 100.246 kg 100.246 kg [facility] ([facility], ) [place] body weight 140 [lb_av] 140 [lb_av] MEDEN T ([facility], ) Body mass index (BMI) [Ratio] 33.1 kg/m2 33.1 k g/m2 [facility] ([facility], ) Body weight 221.00 [lb_av] 221.00 [lb_av] MEDEN T ([facility], ) Body height 68.5 [in_i] 68.5 [in_i] [facility] ([facility], ) 5'8.50" Oxygen saturation in Arterial blood by Pulse oximetry 98 % 98 % [facility] ([facility], ) Heart rate 71 /min 71 /min [facility] ([facility], ) Diastolic blood pressure 62 mm[Hg] 62 mm[Hg] [facility] ([facility], ) Systolic blood pressure 128 mm[Hg] 128 mm[Hg] [facility], [facility] [place] body weight 130 [lb_av] 130 [lb_av] MEDEN T ([facility]) Oxygen saturation in Arterial blood by Pulse oximetry 98 % 98 % MEDENT ([facility]) Body temperature 97.2 [degF] 97.2 [degF] MEDENT ([facility]) Respiratory rate 16 /min 16 /min MEDENT ( [facility]) Heart rate 65 /min 65 /min MEDENT ([facility]) Body mass index (BMI) [Ratio] 35.3 kg/m2 35.3 k g/m2 MEDENT ([facility]) Body weight 221.12 [lb_av] 221.12 [lb_av] MEDEN T ([facility]) Body height 66.4 [in_i] 66.4 [in_i] [facility] ([facility]) 5'6.40" Diastolic blood pressure 78 mm[Hg] 78 mm[Hg] [facility] ([facility]) Systolic blood pressure 128 mm[Hg] 128 mm[Hg] M [facility] ([facility]) [place] body weight 130 [lb_av] 130 [lb_av] MEDEN T ([facility]) Oxygen saturation in Arterial blood by Pulse oximetry 98 % 98 % [facility] ([facility]) Body temperature 97.6 [degF] 97.6 [degF] [facility]) Respiratory rate 16 /min 16 /min MEDENT ( [facility]) Heart rate 63 /min 63 /min MEDENT ([facility]) Body mass index (BMI) [Ratio] 33.7 kg/m2 33.7 k g/m2 MEDENT ([facility]) Body weight 211.12 [lb_av] 211.12 [lb_av] MEDEN T ([facility]) Body height 66.4 [in_i] 66.4 [in_i] MEDENT ([facility]) 5'6.40" Diastolic blood pressure 74 mm[Hg] 74 mm[Hg] MEDENT ([facility]) Systolic blood pressure 122 mm[Hg] 122 mm[Hg] [facility] Body mass index (BMI) [Ratio] 32.4 kg/m2 32.4 k g/m2 MEDENT ([facility]) Body weight 213.00 [lb_av] 213.00 [lb_av] MEDEN T ([facility]) Body height 68 [in_i] 68 [in_i] MEDENT ([facility]) 5'8" Body temperature 96.8 [degF] 96.8 [degF] MEDENT ([facility]) Oxygen saturation in Arterial blood by Pulse oximetry 99 % 99 % MEDENT ([facility]) Body temperature 96.9 [degF] 96.9 [degF] MEDENT ([facility]) Respiratory rate 18 /min 18 /min MEDENT ( [facility]) Heart rate 68 /min 68 /min MEDENT ([facility]) Body mass index (BMI) [Ratio] 34.0 kg/m2 34.0 k g/m2 MEDENT ([facility]) Body weight 213.25 [lb_av] 213.25 [lb_av] MEDEN T ([facility]) Body height 66.4 [in_i] 66.4 [in_i] MEDENT ([facility]) 5'6.40" Diastolic blood pressure 76 mm[Hg] 76 mm[Hg] MEDENT ([facility]) Systolic blood pressure 124 mm[Hg] 124 mm[Hg] M EDENT ([facility]) Oxygen saturation in Arterial blood by Pulse oximetry 97 % 97 % MEDENT ([facility]) Body temperature 97.0 [degF] 97.0 [degF] MEDENT ([facility]) Respiratory rate 18 /min 18 /min MEDENT ( [facility]) Heart rate 60 /min 60 /min MEDENT ([facility]) Body mass index (BMI) [Ratio] 33.0 kg/m2 33.0 k g/m2 MEDENT ([facility]) Body weight 207.25 [lb_av] 207.25 [lb_av] MEDEN T ([facility]) Body height 66.4 [in_i] 66.4 [in_i] MEDENT ([facility]) 5'6.40" Diastolic blood pressure 72 mm[Hg] 72 mm[Hg] MEDENT ([facility]) Systolic blood pressure 134 mm[Hg] 134 mm[Hg] M EDENT ([facility]) Body mass index (BMI) [Ratio] 31.0 kg/m2 31.0 k g/m2 MEDENT ([facility] Body weight 207.00 [lb_av] 207.00 [lb_av] MEDEN T ([facility] Body height 68.5 [in_i] 68.5 [in_i] MEDENT ([facility] 5'8.50" Body temperature 97.3 [degF] 97.3 [degF] MEDENT ([facility] Oxygen saturation in Arterial blood by Pulse oximetry 98 % 98 % MEDENT ([facility] Heart rate 65 /min 65 /min MED[facility] ([facility] Diastolic blood pressure 62 mm[Hg] 62 mm[Hg] MEDENT ([facility] Systolic blood pressure 106 mm[Hg] 106 mm[Hg] M EDENT ([facility] Oxygen saturation in Arterial blood by Pulse oximetry 98 % 98 % MEDENT ([facility]) Body temperature 97.1 [degF] 97.1 [degF] MEDENT ([facility]) Respiratory rate 20 /min 20 /min MEDENT ( [facility]) Heart rate 71 /min 71 /min MEDENT ([facility]) Body mass index (BMI) [Ratio] 33.8 kg/m2 33.8 k g/m2 MEDENT ([facility]) Body weight 211.75 [lb_av] 211.75 [lb_av] MEDEN T ([facility]) Body height 66.4 [in_i] 66.4 [in_i] MEDENT ([facility]) 5'6.40" Diastolic blood pressure 62 mm[Hg] 62 mm[Hg] MEDENT ([facility]) Systolic blood pressure 110 mm[Hg] 110 mm[Hg] M EDENT ([facility]) Body mass index (BMI) [Ratio] 31.0 kg/m2 31.0 k g/m2 MEDENT ([facility] Body weight 207.00 [lb_av] 207.00 [lb_av] MEDEN T ([facility] Body height 68.5 [in_i] 68.5 [in_i] MED[facility] ([facility] 5'8.50" Oxygen saturation in Arterial blood by Pulse oximetry 97 % 97 % MEDENT ([facility] Heart rate 65 /min 65 /min [facility] ([facility] Diastolic blood pressure 82 mm[Hg] 82 mm[Hg] MEDENT ([facility] Systolic blood pressure 122 mm[Hg] 122 mm[Hg] M EDENT ([facility] Oxygen saturation in Arterial blood by Pulse oximetry 99 % 99 % [facility]) Body temperature 98.6 [degF] 98.6 [degF] MEDENT ([facility]) Respiratory rate 20 /min 20 /min MEDENT ( [facility]) Heart rate 67 /min 67 /min MEDENT ([facility]) Body mass index (BMI) [Ratio] 32.9 kg/m2 32.9 k g/m2 MEDENT ([facility]) Body weight 206.50 [lb_av] 206.50 [lb_av] MEDEN T ([facility]) Body height 66.4 [in_i] 66.4 [in_i] MEDENT ([facility]) 5'6.40" Diastolic blood pressure 62 mm[Hg] 62 mm[Hg] MEDENT ([facility]) Systolic blood pressure 116 mm[Hg] 116 mm[Hg] M EDENT ([facility]) Diastolic blood pressure 66 mm[Hg] 66 mm[Hg] eCW1 ([facility]) Systolic blood pressure 122 mm[Hg] 122 mm[Hg] e CW1 ([facility]) Body temperature 97.9 [degF] 97.9 [degF] eCW1 ( [facility]) Respiratory rate 18 /min 18 /min eCW1 ([facility]) Heart rate 61 /min 61 /min eCW1 ([facility]) Body mass index (BMI) [Ratio] 30.16 kg/m2 30.16 kg/m2 eCW1 ([facility]) Body height 70 [in_us] 70 [in_us] eCW1 ([facility]) Body weight Measured 210.2 [lb_av] 210.2 [lb_av ] eCW1 ([facility]) Oxygen saturation in Arterial blood by Pulse oximetry 98 % 98 % MEDENT ([facility]) Body temperature 96.8 [degF] 96.8 [degF] MEDENT ([facility]) Respiratory rate 18 /min 18 /min MEDENT ( [facility]) Heart rate 61 /min 61 /min MEDENT ([facility]) Body mass index (BMI) [Ratio] 34.4 kg/m2 34.4 k g/m2 MEDENT ([facility]) Body weight 216.00 [lb_av] 216.00 [lb_av] MEDEN T ([facility]) Body height 66.4 [in_i] 66.4 [in_i] MEDENT ([facility]) 5'6.40" Diastolic blood pressure 82 mm[Hg] 82 mm[Hg] MEDENT ([facility]) Systolic blood pressure 140 mm[Hg] 140 mm[Hg] M EDENT ([facility]) ID Date Data Source [id number] 03/09/2020 10:49:40 AM [facility] Name Value Range Interpretation Code Description Data Source(s) WEIGHT RECORDED 200 lb 200 lb [facility] Body height Measured 69 in 69 in [facility] ID Date Data Source [id number] 02/17/2020 02:59:09 PM [facility] Name Value Range Interpretation Code Description Data Source(s) WEIGHT RECORDED 245 lb 245 lb [facility] Body height Measured 69 in 69 in [facility] Patient Treatment Plan of Care Planned Activity Planned Date Details Description Data Source (s) 24 HR Propranolol Hydrochloride 60 MG Extended Release Oral Capsule 08/03/2020 12:00:00 AM [facility] 24 HR Propranolol Hydrochloride 60 MG Extended Release Oral Capsule 02/27/2020 12:00:[address] [facility] gabapentin 400 MG Oral Capsule 08/02/2019 12:00:00 AM EST Diclofenac Sodium 0.01 MG/MG Topical Gel 07/29/2019 12:00:00 AM EST Ranitidine 150 MG Oral Tablet 07/24/2019 12:00:00 AM EST Triamcinolone Acetonide 0.001 MG/MG Topical Ointment 019 12:00:00 AM EST Furosemide 20 MG Oral Tablet 08/05/2018 12:00:00 AM EST Acetaminophen 325 MG Oral Tablet 2018 12:00:00 AM EDT Aspirin 81 MG Oral Tablet [facility] 24 HR tolterodine tartrate 4 MG Extended Release Oral Capsule
[2020-09-07] MEDS ORDERED: HYDR-3713 (15:04)
[2020-09-07] MEDS ORDERED: MIDAZOLAM INJ 2MG/2ML VIAL (J2250 PER 1MG) As Ordered ONE (15:57)
[2020-09-07] MEDS ORDERED: LIDOCAINE 2% 100MG/5ML SDV (FOR ANES.) As Ordered ONE (15:57)
[2020-09-07] MEDS ORDERED: propofoL 200 MG/20 ML VIAL As Ordered ONE (15:57)
[2020-09-07] MEDS ORDERED: ONDANSETRON 4MG/2ML VIAL As Ordered ONE (15:57)
[2020-09-07] MEDS ORDERED: dexameTHASONE 4 MG/ML 1ML VIAL (J1100 PER 1MG) As Ordered ONE (15:57)
[2020-09-07] MEDS ORDERED: ceFAZolin 2 GM/D5W 50 ML IV BAG (J0690 PER 500MG) As Ordered ONE (16:53)
[2020-09-07] MEDS ORDERED: ePHEDrine SULFATE 25 MG/5 ML(5MG/ML) SYRINGE As Ordered ONE (17:16)
[2020-09-07] MEDS ORDERED: ACETAMINOPHEN 1000MG 100ML IV BTL (OFIRMEV) (J0131 PER 10MG) As Ordered ONE (17:22)
--- NOTE | 2020-09-07 17:44 | ROOPDOC ---
[facility] Report Of Operation Report of Operation DATE OF PROCEDURE: 09/07/20 PREPROCEDURE DIAGNOSES: Left UPJ calculus POSTPROCEDURE DIAGNOSES: Left UPJ calculus PROCEDURE: Cystoscopy, left retrograde pyelogram, ureteral stent insertion SURGEON: Aaron Ruiz MD AERIAL SPRAYER: None ANESTHESIA: Mac ESTIMATED BLOOD LOSS: Approximately 5 mL. COMPLICATIONS: None REMARKS: Impacted left UPJ calculus PROCEDURE NOTE: Patient was brought to the operating room for a ureteral stent insertion because of an impacted left ureteral calculus with edematous changes to the kidney. DESCRIPTION OF PROCEDURE: The patient was placed on the table in the supine position, given Mac anesthesia, placed in lithotomy position, prepped with Betadine paint, draped in aseptic manner and timeout was performed. A 22 [place]awk cystoscope was then inserted into the meatus and advanced under direct vision of a 30 lens of the bladder. In the bladder, the mucosa was seen to be normal. The left ureteral orifice was then catheterized with a 5 [place]awk Pollack catheter and retrograde injection of Conray showed the patient had an impacted left ureteral calculus with some mild hydronephrosis proximal. A wire guide was then passed up beyond the stone into the renal pelvis and this is followed by a 5 [place]awk double-J stent. Both ends curled well when the wire was removed. The bladder was undrained cystoscope was removed and the patient was awakened and sent to recovery room in stable condition having tolerated the procedure well. She will be followed with an ESWL as an outpatient. Fluoroscopy was used throughout the case to identify the stone, passed the wire and double-J stent indeterminate positioning. Fluoroscopy and interpretation were performed throughout the case. AARON RUIZ MD Sep 07, 2020 17:44
--- NOTE | 2020-09-07 17:47 | REP ---
INDICATION: URETERAL STONE. COMPARISON: 07/14/2019. TECHNIQUE: Single C-arm view abdomen performed. FINDINGS: Contrast partially opacifies the left pelvocaliceal system. Left ureteral stent is partially visualized, the proximal aspect is coiled in the left renal pelvis. IMPRESSION: 25 seconds of fluoroscopy time utilized. <Electronically signed by Donnell Leggett > 09/07/20 [id number]
[2020-09-07] MEDS ORDERED: ONDANSETRON 4MG/2ML VIAL IV PRN (18:15)
[2020-09-07] MEDS ORDERED: IBUPROFEN 600MG TAB PO PRN (18:15)
[2020-09-07] MEDS ORDERED: LR 1,000 ML IV SCH ×2 (18:15)
[2020-09-07] MEDS ORDERED: fentaNYL 100 MCG/2 ML INJECTION (J3010) IV PRN (18:15)
[2020-09-07] MEDS ORDERED: METOCLOPRAMIDE INJ 10MG/2ML VIAL (J2765 PER 1) IV PRN (18:15)
[2020-09-07] MEDS ORDERED: PERCOCET 5MG/325MG TAB PO PRN (18:15)
[2020-09-07 19:00] VITALS: BP 136/64
== END 2020-09-07 19:00 | disposition home or self-care (01) ==
LOC: M SDC 14:19
PROVIDERS: ATTEND Urology
DX: N20.1 Calculus of ureter (principal); I10 Essential (primary) hypertension; E11.40 Type 2 diabetes mellitus with diabetic neuropathy, unspecified; K21.9 Gastro-esophageal reflux disease without esophagitis; Z79.84 Long term (current) use of oral hypoglycemic drugs; Z79.899 Other long term (current) drug therapy; Z87.891 Personal history of nicotine dependence
CPT/HCPCS: 52332; 74420; C1769; C2617; J0131; J0690; J1100; J2250; J2405; Q9961; U0002

== ENCOUNTER 2020-09-20 07:55 | Outpatient (RCR) | payer OTHER ==
[~2020-09-20 07:55] MED LIST changes: -CONRAY-60 60% 50ML VIAL (Q9961) As Ordered ONE; +HYDR-3713
== END 2020-09-23 ==
LOC: M PT 07:55
PROVIDERS: ATTEND Orthopaedic Surgery
DX: Z47.89 Encounter for other orthopedic aftercare (principal); Z96.651 Presence of right artificial knee joint

== ENCOUNTER 2020-10-01 07:00 | Outpatient (RCR) | payer OTHER ==
[~2020-10-01 07:00] MED LIST changes: +ASPI-569 PO; -ASPI81TAEC PO; -HYDR-3713; +HYDR-3713 PO; +MONT10TA10 PO; -MONT5TAB2 PO
[2020-10-11] MEDS ORDERED: GLIP5TAB20 PO (13:50)
[2020-10-18] MEDS ORDERED: FLOM0.4C39 PO (10:16)
[2020-10-18] MEDS ORDERED: OXYC1TAB23 PO (10:16)
== END 2020-10-21 ==
LOC: M PT 07:00
PROVIDERS: ATTEND Orthopaedic Surgery
DX: Z47.89 Encounter for other orthopedic aftercare (principal); M17.11 Unilateral primary osteoarthritis, right knee; Z96.651 Presence of right artificial knee joint

== ENCOUNTER → 2020-10-10 | Outpatient (CLI) | payer OTHER ==
[~2020-10-10] MED LIST changes: -ASPI-569 PO; +ASPI81TAEC PO; +GLIP5TAB20 PO
[2020-10-10 11:41] LABS: BASO # 0.1 10^3/uL (0.0-0.2); BASO % 1.4 % (0.0-1.0); EOS # 0.7 10^3/uL (0.0-0.5); EOS % 10.7 % (0.0-3.0); HEMATOCRIT 40.8 % (36.0-47.0); HEMOGLOBIN 13.8 g/dl (12.0-15.5); LYMPH # 1.6 10^3/uL (1.5-5.0); LYMPH % 24.1 % (24.0-44.0); MEAN CORPUSCULAR HEMOGLOBIN 31.8 pg (27.0-33.0); MEAN CORPUSCULAR HGB CONC 33.8 g/dl (32.0-36.5); MONO # 0.6 10^3/uL (0.0-0.8); MONO % 8.5 % (2.0-8.0); NEUTROPHILS # 3.5 10^3/uL (1.5-8.5); PLATELET COUNT, AUTOMATED 206 10^3/uL (150-450); RED BLOOD COUNT 4.34 10^6/uL (4.00-5.40); WHITE BLOOD COUNT 6.4 10^3/uL (4.0-10.0)
[2020-10-10 11:53] LABS: INR 1.09; PARTIAL THROMBOPLASTIN TIME 31.5 SECONDS (24.2-38.5); PROTHROMBIN TIME 14.3 SECONDS (12.5-14.3)
[2020-10-10 12:31] LABS: ALBUMIN 3.5 GM/DL (3.2-5.2); ALT/SGPT 39 U/L (12-78); BILIRUBIN,TOTAL 0.7 MG/DL (0.2-1.0); BLOOD UREA NITROGEN 12 MG/DL (7-18); CALCIUM LEVEL 9.5 MG/DL (8.8-10.2); CARBON DIOXIDE LEVEL 28 MEQ/L (21-32); CHLORIDE LEVEL 108 MEQ/L (98-107); CHOLESTEROL LEVEL 121 MG/DL (<200); CREATININE FOR GFR 0.81 MG/DL (0.55-1.30); GLOMERULAR FILTRATION RATE > 60.0 (>45); GLUCOSE, FASTING 167 MG/DL (70-100); HDL CHOLESTEROL 50 MG/DL (>40); LDL CHOLESTEROL 58 MG/DL (<100); NON-HDL-C 71 MG/DL; POTASSIUM SERUM 4.4 MEQ/L (3.5-5.1); SODIUM LEVEL 143 MEQ/L (136-145); TOTAL PROTEIN 7.7 GM/DL (6.4-8.2); TRIGLYCERIDES LEVEL 63 MG/DL (<150)
== END ==
LOC: M LAB 10:40
PROVIDERS: ATTEND Family Medicine
DX: Z01.818 Encounter for other preprocedural examination (principal); K72.90 Hepatic failure, unspecified without coma; I10 Essential (primary) hypertension; F33.1 Major depressive disorder, recurrent, moderate

== ENCOUNTER → 2020-10-10 | Outpatient (CLI) | payer OTHER ==
--- NOTE | 2020-10-11 04:15 | REP ---
INDICATION: ENCOUNTER FOR OTHER PREPROCEDURAL EXAMINATION/ LABS FIRST COMPARISON: 06/24/2020 TECHNIQUE: PA and lateral. FINDINGS: The mediastinum and cardiac silhouette are normal. The lung childs are clear and without acute consolidation, effusion, or pneumothorax. The skeletal structures are intact and normal. IMPRESSION: No acute cardiopulmonary process. <Electronically signed by Isak Toussaint > 10/11/20 0414
== END ==
LOC: M RAD 10:37
PROVIDERS: ATTEND Physician Assistant
DX: Z01.818 Encounter for other preprocedural examination (principal)

== ENCOUNTER → 2020-10-13 | Outpatient (CLI) | payer OTHER | LOC: M LABSMTC 10:58 | PROVIDERS: ATTEND Anesthesiology | DX: Z01.812 Encounter for preprocedural laboratory examination (principal); Z20.822 Contact with and (suspected) exposure to COVID-19 ==

== ENCOUNTER 2020-10-18 08:35 | Day surgery (SDC) | payer OTHER ==
[~2020-10-18] VITALS: Ht 175.3 cm; Wt 97.1 kg
[~2020-10-18 08:35] MED LIST changes: +LIDOCAINE 1% MDV 20ML VIAL SQ PRN; +LIDOCAINE 2% 100MG/5ML SDV (FOR ANES.) As Ordered ONE; +LR 1,000 ML IV ONE; +ceFAZolin SOD 2 GM in IV 1 EA IV ONE; +propofoL 200 MG/20 ML VIAL As Ordered ONE
--- OUTSIDE RECORDS SUMMARY | 2020-10-18 08:44 | CCD ---
Author Author [facility] Organization [facility] Address Unknown Phone Unavailable Care Team Providers Care Manufacturing Quality Engineer Name Role Phone Georgina Bettencourt Unavailable PROBLEMS Type Condition ICD9-CM Code [id number] Code Onset Dates Condition S tatus W/U Status Risk SNOMED Code Notes Problem Kidney stone N20.0 Active confirmed 5794056 7 Problem Hx of dysplastic nevus Z86.018 Active confirmed 3686480266299 Problem Preop testing Z01.818 Active confirmed 75941 9001 Problem Urinary tract infection, site not specified N39.0 Active confirmed 96930219 Problem Hydronephrosis with urinary obstruction due to renal calcu saran N13.2 Active confirmed 25079263 Problem Left renal stone N20.0 Active confirmed 952 72934 ALLERGIES Allergen (clinical drug ingredient) Drug/Non Drug Allergy do cumented on EMR Reaction Allergy Type Onset Date Status tape Rash Non Drug Allergy Active ENCOUNTERS from 1955 to 2020-10-13 Encounter Location Date Provider Diagnosis [facility] Dermatology [address] [address] 17 Sep, 2020 Georgina Bettencourt Seborrheic dermatitis L21.9 ; Intertrigo L30.4 ; Skin pruritus L29.9 ; Encounter for screening for malignant neoplasm of skin Z12.83 and Hx of dysplastic nevus Z86.018 IMMUNIZATIONS No Information SOCIAL HISTORY Tobacco Use: Social History Observation Description Date Details (start date - stop date) Former Smoker Sex Assigned At : Social History Observation Description Sex Assigned At Unknown Language: Question Answer Notes Languages spoken: Mongolian Pentecostalism: Question Answer Notes Pentecostalism No quaker beliefs that would impact health care. Sexual [...] FOR REFERRAL No Information VITAL SIGNS Weight 218.0 lbs Sep, Height 70 in Sep, BMI 31.28 kg/m2 Sep, Blood pressure systolic 122 mm Hg Sep, Blood pressure diastolic 74 mm Hg Sep, MEDICATIONS Medication SIG (Take, Route, Frequency, Duration) Notes Start Da te End Date Status Metformin HCl 1000 MG 1 tablet with a meal Orally twice a day Active Aspirin 81 MG 1 tablet Orally Once a day for 30 day(s) Not-Taking Dicyclomine HCl 20 MG 1 tablet Orally Three times a day for 30 day(s) Not-Taking Ketoconazole 1 % 1 application to scalp Externally 2-3 ti mes a week for 30 Days Active Oxybutynin Chloride ER 10 MG 1 tablet Orally Once a day for 30 day(s) Active Triamcinolone Acetonide 0.1 % 1 application to affecte d area Externally Twice a day Active Percocet 5-325 MG 1 tablet as needed Orally every 6 hrs, MDD 4 Sep, Active Xifaxan 550 MG 1 tablet Orally Twice a day for 30 day(s) Not-Taking May Use Active Xifaxan 550 MG 1 tablet Orally Twice a day for 30 day(s) Active ProAir HFA 108 (90 Base) MCG/ACT 2 puffs as needed Inhalation every 6 hrs Active Pantoprazole Sodium 40 MG 1 tablet Orally Once a day for 30 day(s) Active Cyclobenzaprine HCl 10 MG 1 tablet as needed Orally Three times a day Active BuPROPion HCl ER (XL) 300 MG 1 tablet in the morning O rally Once a day for 30 day(s) Active GlipiZIDE 5 MG 1 tablet Orally Once a day for 30 day(s) Active Cetirizine HCl 10 MG 1 tablet Orally Once a day for 30 day(s) Active Vusion 0.25-15-81.35 % as directed Externally twice daily for 30 days Sep, Active Dicyclomine HCl 10 MG 2 capsules Orally prn Active Potassium 1 tab Oral Active Magnesium Oxide 400 MG 1 tablet as needed Orally Once a day for 30 da y(s) Active Propranolol HCl ER 60 MG 1 capsule Orally Once a day for 30 day(s) Active Ranitidine HCl 150 MG 1 tablet Orally Once a day for 30 day(s) Not-Taking Bactrim DS 800-160 MG 1 tablet Orally as directed- 1 hour prior to cystoscopy Apr, Not-Taking Montelukast Sodium 10 MG 1 tablet Orally Once a day for 30 day(s) Not-Taking Citracal Plus - as directed Orally A ctive Fluocinonide 0.05 % 1 application to scalp Exter jackei Twice a day x 2 weeks then as needed for 30 Days Sep, Active Duloxetine HCl 60 MG 1 capsule Orally Once a day for 30 day(s) Active Montelukast Sodium 10 MG 1 tablet Orally Once a day for 30 day(s) Active Lactulose 10 GM/15ML 15 ml Orally Once a day for 30 day(s) Active Spironolactone 25 MG 1 tablet Orally for 30 day(s) Active HydrOXYzine HCl 10 MG 1 tablet as needed Orally nightly for 30 d ay(s) Sep, Active Atenolol 25 MG 1 tablet Orally Once a day for 30 day(s) Not-Taking PROCEDURES No Information RESULTS No Results REASON FOR VISIT [facility] MEDICAL (GENERAL) HISTORY Type Description Date Medical [...] repair Surgical History bilateral carpal tunnel sx Surgical History cystoscopy with left stent removal 09/19 Goals Section No Information Health Concerns No Information MEDICAL EQUIPMENT No Information MENTAL STATUS No Information FUNCTIONAL STATUS No Information ASSESSMENTS Encounter Date Diagnosis Assessment Notes Treatment Notes Treatm ent Clinical Notes Sep, Seborrheic dermatitis (ICD-10 - L21.9) Sep, Intertrigo (ICD-10 - L30.4) Sep, Skin pruritus (ICD-10 - L29.9) Sep, Encounter for screening for malignant neoplasm of skin (ICD-10 - Z12.83) Patient counseled on signs and symptoms of skin cancer including ABCDE's of Melanoma. Patient counseled to wear sunscreen or use sun protective clothing when outdoors. Avoid peak hours of sun between 10-2. Patient instructed to call with any new or changing lesions. Sep, Hx of dysplastic nevus (ICD-10 - Z86.018) NER PLAN OF TREATMENT Medication Medication Name Sig Start Date Stop Date Vusion 0.25-15-81.35 % as directed Externally twice daily fo r 30 days Sep, HydrOXYzine HCl 10 MG 1 tablet as needed Orally nightly for 30 day(s) Sep, Ketoconazole 1 % 1 application to scalp Externally 2-3 ti mes a week for 30 Days Fluocinonide 0.05 % 1 application to scalp Exter jackie Twice a day x 2 weeks then as needed for 30 Days Sep, Treatment Notes Assessment Notes Clinical Notes Encounter for screening for malignant neoplasm of skin Patient counseled on signs and symptoms of skin cancer including ABCDE's of Melanoma. Patient counseled to wear sunscreen or use sun protective clothing when outdoors. Avoid peak hours of sun between 10-2. Patient instructed to call with any new or changing lesions. Hx of dysplastic nevus NER Next Appt Details 1 Year-FBSE Reason: Provider Name:Bailee Castillo, 2020-10-22 8 02:00:00 PM, [address], [place], [address], Provider Name:Georgina Bettencourt, 2021-10-14 10:00:00 AM, [address] [place], [address], Insurance Providers Payer Name Payer Address Payer Phone Insured Name Patient Relati onship to Insured Coverage Start Date Coverage End Date [facility] COMM[facility]AN [facility] [address] [facility] [phone] LEROY OWEN self
--- OUTSIDE RECORDS SUMMARY | 2020-10-18 08:45 | CCD ---
Author Author [facility] Organization [facility] Address Unknown Phone Unavailable Care Team Providers Care Loadmaster Name Role Phone Aaron Ruiz Unavailable PROBLEMS Type Condition ICD9-CM Code [id number] Code Onset Dates Condition S tatus SNOMED Code Notes Problem Hydronephrosis with urinary obstruction due to renal calcu saran N13.2 Active 47107487 Problem Left renal stone N20.0 Active 59262889 Problem Preop testing Z01.818 Active 038620277 Problem Urinary tract infection, site not specified N39.0 Active 43029770 ALLERGIES Allergen (clinical drug ingredient) Drug/Non Drug Allergy do cumented on EMR Reaction Allergy Type Onset Date Status tape Unknown Non Drug Allergy Active ENCOUNTERS from 1955 to 2020-09-22 Encounter Location Date Provider Diagnosis [facility] Urology [address] [place] [address] Aug Aaron Ruiz Kidney stone N20.0 and Left renal stone N20.0 IMMUNIZATIONS No Information SOCIAL HISTORY Tobacco Use: Social History Observation Description Date Details (start date - stop date) Former Smoker Sex Assigned At : Social History Observation Description Sex Assigned At Unknown Language: Question Answer Notes Languages spoken: Maltese Episcopalian: Question Answer Notes Episcopalian No hinduism beliefs that would impact health care. Sexual [...] FOR REFERRAL No Information VITAL SIGNS Weight 217 lbs Aug, Height 70 in Aug, BMI 31.13 kg/m2 Aug, Heart Rate 64 /min Aug, Respiratory Rate 18 /min Aug, Oximetry 95 Aug, Blood pressure systolic 128 mm Hg Aug, Blood pressure diastolic 70 mm Hg Aug, MEDICATIONS Medication SIG (Take, Route, Frequency, Duration) Notes Start Da te End Date Status Bactrim DS 800-160 MG 1 tablet Orally as directed- 1 hour prior to cystoscopy Apr, Not-Taking Atenolol 25 MG 1 tablet Orally Once a day for 30 day(s) Not-Taking ProAir HFA 108 (90 Base) MCG/ACT 2 puffs as needed Inhalation every 6 hrs Active Percocet 5-325 MG 1 tablet as needed Orally every 6 hrs Active Ranitidine HCl 150 MG 1 tablet Orally Once a day for 30 day(s) Not-Taking May Use Active Cyclobenzaprine HCl 10 MG 1 tablet as needed Orally Three times a day Active Metformin HCl 1000 MG 1 tablet with a meal Orally twice a day Active Pantoprazole Sodium 40 MG 1 tablet Orally Once a day for 30 day(s) Active Triamcinolone Acetonide 0.1 % 1 application to affecte d area Externally Twice a day Active Potassium 1 tab Oral Active Montelukast Sodium 10 MG 1 tablet Orally Once a day for 30 day(s) Active Citracal Plus - as directed Orally A ctive Dicyclomine HCl 10 MG 2 capsules Orally prn Active Magnesium Oxide 400 MG 1 tablet as needed Orally Once a day for 30 da y(s) Active BuPROPion HCl ER (XL) 300 MG 1 tablet in the morning O rally Once a day for 30 day(s) Active Spironolactone 25 MG 1 tablet Orally for 30 day(s) Active Duloxetine HCl 60 MG 1 capsule Orally Once a day for 30 day(s) Active Xifaxan 550 MG 1 tablet Orally Twice a day for 30 day(s) Not-Taking Aspirin 81 MG 1 tablet Orally Once a day for 30 day(s) Not-Taking Propranolol HCl ER 60 MG 1 capsule Orally Once a day for 30 day(s) Active Cetirizine HCl 10 MG 1 tablet Orally Once a day for 30 day(s) Active Lactulose 10 GM/15ML 15 ml Orally Once a day for 30 day(s) Active GlipiZIDE 5 MG 1 tablet Orally Once a day for 30 day(s) Active Oxybutynin Chloride ER 10 MG 1 tablet Orally Once a day for 30 day(s) Active Montelukast Sodium 10 MG 1 tablet Orally Once a day for 30 day(s) Active Dicyclomine HCl 20 MG 1 tablet Orally Three times a day for 30 day(s) Active Xifaxan 550 MG 1 tablet Orally Twice a day for 30 day(s) Active PROCEDURES No Information RESULTS No Results REASON FOR VISIT s/p laser litho. cysto w/ stent removal MEDICAL (GENERAL) HISTORY Type Description Date Medical [...] Notes Treatment Notes Treatm ent Clinical Notes Aug, Kidney stone (ICD-10 - N20.0) Aug, Left renal stone (ICD-10 - N20.0) PLAN OF TREATMENT Treatment Notes Test Name Order Date CBC - Complete Blood Count 2020-09-22 PT & APTT 2020-09-22 URINE CULTURE 2020-09-22 Basic Metabolic Profile (BMP) 2020-09-22 ADM CHEST 2 VIEW 2020-09-22 Electrocardiogram (EKG) 2020-09-22 Next Appt Details Provider Name:Georgina Bettencourt, 2020-10-01 10:45:00 AM, [facility] [place], [address], Insurance Providers Payer Name Payer Address Payer Phone Insured Name Patient Relati onship to Insured Coverage Start Date Coverage End Date [facility] COMM[facility] PLAN [facility] [address] [facility] [phone] LEROY OWEN self
--- OUTSIDE RECORDS SUMMARY | 2020-10-18 08:45 | CCD ---
Author Author [facility] Organization [facility] Address Unknown Phone Unavailable Care Team Providers Care Director Park Name Role Phone Jonathan Bailee Unavailable PROBLEMS Type Condition ICD9-CM Code [id number] Code Onset Dates Condition S tatus W/U Status Risk SNOMED Code Notes Problem Left renal stone N20.0 Active confirmed 955 69110 Problem Kidney stone N20.0 Active confirmed 1646784 7 Problem Preop testing Z01.818 Active confirmed 41295 9001 Problem Urinary tract infection, site not specified N39.0 Active confirmed 20858363 Problem Hydronephrosis with urinary obstruction due to renal calcu saran N13.2 Active confirmed 37349810 ALLERGIES Allergen (clinical drug ingredient) Drug/Non Drug Allergy do cumented on EMR Reaction Allergy Type Onset Date Status tape Unknown Non Drug Allergy Active ENCOUNTERS from 1955 to 2020-09-28 Encounter Location Date Provider Diagnosis [facility] Urology [address] [place] [address] Sep Bailee Castillo IMMUNIZATIONS No Information SOCIAL HISTORY Tobacco Use: Social History Observation Description Date Details (start date - stop date) Former Smoker Sex Assigned At : Social History Observation Description Sex Assigned At Unknown Language: Question Answer Notes Languages spoken: Portuguese Episcopal: Question Answer Notes Episcopal No congregation beliefs that would impact health care. Sexual [...] REASON FOR REFERRAL No Information VITAL SIGNS No information MEDICATIONS Medication SIG (Take, Route, Frequency, Duration) Notes Start Da te End Date Status ProAir HFA 108 (90 Base) MCG/ACT 2 puffs as needed Inhalation every 6 hrs Active Atenolol 25 MG 1 tablet Orally Once a day for 30 day(s) Not-Taking Cetirizine HCl 10 MG 1 tablet Orally Once a day for 30 day(s) Active Aspirin 81 MG 1 tablet Orally Once a day for 30 day(s) Not-Taking Cyclobenzaprine HCl 10 MG 1 tablet as needed Orally Three times a day Active May Use Active Bactrim DS 800-160 MG 1 tablet Orally as directed- 1 hour prior to cystoscopy Apr, Not-Taking Metformin HCl 1000 MG 1 tablet with a meal Orally twice a day Active Pantoprazole Sodium 40 MG 1 tablet Orally Once a day for 30 day(s) Active Ranitidine HCl 150 MG 1 tablet Orally Once a day for 30 day(s) Not-Taking Potassium 1 tab Oral Active Citracal Plus - as directed Orally A ctive Lactulose 10 GM/15ML 15 ml Orally Once a day for 30 day(s) Active GlipiZIDE 5 MG 1 tablet Orally Once a day for 30 day(s) Active Duloxetine HCl 60 MG 1 capsule Orally Once a day for 30 day(s) Active Xifaxan 550 MG 1 tablet Orally Twice a day for 30 day(s) Not-Taking Propranolol HCl ER 60 MG 1 capsule Orally Once a day for 30 day(s) Active Montelukast Sodium 10 MG 1 tablet Orally Once a day for 30 day(s) Active Triamcinolone Acetonide 0.1 % 1 application to affecte d area Externally Twice a day Active BuPROPion HCl ER (XL) 300 MG 1 tablet in the morning O rally Once a day for 30 day(s) Active Dicyclomine HCl 10 MG 2 capsules Orally prn Active Magnesium Oxide 400 MG 1 tablet as needed Orally Once a day for 30 da y(s) Active Spironolactone 25 MG 1 tablet Orally for 30 day(s) Active Montelukast Sodium 10 MG 1 tablet Orally Once a day for 30 day(s) Active Percocet 5-325 MG 1 tablet as needed Orally every 6 hrs, MDD 4 Sep, Active Oxybutynin Chloride ER 10 MG 1 tablet Orally Once a day for 30 day(s) Active Dicyclomine HCl 20 MG 1 tablet Orally Three times a day for 30 day(s) Active Xifaxan 550 MG 1 tablet Orally Twice a day for 30 day(s) Active PROCEDURES No Information RESULTS No Results REASON FOR VISIT pain medication MEDICAL (GENERAL) HISTORY Type Description Date Medical [...] No Information FUNCTIONAL STATUS No Information ASSESSMENTS No Information PLAN OF TREATMENT Medication Medication Name Sig Start Date Stop Date Percocet 5-325 MG 1 tablet as needed Orally every 6 hrs, MDD 4 0 4 Sep, 2020 Next Appt Details Provider Name:Georgina Bettencourt, 2020-10-02 08:30:00 AM, [address] [facility], [address], [place], [address], Provider Name:Bailee Castillo, 2020-10-22 8 02:00:00 PM, [address], [place], [address], Insurance Providers Payer Name Payer Address Payer Phone Insured Name Patient Relati onship to Insured Coverage Start Date Coverage End Date [facility] [address] [facility] [phone] LEROY OWEN self
--- OUTSIDE RECORDS SUMMARY | 2020-10-18 08:45 | CCD | Continuity of Care Document ---
Author Author Steff Sadler Organization Unknown Address Unknown Phone [phone] Care Team Providers Care Surgical Orderly Name Role Phone Maggie Kerr D.O. AUTM Darian Darnell MD AUTM [phone] [facility] Program AUTM Problems Active Problems Provider Date Essential [...] at bedtime as needed for pain istop [id number] 30tabs M25.511 Kely NegronOMir 03/18/2019 Bupropion Hydrochloride [...] as directed Unknown BD Ultra-Fine Micro Pen [place] 6mm X 32 G 32G X 6 [...] Vaccine Lot # U-Flu Given 05/26/2019 Influenza,Unspecified [id number] Given 07/02/2017 Influenza Vaccin e Quadrivalent Preser/Antibiotic Free Im Use [id number] Vital Signs Date Vital Result Comment 08/02/2020 10:59am BP Systolic 136 mmHg BP Diastolic 72 mmHg Height 66.4 inches 5'6.40" Weight 215.50 lb BMI (Body Mass Index) 34.4 kg/m2 Heart Rate 75 /min Respiratory Rate 18 /min Body Temperature 97.1 F O2 % BldC Oximetry 96 % [place] Body Weight 130 lb 07/02/2020 2:10pm BP Systolic 126 mmHg BP Diastolic 74 mmHg Height 66.4 inches 5'6.40" Weight 219.50 lb BMI (Body Mass Index) 35.0 kg/m2 Heart Rate 61 /min Respiratory Rate 18 /min Body Temperature 97.4 F O2 % BldC Oximetry 97 % [place] Body Weight 130 lb Results Test Acquired Date Facility Test Result H/L Range Note Laboratory test finding 09/07/2020 [facility] Outpatient T jerrying (Registration) [address] [place] [address] [phone] Sars Covid-19 Amplification NEGATIVE Normal Nega tive 1 Laboratory test finding 07/18/[address] [address] [phone] Ammonia 55 uMOL/L High <32 CBC With Differential 07/18/[address] [address] [phone] White Blood Count 6.1 10 Normal 4.0-10.0 [...] 36.0-66.0 Lymph % 21.0 % Low 24.0-44.0 Elk % 8.9 % High 0.0-5.0 Eos % 10.3 % High 0.0-3.0 Baso % 1.0 % Normal 0.0-1.0 Immature Granulocyte % 0.5 % Normal 0-3.0 Nucleated Red Blood Cell % 0.0 % Normal 0-0 Neutrophils # 3.6 10 Normal 1.5-8.5 Lymph # 1.3 10 Low 1.5-5.0 Elk # 0.5 10 Normal 0.0-0.8 Eos # 0.6 10 High 0.0-0.5 Baso # 0.1 10 Normal 0.0-0.2 Comprehensive Metabolic Profil 07/18/[address] [address] [phone] Glucose, Fasting 170 mg/dL High 70-100 Blood Urea Nitrogen 15 mg/dL Normal 7-18 Creatinine For GFR 0.75 mg/dL Normal 0.55-1.30 Glomerular Filtration Rate > 60.0 Normal >45 2 Sodium Level 142 mEq/L Normal 136-145 Potassium [...] Ratio 0.8 Low 1.2-2.2 Hemoglobin A1c 07/18/2020 [facility] nter [address] [place] [address] [phone] Hemoglobin A1c 7.2 % Normal 3 Estimated Average Glucose 160 mg/dL High 60-110 Lipid Panel 07/18/2020 [facility] nter [address] [place] [phone] Triglycerides Level 90 mg/dL Normal <150 Cholesterol Level 116 mg/dL Normal <200 HDL Cholesterol 52 mg/dL Normal >40 LDL Cholesterol 46 mg/dL Normal <100 Non-HDL-C 64 mg/dL Normal Cholesterol Risk Ratio 2.230 Normal <5 Comprehensive Metabolic Profil 06/24/2020 [facility] Outpa tient Testing (Registration) [address] [place] [address] [phone] Glucose, Fasting 157 mg/dL High 70-100 Blood [...] 0.9 Low 1.2-2.2 Complete Blood Count 06/24/2020 [facility] Outpatient Test ing (Registration) [address] [place] [address] [phone] White Blood Count 4.6 10 Normal 4.0-10.0 [...] % Normal 0-0 Laboratory test finding 06/24/2020 [facility] Outpatient T esting (Registration) [address] [place] [address] [phone] Erythrocyte Sedimentation Rate 32 mm/hr High 0 -30 Prothrombin Time/Inr 06/24/2020 [facility] Outpatient Test ing (Registration) [address] [place] [address] [phone] Prothrombin Time 14.7 seconds High 12.5-14.3 Inr 1.12 Normal 5 Laboratory test finding 05/31/2020 [facility] Outpatient T esting (Registration) [address] [place] [address] [phone] Alpha Fetoprotein Tumor Quant 3.8 NG/ML Normal <8 .1 6 Comprehensive Metabolic Profil 05/31/2020 [facility] Outpa tient Testing (Registration) [address] [place] [address] [phone] Glucose, Fasting 116 mg/dL High 70-100 Blood [...] Normal 3.2-5.2 Albumin/Globulin Ratio 0.8 Low 1.2-2.2 Prothrombin Time/Inr 05/31/2020 [facility] Outpatient Test ing (Registration) [address] [place] [id number] [phone] Prothrombin Time 13.7 seconds Normal 12.5-14.3 Inr 1.03 Normal 8 Complete Blood Count 05/31/2020 [facility] Outpatient Test ing (Registration) [address] [place] [address] [phone] White Blood Count 6.2 10 Normal 4.0-10.0 [...] Blood Cell % 0.0 % Normal 0-0 Creatinine With GFR 05/31/2020 [facility] Outpatient Testi ng (Registration) [address], [place] [id number] [phone] Creatinine For GFR 0.69 mg/dL Normal 0.55-1.30 Glomerular Filtration Rate > 60.0 Normal >45 9 Laboratory test finding 05/31/2020 [facility] Outpatient T jerrying (Registration) [address] [place] [address] [phone] Blood Urea Nitrogen 12 mg/dL Normal 7-18 Comprehensive Metabolic Profil 04/26/[address] [address] [phone] Glucose, Fasting 214 mg/dL High 70-100 Blood Urea Nitrogen 11 mg/dL Normal 7-18 Creatinine For GFR 0.76 mg/dL Normal 0.55-1.30 Glomerular Filtration Rate > 60.0 Normal >45 1 0 Sodium Level 140 mEq/L Normal 136-145 Potassium [...] 1.0 Low 1.2-2.2 Laboratory test finding 04/26/[address] [address] [phone] Ammonia 24 uMOL/L Normal <32 Hemoglobin A1c 04/26/2020 [facility] nter [address] [place] [address] [phone] Hemoglobin A1c 6.6 % Normal 11 Estimated Average Glucose 143 mg/dL High 60-110 CBC With Differential 04/26/[address] [address] [phone] White Blood Count 5.9 10 Normal 4.0-10.0 [...] 36.0-66.0 Lymph % 28.8 % Normal 24.0-44.0 Elk % 7.5 % High 0.0-5.0 Eos % 10.2 % High 0.0-3.0 Baso % 1.2 % High 0.0-1.0 Immature Granulocyte % 0.2 % Normal 0-3.0 Nucleated Red Blood Cell % 0.0 % Normal 0-0 Neutrophils # 3.1 10 Normal 1.5-8.5 Lymph # 1.7 10 Normal 1.5-5.0 Elk # 0.4 10 Normal 0.0-0.8 Eos # 0.6 10 High 0.0-0.5 Baso # 0.1 10 Normal 0.0-0.2 Laboratory test finding 04/26/2020 [facility] [address] [place] [address] [phone] Total 25(Oh) Vitamin D 37.2 NG/ML Normal 30.0-100. 0 Ferritin 30 NG/ML Normal 8-252 Iron (Fe) 124 g/dL Normal 50-170 Vitamin B12 Level 1823 pg/mL High 247-911 12 Laboratory test finding 04/21/2020 [facility] Outpatient T esting (Registration) [address] [place] [address] [phone] Platelet Count, Automated 162 10 Normal 150-45 0 Prothrombin Time/Inr 04/21/2020 [facility] Outpatient Test ing (Registration) [address] [place] [address] [phone] Prothrombin Time 14.5 seconds High 11.8-14.0 Inr 1.10 Normal 13 Laboratory test finding 04/21/2020 [facility] Outpatient T esting (Registration) [address] [place] [address] [phone] Partial Thromboplastin Time 35.6 seconds Normal 25 .0-38.4 1 A false negative result may occur if a specimen is improperly collected, transported or handled. False negative results may also occur if inadequate numbers of organisms are present in the specimen. As with any molecular test, mutations within the target regions of [employer] SARS-CoV-2 could affect primer and/or probe binding resulting in failure to detect the presence of virus. This test cannot rule out diseases caused by other bacterial or viral pathogens. DISCLAIMER: Testing was performed using the [employer] SARS-CoV-2 test. This test was developed and its performance characteristics determined by [employer]. This test has not been FDA cleared [...] the authorization is terminated or revoked sooner. 2 Units are mL/min/1.73 m2 Chronic Kidney Disease Staging per NKF: Stage I & II GFR >=60 Normal to Mildly Decreased Stage III GFR 30-59 Moderately Decreased Stage IV GFR 15-29 Severely Decreased Stage V GFR <15 Very Little GFR Left ESRD GFR <15 on FREIGHT COORDINATOR 3 REFERENCE RANGES: <=5.6% NORMAL 5.7-6.4% SUGGESTS IMPAIRED GLUCOSE META BOLISM/PREDIABETIC >= 6.5% ABNORMAL 4 Units are mL/min/1.73 m2 Chronic Kidney Disease Staging per NKF: Stage I & II GFR >=60 Normal to Mildly Decreased Stage III GFR 30-59 Moderately Decreased Stage IV GFR 15-29 Severely Decreased Stage V GFR <15 Very Little GFR Left ESRD GFR <15 on FREIGHT COORDINATOR 5 THERAPUTIC HUMAN INR VALUES INDICATIONS NORMAL RANGES PROPHYLAXIS/TREATMENT OF: VENOUS THROMBOSIS 2.0-3.0 PULMONARY EMBOLISM 2.0-3.0 PREVENTION OF SYSTEMIC EMBOLISM FROM: TISSUE HEART VALVES 2.0-3.0 ACUTE MYOCARDIAL INFARCTION 2.0-3.0 VALVULAR HEART DISEASE 2.0-3.0 ATRIAL FIBRILLATION 2.0-3.0 MECHANICAL VALVES(HIGH RISK) 2.5-3.5 RECURRENT MYOCARDIAL INFARCTION 2.5-3.5 6 THE AFP ASSAY IS PERFORMED O N THE ESKYAUR BY CHEMILUMINESCENCE AND SHOULD NOT BE COMPARED [...] Little GFR Left ESRD GFR <15 on FREIGHT COORDINATOR 8 THERAPUTIC HUMAN INR VALUES INDICATIONS NORMAL RANGES PROPHYLAXIS/TREATMENT OF: VENOUS THROMBOSIS 2.0-3.0 PULMONARY EMBOLISM 2.0-3.0 PREVENTION OF SYSTEMIC EMBOLISM FROM: TISSUE HEART VALVES 2.0-3.0 ACUTE MYOCARDIAL INFARCTION 2.0-3.0 VALVULAR HEART DISEASE 2.0-3.0 ATRIAL FIBRILLATION 2.0-3.0 MECHANICAL VALVES(HIGH RISK) 2.5-3.5 RECURRENT MYOCARDIAL INFARCTION 2.5-3.5 9 Units are mL/min/1.73 m2 Chronic Kidney Disease Staging per NKF: Stage I & II GFR >=60 Normal to Mildly Decreased Stage III GFR 30-59 Moderately Decreased Stage IV GFR 15-29 Severely Decreased Stage V GFR <15 Very Little GFR Left ESRD GFR <15 on FREIGHT COORDINATOR 10 Units are mL/min/1.73 m2 Chronic Kidney Disease Staging per NKF: Stage I & II GFR >=60 Normal to Mildly Decreased Stage III GFR 30-59 Moderately Decreased Stage IV GFR 15-29 Severely Decreased Stage V GFR <15 Very Little GFR Left ESRD GFR <15 on FREIGHT COORDINATOR 11 REFERENCE RANGES: <=5.6% NORMAL 5.7-6.4% SUGGESTS IMPAIRED GLUCOSE META BOLISM/PREDIABETIC >= 6.5% ABNORMAL 12 VITAMIN B12 NORMAL RANGE NORMAL 247 - 911 PG/ML INDETERMINATE 211 - 246 PG/ML DEFICIENT LESS THAN 211 PG/ML 13 THERAPUTIC HUMAN INR VALUES INDICATIONS NORMAL [...] Provider Dx Diagnosis Office Visit 08/02/2020 11:00a [facility] Maggie Kerr, D.O. I10 Essential (primary) hyperten elian F33.1 Major depressive disorder, r ecurrent, moderate E11.9 Type 2 diabetes mellitus wit hout complications G47.33 Obstructive sleep apnea (jessenia lt) (pediatric) Z96.651 Presence of right artificial knee joint Z79.82 manager long term care (current) use of a spirin Z79.899 Other halfway (current) dr hilario therapy K72.90 Hepatic failure, unspecified without coma M54.5 Low back pain N20.0 Calculus of kidney Office Visit 07/02/2020 2:00p [facility] [place] Kumar Z01.818 Encounter for other preproce dural examination 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, NEC, right knee Office Visit 06/07/2020 9:20a [facility] [place] Ann L03.113 Cellulitis of right upper li mb Office Visit 05/01/2020 2:00p [facility] [place] Kumar I10 Essential (primary) hyperten elian Z98.84 Bariatric surgery status F33.1 Major depressive disorder, r ecurrent, moderate E11.9 Type 2 diabetes mellitus wit hout complications G47.33 Obstructive sleep apnea (jessenia lt) (pediatric) G93.41 Metabolic encephalopathy Assessments Date Code Description Provider 08/02/2020 I10 Essential (primary) hypertension Maggie Kerr D.O. 08/02/2020 F33.1 Major depressive disorder, recur rent, moderate Maggie Sharif D.O. 08/02/2020 E11.9 Type 2 diabetes mellitus without complications Maggie Sharif D.O. 08/02/2020 G47.33 Obstructive sleep apnea (adult) (pediatric) Maggie Sharif D.O. 08/02/2020 Z96.651 Presence of right artificial kne e joint Maggie Kerr D.OMir 08/02/2020 Z79.82 manager long term care (current) use of aspir in Maggie Kerr D.O. 08/02/2020 Z79.899 Other halfway (current) drug t herapy Bella Negron.O. 08/02/2020 K72.90 Hepatic failure, unspecified wit hout coma Maggie Sharif D.O. 08/02/2020 M54.5 Low back pain Bella Perea.OMir 08/02/2020 N20.0 Calculus of kidney Maggie Paniagua D.OMir 07/02/2020 Z01.818 Encounter for other preprocedura l [...] [place] Kumar Plan of Treatment Future Appointment(s):* 10/19/2020 9:00 am - [place] Kumar at [facility] * 11/06/2020 10:00 am - [place] Kumar at [facility] Functional Status Description No Information Available Mental Status Description No Information Available Referrals Refer to Reason for Referral Status Appt [facility] This is a 65 year old female with chronic MDD. She is maintained on cymbalta 30 BID with 300 mg Wellbutrin and I have not been successful with weaning her cymbalta (she has liver disease and I would like her on a lower dose). Please evaluate and treat with her liver disease in mind. Sent [address] [place] [address] [phone] Varun Mcduffie MD This is a 65 year old female with known renal calculis s/p lithotripsy with you. She is having hematuria but no pain. Please evaluate and treat. Closed [address] [place] [address] [address] [phone]
--- OUTSIDE RECORDS SUMMARY | 2020-10-18 08:45 | CCD | Continuity of Care Document ---
Author Author Steff THOMSON PA Organization Unknown Address [address] [facility] [address] [place] [address] Phone [phone] Care Team Providers Care Dining Services Manager Name Role Phone Maggie Kerr D.O. AUTM [phone] Darian Darnell MD AUTM [phone] [facility] AUTM Problems Active Problems Provider Date Essential hypertension Maggie Kerr D.O. Onset: 12/2016 Gastroesophageal reflux disease Maggie Kerr D.O. O nset: 05/28/2017 Diabetic neuropathy Maggie Kerr D.O. Onset: 2016 Uncomplicated moderate persistent asthma Maggie quiñones D.O. Onset: 05/28/2017 Obstructive sleep apnea syndrome Maggie Kerr D.O. Onset: 05/28/2017 Allergic rhinitis Maggie Kerr D.O. Onset: 2016 Personal history of primary malignant neoplasm of [facility] Maggie Kerr D.O. Onset: 05/28/2017 Edema Maggie [...] Use Denies Drug Use Smoking Status Reviewed: 10/01/20 Patient is a former smoker Exercise Type/Frequency Does not exercise Sun Exposure Uses sunscreen Seat Belt/Car Seat Always uses seat belt Allergies, Adverse Reactions, Alerts Active Allergies Reaction Severity Comments Date Gabapentin Increases Ammonia Levels 10/2019 Inactive Allergies NKDA 05/28/2017 Medications Active Medications SIG Qnty Indications Ordering Provide r Date Anastrozole 1mg Tablets 1 by mouth every day 90tabs Z01.818 Bella Negron.O. 07/02 Diclofenac Sodium 1% Gel Apply 1 Gram To Bilateral Knees Four Times A Day For Pain 300units M17.9 Kely NegronO. 05/15/2020 Constulose 10GM/15ML Solution Take 40 ML By Mouth Three Times A Day 1892units Kely NegronOMir 04/22/[address] Dulox[address] HCL [address] Gould Take One Capsule By Mouth Twice A Day 60caps F33.1 Kely LucasO. 08/26/2019 Metformin HCL ER 500mg Tablets ER 24HR 2 tablets by mouth twice daily 360tabs Kely LucasOMir 07/28/2019 Potassium Chloride ER 20Meq Tablet s ER Take One Tablet By Mouth Every Day 30tabs Bella Mason.O. 05/13/2019 Percocet 5-325mg Tablets take one tablet by mouth every at bedtime as needed for pain istop [id number] 30tabs M25.511 Kely NegronO. 03/18/2019 Bupropion Hydrochloride ER (XL) 300mg Tablets ER 24HR Take One Tablet By Mouth Every Morning 30tabs F33.1 Kely GallegoOMir 03/17/2019 Triamcinolone Acetonide 0.1% Cream Apply To Affected Area(S) On Lower Leg And Left Hand Two Times A Day For 7 Days Then as Needed For Flare Ups 80units Z68.37 Kely Negron OiMr 11/08/2018 Atenolol 25mg Tablets take one tablet by mouth every day 30tabs Kely NegronOMir 11/09 Xifaxan 550mg Tablets one tablet by [...] as directed Unknown BD Ultra-Fine Micro Pen Walker 6mm X 32 G 32G X 6 mm Misc Use twice a day with lantus Unknown Cyclobenzaprine HCL 10mg Tablets Take One Tablet By Mouth Three Times A Day as Needed (Maximum Daily Dose = 3) 270tabs Kely NegronO. History Medications Bactroban 2% Cream apply right armevery 12 hours for seven days 30gm L03.113 Maggie Kerr D.O. 06/07/2020 - 07/02/2020 Medications Administered in Office Medication SIG Qnty Indications Ordering Provider Date Immunization Administration Single Or Co mbination Injection Bella Negron 07/02/2017 Immunizations CPT Code Status Date Vaccine Lot # U-Flu Given 05/26/2019 Influenza,Unspecified [id number] Given 07/02/2017 Influenza Vaccin e Quadrivalent Preser/Antibiotic Free Im Use [id number] Vital Signs Date Vital Result Comment 10/01/2020 1:38pm BP Systolic 142 mmHg BP Diastolic 74 mmHg Height 66.4 inches 5'6.40" Weight 218.00 lb BMI (Body Mass Index) 34.8 kg/m2 Heart Rate 84 /min Respiratory Rate 18 /min Body Temperature 97.4 F O2 % BldC Oximetry 94 % [place] Body Weight 130 lb 08/02/2020 10:59am BP Systolic 136 mmHg BP Diastolic 72 mmHg Height 66.4 inches 5'6.40" Weight 215.50 lb BMI (Body Mass Index) 34.4 kg/m2 Heart Rate 75 /min Respiratory Rate 18 /min Body Temperature 97.1 F O2 % BldC Oximetry 96 % [place] Body Weight 130 lb Results Test Acquired Date Facility Test Result H/L Range Note Order 10/01/2020 In House Orders EKG see report Laboratory test finding 09/07/2020 [facility] Outpatient T jerrying (Registration) [address] [place], [place] [id number] [phone] Sars Covid-19 Amplification NEGATIVE Normal Nega tive 1 Lipid Panel 07/18/2020 [facility] nter [address] [place] [address] [phone] Triglycerides Level 90 mg/dL Normal <150 Cholesterol Level 116 mg/dL Normal <200 HDL Cholesterol 52 mg/dL Normal >40 LDL Cholesterol 46 mg/dL Normal <100 Non-HDL-C 64 mg/dL Normal Cholesterol Risk Ratio 2.230 Normal <5 Hemoglobin A1c 07/18/2020 [facility] nter [address] [place], [place] [id number] [phone] Hemoglobin A1c 7.2 % Normal 2 Estimated Average Glucose 160 mg/dL High 60-110 Laboratory test finding 07/18/[address] [address] [phone] Ammonia 55 uMOL/L High <32 Comprehensive Metabolic Profil 07/18/[address] [address] [phone] Glucose, Fasting 170 mg/dL High 70-100 Blood Urea Nitrogen 15 mg/dL Normal 7-18 Creatinine For GFR 0.75 mg/dL Normal 0.55-1.30 Glomerular Filtration Rate > 60.0 Normal >45 3 Sodium Level 142 mEq/L Normal 136-145 Potassium [...] Normal 3.2-5.2 Albumin/Globulin Ratio 0.8 Low 1.2-2.2 CBC With Differential 07/18/2020 [facility] [address] [place] [address] [phone] White Blood Count 6.1 10 Normal 4.0-10.0 [...] 36.0-66.0 Lymph % 21.0 % Low 24.0-44.0 [place] % 8.9 % High 0.0-5.0 Eos % 10.3 % High 0.0-3.0 Baso % 1.0 % Normal 0.0-1.0 Immature Granulocyte % 0.5 % Normal 0-3.0 Nucleated Red Blood Cell % 0.0 % Normal 0-0 Neutrophils # 3.6 10 Normal 1.5-8.5 Lymph # 1.3 10 Low 1.5-5.0 [place] # 0.5 10 Normal 0.0-0.8 Eos # 0.6 10 High 0.0-0.5 Baso # 0.1 10 Normal 0.0-0.2 Prothrombin Time/Inr 06/24/2020 [facility] Outpatient Test ing (Registration) [address] [place] [address] [phone] Prothrombin Time 14.7 seconds High 12.5-14.3 Inr 1.12 Normal 4 Comprehensive Metabolic Profil 06/24/2020 [facility] Outpa tient Testing (Registration) [address] [place] [address] [phone] Glucose, Fasting 157 mg/dL High 70-100 Blood Urea Nitrogen 11 mg/dL Normal 7-18 Creatinine For GFR 0.74 mg/dL Normal 0.55-1.30 Glomerular Filtration Rate > 60.0 Normal >45 5 Sodium Level 144 mEq/L Normal 136-145 Potassium [...] 0.9 Low 1.2-2.2 Complete Blood Count 06/24/2020 [facility] Outpatient Test ing (Registration) [address] [place] [address] [phone] White Blood Count 4.6 10 Normal 4.0-10.0 [...] % Normal 0-0 Laboratory test finding 06/24/2020 [facility] Outpatient T esting (Registration) [address] [place] [address] [phone] Erythrocyte Sedimentation Rate 32 mm/hr High 0 -30 Laboratory test finding 05/31/2020 [facility] Outpatient T esting (Registration) [address] [place] [address] [phone] Blood Urea Nitrogen 12 mg/dL Normal 7-18 Creatinine With GFR 05/31/2020 [facility] Outpatient Testi ng (Registration) [address] [place] [address] [phone] Creatinine For GFR 0.69 mg/dL Normal 0.55-1.30 Glomerular Filtration Rate > 60.0 Normal >45 6 Complete Blood Count 05/31/2020 [facility] Outpatient Test ing (Registration) [address] [place] [address] [phone] White Blood Count 6.2 10 Normal 4.0-10.0 [...] 0.0 % Normal 0-0 Prothrombin Time/Inr 05/31/2020 [facility] Outpatient Test ing (Registration) [address] [place] [address] [phone] Prothrombin Time 13.7 seconds Normal 12.5-14.3 Inr 1.03 Normal 7 Comprehensive Metabolic Profil 05/31/2020 [facility] Outpa tient Testing (Registration) [address] [place] [address] [phone] Glucose, Fasting 116 mg/dL High 70-100 Blood Urea Nitrogen 12 mg/dL Normal 7-18 Creatinine For GFR 0.64 mg/dL Normal 0.55-1.30 Glomerular Filtration Rate > 60.0 Normal >45 8 Sodium Level 141 mEq/L Normal 136-145 Potassium [...] 0.8 Low 1.2-2.2 Laboratory test finding 05/31/2020 [facility] Outpatient Ernie jerryambrose (Registration) [address] [place] [address] [phone] Alpha Fetoprotein Tumor Quant 3.8 NG/ML Normal <8 .1 9 Comprehensive Metabolic Profil 04/26/[address] [address] [phone] Glucose, Fasting 214 mg/dL High 70-100 Blood [...] 1.0 Low 1.2-2.2 Laboratory test finding 04/26/[address] [address] [phone] Ammonia 24 uMOL/L Normal <32 Hemoglobin A1c 04/26/2020 [facility] nter [address] [place] [address] [phone] Hemoglobin A1c 6.6 % Normal 11 Estimated Average Glucose 143 mg/dL High 60-110 CBC With Differential 04/26/[address] [address] [phone] White Blood Count 5.9 10 Normal 4.0-10.0 [...] 36.0-66.0 Lymph % 28.8 % Normal 24.0-44.0 [place] % 7.5 % High 0.0-5.0 Eos % 10.2 % High 0.0-3.0 Baso % 1.2 % High 0.0-1.0 Immature Granulocyte % 0.2 % Normal 0-3.0 Nucleated Red Blood Cell % 0.0 % Normal 0-0 Neutrophils # 3.1 10 Normal 1.5-8.5 Lymph # 1.7 10 Normal 1.5-5.0 [place] # 0.4 10 Normal 0.0-0.8 Eos # 0.6 10 High 0.0-0.5 Baso # 0.1 10 Normal 0.0-0.2 Laboratory test finding 04/26/2020 [facility] [address] [place] [address] [phone] Total 25(Oh) Vitamin D 37.2 NG/ML Normal 30.0-100. 0 Ferritin 30 NG/ML Normal 8-252 Iron (Fe) 124 g/dL Normal 50-170 Vitamin B12 Level 1823 pg/mL High 247-911 12 Laboratory test finding 04/21/2020 [facility] Outpatient T esting (Registration) [address] [place] [address] [phone] Platelet Count, Automated 162 10 Normal 150-45 0 Prothrombin Time/Inr 04/21/2020 [facility] Outpatient Test ing (Registration) [address] [place], [place] [address] [phone] Prothrombin Time 14.5 seconds High 11.8-14.0 Inr 1.10 Normal 13 Laboratory test finding 04/21/2020 [facility] Outpatient T esting (Registration) [address] [place] [address] [phone] Partial Thromboplastin Time 35.6 seconds Normal 25 [...] pathogens. DISCLAIMER: Testing was performed using the [employer] SARS-CoV-2 test. This test was developed and its performance characteristics determined by [employer]. This test has not been FDA cleared [...] authorization is terminated or revoked sooner. 2 REFERENCE RANGES: <=5.6% NORMAL 5.7-6.4% SUGGESTS IMPAIRED GLUCOSE META BOLISM/PREDIABETIC >= 6.5% ABNORMAL 3 Units are mL/min/1.73 m2 Chronic Kidney Disease Staging per NKF: Stage I & II GFR >=60 Normal to Mildly Decreased Stage III GFR 30-59 Moderately Decreased Stage IV GFR 15-29 Severely Decreased Stage V GFR <15 Very Little GFR Left ESRD GFR <15 on BIOLOGY TEACHER 4 THERAPUTIC HUMAN INR VALUES INDICATIONS NORMAL [...] Little GFR Left ESRD GFR <15 on BIOLOGY TEACHER 6 Units are mL/min/1.73 m2 Chronic Kidney Disease Staging per NKF: Stage I & II GFR >=60 Normal to Mildly Decreased Stage III GFR 30-59 Moderately Decreased Stage IV GFR 15-29 Severely Decreased Stage V GFR <15 Very Little GFR Left ESRD GFR <15 on BIOLOGY TEACHER 7 THERAPUTIC HUMAN INR VALUES INDICATIONS NORMAL RANGES PROPHYLAXIS/TREATMENT OF: VENOUS THROMBOSIS 2.0-3.0 PULMONARY EMBOLISM 2.0-3.0 PREVENTION OF SYSTEMIC EMBOLISM FROM: TISSUE HEART VALVES 2.0-3.0 ACUTE MYOCARDIAL INFARCTION 2.0-3.0 VALVULAR HEART DISEASE 2.0-3.0 ATRIAL FIBRILLATION 2.0-3.0 MECHANICAL VALVES(HIGH RISK) 2.5-3.5 RECURRENT MYOCARDIAL INFARCTION 2.5-3.5 8 Units are mL/min/1.73 m2 Chronic Kidney Disease Staging per NKF: Stage I & II GFR >=60 Normal to Mildly Decreased Stage III GFR 30-59 Moderately Decreased Stage IV GFR 15-29 Severely Decreased Stage V GFR <15 Very Little GFR Left ESRD GFR <15 on BIOLOGY TEACHER 9 THE AFP ASSAY IS PERFORMED O N THE BevalleyR BY CHEMILUMINESCENCE AND SHOULD NOT BE COMPARED INTERCHANGEABLY WITH OTHER METHODS. IT SHOULD NOT BE USED ALONE A SCREENING TEST OR DIAGNOSIS FOR THE PRESENCE OR ABSENCE OF MALIGNANT DISEASE. THESE RESULTS ARE NOT INTERPRETABLE IN FEMALES. PREDICTIONS OF DISEASE RECURRENCE SHOULD NOT BE BASED SOLELY ON VALUES OBTAINED FROM SERIAL PATIENT SERUM VALUES. 10 Units are mL/min/1.73 m2 Chronic Kidney Disease Staging per NKF: Stage I & II GFR >=60 Normal to Mildly Decreased Stage III GFR 30-59 Moderately Decreased Stage IV GFR 15-29 Severely Decreased Stage V GFR <15 Very Little GFR Left ESRD GFR <15 on BIOLOGY TEACHER 11 REFERENCE RANGES: <=5.6% NORMAL 5.7-6.4% SUGGESTS [...] RISK) 2.5-3.5 RECURRENT MYOCARDIAL INFARCTION 2.5-3.5 Procedures Date Code Description Status 10/01/2020 83113 Electrocardiogram Complete Compl eted Medical Devices Description No Information Available Encounters Type Date Location Provider Dx Diagnosis Office Visit 10/01/2020 1:40p [facility] [place] Kumar Z01.818 Encounter for other preproce dural examination N20.0 Calculus of kidney Office Visit 08/02/2020 11:00a [facility] Maggie Kerr D.O. I10 Essential (primary) hyperten elian F33.1 Major depressive disorder, r ecurrent, moderate E11.9 Type 2 diabetes mellitus wit hout complications G47.33 Obstructive sleep apnea (jessenia lt) (pediatric) Z96.651 Presence of right artificial knee joint Z79.82 longterm (current) use of a spirin Z79.899 Other manager terminal (current) dr hilario therapy K72.90 Hepatic failure, unspecified without coma M54.5 Low back pain N20.0 Calculus of kidney Office Visit 07/02/2020 2:00p [facility] [place] Kumar Z01.818 Encounter for other preproce dural examination 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, NEC, right knee Office Visit 06/07/2020 9:20a [facility] [place] Ann L03.113 Cellulitis of right upper li mb Office Visit 05/01/2020 2:00p [facility] [place] Kumar I10 Essential (primary) hyperten elian Z98.84 Bariatric surgery status F33.1 Major depressive disorder, r ecurrent, moderate E11.9 Type 2 diabetes mellitus wit hout complications G47.33 Obstructive sleep apnea (jessenia lt) (pediatric) G93.41 Metabolic encephalopathy Assessments Date Code Description Provider 10/01/2020 Z01.818 Encounter for other preprocedura l examination [place] Kumar 10/01/2020 N20.0 Calculus of kidney [place] Deal 08/02/2020 I10 Essential (primary) hypertension Maggie Kerr, D.O. 08/02/2020 F33.1 Major depressive disorder, recur rent, moderate Maggie Sharif, D.O. 08/02/2020 E11.9 Type 2 diabetes mellitus without complications Maggie Sharif D.O. 08/02/2020 G47.33 Obstructive sleep apnea (adult) (pediatric) Maggie Sharif, D.O. 08/02/2020 Z96.651 Presence of right artificial kne e joint Maggie Kerr, D.O. 08/02/2020 Z79.82 longterm (current) use of aspir in Maggie Kerr D.O. 08/02/2020 Z79.899 Other residential (current) drug t herapy Maggie Kerr D.O. 08/02/2020 K72.90 Hepatic failure, unspecified wit hout coma Maggie Sharif, D.O. 08/02/2020 M54.5 Low back pain Maggie smart, D.O. 08/02/2020 N20.0 Calculus of kidney Maggie Paniagua, D.O. 07/02/2020 Z01.818 Encounter for other preprocedura l examination [place] Kumar 07/02/2020 M12.861 Other specific arthr opathies, not elsewhere classified, right knee [place] Kumar 06/07/2020 L03.113 Cellulitis of right upper limb [place] Willis 05/01/2020 I10 Essential (primary) hypertension [place] Kumar 05/01/2020 Z98.84 Bariatric surgery status [place] Kumar 05/01/2020 F33.1 Major depressive disorder, recur rent, moderate [place] Kumar 05/01/2020 E11.9 Type 2 diabetes mellitus without complications [place] Kumar 05/01/2020 G47.33 Obstructive sleep apnea (adult) (pediatric) [place] Kumar 05/01/2020 G93.41 Metabolic encephalopathy [place] Kumar Plan of Treatment Future Appointment(s):* 11/06/2020 10:00 am - [place] Kumar at [facility] 10/01/2020 - [place] Kumar* Z01.818 Encounter for other preprocedural examination* New Labs:* CBC With Differential, Ordered: 10/01/20 * Comprehensive Metabolic Profil, Ordered: 10/01/20 * Hemoglobin A1c, Ordered: 10/01/20 * PT & Aptt, Ordered: 10/01/20 * Urine Culture, Ordered: 10/01/20 * New Xrays:* Chest 2 Views, Ordered: 10/01/20 * Comments:* Your exam was unremarkable today, and pending your labs you are deemed medically optimized for your upcoming procedure and at low risk. Do not take your glipizide, metformin or spironolactone the day before or the day of surgery. Call for any concerns. Bring your CPAP to surgery. * Follow up:* As already scheduled. * N20.0 Calculus of kidney Functional Status Description No Information Available Mental Status Description No Information Available Referrals Refer to Dr Reason for Referral Status Appt [facility] This is a 65 year old female with chronic MDD. She is maintained on cymbalta 30 BID with 300 mg Wellbutrin and I have not been successful with weaning her cymbalta (she has liver disease and I would like her on a lower dose). Please evaluate and treat with her liver disease in mind. Sent [address] [place] [address] [phone] Varun Mcduffie MD This is a 65 year old female with known renal calculis s/p lithotripsy with you. She is having hematuria but no pain. Please evaluate and treat. Closed [id number] [place] [address] [place] [address] [phone]
--- OUTSIDE RECORDS SUMMARY | 2020-10-18 08:45 | CCD | Continuity of Care Document ---
Author Author Steff THOMSON PA Organization Unknown Address [address] [facility], [place], [facility] [address] [place] [address] Phone [phone] Care Team Providers Care Drag Out Worker Name Role Phone Maggie Kerr D.O. AUTM [phone] Darian Darnell MD AUTM [phone] [facility] AUTM Problems Active Problems [...] Personal history of primary malignant neoplasm of [facility] Maggie Kerr D.O. Onset: 05/28/2017 Edema Maggie [...] at bedtime as needed for pain istop [id number] 30tabs M25.511 Kely NegronO. 03/18/2019 Bupropion Hydrochloride ER (XL) 300mg Tablets ER 24HR Take One Tablet By Mouth Every Morning 30tabs F33.1 Kely GallegoOMir 03/17/2019 Triamcinolone Acetonide 0.1% Cream Apply To Affected Area(S) On Lower Leg And Left Hand Two Times A Day For 7 Days Then as Needed For Flare Ups 80units Z68.37 Kely Negron OMir 11/08/2018 Atenolol 25mg Tablets take one tablet [...] as directed Unknown BD Ultra-Fine Micro Pen Pryor 6mm X 32 G 32G X 6 [...] Vaccine Lot # U-Flu Given 05/26/2019 Influenza,Unspecified [id number] Given 07/02/2017 Influenza Vaccin e Quadrivalent Preser/Antibiotic Free Im Use [id number] Vital Signs Date Vital Result Comment 10/01/2020 1:38pm BP Systolic 142 mmHg BP Diastolic 74 mmHg Height 66.4 inches 5'6.40" Weight 218.00 lb BMI (Body Mass Index) 34.8 kg/m2 Heart Rate 84 /min Respiratory Rate 18 /min Body Temperature 97.4 F O2 % BldC Oximetry 94 % [place] Body Weight 130 lb 08/02/2020 10:59am BP Systolic 136 mmHg BP Diastolic 72 mmHg Height 66.4 inches 5'6.40" Weight 215.50 lb BMI (Body Mass Index) 34.4 kg/m2 Heart Rate 75 /min Respiratory Rate 18 /min Body Temperature 97.1 F O2 % BldC Oximetry 96 % [place] Body Weight 130 lb Results Test Acquired Date Facility Test Result H/L Range Note Order 10/01/2020 In House Orders EKG see report Laboratory test finding 09/07/2020 [facility] Outpatient T jerrying (Registration) [address] [place], [place] [id number] [phone] Sars Covid-19 Amplification NEGATIVE Normal Nega tive 1 Lipid Panel 07/18/2020 [facility] nter [address] [place] [address] [phone] Triglycerides Level 90 mg/dL Normal <150 Cholesterol Level 116 mg/dL Normal <200 HDL Cholesterol 52 mg/dL Normal >40 LDL Cholesterol 46 mg/dL Normal <100 Non-HDL-C 64 mg/dL Normal Cholesterol Risk Ratio 2.230 Normal <5 Hemoglobin A1c 07/18/2020 [facility] nter [address] [place], [place] [address] [phone] Hemoglobin A1c 7.2 % Normal 2 Estimated Average Glucose 160 mg/dL High 60-110 Laboratory test finding 07/18/[address] [address] [phone] Ammonia 55 uMOL/L High <32 Comprehensive Metabolic Profil 07/18/[address] [address] [phone] Glucose, Fasting 170 mg/dL High 70-100 Blood [...] 0.8 Low 1.2-2.2 CBC With Differential 07/18/2020 [facility] [address] [place] [address] [phone] White Blood Count 6.1 10 Normal 4.0-10.0 [...] 36.0-66.0 Lymph % 21.0 % Low 24.0-44.0 [place] % 8.9 % High 0.0-5.0 Eos % 10.3 % High 0.0-3.0 Baso % 1.0 % Normal 0.0-1.0 Immature Granulocyte % 0.5 % Normal 0-3.0 Nucleated Red Blood Cell % 0.0 % Normal 0-0 Neutrophils # 3.6 10 Normal 1.5-8.5 Lymph # 1.3 10 Low 1.5-5.0 [place] # 0.5 10 Normal 0.0-0.8 Eos # 0.6 10 High 0.0-0.5 Baso # 0.1 10 Normal 0.0-0.2 Prothrombin Time/Inr 06/24/2020 [facility] Outpatient Test ing (Registration) [address] [place] [address] [phone] Prothrombin Time 14.7 seconds High 12.5-14.3 Inr 1.12 Normal 4 Comprehensive Metabolic Profil 06/24/2020 [facility] Outpa tient Testing (Registration) [address] [place] [address] [phone] Glucose, Fasting 157 mg/dL High 70-100 Blood [...] 0.9 Low 1.2-2.2 Complete Blood Count 06/24/2020 [facility] Outpatient Test ing (Registration) [address] [place] [address] [phone] White Blood Count 4.6 10 Normal 4.0-10.0 [...] % Normal 0-0 Laboratory test finding 06/24/2020 [facility] Outpatient T esting (Registration) [address] [place] [address] [phone] Erythrocyte Sedimentation Rate 32 mm/hr High 0 -30 Laboratory test finding 05/31/2020 [facility] Outpatient T esting (Registration) [address] [place] [address] [phone] Blood Urea Nitrogen 12 mg/dL Normal 7-18 Creatinine With GFR 05/31/2020 [facility] Outpatient Testi ng (Registration) [address] [place] [address] [phone] Creatinine For GFR 0.69 mg/dL Normal 0.55-1.30 Glomerular Filtration Rate > 60.0 Normal >45 6 Complete Blood Count 05/31/2020 [facility] Outpatient Test ing (Registration) [address] [place] [address] [phone] White Blood Count 6.2 10 Normal 4.0-10.0 [...] 0.0 % Normal 0-0 Prothrombin Time/Inr 05/31/2020 [facility] Outpatient Test ing (Registration) [address] [place] [address] [phone] Prothrombin Time 13.7 seconds Normal 12.5-14.3 Inr 1.03 Normal 7 Comprehensive Metabolic Profil 05/31/2020 [facility] Outpa tient Testing (Registration) [address] [place] [address] [phone] Glucose, Fasting 116 mg/dL High 70-100 Blood [...] 0.8 Low 1.2-2.2 Laboratory test finding 05/31/2020 [facility] Outpatient Ernie jerryambrose (Registration) [address] [place] [address] [phone] Alpha Fetoprotein Tumor Quant 3.8 NG/ML Normal <8 .1 9 Comprehensive Metabolic Profil 04/26/[address] [address] [phone] Glucose, Fasting 214 mg/dL High 70-100 Blood [...] 1.0 Low 1.2-2.2 Laboratory test finding 04/26/[address] [address] [phone] Ammonia 24 uMOL/L Normal <32 Hemoglobin A1c 04/26/2020 [facility] nter [address] [place] [address] [phone] Hemoglobin A1c 6.6 % Normal 11 Estimated Average Glucose 143 mg/dL High 60-110 CBC With Differential 04/26/[address] [address] [phone] White Blood Count 5.9 10 Normal 4.0-10.0 [...] 36.0-66.0 Lymph % 28.8 % Normal 24.0-44.0 [place] % 7.5 % High 0.0-5.0 Eos % 10.2 % High 0.0-3.0 Baso % 1.2 % High 0.0-1.0 Immature Granulocyte % 0.2 % Normal 0-3.0 Nucleated Red Blood Cell % 0.0 % Normal 0-0 Neutrophils # 3.1 10 Normal 1.5-8.5 Lymph # 1.7 10 Normal 1.5-5.0 [place] # 0.4 10 Normal 0.0-0.8 Eos # 0.6 10 High 0.0-0.5 Baso # 0.1 10 Normal 0.0-0.2 Laboratory test finding 04/26/2020 [facility] [address] [place] [address] [phone] Total 25(Oh) Vitamin D 37.2 NG/ML Normal 30.0-100. 0 Ferritin 30 NG/ML Normal 8-252 Iron (Fe) 124 g/dL Normal 50-170 Vitamin B12 Level 1823 pg/mL High 247-911 12 Laboratory test finding 04/21/2020 [facility] Outpatient T esting (Registration) [address] [place] [address] [phone] Platelet Count, Automated 162 10 Normal 150-45 0 Prothrombin Time/Inr 04/21/2020 [facility] Outpatient Test ing (Registration) [address] [place], [place] [address] [phone] Prothrombin Time 14.5 seconds High 11.8-14.0 Inr 1.10 Normal 13 Laboratory test finding 04/21/2020 [facility] Outpatient T esting (Registration) [address] [place] [address] [phone] Partial Thromboplastin Time 35.6 seconds Normal 25 [...] pathogens. DISCLAIMER: Testing was performed using the [employer] SARS-CoV-2 test. This test was developed and its performance characteristics determined by [employer]. This test has not been FDA cleared [...] Little GFR Left ESRD GFR <15 on SNACK STEWARD 4 THERAPUTIC HUMAN INR VALUES INDICATIONS NORMAL [...] Little GFR Left ESRD GFR <15 on SNACK STEWARD 6 Units are mL/min/1.73 m2 Chronic Kidney Disease Staging per NKF: Stage I & II GFR >=60 Normal to Mildly Decreased Stage III GFR 30-59 Moderately Decreased Stage IV GFR 15-29 Severely Decreased Stage V GFR <15 Very Little GFR Left ESRD GFR <15 on SNACK STEWARD 7 THERAPUTIC HUMAN INR VALUES INDICATIONS NORMAL [...] Little GFR Left ESRD GFR <15 on SNACK STEWARD 9 THE AFP ASSAY IS PERFORMED O N THE [employer] BY CHEMILUMINESCENCE AND SHOULD NOT BE COMPARED [...] Little GFR Left ESRD GFR <15 on SNACK STEWARD 11 REFERENCE RANGES: <=5.6% NORMAL 5.7-6.4% SUGGESTS [...] 2.5-3.5 Procedures Date Code Description Status 10/01/2020 55757 Electrocardiogram Complete Compl eted Medical Devices Description No Information Available Encounters Type Date Location Provider Dx Diagnosis Office Visit 08/02/2020 11:00a [facility] Maggie Kerr, D.O. 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 08/02/2020 E11.9 Type 2 diabetes mellitus without complications Maggie Sharif D.O. 08/02/2020 G47.33 Obstructive sleep apnea (adult) (pediatric) Maggie Sharif D.O. 08/02/2020 Z96.651 Presence of right artificial kne e joint Maggie Kerr D.O. 08/02/2020 Z79.82 correction (current) use of aspir in Maggie Kerr D.O. 08/02/2020 Z79.899 Other head of conservation (current) drug t herapy Maggie Kerr D.O. 08/02/2020 K72.90 Hepatic failure, unspecified wit hout coma Maggie Sharif D.O. 08/02/2020 M54.5 Low back pain Maggie smart D.O. 08/02/2020 N20.0 Calculus of kidney Maggie [...] 11/06/2020 10:00 am - [place] Kumar at [facility] 10/01/2020 - [place] Kumar* Z01.818 Encounter for [...] to Dr Reason for Referral Status Appt [facility] This is a 65 year old female with chronic MDD. She is maintained on cymbalta 30 BID with 300 mg Wellbutrin and I have not been successful with weaning her cymbalta (she has liver disease and I would like her on a lower dose). Please evaluate and treat with her liver disease in mind. Sent [address] [place] [address] [id number] [phone] Varun Mcduffie MD This is a 65 year old female with known renal calculis s/p lithotripsy with you. She is having hematuria but no pain. Please evaluate and treat. Closed [address] [place] [address] [address] [phone]
--- OUTSIDE RECORDS SUMMARY | 2020-10-18 08:45 | CCD ---
Author Author [facility] Organization [facility] Address Unknown Phone Unavailable Care Team Providers Care Fire Engine Operator Name Role Phone Bailee Castillo Unavailable PROBLEMS Type Condition ICD9-CM Code [id number] Code Onset Dates Condition S tatus W/U Status Risk SNOMED Code Notes Problem Left renal stone N20.0 Active confirmed 955 72424 Problem Kidney stone N20.0 Active confirmed 0229263 7 Problem Preop testing Z01.818 Active confirmed 28777 9001 Problem Urinary tract infection, site not specified N39.0 Active confirmed 01471766 Problem Hydronephrosis with urinary obstruction due to renal calcu saran N13.2 Active confirmed 30050792 ALLERGIES Allergen (clinical drug ingredient) Drug/Non Drug Allergy do cumented on EMR Reaction Allergy Type Onset Date Status tape Unknown Non Drug Allergy Active ENCOUNTERS from 1955 to 2020-10-01 Encounter Location Date Provider Diagnosis [facility] Urology [id number] [place] [address] [place] [address] Sep Bailee Castillo Kidney stone N20.0 IMMUNIZATIONS No Information SOCIAL HISTORY Tobacco Use: Social History Observation Description Date Details (start date - stop date) Former Smoker Sex Assigned At : Social History Observation Description Sex Assigned At Unknown Language: Question Answer Notes Languages spoken: Czech Congregational: Question Answer Notes Congregational No islam beliefs that would impact health care. Sexual [...] Information RESULTS No Results REASON FOR VISIT KUB post ESWL MEDICAL (GENERAL) HISTORY Type Description Date Medical [...] Treatment Notes Treatm ent Clinical Notes Sep, Kidney stone (ICD-10 - N20.0) PLAN OF TREATMENT Medication Medication Name Sig Start Date Stop Date Percocet 5-325 MG 1 tablet as needed Orally every 6 hrs, MDD 4 0 4 Sep, 2020 Treatment Notes Test Name Order Date PLZ ABDOMEN 1 VIEW (KUB) 2020-09-28 Next Appt Details Provider Name:Georgina Bettencourt, 2020-10-02 08:30:00 AM, [address] [facility], 1st Floor, [place], [address], Provider Name:Bailee Castillo, 2020-10-22 8 02:00:00 PM, [address], [place], [address], Insurance Providers Payer Name Payer Address Payer Phone Insured Name Patient Relati onship to Insured Coverage Start Date Coverage End Date [facility] [address] [facility] [phone] LEROY OWEN self
--- OUTSIDE RECORDS SUMMARY | 2020-10-18 08:46 | CCD ---
Author Author [facility] Organization [facility] Address Unknown Phone Unavailable Care Team Providers Care Crepe Laminator Operator Name Role Phone RuizAaron Unavailable PROBLEMS Type Condition ICD9-CM Code [id number] Code Onset Dates Condition S tatus SNOMED Code Notes Problem Preop testing Z01.818 Active 041821679 Problem Hydronephrosis with urinary obstruction due to renal calcu saran N13.2 Active 75460180 Problem Kidney stone N20.0 Active 60894249 Problem Urinary tract infection, site not specified N39.0 Active 63899376 ALLERGIES Allergen (clinical drug ingredient) Drug/Non Drug Allergy do cumented on EMR Reaction Allergy Type Onset Date Status tape Unknown Non Drug Allergy Active ENCOUNTERS from 1955 to 2020-09-16 Encounter Location Date Provider Diagnosis [facility] Urology [address] [place] [address] Aug Aaron Ruiz IMMUNIZATIONS No Information SOCIAL HISTORY Tobacco Use: Social History Observation Description Date Details (start date - stop date) Former Smoker Sex Assigned At : Social History Observation Description Sex Assigned At Unknown Language: Question Answer Notes Languages spoken: Lao Congregation: Question Answer Notes Congregation No samaritan beliefs that would impact health care. Sexual [...] Notes Start Da te End Date Status Xifaxan 550 MG 1 tablet Orally Twice a day for 30 day(s) Active Magnesium Oxide 400 MG 1 tablet as needed Orally Once a day for 30 da y(s) Active Pantoprazole Sodium 40 MG 1 tablet Orally Once a day for 30 day(s) Active Citracal Plus - as directed Orally A ctive Propranolol HCl ER 60 MG 1 capsule Orally Once a day for 30 day(s) Active Bactrim DS 800-160 MG 1 tablet Orally as directed- 1 hour prior to cystoscopy Apr, Not-Taking Dicyclomine HCl 10 MG 2 capsules Orally prn Active Cetirizine HCl 10 MG 1 tablet Orally Once a day for 30 day(s) Active Duloxetine HCl 60 MG 1 capsule Orally Once a day for 30 day(s) Active Montelukast Sodium 10 MG 1 tablet Orally Once a day for 30 day(s) Active Montelukast Sodium 10 MG 1 tablet Orally Once a day for 30 day(s) Active May Use Active Percocet 5-325 MG 1 tablet as needed Orally every 6 hrs Active Ranitidine HCl 150 MG 1 tablet Orally Once a day for 30 day(s) Not-Taking Dicyclomine HCl 20 MG 1 tablet Orally Three times a day for 30 day(s) Active Spironolactone 25 MG 1 tablet Orally for 30 day(s) Active Xifaxan 550 MG 1 tablet Orally Twice a day for 30 day(s) Not-Taking Metformin HCl 1000 MG 1 tablet with a meal Orally twice a day Active GlipiZIDE 5 MG 1 tablet Orally Once a day for 30 day(s) Active Lactulose 10 GM/15ML 15 ml Orally Once a day for 30 day(s) Active Cyclobenzaprine HCl 10 MG 1 tablet as needed Orally Three times a day Active Oxybutynin Chloride ER 10 MG 1 tablet Orally Once a day for 30 day(s) Active Potassium 1 tab Oral Active ProAir HFA 108 (90 Base) MCG/ACT 2 puffs as needed Inhalation every 6 hrs Active BuPROPion HCl ER (XL) 300 MG 1 tablet in the morning O rally Once a day for 30 day(s) Active Atenolol 25 MG 1 tablet Orally Once a day for 30 day(s) Not-Taking Aspirin 81 MG 1 tablet Orally Once a day for 30 day(s) Not-Taking Triamcinolone Acetonide 0.1 % 1 application to affecte d area Externally Twice a day Active PROCEDURES No Information RESULTS No Results REASON FOR VISIT 09/19/2020 appt MEDICAL (GENERAL) HISTORY Type Description Date Medical [...] Information ASSESSMENTS No Information PLAN OF TREATMENT Next Appt Details Provider Name:Aaron Ruiz, 2020-09-19 01:15:00 PM, [address] [facility] [place], [address], Provider Name:Georgina Bettencourt, 2020-10-01 10:45:00 AM, [address] [place], [address], Insurance Providers Payer Name Payer Address Payer Phone Insured Name Patient Relati onship to Insured Coverage Start Date Coverage End Date [facility] [employer] [facility] [address] [facility] [phone] LEROY OWEN self
--- OUTSIDE RECORDS SUMMARY | 2020-10-18 08:46 | CCD ---
Author Author [facility] Organization [facility] Address Unknown Phone Unavailable Care Team Providers Care Automotive Machinist Apprentice Name Role Phone Aaron Ruiz Unavailable PROBLEMS Type Condition ICD9-CM Code [id number] Code Onset Dates Condition S tatus SNOMED Code Notes Problem Preop testing Z01.818 Active 440913816 Problem Hydronephrosis with urinary obstruction due to renal calcu saran N13.2 Active 25049816 Problem Kidney stone N20.0 Active 60027367 Problem Urinary tract infection, site not specified N39.0 Active 17204995 ALLERGIES Allergen (clinical drug ingredient) Drug/Non Drug Allergy do cumented on EMR Reaction Allergy Type Onset Date Status tape Unknown Non Drug Allergy Active ENCOUNTERS from 1955 to 2020-09-11 Encounter Location Date Provider Diagnosis [facility] Urology [address] [place] [address] Aug Aaron Ruiz Kidney stone N20.0 and Hydronephrosis wi th urinary obstruction due to renal calculus N13.2 IMMUNIZATIONS No Information SOCIAL HISTORY Tobacco Use: Social History Observation Description Date Details (start date - stop date) Former Smoker Sex Assigned At : Social History Observation Description Sex Assigned At Unknown Language: Question Answer Notes Languages spoken: Upper Sorbian Restorationist: Question Answer Notes Restorationist No protestant beliefs that would impact health care. Sexual [...] FOR REFERRAL No Information VITAL SIGNS Weight 215 lbs Aug, Height 70 in Aug, BMI 30.85 kg/m2 Aug, Heart Rate 63 /min Aug, Respiratory Rate 18 /min Aug, Oximetry 97 Aug, Blood pressure systolic 126 mm Hg Aug, Blood pressure diastolic 78 mm Hg Aug, MEDICATIONS Medication SIG (Take, [...] Information RESULTS No Results REASON FOR VISIT f/u with ct results MEDICAL (GENERAL) HISTORY Type Description Date Medical [...] Notes Aug, Kidney stone (ICD-10 - N20.0) Patient will need a follow-up CT scan and if the stone is still obstructing, she will need a stent insertion tomorrow. 14 Aug, 2020 Hydronephrosis with urinary obstruction due to renal calculus (ICD- 10 - N13.2) PLAN OF TREATMENT Treatment Notes Assessment Notes Clinical Notes Kidney stone Patient will need a follow-up CT scan and if the stone is still obstructing, she will need a stent insertion tomorrow. Next Appt Details 4 Weeks Reason: Provider Name:Aaron Arely Ruiz, 2020-09-19 01:15:00 PM, [address], [place], [address], Provider Name:Georgina Bettencourt, 2020-10-01 10:45:00 AM, [address] [place], [address], Insurance Providers Payer Name Payer Address Payer Phone Insured Name Patient Relati onship to Insured Coverage Start Date Coverage End Date [facility] COMMUN[employer] PLAN [facility] [address] [facility] [phone] LEROY OWEN self
--- OUTSIDE RECORDS SUMMARY | 2020-10-18 08:49 | CCD ---
Author Author [facility] Organization [facility] Address Unknown Phone Unavailable Care Team Providers Care Sample Book Maker Name Role Phone NC, JLAM Unavailable Unavailable MCELHERAN, ALICIA PA Unavailable Unavailable [...] Unavailable MCELHERAN, ALICIA PA Unavailable Unavailable MCELHERAN, AILCIA PA Unavailable Unavailable MCELHERAN, ALICIA PA Unavailable Unavailable MCELHERAN, ALICIA PA Unavailable Unavailable MCELHERAN, ALICIA PA Unavailable Unavailable MCELHERAN, ALICIA PA Unavailable Unavailable MCELHERAN, ALICIA PA Unavailable Unavailable MCELHERAN, ALICIA PA Unavailable Unavailable MCELHERAN, ALICIA PA Unavailable Unavailable MCELHERAN, ALICIA PA Unavailable Unavailable Fons, M Sandy SKIN LIFTER BACON Unavailable Unavailable Fons, M Sandy SKIN LIFTER BACON Unavailable Unavailable Fons, M Sanyd SKIN LIFTER BACON Unavailable Unavailable Fons, M Sandy SKIN LIFTER BACON Unavailable Unavailable Fons, M Sandy SKIN LIFTER BACON Unavailable Unavailable Fons, M Sandy SKIN LIFTER BACON Unavailable Unavailable Fons, M Sandy SKIN LIFTER BACON Unavailable Unavailable Fons, M Sandy SKIN LIFTER BACON Unavailable Unavailable Fons, M Sandy SKIN LIFTER BACON Unavailable Unavailable Fons, M Sandy SKIN LIFTER BACON Unavailable Unavailable Fons, M Sandy SKIN LIFTER BACON Unavailable Unavailable Fons, M Sandy SKIN LIFTER BACON Unavailable Unavailable Fons, M Sandy SKIN LIFTER BACON Unavailable Unavailable Fons, M Sandy SKIN LIFTER BACON Unavailable Unavailable Fons, M Sandy SKIN LIFTER BACON Unavailable Unavailable Fons, M Sandy SKIN LIFTER BACON Unavailable Unavailable Fons, M Sandy SKIN LIFTER BACON Unavailable Unavailable Fons, M Snady SKIN LIFTER BACON Unavailable Unavailable Fons, M Sandy SKIN LIFTER BACON Unavailable Unavailable Fons, M Sandy SKIN LIFTER BACON Unavailable Unavailable Fons, M Sandy SKIN LIFTER BACON Unavailable Unavailable Fons, M Sandy SKIN LIFTER BACON Unavailable Unavailable Fons, M Sandy SKIN LIFTER BACON Unavailable Unavailable Fons, M Sandy SKIN LIFTER BACON Unavailable Unavailable Fons, M Sandy SKIN LIFTER BACON Unavailable Unavailable Fons, M Sandy SKIN LIFTER BACON Unavailable Unavailable Fons, M Sandy SKIN LIFTER BACON Unavailable Unavailable Fons, M Sandy SKIN LIFTER BACON Unavailable Unavailable Fons, M Sandy SKIN LIFTER BACON Unavailable Unavailable Fons, M Sandy SKIN LIFTER BACON Unavailable Unavailable Fons, M Sandy SKIN LIFTER BACON Unavailable Unavailable Fons, M Sandy SKIN LIFTER BACON Unavailable Unavailable Fons, M Sandy SKIN LIFTER BACON Unavailable Unavailable Fons, M Sandy SKIN LIFTER BACON Unavailable Unavailable Fons, M Sandy SKIN LIFTER BACON Unavailable Unavailable Fons, M Sandy SKIN LIFTER BACON Unavailable Unavailable Fons, M Sandy SKIN LIFTER BACON Unavailable Unavailable Fons, M Sandy SKIN LIFTER BACON Unavailable Unavailable Fons, M Sandy SKIN LIFTER BACON Unavailable Unavailable Fons, M Sandy SKIN LIFTER BACON Unavailable Unavailable Fons, M Sandy SKIN LIFTER BACON Unavailable Unavailable Fons, M Sandy SKIN LIFTER BACON Unavailable Unavailable Fons, M Sandy SKIN LIFTER BACON Unavailable Unavailable Fons, M Sandy SKIN LIFTER BACON Unavailable Unavailable Fons, M Sandy SKIN LIFTER BACON Unavailable Unavailable Fons, M Sandy SKIN LIFTER BACON Unavailable Unavailable Fons, M Sandy SKIN LIFTER BACON Unavailable Unavailable Fons, M Sandy SKIN LIFTER BACON Unavailable Unavailable Fons, M Sandy SKIN LIFTER BACON Unavailable Unavailable Fons, M Sandy SKIN LIFTER BACON Unavailable Unavailable Fons, M Sandy SKIN LIFTER BACON Unavailable Unavailable Fons, M Sandy SKIN LIFTER BACON Unavailable Unavailable Fons, M Sandy SKIN LIFTER BACON Unavailable Unavailable Fons, M Sandy SKIN LIFTER BACON Unavailable Unavailable Fons, M Sandy SKIN LIFTER BACON Unavailable Unavailable Fish, B Twin RUVALCABA Unavailable [...] Unavailable Fish, B Twin RUVALCABA Unavailable Unavailable Jacobs, A Nicolle PA Unavailable Jacobs, [...] Jacobs, A Nicolle PA Unavailable Jacobs, A Nioclle PA Unavailable Jacobs, A Nicolle PA Unavailable Jacobs, A Nicolle PA Unavailable Jacobs, A Nicolle PA Unavailable Jacobs, A Nicolle PA Unavailable Jacobs, A Nicolle PA Unavailable aJcobs, A Nicolle PA Unavailable Fish, B Twin [...] Fish, B Twin RUVALCABA Unavailable Unavailable Fish, Philip Murcia MD Unavailable [...] Unavailable Fish, Philip Murcia MD Unavailable Unavailable Ryao Regan MD Unavailable Unavailable Raoy Regan MD Unavailable Unavailable Rayo Regan MD Unavailable Unavailable aRyo Regan MD Unavailable Unavailable Rayo Regan MD [...] Unavailable Unavailable Rayo Regan MD Unavailable Unavailable aRyo Regan MD Unavailable Unavailable Rayo Regan MD [...] Unavailable Unavailable Rayo Regan MD Unavailable Unavailable Jorge RUVALCABA, Twin RUVALCABA Unavailable [phone] Jorge RUVALCABA, Twin RUVALCABA Unavailable [phone] Jorge RUVALCABA, Twin RUVALCABA Unavailable [phone] Jorge RUVALCABA, Twin RUVALCABA Unavailable [phone] Jorge RUVALCABA, Twin RUVALCABA Unavailable [phone] Jorge RUVALCABA, Twin RUVALCABA Unavailable [phone] Jorge RUVALCABA, Twin RUVALCABA Unavailable [phone] Jorge RUVALCABA, Twin RUVALCABA Unavailable [phone] Jorge RUVALCABA, Twin RUVALCABA Unavailable [phone] Jorge RUVALCABA, Twin RUVALCABA Unavailable [phone] Jorge RUVALCABA, Twin RUVALCABA Unavailable [phone] Jorge RUVALCABA, Twin RUVALCABA Unavailable [phone] Jorge RUVALCABA, Twin RUVALCABA Unavailable [phone] Jorge RUVALCABA, Twin RUVALCABA Unavailable [phone] Jorge RUVALCABA, Twin RUVALCABA Unavailable [phone] Twin Patel MD, MD Unavailable [phone] Jorge RUVALCABA, Twin RUVALCABA Unavailable [phone] Jorge RUVALCABA, Twin RUVALCABA Unavailable [phone] Jorge RUVALCABA, Twin RUVALCABA Unavailable [phone] Jorge RUVALCABA, Twin RUVALCABA Unavailable [phone] Jorge RUVALCABA, Twin RUVALCABA Unavailable [phone] Jorge RUVALCABA, Twin RUVALCABA Unavailable [phone] Amada Patel MD Unavailable Unavailable Amada Patel [...] Unavailable Amanda, Amada Kathy MD Unavailable Unavailable AmandaAmada rao MD Unavailable Unavailable AmandaAmada rao MD Unavailable Unavailable AmandaAmada rao MD Unavailable Unavailable Amanda, Amada Chavez MD Unavailable Unavailable Amanda, Amada Chavez MD Unavailable Unavailable Amanda, Amada Chavez MD Unavailable Unavailable AmandaAmada rao MD Unavailable Unavailable AmandaAmada MD Unavailable Unavailable AmandaAmada MD Unavailable Unavailable AmandaAmada rao MD Unavailable Unavailable AmandaAmada rao MD Unavailable Unavailable O'will, A Alicia PA Unavailable [...] Unavailable EARL, M STANLEY PA Unavailable Unavailable Millie FELDMAN MD Unavailable Unavailable [...] Unavailable Unavailable FELDMANMillie Colon MD Unavailable Unavailable Millie FELDMAN MD Unavailable Unavailable Millie FELDMAN MD Unavailable Unavailable Millie FELDMAN MD Unavailable Unavailable Millie FELDMAN MD Unavailable Unavailable Millie FELDMAN MD Unavailable Unavailable Millie FELDMAN MD Unavailable Unavailable FELDMANMillie Colon MD Unavailable Unavailable Millie FELDMAN MD Unavailable [...] Unavailable Unavailable Millie FELDMAN MD Unavailable Unavailable Manuel, Twin PA Unavailable [...] Unavailable Sg, K Georgina PA Unavailable Unavailable ISRAEL SINGH Unavailable Unavailable POLO-RAHUL, CRISTÓBAL DO Unavailable Unavailable [...] Unavailable Unavailable POLO-RAHUL, CRISTÓBAL DO Unavailable Unavailable PLOO-RAHUL, CRISTÓBAL DO Unavailable Unavailable POLO-RAHUL, CRISTÓBAL DO Unavailable Unavailable POLO-RAHUL, CRISTÓBAL DO Unavailable Unavailable POLO-RAHLU, CRISTÓBAL DO Unavailable Unavailable POLO-RAHUL, CRISTÓBAL DO [...] Unavailable Unavailable POLO-RAHUL, CRISTÓBAL DO Unavailable Unavailable PLOO-RAHUL, CRISTÓBAL DO Unavailable Unavailable POLO-RAHUL, CRISTÓBAL DO [...] Chavez MD Unavailable Unavailable Amanda, Amada Kathy RUVALCABA Unavailable Unavailable Amanda, Amada Kathy RUVALCABA Unavailable Unavailable Amanda, Amadarenata Chavez MD Unavailable Unavailable Amanda, Amada Kathy RUVALCABA Unavailable Unavailable Amanda, Amada Kathy RUVALCABA Unavailable Unavailable Aamnda, Amadarenata Chavez MD Unavailable Unavailable Amanda, Amada Kathy RUVALCABA Unavailable Unavailable Amanda, Amada Kathy RUVALCABA Unavailable Unavailable Amanda, Amadarenata Chavez MD Unavailable Unavailable Amanda, Amada Chavez MD Unavailable Unavailable Ana Rosa, L Yissel FULL STACK ENGINEER Unavailable Unavailable Ana Rosa, L Yissel FULL STACK ENGINEER Unavailable Unavailable Ana Rosa, L Yissel FULL STACK ENGINEER Unavailable Unavailable Ana Rosa, L Yissel FULL STACK ENGINEER Unavailable Unavailable Ana Rosa, L Yissel FULL STACK ENGINEER Unavailable Unavailable Ana Rosa, L Yissel FULL STACK ENGINEER Unavailable Unavailable Ana Rosa, L Yissel FULL STACK ENGINEER Unavailable Unavailable Ana Rosa, L Yissel FULL STACK ENGINEER Unavailable Unavailable Ana Rosa, L Yissel FULL STACK ENGINEER Unavailable Unavailable Ana Rosa, L Yissel FULL STACK ENGINEER Unavailable Unavailable Ana Rosa, L Yissel FULL STACK ENGINEER Unavailable Unavailable Ana Rosa, L Yissel FULL STACK ENGINEER Unavailable Unavailable Ana Rosa, L Yissel FULL STACK ENGINEER Unavailable Unavailable Ana Rosa, L Yissel FULL STACK ENGINEER Unavailable Unavailable Ana Rosa, L Yissel FULL STACK ENGINEER Unavailable Unavailable Ana Rosa, L Yissel FULL STACK ENGINEER Unavailable Unavailable Ana Rosa, L Yissel FULL STACK ENGINEER Unavailable Unavailable Ana Rosa, L Yissel FULL STACK ENGINEER Unavailable Unavailable Ana Rosa, L Yissel FULL STACK ENGINEER Unavailable Unavailable Ana Rosa, L Yissel FULL STACK ENGINEER Unavailable Unavailable Ana Rosa, L Yissel FULL STACK ENGINEER Unavailable Unavailable Ana Rosa, L Yissel FULL STACK ENGINEER Unavailable Unavailable Re-disclosure Warning The records [...] is protected by Article 27-F of the [place] State Public Health law. If you continue you may have access to information: Regarding HIV / AIDS; Provided by facilities licensed or operated by the [facility] Office of Mental Health; or Provided by the [facility] Office for People With Developmental Disabilities. If such information is present, then the following [facility] mandated warning applies: This information has been [...] law may result in a fine or retirement sentence or both. A general authorization for the release of medical or other information is NOT sufficient authorization for further disc losure. Allergies and Adverse Reactions Type Description Substance Reaction Status Data Source(s ) Drug Allergy NKDA NKDA MEDENT ([facility]) Drug Allergy Drug Allergy NKDA MED[facility] ([facility]) Family History Family Member Name Family Member Gender Family Member Status Date o f Status Description Data Source(s) Unknown Unknown Problem MEDENT ([facility], ) Encounters Encounter Providers Location Date Indications Data Source(s ) Outpatient Attender: Kathy Patel MD 03/13/2021 12:00:[address] [facility] [place] Outpatient [address] [facility] [id number] 10/10/2020 12:00:00 AM EST eCW1 ([facility]) Outpatient Attender: Twin [facility] 10/01/2020 12:40:00 PM EST MEDENT ([facility] Unknown [address] [facility] [id number] 09/28/2020 12:00:00 AM EST [facility] Unknown [address] [facility] [id number] 09/27/2020 12:00:00 AM EST eCW1 ([facility]) Outpatient [address] [facility] [address] 09/19/2020 12:00:00 AM EST eCW1 ([facility]) Unknown [address] [facility] [id number] 09/14/2020 12:00:00 AM EST eCW1 ([facility]) Outpatient [address] [facility] [id number] 09/06/2020 12:00:00 AM EST eCW1 ([facility]) Attender: DHEERAJ FELDMAN MDReferrer: Carlos Alberto jorge MD 08/27/2020 08:21:01 PM EST [facility] Outpatient Attender: ISRAEL SINGH 08/27/2020 10:00:00 AM [facility] Office Visit Attender: Twin Falcon MD Physical Therapy 2019 12:00:00 PM EST MEDENT ([facility]) Outpatient [address] [facility] [id number] 08/20/2020 12:00:00 AM EST eCW1 ([facility]) Outpatient Attender: Sandy RODRIGUEZ SJP.[email or web address].[email or web address] 12:00:00 AM EST - 08/03/2020 09:15:06 AM EST [facility] Outpatient Attender: CRISTÓBAL WOOD DO [facility] 08/02/2020 10:00:00 AM EST MEDENT ([facility]) Office Visit Attender: Twin Falcon MD Physical Therapy 2019 12:00:00 PM EST MEDENT ([facility]) Office Visit Attender: ALICIA FRAGOSO Physical Therapy 07/12/2020 12:00:00 PM EST MEDENT ([facility]) Outpatient Attender: Twin [facility] 07/02/2020 01:00:00 PM EST MEDENT ([facility]) Office Visit Attender: ALICIA FRAGOSO Physical Therapy 07/02/2020 09:45:00 AM EST MEDENT ([facility]) Outpatient Attender: Twin Patel MDReferrer: Kathy Patel MD [id number] 06/20/2020 12:49:30 PM EDT [facility]20/2020 12:46:00 PM EDT [facility] Outpatient Attender: Twin Patel MDReferrer: Kathy Patel MD [id number] 06/20/2020 12:29:03 PM EDT [facility] Outpatient Attender: STANLEY FRAGOSO Physical Therapy 05/25 03:00:00 PM EDT MEDENT ([facility]) Outpatient Attender: Yissel Harrell/Sam/Hunter/Reindl 06/13/2020 01:30:00 PM EDT MEDENT ([facility], ) Outpatient Attender: Twin Patel MDReferrer: Kathy Patel MD [id number] 06/12/2020 05:06:31 PM EDT [facility] [...] Twin Patel MDReferrer: Kathy Patel MD [id number] 06/11/2020 10:18:36 AM EDT [facility] Outpatient Attender: Twin Patel MDReferrer: Kathy Patel MD _[id number] 06/11/2020 09:59:46 AM EDT [facility] Outpatient Attender: Twin Patel MDReferrer: Kathy Patel MD _[id number] 06/11/2020 09:53:30 AM EDT [facility] 06/11/2020 08:39:00 AM EDT [facility] Outpatient Attender: Alicia FRAGOSO [facility] 06/07/2020 09:20:00 AM EDT MEDENT ([facility]) Outpatient Attender: STANLEY FRAGOSO Physical Therapy 04/25 01:30:00 PM EDT MEDENT ([facility]) Attender: DHEERAJ FELDMAN MDReferrer: Carlos Alberto jorge MD 05/10/2020 08:20:09 PM EDT [facility] Attender: DHEERAJ FELDMAN MDReferrer: Carlos Alberto jorge MD 05/10/2020 08:20:09 PM EDT [facility] Attender: DHEERAJ FELDMAN MDReferrer: Carlos Alberto jorge MD 05/10/2020 08:20:09 PM EDT [facility] Outpatient Attender: Twin [facility] 05/01/2020 02:00:00 PM EDT MEDENT ([facility]) Outpatient Attender: Twin Falcon MD Physical Therapy 04/11/2020 0 9:15:00 AM EDT MEDENT ([facility]) Outpatient Attender: STANLEY FRAGOSO Physical Therapy 03/24 09:15:00 AM EDT MEDENT ([facility]) Outpatient Attender: DARRELL [facility] 03/28/2020 02:34:02 PM EDT [facility] Outpatient Attender: Nicolle FRAGOSO [id number] 02/21 12:00:00 AM EDT - 03/09/2020 10:41:06 AM EDT Encounter for screening mammogram for ma lignant neoplasm of [facility] Encounter for screening mammogram for ma lignant neoplasm of breast Outpatient Attender: Twin Falcon MD Physical Therapy 02/03/2020 1 1:15:00 AM EDT MEDENT ([facility]) Outpatient Attender: CRISTÓBAL WOOD DO [facility] 01/25/2020 09:00:00 AM EDT MEDENT ([facility]) Outpatient Att[facility]: [facility] 01/11/2020 09:01:01 PM EDT [facility] Outpatient Attender: [facility] 01/11/2020 03:17:00 PM EDT [facility] Outpatient Attender: Twin [facility] 12/09/2019 11:20:00 AM EDT MEDENT ([facility]) Outpatient Attender: Yissel Oseguera FULL STACK ENGINEER Main Office 11/21/2019 01:00:00 PM EDT [facility] ([facility]) Attender: DHEERAJ FELDMAN MDReferrer: Carlos Alberto jorge MD 11/03/2019 08:20:03 PM EDT [facility] Attender: DHEERAJ FELDMAN MDReferrer: Carlos Alberto jorge MD 11/02/2019 08:20:03 PM EDT [facility] Outpatient Attender: [facility] 10/31/2019 08:35:00 AM EDT [facility] Outpatient Attender: Twin [facility]OSO [facility] 10/25/2019 09:20:00 AM EST MEDENT ([facility] [address] [place] [address] 10/11/2019 12:00:00 AM EST eCW1 ([facility]) Outpatient Attender: STANLEY FRAGOSO Physical Therapy 09/24 05:30:00 PM EST MEDENT ([facility]) Outpatient Attender: [facility] 09/21/2019 03:20:00 PM EST [facility] Outpatient Attender: Georgina FRAGOSO 09:49:00 AM EST - 09/15/2019 10:48:00 AM EST [facility] Outpatient Attender: [facility] 09/13/2019 12:45:02 PM EST [facility] Outpatient Attender: [facility] 09/13/2019 08:58:00 AM EST [facility] Outpatient Attender: [facility] 09/13/2019 08:57:00 AM EST [facility] Outpatient Attender: [facility] 09/13/2019 07:53:01 AM EST [facility] Outpatient Attender: Yissel Oseguera FULL STACK ENGINEER Main Office 09/05/2019 10:30:00 AM EST MEDENT ([facility] Outpatient Referrer: Twin Falcon MD 08/29/2019 07:54:00 PM EST [facility] Outpatient Referrer: Twin Falcon MD 08/28/2019 05:00:00 PM EST [facility] Outpatient Attender: CRISTÓBAL WOOD DO [facility] 08/26/2019 10:00:00 AM EST MEDENT ([facility]) Outpatient Attender: Kathy Patel MD [id number] 03/09/20 19 12:00:00 AM EDT - 03/09/2019 11:02:39 AM EDT Encounter for screening mammogram for ma lignant neoplasm of breast [facility] Encounter for screening mammogram for ma lignant neoplasm of breast Medications Medication Brand Name Start Date Product Form Dose Route Admi nistrative Instructions Pharmacy Instructions Status Indications Reaction Description Data Source(s) Miconazole Nitrate 0.0025 MG/MG / Petrol atum 0.814 MG/MG / Zinc Oxide 0.15 MG/MG Topical Ointment [Vusion] Vusion 0.25-15-81.35 % Vusion 0.25-15-81.35 % 10/10/2020 12:00:00 AM EST active Vusion 0.25-15-81.35 % eCW1 ([facility]) Fluocinonide 0.5 MG/ML Topical Solution Fluocinonide 0.05 % Fluocinonide 0.05 % 10/10/2020 12:00:00 AM EST 1.0 {application_to_scalp} active Fluocinonide 0.05 % eCW1 ([facility]) Hydroxyzine Hydrochloride 10 MG Oral Tablet HydrOXYzin e HCl 10 MG HydrOXYzine HCl 10 MG 10/10/2020 12:00:00 AM EST 1.0 {tablet_as_needed} active HydrOXYzine HCl 10 MG eCW1 ([facility]) Acetaminophen 325 MG / Oxycodone Hydroch loride 5 MG Oral Tablet [Percocet] Percocet 5-325 MG Percocet 5-325 MG 09/27/2020 12:00:00 AM EST 1 .0 {tablet_as_needed} active Percocet 5-32 5 MG eCW1 ([facility]) Acetaminophen 325 MG / Oxycodone Hydroch loride 5 MG Oral Tablet [Percocet] Percocet 5-325 MG Percocet 5-325 MG 09/27/2020 12:00:00 AM EST 1 .0 {tablet_as_needed} active Percocet 5-32 5 MG eCW1 ([facility]) Acetaminophen 325 MG / Oxycodone Hydroch loride 5 MG Oral Tablet [Percocet] Percocet 5-325 MG Percocet 5-325 MG 09/27/2020 12:00:00 AM EST 1 .0 {tablet_as_needed} active Percocet 5-32 5 MG eCW1 ([facility]) tramadol hydrochloride 50 MG Oral Tablet Tramadol HCL 08/23/2020 12:00:00 AM EST active MEDENT ([facility] 24 HR Propranolol Hydrochloride 60 MG Ex tended Release Oral Capsule propranolol (INDERAL LA) 60 MG 24 hr capsule propranolol (INDERAL LA) 60 MG 24 hr capsule 08/03/2020 12:00:00 AM EST 60 mg Oral active Take 1 capsule (60 mg total) by mouth daily [facility] Acetaminophen 325 MG / Hydrocodone Bitartrate 5 MG Oral Tabl et [Oldhams] Oldhams 07/18/2020 12:00:00 AM EST ORAL active MEDENT ([facility]) apixaban 2.5 MG Oral Tablet [Eliquis] Eliquis 07/06/2020 12:00:00 AM EST active MEDENT ([facility]) anastrozole 1 MG Oral Tablet Anastrozole 07/02/2020 12:00:00 AM EST ORAL active MEDENT ([facility]) chlorhexidine gluconate 40 MG/ML Medicated Liquid Soap [Hibi clens] Hibiclens 06/22/2020 12:00:00 AM EDT active MEDENT ([facility]) Mupirocin 0.02 MG/MG Topical Ointment [Bactroban] Bactroban 06/22/2020 12:00:00 AM EDT completed MEDENT ([facility]) Mupirocin 20 MG/ML Topical Cream [Bactroban] Bactroban 06/07/2020 12:00:00 AM EDT completed MEDENT ([facility]) Diazepam 2 MG Oral Tablet [Valium] Valium 05/23/2020 12:00:00 AM EDT ORAL completed MEDENT ([facility]) Diclofenac Sodium 0.01 MG/MG Topical Gel Diclofenac Sodium 05/15/2020 12:00:00 AM EDT active MEDENT ([facility]) Lactulose 667 MG/ML Oral Solution [Constulose] Constulose 04/22/2020 12:00:00 AM EDT active MEDENT ([facility]) 24 HR Propranolol Hydrochloride 60 MG Ex tended Release Oral Capsule propranolol (INDERAL LA) 60 MG 24 hr capsule propranolol (INDERAL LA) 60 MG 24 hr capsule 02/27/2020 12:00:00 AM EDT 60 mg Oral aborted Take 1 capsule (60 mg total) by mouth daily [facility] Amoxicillin 875 MG Oral Tablet Amoxicillin 12/09/2019 12:00:00 AM EDT ORAL completed MEDENT ([facility]) Clindamycin 10 MG/ML Topical Lotion Clindamycin Phosphate Cl indamycin Phosphate 09/15/2019 10:35:39 AM EST 1 APPLIC active [facility] Ketoconazole 20 MG/ML Medicated Shampoo Ketoconazole 09/15/19 20 10:35:31 AM EST 1 APPLIC active [facility] 24 HR tolterodine tartrate 4 MG Extended Release Oral Capsule Tolterodine Tolterodine 09/15/2019 10:07:19 AM EST 4 MG active [facility] montelukast 10 MG Oral Tablet Montelukast Montelukast 09/15/2019 10:06:11 AM EST 10 MG active [facility] 24 HR Propranolol Hydrochloride 60 MG Extended Release Oral Capsule Propranolol 09/15/2019 10:05:39 AM EST 60 MG active [facility] pantoprazole 40 MG Delayed Release Oral Tablet Pantoprazole Pantoprazole 09/15/2019 10:05:20 AM EST 40 MG active [facility] Glipizide 5 MG Oral Tablet Glipizide 09/15/2019 10:04:23 AM EST 5 MG active [facility] Furosemide 20 MG Oral Tablet Furosemide 09/15/2019 10:03:54 AM EST 20 MG active [facility] Diclofenac Sodium 0.01 MG/MG Topical Gel Diclofenac Sodium 09/15/2019 10:02:41 AM EST 2 GM active [facility] Calcium Carbonate 1250 MG Oral Tablet Calcium Carbonate 10:01:57 AM EST 500 MG active [facility] 24 HR Bupropion Hydrochloride 300 MG Extended Release Oral Tablet Bupropion Hcl Bupropion Hcl 09/15/2019 10:00:33 AM EST 300 MG active [facility] duloxetine 30 MG Delayed Release Oral Capsule Duloxetine HCL 08/26/2019 12:00:00 AM EST active [facility] ([facility]) gabapentin 400 MG Oral Capsule gabapentin (NEURONTIN) 400 MG capsule gabapentin (NEURONTIN) 400 MG capsule 08/02/2019 12:00:00 AM EST 400 mg Oral aborted Take 400 mg by mouth 3 (three) times a d ay [facility] Ranitidine 150 MG Oral Tablet ranitidine (ZANTAC) 150 MG tablet ranitidine (ZANTAC) 150 MG tablet 07/24/2019 12:00:00 AM EST aborted [facility] Clindamycin 10 MG/ML Topical Lotion Clindamycin Phosphate Cl indamycin Phosphate 06/15/2019 07:19:29 AM EDT 1 APPLIC completed [facility] anastrozole 1 MG Oral Tablet Anastrozole 05/12/2019 12:00:00 AM EDT ORAL completed [facility] ([facility]) Ketoconazole 20 MG/ML Medicated Shampoo Ketoconazole 03/11/20 11:07:47 AM EDT 1 APPLIC completed [facility] Furosemide 20 MG Oral Tablet furosemide (LASIX) 20 MG tablet furosemide (LASIX) 20 MG tablet 08/05/2018 12:00:00 AM EST 20 mg Oral abort ed Take 20 mg by mouth daily [facility] Acetaminophen 325 MG Oral Tablet acetaminophen (TYLENO L) 325 MG tablet acetaminophen (TYLENOL) 325 MG tablet 2018 12:00:00 AM EDT 65 0 mg Oral aborted Take 2 tablets (650 mg total) by mouth every 6 (six) hours as needed for pain [facility] 24 HR tolterodine tartrate 4 MG Extended Release Oral Capsule tolterodine (DETROL LA) 4 MG 24 hr capsule tolterodine (DETROL LA) 4 MG 24 hr capsule 4 mg Oral aborted Take 4 mg by mouth daily [facility] Aspirin 81 MG Oral Tablet aspirin 81 MG tablet aspirin 81 MG tablet 81 mg Oral aborted Take 81 mg by mouth [facility] Insurance Providers Payer name Policy type / Coverage type Policy ID Covered republican ID Covered republican's relationship to [place] ri[place] Policy [place] Plan Information [facility] COMMUNITY PLAN MCDO [id number] SP [id number] [facility](MCAID) O [id number] S [id number] [facility] COMMUNITY PLAN [facility] [place] [place] [id number] SP [id number] [facility] [place] [id number] SP [id number] [facility] [id number] S [id number] [facility] COMMUNITY PLAN [id number] 0 [id number] [facility] COMMUNITY PLAN [id number] 0 [id number] MED[place]ID [place] [id number] [facility] [id number] [facility] MEDICAID [id number] [facility] MEDICAID [id number] [place] [id number] [facility] Community Plan Primary [id number] Medicaid Secondary [id number] [facility] Essential Plan P [id number] S [id number] Pending sale to [facility] COMMUNITY PLAN [id number] 0 [id number] [facility] U [id number] Self [id number] MEDICAID M [id number] Self [id number] Managed Care - [facility] Community Plan P [id number] S [id number] Medicaid S [id number] SELF PAY ONLY [id number] SP [id number] [facility](MCAID) O [id number] S [id number] [facility] COMMUNITY PLAN MCDO [id number] SP [id number] [facility] COMMUNITY PLAN [facility] [place] [id number] SP [id number] [facility] COMMUNITY PLAN [id number] [id number] SP [id number] Managed Care - [facility] Community Plan P [id number] S [id number] [facility] COMMUNITY PLAN [id number] [id number] [facility] Community Plan Commercial [id number] Self [id number] [facility] Community Plan Commercial [id number] Self [id number] [employer] U/W Commercial [id number] Self [id number] [facility] Community Plan Commercial [id number] Self [id number] Medicaid S UNAVAILABLE S UNAVAILA BLE Managed Care - Community [facility] P UNAVAILABLE S UNAVAILABLE [facility] Community Plan Commercial [id number] Self [id number] [facility] Community Plan Commercial [id number] Self [id number] [employer] U/W Commercial [id number] Self [id number] BCBS Ppo Commercial [id number] Self [id number] [facility] Community Plan Commercial [id number] Self [id number] [place] Medigap Part B [id number] Self [id number] [facility] Community Plan Commercial [id number] Self [id number] [employer] Medigap Part B [id number] Self [id number] [employer] Medigap Part B [id number] Self [id number] [facility] Health Maintenance Organization (HMO) [id number] Self [id number] [facility] Community Plan Commercial [id number] Self [id number] [facility] Community Plan Commercial [id number] Self [id number] [employer] U/W Commercial [id number] Self [id number] [facility] Community Plan Commercial [id number] Self [id number] [facility] Community Plan Commercial [id number] Self [id number] [place] PPO 302/307 [id number] SP [id number] [facility] Community Plan Commercial [id number] Self [id number] [facility] Community Plan Commercial [id number] Self [id number] [employer] U/W Commercial [id number] Self [id number] [facility] Community Plan Commercial [id number] Self [id number] [employer] U/W Commercial [id number] Self [id number] [place] Medigap Part B [id number] Self [id number] [facility] [place] [facility] [id number] Self [id number] [place] Commercial [id number] Self [id number] MVP (pr) Commercial [id number] Self [id number] [place] [facility] [id number] Self [id number] [place] [facility] [id number] Self [id number] [facility] Community Plan Commercial [id number] Self [id number] [facility] COMMUNITY PLAN [id number] 0 [id number] MEDICAID -O/P [id number] [employer] U/W Commercial [id number] Self [id number] [employer] U/W Commercial [id number] Self [id number] BS Exchange (Epo,Hmo,Ppo) Commercial [id number] Self [id number] EXCELLUS H [id number] Self [id number] BCBS Ppo Commercial [id number] Self [id number] [facility] [employer] (Epo,Hmo,Ppo) Commercial [id number] Self [id number] [employer] BCBS B [id number] S [id number] EX[employer] BCBS [id number] [place] YNI [id number] [place] [facility] [id number] Self [id number] [place] [facility] Part B [id number] Self [id number] [place] Commercial [id number] Self [id number] BLUE CROSS BLUE SHIELD -O/P [id number] 18 [id number] EX[employer]LL[employer] BCBS PI PI [employer] U/W Commercial [id number] Self [id number] [employer] U/W Commercial [id number] Self [id number] [place] Medigap Part B [id number] Self [id number] [place] Medigap Part B [id number] Self [id number] [place] Commercial [id number] Self [id number] [place] Medigap Part B [id number] Self [id number] [place] Medigap Part B [id number] Self [id number] [place] Commercial [id number] Self [id number] [place] Medigap Part B [id number] Self [id number] [place] Medigap Part B [id number] Self [id number] [place] Commercial [id number] Self [id number] BS Exchange (Epo,Hmo,Ppo) Commercial [id number] Self [id number] BCBS Ppo Commercial [id number] Self [id number] BS Exchange (Epo,Hmo,Ppo) Commercial [id number] Self [id number] [place] Medigap Part B [id number] Self [id number] [place] Medigap Part B [id number] Self [id number] [place] Commercial [id number] Self [id number] [place] Medigap Part B [id number] Self [id number] [place] Medigap Part B [id number] Self [id number] [place] Commercial [id number] Self [id number] BS Exchange (Epo,Hmo,Ppo) Commercial [id number] Self [id number] [place] Medigap Part B [id number] Self [id number] [place] Medigap Part B [id number] Self [id number] [place] Commercial [id number] Self [id number] [place] Medigap Part B [id number] Self [id number] [place] Medigap Part B [id number] Self [id number] [place] Commercial [id number] Self [id number] [place] Medigap Part B [id number] Self [id number] [place] Medigap Part B [id number] Self [id number] [place] Commercial [id number] Self [id number] BS Exchange (Epo,Hmo,Ppo) Commercial [id number] Self [id number] BCBS [place] PPO 302/307 [id number] SP [id number] [facility] HMO/PPO/POS [id number] [place] Medigap Part B [id number] Self [id number] [place] Medigap Part B [id number] Self [id number] [place] Commercial [id number] Self [id number] BCBS Ppo Commercial [id number] Self [id number] MVP (pr) Commercial Self BS [place] Medigap Part B Self BS [place] Medigap Part B Self BS [place] Medigap Part B Self BS [place] Commercial Epo Self Epo BS Exchange (Epo,Hmo,Ppo) Commercial Self BS [place] Medigap Part B Self BS [place] Medigap Part B Self BCBS [place] PPO 302/307 [id number] SP [id number] [facility]/P [id number] 18 [id number] EXCELLUS BCBS B P [id number] BCBS [place] PPO 302/307 [id number] SP [id number] Self Pay S [id number] S [id number] Sliding Fee Scale P [id number] S [id number] Self Pay P none S none BCBS [place] PPO 302/307 [id number] SP [id number] PROGRESSIVE CO NO FAULT [id number] SP [id number] SELF PAY UNAVAILABLE SP UNAVAILA BLE BCBS [place] PPO 302/307 [id number] SP [id number] Problems, Conditions, and Diagnoses Code Display Name Description Problem Type Effective Dates Data Source(s) Z86.018 [id number] Hx of dysplastic nevus Problem 10/10/2020 12:00:00 AM [place] [address] ([facility]) N20.0 Kidney stone Kidney stone Problem 09/28/2020 12:00:00 A M [place] [address] ([facility]) N20.0 [id number] Left renal stone Problem 09/19/2020 12:00:00 AM [place] [address] ([facility]) N13.2 [id number] Hydronephrosis with urinary obst ruction due to renal calculus Problem 09/06/2020 12:00:00 AM [place] [address] ([facility]) F41.9 Anxiety disorder, unspecified ANXIETY DISORDER, UNSPEC IFIED Diagnosis 08/27/2020 10:00:00 AM [facility] F33.2 Major depressive disorder, 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 MAJOR DEPRESSV DISORDER, RECURRENT SEVERE W/O PSYCH FEATURES Diagnosis 08/27/2020 10:00:00 AM [facility] R07.9 Chest pain, unspecified Chest pain, unspecified Diagno sis 08/03/2020 08:32:29 AM [facility] E78.5 Hyperlipidemia, unspecified Hyperlipidemia, unspecifie d Diagnosis 08/03/2020 08:32:29 AM [facility] I10 Essential (primary) hypertension Essential (primary) h ypertension Diagnosis 08/03/2020 08:32:29 AM [facility] Z98.84 Bariatric surgery status Bariatric surgery status Diag nosis 08/03/2020 08:32:29 AM EST [facility] Z79.4 long-term (current) use of insulin 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 (cu rrent) use of insulin Diagnosis 08/03/2020 08:32:29 AM EST [facility] E11.9 Type 2 diabetes mellitus without complic ations Type 2 diabetes mellitus without complic Diagnosis 08/03/2020 08:32:29 AM EST [facility] E66.01 Morbid (severe) obesity due to excess ca lories Morbid (severe) obesity due to excess ca Diagnosis 08/03/2020 08:32:29 AM EST [facility] K74.69 Other cirrhosis of liver Other cirrhosis of liver Diag nosis 08/03/2020 08:32:29 AM [facility] Z98.890 Other specified postprocedural states Ot her specified postprocedural states Diagnosis 03/09/2020 09:58:56 AM [facility] Z12.31 Encounter for screening mammogram for ma lignant neoplasm of breast Encounter for screening mammogram for malignant neoplasm of breast Diagnosis 03/09/2020 09:58:[address] [facility] Surgeries/Procedures Procedure Description Date Indications Data Source(s) Electrocardiogram Complete 10/01/2020 12:00:00 AM EST [facility] ([facility]) RADIOLOGIC EXAMINATION KNEE 3 VIEWS 08/23/2020 12:00:0 0 AM EST [facility] ([facility]) ECG ROUTINE ECG W/LEAST 12 LDS W/I&R POCT AMB EKG Routine 08/03/2020 9:25 AM EST Hypertension, essential 08/03/2020 02:25:00 PM EST Hypertension, essential [facility] Hypertension, essential ARTHRP KNE CONDYLE&PLATU MEDIAL&LAT CMPRTS 07/05/2020 12:00:00 AM EST [facility] ([facility]) ARTHRP KNE CONDYLE&PLATU MEDIAL&LAT CMPRTS 07/05/2020 12:00:00 AM EST [facility] ([facility]) Injec Anesthetic Agent/Steroid Trans Epidural Lumb/Sacral Si ngle 04/26/2020 12:00:00 AM EDT [facility] ([facility]) Epidurography Radiological Supervision & Interpretation 04/26/2020 12:00:00 AM EDT [facility] ([facility]) Moderate Sedation Services; Same Phys Intl 15 Mins; PT >= 5 Years 04/26/2020 12:00:00 AM EDT [facility] ([facility]) RADIOLOGIC EXAM KNEE COMPLETE 4/MORE VIEWS 04/11/2020 12:00:00 AM EDT [facility] ([facility] ) RADIOLOGIC EXAM KNEE COMPLETE 4/MORE VIEWS 04/11/2020 12:00:00 AM EDT [facility] ([facility]) RADIOLOGIC EXAM KNEE COMPLETE 4/MORE VIEWS 04/11/2020 12:00:00 AM EDT [facility] ([facility]) RADIOLOGIC EXAM KNEE COMPLETE 4/MORE VIEWS 04/11/2020 12:00:00 AM EDT [facility] ([facility] ) Injec Anesthetic Agent/Steroid Trans Epidural Lumb/Sacral Si ngle 03/19/2020 12:00:00 AM EDT [facility] ([facility] Epidurography Radiological Supervision & Interpretation 03/19/2020 12:00:00 AM EDT [facility] ([facility]) Moderate Sedation Services; Same Phys Intl 15 Mins; PT >= 5 Years 03/19/2020 12:00:00 AM EDT [facility] ([facility] ) ARTHROCENTESIS ASPIR&/INJECTION MAJOR JT/BURSA 020 12:00:00 AM EDT [facility] ([facility] ) Injec(S),Diag Or Therapeutic Agent, Paravertebral Lumber Or Sacr 09/12/2019 12:00:00 AM EST [facility] ([facility]) Moderate Sedation Services; Same Phys Intl 15 Mins; PT >= 5 Years 09/12/2019 12:00:00 AM EST [facility] ([facility]) Moderate Sedation Services; Same Phys Each Additional 15 Min s 09/12/2019 12:00:00 AM EST [facility] ([facility]) RESPIRATORY FLOW VOLUME LOOP 09/05/2019 12:00:00 AM ES T [facility] ([facility] Results ID Date Data Source [id number] 10/13/2020 10:00:00 AM EST [facility] Name Value Range Interpretation Code Description Data Marylou rce(s) Supporting Document(s) SARS coronavirus 2 RNA Not Detected [facility] This lab was ordered by [facility] and reported by [facility]. ID Date Data Source [id number] 10/01/2020 01:52:00 PM EST [facility] ([facility]) Name Value Range Interpretation Code Description Data Marylou rce(s) Supporting Document(s) EKG Laboratory test result [facility] ID Date Data Source [id number] 09/07/2020 01:20:00 PM EST [facility] ([facility]) Name Value Range Interpretation Code Description Data Marylou rce(s) Supporting Document(s) Laboratory test finding (navigational concept) Laboratory test r esult Normal (applies to non-numeric results) [facility] ([facility]) A false negative result may occur if a s pecimen is improperly collected, transported or handled. False [...] pathogens. DISCLAIMER: Testing was performed using the [employer] SARS-CoV-2 test. This test was developed and its performance characteristics determined by [employer]. This test has not been FDA cleared [...] the authorization is terminated or revoked sooner. ID Date Data Source [id number] 09/07/2020 01:20:00 PM EST [facility] Name Value Range Interpretation Code Description Data Marylou rce(s) Supporting Document(s) SARS coronavirus 2 RNA [Presence] in Res piratory specimen by [facility] with probe detection NEGATIVE [facility] This lab was ordered by [facility] a nd reported by [facility]. ID Date Data Source [id number] 08/30/2020 12:00:00 AM EST [facility] Name Value Range Interpretation Code Description Data Marylou rce(s) Supporting Document(s) SARS-CoV-2 (COVID-19) RNA [Presence] in Respiratory specimen by [facility] with probe detection Not Detected [facility] This lab was ordered by [facility] and reported by [employer]. ID Date Data Source [id number] 07/18/2020 03:58:00 PM EST [facility] ([facility]) Name Value Range Interpretation Code Description Data Marylou rce(s) Supporting Document(s) White Blood Count 6.1 10 4.0-10.0 Normal (applies to non-numeri c results) [facility] ([facility]) Red Blood Count 3.35 10 4.00-5.40 Below low normal [facility] ([facility]) Hemoglobin 11.0 g/dL 12.0-15.5 Below low normal [facility] ( [facility] Mean Corpuscular Volume 98.8 fl 80.0-96.0 Above high normal [facility] ([facility]) Hematocrit 33.1 % 36.0-47.0 Below low normal [facility] Mean Corpuscular Hemoglobin 32.8 pg 27.0-33.0 Norm al (applies to non-numeric results) [facility] ([facility]) Red Cell Distribution Width 14.6 % 11.5-14.5 Above high normal [facility] ([facility]) Platelet Count, Automated 247 10 150-450 Normal (applies to non-numeric results) [facility] ([facility]) Mean Corpuscular HGB Conc 33.2 g/dL 32.0-36.5 Normal (applies to non-numeric results) [facility] ([facility]) Neutrophils % 58.3 % 36.0-66.0 Normal (applies to non-numeric re sults) [facility] ([facility] Lymph % 21.0 % 24.0-44.0 Below low normal [facility] ( [facility] [place] % 8.9 % 0.0-5.0 Above high normal [facility] ([facility]) Eos % 10.3 % 0.0-3.0 Above high normal [facility] ([facility]) Baso % 1.0 % 0.0-1.0 Normal (applies to non-numeric resul ts) [facility] ([facility]) Immature Granulocyte % 0.5 % 0-3.0 Normal (applies to non-n umeric results) [facility] ([facility] Nucleated Red Blood Cell % 0.0 % 0-0 Normal (applies to n on-numeric results) [facility] ([facility] Neutrophils # 3.6 10 1.5-8.5 Normal (applies to non-numeric re sults) [facility] ([facility] Lymph # 1.3 10 1.5-5.0 Below low normal [facility] ( [facility] Eos # 0.6 10 0.0-0.5 Above high normal [facility] ([facility] [place] # 0.5 10 0.0-0.8 Normal (applies to non-numeric resul ts) [facility] ([facility] Baso # 0.1 10 0.0-0.2 Normal (applies to non-numeric resul ts) [facility] ([facility]) ID Date Data Source [id number] 07/18/2020 03:58:00 PM EST [facility] ([facility] Name Value Range Interpretation Code Description Data Marylou rce(s) Supporting Document(s) Blood Urea Nitrogen 15 mg/dL 7-18 Normal (applies to non-nume jr results) [facility] ([facility]) Creatinine For GFR 0.75 mg/dL 0.55-1.30 Normal (applies to non -numeric results) [facility] ([facility]) Glucose, Fasting 170 mg/dL 70-100 Above high normal [facility] ([facility] Sodium Level 142 meq/L 136-145 Normal (applies to non-numeric res ults) [facility] ([facility]) Glomerular Filtration Rate Laboratory test result Normal (applies to non- numeric results) [facility] ([facility]) <content>Units are mL/min/1.73 m2</content>
<content></content>
<content>Chronic Kidney Disease Staging per NKF:</content>
<content></content>
<content>Stage I & II GFR >=60 Normal to Mildly Decreased</content>
<content>Stage III GFR 30- 59 Moderately Decreased</content>
<content>Stage IV GFR 15-29 Severely Decreased</content>
<content>Stage V GFR <15 Very Little GFR Left</content>
<content>ESRD GFR <15 on [employer] TEAM[employer]ATE</content>
<content></content> Potassium Serum 4.4 meq/L 3.5-5.1 Normal (applies to non-numeric results) [facility] ([facility] Chloride Level 108 meq/L 98-107 Above high normal [facility] ([facility] Carbon Dioxide Level 29 meq/L 21-32 Normal (applies to non-num cruz results) [facility] ([facility] Anion Gap 5 meq/L 8-16 Below low normal [facility] ( [facility] Calcium Level 8.9 mg/dL 8.8-10.2 Normal (applies to non-numeric re sults) [facility] ([facility]) Ast/Sgot 26 U/L 7-37 Normal (applies to non-numeric resul ts) [facility] ([facility]) Alkaline Phosphatase 113 U/L 45-117 Normal (applies to non-num cruz results) [facility] ([facility] Bilirubin,Total 1.0 mg/dL 0.2-1.0 Normal (applies to non-numeric results) [facility] ([facility]) Alt/SGPT 20 U/L 12-78 Normal (applies to non-numeric resul ts) [facility] ([facility]) Albumin/Globulin Ratio 0.8 1.2-2.2 Below low normal [facility] Total Protein 7.2 GM/DL 6.4-8.2 Normal (applies to non-numeric re sults) [facility] ([facility]) Albumin 3.2 GM/DL 3.2-5.2 Normal (applies to non-numeric resul ts) [facility] ([facility]) ID Date Data Source [id number] 07/18/2020 03:58:00 PM EST [facility] ([facility]) Name Value Range Interpretation Code Description Data Marylou rce(s) Supporting Document(s) Ammonia [Mass/volume] in Blood 55 uMOL/L Above high zari l [facility] ([facility]) ID Date Data Source [id number] 07/18/2020 03:58:00 PM EST [facility] ([facility]) Name Value Range Interpretation Code Description Data Marylou rce(s) Supporting Document(s) Estimated Average Glucose 160 mg/dL 60-110 Above high normal [facility] ([facility]) Hemoglobin A1c 7.2 % Normal (applies to non-numeric r esults) [facility] HOSPITAL ([facility]) <content>REFERENCE RANGES:</content><br/ ><content></content>
<content><=5.6% NORMAL</content>
<content>5.7-6.4% SUGGESTS IMPAIRED GLUCOSE METABOLISM/PREDIABETIC</content>
<content>>= 6.5% ABNORMAL</content>
<content></content> ID Date Data Source [id number] 07/18/2020 03:58:00 PM EST [facility] ([facility]) Name Value Range Interpretation Code Description Data Marylou rce(s) Supporting Document(s) Triglycerides Level 90 mg/dL Normal (applies to non-nume jr results) [facility] ([facility]) Cholesterol Level 116 mg/dL Normal (applies to non-numeri c results) [facility] ([facility] Non-HDL-C 64 mg/dL Normal (applies to non-numeric resul ts) [facility] ([facility] LDL Cholesterol 46 mg/dL Normal (applies to non-numeric results) [facility] ([facility] HDL Cholesterol 52 mg/dL Normal (applies to non-numeric results) [facility] ([facility] Cholesterol Risk Ratio 2.230 Normal (applies to non-n umeric results) [facility] ([facility]) ID Date Data Source [id number] 06/30/2020 12:00:00 PM EST [facility] Name Value Range Interpretation Code Description Data Marylou rce(s) Supporting Document(s) SARS coronavirus 2 RNA [facility] This lab was ordered by [facility] and reported by [facility]. ID Date Data Source [id number] 06/24/2020 10:57:00 AM EST [facility] ([facility] Name Value Range Interpretation Code Description Data Marylou rce(s) Supporting Document(s) Erythrocyte sedimentation rate by Westergren method 32 mm/hr 0-30 Above high normal [facility] ([facility]) ID Date Data Source [id number] 06/24/2020 10:57:00 AM EST [facility] ([facility] Name Value Range Interpretation Code Description Data Marylou rce(s) Supporting Document(s) Red Blood Count 4.09 10 4.00-5.40 Normal (applies to non-numeric results) [facility] ([facility] White Blood Count 4.6 10 4.0-10.0 Normal (applies to non-numeri c results) [facility] ([facility] Hematocrit 39.7 % 36.0-47.0 Normal (applies to non-numeric resul ts) [facility] ([facility]) Hemoglobin 13.8 g/dL 12.0-15.5 Normal (applies to non-numeric resul ts) [facility] ([facility] Mean Corpuscular Volume 97.1 fl 80.0-96.0 Above high normal [facility] ([facility]) Mean Corpuscular HGB Conc 34.8 g/dL 32.0-36.5 Normal (applies to non-numeric results) [facility] ([facility] Mean Corpuscular Hemoglobin 33.7 pg 27.0-33.0 Above high normal [facility] ([facility]) Platelet Count, Automated 164 10 150-450 Normal (applies to non-numeric results) [facility] ([facility]) Nucleated Red Blood Cell % 0.0 % 0-0 Normal (applies to n on-numeric results) [facility] ([facility] Red Cell Distribution Width 12.4 % 11.5-14.5 Norm al (applies to non-numeric results) [facility] ID Date Data Source [id number] 06/24/2020 10:57:00 AM EST [facility] Name Value Range Interpretation Code Description Data Marylou rce(s) Supporting Document(s) Glucose, Fasting 157 mg/dL 70-100 Above high normal [facility] Creatinine For GFR 0.74 mg/dL 0.55-1.30 Normal (applies to non -numeric results) [facility] ([facility]) Blood Urea Nitrogen 11 mg/dL 7-18 Normal (applies to non-nume jr results) [facility] ([facility]) Glomerular Filtration Rate Laboratory test result Normal (applies to non- numeric results) [facility] ([facility]) <content>Units are mL/min/1.73 m2</content>
<content></content>
<content>Chronic Kidney Disease Staging per NKF:</content>
<content></content>
<content>Stage I & II GFR >=60 Normal to Mildly Decreased</content>
<content>Stage III GFR 30- 59 Moderately Decreased</content>
<content>Stage IV GFR 15-29 Severely Decreased</content>
<content>Stage V GFR <15 Very Little GFR Left</content>
<content>ESRD GFR <15 on [employer] TE[employer]ATE</content>
<content></content> Sodium Level 144 meq/L 136-145 Normal (applies to non-numeric res ults) [facility] ([facility] Chloride Level 112 meq/L 98-107 Above high normal [facility] ([facility]) Potassium Serum 4.6 meq/L 3.5-5.1 Normal (applies to non-numeric results) [facility] ([facility]) Carbon Dioxide Level 28 meq/L 21-32 Normal (applies to non-num cruz results) [facility] ([facility]) Anion Gap 4 meq/L 8-16 Below low normal [facility] ( [facility] Alt/SGPT 38 U/L 12-78 Normal (applies to non-numeric resul ts) [facility] ([facility]) Calcium Level 9.0 mg/dL 8.8-10.2 Normal (applies to non-numeric re sults) [facility] ([facility] Ast/Sgot 36 U/L 7-37 Normal (applies to non-numeric resul ts) [facility] ([facility] Bilirubin,Total 0.8 mg/dL 0.2-1.0 Normal (applies to non-numeric results) [facility] ([facility] Alkaline Phosphatase 115 U/L 45-117 Normal (applies to non-num cruz results) [facility] ([facility]) Albumin 3.5 GM/DL 3.2-5.2 Normal (applies to non-numeric resul ts) [facility] ([facility] Total Protein 7.4 GM/DL 6.4-8.2 Normal (applies to non-numeric re sults) [facility] ([facility]) Albumin/Globulin Ratio 0.9 1.2-2.2 Below low normal [facility] ID Date Data Source [id number] 06/24/2020 10:57:00 AM EST [facility] ([facility]) Name Value Range Interpretation Code Description Data Marylou rce(s) Supporting Document(s) Erythrocyte sedimentation rate by Westergren method 32 mm/hr 0-30 [facility] ([facility]) ID Date Data Source [id number] 06/24/2020 10:57:00 AM EST [facility] ([facility]) Name Value Range Interpretation Code Description Data Marylou rce(s) Supporting Document(s) White Blood Count 4.6 10 4.0-10.0 [facility] ([facility]) Hematocrit 39.7 % 36.0-47.0 [facility] ([facility]) Red Blood Count 4.09 10 4.00-5.40 [facility] ([facility]) Hemoglobin 13.8 g/dL 12.0-15.5 [facility] ([facility]) Mean Corpuscular Volume 97.1 fl 80.0-96.0 M [facility] ([facility]) Mean Corpuscular Hemoglobin 33.7 pg 27.0-33.0 [facility] ([facility]) Mean Corpuscular HGB Conc 34.8 g/dL 32.0-36.5 [facility] ([facility]) Platelet Count, Automated 164 10 150-450 [facility] ([facility]) Nucleated Red Blood Cell % 0.0 % 0-0 [facility] ([facility]) Red Cell Distribution Width 12.4 % 11.5-14.5 [facility] ([facility]) ID Date Data Source [id number] 06/24/2020 10:57:00 AM EST [facility] ([facility]) Name Value Range Interpretation Code Description Data Marylou rce(s) Supporting Document(s) Glucose, Fasting 157 mg/dL 70-100 [facility] ([facility]) Blood Urea Nitrogen 11 mg/dL 7-18 [facility] ([facility]) Creatinine For GFR 0.74 mg/dL 0.55-1.30 [facility] ([facility]) Glomerular Filtration Rate Laboratory test result [facility] ([facility]) <content>Units are mL/min/1.73 m2</content>
<content></content>
<content>Chronic Kidney Disease Staging per NKF:</content>
<content></content>
<content>Stage I & II GFR >=60 Normal to Mildly Decreased</content>
<content>Stage III GFR 30- 59 Moderately Decreased</content>
<content>Stage IV GFR 15-29 Severely Decreased</content>
<content>Stage V GFR <15 Very Little GFR Left</content>
<content>ESRD GFR <15 on [employer] TE[employer]ATE</content>
<content></content> Sodium Level 144 meq/L 136-145 [facility] ([facility]) Potassium Serum 4.6 meq/L 3.5-5.1 [facility] ([facility]) Chloride Level 112 meq/L 98-107 [facility] ([facility]) Anion Gap 4 meq/L 8-16 [facility] ([facility] Calcium Level 9.0 mg/dL 8.8-10.2 [facility] ([facility]) Carbon Dioxide Level 28 meq/L 21-32 [facility] Alt/SGPT 38 U/L 12-78 [facility] ([facility] Alkaline Phosphatase 115 U/L 45-117 [facility] ( [facility]) Ast/Sgot 36 U/L 7-37 [facility] ([facility]) Bilirubin,Total 0.8 mg/dL 0.2-1.0 [facility] ([facility]) Total Protein 7.4 GM/DL 6.4-8.2 [facility] ([facility]) Albumin 3.5 GM/DL 3.2-5.2 [facility] ([facility]) Albumin/Globulin Ratio 0.9 1.2-2.2 [facility] ([facility]) ID Date Data Source [id number] 06/24/2020 10:56:00 AM EST [facility] ([facility] Name Value Range Interpretation Code Description Data Marylou rce(s) Supporting Document(s) Inr 1.12 Normal (applies to non-numeric resul ts) [facility] THERAPUTIC HUMAN INR VALUES INDICATIONS NORMAL RANGES PROPHYLAXIS/TREATMENT OF: VENOUS THROMBOSIS 2.0-3.0 PULMONARY EMBOLISM 2.0-3.0 PREVENTION OF SYSTEMIC EMBOLISM FROM: TISSUE HEART VALVES 2.0-3.0 ACUTE MYOCARDIAL INFARCTION 2.0-3.0 VALVULAR HEART DISEASE 2.0-3.0 ATRIAL FIBRILLATION 2.0-3.0 MECHANICAL VALVES(HIGH RISK) 2.5-3.5 RECURRENT MYOCARDIAL INFARCTION 2.5-3.5 Prothrombin Time 14.7 s 12.5-14.3 Above high normal [facility]) ID Date Data Source [id number] 06/24/2020 10:56:00 AM EST [facility] ([facility]) Name Value Range Interpretation Code Description Data Marylou rce(s) Supporting Document(s) Prothrombin Time 14.7 s 12.5-14.3 [facility] ([facility]) Inr 1.12 [facility] ([facility]) THERAPUTIC HUMAN INR VALUES INDICATIONS NORMAL RANGES PROPHYLAXIS/TREATMENT OF: VENOUS THROMBOSIS 2.0-3.0 PULMONARY EMBOLISM 2.0-3.0 PREVENTION OF SYSTEMIC EMBOLISM FROM: TISSUE HEART VALVES 2.0-3.0 ACUTE MYOCARDIAL INFARCTION 2.0-3.0 VALVULAR HEART DISEASE 2.0-3.0 ATRIAL FIBRILLATION 2.0-3.0 MECHANICAL VALVES(HIGH RISK) 2.5-3.5 RECURRENT MYOCARDIAL INFARCTION 2.5-3.5 ID Date Data Source [id number] 06/14/2020 10:18:00 AM EDT [facility] ([facility]) Name Value Range Interpretation Code Description Data Marylou rce(s) Supporting Document(s) Laboratory test finding (navigational concept) Laboratory test result [facility] ([facility]) ID Date Data Source [id number] 06/13/2020 01:00:00 PM EDT [facility] ([facility]) Name Value Range Interpretation Code Description Data Marylou rce(s) Supporting Document(s) PDFReport Laboratory test result [facility] ([facility]) FVC-Pred 3.79 L [facility] ([facility]) FVC-Pre 3.42 L [facility] ([facility]) FVC-%Pred-Pre 90 L [facility] ([facility]) FVC-LLN 3.00 L [facility] ([facility]) Fev1-Pred 2.92 L [facility] ([facility]) Fev1-Pre 2.55 L [facility] ([facility]) Fev6-Pred 3.65 L [facility] ([facility]) Fev1-LLN 2.24 L [facility] ([facility]) Fev1-%Pred-Pre 87 L [facility] ([facility]) Fev6-%Pred-Pre 93 L [facility] ([facility]) Fev6-Pre 3.42 L [facility] ([facility]) Fev6-LLN 2.87 L [facility] ([facility]) Twn6fir-Zimf 77 % [facility] ([facility]) Rjq9keq-Feu 75 % [facility] ([facility]) Kga1ypp-%Pred-Pre 96 % [facility] ([facility]) Swz6abm-Duaa 96 % [facility] ([facility]) Flj7qox-ITK 68 % [facility] ([facility]) Lim2ajr-%Pred-Pre 103 % [facility] ([facility]) Qly9fls-Xuj 100 % [facility] ([facility]) FEFMax-Pre 7.14 L/E/sec [facility] ([facility]) FEFMax-Pred 6.84 L/E/sec [facility] ([facility]) FEFMax-LLN 4.87 L/E/sec [facility] ([facility]) FEFMax-%Pred-Pre 104 L/E/sec [facility] ([facility]) Zot3277-%Pred-Pre 76 L/E/sec [facility] ([facility]) Ivj9228-Ozs 1.89 L/E/sec [facility] ([facility]) Dvw6982-Wmlk 2.49 L/E/sec [facility] ([facility]) ExpTime-Pre 7.18 sec [facility] ([facility]) Kxc0179-QCT 1.07 L/E/sec [facility] ([facility]) Rlw5wou2-Klrj 80 % [facility] ([facility]) Ahs0zik1-%Pred-Pre 93 % [facility] ([facility]) Gpt9nes1-Ake 75 % [facility] ([facility]) Qjf8tem4-PZA 71 % [facility] ([facility]) ID Date Data Source [id number] 06/11/2020 07:40:58 AM EDT [facility] Patient History Medical History:Hyperten sionDiabetes - Type IIarthritisAsthmaChronic hepatic encephalopathyBreast cancer survivorGall bladder removedFamily History:Diabetes (Mother)Heart disease (Father )Hypertension (Mother)Social/Personal History: Smoking Status: former smokerCurrent Problems: DENTAL CARIES EXTENDING INTO PULP (ICD-521.03) (ICD10- K02.63)Teeth extraction (ICD-525.10) (DCD88-R63.499)Breast cancer (ICD-174.9) (FGS67-R24.919)Current Medications: * SEE SCANNED LIST * ANASTROZOLE [...] - CDT Code - Description[E] Missing - [place] On #14 Surface O Region XR, #15 Surface O Region XR, #18 Surface O Region XR, #3 Surface O Region XR, #31 Surface O Region XR Chart Alert:HISTORYprophy exam scheduled 05/16/2014panorex taken 08/12/2012 Chart Notes:ricardo (Jun 11 2020 8:25AM): [facility]- no changescc-NoneAdditional PPE requirements due to COVID-19 [...] and then using Biotene mouthwashExcellent patientNV-6 months Torrie Tolentino by ricardo (06/11/2020 8:15 AM): ; bebe (Jun 11 2020 8:38AM): JOCELYN(-). CC: none. Reviewed Xrays. Exam: no caries detected. OCS: WNL, IO/ EO completed, No significant hard findings upon clinical exam.Additional PPE requirements due to COVID-19 in the dental setting, N95, surgical mask, hair covering, gown and shieldPt was cooperative. OHI given Referral: N/A NV:Torrie Tolentino by bebe (06/11/2020 8:38 AM): Tooth Notes and Watches:- Tooth 7 Note: Chip presnet, within normal limitsJennifer Martinez RDH by valeri (02/09/2019 11:12 AM): Assessment & Plan Medications:SEE SCANNED LISTANASTROZOLEAllergies:No Known Allergies (updated 06/11/2020) Name Value Range Interpretation Code Description Data Marylou rce(s) Supporting Document(s) ID Date Data Source [id number] 06/05/2020 12:00:00 AM EDT [facility] Stanley FRAGOSO Patient Name: CARLOS [id number] [facility] Date of : 1955 2 Date of Exam: 06/05/2020THALIA Muñoz [id number]#: Fax: [phone] EXAM: MRI LUMBAR SPINE WITHOUT&WITH [...] rce(s) Supporting Document(s) ID Date Data Source [id number] 06/05/2020 12:00:00 AM EDT [facility] Stanley FRAGOSO Patient Name: CARLOS [id number] [facility] Date of : 1955 2 Date of [facility]: [facility]2020[facility]AL[facility] [id number]#: Fax: [phone] EXAM: MRI CERVICAL SPINE WITHOUT&WITH [...] to participate in the care of your patient.Dictat ed and Authenticated by: Karthikeyan Fishman MD 06/05/2020 11:15 AMEastern Time ([place] & [place])ErlinV/Steff you for referring LEROY CALLAHAN to our office. Electronically Signed - ERLIN 06/05/20 11:24 Name Value Range Interpretation Code Description Data Marylou rce(s) Supporting Document(s) ID Date Data Source [id number] 05/31/2020 03:36:00 PM EDT [facility] Name Value Range Interpretation Code Description Data Marylou rce(s) Supporting Document(s) Glomerular Filtration Rate Laboratory test result Normal (applies to non- numeric results) [facility] ([facility]) <content>Units are mL/min/1.73 m2</content>
<content></content>
<content>Chronic Kidney Disease Staging per NKF:</content>
<content></content>
<content>Stage I & II GFR >=60 Normal to Mildly Decreased</content>
<content>Stage III GFR 30- 59 Moderately Decreased</content>
<content>Stage IV GFR 15-29 Severely Decreased</content>
<content>Stage V GFR <15 Very Little GFR Left</content>
<content>ESRD GFR <15 on [employer] TEAM[employer]ATE</content>
<content></content> Creatinine For GFR 0.69 mg/dL 0.55-1.30 Normal (applies to non -numeric results) [facility]) ID Date Data Source [id number] 05/31/2020 03:36:00 PM EDT [facility] Name Value Range Interpretation Code Description Data Marylou rce(s) Supporting Document(s) Urea nitrogen [Mass/volume] in Serum or Plasma 12 mg/dL 7 -18 Normal (applies to non-numeric results) [facility] ID Date Data Source [id number] 05/31/2020 03:36:00 PM EDT [facility] ([facility]) Name Value Range Interpretation Code Description Data Marylou rce(s) Supporting Document(s) Urea nitrogen [Mass/volume] in Serum or Plasma 12 mg/dL 7-18 [facility]) ID Date Data Source [id number] 05/31/2020 03:36:00 PM EDT [facility] ([facility]) Name Value Range Interpretation Code Description Data Marylou rce(s) Supporting Document(s) Creatinine For GFR 0.69 mg/dL 0.55-1.30 [facility] ([facility]) Glomerular Filtration Rate Laboratory test result [facility] ([facility]) <content>Units are mL/min/1.73 m2</content>
<content></content>
<content>Chronic Kidney Disease Staging per NKF:</content>
<content></content>
<content>Stage I & II GFR >=60 Normal to Mildly Decreased</content>
<content>Stage III GFR 30- 59 Moderately Decreased</content>
<content>Stage IV GFR 15-29 Severely Decreased</content>
<content>Stage V GFR <15 Very Little GFR Left</content>
<content>ESRD GFR <15 on [employer] TEAM[employer]ATE</content>
<content></content> ID Date Data Source [id number] 05/31/2020 03:34:[address] [facility]) Name Value Range Interpretation Code Description Data Marylou rce(s) Supporting Document(s) Mctiu-8-lnyinxfzsyd.tumor marker [Mass/volume] in Serum or Plasm a 3.8 ng/mL Normal (applies to non-numeric results) [facility] ([facility] THE AFP ASSAY IS PERFORMED ON THE [employer] BY CHEMILUMINESCENCE AND SHOULD NOT BE COMPARED INTERCHANGEABLY WITH OTHER METHODS. IT SHOULD NOT BE USED ALONE A SCREENING TEST OR DIAGNOSIS FOR THE PRESENCE OR ABSENCE OF MALIGNANT DISEASE. THESE RESULTS ARE NOT INTERPRETABLE IN FEMALES. PREDICTIONS OF DISEASE RECURRENCE SHOULD NOT BE BASED SOLELY ON VALUES OBTAINED FROM SERIAL PATIENT SERUM VALUES. ID Date Data Source [id number] 05/31/2020 03:34:00 PM EDT [facility] ([facility]) Name Value Range Interpretation Code Description Data Marylou rce(s) Supporting Document(s) Blood Urea Nitrogen 12 mg/dL 7-18 Normal (applies to non-nume jr results) [facility] ([facility]) Glucose, Fasting 116 mg/dL 70-100 Above high normal [facility] Creatinine For GFR 0.64 mg/dL 0.55-1.30 Normal (applies to non -numeric results) [facility] ([facility]) Sodium Level 141 meq/L 136-145 Normal (applies to non-numeric res ults) [facility] ([facility]) Glomerular Filtration Rate Laboratory test result Normal (applies to non- numeric results) [facility] ([facility]) <content>Units are mL/min/1.73 m2</content>
<content></content>
<content>Chronic Kidney Disease Staging per NKF:</content>
<content></content>
<content>Stage I & II GFR >=60 Normal to Mildly Decreased</content>
<content>Stage III GFR 30- 59 Moderately Decreased</content>
<content>Stage IV GFR 15-29 Severely Decreased</content>
<content>Stage V GFR <15 Very Little GFR Left</content>
<content>ESRD GFR <15 on C[employer] TEAMMATE</content>
<content></content> Potassium Serum 4.0 meq/L 3.5-5.1 Normal (applies to non-numeric results) [facility] ([facility] Chloride Level 108 meq/L 98-107 Above high normal [facility] ([facility] Carbon Dioxide Level 29 meq/L 21-32 Normal (applies to non-num cruz results) [facility] ([facility] Anion Gap 4 meq/L 8-16 Below low normal [facility] Ast/Sgot 29 U/L 7-37 Normal (applies to non-numeric resul ts) [facility] ([facility] Calcium Level 9.3 mg/dL 8.8-10.2 Normal (applies to non-numeric re sults) [facility] Alt/SGPT 36 U/L 12-78 Normal (applies to non-numeric resul ts) [facility] Bilirubin,Total 0.7 mg/dL 0.2-1.0 Normal (applies to non-numeric results) [facility] Alkaline Phosphatase 120 U/L 45-117 Above high normal [facility] Albumin 3.3 GM/DL 3.2-5.2 Normal (applies to non-numeric resul ts) [facility] ([facility] Albumin/Globulin Ratio 0.8 1.2-2.2 Below low normal [facility] Total Protein 7.3 GM/DL 6.4-8.2 Normal (applies to non-numeric re sults) [facility] ([facility]) ID Date Data Source [id number] 05/31/2020 03:34:00 PM EDT [facility] ([facility]) Name Value Range Interpretation Code Description Data Marylou rce(s) Supporting Document(s) Prothrombin Time 13.7 s 12.5-14.3 Normal (applies to non-numeric results) [facility] Inr 1.03 Normal (applies to non-numeric resul ts) [facility] THERAPUTIC HUMAN INR VALUES INDICATIONS NORMAL RANGES PROPHYLAXIS/TREATMENT OF: VENOUS THROMBOSIS 2.0-3.0 PULMONARY EMBOLISM 2.0-3.0 PREVENTION OF SYSTEMIC EMBOLISM FROM: TISSUE HEART VALVES 2.0-3.0 ACUTE MYOCARDIAL INFARCTION 2.0-3.0 VALVULAR HEART DISEASE 2.0-3.0 ATRIAL FIBRILLATION 2.0-3.0 MECHANICAL VALVES(HIGH RISK) 2.5-3.5 RECURRENT MYOCARDIAL INFARCTION 2.5-3.5 ID Date Data Source [id number] 05/31/2020 03:34:00 PM EDT [facility] ([facility] Name Value Range Interpretation Code Description Data Marylou rce(s) Supporting Document(s) White Blood Count 6.2 10 4.0-10.0 Normal (applies to non-numeri c results) [facility] Hematocrit 40.2 % 36.0-47.0 Normal (applies to non-numeric resul ts) [facility] Hemoglobin 14.1 g/dL 12.0-15.5 Normal (applies to non-numeric resul ts) [facility] Red Blood Count 4.18 10 4.00-5.40 Normal (applies to non-numeric results) [facility] ([facility] Mean Corpuscular HGB Conc 35.1 g/dL 32.0-36.5 Normal (applies to non-numeric results) [facility] [facility] Mean Corpuscular Hemoglobin 33.7 pg 27.0-33.0 Above high normal [facility] ([facility]) Mean Corpuscular Volume 96.2 fl 80.0-96.0 Above high normal [facility] ([facility]) Platelet Count, Automated 167 10 150-450 Normal (applies to non-numeric results) [facility] ([facility]) Red Cell Distribution Width 12.4 % 11.5-14.5 Norm al (applies to non-numeric results) [facility] Nucleated Red Blood Cell % 0.0 % 0-0 Normal (applies to n on-numeric results) [facility] ID Date Data Source [id number] 05/10/2020 10:30:00 AM EDT [facility] Name Value Range Interpretation Code Description Data Marylou rce(s) Supporting Document(s) Follow Up [facility] FSWEKa2kFfYQLbSnVEIrFxyOXHraUGirWZAlM8U1BRnyXb5ICUqewuXkFLEfJq4+ONRoWO2raj8hBACk gMy 1zMWJoKemtS4PnSFXuq82SQJYhSJzJSiWgMpKmMBI1QMPxGQB9OOM5WqEkMglaMS4uIEZ4MZXkCPymKB WoQQbrXlSsWtjqQH6lHCqcAMmrWc9ZSP0eu8GcSTLgWTLeSzdQCMdyGGupIXPrHELrIHKwQ029mnMnYR 0QoMOhKCd7EMYnKdT5FEOyOzC1FBInLrPpVyGmZZVh PITkZXARFS1UXDMhgIIjCSNjFFykGD4wqqTpsHW8XE8TzUwrYKYzWWCDY2oiGzXjPHBgRMPqCD4bFdVn JMChDSFzHB9jGLTnUORaJSKkMM0pTQQfIhQxQQS+Pj4+Nc0PMS0wd8DnADQtLVLoUssXWBalURswSBBf TFGnOQ2RKOSqFOBojYLkXMUbIJJqDgA0WGKpY3Xwo9 44hnYcfuW6RA0FR5LtWCX2EEk9N5ogDcZlSHJeRDA+Pj4+R8TmmoTpuMMuVQZbJt3Cm370EH47moXpPa EnBDXtJk1IBT1lh4EvPLZxNVVwHcsXGRwxWDAeY2CvNPXiMgEsPM4CHP1xMF7WkBqjH2G2RjU6ySDcK7 jrMYeuI4L7zZRzM9qFSoghC2ShIpbviKXsCFveFavj gPZYSSGkSIEiA0HOLWGpZ67eHJ2zI95gn2GYlWOlCRRpKZP0tWEoOeeCP0ajNMTdYTT3FwWfDLLxU9o8 YNA3KMUePat4p8McjaGsdKQsjjQbfME6Jh2mjYViRO2RTaky7GxsEA3FnRh2rAfK7xONttTddkSKn6gx m9oFlCfFAOvtVch6k4dVfS346REYbEoesTlg4jhgZn a85a7b5je/7F7Vvf+9LjNz6a6mfX9OLOXPjWJXmDDFXUDI9YCM6WHyaFMuZKNK0evMquggyvQoJXVgi9 Zlpad+n6nRKo3Iv4dV/kXXl4tJxt+Tt3WOkMHB004F0EKL6BNhSEwqwJg57wF/4/h/mp33MDzEaX4zOj W06fU5WWhVEZwUNLEYXNDHVKxwHsuxHO8nAPIQZQHO RR5un8GnMvArVgTGOgTHIQdB6Z8zyV1bYWOz1ey8H3CZ90laeqg0vcf2gebFBmRL96hrLisDx5dgTjDK WfrPVZCJ34NfaLUIt6gLz12ySUYNtKRUuSc8dahzdojMhi40MmnFC1eyHzb2K72bsv/r0K9f0KRUElEE lP5ZZsO+oatzKwUEUDvQrfWM3Ov2JnY7aJl85H3RBa 4DsU2CbI6cOi5hrM5hbse5Zx0Wsg2o3Tpc05u7B0eqx199zWPG1K7y/hi87V3hkkxJQDIT+UcXHLzXPw 54iEjvPiK/EVdFMXV5+57jKyq+DZOvrF2kJjbiSRWK2qc4BC2VKl58V4x/oez/mbCQ/0/K/lPYf+laA2 DduN2jFWS8uRzs1GMxClb1B/7lX/7lX/7lX/7XAvj+ kYAFGZ4naYsVg4oauwBLhUqSLgaIBqTgPXLvFhP+kVZyNrEOZ0+xuBnuVlWK+r+qaSh33qN2mMr+Allyssa [file] Shelia/T9cIdgwDaEAEKixEjZrr8vKwFAwAvHUFr7NFWJt8lqhnScw4SgvculrZS2YvQVLz79q/kJEps3zX VfGRqvg5g/mxkyyItehD5N76GoOcHdGsn7/n+AmSZv tzVj4ITqZCQWuIYo+nCCnBwHC6fY+N+q4bzAysTxzVsP8e5s0gGX/bBrGNOSP2eDJURqobQV2frs/vAs LJYqLmWiiqGvJNr5/I22DuErKrdghAO11swL4b/FtebETUtYg/gnSa5cIAYd/KYtM3yXab7uBNKV2SS0 48SaA03KBasbl+YQoPBkhPa2go67pOrdeMmvTSINyf kV8rl/zSMekRewllpkxiAfchK5E+GbqOAtPJL4I6LMjLTXEEpd8W4GpP+zvDu8rmOBIPUGmx5VUtomYY o58MF3rtXcY6iuaWrKIt/sobWdnFG31gQUoI4EQl+SIUTky1nwGzsHpoiJlmio+KR4+Sh2DiME7I+sPD uWTGV4t37pcmPystHIYTZ9SwX3iFEc2FKU9iHXmhCg gl+qg5kxX/nBHCw+qi7RHpIL4ClXUeqTNMflENCwMHH11qfggqdkFulWpX2TgDum+iD5mdQuk/MUgcdC TSzkvzgU1PoCDsvFOtLSuh0DJpix7/e+9JBL54NqPBnSAXKSLE+8IMYSnYld77wffI3wgw1ONIIb0jQ+ 4nDVyvnNRIMC8jfoSf5ob2h0YTh94TjU9LfrJFJ5Kr aONtteczQySUv62XUTegM4AyYxM+EJK/Iga4BBPmSrtVlfZ8hCQeafsb/ro5nzswa1Q29q0ozyy/YVp+ WP1pjfbyHz6t4ZRbqjtr2IjkB8s4tyztNkQXYOKNbherx4UKDbr66cjWA1QXPA3EC1GBxl6lH/L/bXRp 61ou8/uk7Lap6go2av65tOJGLK1Kn/YjxXu2E1b8X8 ChvTtSr3D2de47lA8Y4k6LYcv/s9aCfF4Sh8kBV5VjJUR7utcxUpMGE4uIGDyfh2TUON4Nk92usjGX5S Ic Design Engineer/fwP0uUHWvzTGwknUp5XH/hhQBEU88myjdqrUinve2HlJxVzHovb/vfE9zJJyyQUf/Y3PcoysDHFvb 7VtZh7/i5CA5MLfym+UHUADAVFZFfF7FJlVT3l/7Aj YIuYzV56nPVD4sbNAbcYo3N/yLvP2iyEQlWj3zgdJ5I+gvRwrsohS5t0uIcd7H84T5jMwa+NSvDSw101 eOk+Y021Fi92ctvvwKxkW+gsv3gxavXnoL4y5KBhTd1oWJtna4QeFRGPv6+/p7+t6KIs8VyBbfRF41I9 vvQFJHH+1iScKMO0AY0s01LkAXQRebPS950frBucrR OKMTjQgBoZZROjQGtF9GZQGbR1O0+WZZutXRPlLO+naXycaK5M/rpJSukaMEZfpVgLsCSX9ba8yz7P+B VfkP6DYN9cr4FfJYa8x5dfa84bOzz+b+Vy2PdK7smp19YSwpWZOdaoljod9gLgoZLGfBv8WT+Annalise+CX [file] YE5N/rIbffMX8NdIiE6FrC9UwF1+ZCX+care mgr/JjHbxnB [file] LXKKCyYwCfGp4vHEmIlT7Xz0Y3IsRUlV6KWXaesslXXX62JZO9pasNukU+Rose Mary/nTIFmE+tI8Rz5Hwg/ i8cihdk4H54AFG5pXLjdXwAU9agZCWNnVd/jG++L/Vd+b969pPEE04+XZBLeN9O63XeOgDj8m94VQdnF tvH0cviV/A3Wg6GW5Dbfgm3DmNyEOeQWPHo8GrEo0z bWIae8DR1UZDY/4Fs4r/CYhIcDxGi+7Ie3ZyI4HRc1lc/VSXGCuJD2QDIuPh+m0ZnJivUsTxttu3ZHUS 3DGjVv4UFth56ON65kjsndg+XnLUbdhKvARbFFhj5cEJoaR9gcZ39EyZm7nHZ1j99XW8oOpjP8RGtoSS ZHdA93QyW4sbOQsbeyjJWYqVBhkvZiakK4UOpYNer3 uRNZR60R8+d7w8/Q53aXifj3O1DD6Tkg2jIYX0WRIWggDpyVbygu+8RNF8y3HJzpdVx4bMbhdR9wrE+e O5FhHh2RXs1OEKl8zHb5c3FN9tjdo+twQeYwOA0t/LST1WCaKd+YcFaSFZzF0w2qszGYSAXLgN7G5Fi1 le9Yg/orSabKoR6xAOlY176FOy07HXY/StEZwNagGZ s1V0hx9DMstrMQ4SrAivLw848yE+R54FgMCMYoFDCfc8nNqy1tN6mBPO0iHy7q17KOqXcr6feU+EGVY7 7pMGY6BVr7j13cE1/RHt7OCBBDhinE2KPbZ7RerjEWGG1F4qqeN05fGriNilPJfbS4NQ+8NY8sbQ/eeH 31cPhAmFPKB4C+3DVbZbkO8zPs16ynD4qgkMDUU967 E5wXJkkttjelF3CjzNH5e1CR/CP0TjeQW9XEcaxmaKfHLrumcbgX3lI7WhL9zLPr3sx8Of6J0Mix/JOSÉ MIGUEL [file] Up7TLkueByWzp/9ckgHeFmXEjCSCALnwzVwZS6DYw0+C/García+2TXkvZh9tOFkm3z7nyUn5VG8M+M7tvu [file] 4WtUOqjaCC9tF6D99i1X34kpwufQMTKJaW6gaf+Jean-Paul [file] MZz8hrFzFmytvABB1eneJLOGBql/FgXWKLdOJLZCvshzksTYPTFGYNHn7kWH4ZQGDX5D9n/gPLERP0lp EDsAnY2ZZg4y/5ytso/58oYvnkk5yHwRGKw//A10o4VNwytbZZ3GqfsxlcSxDeiZrOSr2EOyXu+4qpLn VLrn4UqUB2s2F/b4CgxChklxbjju/Y6nTvh/DgO78w 2Sm17t/FxOB3/E7KEa+ufZxIndidc0gVy5rp44YAFvZkZyQbhkLt87SfmT/yYOVE3tmxtjfqs0g+jVfJ GC4bqOFAXOa/Ex0TRE+OxbdETef/nRqUPF4pifivAS/x/YqvlgBMMXzfRZEd8haf8Oq43h/xJJ9DUfo7 1U5MJOhGVsfSNNKNi2ej65o63Vg4jad4+vQpvldg2y 5E88JvtGyPHh4jUmjJMm1r26yi8QfylEnBO5LizRo17ooWfnom1e8IssuwkWCZvwd8mk4j4oweEOQQWL kkGsPLsj/iF7Cp4w/8KCltLKUy0USczscNbK+W0xl0d/D65X7S6l9H93UlBGchmtnHvVwSxKgxX4Yw+v FsWUohhn64TXOl45SKo40jFXPVKgAUvpmAX+DrbNr/ YQZOLgghh+UzKQr8XxKUzp/GTMCtt/d/UylZkJPp1YQtMrke8sOGGpWsDJd/gPin+/vVU64ERd/h/YNT pd/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+X4L7wTx9jhp3cygFukaWgrZz2GQkXM8kKuwkwcRSn+UWcE7k0DTk2Lpa8bqzgvwLuEXmlhQ5N [file] MV7rRVG/eJLAL01pG2zBAEqU3zafciLUaybBoa1WCW5RLTlh3a8uIBn+luis enrique+XBxGpwfbBdeDJzEy6NCo [file] z29/Ojj5//Emissions Repair Technician+3NPzY+YeTlkjfozNc+Rg4cTgwiunJ+20myWGtQLn9wSx/rw5I1tbhNjuWViIoq4hZ0 [file] care mgr+WwD+pit0v/JlIQv3aC03pD5vBgHV2KYKZCgUp+w [file] tinajero/XAhsNq1cUSxLoRs0hUGfhp/3Okxs082t3uoJ2ia o0IcZjMXD5sTcx0M+SxRlq0lWrq36WQaPgiNxHmr7Vf5DHRPS3u17kDUBtLN6MpaAt6djsp7ULCzlyzK 0T8dlowD4B4M+Q+swokSDuM1sBI53BhKQiXwhtUGqXx4EbAf+cuHytGaeLuuwFpBz5Mfs+9ZybvojhPj k2Opn/Sy2fF6+3bfVjrOWAIOnLk6jK+gomSJuisU5/ VpiWQsGaauCdE72IscHzDbDEE/VghA9xa8BPUm9j/FszQ79KfHSXcME3g+0pxvrPcYZWAjmVFPPbsSmZ u28PXmIrmofrkWzlAhk/okPQ3pd/DklxwE1ZpUmmT/oyd6Dzslws/k3AlemLMT/forms analysis manager+izh7ntZiMCoqYK [file] R+hra08qpvpS7PhDCEvzr1Jm7Oal6vahA4qcmu [file] cNIKc4CCLjYWPVSwOIBHN2IUNbVGKbZjf7PDVJCMK9 OEJDRTA+LBobCQGbUrVCJNDSRXbTZsTLJTUxIFB9BOBTACm0PaLPIS0xJ4Vyq1JfCNPqWZGhSX8dybQw WXAnEe3SuQwbDBPsY1Y8cTWjE2tNHXQbMiXgILV3URFqGt6ncRSpKN1GUrwtJ4PdNOOoPMZZJHYBDvw+ TIZW31MsvwJVIXt6X8CgytuPu6Jex25BqOpENl9DeK R/wQfAEAAsk5XtHyrpTLVzemBzN7HjeRKQMitXNE4CCk5VYK8dz1PcAIGrAXwolyEoRraFTIyigHSdfP laYRYDTcNgRRhnAmHFBlYhAH5A ID Date Data Source [id number] 04/26/2020 02:03:00 PM EDT [facility] Name Value Range Interpretation Code Description Data Marylou rce(s) Supporting Document(s) Calcidiol [Mass/volume] in Serum or Plasma 37.2 ng/mL 30.0- 100.0 Normal (applies to non-numeric results) [facility] ([facility]) Ferritin [Mass/volume] in Serum or Plasma 30 ng/mL 8-252 Normal (applies to non- numeric results) [facility] ([facility] Iron [Mass/volume] in Serum or Plasma 124 ug/dL 50-170 Normal (applies to non- numeric results) [facility] ([facility]) Cobalamin (Vitamin B12) [Mass/volume] in Serum or Plasma 1823 pg /mL 247-911 Above high normal [facility] ([facility]) VITAMIN B12 NORMAL RANGE NORMAL 247 - 911 PG/ML INDETERMINATE 211 - 246 PG/ML DEFICIENT LESS THAN 211 PG/ML ID Date Data Source [id number] 04/26/2020 02:03:00 PM EDT [facility] Name Value Range Interpretation Code Description Data Marylou rce(s) Supporting Document(s) White Blood Count 5.9 10 4.0-10.0 Normal (applies to non-numeri c results) [facility] ([facility] Red Blood Count 4.19 10 4.00-5.40 Normal (applies to non-numeric results) [facility] ([facility] Hemoglobin 14.1 g/dL 12.0-15.5 Normal (applies to non-numeric resul ts) [facility] ([facility] Hematocrit 41.8 % 36.0-47.0 Normal (applies to non-numeric resul ts) [facility] ([facility] Mean Corpuscular Volume 99.8 fl 80.0-96.0 Above high normal [facility] ([facility] Mean Corpuscular HGB Conc 33.7 g/dL 32.0-36.5 Normal (applies to non-numeric results) [facility] ([facility] Red Cell Distribution Width 13.1 % 11.5-14.5 Norm al (applies to non-numeric results) [facility] ([facility] Mean Corpuscular Hemoglobin 33.7 pg 27.0-33.0 Above high normal [facility] ([facility] Lymph % 28.8 % 24.0-44.0 Normal (applies to non-numeric resul ts) [facility] ([facility] Neutrophils % 52.1 % 36.0-66.0 Normal (applies to non-numeric re sults) [facility] ([facility] Platelet Count, Automated 182 10 150-450 Normal (applies to non-numeric results) [facility] ([facility]) Eos % 10.2 % 0.0-3.0 Above high normal [facility] ([facility]) [place] % 7.5 % 0.0-5.0 Above high normal [facility] ([facility]) Baso % 1.2 % 0.0-1.0 Above high normal [facility] ([facility]) Immature Granulocyte % 0.2 % 0-3.0 Normal (applies to non-n umeric results) [facility] ([facility] Neutrophils # 3.1 10 1.5-8.5 Normal (applies to non-numeric re sults) [facility] ([facility] Nucleated Red Blood Cell % 0.0 % 0-0 Normal (applies to n on-numeric results) [facility] ([facility] [place] # 0.4 10 0.0-0.8 Normal (applies to non-numeric resul ts) [facility] ([facility] Lymph # 1.7 10 1.5-5.0 Normal (applies to non-numeric resul ts) [facility] ([facility] Eos # 0.6 10 0.0-0.5 Above high normal [facility] ([facility] Baso # 0.1 10 0.0-0.2 Normal (applies to non-numeric resul ts) [facility] ([facility] ID Date Data Source [id number] 04/26/2020 02:03:00 PM EDT [facility] ([facility] Name Value Range Interpretation Code Description Data Marylou rce(s) Supporting Document(s) Hemoglobin A1c 6.6 % Normal (applies to non-numeric r esults) [facility] ([facility]) <content>REFERENCE RANGES:</content><br/ ><content></content>
<content><=5.6% NORMAL</content>
<content>5.7-6.4% SUGGESTS IMPAIRED GLUCOSE METABOLISM/PREDIABETIC</content>
<content>>= 6.5% ABNORMAL</content>
<content></content> Estimated Average Glucose 143 mg/dL 60-110 Above high normal [facility] ([facility]) ID Date Data Source [id number] 04/26/2020 02:03:00 PM EDT [facility] ([facility] Name Value Range Interpretation Code Description Data Marylou rce(s) Supporting Document(s) Ammonia [Mass/volume] in Blood 24 uMOL/L N ormal (applies to non-numeric results) [facility] ([facility] ID Date Data Source [id number] 04/26/2020 02:03:00 PM EDT [facility] ([facility] Name Value Range Interpretation Code Description Data Marylou rce(s) Supporting Document(s) Glucose, Fasting 214 mg/dL 70-100 Above high normal [facility] ([facility] Creatinine For GFR 0.76 mg/dL 0.55-1.30 Normal (applies to non -numeric results) [facility] ([facility] Blood Urea Nitrogen 11 mg/dL 7-18 Normal (applies to non-nume jr results) [facility] ([facility] Potassium Serum 4.2 meq/L 3.5-5.1 Normal (applies to non-numeric results) [facility] ([facility]) Glomerular Filtration Rate Laboratory test result Normal (applies to non- numeric results) [facility] ([facility]) <content>Units are mL/min/1.73 m2</content>
<content></content>
<content>Chronic Kidney Disease Staging per NKF:</content>
<content></content>
<content>Stage I & II GFR >=60 Normal to Mildly Decreased</content>
<content>Stage III GFR 30- 59 Moderately Decreased</content>
<content>Stage IV GFR 15-29 Severely Decreased</content>
<content>Stage V GFR <15 Very Little GFR Left</content>
<content>ESRD GFR <15 on [employer]UST[employer] TEAM[employer]ATE</content>
<content></content> Sodium Level 140 meq/L 136-145 Normal (applies to non-numeric res ults) [facility] ([facility] Chloride Level 109 meq/L 98-107 Above high normal [facility] ([facility] Carbon Dioxide Level 26 meq/L 21-32 Normal (applies to non-num cruz results) [facility] ([facility] Anion Gap 5 meq/L 8-16 Below low normal [facility] ( [facility] Calcium Level 9.2 mg/dL 8.8-10.2 Normal (applies to non-numeric re sults) [facility] ([facility] Ast/Sgot 32 U/L 7-37 Normal (applies to non-numeric resul ts) [facility] Alt/SGPT 43 U/L 12-78 Normal (applies to non-numeric resul ts) [facility] ([facility] Bilirubin,Total 0.8 mg/dL 0.2-1.0 Normal (applies to non-numeric results) [facility] ([facility] Alkaline Phosphatase 121 U/L 45-117 Above high normal [facility] ([facility] Albumin 3.8 GM/DL 3.2-5.2 Normal (applies to non-numeric resul ts) [facility] ([facility] Albumin/Globulin Ratio 1.0 1.2-2.2 Below low normal [facility] ([facility] Total Protein 7.8 GM/DL 6.4-8.2 Normal (applies to non-numeric re sults) [facility] ([facility]) ID Date Data Source [id number] 04/21/2020 12:00:00 PM EDT [facility] ([facility]) Name Value Range Interpretation Code Description Data Marylou rce(s) Supporting Document(s) Coronavirus 2019 Nasopharygeal Laboratory test result [facility] ([facility]) This test was developed and its performa nce characteristics determined by [facility]. This test has not been FDA cleared [...] detected) result in this assay. Performed at: [facility] [id number] Front Desk Receptionist: Sheri Mcclellan MD, Phone: [phone] Not Detected ID Date Data Source [id number] 04/21/2020 12:00:00 PM EDT [facility] Name Value Range Interpretation Code Description Data Marylou rce(s) Supporting Document(s) SARS coronavirus 2 RNA [facility] This lab was ordered by [facility] and reported by [facility]. ID Date Data Source [id number] 04/21/2020 10:54:00 AM EDT [facility] ([facility] Name Value Range Interpretation Code Description Data Marylou rce(s) Supporting Document(s) aPTT in Platelet poor plasma by Coagulation assay 35.6 s 25.0-38.4 Normal (applies to non-numeric results) [facility] ([facility]) ID Date Data Source [id number] 04/21/2020 10:54:00 AM EDT [facility] Name Value Range Interpretation Code Description Data Marylou rce(s) Supporting Document(s) Prothrombin Time 14.5 s 11.8-14.0 Above high normal [facility] Inr 1.10 Normal (applies to non-numeric resul ts) [facility] ([facility] THERAPUTIC HUMAN INR VALUES INDICATIONS NORMAL RANGES PROPHYLAXIS/TREATMENT OF: VENOUS THROMBOSIS 2.0-3.0 PULMONARY EMBOLISM 2.0-3.0 PREVENTION OF SYSTEMIC EMBOLISM FROM: TISSUE HEART VALVES 2.0-3.0 ACUTE MYOCARDIAL INFARCTION 2.0-3.0 VALVULAR HEART DISEASE 2.0-3.0 ATRIAL FIBRILLATION 2.0-3.0 MECHANICAL VALVES(HIGH RISK) 2.5-3.5 RECURRENT MYOCARDIAL INFARCTION 2.5-3.5 ID Date Data Source [id number] 04/21/2020 10:54:00 AM EDT [facility] ([facility] Name Value Range Interpretation Code Description Data Marylou rce(s) Supporting Document(s) Platelets [#/volume] in Blood by Automated count 162 10 150-450 Normal (applies to non-numeric results) [facility] ([facility] ID Date Data Source [id number] 04/21/2020 10:54:00 AM EDT [facility] ([facility]) Name Value Range Interpretation Code Description Data Marylou rce(s) Supporting Document(s) Platelets [#/volume] in Blood by Automated count 162 10 150-450 [facility] ([facility]) Prothrombin time (PT) Laboratory test result [facility] ([facility]) ID Date Data Source [id number] 04/21/2020 10:54:00 AM EDT [facility] ([facility]) Name Value Range Interpretation Code Description Data Marylou rce(s) Supporting Document(s) Inr 1.10 [facility] ([facility]) THERAPUTIC HUMAN INR VALUES INDICATIONS NORMAL RANGES PROPHYLAXIS/TREATMENT OF: VENOUS THROMBOSIS 2.0-3.0 PULMONARY EMBOLISM 2.0-3.0 PREVENTION OF SYSTEMIC EMBOLISM FROM: TISSUE HEART VALVES 2.0-3.0 ACUTE MYOCARDIAL INFARCTION 2.0-3.0 VALVULAR HEART DISEASE 2.0-3.0 ATRIAL FIBRILLATION 2.0-3.0 MECHANICAL VALVES(HIGH RISK) 2.5-3.5 RECURRENT MYOCARDIAL INFARCTION 2.5-3.5 Prothrombin Time 14.5 s 11.8-14.0 [facility] ([facility]) Partial Thromboplastin Time 35.6 s 25.0-38.4 [facility] ([facility]) ID Date Data Source [id number] 04/20/2020 09:55:00 AM EDT [facility] ([facility]) Name Value Range Interpretation Code Description Data Marylou rce(s) Supporting Document(s) Erythrocyte sedimentation rate by Westergren method 38 mm/hr 0-30 [facility] ID Date Data Source [id number] 04/20/2020 09:55:00 AM EDT [facility] ([facility]) Name Value Range Interpretation Code Description Data Marylou rce(s) Supporting Document(s) White Blood Count 10.8 10 4.0-10.0 [facility] ([facility]) Hemoglobin 11.7 g/dL 12.0-15.5 [facility] ([facility]) Hematocrit 35.3 % 36.0-47.0 [facility] ([facility]) Red Blood Count 3.76 10 4.00-5.40 [facility] ([facility]) Mean Corpuscular Hemoglobin 31.1 pg 27.0-33.0 [facility] ([facility]) Mean Corpuscular HGB Conc 33.1 g/dL 32.0-36.5 [facility] ([facility]) Mean Corpuscular Volume 93.9 fl 80.0-96.0 [facility] ([facility]) Red Cell Distribution Width 13.6 % 11.5-14.5 [facility] ([facility] ) Platelet Count, Automated 78 10 150-450 [facility] ([facility] ) Scan Verified machine results Neutrophils % 87.4 % 36.0-66.0 [facility] ([facility]) Lymph % 9.3 % 24.0-44.0 [facility] ([facility]) [place] % 2.1 % 0.0-5.0 [facility] ([facility]) Baso % 0.1 % 0.0-1.0 [facility] ([facility]) Immature Granulocyte % 1.1 % 0-3.0 [facility] ([facility]) Eos % 0.0 % 0.0-3.0 [facility] ([facility]) Nucleated Red Blood Cell % 0.0 % 0-0 [facility] ([facility] Neutrophils # 9.4 10 1.5-8.5 [facility] ([facility]) Lymph # 1.0 10 1.5-5.0 [facility] ([facility] [place] # 0.2 10 0.0-0.8 [facility] ([facility]) Eos # 0.0 10 0.0-0.5 [facility] ([facility]) Baso # 0.0 10 0.0-0.2 [facility] ([facility]) ID Date Data Source [id number] 03/15/2020 12:00:00 PM EDT [facility] ([facility]) Name Value Range Interpretation Code Description Data Marylou rce(s) Supporting Document(s) Coronavirus 2019 Nasopharygeal Laboratory test result [facility] ([facility] ) Testing was performed using the jacoby(R) SARS-CoV-2 test. This test was developed and its performance characteristics determined by [facility]. This test has not been FDA cleared [...] result in this assay. Performed at: - [facility] [id number] Front Desk Receptionist: Sheri Mcclellan MD, Phone: [phone] Not Detected ID Date Data Source [id number] 03/15/2020 12:00:00 PM EDT [facility] Name Value Range Interpretation Code Description Data Marylou rce(s) Supporting Document(s) SARS coronavirus 2 RNA [facility] This lab was ordered by [facility] and reported by [facility]. ID Date Data Source [id number] 03/09/2020 10:49:40 AM EDT [facility] Name Value Range Interpretation Code Description Data Marylou rce(s) Supporting Document(s) Progress Note [facility] [id number] [facility] [file] [id number] ID Date Data Source [id number] 03/05/2020 08:47:00 AM EDT [facility] ([facility] Name Value Range Interpretation Code Description Data Marylou rce(s) Supporting Document(s) 21-Hydroxylase Ab [Units/volume] in Serum Laboratory test result [facility] ([facility]) SEE SEPARATE REPORT ID Date Data Source [id number] 03/05/2020 08:47:00 AM EDT [facility] ([facility] ) Name Value Range Interpretation Code Description Data Marylou rce(s) Supporting Document(s) Testosterone Total For T&D Laboratory test result [facility] ([facility]) See Separate Report Testosterone Free (Direct) Laboratory test result [facility] ([facility]) See Separate Report ID Date Data Source [id number] 03/05/2020 08:47:00 AM EDT [facility] ([facility]) Name Value Range Interpretation Code Description Data Marylou rce(s) Supporting Document(s) Adrenal Ab [Units/volume] in Serum Laboratory test result [facility] ([facility]) See Separate Report Testing performed at reference lab . Report copy to follow on a separate form. 04/20/20 REF LAB#:[id number] Estradiol (E2) [Moles/volume] in Serum or Plasma by Hi gh sensitivity method Laboratory test result [facility] ([facility]) See Separate Report ID Date Data Source [id number] 02/10/2020 07:09:00 AM EDT [facility] ([facility]) Name Value Range Interpretation Code Description Data Marylou rce(s) Supporting Document(s) Inr 1.14 Normal (applies to non-numeric resul ts) [facility] ([facility]) THERAPUTIC HUMAN INR VALUES INDICATIONS NORMAL RANGES PROPHYLAXIS/TREATMENT OF: VENOUS THROMBOSIS 2.0-3.0 PULMONARY EMBOLISM 2.0-3.0 PREVENTION OF SYSTEMIC EMBOLISM FROM: TISSUE HEART VALVES 2.0-3.0 ACUTE MYOCARDIAL INFARCTION 2.0-3.0 VALVULAR HEART DISEASE 2.0-3.0 ATRIAL FIBRILLATION 2.0-3.0 MECHANICAL VALVES(HIGH RISK) 2.5-3.5 RECURRENT MYOCARDIAL INFARCTION 2.5-3.5 Prothrombin Time 14.3 s 11.8-14.0 Above high normal [facility] ([facility]) ID Date Data Source [id number] 02/10/2020 07:09:00 AM EDT [facility] ([facility]) Name Value Range Interpretation Code Description Data Marylou rce(s) Supporting Document(s) Folate [Mass/volume] in Red Blood Cells Laboratory test result [facility] ([facility] Calcidiol [Mass/volume] in Serum or Plasma Laboratory test result [facility] ([facility]) ID Date Data Source [id number] 02/10/2020 07:09:00 AM EDT [facility] ([facility]) Name Value Range Interpretation Code Description Data Marylou rce(s) Supporting Document(s) Hemoglobin 12.9 g/dL 12.0-15.5 Normal (applies to non-numeric resul ts) [facility] ([facility]) Red Blood Count 3.87 10 4.00-5.40 Below low normal [facility] ([facility]) White Blood Count 6.0 10 4.0-10.0 Normal (applies to non-numeri c results) [facility] ([facility]) Mean Corpuscular Volume 98.4 fl 80.0-96.0 Above high normal [facility] ([facility]) Mean Corpuscular Hemoglobin 33.3 pg 27.0-33.0 Above high normal [facility] ([facility]) Hematocrit 38.1 % 36.0-47.0 Normal (applies to non-numeric resul ts) [facility] ([facility]) Mean Corpuscular HGB Conc 33.9 g/dL 32.0-36.5 Normal (applies to non-numeric results) [facility] ([facility] Red Cell Distribution Width 13.5 % 11.5-14.5 Norm al (applies to non-numeric results) [facility] ([facility]) Platelet Count, Automated 142 10 150-450 Below low normal [facility] ([facility]) Lymph % 30.5 % 24.0-44.0 Normal (applies to non-numeric resul ts) [facility] ([facility]) Neutrophils % 48.6 % 36.0-66.0 Normal (applies to non-numeric re sults) [facility] ([facility]) [place] % 8.6 % 0.0-5.0 Above high normal [facility] ([facility]) Eos % 11.1 % 0.0-3.0 Above high normal [facility] ([facility]) Baso % 1.0 % 0.0-1.0 Normal (applies to non-numeric resul ts) [facility] ([facility]) Immature Granulocyte % 0.2 % 0-3.0 Normal (applies to non-n umeric results) [facility] ([facility]) Neutrophils # 2.9 10 1.5-8.5 Normal (applies to non-numeric re sults) [facility] ([facility]) Nucleated Red Blood Cell % 0.0 % 0-0 Normal (applies to n on-numeric results) [facility] ([facility]) Lymph # 1.8 10 1.5-5.0 Normal (applies to non-numeric resul ts) [facility] ([facility]) Eos # 0.7 10 0.0-0.5 Above high normal [facility] ([facility]) [place] # 0.5 10 0.0-0.8 Normal (applies to non-numeric resul ts) [facility] ([facility]) Baso # 0.1 10 0.0-0.2 Normal (applies to non-numeric resul ts) [facility] ([facility] ID Date Data Source [id number] 02/10/2020 07:09:00 AM EDT [facility] ([facility]) Name Value Range Interpretation Code Description Data Marylou rce(s) Supporting Document(s) Ferritin [Mass/volume] in Serum or Plasma Laboratory test result [facility] ([facility]) ID Date Data Source [id number] 02/10/2020 07:09:00 AM EDT [facility] ([facility]) Name Value Range Interpretation Code Description Data Marylou rce(s) Supporting Document(s) Ammonia [Mass/volume] in Blood Laboratory test result [facility] ([facility]) ID Date Data Source [id number] 01/23/2020 11:08:00 AM EDT [facility] ([facility]) Name Value Range Interpretation Code Description Data Marylou rce(s) Supporting Document(s) Hemoglobin A1c 6.9 % Normal (applies to non-numeric r esults) [facility] ([facility]) REFERENCE RANGES: 4.5-5.6% NORMAL 5.7-6.4% SUGGESTS IMPAIRED GLUCOSE META BOLISM >= 6.5% ABNORMAL Estimated Average Glucose 151 mg/dL 60-110 Above high normal [facility] ([facility]) ID Date Data Source [id number] 01/23/2020 11:08:00 AM EDT [facility] ([facility]) Name Value Range Interpretation Code Description Data Marylou rce(s) Supporting Document(s) Thyroid Stimulating Hormone 2.460 uIU/ML 0.358-3.740 Norm al (applies to non- numeric results) [facility] Free T4 0.71 ng/dL 0.76-1.46 Below low normal [facility] ( [facility] ID Date Data Source [id number] 01/23/2020 11:08:00 AM EDT [facility] ([facility]) Name Value Range Interpretation Code Description Data Marylou rce(s) Supporting Document(s) Cholesterol Level 128 mg/dL Normal (applies to non-numeri c results) [facility] Triglycerides Level 51 mg/dL Normal (applies to non-nume jr results) [facility] ([facility]) LDL Cholesterol 56 mg/dL Normal (applies to non-numeric results) [facility] ([facility] Non-HDL-C 66 mg/dL Normal (applies to non-numeric resul ts) [facility] HDL Cholesterol 62 mg/dL Normal (applies to non-numeric results) [facility] ([facility]) Cholesterol Risk Ratio 2.064 Normal (applies to non-n umeric results) [facility] ID Date Data Source [id number] 01/23/2020 11:08:[address] [facility]) Name Value Range Interpretation Code Description Data Marylou rce(s) Supporting Document(s) Glucose, Fasting 161 mg/dL 70-100 Above high normal [facility] Glomerular Filtration Rate Laboratory test result Normal (applies to non- numeric results) [facility] ([facility]) <content>Units are mL/min/1.73 m2</content>
<content></content>
<content>Chronic Kidney Disease Staging per NKF:</content>
<content></content>
<content>Stage I & II GFR >=60 Normal to Mildly Decreased</content>
<content>Stage III GFR 30- 59 Moderately Decreased</content>
<content>Stage IV GFR 15-29 Severely Decreased</content>
<content>Stage V GFR <15 Very Little GFR Left</content>
<content>ESRD GFR <15 on [employer]</content>
<content></content> Creatinine For GFR 0.70 mg/dL 0.55-1.30 Normal (applies to non -numeric results) [facility] ([facility]) Blood Urea Nitrogen 14 mg/dL 7-18 Normal (applies to non-nume jr results) [facility] ([facility] Potassium Serum 4.1 meq/L 3.5-5.1 Normal (applies to non-numeric results) [facility] Sodium Level 148 meq/L 136-145 Above high normal [facility] ([facility] Carbon Dioxide Level 28 meq/L 21-32 Normal (applies to non-num cruz results) [facility] ([facility] Anion Gap 6 meq/L 8-16 Below low normal [facility] ( [facility] Chloride Level 114 meq/L 98-107 Above high normal [facility] ([facility] Ast/Sgot 36 U/L 7-37 Normal (applies to non-numeric resul ts) [facility] Alkaline Phosphatase 113 U/L 45-117 Normal (applies to non-num cruz results) [facility] ([facility]) Calcium Level 8.9 mg/dL 8.8-10.2 Normal (applies to non-numeric re sults) [facility] ([facility]) Alt/SGPT 47 U/L 12-78 Normal (applies to non-numeric resul ts) [facility] Albumin 3.4 GM/DL 3.2-5.2 Normal (applies to non-numeric resul ts) [facility] Total Protein 7.5 GM/DL 6.4-8.2 Normal (applies to non-numeric re sults) [facility] ([facility]) Bilirubin,Total 0.7 mg/dL 0.2-1.0 Normal (applies to non-numeric results) [facility] ([facility]) Albumin/Globulin Ratio 0.8 1.2-2.2 Below low normal [facility] ([facility]) ID Date Data Source [id number] 01/23/2020 11:08:00 AM EDT [facility] ([facility]) Name Value Range Interpretation Code Description Data Marylou rce(s) Supporting Document(s) Ammonia [Mass/volume] in Blood 58 uMOL/L Above high zari l [facility] ([facility]) ID Date Data Source [id number] 01/23/2020 11:08:00 AM EDT [facility] ([facility]) Name Value Range Interpretation Code Description Data Marylou rce(s) Supporting Document(s) White Blood Count 5.2 10 4.0-10.0 Normal (applies to non-numeri c results) [facility] ([facility]) Hemoglobin 13.7 g/dL 12.0-15.5 Normal (applies to non-numeric resul ts) [facility] ([facility] Red Blood Count 4.02 10 4.00-5.40 Normal (applies to non-numeric results) [facility] ([facility] Mean Corpuscular Hemoglobin 34.1 pg 27.0-33.0 Above high normal [facility] ([facility]) Mean Corpuscular Volume 98.0 fl 80.0-96.0 Above high normal [facility] ([facility]) Hematocrit 39.4 % 36.0-47.0 Normal (applies to non-numeric resul ts) [facility] ([facility]) Mean Corpuscular HGB Conc 34.8 g/dL 32.0-36.5 Normal (applies to non-numeric results) [facility] ([facility] Red Cell Distribution Width 13.1 % 11.5-14.5 Norm al (applies to non-numeric results) [facility] ([facility]) Platelet Count, Automated 161 10 150-450 Normal (applies to non-numeric results) [facility] ([facility] Neutrophils % 50.5 % 36.0-66.0 Normal (applies to non-numeric re sults) [facility] ([facility]) [place] % 9.3 % 0.0-5.0 Above high normal [facility] ([facility]) Lymph % 26.1 % 24.0-44.0 Normal (applies to non-numeric resul ts) [facility] ([facility]) Immature Granulocyte % 0.2 % 0-3.0 Normal (applies to non-n umeric results) [facility] ([facility]) Baso % 2.1 % 0.0-1.0 Above high normal [facility] ([facility]) Eos % 11.8 % 0.0-3.0 Above high normal [facility] ([facility]) Lymph # 1.4 10 1.5-5.0 Below low normal [facility] ( [facility] Neutrophils # 2.6 10 1.5-8.5 Normal (applies to non-numeric re sults) [facility] ([facility]) Nucleated Red Blood Cell % 0.0 % 0-0 Normal (applies to n on-numeric results) [facility] ([facility] Baso # 0.1 10 0.0-0.2 Normal (applies to non-numeric resul ts) [facility] ([facility]) Eos # 0.6 10 0.0-0.5 Above high normal [facility] ([facility]) [place] # 0.5 10 0.0-0.8 Normal (applies to non-numeric resul ts) [facility] ([facility]) ID Date Data Source [id number] 11/04/2019 11:21:00 AM EDT [facility] ([facility]) Name Value Range Interpretation Code Description Data Marylou rce(s) Supporting Document(s) Riacw-9-wlmkvylklqd.tumor marker [Mass/volume] in Serum or Plasm a 3.2 ng/mL Normal (applies to non-numeric results) [facility] THE AFP ASSAY IS PERFORMED ON THE [employer]R BY CHEMILUMINESCENCE AND SHOULD NOT BE COMPARED INTERCHANGEABLY WITH OTHER METHODS. IT SHOULD NOT BE USED ALONE A SCREENING TEST OR DIAGNOSIS FOR THE PRESENCE OR ABSENCE OF MALIGNANT DISEASE. THESE RESULTS ARE NOT INTERPRETABLE IN FEMALES. PREDICTIONS OF DISEASE RECURRENCE SHOULD NOT BE BASED SOLELY ON VALUES OBTAINED FROM SERIAL PATIENT SERUM VALUES. ID Date Data Source [id number] 11/04/2019 11:21:00 AM EDT [facility] Name Value Range Interpretation Code Description Data Mraylou rce(s) Supporting Document(s) Prothrombin Time 14.7 s 11.8-14.0 Above high normal [facility] ([facility]) Inr 1.17 Normal (applies to non-numeric resul ts) [facility] ([facility]) THERAPUTIC HUMAN INR VALUES INDICATIONS NORMAL RANGES PROPHYLAXIS/TREATMENT OF: VENOUS THROMBOSIS 2.0-3.0 PULMONARY EMBOLISM 2.0-3.0 PREVENTION OF SYSTEMIC EMBOLISM FROM: TISSUE HEART VALVES 2.0-3.0 ACUTE MYOCARDIAL INFARCTION 2.0-3.0 VALVULAR HEART DISEASE 2.0-3.0 ATRIAL FIBRILLATION 2.0-3.0 MECHANICAL VALVES(HIGH RISK) 2.5-3.5 RECURRENT MYOCARDIAL INFARCTION 2.5-3.5 ID Date Data Source [id number] 11/02/2019 11:00:00 AM EDT [facility] Name Value Range Interpretation Code Description Data Marylou rce(s) Supporting Document(s) Follow Up [facility] ASXFHb7wLhBNWfQjANJcAjiRUWpoYSqtRYCcU2V5YOiwAm6WAXlilfKhETZjCx9+FSOcNS2gbr7kGFAn gMy [file] /luis carlos+/GOVvDcWw0sxxa1bJMdM8CDGwdClx2zBhbXse [file] aNlZ+lnVV1M4jtlyLEwFvRcbSAApeYWApIfCCNBShr/vp of customer experience strategy+8l4f5h/jmFLFPu6BVwUgwniICFKX/N0hwq [file] MIUIFJ+community service officer coordinator+wFVfxuynVmHNkfyXy1GvSxpkD7MFOFuXf5QDWyq63A4n9Q9zOrln7jVgq46wCpzAdF5gs [file] director 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/gbmprg19xnyFoESRlAOpDZZfUrSgfDlbPpYKAp [file] XKFrohNreg/rr4iIlx/vdg7F5/jgvJlBAzHo7HqCskpZUi6e7jRDX20+9/+KQbFei+vp of customer experience strategy+tH+T2IWOvL3 [file] rU6fS14hmyibBo9zygrdkk8atLY0h9MIZ0vp5n/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 [file] YaoFN+Barrie+1qrzUqML3uar+jMUynw/2zgCz36kuMao552otTVzu4TAw68QhC7MBc2bjI59xDH5ZV+8kx AiuvjuR9jXmAXu7l5uiR+fXp9NvfuELLUPUw9C/mlW w1muZ3Nfw+m+Vyb82Q1IFgkZSzxYIiv2sODspX6guX8U67zQOUFJOSRywQwqrWOMj5rCcWu8u5stEdVX uNpELybNUF8YIFwC+zGwiHil4CNiaBHFFTSNZ1l350vThBcWVNV0rv1WpBM3uEWn9YGKRZTsDMZMR+St TMDTAo/VKzZVQHj3w9VVDdIUANF7SfNyMKA9BEVjou tDhuTXrrA4/mCZt5/d3PpNYH9HXx0nbPhDvWWyBDXxFFabF/RcEjZ7DsWI3LZV0y9PTEybrToLE3QiF1 /G6IDFch+BQxb4XxPPc+j+E/r82tIW45M2PzZx2itC2VqlNMm7FWWBFnIu16o2hGWOoYENnCaQ6m9Fke cFqyxj5cmgilapqfEEz8LFr9OIEy4winxQR1uoAUrb doEGcaU0rF7nZMUcfbD4HvZdzmksDYt+/S3SdtvpzN3ZzESHisFhcUGo8nvR1QkNf3tszHuaC2IfP5na y5o1I2qXjdCFGAHd4xVpfXR6GcoKdHisuRoZzpA55l1GPLVxO9ie2swxMS+tjHGkxc+vMEXVtDvv3hHd U7d8ZRjfoY1uoTycChf7tZPCiN1cBg++fpRpEeWvDR kGDrQbbitMrmM7WbL3Ig1SHEoZ4D2dvbGAs/yBLg8nxFoQ+Ky//aOXMOnZNO3N59XRsoH6ABnWfd8/Ic Design Engineer [file] H7mxjPcBcs6Q0p/EKKcQnu9vwVPbdzc036CDVBXfQ087m5A/Qui6CsGAJq13oRW+lSINf7rzUpLF+trevon kzWbJ1GV+EtgsJ7z2amFrifaiWEhYIwfuMI5UFV3F0pP/hYMXs+RvOHnnB04sVyrvjNHPZ0IFB+Y9NJk 5n81B7m+unYlFkaY01+BGzbky39CV8S1nsQLT+CE5j XiTxzwtezBnxXzZ/QscD/vtylkZ6Dv6qHvL7etg8i35qeBkuc8JWI1G3dQY2w75ThLQ8W5WvgdCWehcQ HQMhx7Mw0k7V4go7b6RO/ce7ZgfvZBLvNpbKUJdM4ZdZXX5ji2SA6fMqFWxXI0gSQ3lnCIb+1hwKbMCp Hg3+yOXxq0t73fjHqF1nweHe4b8b84szbJ82Cc0t3B /D7/178FcdaPB8rI8A+MSjOU8Ej+tIyzQv0OmYUjz3j3TyV1oZXy9iobjCkIAAnL/roHMzBcPy/UYV5c ZGIba+AVymDbnMklHpTIt07CfzZgCtaLDtbaMtzgBIOdzxNfZekzowR31E0X5lcMcKBlgyD07jhqLTzx pVyDDPQPD9p6gYnze/JRFNa3VvwVCim+vyGWu4T0Ri zqBKFuwf86eMFeHc78YydpqPTrcwLomIHW+HKRUAhEbQzwSHTTPKPP9MC5M0NosfOhDAal+VatBmahm1 nj5QvA2mg6cen7xQHF8TB/oQ/4DDZmF+ZSXDRDbXOa2M4q7CnBXSWINdkQy9dX1qNcRuu+WvUaRX9QzC 9q6heyxAan62rqgU9OkSGJ2ECzrLDGvR1yEFAle3Un c6gqEAHIoA6dA/p0DQki0RuWHSBr17Uvq3aZbJNLcd6tEyp77bUabds9mBvoGoIEbmNA8IDLbqeubiOz /ITKc7gtnZh0H555x1nrWfWLuWdvOGSnWX4YX9gS325obwfPPplSHlC8IcxTA1kuP4NFpgd+2g64QXRi rCRJzPnrkQ7oN9hRJX6+/Spot Man+yuWH0f2jTwMIEfjsDg [file] dcVvD0cVeMpu6o+z1h+dHolmsxSR5L6dSPM35U+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 [file] 39p/4pyvkpC7TCuHBxXANLbLP5Q4MGh77W+Bw+ [file] 68RnG5PiFYCq0ghXiJNRcwD+9s+Ic Design Engineer+f4FdQZPY3qzg [file] real estate paralegal/K++Le0jWlkNo23cKgtT1cUX81uk7jJUWbv5WF54J2b4hR1lY7hd/4ZtpXAlkKEYSR06ILOVC33i0 [file] Hmo4A820E5smio3896/Fsg457QYkp28fnmaludRf3f 54nJG8O924yDMGmGLljnsEqjlEsZGgFdWK14ohTIg0ITHg8D1YDXJm7nd5D57x/uO9x7pGFpGLPnR7Dw zf2HJTGdrmHc95h28VH2qWl647KKOAY0v+DusotSgBAfhVu97K9NhNqnRA66XYiCCXBKu/Le5px8/QKW shjjPXvFO7e+GbG/nzUuJnb4jIJyRJWWScmxkh9/Na zuVfrtY94KRM8NR1VYHVNBflsf3zSM4j4LZV2Ly4qp3iy5bPwsNpQU28nm9jFMnULdzxS3LjBXh7LMvM jXEznJc/I0fMNfis88I1nv+xyRF6xgL8faA73TcnhMeXdnrlhw+GmU/pO3j/4bKk2VnduxZq2i0KKwnF YwrwFIn+FASHION DIRECTOR PARTY PLAN SALES/+tZ2OMsKHUd76K8+Wp1Z//r/O3wpG5 [file] PHLEBOTOMIST PART TIME/5JmSTIVA7RgGGL931Emz1svdhzd0s3dReuZUshhfFSKC [file] 8GnobypkmA325PCXyuDLXKA/3ysgwttrHqJTvN/production painter [file] qY4z3W6l+WxrHuKp5MxLoZzKpdaHMOiYVH6y5EqYeiCmFLwSbeTAaCaxDkcvb9AumL4uD+program management manager+F2GzTm [file] akvzv83q2/FULL STACK ENGINEER+ewAYdgyBe23RIDlG89R+mavzUF9Xxx4sQ6ZZlYrN9bne6q7DNUr4ZtlE7Pw/d39SGO/ [file] eY7Uv8pxnJH5rMeWvQdQfOIuPSng+ObSPgRF4ACMRiRNruRig+Ic Design Engineer/ArR12YqDk/cYwvy5mcLy1/Cn1Ix [file] ID Date Data Source [id number] 10/23/2019 08:55:00 AM EST [facility] ([facility] Name Value Range Interpretation Code Description Data Marylou rce(s) Supporting Document(s) Red Blood Count 3.86 10 4.00-5.40 Below low normal [facility] ([facility] White Blood Count 4.9 10 4.0-10.0 Normal (applies to non-numeri c results) [facility] ([facility] Mean Corpuscular Volume 98.2 fl 80.0-96.0 Above high normal [facility] ([facility] Hemoglobin 13.1 g/dL 12.0-15.5 Normal (applies to non-numeric resul ts) [facility] ([facility] Hematocrit 37.9 % 36.0-47.0 Normal (applies to non-numeric resul ts) [facility] ([facility] Mean Corpuscular HGB Conc 34.6 g/dL 32.0-36.5 Normal (applies to non-numeric results) [facility] ([facility] Mean Corpuscular Hemoglobin 33.9 pg 27.0-33.0 Above high normal [facility] ([facility] Red Cell Distribution Width 13.4 % 11.5-14.5 Norm al (applies to non-numeric results) [facility] ([facility] Platelet Count, Automated 147 10 150-450 Below low normal [facility] ([facility] Neutrophils % 50.4 % 36.0-66.0 Normal (applies to non-numeric re sults) [facility] ([facility] Lymph % 32.2 % 24.0-44.0 Normal (applies to non-numeric resul ts) [facility] ([facility]) [place] % 8.5 % 0.0-5.0 Above high normal [facility] ([facility] Eos % 7.5 % 0.0-3.0 Above high normal [facility] ([facility] Immature Granulocyte % 0.2 % 0-3.0 Normal (applies to non-n umeric results) [facility] ([facility] Baso % 1.2 % 0.0-1.0 Above high normal [facility] ([facility] Nucleated Red Blood Cell % 0.0 % 0-0 Normal (applies to n on-numeric results) [facility] ([facility] Lymph # 1.6 10 1.5-5.0 Normal (applies to non-numeric resul ts) [facility] ([facility] [place] # 0.4 10 0.0-0.8 Normal (applies to non-numeric resul ts) [facility] ([facility] Neutrophils # 2.5 10 1.5-8.5 Normal (applies to non-numeric re sults) [facility] ([facility] Baso # 0.1 10 0.0-0.2 Normal (applies to non-numeric resul ts) [facility] ([facility] Eos # 0.4 10 0.0-0.5 Normal (applies to non-numeric resul ts) [facility] ID Date Data Source [id number] 10/23/2019 08:55:00 AM EST [facility] ([facility] Name Value Range Interpretation Code Description Data Marylou rce(s) Supporting Document(s) Ammonia [Mass/volume] in Blood 24 uMOL/L N ormal (applies to non-numeric results) [facility] ID Date Data Source [id number] 10/23/2019 08:55:00 AM EST [facility] ([facility] Name Value Range Interpretation Code Description Data Marylou rce(s) Supporting Document(s) Glucose, Fasting 103 mg/dL 70-100 Above high normal [facility] ([facility] Glomerular Filtration Rate Laboratory test result Normal (applies to non- numeric results) [facility] ([facility] <content>Units are mL/min/1.73 m2</content>
<content></content>
<content>Chronic Kidney Disease Staging per NKF:</content>
<content></content>
<content>Stage I & II GFR >=60 Normal to Mildly Decreased</content>
<content>Stage III GFR 30- 59 Moderately Decreased</content>
<content>Stage IV GFR 15-29 Severely Decreased</content>
<content>Stage V GFR <15 Very Little GFR Left</content>
<content>ESRD GFR <15 on [employer]</content>
<content></content> Blood Urea Nitrogen 11 mg/dL 7-18 Normal (applies to non-nume jr results) [facility] ([facility]) Creatinine For GFR 0.60 mg/dL 0.55-1.30 Normal (applies to non -numeric results) [facility] ([facility]) Sodium Level 146 meq/L 136-145 Above high normal [facility] ([facility] Potassium Serum 3.7 meq/L 3.5-5.1 Normal (applies to non-numeric results) [facility] ([facility] Anion Gap 4 meq/L 8-16 Below low normal [facility] ( [facility] Carbon Dioxide Level 28 meq/L 21-32 Normal (applies to non-num cruz results) [facility] Chloride Level 114 meq/L 98-107 Above high normal [facility] ([facility]) Calcium Level 8.8 mg/dL 8.8-10.2 Normal (applies to non-numeric re sults) [facility] ([facility]) Alt/SGPT 50 U/L 12-78 Normal (applies to non-numeric resul ts) [facility] Ast/Sgot 39 U/L 7-37 Above high normal [facility] ([facility] Total Protein 6.9 GM/DL 6.4-8.2 Normal (applies to non-numeric re sults) [facility] ([facility]) Bilirubin,Total 0.8 mg/dL 0.2-1.0 Normal (applies to non-numeric results) [facility] ([facility] Alkaline Phosphatase 108 U/L 45-117 Normal (applies to non-num cruz results) [facility] ([facility] Albumin 3.2 GM/DL 3.2-5.2 Normal (applies to non-numeric resul ts) [facility] Albumin/Globulin Ratio 0.86 1.00-1.93 Below low normal [facility] ([facility]) ID Date Data Source [id number] 10/23/2019 08:55:00 AM EST [facility] Name Value Range Interpretation Code Description Data Marylou rce(s) Supporting Document(s) Vitamin B12 Level 1436 pg/mL Normal (applies to non-numeri c results) [facility] ([facility] VITAMIN B12 NORMAL RANGE NORMAL 247 - 911 PG/ML INDETERMINATE 211 - 246 PG/ML DEFICIENT LESS THAN 211 PG/ML Folate Laboratory test result Normal (applies to non-n umeric results) [facility] ([facility] FOLATE NORMAL RANGE NORMAL GREATER THAN 5.4 NG/ML INDETERMINATE 3.4-5.4 NG/ML DEFICIENT LESS THAN 3.4 NG/ML ID Date Data Source [id number] 10/23/2019 08:55:00 AM EST [facility] ([facility]) Name Value Range Interpretation Code Description Data Marylou rce(s) Supporting Document(s) Calcidiol [Mass/volume] in Serum or Plasma 42.7 ng/mL 30.0- 100.0 Normal (applies to non-numeric results) [facility] ([facility] Ferritin [Mass/volume] in Serum or Plasma 35 ng/mL 8-252 Normal (applies to non- numeric results) [facility] ([facility]) ID Date Data Source [id number] 10/23/2019 08:55:00 AM EST [facility] ([facility] [facility]) Name Value Range Interpretation Code Description Data Marylou rce(s) Supporting Document(s) Hematocrit 37.9 % 36.0-47.0 Normal (applies to non-numeric resul ts) [facility] RBC Folate 703 ng/mL 280-791 Normal (applies to non-numeric resul ts) [facility] ID Date Data Source [id number] 09/15/2019 09:50:00 AM [facility] Patient Name: LEROY CALLAHAN : 1955 Sex: F Pt Unit #: [id number] Location:[facility] Provider: Visit Date/Time: 09/15/19 Primary Insurance: [facility] Secondary Insurance: Self Pay Intake Vital Signs [...] Surgical History (Updated 02/15/19 @ 11:53 by Ameibo MS) Biopsy of breast Cholecystectomy History of - [...] rce(s) Supporting Document(s) ID Date Data Source [id number] 09/13/2019 09:22:04 AM [facility] Vital SignsBlood Pressure: 129/69 Patient History Medical History:HypertensionDiabetes - Type IIarthritisAsthmaChronic hepatic encephalopathyBreast cancer survivorFamily History:Diabetes (Mother)Heart disease (Father)Hypertension (Mother)Social/Personal History: Smoking Status: former smokerCurrent Problems: DENTAL CARIES EXTENDING INTO PULP (ICD-521.03) (EVW90-I40.63)Teeth extraction (ICD-525.10) (ZRG00-N33.499)Breast cancer (ICD- 174.9) (NDE27-R94.919)Current Medications: * SEE SCANNED LIST * ANASTROZOLE Past Medical History:(reviewed - no changes required) HypertensionDiabetes - Type IIa rthritisAsthmaChronic hepatic encephalopathyBreast cancer survivor Dental Chart: Procedures:Type - CDT Code - Description B - (D0120) Periodic oral evaluation - established patient (Performed by Vanesa Gutierres DMD) B - (D1110) Prophylaxis, adult (Performed by Torrie Alavrado) Treatments:Type - CDT Code - Description T - (D7140) Extraction, erupted tooth or exposed root (elevation and/or forceps removal) on Tooth # 18 (Performed by Torrie Alvarado) Chart Alert:HISTORYprophy exam scheduled 05/16/2014panorex taken 08/12/2012 Chart Notes:jlam (Sep 13 2019 12:36PM): JOCELYN(-). CC: none. Reviewed Xrays. Exam: no caries detected. OCS: WNL, IO/ EO completed, No significant hard findings upon clinical exam Pt was cooperative.OHI givenReferral: Add #18 to existing referral due to fractureNV:recallTorrie Alvarado by darrell (09/13/2019 12:36 PM): ; ricardo (Sep 13 2019 10:08AM): [facility] with patient. No problems or concerns today. [...] Tooth 7 Note: Chip presnet, within normal limitsWaJennifer ramsey RDH by valeri (02/09/2019 11:12 AM): Assessment & Plan Medications:SEE SCANNED LISTANASTROZOLEMedication Changes:Added: * SEE SCANNED LISTAllergies:No Known Allergies (updated 09/13/2019) Name Value Range Interpretation Code Description Data Marylou rce(s) Supporting Document(s) ID Date Data Source [id number] 09/07/2019 01:44:00 PM EST [facility] ([facility]) Name Value Range Interpretation Code Description Data Marylou rce(s) Supporting Document(s) Prothrombin Time 14.9 s 11.8-14.0 [facility] ([facility]) Partial Thromboplastin Time 36.1 s 25.0-38.4 [facility] ([facility]) Inr 1.20 [facility] ([facility]) THERAPUTIC HUMAN INR VALUES INDICATIONS NORMAL RANGES PROPHYLAXIS/TREATMENT OF: VENOUS THROMBOSIS 2.0-3.0 PULMONARY EMBOLISM 2.0-3.0 PREVENTION OF SYSTEMIC EMBOLISM FROM: TISSUE HEART VALVES 2.0-3.0 ACUTE MYOCARDIAL INFARCTION 2.0-3.0 VALVULAR HEART DISEASE 2.0-3.0 ATRIAL FIBRILLATION 2.0-3.0 MECHANICAL VALVES(HIGH RISK) 2.5-3.5 RECURRENT MYOCARDIAL INFARCTION 2.5-3.5 ID Date Data Source [id number] 09/07/2019 01:44:00 PM EST [facility] ([facility]) Name Value Range Interpretation Code Description Data Marylou rce(s) Supporting Document(s) Platelets [#/volume] in Blood by Automated count 135 10 150-450 [facility] ([facility]) ID Date Data Source [id number] 09/07/2019 01:44:00 PM EST [facility] ([facility] Name Value Range Interpretation Code Description Data Marylou rce(s) Supporting Document(s) Prothrombin Time 14.9 s 11.8-14.0 Above high normal [facility] Inr 1.20 Normal (applies to non-numeric resul ts) [facility] THERAPUTIC HUMAN INR VALUES INDICATIONS NORMAL RANGES PROPHYLAXIS/TREATMENT OF: VENOUS THROMBOSIS 2.0-3.0 PULMONARY EMBOLISM 2.0-3.0 PREVENTION OF SYSTEMIC EMBOLISM FROM: TISSUE HEART VALVES 2.0-3.0 ACUTE MYOCARDIAL INFARCTION 2.0-3.0 VALVULAR HEART DISEASE 2.0-3.0 ATRIAL FIBRILLATION 2.0-3.0 MECHANICAL VALVES(HIGH RISK) 2.5-3.5 RECURRENT MYOCARDIAL INFARCTION 2.5-3.5 Partial Thromboplastin Time 36.1 s 25.0-38.4 Norm al (applies to non-numeric results) [facility] ID Date Data Source [id number] 09/07/2019 01:44:00 PM EST [facility] ([facility] Name Value Range Interpretation Code Description Data Marylou rce(s) Supporting Document(s) Platelets [#/volume] in Blood by Automated count 135 10 150-450 Below low normal [facility] ([facility] ID Date Data Source [id number] 08/24/2019 11:22:00 AM EST [facility] ([facility] Name Value Range Interpretation Code Description Data Marylou rce(s) Supporting Document(s) Thyroid Stimulating Hormone 1.590 uIU/ML 0.358-3.740 Norm al (applies to non- numeric results) [facility] ([facility] Free T4 0.61 ng/dL 0.76-1.46 Below low normal [facility] ( [facility] ID Date Data Source [id number] 08/24/2019 11:22:00 AM EST [facility] ([facility]) Name Value Range Interpretation Code Description Data Marylou rce(s) Supporting Document(s) Estimated Average Glucose 154 mg/dL 60-110 Above high normal [facility] Hemoglobin A1c 7.0 % Normal (applies to non-numeric r esults) [facility] REFERENCE RANGES: 4.5-5.6% NORMAL 5.7-6.4% SUGGESTS IMPAIRED GLUCOSE META BOLISM >= 6.5% ABNORMAL ID Date Data Source [id number] 08/24/2019 11:22:00 AM EST [facility] ([facility] Name Value Range Interpretation Code Description Data Marylou rce(s) Supporting Document(s) White Blood Count 5.4 10 4.0-10.0 Normal (applies to non-numeri c results) [facility] ([facility] Hemoglobin 13.1 g/dL 12.0-15.5 Normal (applies to non-numeric resul ts) [facility] ([facility] Red Blood Count 4.04 10 4.00-5.40 Normal (applies to non-numeric results) [facility] ([facility] Hematocrit 39.5 % 36.0-47.0 Normal (applies to non-numeric resul ts) [facility] ([facility] Mean Corpuscular Hemoglobin 32.4 pg 27.0-33.0 Norm al (applies to non-numeric results) [facility] ([facility] Mean Corpuscular Volume 97.8 fl 80.0-96.0 Above high normal [facility] ([facility] Platelet Count, Automated 129 10 150-450 Below low normal [facility] ([facility] Mean Corpuscular HGB Conc 33.2 g/dL 32.0-36.5 Normal (applies to non-numeric results) [facility] ([facility] Red Cell Distribution Width 14.0 % 11.5-14.5 Norm al (applies to non-numeric results) [facility] ([facility] Lymph % 30.5 % 24.0-44.0 Normal (applies to non-numeric resul ts) [facility] ([facility] Neutrophils % 51.1 % 36.0-66.0 Normal (applies to non-numeric re sults) [facility] ([facility] Baso % 0.7 % 0.0-1.0 Normal (applies to non-numeric resul ts) [facility] ([facility] [place] % 8.2 % 0.0-5.0 Above high normal [facility] ([facility] Eos % 9.3 % 0.0-3.0 Above high normal [facility] ([facility] Immature Granulocyte % 0.2 % 0-3.0 Normal (applies to non-n umeric results) [facility] ([facility] Nucleated Red Blood Cell % 0.0 % 0-0 Normal (applies to n on-numeric results) [facility] ([facility] Neutrophils # 2.7 10 1.5-8.5 Normal (applies to non-numeric re sults) [facility] ([facility] Lymph # 1.6 10 1.5-5.0 Normal (applies to non-numeric resul ts) [facility] ([facility] [place] # 0.4 10 0.0-0.8 Normal (applies to non-numeric resul ts) [facility] ([facility] Eos # 0.5 10 0.0-0.5 Normal (applies to non-numeric resul ts) [facility] ([facility] Baso # 0.0 10 0.0-0.2 Normal (applies to non-numeric resul ts) [facility] ([facility] ID Date Data Source [id number] 08/24/2019 11:22:00 AM EST [facility] ([facility] Name Value Range Interpretation Code Description Data Marylou rce(s) Supporting Document(s) Glucose, Fasting 158 mg/dL 70-100 Above high normal M [facility] ([facility] Creatinine For GFR 0.61 mg/dL 0.55-1.30 Normal (applies to non -numeric results) [facility] Blood Urea Nitrogen 10 mg/dL 7-18 Normal (applies to non-nume jr results) [facility] ([facility] Glomerular Filtration Rate Laboratory test result Normal (applies to non- numeric results) [facility] ([facility] <content>Units are mL/min/1.73 m2</content>
<content></content>
<content>Chronic Kidney Disease Staging per NKF:</content>
<content></content>
<content>Stage I & II GFR >=60 Normal to Mildly Decreased</content>
<content>Stage III GFR 30- 59 Moderately Decreased</content>
<content>Stage IV GFR 15-29 Severely Decreased</content>
<content>Stage V GFR <15 Very Little GFR Left</content>
<content>ESRD GFR <15 on [employer]</content>
<content></content> Sodium Level 144 meq/L 136-145 Normal (applies to non-numeric res ults) [facility] ([facility] Potassium Serum 3.9 meq/L 3.5-5.1 Normal (applies to non-numeric results) [facility] ([facility] Chloride Level 109 meq/L 98-107 Above high normal [facility] ([facility] Carbon Dioxide Level 30 meq/L 21-32 Normal (applies to non-num cruz results) [facility] ([facility] Ast/Sgot 51 U/L 7-37 Above high normal [facility] ([facility] Anion Gap 5 meq/L 8-16 Below low normal [facility] Calcium Level 8.6 mg/dL 8.8-10.2 Below low normal [facility] ([facility] Bilirubin,Total 0.7 mg/dL 0.2-1.0 Normal (applies to non-numeric results) [facility] ([facility] Alkaline Phosphatase 130 U/L 45-117 Above high normal [facility] ([facility] Alt/SGPT 56 U/L 12-78 Normal (applies to non-numeric resul ts) [facility] ([facility] Albumin 3.2 GM/DL 3.2-5.2 Normal (applies to non-numeric resul ts) [facility] ([facility] Albumin/Globulin Ratio 0.74 1.00-1.93 Below low normal [facility] ([facility] Total Protein 7.5 GM/DL 6.4-8.2 Normal (applies to non-numeric re sults) [facility] ([facility] ID Date Data Source [id number] 08/24/2019 11:22:00 AM EST [facility] ([facility] Name Value Range Interpretation Code Description Data Marylou rce(s) Supporting Document(s) Ammonia [Mass/volume] in Blood 65 uMOL/L Above high zari l [facility] ([facility] Procedure Social History Code Duration Value Status Description Data Source(s ) Smoking 10/10/2020 12:00:00 AM EST Former Smoker completed Former Smoker eCW1 ([facility]) Smoking 10/01/2020 12:00:00 AM EST Patient is a former smoker completed Patient is a former smoker [facility] Smoking 09/19/2020 12:00:00 AM EST Former Smoker completed Former Smoker eCW1 ([facility]) Smoking 09/19/2020 12:00:00 AM EST Former Smoker completed Former Smoker eCW1 ([facility]) Smoking 09/19/2020 12:00:00 AM EST Former Smoker completed Former Smoker eCW1 ([facility]) Smoking 09/06/2020 12:00:00 AM EST Former Smoker completed Former Smoker eCW1 ([facility]) Smoking 09/06/2020 12:00:00 AM EST Former Smoker completed Former Smoker eCW1 ([facility]) Smoking 08/20/2020 12:00:00 AM EST Former Smoker completed Former Smoker eCW1 ([facility]) Alcohol intake 08/03/2020 12:00:00 AM EST Yes completed [facility] Smoking 08/03/2020 12:00:00 AM EST Former smoker completed Former smoker [facility] Alcohol intake 03/09/2020 12:00:00 AM EDT Current drinker of al cohol (finding) completed Current drinker of alcohol (finding) [facility] Smoking 03/09/2020 12:00:00 AM EDT Former smoker completed Former smoker [facility] Vital Signs ID Date Data Source [id number] Name Value Range Interpretation Code Description Data Source(s) Diastolic blood pressure 74 mm[Hg] 74 mm[Hg] eCW1 ([facility]) Systolic blood pressure 122 mm[Hg] 122 mm[Hg] e CW1 ([facility]) Body mass index (BMI) [Ratio] 31.28 kg/m2 31.28 kg/m2 W1 ([facility]) Body height 70 [in_i] 70 [in_i] W1 ([facility]) Body weight 218.0 [lb_av] 218.0 [lb_av] W1 ([facility]) [place] body weight 130 [lb_av] 130 [lb_av] [facility] ([facility] Oxygen saturation in Arterial blood by Pulse oximetry 94 % 94 % [facility] ([facility] Body temperature 97.4 [degF] 97.4 [degF] [facility] Respiratory rate 18 /min 18 /min [facility] ( [facility] Heart rate 84 /min 84 /min [facility] ([facility] Body mass index (BMI) [Ratio] 34.8 kg/m2 34.8 k g/m2 [facility] Body weight 218.00 [lb_av] 218.00 [lb_av] [facility] ([facility] Systolic blood pressure 142 mm[Hg] 142 mm[Hg] [facility] ([facility] Body height 66.4 [in_i] 66.4 [in_i] [facility] ([facility]) 5'6.40" Diastolic blood pressure 74 mm[Hg] 74 mm[Hg] [facility] ([facility] Diastolic blood pressure 70 mm[Hg] 70 mm[Hg] eCW1 ([facility]) Systolic blood pressure 128 mm[Hg] 128 mm[Hg] e CW1 ([facility]) Respiratory rate 18 /min 18 /min eCW1 ([facility]) Heart rate 64 /min 64 /min eCW1 ([facility]) Body mass index (BMI) [Ratio] 31.13 kg/m2 31.13 kg/m2 eCW1 ([facility]) Body height 70 [in_i] 70 [in_i] eCW1 ([facility]) Body weight 217 [lb_av] 217 [lb_av] eCW1 ([facility]) Diastolic blood pressure 78 mm[Hg] 78 mm[Hg] eCW1 ([facility]) Systolic blood pressure 126 mm[Hg] 126 mm[Hg] e CW1 ([facility]) Respiratory rate 18 /min 18 /min eCW1 ([facility]) Heart rate 63 /min 63 /min eCW1 ([facility]) Body mass index (BMI) [Ratio] 30.85 kg/m2 30.85 kg/m2 eCW1 ([facility]) Body height 70 [in_i] 70 [in_i] eCW1 ([facility]) Body weight 215 [lb_av] 215 [lb_av] eCW1 ([facility]) Diastolic blood pressure 68 mm[Hg] 68 mm[Hg] eCW1 ([facility]) Systolic blood pressure 116 mm[Hg] 116 mm[Hg] e CW1 ([facility]) Body temperature [degF] eCW1 ([facility]) Respiratory rate 18 /min 18 /min eCW1 ([facility]) Heart rate 86 /min 86 /min eCW1 ([facility]) Body mass index (BMI) [Ratio] 30.90 kg/m2 30.90 kg/m2 eCW1 ([facility]) Body height 70 [in_i] 70 [in_i] eCW1 ([facility]) Body weight 215.4 [lb_av] 215.4 [lb_av] eCW1 ([facility]) Oxygen saturation in Arterial blood by Pulse oximetry 98 % 98 % [facility] Body mass index (BMI) [Ratio] 31.75 kg/m2 31.75 kg/m2 [facility] Body weight 97.523 kg 97.523 kg [facility] Body height 175.3 cm 175.3 cm [facility] Heart rate 72 /min 72 /min [facility] Diastolic blood pressure 60 mm[Hg] 60 mm[Hg] [facility] Systolic blood pressure 128 mm[Hg] 128 mm[Hg] [facility] [place] body weight 130 [lb_av] 130 [lb_av] [facility] ([facility] Oxygen saturation in Arterial blood by Pulse oximetry 96 % 96 % [facility] ([facility] Body temperature 97.1 [degF] 97.1 [degF] [facility] ([facility] Respiratory rate 18 /min 18 /min [facility] Heart rate 75 /min 75 /min [facility] ([facility] Body mass index (BMI) [Ratio] 34.4 kg/m2 34.4 k g/m2 [facility] ([facility] Body weight 215.50 [lb_av] 215.50 [lb_av] [facility] ([facility] Body height 66.4 [in_i] 66.4 [in_i] [facility] ([facility]) 5'6.40" Diastolic blood pressure 72 mm[Hg] 72 mm[Hg] [facility] ([facility] Systolic blood pressure 136 mm[Hg] 136 mm[Hg] [facility] ([facility] Body temperature 97.1 [degF] 97.1 [degF] [facility] ([facility] ) [place] body weight 130 [lb_av] 130 [lb_av] [facility] ([facility] Oxygen saturation in Arterial blood by Pulse oximetry 97 % 97 % [facility] ([facility] Body temperature 97.4 [degF] 97.4 [degF] [facility] ([facility] Respiratory rate 18 /min 18 /min [facility] ( [facility] Heart rate 61 /min 61 /min [facility] ([facility] Body mass index (BMI) [Ratio] 35.0 kg/m2 35.0 k g/m2 [facility] ([facility] Body weight 219.50 [lb_av] 219.50 [lb_av] [facility] ([facility] Body height 66.4 [in_i] 66.4 [in_i] [facility] ([facility]) 5'6.40" Diastolic blood pressure 74 mm[Hg] 74 mm[Hg] [facility] ([facility] Systolic blood pressure 126 mm[Hg] 126 mm[Hg] [facility] ([facility] Body temperature 97.1 [degF] 97.1 [degF] [facility] ([facility] Body weight 100.246 kg 100.246 kg [facility] ([facility] ) [place] body weight 140 [lb_av] 140 [lb_av] [facility] ([facility], ) Body mass index (BMI) [Ratio] 33.1 kg/m2 33.1 k g/m2 [facility] ) Body weight 221.00 [lb_av] 221.00 [lb_av] [facility] ([facility], ) Body height 68.5 [in_i] 68.5 [in_i] [facility], ) 5'8.50" Oxygen saturation in Arterial blood by Pulse oximetry 98 % 98 % [facility] ([facility], ) Heart rate 71 /min 71 /min [facility] ([facility], ) Diastolic blood pressure 62 mm[Hg] 62 mm[Hg] [facility] ([facility], ) Systolic blood pressure 128 mm[Hg] 128 mm[Hg] [facility] [place] body weight 130 [lb_av] 130 [lb_av] [facility] ([facility] Oxygen saturation in Arterial blood by Pulse oximetry 98 % 98 % [facility] ([facility] Body temperature 97.2 [degF] 97.2 [degF] [facility] Respiratory rate 16 /min 16 /min [facility] ( [facility] Heart rate 65 /min 65 /min [facility] Body mass index (BMI) [Ratio] 35.3 kg/m2 35.3 k g/m2 [facility] Body weight 221.12 [lb_av] 221.12 [lb_av] [facility] ([facility] Body height 66.4 [in_i] 66.4 [in_i] [facility]) 5'6.40" Diastolic blood pressure 78 mm[Hg] 78 mm[Hg] [facility] ([facility] Systolic blood pressure 128 mm[Hg] 128 mm[Hg] [facility] [place] body weight 130 [lb_av] 130 [lb_av] [facility] ([facility] Oxygen saturation in Arterial blood by Pulse oximetry 98 % 98 % [facility] ([facility] Body temperature 97.6 [degF] 97.6 [degF] [facility] ([facility] Respiratory rate 16 /min 16 /min [facility] Heart rate 63 /min 63 /min [facility] Body mass index (BMI) [Ratio] 33.7 kg/m2 33.7 k g/m2 [facility] ([facility] Body weight 211.12 [lb_av] 211.12 [lb_av] [facility] ([facility] Body height 66.4 [in_i] 66.4 [in_i] [facility] ([facility]) 5'6.40" Diastolic blood pressure 74 mm[Hg] 74 mm[Hg] [facility] ([facility] Systolic blood pressure 122 mm[Hg] 122 mm[Hg] M [facility] ([facility] Body mass index (BMI) [Ratio] 32.4 kg/m2 32.4 k g/m2 [facility] ([facility]) Body weight 213.00 [lb_av] 213.00 [lb_av] [facility] ([facility]) Body height 68 [in_i] 68 [in_i] [facility] ([facility]) 5'8" Body temperature 96.8 [degF] 96.8 [degF] [facility] ([facility]) Oxygen saturation in Arterial blood by Pulse oximetry 99 % 99 % [facility] ([facility] Body temperature 96.9 [degF] 96.9 [degF] [facility] ([facility] Respiratory rate 18 /min 18 /min [facility] ( [facility] Heart rate 68 /min 68 /min [facility] ([facility] Body mass index (BMI) [Ratio] 34.0 kg/m2 34.0 k g/m2 [facility] ([facility] Body weight 213.25 [lb_av] 213.25 [lb_av] [facility] ([facility] Body height 66.4 [in_i] 66.4 [in_i] [facility] ([facility]) 5'6.40" Diastolic blood pressure 76 mm[Hg] 76 mm[Hg] [facility] ([facility] Systolic blood pressure 124 mm[Hg] 124 mm[Hg] M [facility] ([facility] Oxygen saturation in Arterial blood by Pulse oximetry 97 % 97 % [facility] ([facility] Body temperature 97.0 [degF] 97.0 [degF] [facility] ([facility] Respiratory rate 18 /min 18 /min [facility] ( [facility] Heart rate 60 /min 60 /min [facility] ([facility] Body mass index (BMI) [Ratio] 33.0 kg/m2 33.0 k g/m2 [facility] ([facility] Body weight 207.25 [lb_av] 207.25 [lb_av] [facility] ([facility] Body height 66.4 [in_i] 66.4 [in_i] MEDENT ([facility]) 5'6.40" Diastolic blood pressure 72 mm[Hg] 72 mm[Hg] MEDENT ([facility]) Systolic blood pressure 134 mm[Hg] 134 mm[Hg] M EDENT ([facility]) Body mass index (BMI) [Ratio] 31.0 kg/m2 [...] Systolic blood pressure 106 mm[Hg] 106 mm[Hg] EDENT ([facility] Oxygen saturation in Arterial blood by Pulse oximetry 98 % 98 % MEDENT ([facility] Body temperature 97.1 [degF] 97.1 [degF] MEDENT ([facility] Respiratory rate 20 /min 20 /min MEDENT ( [facility] Heart rate 71 /min 71 /min MEDENT ([facility] Body mass index (BMI) [Ratio] 33.8 kg/m2 33.8 k g/m2 MEDENT ([facility] Body weight 211.75 [lb_av] 211.75 [lb_av] MEDEN T ([facility] Body height 66.4 [in_i] 66.4 [in_i] MEDENT ([facility]) 5'6.40" Diastolic blood pressure 62 mm[Hg] 62 mm[Hg] MEDENT ([facility] Systolic blood pressure 110 mm[Hg] 110 mm[Hg] M EDENT ([facility] Body mass index (BMI) [Ratio] 31.0 kg/m2 [...] [facility] Diastolic blood pressure 82 mm[Hg] 82 mm[Hg] MEDENT ([facility] Systolic blood pressure 122 mm[Hg] 122 mm[Hg] [facility] Oxygen saturation in Arterial blood by Pulse oximetry 99 % 99 % MEDENT ([facility] Body temperature 98.6 [degF] 98.6 [degF] MEDENT ([facility] Respiratory rate 20 /min 20 /min MEDENT ( [facility] Heart rate 67 /min 67 /min MEDENT ([facility] Body mass index (BMI) [Ratio] 32.9 kg/m2 32.9 k g/m2 MEDENT ([facility] Body weight 206.50 [lb_av] 206.50 [lb_av] MEDEN T ([facility] Body height 66.4 [in_i] 66.4 [in_i] MEDENT ([facility]) 5'6.40" Diastolic blood pressure 62 mm[Hg] 62 mm[Hg] MEDENT ([facility] Systolic blood pressure 116 mm[Hg] 116 mm[Hg] M EDENT ([facility]) ID Date Data Source [id number] 03/09/2020 10:49:40 AM EDT [facility] Name Value Range Interpretation Code Description Data Source(s) WEIGHT RECORDED 200 lb 200 lb [facility] Body height Measured [address] [facility] ID Date Data Source [id number] 02/17/2020 02:59:09 PM EDT [facility] Name Value Range Interpretation Code Description Data Source(s) WEIGHT RECORDED 245 lb 245 lb [facility] Body height Measured [address] [facility] Patient Treatment Plan of Care Planned Activity Planned Date Details Description Data Source (s) Hydroxyzine Hydrochloride 10 MG Oral Tablet 10/10/2020 12:00:00 AM EST eCW1 ([facility]) Fluocinonide 0.5 MG/ML Topical Solution 10/10/2020 12:00:00 AM EST [facility] ([facility]) Miconazole Nitrate 0.0025 MG/MG / Petrol atum 0.814 MG/MG / Zinc Oxide 0.15 MG/MG Topical Ointment [Vusion] 10/10/2020 12:00:00 AM EST eCW1 ([facility]) Acetaminophen 325 MG / Oxycodone Hydrochloride 5 MG Or al Tablet [Percocet] 09/27/2020 12:00:00 AM EST eCW1 ([facility]) Acetaminophen 325 MG / Oxycodone Hydrochloride 5 MG Or al Tablet [Percocet] 09/27/2020 12:00:00 AM EST eCW1 ([facility]) 24 HR Propranolol Hydrochloride 60 MG Extended Release Oral Capsule 08/03/2020 12:00:00 AM EST [facility] 24 HR Propranolol Hydrochloride 60 MG Extended Release Oral Capsule 02/27/2020 12:00:00 AM EDT [facility] gabapentin 400 MG Oral Capsule 08/02/2019 12:00:00 AM EST [facility] Ranitidine 150 MG Oral Tablet 07/24/2019 12:00:00 AM EST [facility] Furosemide 20 MG Oral Tablet 08/05/2018 12:00:00 AM EST [facility] Acetaminophen 325 MG Oral Tablet 2018 12:00:00 AM EDT [facility] Aspirin 81 MG Oral Tablet [facility] 24 HR tolterodine tartrate 4 MG Extended Release Oral Capsule [facility]
[2020-10-18] MEDS ORDERED: MIDAZOLAM INJ 2MG/2ML VIAL (J2250 PER 1MG) As Ordered ONE (08:55)
[2020-10-18] MEDS ORDERED: fentaNYL 100 MCG/2 ML INJECTION (J3010) As Ordered ONE (08:56)
[2020-10-18] MEDS ORDERED: OXYC1TAB23 PO (10:16)
[2020-10-18] MEDS ORDERED: FLOM0.4C39 PO (10:16)
--- NOTE | 2020-10-18 11:06 | REP ---
INDICATION: KIDNEY STONE- KUB PRIOR TO SDC. COMPARISON: Comparison study May 18, 2019.. TECHNIQUE: Two views. KUB. FINDINGS: There are surgical clips in right upper quadrant. A double pigtail left ureteral stent is noted in place. There are sutures in the left upper quadrant and left mid abdomen. There is a 2 cm calculus adjacent to the stent in the region of the renal pelvis on the left. There is a 0.6 cm calcific density projecting at the level of the lower pole on the right. There are phleboliths in the pelvis. IMPRESSION: Bilateral intrarenal nephrolithiasis. Left ureteral stent. <Electronically signed by Casimiro Jett > 10/18/20 [id number]
[2020-10-18] MEDS ORDERED: PERCOCET 5MG/325MG TAB PO PRN ×2 (11:25→12:30)
[2020-10-18] MEDS ORDERED: LR 1,000 ML IV SCH (11:25)
[2020-10-18] MEDS ORDERED: ONDANSETRON 4MG/2ML VIAL IV PRN (11:25)
[2020-10-18 11:45] VITALS: BP 131/60
--- NOTE | 2020-10-18 12:53 | RO ---
OPERATIVE NOTE DATE OF OPERATION: 10/18/2020 PREOPERATIVE DIAGNOSIS: Left kidney stone. POSTOPERATIVE DIAGNOSIS: Left kidney stone. PROCEDURE: Left extracorporal shock wave lithotripsy. SURGEON: Varun Mcduffie MD. ASSEMBLY CLEANER: None. ANESTHESIA: MAC. INDICATIONS FOR PROCEDURE: This is a 65-year-old female who was found to have an approximately 1.3 cm left ureteropelvic junction stone on recent CT scan. She had a stent placed a few weeks ago. She is brought to the operating room today for treatment of the stone. DESCRIPTION OF PROCEDURE: The patient was brought to the operating room and MAC anesthesia was administered. Prophylactic antibiotic were infused. She was placed in the supine position in preparation for a left-sided extracorporal shock wave lithotripsy. Fluoroscopy was utilized to monitor stone position and fragmentation throughout the procedure. Shock waves were then delivered to the left-sided kidney stone ungated. There were no arrhythmias. The stone did appear to fragment well. After 2500 shocks, the procedure was concluded. The patient was then awakened from anesthesia and transported to the recovery room in stable condition. ESTIMATED BLOOD LOSS: 0 mL. COMPLICATIONS: None. SPECIMENS: None. PLAN: The patient will follow-up with the urology clinic in a few weeks with imaging prior to assess for residual stone burden. Assuming the majority of the stone is passed, we will take her stent out at that time.
== END 2020-10-18 12:40 | disposition home or self-care (01) ==
LOC: M SDC 08:35
PROVIDERS: ATTEND Urology
DX: N20.0 Calculus of kidney (principal); D64.9 Anemia, unspecified; D69.6 Thrombocytopenia, unspecified; E11.40 Type 2 diabetes mellitus with diabetic neuropathy, unspecified; G89.29 Other chronic pain; G47.33 Obstructive sleep apnea (adult) (pediatric); I10 Essential (primary) hypertension; J45.909 Unspecified asthma, uncomplicated; K21.9 Gastro-esophageal reflux disease without esophagitis; K74.60 Unspecified cirrhosis of liver; M12.9 Arthropathy, unspecified; M54.5 Low back pain; R21 Rash and other nonspecific skin eruption; R51.9 Headache, unspecified; Z78.0 Asymptomatic menopausal state; Z79.899 Other long term (current) drug therapy; Z85.3 Personal history of malignant neoplasm of breast; Z88.8 Allergy status to other drugs, medicaments and biological substances; Z92.21 Personal history of antineoplastic chemotherapy; Z92.3 Personal history of irradiation; Z98.84 Bariatric surgery status
CPT/HCPCS: 50590; 74018; J0690; J2250; J3010

== ENCOUNTER → 2020-11-12 | Outpatient (CLI) | payer OTHER ==
[~2020-11-12] MED LIST changes: +ASPI-569 PO; -ASPI81TAEC PO; +FLOM0.4C39 PO; -LIDOCAINE 1% MDV 20ML VIAL SQ PRN; -LIDOCAINE 2% 100MG/5ML SDV (FOR ANES.) As Ordered ONE; -LR 1,000 ML IV ONE; -ceFAZolin SOD 2 GM in IV 1 EA IV ONE; -propofoL 200 MG/20 ML VIAL As Ordered ONE
--- NOTE | 2020-11-12 17:19 | REP ---
INDICATION: CALCULUS OF KIDNEY. COMPARISON: 10/18/2020. TECHNIQUE: Single AP view of the abdomen. FINDINGS: There is a left ureteral stent with the proximal and distal pigtails in satisfactory positions, unchanged. The calcification projected over the left kidney previously is no longer identified. The small calcification projected over the right renal lower pole previously is no longer identified. There is a small ovoid density projected over the cecum today, possibly ingested bowel content. Indicate there is a calcification projected over the distal pigtail in the pelvis, unchanged. The bowel gas pattern is normal. There is multilevel degenerative disc disease throughout the lumbar spine, unchanged. IMPRESSION: Left ureteral stent as described. <Electronically signed by Donnell Pinzon > 11/12/20 [id number]
== END ==
LOC: M RAD 15:14
PROVIDERS: ATTEND Urology
DX: N20.0 Calculus of kidney (principal)

== ENCOUNTER → 2020-11-13 | Outpatient (REF) | payer OTHER | LOC: M SMT 12:37 | PROVIDERS: ATTEND Urology | DX: N20.0 Calculus of kidney (principal) ==

== ENCOUNTER → 2020-11-26 | Outpatient (CLI) | payer OTHER ==
--- NOTE | 2020-11-26 10:12 | REP ---
INDICATION: UNSPECIFIED CIRRHOSIS OF LIVER COMPARISON: 02/28/2020 TECHNIQUE: Real time bates scale ultrasound examination using curved array transducer. FINDINGS: Liver demonstrates diffusely coarse echotexture with mild hepatomegaly/Reidel's lobe. No focal hepatic lesions are identified. Liver measures roughly 19 cm in craniocaudal length. The pancreas is unremarkable. Patient is noted to be status post cholecystectomy. No biliary ductal dilatation is appreciated and the common bile duct measures 6.4 mm diameter. Right kidney is normal in reniform shape in appearance without hydronephrosis and measures 12.4 x 6.3 x 6.4 cm. No ascites. IMPRESSION: Coarsened hepatic echotexture and mild hepatomegaly consistent with cirrhosis. No focal hepatic lesion identified. <Electronically signed by Isak Toussaint > 11/26/20 [id number]
[2020-11-26 11:05] LABS: HEMATOCRIT 40.5 % (36.0-47.0); MEAN CORPUSCULAR HEMOGLOBIN 33.3 pg (27.0-33.0); MEAN CORPUSCULAR HGB CONC 34.6 g/dl (32.0-36.5); MEAN CORPUSCULAR VOLUME 96.4 fl (80.0-96.0); PLATELET COUNT, AUTOMATED 181 10^3/uL (150-450); WHITE BLOOD COUNT 5.3 10^3/uL (4.0-10.0)
[2020-11-26 11:14] LABS: INR 1.09; PROTHROMBIN TIME 14.4 SECONDS (12.5-14.3)
[2020-11-26 11:31] LABS: ALBUMIN 3.4 GM/DL (3.2-5.2); ALT/SGPT 37 U/L (12-78); BILIRUBIN,TOTAL 0.8 MG/DL (0.2-1.0); BLOOD UREA NITROGEN 12 MG/DL (7-18); CALCIUM LEVEL 9.1 MG/DL (8.8-10.2); CARBON DIOXIDE LEVEL 28 MEQ/L (21-32); CHLORIDE LEVEL 107 MEQ/L (98-107); CREATININE FOR GFR 0.73 MG/DL (0.55-1.30); GLOMERULAR FILTRATION RATE > 60.0 (>45); GLUCOSE, FASTING 213 MG/DL (70-100); POTASSIUM SERUM 4.4 MEQ/L (3.5-5.1); SODIUM LEVEL 142 MEQ/L (136-145); TOTAL PROTEIN 7.6 GM/DL (6.4-8.2)
== END ==
LOC: M RAD 09:08
PROVIDERS: ATTEND Physician Assistant
DX: K74.60 Unspecified cirrhosis of liver (principal)

== ENCOUNTER → 2021-01-23 | Outpatient (CLI) | payer MEDICARE, OTHER ==
[~2021-01-23] MED LIST changes: +GABA-283 PO; -GABA-845 PO
[2021-01-23 09:57] LABS: BASO # 0.1 10^3/uL (0.0-0.2); BASO % 1.1 % (0.0-1.0); EOS # 0.6 10^3/uL (0.0-0.5); EOS % 10.1 % (0.0-3.0); HEMATOCRIT 40.5 % (36.0-47.0); HEMOGLOBIN 13.7 g/dl (12.0-15.5); LYMPH # 1.6 10^3/uL (1.5-5.0); LYMPH % 25.2 % (24.0-44.0); MEAN CORPUSCULAR HEMOGLOBIN 32.6 pg (27.0-33.0); MEAN CORPUSCULAR HGB CONC 33.8 g/dl (32.0-36.5); MEAN CORPUSCULAR VOLUME 96.4 fl (80.0-96.0); MONO # 0.5 10^3/uL (0.0-0.8); MONO % 8.3 % (2.0-8.0); NEUTROPHILS # 3.4 10^3/uL (1.5-8.5); NEUTROPHILS % 55.1 % (36.0-66.0); PLATELET COUNT, AUTOMATED 183 10^3/uL (150-450); WHITE BLOOD COUNT 6.2 10^3/uL (4.0-10.0)
[2021-01-23 10:33] LABS: ALBUMIN 3.4 GM/DL (3.2-5.2); ALT/SGPT 43 U/L (12-78); BILIRUBIN,TOTAL 0.9 MG/DL (0.2-1.0); BLOOD UREA NITROGEN 12 MG/DL (7-18); CALCIUM LEVEL 9.2 MG/DL (8.8-10.2); CARBON DIOXIDE LEVEL 27 MEQ/L (21-32); CHLORIDE LEVEL 112 MEQ/L (98-107); CHOLESTEROL LEVEL 129 MG/DL (<200); CHOLESTEROL RISK RATIO 2.224 (<5); CREATININE FOR GFR 0.72 MG/DL (0.55-1.30); FERRITIN 44 NG/ML (8-252); FREE T4 0.75 NG/DL (0.76-1.46); GLOMERULAR FILTRATION RATE > 60.0 (>45); GLUCOSE, FASTING 166 MG/DL (70-100); HDL CHOLESTEROL 58 MG/DL (>40); IRON (FE) 237 UG/DL (50-170); LDL CHOLESTEROL 56 MG/DL (<100); NON-HDL-C 71 MG/DL; PERCENT SATURATION 76.5 % (13.2-45.0); POTASSIUM SERUM 4.4 MEQ/L (3.5-5.1); SODIUM LEVEL 144 MEQ/L (136-145); TOTAL IRON BINDING CAPACITY 310 UG/DL (250-450); TOTAL PROTEIN 7.5 GM/DL (6.4-8.2); TRIGLYCERIDES LEVEL 73 MG/DL (<150)
[2021-01-23 10:35] LABS: TOTAL 25(OH) VITAMIN D 38.5 NG/ML (30.0-100.0); VITAMIN B12 LEVEL > 2000 PG/ML
[2021-01-23 10:49] LABS: FOLATE > 24.0 NG/ML
[2021-01-23 10:50] LABS: HEMOGLOBIN A1c 7.5 %
== END ==
LOC: M LAB 09:06
PROVIDERS: ATTEND Physician Assistant
DX: Z00.00 Encounter for general adult medical examination without abnormal findings (principal); E11.9 Type 2 diabetes mellitus without complications; E66.8 Other obesity; K72.90 Hepatic failure, unspecified without coma; Z98.84 Bariatric surgery status

== ENCOUNTER → 2021-03-08 | Outpatient (CLI) | payer MEDICARE, OTHER ==
--- NOTE | 2021-03-08 13:59 | REPMRS ---
Patient History The patient states she had a clinical breast exam in January 2021. Patient is postmenopausal and has history of cancer in the left breast at age 58. Family history of colorectal cancer at age 50 or over in father. Malignant radio exam breast specimen of the left breast, May 09, 2014. Malignant stereotatic loc for ea lesion of the left breast, May 09, 2014. Radiation therapy of the left breast, 2013. Patient states no breast complaints today. Patient has signed MRS History Sheet. Digital Woman Screen Mammo: March 08, 2021 - Exam #: [id number] Bilateral CC and MLO view(s) were taken. Technologist: Yessi Branch, Technologist Prior study comparison: February 17, 2020, bilateral digital woman screen mammo performed at [facility]. February 16, 2019, bilateral digital mammo screening bilat, performed at [facility]. FINDINGS: The breast tissue is heterogeneously dense. This may lower the sensitivity of mammography. Screening. This patient?s lifetime risk for the development of invasive breast cancer can?t be calculated due to her age (less than 20 or greater than 85 years) or a prior history of in situ or invasive breast cancer. Digital screening (2D) mammography was performed bilaterally. Additionally, breast tomosynthesis (3D mammography) was performed bilaterally in the CC and MLO projections. Today's exam was compared to the prior exam/exams. By history, the patient has no complaints of a palpable breast abnormality or other significant breast complaints. The patient is status post lumpectomy/chemo radiation therapy due to breast carcinoma. The breasts are unchanged in size and shape. There are no sarah-areas of internal architectural distortion. There are no sarah-soft tissue densities or areas of spiculation. There is unchanged post radiation skin thickening. Once again, stable benign appearing calcifications are seen. IMPRESSION: BI-RADS Category 2- Benign Findings. There is no evidence of malignant alteration of the breasts. Routine bilateral screening mammogram recommended at its regularly scheduled annual interval. The Volpara volumetric breast density category is C, the breasts are heterogenously dense which may obscure small masses. This mammogram was read with the assistance of Vyyo,an FDA approved computer aided detection system for mammography. Due to the density of the breasts or Tyrer Cuzick score of 20% or greater, MRI/whole breast screening ultrasound is warranted. Negative x-ray reports should not delay surgical consultation if a dominant or clinically suspicious mass is present. Not all breast cancers can be identified by mammography. Therefore, we recommend that you continue to perform regular breast self-examination and physical examination and then promptly contact your physician of any concerns or changes. Adenosis and dense breasts may obscure an underlying neoplasm. Assessment: BI-RADS/ACR category 2 mammogram. Benign Findings. Recommendation Routine screening mammogram of both breasts in 1 year. Electronically Signed By: Dionisio Coulter DO 03/08/21 [id number]
== END ==
LOC: M WHC 10:34
PROVIDERS: ATTEND Family Medicine
DX: Z12.31 Encounter for screening mammogram for malignant neoplasm of breast (principal); Z78.0 Asymptomatic menopausal state; Z85.3 Personal history of malignant neoplasm of breast; Z80.0 Family history of malignant neoplasm of digestive organs; Z92.3 Personal history of irradiation; R92.1 Mammographic calcification found on diagnostic imaging of breast

== ENCOUNTER → 2021-03-14 | Outpatient (CLI) | payer MEDICARE, OTHER ==
--- NOTE | 2021-03-14 15:52 | REP ---
INDICATION: WHOLE BREAST U/S/DENSE BREAST. Patient has a personal history of left breast carcinoma in 2014 post radiation therapy. COMPARISON: Comparison is made with a recent mammography March 08, 2021.. TECHNIQUE: Bilateral whole breast screening sonography. FINDINGS: Heterogeneous fibroglandular background echotexture is observed bilaterally. No cyst, mass, focal acoustic shadowing, or architectural distortion is seen by ultrasound in either breast. IMPRESSION: BI-RADS category 1-findings. <Electronically signed by Casimiro Jett > 03/14/21 [id number]
== END ==
LOC: M WHC 14:39
PROVIDERS: ATTEND Family Medicine
DX: R92.8 Other abnormal and inconclusive findings on diagnostic imaging of breast (principal); Z85.3 Personal history of malignant neoplasm of breast; Z92.3 Personal history of irradiation

== ENCOUNTER → 2021-03-15 | Outpatient (CLI) | payer MEDICARE, OTHER ==
[2021-03-15 16:06] LABS: HEMATOCRIT 37.4 % (36.0-47.0)
[2021-03-15 16:08] LABS: BASO # 0.1 10^3/uL (0.0-0.2); BASO % 1.4 % (0.0-1.0); EOS # 0.5 10^3/uL (0.0-0.5); EOS % 9.9 % (0.0-3.0); HEMATOCRIT 37.6 % (36.0-47.0); HEMOGLOBIN 13.3 g/dl (12.0-15.5); LYMPH # 1.6 10^3/uL (1.5-5.0); LYMPH % 33.3 % (24.0-44.0); MEAN CORPUSCULAR HEMOGLOBIN 33.3 pg (27.0-33.0); MEAN CORPUSCULAR HGB CONC 35.4 g/dl (32.0-36.5); MEAN CORPUSCULAR VOLUME 94.2 fl (80.0-96.0); MONO # 0.5 10^3/uL (0.0-0.8); MONO % 9.3 % (2.0-8.0); NEUTROPHILS # 2.2 10^3/uL (1.5-8.5); NEUTROPHILS % 46.1 % (36.0-66.0); PLATELET COUNT, AUTOMATED 133 10^3/uL (150-450); RED BLOOD COUNT 3.99 10^6/uL (4.00-5.40); WHITE BLOOD COUNT 4.8 10^3/uL (4.0-10.0)
[2021-03-15 16:22] LABS: BLOOD UREA NITROGEN 9 MG/DL (7-18); CARBON DIOXIDE LEVEL 25 MEQ/L (21-32); CHLORIDE LEVEL 112 MEQ/L (98-107); CREATININE FOR GFR 0.62 MG/DL (0.55-1.30); GLOMERULAR FILTRATION RATE > 60.0 (>45); GLUCOSE, FASTING 184 MG/DL (70-100); POTASSIUM SERUM 3.5 MEQ/L (3.5-5.1); SODIUM LEVEL 146 MEQ/L (136-145)
[2021-03-15 16:23] LABS: ALBUMIN 3.5 GM/DL (3.2-5.2); ALT/SGPT 41 U/L (12-78); BILIRUBIN,TOTAL 0.9 MG/DL (0.2-1.0); CALCIUM LEVEL 8.5 MG/DL (8.8-10.2); FERRITIN 30 NG/ML (8-252); IRON (FE) 138 UG/DL (50-170); MAGNESIUM LEVEL 1.9 MG/DL (1.8-2.4); PERCENT SATURATION 43.4 % (13.2-45.0); TOTAL IRON BINDING CAPACITY 318 UG/DL (250-450); TOTAL PROTEIN 7.6 GM/DL (6.4-8.2)
[2021-03-15 16:30] LABS: TOTAL 25(OH) VITAMIN D 39.4 NG/ML (30.0-100.0); VITAMIN B12 LEVEL 937 PG/ML (247-911)
[2021-03-15 18:15] LABS: HEMOGLOBIN A1c 7.3 %
== END ==
LOC: M PLALAB 13:33
PROVIDERS: ATTEND Physician Assistant Surgical
DX: K91.2 Postsurgical malabsorption, not elsewhere classified (principal); Z98.84 Bariatric surgery status; E55.9 Vitamin D deficiency, unspecified; Z86.39 Personal history of other endocrine, nutritional and metabolic disease

== ENCOUNTER → 2021-05-15 | Outpatient (CLI) | payer MEDICARE, OTHER ==
--- NOTE | 2021-05-15 09:46 | REP ---
INDICATION: CIRRHOSIS. COMPARISON: 11/26/2020 TECHNIQUE: Real-time sonographic evaluation of the right upper quadrant FINDINGS: Multiple ultrasonographic images of the liver show the hepatic parenchymal echo texture to appear somewhat coarsened status quo. There are no focal masses. There is no intrahepatic ductal dilatation. The common bile duct measures approximately 9 mm in its greatest transverse dimension. Images of the pancreatic region show no gross abnormality. Images of the right kidney show no abnormality or significant change from the prior exam. The imaged portion of the right kidney is unremarkable. IMPRESSION: No significant change from the prior exam. Status post cholecystectomy with mild common bile duct dilatation consistent with the post cholecystectomy state. Accredited by the [employer] in General Ultrasound. <Electronically signed by Dionisio Coulter > 05/15/21 [id number]
== END ==
LOC: M RAD 09:00
PROVIDERS: ATTEND Physician Assistant
DX: K74.60 Unspecified cirrhosis of liver (principal); K31.84 Gastroparesis; G93.40 Encephalopathy, unspecified

== ENCOUNTER → 2021-05-22 | Outpatient (CLI) | payer MEDICARE ==
--- NOTE | 2021-05-22 15:14 | DEXAMM ---
INDICATION: MCC ESTROGEN USE, SCR OSTEOPOROSIS. COMPARISON: 05/19/2019. TECHNIQUE: Bone density was measured using dual-energy x-ray absorptionmetry (DEXA). FINDINGS: AP SPINE L1-L4 BMD 1.635 g/cm2 Young Adult T-Score 3.6 Age Matched Z-Score 5.1. LT FEMUR, TOTAL BMD 1.085 g/cm2 Young Adult T-Score 0.6 Age Matched Z-Score 1.7. LT NECK BMD 1.040 g/cm2 Young Adult T-Score 0.0 Age Matched Z-Score 1.4. RT FEMUR, TOTAL BMD 0.967 g/cm2 Young Adult T-Score -0.3 Age Matched Z-Score 0.8. RT NECK BMD 0.934 g/cm2 Young Adult T-Score -0.7 Age Matched Z-Score 0.7. IMPRESSION: There is normal bone density of the spine. There is normal bone density of the left hip. There is normal bone density of the right hip. The density of the spine has increased 3.9% since the initial exam on May 09, 2015. The density of the spine decreased 4.8% since most recent exam on May 19, 2019. The density of the left hip has decreased 14.6% since initial exam on May 09, 2019. The density of the left hip has decreased 7.2% since most recent exam on May 19, 2019. The density of the right hip has decreased 17.5% since the initial exam on May 09, 2015. The density of the right hip has decreased 12.3% since the most recent exam on May 19, 2019. FOLLOW-UP: Recommendation for the next bone density exam: 5 years. <Electronically signed by Casimiro Jett > 05/22/21 [id number]
== END ==
LOC: M WHC 11:20
PROVIDERS: ATTEND Family Medicine
DX: C50.412 Malignant neoplasm of upper-outer quadrant of left female breast (principal)

== ENCOUNTER → 2021-06-03 | Outpatient (CLI) | payer MEDICARE ==
--- NOTE | 2021-06-03 09:43 | REP ---
INDICATION: CALCULUS OF KIDNEY COMPARISON: 11/12/2020 TECHNIQUE: Supine views of the abdomen and pelvis. FINDINGS: Evaluation of the urinary tract system is limited by overlying bowel gas and fecal material. No obvious urinary tract calcifications are identified. Calcifications in the left hemipelvis are nonspecific and may represent phleboliths. Evidence for prior cholecystectomy. Skeletal structures demonstrate stable degenerative changes. IMPRESSION: Limited evaluation of the urinary tract system due to overlying bowel gas/fecal material. <Electronically signed by Isak Toussaint > 06/03/21 [id number]
== END ==
LOC: M RAD 08:48
PROVIDERS: ATTEND Urology
DX: N20.0 Calculus of kidney (principal)

== ENCOUNTER → 2021-06-18 | Outpatient (CLI) | payer MEDICARE ==
[~2021-06-18] MED LIST changes: +CYMB60CA4 PO
--- NOTE | 2021-06-18 15:29 | REP ---
INDICATION: KIDNEY STONE. COMPARISON: Multiple the latest 08/30/2020 TECHNIQUE: Standard helical technique without intravenous contrast administration. Stone protocol utilized. FINDINGS: There is no significant change in appearance of the lung bases. The liver and spleen are unchanged. Once again, there is a nodular surface to the hepatic parenchyma. Surgical clips are again seen in the gallbladder fossa from previous cholecystectomy. Postop changes are seen in the left upper quadrant likely secondary to bariatric surgery. 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 The adrenal glands are unchanged. There are no left nephroliths. Left-sided obstructive uropathy seen previously has abated. There are multiple right nephroliths secondary to superimposition and volume-averaging they cannot be counted or individually assessed, however, overall the do not appear to be significantly changed compared to the prior exam. There are no right-sided ureteroliths and there is no evidence of obstructive uropathy. There are no urinary bladder calcifications. There are pelvic phleboliths status quo. There is no significant change in appearance of the abdominal aorta or para-regions. There is no evidence of free fluid or free air. There is no significant change in appearance of the bowel loops or the mesenteries. Bone window technique throughout the examination shows spinal degenerative changes status quo. IMPRESSION: 1. Cirrhosis. 2. Portal hypertension as described above. 3. Right-sided nephroliths as described above. 4. No evidence of obstructive uropathy. 5. Other findings as described above. <Electronically signed by Dionisio Coulter > 06/18/21 [id number]
== END ==
LOC: M RAD 14:57
PROVIDERS: ATTEND Urology
DX: K74.60 Unspecified cirrhosis of liver (principal); K76.6 Portal hypertension; N20.0 Calculus of kidney

== ENCOUNTER → 2021-08-07 | Outpatient (CLI) | payer MEDICARE ==
[~2021-08-07] MED LIST changes: +LOSA100T45 PO; -LOSA100T50 PO; -MONT10TA10 PO; +MONT10TA97 PO
== END ==
LOC: M PLALAB 13:16
PROVIDERS: ATTEND Physician Assistant
DX: G93.40 Encephalopathy, unspecified (principal)

== ENCOUNTER → 2021-08-15 | Outpatient (CLI) | payer MEDICARE ==
[~2021-08-15] MED LIST changes: -LOSA100T45 PO; +LOSA100T50 PO; +MONT10TA10 PO; -MONT10TA97 PO
[2021-08-15 13:28] LABS: HEMOGLOBIN A1c 7.2 %
[2021-08-15 13:41] LABS: ALBUMIN 3.5 GM/DL (3.2-5.2); ALT/SGPT 41 U/L (12-78); BLOOD UREA NITROGEN 7 MG/DL (7-18); CALCIUM LEVEL 9.2 MG/DL (8.8-10.2); CARBON DIOXIDE LEVEL 27 MEQ/L (21-32); CHLORIDE LEVEL 112 MEQ/L (98-107); CREATININE FOR GFR 0.77 MG/DL (0.55-1.30); GLOMERULAR FILTRATION RATE > 60.0 (>45); GLUCOSE, FASTING 153 MG/DL (70-100); POTASSIUM SERUM 3.9 MEQ/L (3.5-5.1); SODIUM LEVEL 145 MEQ/L (136-145); TOTAL PROTEIN 7.5 GM/DL (6.4-8.2)
[2021-08-15 13:50] LABS: MALB URINE SIEMENS 12.7 MG/L; MAU/CREAT RATIO 10.1 MCG/MG (0.0-30.0)
== END ==
LOC: M PLALAB 10:22
PROVIDERS: ATTEND Family Medicine
DX: E11.65 Type 2 diabetes mellitus with hyperglycemia (principal)

== ENCOUNTER → 2021-11-14 | Outpatient (CLI) | payer MEDICARE ==
[~2021-11-14] MED LIST changes: +LOSA100T45 PO; -LOSA100T50 PO; -MONT10TA10 PO; +MONT10TA97 PO
[2021-11-14 09:49] LABS: BASO # 0.1 10^3/uL (0.0-0.2); BASO % 1.1 % (0.0-1.0); EOS # 0.6 10^3/uL (0.0-0.5); EOS % 12.6 % (0.0-3.0); HEMATOCRIT 39.5 % (36.0-47.0); HEMOGLOBIN 13.6 g/dl (12.0-15.5); LYMPH # 1.5 10^3/uL (1.5-5.0); LYMPH % 32.7 % (24.0-44.0); MEAN CORPUSCULAR HEMOGLOBIN 33.6 pg (27.0-33.0); MEAN CORPUSCULAR HGB CONC 34.4 g/dl (32.0-36.5); MEAN CORPUSCULAR VOLUME 97.5 fl (80.0-96.0); MONO # 0.5 10^3/uL (0.0-0.8); MONO % 10.2 % (2.0-8.0); NEUTROPHILS % 43.2 % (36.0-66.0); PLATELET COUNT, AUTOMATED 154 10^3/uL (150-450); RED BLOOD COUNT 4.05 10^6/uL (4.00-5.40); WHITE BLOOD COUNT 4.5 10^3/uL (4.0-10.0)
[2021-11-14 10:03] LABS: HEMOGLOBIN A1c 5.9 %
[2021-11-14 10:42] LABS: ALBUMIN 3.2 GM/DL (3.2-5.2); ALT/SGPT 57 U/L (12-78); BILIRUBIN,TOTAL 0.7 MG/DL (0.2-1.0); BLOOD UREA NITROGEN 6 MG/DL (7-18); CALCIUM LEVEL 8.9 MG/DL (8.8-10.2); CARBON DIOXIDE LEVEL 30 MEQ/L (21-32); CHLORIDE LEVEL 111 MEQ/L (98-107); CHOLESTEROL LEVEL 114 MG/DL (<200); CHOLESTEROL RISK RATIO 1.965 (<5); CREATININE FOR GFR 0.65 MG/DL (0.55-1.30); FREE T4 0.98 NG/DL (0.76-1.46); GLOMERULAR FILTRATION RATE > 60.0 (>45); GLUCOSE, FASTING 125 MG/DL (70-100); HDL CHOLESTEROL 58 MG/DL (>40); LDL CHOLESTEROL 46 MG/DL (<100); NON-HDL-C 56 MG/DL; POTASSIUM SERUM 4.6 MEQ/L (3.5-5.1); SODIUM LEVEL 143 MEQ/L (136-145); TRIGLYCERIDES LEVEL 51 MG/DL (<150)
== END ==
LOC: M LAB 08:48
PROVIDERS: ATTEND Family Medicine
DX: E11.65 Type 2 diabetes mellitus with hyperglycemia (principal)

== ENCOUNTER → 2021-11-14 | Outpatient (CLI) | payer MEDICARE ==
[2021-11-14 10:19] LABS: ALBUMIN 3.3 GM/DL (3.2-5.2); ALT/SGPT 56 U/L (12-78); BILIRUBIN,TOTAL 0.8 MG/DL (0.2-1.0); BLOOD UREA NITROGEN 7 MG/DL (7-18); CALCIUM LEVEL 9.4 MG/DL (8.8-10.2); CARBON DIOXIDE LEVEL 31 MEQ/L (21-32); CHLORIDE LEVEL 112 MEQ/L (98-107); CREATININE FOR GFR 0.66 MG/DL (0.55-1.30); GLOMERULAR FILTRATION RATE > 60.0 (>45); GLUCOSE, FASTING 127 MG/DL (70-100); POTASSIUM SERUM 4.5 MEQ/L (3.5-5.1); SODIUM LEVEL 144 MEQ/L (136-145); TOTAL PROTEIN 7.2 GM/DL (6.4-8.2)
== END ==
LOC: M LAB 08:51
PROVIDERS: ATTEND Internal Medicine Gastroenterology
DX: G93.40 Encephalopathy, unspecified (principal); K74.60 Unspecified cirrhosis of liver; R10.13 Epigastric pain; Z86.010 Personal history of colon polyps; K21.9 Gastro-esophageal reflux disease without esophagitis; I85.00 Esophageal varices without bleeding; K31.84 Gastroparesis; R19.5 Other fecal abnormalities

== ENCOUNTER → 2021-11-21 | Outpatient (CLI) | payer MEDICARE | LOC: M RAD 08:27 | PROVIDERS: ATTEND Physician Assistant | DX: G93.40 Encephalopathy, unspecified (principal); K74.60 Unspecified cirrhosis of liver; Z86.010 Personal history of colon polyps; K21.9 Gastro-esophageal reflux disease without esophagitis; I85.00 Esophageal varices without bleeding; K31.84 Gastroparesis; R19.5 Other fecal abnormalities ==

== ENCOUNTER → 2021-12-24 | Outpatient (CLI) | payer MEDICARE | LOC: M RAD 15:45 | PROVIDERS: ATTEND Urology | DX: N20.0 Calculus of kidney (principal) ==

== ENCOUNTER → 2022-01-21 | Outpatient (CLI) | payer MEDICARE | LOC: M LAB 15:11 | PROVIDERS: ATTEND Nurse Practitioner Adult Health | DX: K72.90 Hepatic failure, unspecified without coma (principal) ==

== ENCOUNTER → 2022-01-27 | Outpatient (CLI) | payer MEDICARE ==
[2022-01-27 17:04] LABS: BASO # 0.1 10^3/uL (0.0-0.2); BASO % 1.2 % (0.0-1.0); EOS # 0.6 10^3/uL (0.0-0.5); EOS % 9.9 % (0.0-3.0); HEMATOCRIT 35.5 % (36.0-47.0); HEMOGLOBIN 12.5 g/dl (12.0-15.5); LYMPH # 1.7 10^3/uL (1.5-5.0); LYMPH % 29.6 % (24.0-44.0); MEAN CORPUSCULAR HEMOGLOBIN 34.2 pg (27.0-33.0); MEAN CORPUSCULAR HGB CONC 35.2 g/dl (32.0-36.5); MEAN CORPUSCULAR VOLUME 97.3 fl (80.0-96.0); MONO # 0.6 10^3/uL (0.0-0.8); MONO % 9.4 % (2.0-8.0); NEUTROPHILS # 2.9 10^3/uL (1.5-8.5); NEUTROPHILS % 49.7 % (36.0-66.0); PLATELET COUNT, AUTOMATED 147 10^3/uL (150-450); RED BLOOD COUNT 3.65 10^6/uL (4.00-5.40); WHITE BLOOD COUNT 5.9 10^3/uL (4.0-10.0)
[2022-01-27 17:32] LABS: ALBUMIN 3.1 GM/DL (3.2-5.2); ALT/SGPT 61 U/L (12-78); BILIRUBIN,TOTAL 0.7 MG/DL (0.2-1.0); BLOOD UREA NITROGEN 8 MG/DL (7-18); CALCIUM LEVEL 8.5 MG/DL (8.8-10.2); CARBON DIOXIDE LEVEL 27 MEQ/L (21-32); CHLORIDE LEVEL 114 MEQ/L (98-107); CREATININE FOR GFR 0.77 MG/DL (0.55-1.30); GLOMERULAR FILTRATION RATE > 60.0 (>45); GLUCOSE, FASTING 86 MG/DL (70-100); POTASSIUM SERUM 3.8 MEQ/L (3.5-5.1); SODIUM LEVEL 145 MEQ/L (136-145); TOTAL PROTEIN 6.6 GM/DL (6.4-8.2)
[2022-01-27 17:36] LABS: ERYTHROCYTE SEDIMENTATION RATE 34 mm/hr (0-30)
== END ==
LOC: M LAB 16:31
PROVIDERS: ATTEND Nurse Practitioner Adult Health
DX: J01.11 Acute recurrent frontal sinusitis (principal)

== ENCOUNTER → 2022-01-30 | Outpatient (CLI) | payer MEDICARE | LOC: M PLAIMG 10:06 | PROVIDERS: ATTEND Nurse Practitioner Adult Health | DX: J01.11 Acute recurrent frontal sinusitis (principal); J01.01 Acute recurrent maxillary sinusitis ==

== ENCOUNTER → 2022-02-19 | Outpatient (CLI) | payer MEDICARE | LOC: M PLALAB 11:35 | PROVIDERS: ATTEND Nurse Practitioner Adult Health | DX: K72.90 Hepatic failure, unspecified without coma (principal) ==

== ENCOUNTER → 2022-03-12 | Outpatient (CLI) | payer MEDICARE | LOC: M WHC 12:37 | PROVIDERS: ATTEND Internal Medicine | DX: Z12.31 Encounter for screening mammogram for malignant neoplasm of breast (principal); Z85.3 Personal history of malignant neoplasm of breast ==

== ENCOUNTER 2022-05-01 17:16 | Emergency (ER) | payer MEDICARE ==
[~2022-05-01] VITALS: Ht 177.8 cm; Wt 101.8 kg
[2022-05-01 17:17] VITALS: BP 150/74
[2022-05-01] MEDS ORDERED: ACETAMINOPHEN TAB 650MG DOSE (2X325MG) PO ONE (20:45)
[2022-05-01] MEDS ORDERED: BOOSTRIX/ADACEL VACCINE (DIPHTH/PERTUSS/ACELL/TETANUS) 0.5ML SYR IM ONE (20:45)
== END 2022-05-01 22:51 | disposition home or self-care (01) ==
LOC: M ED 17:16
DX: S62.347A Nondisplaced fracture of base of fifth metacarpal bone, left hand, initial encounter for closed fracture (principal); S00.83XA Contusion of other part of head, initial encounter; W18.39XA Other fall on same level, initial encounter; Y92.512 Supermarket, store or market as the place of occurrence of the external cause; I10 Essential (primary) hypertension; E11.9 Type 2 diabetes mellitus without complications; J45.909 Unspecified asthma, uncomplicated; Z79.899 Other long term (current) drug therapy; Z79.84 Long term (current) use of oral hypoglycemic drugs

== ENCOUNTER → 2022-05-01 | Outpatient (CLI) | payer MEDICARE ==
[2022-05-01 15:56] LABS: BASO # 0.1 10^3/uL (0.0-0.2); BASO % 1.4 % (0.0-1.0); EOS # 0.5 10^3/uL (0.0-0.5); EOS % 8.6 % (0.0-3.0); HEMATOCRIT 39.6 % (36.0-47.0); HEMOGLOBIN 13.4 g/dl (12.0-15.5); LYMPH # 1.8 10^3/uL (1.5-5.0); LYMPH % 31.4 % (24.0-44.0); MEAN CORPUSCULAR HEMOGLOBIN 32.9 pg (27.0-33.0); MEAN CORPUSCULAR HGB CONC 33.8 g/dl (32.0-36.5); MEAN CORPUSCULAR VOLUME 97.3 fl (80.0-96.0); MONO # 0.5 10^3/uL (0.0-0.8); MONO % 8.6 % (2.0-8.0); NEUTROPHILS # 2.9 10^3/uL (1.5-8.5); NEUTROPHILS % 49.8 % (36.0-66.0); PLATELET COUNT, AUTOMATED 158 10^3/uL (150-450); RED BLOOD COUNT 4.07 10^6/uL (4.00-5.40); WHITE BLOOD COUNT 5.7 10^3/uL (4.0-10.0)
[2022-05-01 16:43] LABS: ALBUMIN 3.4 GM/DL (3.2-5.2); ALT/SGPT 55 U/L (12-78); AMYLASE 37 U/L (25-115); BILIRUBIN,DIRECT 0.3 MG/DL (0.0-0.2); BILIRUBIN,TOTAL 0.8 MG/DL (0.2-1.0); BLOOD UREA NITROGEN 9 MG/DL (7-18); CALCIUM LEVEL 9.7 MG/DL (8.8-10.2); CARBON DIOXIDE LEVEL 28 MEQ/L (21-32); CHLORIDE LEVEL 110 MEQ/L (98-107); CREATININE FOR GFR 0.74 MG/DL (0.55-1.30); GLOMERULAR FILTRATION RATE > 60.0 (>45); GLUCOSE, FASTING 208 MG/DL (70-100); LIPASE 115 U/L (73-393); POTASSIUM SERUM 4.3 MEQ/L (3.5-5.1); SODIUM LEVEL 140 MEQ/L (136-145); TOTAL PROTEIN 7.6 GM/DL (6.4-8.2)
[2022-05-01 17:39] LABS: HEMOGLOBIN A1c 8.9 %
[2022-05-01 19:18] LABS: APPEARANCE, URINE MANUAL CLEAR (CLEAR); COLOR, URINE MANUAL YELLOW (YELLOW)
[2022-05-01 19:20] LABS: BILIRUBIN, URINE MANUAL NEGATIVE (NEGATIVE); BLOOD URINE MANUAL NEGATIVE (NEGATIVE); GLUCOSE, URINE (UA) MANUAL 4+(1000 MG/DL) mg/dL (NEGATIVE); KETONE, URINE MANUAL NEGATIVE (NEGATIVE); LEUKOCYTE ESTERASE, URINE MAN NEGATIVE (NEGATIVE); NITRITE, URINE MANUAL NEGATIVE (NEGATIVE); PROTEIN, URINE MANUAL NEGATIVE (NEGATIVE); UROBILINOGEN, URINE MANUAL NORMAL (NORMAL)
== END ==
LOC: M PLALAB 14:08
PROVIDERS: ATTEND Physician Assistant
DX: E11.65 Type 2 diabetes mellitus with hyperglycemia (principal); K72.90 Hepatic failure, unspecified without coma; I10 Essential (primary) hypertension; Z79.899 Other long term (current) drug therapy

== ENCOUNTER → 2022-05-06 | Outpatient (CLI) | payer MEDICARE | LOC: M PLAIMG 13:48 | PROVIDERS: ATTEND Orthopaedic Surgery | DX: M43.16 Spondylolisthesis, lumbar region (principal); M51.27 Other intervertebral disc displacement, lumbosacral region ==

== ENCOUNTER → 2022-05-15 | Outpatient (CLI) | payer MEDICARE ==
[2022-05-15 12:07] LABS: HEMATOCRIT 39.4 % (36.0-47.0); HEMOGLOBIN 13.8 g/dl (12.0-15.5); MEAN CORPUSCULAR HEMOGLOBIN 33.7 pg (27.0-33.0); MEAN CORPUSCULAR VOLUME 96.1 fl (80.0-96.0); PLATELET COUNT, AUTOMATED 156 10^3/uL (150-450); WHITE BLOOD COUNT 6.3 10^3/uL (4.0-10.0)
[2022-05-15 12:22] LABS: INR 1.03; PROTHROMBIN TIME 13.9 SECONDS (12.7-14.5)
[2022-05-15 12:56] LABS: ALBUMIN 3.2 GM/DL (3.2-5.2); ALT/SGPT 61 U/L (12-78); BILIRUBIN,TOTAL 0.8 MG/DL (0.2-1.0); BLOOD UREA NITROGEN 14 MG/DL (7-18); CALCIUM LEVEL 9.3 MG/DL (8.8-10.2); CARBON DIOXIDE LEVEL 23 MEQ/L (21-32); CHLORIDE LEVEL 111 MEQ/L (98-107); CREATININE FOR GFR 0.92 MG/DL (0.55-1.30); GLOMERULAR FILTRATION RATE > 60.0 (>45); GLUCOSE, FASTING 375 MG/DL (70-100); SODIUM LEVEL 141 MEQ/L (136-145); TOTAL PROTEIN 7.4 GM/DL (6.4-8.2)
== END ==
LOC: M LAB 11:18
PROVIDERS: ATTEND Physician Assistant
DX: K74.60 Unspecified cirrhosis of liver (principal); G93.40 Encephalopathy, unspecified; K21.9 Gastro-esophageal reflux disease without esophagitis; K31.84 Gastroparesis; I85.00 Esophageal varices without bleeding; R10.13 Epigastric pain; R19.5 Other fecal abnormalities; Z86.010 Personal history of colon polyps

== ENCOUNTER → 2022-05-20 | Outpatient (REF) | payer MEDICARE | LOC: M LAB REF 16:39 | PROVIDERS: ATTEND Physician Assistant | DX: N39.0 Urinary tract infection, site not specified (principal) ==

== ENCOUNTER → 2022-06-06 | Outpatient (CLI) | payer MEDICARE | LOC: M RAD 09:30 | PROVIDERS: ATTEND Physician Assistant | DX: K76.0 Fatty (change of) liver, not elsewhere classified (principal); N20.0 Calculus of kidney; K74.60 Unspecified cirrhosis of liver; G93.40 Encephalopathy, unspecified ==

== ENCOUNTER → 2022-07-15 | Outpatient (CLI) | payer MEDICARE | LOC: M PLAIMG 11:49 | PROVIDERS: ATTEND Nurse Practitioner Women's Health | DX: Z87.442 Personal history of urinary calculi (principal); Z87.891 Personal history of nicotine dependence ==

== ENCOUNTER → 2022-08-29 | Outpatient (CLI) | payer MEDICARE ==
[2022-08-29 11:38] LABS: BASO # 0.1 10^3/uL (0.0-0.2); BASO % 1.6 % (0.0-1.0); EOS # 0.7 10^3/uL (0.0-0.5); EOS % 12.8 % (0.0-3.0); HEMATOCRIT 39.2 % (36.0-47.0); HEMOGLOBIN 13.5 g/dl (12.0-15.5); LYMPH # 1.6 10^3/uL (1.5-5.0); LYMPH % 30.9 % (24.0-44.0); MEAN CORPUSCULAR HEMOGLOBIN 33.3 pg (27.0-33.0); MEAN CORPUSCULAR HGB CONC 34.4 g/dl (32.0-36.5); MEAN CORPUSCULAR VOLUME 96.6 fl (80.0-96.0); MONO # 0.4 10^3/uL (0.0-0.8); MONO % 8.7 % (2.0-8.0); NEUTROPHILS # 2.3 10^3/uL (1.5-8.5); NEUTROPHILS % 45.8 % (36.0-66.0); PLATELET COUNT, AUTOMATED 146 10^3/uL (150-450); RED BLOOD COUNT 4.06 10^6/uL (4.00-5.40); WHITE BLOOD COUNT 5.1 10^3/uL (4.0-10.0)
[2022-08-29 11:49] LABS: HEMOGLOBIN A1c 8.9 % (4.0-6.0)
[2022-08-29 12:07] LABS: ALBUMIN 3.3 G/DL (3.2-5.2); ALKALINE PHOSPHATASE 106 U/L (46-116); ALT/SGPT 45 U/L (7.0-40); AST/SGOT 59 U/L (<34); BILIRUBIN,TOTAL 0.8 MG/DL (0.3-1.2); BLOOD UREA NITROGEN 11 MG/DL (9-23); CALCIUM LEVEL 9.1 MG/DL (8.3-10.6); CARBON DIOXIDE LEVEL 25 MMOL/L (20-31); CHLORIDE LEVEL 109 MMOL/L (98-107); CHOLESTEROL LEVEL 109 MG/DL (<200); CHOLESTEROL RISK RATIO 2.25 (<5); CREATININE FOR GFR 0.59 MG/DL (0.55-1.30); GLOMERULAR FILTRATION RATE > 60.0 (>45); GLUCOSE, FASTING 206 MG/DL (74-106); HDL CHOLESTEROL 48.3 MG/DL (>40); LDL CHOLESTEROL 46.7 MG/DL (<100); NON-HDL-C 61 MG/DL; SODIUM LEVEL 141 MMOL/L (136-145); TRIGLYCERIDES LEVEL 70 MG/DL (<150)
[2022-08-29 12:10] LABS: FREE T4 0.63 NG/DL (0.89-1.76); THYROID STIMULATING HORMONE 1.462 uIU/ML (0.55-4.78)
== END ==
LOC: M LAB 10:30 → M PLALAB 10:30
PROVIDERS: ATTEND Nurse Practitioner Adult Health
DX: E11.65 Type 2 diabetes mellitus with hyperglycemia (principal); K72.90 Hepatic failure, unspecified without coma; I10 Essential (primary) hypertension

== ENCOUNTER → 2022-09-22 | Outpatient (CLI) | payer MEDICARE ==
[2022-09-22 16:29] LABS: PLATELET COUNT, AUTOMATED 142 10^3/uL (150-450)
[2022-09-22 16:39] LABS: INR 1.06
[2022-09-22 16:40] LABS: PARTIAL THROMBOPLASTIN TIME 34.6 SECONDS (24.8-34.2)
== END ==
LOC: M LAB 15:22
PROVIDERS: ATTEND Physician Assistant
DX: M48.062 Spinal stenosis, lumbar region with neurogenic claudication (principal); Z79.899 Other long term (current) drug therapy

== ENCOUNTER → 2022-11-07 | Outpatient (CLI) | payer MEDICARE ==
[~2022-11-07] MED LIST changes: +MONT-5 PO; -SING10TA32 PO
[2022-11-07 12:02] LABS: BASO # 0.1 10^3/uL (0.0-0.2); BASO % 1.6 % (0.0-1.0); EOS # 0.7 10^3/uL (0.0-0.5); EOS % 12.3 % (0.0-3.0); HEMATOCRIT 40.9 % (36.0-47.0); HEMOGLOBIN 14.2 g/dl (12.0-15.5); LYMPH # 1.9 10^3/uL (1.5-5.0); LYMPH % 34.1 % (24.0-44.0); MEAN CORPUSCULAR HEMOGLOBIN 33.7 pg (27.0-33.0); MEAN CORPUSCULAR HGB CONC 34.7 g/dl (32.0-36.5); MEAN CORPUSCULAR VOLUME 97.1 fl (80.0-96.0); MONO # 0.5 10^3/uL (0.0-0.8); MONO % 9.6 % (2.0-8.0); NEUTROPHILS # 2.3 10^3/uL (1.5-8.5); NEUTROPHILS % 42.2 % (36.0-66.0); PLATELET COUNT, AUTOMATED 139 10^3/uL (150-450); RED BLOOD COUNT 4.21 10^6/uL (4.00-5.40); WHITE BLOOD COUNT 5.5 10^3/uL (4.0-10.0)
[2022-11-07 12:18] LABS: HEMOGLOBIN A1c 10.6 % (4.0-6.0)
[2022-11-07 12:48] LABS: ALBUMIN 3.3 G/DL (3.2-5.2); ALKALINE PHOSPHATASE 108 U/L (46-116); ALT/SGPT 55 U/L (7.0-40); AST/SGOT 55 U/L (<34); BILIRUBIN,TOTAL 0.9 MG/DL (0.3-1.2); BLOOD UREA NITROGEN 12 MG/DL (9-23); CALCIUM LEVEL 9.1 MG/DL (8.3-10.6); CARBON DIOXIDE LEVEL 30 MMOL/L (20-31); CHLORIDE LEVEL 105 MMOL/L (98-107); CHOLESTEROL LEVEL 126 MG/DL (<200); CHOLESTEROL RISK RATIO 2.38 (<5); CREATININE FOR GFR 0.64 MG/DL (0.55-1.30); GLOMERULAR FILTRATION RATE > 60.0 (>45); GLUCOSE, FASTING 179 MG/DL (74-106); HDL CHOLESTEROL 52.8 MG/DL (>40); NON-HDL-C 73.2 MG/DL; POTASSIUM SERUM 4.2 MMOL/L (3.5-5.1); SODIUM LEVEL 142 MMOL/L (136-145)
[2022-11-07 18:07] LABS: LDL CHOLESTEROL 59.2 MG/DL (<100); TOTAL PROTEIN 6.9 G/DL (5.7-8.2); TRIGLYCERIDES LEVEL 70 MG/DL (<150)
== END ==
LOC: M LAB 11:25
PROVIDERS: ATTEND Family Medicine
DX: E11.65 Type 2 diabetes mellitus with hyperglycemia (principal)

== ENCOUNTER → 2023-01-08 | Outpatient (CLI) | payer MEDICARE ==
[~2023-01-08] MED LIST changes: -LOSA100T45 PO; +LOSA100T46 PO; +POTA-298 PO; -POTA1TAB14 PO
[2023-01-08 10:29] LABS: BASO # 0.1 10^3/uL (0.0-0.2); BASO % 1.5 % (0.0-1.0); EOS # 0.7 10^3/uL (0.0-0.5); EOS % 12.4 % (0.0-3.0); HEMATOCRIT 39.2 % (36.0-47.0); HEMOGLOBIN 14.2 g/dl (12.0-15.5); LYMPH # 1.7 10^3/uL (1.5-5.0); LYMPH % 28.9 % (24.0-44.0); MEAN CORPUSCULAR HEMOGLOBIN 34.1 pg (27.0-33.0); MEAN CORPUSCULAR HGB CONC 36.2 g/dl (32.0-36.5); MONO # 0.5 10^3/uL (0.0-0.8); MONO % 9.1 % (2.0-8.0); NEUTROPHILS # 2.8 10^3/uL (1.5-8.5); NEUTROPHILS % 47.9 % (36.0-66.0); PLATELET COUNT, AUTOMATED 154 10^3/uL (150-450); RED BLOOD COUNT 4.17 10^6/uL (4.00-5.40); WHITE BLOOD COUNT 5.8 10^3/uL (4.0-10.0)
[2023-01-08 10:45] LABS: HEMOGLOBIN A1c 8.6 % (4.0-6.0)
[2023-01-08 10:56] LABS: LIPASE 32 U/L (12-53)
[2023-01-08 10:57] LABS: AMYLASE 51 U/L (30-118)
[2023-01-08 10:58] LABS: CREATININE, URINE 74.6 MG/DL
[2023-01-08 10:58] LABS: ALBUMIN 3.3 G/DL (3.2-5.2); ALKALINE PHOSPHATASE 126 U/L (46-116); ALT/SGPT 56 U/L (7.0-40); AST/SGOT 47 U/L (<34); BILIRUBIN,DIRECT 0.3 MG/DL (<0.4); BILIRUBIN,TOTAL 0.8 MG/DL (0.3-1.2); BLOOD UREA NITROGEN 9 MG/DL (9-23); CALCIUM LEVEL 8.7 MG/DL (8.3-10.6); CARBON DIOXIDE LEVEL 27 MMOL/L (20-31); CHLORIDE LEVEL 110 MMOL/L (98-107); CREATININE FOR GFR 0.65 MG/DL (0.55-1.30); GLOMERULAR FILTRATION RATE > 60.0 (>45); GLUCOSE, FASTING 202 MG/DL (74-106); POTASSIUM SERUM 3.9 MMOL/L (3.5-5.1); SODIUM LEVEL 142 MMOL/L (136-145)
[2023-01-08 10:59] LABS: MAU/CREAT RATIO 26.8 MCG/MG (0.0-30.0)
== END ==
LOC: M LAB 09:33
PROVIDERS: ATTEND Physician Assistant
DX: K72.90 Hepatic failure, unspecified without coma (principal); E11.65 Type 2 diabetes mellitus with hyperglycemia

== ENCOUNTER → 2023-01-08 | Outpatient (CLI) | payer MEDICARE | LOC: M RAD 09:37 | PROVIDERS: ATTEND Nurse Practitioner Women's Health | DX: N20.0 Calculus of kidney (principal) ==

== ENCOUNTER → 2023-01-16 | Outpatient (CLI) | payer MEDICARE | LOC: M PLAIMG 11:17 | PROVIDERS: ATTEND Physician Assistant | DX: N20.0 Calculus of kidney (principal) ==

== ENCOUNTER → 2023-02-04 | Outpatient (CLI) | payer MEDICARE ==
[~2023-02-04] MED LIST changes: +GLIP10TA6 PO; +OXYB5TAB10 PO; +TOUJ300I2 SC
[2023-02-04 10:46] LABS: APPEARANCE, URINE CLEAR (CLEAR); BACTERIA, URINE AUTO NEGATIVE (NEGATIVE); BILIRUBIN, URINE AUTO NEGATIVE (NEGATIVE); BLOOD, URINE BLOOD NEGATIVE (NEGATIVE); COLOR, URINE YELLOW (YELLOW); GLUCOSE, URINE (UA) AUTO 1+ mg/dL (NEGATIVE); KETONE, URINE AUTO NEGATIVE (NEGATIVE); LEUKOCYTE ESTERASE, URINE AUTO TRACE (NEGATIVE); NITRITE, URINE AUTO NEGATIVE (NEGATIVE); PROTEIN, URINE AUTO NEGATIVE (NEGATIVE); RBC, URINE AUTO 0 /HPF (0-3); SPECIFIC GRAVITY URINE AUTO 1.015 (1.002-1.035); SQUAMOUS EPITHELIAL CELL UR AU 0 /HPF (0-6); UROBILINOGEN, URINE AUTO 0.2 mg/dL (0.0-2.0); WBC, URINE AUTO 2 /HPF (0-3)
[2023-02-04 10:46] LABS: HEMATOCRIT 37.4 % (36.0-47.0); HEMOGLOBIN 13.6 g/dl (12.0-15.5); MEAN CORPUSCULAR HEMOGLOBIN 33.9 pg (27.0-33.0); MEAN CORPUSCULAR HGB CONC 36.4 g/dl (32.0-36.5); MEAN CORPUSCULAR VOLUME 93.3 fl (80.0-96.0); PLATELET COUNT, AUTOMATED 136 10^3/uL (150-450); RED BLOOD COUNT 4.01 10^6/uL (4.00-5.40); WHITE BLOOD COUNT 4.9 10^3/uL (4.0-10.0)
[2023-02-04 11:19] LABS: BLOOD UREA NITROGEN 7 MG/DL (9-23); CALCIUM LEVEL 8.4 MG/DL (8.3-10.6); CARBON DIOXIDE LEVEL 27 MMOL/L (20-31); CHLORIDE LEVEL 107 MMOL/L (98-107); CREATININE FOR GFR 0.53 MG/DL (0.55-1.30); GLOMERULAR FILTRATION RATE > 60.0 (>45); GLUCOSE, FASTING 280 MG/DL (74-106); POTASSIUM SERUM 3.9 MMOL/L (3.5-5.1); SODIUM LEVEL 141 MMOL/L (136-145)
== END ==
LOC: M RAD 09:50 → M LAB 09:50
PROVIDERS: ATTEND Physician Assistant
DX: Z01.818 Encounter for other preprocedural examination (principal)

== ENCOUNTER → 2023-02-09 | Outpatient (CLI) | payer MEDICARE ==
[2023-02-09 12:07] LABS: BASO # 0.1 10^3/uL (0.0-0.2); BASO % 1.4 % (0.0-1.0); EOS # 0.7 10^3/uL (0.0-0.5); EOS % 12.1 % (0.0-3.0); HEMATOCRIT 39.5 % (36.0-47.0); HEMOGLOBIN 13.7 g/dl (12.0-15.5); LYMPH # 1.8 10^3/uL (1.5-5.0); LYMPH % 31.4 % (24.0-44.0); MEAN CORPUSCULAR HEMOGLOBIN 33.4 pg (27.0-33.0); MEAN CORPUSCULAR HGB CONC 34.7 g/dl (32.0-36.5); MEAN CORPUSCULAR VOLUME 96.3 fl (80.0-96.0); MONO # 0.5 10^3/uL (0.0-0.8); MONO % 8.6 % (2.0-8.0); NEUTROPHILS # 2.6 10^3/uL (1.5-8.5); NEUTROPHILS % 46.3 % (36.0-66.0); PLATELET COUNT, AUTOMATED 152 10^3/uL (150-450); WHITE BLOOD COUNT 5.6 10^3/uL (4.0-10.0)
[2023-02-09 12:08] LABS: HEMOGLOBIN A1c 8.9 % (4.0-6.0)
[2023-02-09 12:23] LABS: ALBUMIN 3.5 G/DL (3.2-5.2)
[2023-02-09 12:30] LABS: PERCENT SATURATION 44.1 % (13.2-45.0)
[2023-02-09 12:32] LABS: FERRITIN 40.6 NG/ML (7.3-270.7)
== END ==
LOC: M LAB 11:13
PROVIDERS: ATTEND Physician Assistant
DX: M25.562 Pain in left knee (principal); M17.9 Osteoarthritis of knee, unspecified; Z01.818 Encounter for other preprocedural examination; Z79.899 Other long term (current) drug therapy

== ENCOUNTER 2023-02-11 13:19 | Day surgery (SDC) | payer MEDICARE ==
[~2023-02-11] VITALS: Ht 177.8 cm; Wt 102.8 kg
[~2023-02-11 13:19] MED LIST changes: -OXYB5TAB10 PO; +ceFAZolin SOD 2 GM in IV 1 EA IV ONE
[2023-02-11] MEDS ORDERED: INSULIN LISPRO (NovoLOG) PER UNIT SC PRN (14:15)
[2023-02-11] MEDS ORDERED: MIDAZOLAM INJ 2MG/2ML VIAL As Ordered ONE (14:18)
[2023-02-11] MEDS ORDERED: fentaNYL 100 MCG/2 ML INJECTION As Ordered ONE (14:19)
[2023-02-11] MEDS ORDERED: KETOROLAC 60MG 2ML VIAL As Ordered ONE (14:20)
[2023-02-11] MEDS ORDERED: LIDOCAINE 2% 100MG/5ML SDV (FOR ANES.) As Ordered ONE (14:20)
[2023-02-11] MEDS ORDERED: ONDANSETRON 4MG 2ML VIAL As Ordered ONE (14:20)
[2023-02-11] MEDS ORDERED: propofoL 200 MG/20 ML VIAL As Ordered ONE (14:20)
[2023-02-11] MEDS ORDERED: ISOVUE-300 61% 100ML VIAL As Ordered ONE (14:28)
[2023-02-11] MEDS ORDERED: GLYCOPYRROLATE INJ 0.2 MG/ML 2 ML VIAL As Ordered ONE (15:54)
[2023-02-11] MEDS ORDERED: OXYB5TAB10 PO (16:50)
[2023-02-11] MEDS ORDERED: OXYC1TAB23 PO (16:50)
[2023-02-11 17:02] VITALS: BP 145/70; TEMP 97.9; O2SAT 97
[2023-02-18 14:09] LABS: CA Oxalate Dihy 20 % (.); Ca Ox Monohydrate 80 % (.); Size 3x5 mm (.)
== END 2023-02-11 17:31 | disposition home or self-care (01) ==
LOC: M SDC 13:19
PROVIDERS: ATTEND Urology
DX: N13.2 Hydronephrosis with renal and ureteral calculous obstruction (principal); E11.9 Type 2 diabetes mellitus without complications; G47.30 Sleep apnea, unspecified; Z79.84 Long term (current) use of oral hypoglycemic drugs; Z79.899 Other long term (current) drug therapy; Z91.048 Other nonmedicinal substance allergy status; Z98.84 Bariatric surgery status; Z87.891 Personal history of nicotine dependence
CPT/HCPCS: 52356; 74420; 82365; C1769; C1894; C2617; J0690; J1100; J1815; J1885; J2250; J2405; J3010; Q9967

== ENCOUNTER → 2023-03-03 | Outpatient (REF) | payer MEDICARE ==
[~2023-03-03] MED LIST changes: +OXYB5TAB10 PO; -ceFAZolin SOD 2 GM in IV 1 EA IV ONE
[2023-03-03 17:58] LABS: APPEARANCE, URINE HAZY (CLEAR); BACTERIA, URINE AUTO NEGATIVE (NEGATIVE); BILIRUBIN, URINE AUTO NEGATIVE (NEGATIVE); BLOOD, URINE BLOOD 1+ (NEGATIVE); COLOR, URINE YELLOW (YELLOW); GLUCOSE, URINE (UA) AUTO 2+ mg/dL (NEGATIVE); KETONE, URINE AUTO TRACE mg/dL (NEGATIVE); LEUKOCYTE ESTERASE, URINE AUTO TRACE (NEGATIVE); MUCUS, URINE SMALL (NEGATIVE); NITRITE, URINE AUTO NEGATIVE (NEGATIVE); PROTEIN, URINE AUTO NEGATIVE (NEGATIVE); RBC, URINE AUTO 19 /HPF (0-3); SPECIFIC GRAVITY URINE AUTO 1.019 (1.002-1.035); SQUAMOUS EPITHELIAL CELL UR AU 1 /HPF (0-6); UROBILINOGEN, URINE AUTO 0.2 mg/dL (0.0-2.0); WBC, URINE AUTO 7 /HPF (0-3)
== END ==
LOC: M LAB REF 16:59
PROVIDERS: ATTEND Physician Assistant
DX: Z01.818 Encounter for other preprocedural examination (principal); Z79.899 Other long term (current) drug therapy

== ENCOUNTER → 2023-03-04 | Outpatient (CLI) | payer MEDICARE | LOC: M LAB 14:04 | PROVIDERS: ATTEND Orthopaedic Surgery Adult Reconstructive Orthopaedic Surgery | DX: Z01.818 Encounter for other preprocedural examination (principal); M17.9 Osteoarthritis of knee, unspecified; M25.562 Pain in left knee; Z79.899 Other long term (current) drug therapy ==

== ENCOUNTER → 2023-03-16 | Outpatient (CLI) | payer MEDICARE | LOC: M WHC 10:46 | PROVIDERS: ATTEND Internal Medicine | DX: Z12.31 Encounter for screening mammogram for malignant neoplasm of breast (principal); Z85.3 Personal history of malignant neoplasm of breast ==

== ENCOUNTER → 2023-05-25 | Outpatient (CLI) | payer MEDICARE ==
[~2023-05-25] MED LIST changes: -GABA-283 PO; +GABA-284 PO
== END ==
LOC: M WHC 12:23
PROVIDERS: ATTEND Internal Medicine
DX: Z79.811 Long term (current) use of aromatase inhibitors (principal); C50.412 Malignant neoplasm of upper-outer quadrant of left female breast

== ENCOUNTER → 2023-06-02 | Outpatient (REF) | payer MEDICARE ==
[~2023-06-02] MED LIST changes: +GLIP5TAB17 PO; -GLIP5TAB8 PO; -OXYB5TAB10 PO; +OXYB5TAB11 PO
[2023-06-02 19:02] LABS: APPEARANCE, URINE CLOUDY (CLEAR); BACTERIA, URINE AUTO 1+ (NEGATIVE); BILIRUBIN, URINE AUTO NEGATIVE (NEGATIVE); BLOOD, URINE BLOOD 3+ (NEGATIVE); COLOR, URINE AMBER (YELLOW); GLUCOSE, URINE (UA) AUTO 1+ mg/dL (NEGATIVE); KETONE, URINE AUTO TRACE mg/dL (NEGATIVE); LEUKOCYTE ESTERASE, URINE AUTO 3+ (NEGATIVE); MUCUS, URINE SMALL (NEGATIVE); NITRITE, URINE AUTO NEGATIVE (NEGATIVE); PROTEIN, URINE AUTO 2+ mg/dL (NEGATIVE); RBC, URINE AUTO 3 /HPF (0-3); SPECIFIC GRAVITY URINE AUTO 1.019 (1.002-1.035); SQUAMOUS EPITHELIAL CELL UR AU 23 /HPF (0-6); WBC, URINE AUTO 3 /HPF (0-3)
== END ==
LOC: M LAB REF 17:40
PROVIDERS: ATTEND Physician Assistant
DX: R41.82 Altered mental status, unspecified (principal)

== ENCOUNTER 2023-06-08 09:09 | Observation (INO) | payer MEDICARE ==
[~2023-06-08] VITALS: Ht 172.7 cm; Wt 104.0 kg
[2023-06-08 10:43] LABS: BASO # 0.1 10^3/uL (0.0-0.2); BASO % 1.3 % (0.0-1.0); EOS # 0.6 10^3/uL (0.0-0.5); EOS % 9.2 % (0.0-3.0); HEMATOCRIT 40.3 % (36.0-47.0); HEMOGLOBIN 14.3 g/dl (12.0-15.5); LYMPH # 1.6 10^3/uL (1.5-5.0); MEAN CORPUSCULAR HEMOGLOBIN 33.4 pg (27.0-33.0); MEAN CORPUSCULAR HGB CONC 35.5 g/dl (32.0-36.5); MEAN CORPUSCULAR VOLUME 94.2 fl (80.0-96.0); MONO # 0.6 10^3/uL (0.0-0.8); MONO % 8.3 % (2.0-8.0); NEUTROPHILS # 3.9 10^3/uL (1.5-8.5); NEUTROPHILS % 58.1 % (36.0-66.0); PLATELET COUNT, AUTOMATED 133 10^3/uL (150-450); RED BLOOD COUNT 4.28 10^6/uL (4.00-5.40); WHITE BLOOD COUNT 6.7 10^3/uL (4.0-10.0)
[2023-06-08 11:09] LABS: RSV AMPLIFICATION NEGATIVE (NEGATIVE)
[2023-06-08 11:10] LABS: ETHYL ALCOHOL (ETHANOL) < 0.003 % (0.000-0.010)
[2023-06-08 11:12] LABS: CPK CREATINE PHOSPHOKINASE 84 U/L (34-145); MB/CK RELATIVE INDEX 1.19 (< OR =4); SALICYLATE LEVEL < 3.0 MG/DL (<30)
[2023-06-08 11:13] LABS: ALBUMIN 3.3 G/DL (3.2-5.2); ALKALINE PHOSPHATASE 158 U/L (46-116); ALT/SGPT 47 U/L (7.0-40); AST/SGOT 37 U/L (<34); BILIRUBIN,DIRECT 0.5 MG/DL (<0.4); BILIRUBIN,TOTAL 1.1 MG/DL (0.3-1.2); BLOOD UREA NITROGEN 11 MG/DL (9-23); CALCIUM LEVEL 8.9 MG/DL (8.3-10.6); CARBON DIOXIDE LEVEL 30 MMOL/L (20-31); CHLORIDE LEVEL 106 MMOL/L (98-107); CREATININE FOR GFR 0.47 MG/DL (0.55-1.30); GLOMERULAR FILTRATION RATE > 60.0 (>45); GLUCOSE, FASTING 296 MG/DL (74-106); POTASSIUM SERUM 4.3 MMOL/L (3.5-5.1); SODIUM LEVEL 143 MMOL/L (136-145); TOTAL PROTEIN 7.4 G/DL (5.7-8.2)
[2023-06-08 11:14] LABS: THYROID STIMULATING HORMONE 1.621 uIU/ML (0.55-4.78)
[2023-06-08 12:01] LABS: CK-MB VALUE MASS < 1.0 NG/ML (<3.6)
[2023-06-08 12:08] LABS: CPK CREATINE PHOSPHOKINASE 85 U/L (34-145); MB/CK RELATIVE INDEX 1.17 (< OR =4)
[2023-06-08] MEDS ORDERED: MED REC IN PROGRESS XX SCH (13:15)
[2023-06-08] MEDS ORDERED: GLUCOSE 4GM CHEW TABLET PO PRN (14:15)
[2023-06-08] MEDS ORDERED: DEXTROSE 50% 50ML SYRINGE IV PRN (14:15)
[2023-06-08] MEDS ORDERED: GLUCAGON INJ 1MG VIAL SC PRN (14:15)
[2023-06-08 15:00] VITALS: BP 130/64; TEMP 97.3; O2SAT 97
[2023-06-08] MEDS ORDERED: HYDR-3713 PO (16:24)
[2023-06-08] MEDS ORDERED: VENTAER INH (16:24)
[2023-06-08] MEDS ORDERED: AMOX875T2 PO (16:24)
[2023-06-08] MEDS ORDERED: HOME MED LIST COMPLETE! XX SCH (16:25)
[2023-06-08 18:00] VITALS: BP 122/64; TEMP 98.1; O2SAT 95
[2023-06-08] MEDS: INSULIN LISPRO (NovoLOG) PER UNIT SC SCH ×2 (18:26→21:10)
[2023-06-08] MEDS: ENOXAPARIN 40MG/0.4ML SYRINGE (J1650 PER 10MG) SC SCH (18:27)
[2023-06-08] MEDS ORDERED: NORCO, ANEXSIA 5/325MG TABLET (HYDROcodone/ACETAMINOPHEN) PO PRN (19:25)
[2023-06-08] MEDS ORDERED: ALBUTEROL 90 MCG/ACT 8GM HFA INHALER INH PRN (19:25)
[2023-06-08 20:50] VITALS: BP 116/58; TEMP 96.8; O2SAT 94
[2023-06-08] MEDS ORDERED: LEVEMIR (INSULIN DETEMIR) 1 UNITS/0.01ML SC SCH (21:00)
[2023-06-08] MEDS: LEVEMIR (INSULIN DETEMIR) 1 UNITS/0.01ML SC SCH (21:10)
[2023-06-08] MEDS: CYANOCOBALAMIN 500 MCG TAB PO SCH (21:10)
[2023-06-08] MEDS: CETIRIZINE (ZyrTEC) 10 MG TAB PO SCH (21:10)
[2023-06-08] MEDS: DICYCLOMINE 10 MG CAP PO SCH (21:11)
[2023-06-08] MEDS: rifAXIMin 550 MG TAB (XIFAXAN) PO SCH (21:11)
[2023-06-08] MEDS: CYCLOBENZAPRINE 10MG TABLET PO SCH (21:11)
[2023-06-08] MEDS: MONTELUKAST 10 MG TAB PO SCH (21:11)
[2023-06-08] MEDS: SYMBICORT 160/4.5MCG INHALER 6GM INH SCH (21:53)
[2023-06-09] VITALS (8 sets, daily range): BP systolic 115–149; BP diastolic 58–74; TEMP 97–97.9; O2SAT 92–97
[2023-06-09 06:14] LABS: BASO # 0.1 10^3/uL (0.0-0.2); BASO % 1.4 % (0.0-1.0); EOS # 0.6 10^3/uL (0.0-0.5); EOS % 11.2 % (0.0-3.0); HEMATOCRIT 39.2 % (36.0-47.0); LYMPH # 1.8 10^3/uL (1.5-5.0); LYMPH % 31.8 % (24.0-44.0); MEAN CORPUSCULAR HEMOGLOBIN 33.5 pg (27.0-33.0); MEAN CORPUSCULAR HGB CONC 35.7 g/dl (32.0-36.5); MEAN CORPUSCULAR VOLUME 93.8 fl (80.0-96.0); MONO # 0.5 10^3/uL (0.0-0.8); MONO % 8.3 % (2.0-8.0); NEUTROPHILS # 2.6 10^3/uL (1.5-8.5); NEUTROPHILS % 47.3 % (36.0-66.0); PLATELET COUNT, AUTOMATED 136 10^3/uL (150-450); RED BLOOD COUNT 4.18 10^6/uL (4.00-5.40); WHITE BLOOD COUNT 5.6 10^3/uL (4.0-10.0)
[2023-06-09 06:39] LABS: ALKALINE PHOSPHATASE 135 U/L (46-116); ALT/SGPT 41 U/L (7.0-40); AST/SGOT 30 U/L (<34); BLOOD UREA NITROGEN 9 MG/DL (9-23); CALCIUM LEVEL 8.6 MG/DL (8.3-10.6); CARBON DIOXIDE LEVEL 29 MMOL/L (20-31); CHLORIDE LEVEL 109 MMOL/L (98-107); CREATININE FOR GFR 0.48 MG/DL (0.55-1.30); GLOMERULAR FILTRATION RATE > 60.0 (>45); GLUCOSE, FASTING 168 MG/DL (74-106); MAGNESIUM LEVEL 1.7 MG/DL (1.8-2.4); SODIUM LEVEL 144 MMOL/L (136-145); TOTAL PROTEIN 6.6 G/DL (5.7-8.2)
[2023-06-09] MEDS: SYMBICORT 160/4.5MCG INHALER 6GM INH SCH ×2 (07:27→19:36)
[2023-06-09] MEDS: buPROPion **XL** TABLET 150MG (WELLBUTRIN XL) PO SCH (09:06)
[2023-06-09] MEDS: PANTOPRAZOLE 40MG TAB (PROTONIX) PO SCH (09:06)
[2023-06-09] MEDS: SPIRONOLACTONE 25 MG TAB PO SCH (09:06)
[2023-06-09] MEDS: LACTULOSE 20GM/30ML SYRUP UDC PO SCH (09:06)
[2023-06-09] MEDS: rifAXIMin 550 MG TAB (XIFAXAN) PO SCH ×2 (09:06→20:45)
[2023-06-09] MEDS: DICYCLOMINE 10 MG CAP PO SCH ×2 (09:06→20:45)
[2023-06-09] MEDS: DULoxetine 30MG CAPSULE (CYMBALTA) PO SCH (09:06)
[2023-06-09] MEDS: ENOXAPARIN 40MG/0.4ML SYRINGE (J1650 PER 10MG) SC SCH (09:07)
[2023-06-09] MEDS: LEVEMIR (INSULIN DETEMIR) 1 UNITS/0.01ML SC SCH ×2 (09:07→20:44)
[2023-06-09] MEDS: INSULIN LISPRO (NovoLOG) PER UNIT SC SCH ×4 (09:07→20:45)
[2023-06-09] MEDS: MAGNESIUM OXIDE 400MG TAB (MAG-OX) PO SCH ×3 (10:35→20:45)
[2023-06-09] MEDS ORDERED: LACTULOSE 20GM/30ML SYRUP UDC PO ONE (15:25)
[2023-06-09] MEDS: SENNA 8.6 MG TAB (SENOKOT) PO PRN (17:06)
[2023-06-09] MEDS: MIRALAX *UNIT DOSE* 17GM PACKET PO PRN (17:07)
[2023-06-09] MEDS: MONTELUKAST 10 MG TAB PO SCH (20:45)
[2023-06-09] MEDS: CETIRIZINE (ZyrTEC) 10 MG TAB PO SCH (20:45)
[2023-06-09] MEDS: CYCLOBENZAPRINE 10MG TABLET PO SCH (20:45)
[2023-06-09] MEDS: CYANOCOBALAMIN 500 MCG TAB PO SCH (20:45)
[2023-06-10 06:00] VITALS: BP 140/73; TEMP 97.3; O2SAT 94
[2023-06-10] MEDS: SYMBICORT 160/4.5MCG INHALER 6GM INH SCH ×2 (07:53→19:31)
[2023-06-10] MEDS: INSULIN LISPRO (NovoLOG) PER UNIT SC SCH ×4 (08:23→21:50)
[2023-06-10] MEDS: LACTULOSE 20GM/30ML SYRUP UDC PO SCH (08:24)
[2023-06-10] MEDS: LEVEMIR (INSULIN DETEMIR) 1 UNITS/0.01ML SC SCH ×2 (08:24→21:49)
[2023-06-10] MEDS: MAGNESIUM OXIDE 400MG TAB (MAG-OX) PO SCH ×3 (08:25→21:47)
[2023-06-10] MEDS: rifAXIMin 550 MG TAB (XIFAXAN) PO SCH ×2 (08:25→21:48)
[2023-06-10] MEDS: buPROPion **XL** TABLET 150MG (WELLBUTRIN XL) PO SCH (08:25)
[2023-06-10] MEDS: PANTOPRAZOLE 40MG TAB (PROTONIX) PO SCH (08:25)
[2023-06-10] MEDS: DICYCLOMINE 10 MG CAP PO SCH ×2 (08:25→21:48)
[2023-06-10] MEDS: DULoxetine 30MG CAPSULE (CYMBALTA) PO SCH (08:26)
[2023-06-10] MEDS: SPIRONOLACTONE 25 MG TAB PO SCH (08:26)
[2023-06-10] MEDS: ENOXAPARIN 40MG/0.4ML SYRINGE (J1650 PER 10MG) SC SCH (08:26)
[2023-06-10 14:00] VITALS: BP 121/71; TEMP 97.5; O2SAT 95
[2023-06-10 21:00] VITALS: BP 126/59; TEMP 97.9; O2SAT 94
[2023-06-10] MEDS: CYANOCOBALAMIN 500 MCG TAB PO SCH (21:48)
[2023-06-10] MEDS: MONTELUKAST 10 MG TAB PO SCH (21:48)
[2023-06-10] MEDS: CETIRIZINE (ZyrTEC) 10 MG TAB PO SCH (21:48)
[2023-06-10] MEDS: CYCLOBENZAPRINE 10MG TABLET PO SCH (21:49)
[2023-06-11 05:20] VITALS: BP 124/60; TEMP 97.3; O2SAT 94
[2023-06-11] MEDS: SYMBICORT 160/4.5MCG INHALER 6GM INH SCH ×2 (07:31→19:16)
[2023-06-11] MEDS: LACTULOSE 20GM/30ML SYRUP UDC PO SCH ×3 (08:39→20:51)
[2023-06-11] MEDS: ENOXAPARIN 40MG/0.4ML SYRINGE (J1650 PER 10MG) SC SCH (08:39)
[2023-06-11] MEDS: LEVEMIR (INSULIN DETEMIR) 1 UNITS/0.01ML SC SCH ×2 (08:40→20:52)
[2023-06-11] MEDS: INSULIN LISPRO (NovoLOG) PER UNIT SC SCH ×5 (08:40→20:52)
[2023-06-11] MEDS: DULoxetine 30MG CAPSULE (CYMBALTA) PO SCH (08:41)
[2023-06-11] MEDS: PANTOPRAZOLE 40MG TAB (PROTONIX) PO SCH (08:41)
[2023-06-11] MEDS: rifAXIMin 550 MG TAB (XIFAXAN) PO SCH ×2 (08:41→20:49)
[2023-06-11] MEDS: buPROPion **XL** TABLET 150MG (WELLBUTRIN XL) PO SCH (08:41)
[2023-06-11] MEDS: MAGNESIUM OXIDE 400MG TAB (MAG-OX) PO SCH ×3 (08:41→20:51)
[2023-06-11] MEDS: DICYCLOMINE 10 MG CAP PO SCH ×2 (08:42→20:50)
[2023-06-11] MEDS: SPIRONOLACTONE 25 MG TAB PO SCH (08:42)
[2023-06-11 14:00] VITALS: BP 104/60; TEMP 97.3; O2SAT 18
[2023-06-11] MEDS: MIRALAX *UNIT DOSE* 17GM PACKET PO PRN (14:50)
[2023-06-11] MEDS: SENNA 8.6 MG TAB (SENOKOT) PO PRN (14:50)
[2023-06-11] MEDS: MONTELUKAST 10 MG TAB PO SCH (20:50)
[2023-06-11] MEDS: CETIRIZINE (ZyrTEC) 10 MG TAB PO SCH (20:50)
[2023-06-11] MEDS: CYANOCOBALAMIN 500 MCG TAB PO SCH (20:51)
[2023-06-11] MEDS: CYCLOBENZAPRINE 10MG TABLET PO SCH (20:53)
[2023-06-12 05:30] VITALS: BP 113/55; TEMP 97.6; O2SAT 94
[2023-06-12] MEDS: SYMBICORT 160/4.5MCG INHALER 6GM INH SCH ×2 (07:45→19:38)
[2023-06-12] MEDS: INSULIN LISPRO (NovoLOG) PER UNIT SC SCH ×4 (09:25→20:28)
[2023-06-12] MEDS: LEVEMIR (INSULIN DETEMIR) 1 UNITS/0.01ML SC SCH ×2 (09:26→20:28)
[2023-06-12] MEDS: ENOXAPARIN 40MG/0.4ML SYRINGE (J1650 PER 10MG) SC SCH (09:26)
[2023-06-12] MEDS: MAGNESIUM OXIDE 400MG TAB (MAG-OX) PO SCH ×3 (09:27→20:28)
[2023-06-12] MEDS: DICYCLOMINE 10 MG CAP PO SCH ×2 (09:27→20:27)
[2023-06-12] MEDS: DULoxetine 30MG CAPSULE (CYMBALTA) PO SCH (09:27)
[2023-06-12] MEDS: rifAXIMin 550 MG TAB (XIFAXAN) PO SCH ×2 (09:27→20:27)
[2023-06-12] MEDS: PANTOPRAZOLE 40MG TAB (PROTONIX) PO SCH (09:27)
[2023-06-12] MEDS: buPROPion **XL** TABLET 150MG (WELLBUTRIN XL) PO SCH (09:27)
[2023-06-12] MEDS: SPIRONOLACTONE 25 MG TAB PO SCH (09:28)
[2023-06-12] MEDS: LACTULOSE 20GM/30ML SYRUP UDC PO SCH ×3 (09:28→20:27)
[2023-06-12] MEDS: ACETAMINOPHEN 500 MG TAB PO PRN (12:50)
[2023-06-12] MEDS: CETIRIZINE (ZyrTEC) 10 MG TAB PO SCH (20:27)
[2023-06-12] MEDS: CYANOCOBALAMIN 500 MCG TAB PO SCH (20:27)
[2023-06-12] MEDS: MONTELUKAST 10 MG TAB PO SCH (20:27)
[2023-06-12] MEDS: CYCLOBENZAPRINE 10MG TABLET PO SCH (20:29)
[2023-06-13 05:20] VITALS: BP 125/60; TEMP 97.3; O2SAT 95
[2023-06-13] MEDS: SYMBICORT 160/4.5MCG INHALER 6GM INH SCH ×2 (07:21→19:53)
[2023-06-13] MEDS: INSULIN LISPRO (NovoLOG) PER UNIT SC SCH ×4 (07:56→20:48)
[2023-06-13 08:00] VITALS: BP 144/68; TEMP 97.3; O2SAT 97
[2023-06-13 08:22] VITALS: BP 120/58
[2023-06-13] MEDS: LACTULOSE 20GM/30ML SYRUP UDC PO SCH ×3 (08:57→20:46)
[2023-06-13] MEDS: LEVEMIR (INSULIN DETEMIR) 1 UNITS/0.01ML SC SCH ×2 (08:58→20:49)
[2023-06-13] MEDS: buPROPion **XL** TABLET 150MG (WELLBUTRIN XL) PO SCH (08:59)
[2023-06-13] MEDS: ENOXAPARIN 40MG/0.4ML SYRINGE (J1650 PER 10MG) SC SCH (08:59)
[2023-06-13] MEDS: DULoxetine 30MG CAPSULE (CYMBALTA) PO SCH (08:59)
[2023-06-13] MEDS: DICYCLOMINE 10 MG CAP PO SCH ×2 (08:59→20:45)
[2023-06-13] MEDS: SPIRONOLACTONE 25 MG TAB PO SCH (08:59)
[2023-06-13] MEDS: PANTOPRAZOLE 40MG TAB (PROTONIX) PO SCH (09:00)
[2023-06-13] MEDS: MAGNESIUM OXIDE 400MG TAB (MAG-OX) PO SCH ×3 (09:00→20:46)
[2023-06-13] MEDS: rifAXIMin 550 MG TAB (XIFAXAN) PO SCH ×2 (09:00→20:47)
[2023-06-13] MEDS ORDERED: CEPACOL LOZENGE PO PRN (12:05)
[2023-06-13] MEDS: MONTELUKAST 10 MG TAB PO SCH (20:46)
[2023-06-13] MEDS: CYCLOBENZAPRINE 10MG TABLET PO SCH (20:46)
[2023-06-13] MEDS: CYANOCOBALAMIN 500 MCG TAB PO SCH (20:46)
[2023-06-13] MEDS: CETIRIZINE (ZyrTEC) 10 MG TAB PO SCH (20:47)
[2023-06-13] MEDS: ACETAMINOPHEN 500 MG TAB PO PRN (20:50)
[2023-06-14 05:20] VITALS: BP 127/63; TEMP 97.2; O2SAT 93
[2023-06-14] MEDS: SYMBICORT 160/4.5MCG INHALER 6GM INH SCH ×2 (07:14→19:33)
[2023-06-14] MEDS: SPIRONOLACTONE 25 MG TAB PO SCH (09:42)
[2023-06-14] MEDS: DICYCLOMINE 10 MG CAP PO SCH ×2 (09:42→21:27)
[2023-06-14] MEDS: MAGNESIUM OXIDE 400MG TAB (MAG-OX) PO SCH ×3 (09:42→21:27)
[2023-06-14] MEDS: rifAXIMin 550 MG TAB (XIFAXAN) PO SCH ×2 (09:42→21:27)
[2023-06-14] MEDS: DULoxetine 30MG CAPSULE (CYMBALTA) PO SCH (09:42)
[2023-06-14] MEDS: PANTOPRAZOLE 40MG TAB (PROTONIX) PO SCH (09:42)
[2023-06-14] MEDS: buPROPion **XL** TABLET 150MG (WELLBUTRIN XL) PO SCH (09:42)
[2023-06-14] MEDS: LEVEMIR (INSULIN DETEMIR) 1 UNITS/0.01ML SC SCH ×2 (09:43→21:26)
[2023-06-14] MEDS: INSULIN LISPRO (NovoLOG) PER UNIT SC SCH ×4 (09:43→21:00)
[2023-06-14] MEDS: ENOXAPARIN 40MG/0.4ML SYRINGE (J1650 PER 10MG) SC SCH (09:43)
[2023-06-14] MEDS: LACTULOSE 20GM/30ML SYRUP UDC PO SCH ×3 (09:43→21:41)
[2023-06-14] MEDS: ANASTRAZOLE 1MG TABLET (PATIENT'S OWN MED) PO SCH (12:24)
[2023-06-14] MEDS: MONTELUKAST 10 MG TAB PO SCH (21:26)
[2023-06-14] MEDS: CYCLOBENZAPRINE 10MG TABLET PO SCH (21:27)
[2023-06-14] MEDS: CETIRIZINE (ZyrTEC) 10 MG TAB PO SCH (21:27)
[2023-06-14] MEDS: CYANOCOBALAMIN 500 MCG TAB PO SCH (21:27)
[2023-06-14] MEDS: ACETAMINOPHEN 325 MG TAB PO PRN (21:27)
[2023-06-15 05:30] VITALS: BP 134/66; TEMP 97.9; O2SAT 95
[2023-06-15] MEDS: SYMBICORT 160/4.5MCG INHALER 6GM INH SCH ×2 (07:36→19:55)
[2023-06-15] MEDS: ANASTRAZOLE 1MG TABLET (PATIENT'S OWN MED) PO SCH (08:49)
[2023-06-15] MEDS: LACTULOSE 20GM/30ML SYRUP UDC PO SCH ×3 (08:49→20:34)
[2023-06-15] MEDS: INSULIN LISPRO (NovoLOG) PER UNIT SC SCH ×4 (08:50→20:33)
[2023-06-15] MEDS: buPROPion **XL** TABLET 150MG (WELLBUTRIN XL) PO SCH (08:50)
[2023-06-15] MEDS: LEVEMIR (INSULIN DETEMIR) 1 UNITS/0.01ML SC SCH ×2 (08:50→20:32)
[2023-06-15] MEDS: DICYCLOMINE 10 MG CAP PO SCH ×2 (08:50→20:33)
[2023-06-15] MEDS: PANTOPRAZOLE 40MG TAB (PROTONIX) PO SCH (08:50)
[2023-06-15] MEDS: DULoxetine 30MG CAPSULE (CYMBALTA) PO SCH (08:50)
[2023-06-15] MEDS: SPIRONOLACTONE 25 MG TAB PO SCH (08:50)
[2023-06-15] MEDS: rifAXIMin 550 MG TAB (XIFAXAN) PO SCH ×2 (08:51→20:33)
[2023-06-15] MEDS: ENOXAPARIN 40MG/0.4ML SYRINGE (J1650 PER 10MG) SC SCH (08:51)
[2023-06-15] MEDS: MAGNESIUM OXIDE 400MG TAB (MAG-OX) PO SCH ×3 (08:51→20:33)
[2023-06-15] MEDS: MONTELUKAST 10 MG TAB PO SCH (20:33)
[2023-06-15] MEDS: CETIRIZINE (ZyrTEC) 10 MG TAB PO SCH (20:33)
[2023-06-15] MEDS: CYANOCOBALAMIN 500 MCG TAB PO SCH (20:33)
[2023-06-15] MEDS: CYCLOBENZAPRINE 10MG TABLET PO SCH (20:34)
[2023-06-15] MEDS: ACETAMINOPHEN 325 MG TAB PO PRN (20:35)
[2023-06-16 05:23] VITALS: BP 124/64; TEMP 97.3; O2SAT 96
[2023-06-16] MEDS: SYMBICORT 160/4.5MCG INHALER 6GM INH SCH ×2 (07:19→19:42)
[2023-06-16] MEDS: INSULIN LISPRO (NovoLOG) PER UNIT SC SCH ×4 (08:01→20:21)
[2023-06-16] MEDS: LEVEMIR (INSULIN DETEMIR) 1 UNITS/0.01ML SC SCH ×2 (08:02→20:34)
[2023-06-16] MEDS: DULoxetine 30MG CAPSULE (CYMBALTA) PO SCH (09:23)
[2023-06-16] MEDS: LACTULOSE 20GM/30ML SYRUP UDC PO SCH ×3 (09:23→20:30)
[2023-06-16] MEDS: DICYCLOMINE 10 MG CAP PO SCH ×2 (09:24→20:30)
[2023-06-16] MEDS: MAGNESIUM OXIDE 400MG TAB (MAG-OX) PO SCH ×3 (09:24→20:30)
[2023-06-16] MEDS: PANTOPRAZOLE 40MG TAB (PROTONIX) PO SCH (09:26)
[2023-06-16] MEDS: buPROPion **XL** TABLET 150MG (WELLBUTRIN XL) PO SCH (09:26)
[2023-06-16] MEDS: rifAXIMin 550 MG TAB (XIFAXAN) PO SCH ×2 (09:26→20:30)
[2023-06-16] MEDS: ENOXAPARIN 40MG/0.4ML SYRINGE (J1650 PER 10MG) SC SCH (09:27)
[2023-06-16] MEDS: SPIRONOLACTONE 25 MG TAB PO SCH (09:36)
[2023-06-16] MEDS: ANASTRAZOLE 1MG TABLET (PATIENT'S OWN MED) PO SCH (09:36)
[2023-06-16] MEDS: MONTELUKAST 10 MG TAB PO SCH (20:30)
[2023-06-16] MEDS: CETIRIZINE (ZyrTEC) 10 MG TAB PO SCH (20:30)
[2023-06-16] MEDS: CYCLOBENZAPRINE 10MG TABLET PO SCH (20:31)
[2023-06-16] MEDS: CYANOCOBALAMIN 500 MCG TAB PO SCH (20:31)
[2023-06-16] MEDS: ACETAMINOPHEN 325 MG TAB PO PRN (22:05)
[2023-06-17 05:40] VITALS: BP 144/70; TEMP 97.5; O2SAT 94
[2023-06-17] MEDS: INSULIN LISPRO (NovoLOG) PER UNIT SC SCH ×4 (07:49→20:39)
[2023-06-17] MEDS: SYMBICORT 160/4.5MCG INHALER 6GM INH SCH ×2 (08:01→19:44)
[2023-06-17] MEDS: DICYCLOMINE 10 MG CAP PO SCH ×2 (09:26→20:56)
[2023-06-17] MEDS: rifAXIMin 550 MG TAB (XIFAXAN) PO SCH ×2 (09:27→20:56)
[2023-06-17] MEDS: DULoxetine 30MG CAPSULE (CYMBALTA) PO SCH (09:27)
[2023-06-17] MEDS: LACTULOSE 20GM/30ML SYRUP UDC PO SCH ×3 (09:27→20:57)
[2023-06-17] MEDS: buPROPion **XL** TABLET 150MG (WELLBUTRIN XL) PO SCH (09:27)
[2023-06-17] MEDS: PANTOPRAZOLE 40MG TAB (PROTONIX) PO SCH (09:28)
[2023-06-17] MEDS: ENOXAPARIN 40MG/0.4ML SYRINGE (J1650 PER 10MG) SC SCH (09:28)
[2023-06-17] MEDS: MAGNESIUM OXIDE 400MG TAB (MAG-OX) PO SCH ×3 (09:28→20:56)
[2023-06-17] MEDS: SPIRONOLACTONE 25 MG TAB PO SCH (09:28)
[2023-06-17] MEDS: ANASTRAZOLE 1MG TABLET (PATIENT'S OWN MED) PO SCH (09:30)
[2023-06-17] MEDS: LEVEMIR (INSULIN DETEMIR) 1 UNITS/0.01ML SC SCH ×2 (09:37→20:55)
[2023-06-17] MEDS: CLOTRIMAZOLE 1% TOPICAL CREAM 30GM TOP SCH ×2 (17:23→20:58)
[2023-06-17] MEDS: CYCLOBENZAPRINE 10MG TABLET PO SCH (20:56)
[2023-06-17] MEDS: MONTELUKAST 10 MG TAB PO SCH (20:56)
[2023-06-17] MEDS: CYANOCOBALAMIN 500 MCG TAB PO SCH (20:56)
[2023-06-17] MEDS: CETIRIZINE (ZyrTEC) 10 MG TAB PO SCH (20:56)
[2023-06-18 05:30] VITALS: BP 143/82; TEMP 97.7; O2SAT 97
[2023-06-18] MEDS: INSULIN LISPRO (NovoLOG) PER UNIT SC SCH ×4 (07:35→21:02)
[2023-06-18] MEDS: SYMBICORT 160/4.5MCG INHALER 6GM INH SCH ×2 (07:43→19:41)
[2023-06-18] MEDS: ANASTRAZOLE 1MG TABLET (PATIENT'S OWN MED) PO SCH (09:00)
[2023-06-18] MEDS: LEVEMIR (INSULIN DETEMIR) 1 UNITS/0.01ML SC SCH ×2 (10:01→21:02)
[2023-06-18] MEDS: ENOXAPARIN 40MG/0.4ML SYRINGE (J1650 PER 10MG) SC SCH (10:01)
[2023-06-18] MEDS: CLOTRIMAZOLE 1% TOPICAL CREAM 30GM TOP SCH ×3 (10:02→21:08)
[2023-06-18] MEDS: LACTULOSE 20GM/30ML SYRUP UDC PO SCH ×3 (10:03→21:01)
[2023-06-18] MEDS: buPROPion **XL** TABLET 150MG (WELLBUTRIN XL) PO SCH (10:03)
[2023-06-18] MEDS: MAGNESIUM OXIDE 400MG TAB (MAG-OX) PO SCH ×3 (10:03→21:05)
[2023-06-18] MEDS: SPIRONOLACTONE 25 MG TAB PO SCH (10:03)
[2023-06-18] MEDS: rifAXIMin 550 MG TAB (XIFAXAN) PO SCH ×2 (10:04→21:03)
[2023-06-18] MEDS: PANTOPRAZOLE 40MG TAB (PROTONIX) PO SCH (10:04)
[2023-06-18] MEDS: DICYCLOMINE 10 MG CAP PO SCH ×2 (10:04→21:02)
[2023-06-18] MEDS: DULoxetine 30MG CAPSULE (CYMBALTA) PO SCH (10:04)
[2023-06-18] MEDS: CYCLOBENZAPRINE 10MG TABLET PO SCH (21:03)
[2023-06-18] MEDS: CETIRIZINE (ZyrTEC) 10 MG TAB PO SCH (21:05)
[2023-06-18] MEDS: CYANOCOBALAMIN 500 MCG TAB PO SCH (21:05)
[2023-06-18] MEDS: MONTELUKAST 10 MG TAB PO SCH (21:05)
[2023-06-19 06:00] VITALS: BP 138/70; TEMP 97.5; O2SAT 92
[2023-06-19] MEDS: SYMBICORT 160/4.5MCG INHALER 6GM INH SCH (08:00)
[2023-06-19] MEDS: INSULIN LISPRO (NovoLOG) PER UNIT SC SCH ×2 (08:13→11:49)
[2023-06-19] MEDS: ENOXAPARIN 40MG/0.4ML SYRINGE (J1650 PER 10MG) SC SCH (08:14)
[2023-06-19] MEDS: LEVEMIR (INSULIN DETEMIR) 1 UNITS/0.01ML SC SCH (08:14)
[2023-06-19] MEDS: MAGNESIUM OXIDE 400MG TAB (MAG-OX) PO SCH (08:15)
[2023-06-19] MEDS: LACTULOSE 20GM/30ML SYRUP UDC PO SCH (08:15)
[2023-06-19] MEDS: SPIRONOLACTONE 25 MG TAB PO SCH (08:15)
[2023-06-19] MEDS: DICYCLOMINE 10 MG CAP PO SCH (08:16)
[2023-06-19] MEDS: rifAXIMin 550 MG TAB (XIFAXAN) PO SCH (08:16)
[2023-06-19] MEDS: buPROPion **XL** TABLET 150MG (WELLBUTRIN XL) PO SCH (08:16)
[2023-06-19] MEDS: PANTOPRAZOLE 40MG TAB (PROTONIX) PO SCH (08:16)
[2023-06-19] MEDS: DULoxetine 30MG CAPSULE (CYMBALTA) PO SCH (08:16)
[2023-06-19] MEDS: ANASTRAZOLE 1MG TABLET (PATIENT'S OWN MED) PO SCH (08:17)
[2023-06-19] MEDS: CLOTRIMAZOLE 1% TOPICAL CREAM 30GM TOP SCH (08:18)
[2023-06-19] MEDS ORDERED: XIFA550T PO (10:25)
[2023-06-19] MEDS ORDERED: FLUZONE HIGH DOSE(65YR UP)QUAD/PF 240MCG/0.7ML SYRINGE IM.IMMUN ONE (13:00)
== END 2023-06-19 13:49 | disposition home health service (06) ==
LOC: M ED 09:09 → M ED INP 09:10 → M MSPAV 14:59
PROVIDERS: ADMIT Internal Medicine; ATTEND Internal Medicine
DX: K76.82 Hepatic encephalopathy (principal); K74.60 Unspecified cirrhosis of liver; K75.81 Nonalcoholic steatohepatitis (NASH); S00.83XA Contusion of other part of head, initial encounter; Y92.000 Kitchen of unspecified non-institutional (private) residence as the place of occurrence of the external cause; Y93.89 Activity, other specified; Y99.8 Other external cause status; R42 Dizziness and giddiness; E11.40 Type 2 diabetes mellitus with diabetic neuropathy, unspecified; J45.40 Moderate persistent asthma, uncomplicated; Z85.3 Personal history of malignant neoplasm of breast; Z92.3 Personal history of irradiation; R32 Unspecified urinary incontinence; R41.3 Other amnesia; Z87.442 Personal history of urinary calculi; E66.01 Morbid (severe) obesity due to excess calories; Z98.84 Bariatric surgery status; F32.A Depression, unspecified; I10 Essential (primary) hypertension; M54.50 Low back pain, unspecified; G89.29 Other chronic pain; R26.81 Unsteadiness on feet; Z88.8 Allergy status to other drugs, medicaments and biological substances; Z91.048 Other nonmedicinal substance allergy status; Z79.899 Other long term (current) drug therapy; Z79.4 Long term (current) use of insulin; Z79.51 Long term (current) use of inhaled steroids; Z79.84 Long term (current) use of oral hypoglycemic drugs; Z80.1 Family history of malignant neoplasm of trachea, bronchus and lung

== ENCOUNTER → 2023-06-24 | Outpatient (CLI) | payer MEDICARE ==
[~2023-06-24] MED LIST changes: +VENTAER INH
[2023-06-24 09:09] LABS: BASO # 0.1 10^3/uL (0.0-0.2); BASO % 1.2 % (0.0-1.0); EOS # 0.7 10^3/uL (0.0-0.5); EOS % 11.3 % (0.0-3.0); HEMATOCRIT 42.4 % (36.0-47.0); HEMOGLOBIN 14.7 g/dl (12.0-15.5); LYMPH # 1.6 10^3/uL (1.5-5.0); LYMPH % 26.8 % (24.0-44.0); MEAN CORPUSCULAR HEMOGLOBIN 33.5 pg (27.0-33.0); MEAN CORPUSCULAR HGB CONC 34.7 g/dl (32.0-36.5); MEAN CORPUSCULAR VOLUME 96.6 fl (80.0-96.0); MONO # 0.5 10^3/uL (0.0-0.8); MONO % 8.3 % (2.0-8.0); NEUTROPHILS # 3.1 10^3/uL (1.5-8.5); NEUTROPHILS % 52.1 % (36.0-66.0); PLATELET COUNT, AUTOMATED 151 10^3/uL (150-450); RED BLOOD COUNT 4.39 10^6/uL (4.00-5.40); WHITE BLOOD COUNT 5.9 10^3/uL (4.0-10.0)
[2023-06-24 09:13] LABS: INR 1.21; PROTHROMBIN TIME 14.9 SECONDS (12.5-14.5)
[2023-06-24 09:19] LABS: ALBUMIN 3.1 G/DL (3.2-5.2); ALKALINE PHOSPHATASE 129 U/L (46-116); ALT/SGPT 38 U/L (7.0-40); AST/SGOT 37 U/L (<34); BILIRUBIN,DIRECT 0.4 MG/DL (<0.4); BILIRUBIN,TOTAL 1.1 MG/DL (0.3-1.2); BLOOD UREA NITROGEN 9 MG/DL (9-23); CALCIUM LEVEL 8.7 MG/DL (8.3-10.6); CARBON DIOXIDE LEVEL 31 MMOL/L (20-31); CHLORIDE LEVEL 111 MMOL/L (98-107); CREATININE FOR GFR 0.56 MG/DL (0.55-1.30); GLOMERULAR FILTRATION RATE > 60.0 (>45); GLUCOSE, FASTING 151 MG/DL (74-106); SODIUM LEVEL 148 MMOL/L (136-145); TOTAL PROTEIN 7.2 G/DL (5.7-8.2)
[2023-06-24 09:21] LABS: FREE T4 0.62 NG/DL (0.89-1.76); THYROID STIMULATING HORMONE 2.173 uIU/ML (0.55-4.78)
[2023-06-24 09:27] LABS: HEMOGLOBIN A1c 8.8 % (4.0-6.0)
== END ==
LOC: M LAB 08:29
PROVIDERS: ATTEND Physician Assistant
DX: K74.69 Other cirrhosis of liver (principal); E11.65 Type 2 diabetes mellitus with hyperglycemia

== ENCOUNTER → 2023-08-06 | Outpatient (REF) | payer MEDICARE ==
[2023-08-06 16:22] LABS: APPEARANCE, URINE HAZY (CLEAR); BACTERIA, URINE AUTO NEGATIVE (NEGATIVE); BILIRUBIN, URINE AUTO NEGATIVE (NEGATIVE); BLOOD, URINE BLOOD NEGATIVE (NEGATIVE); COLOR, URINE YELLOW (YELLOW); GLUCOSE, URINE (UA) AUTO NEGATIVE (NEGATIVE); KETONE, URINE AUTO NEGATIVE (NEGATIVE); LEUKOCYTE ESTERASE, URINE AUTO 2+ (NEGATIVE); MUCUS, URINE SMALL (NEGATIVE); NITRITE, URINE AUTO NEGATIVE (NEGATIVE); PROTEIN, URINE AUTO NEGATIVE (NEGATIVE); RBC, URINE AUTO 0 /HPF (0-3); SPECIFIC GRAVITY URINE AUTO 1.016 (1.002-1.035); SQUAMOUS EPITHELIAL CELL UR AU 1 /HPF (0-6); WBC, URINE AUTO 6 /HPF (0-3)
== END ==
LOC: M SMT 15:25
PROVIDERS: ATTEND Urology
DX: R32 Unspecified urinary incontinence (principal)

== ENCOUNTER → 2023-10-27 | Outpatient (CLI) | payer MEDICARE ==
[~2023-10-27] MED LIST changes: +IRBE300T25 PO; -IRBE300T7 PO; -OXYB5TAB11 PO; +OXYB5TAB14 PO
[2023-10-27 10:43] LABS: BASO # 0.1 10^3/uL (0.0-0.2); BASO % 2.4 % (0.0-1.0); EOS # 0.7 10^3/uL (0.0-0.5); HEMOGLOBIN 14.3 g/dl (12.0-15.5); LYMPH # 1.6 10^3/uL (1.5-5.0); LYMPH % 27.8 % (24.0-44.0); MEAN CORPUSCULAR HEMOGLOBIN 33.2 pg (27.0-33.0); MEAN CORPUSCULAR VOLUME 97.4 fl (80.0-96.0); MONO # 0.5 10^3/uL (0.0-0.8); MONO % 7.9 % (2.0-8.0); NEUTROPHILS # 2.9 10^3/uL (1.5-8.5); NEUTROPHILS % 49.7 % (36.0-66.0); PLATELET COUNT, AUTOMATED 161 10^3/uL (150-450); RED BLOOD COUNT 4.31 10^6/uL (4.00-5.40); WHITE BLOOD COUNT 5.8 10^3/uL (4.0-10.0)
[2023-10-27 10:53] LABS: INR 1.15; PROTHROMBIN TIME 14.4 SECONDS (12.5-14.5)
[2023-10-27 11:13] LABS: HEMOGLOBIN A1c 7.1 % (4.0-6.0)
[2023-10-27 11:15] LABS: ALBUMIN 3.1 G/DL (3.2-5.2); ALKALINE PHOSPHATASE 107 U/L (46-116); ALT/SGPT 71 U/L (7.0-40); AST/SGOT 63 U/L (<34); BILIRUBIN,TOTAL 0.9 MG/DL (0.3-1.2); BLOOD UREA NITROGEN 10 MG/DL (9-23); CALCIUM LEVEL 8.4 MG/DL (8.3-10.6); CARBON DIOXIDE LEVEL 31 MMOL/L (20-31); CHLORIDE LEVEL 109 MMOL/L (98-107); CREATININE, URINE 96.9 MG/DL; GLOMERULAR FILTRATION RATE > 60.0 (>45); GLUCOSE, FASTING 148 MG/DL (74-106); MAU/CREAT RATIO 20.6 MCG/MG (0.0-30.0); SODIUM LEVEL 145 MMOL/L (136-145)
== END ==
LOC: M LAB 09:30
PROVIDERS: ATTEND Physician Assistant
DX: E11.65 Type 2 diabetes mellitus with hyperglycemia (principal); K74.69 Other cirrhosis of liver

== ENCOUNTER → 2023-10-27 | Outpatient (CLI) | payer MEDICARE | LOC: M RAD 09:26 | PROVIDERS: ATTEND Urology | DX: N20.0 Calculus of kidney (principal) ==

== ENCOUNTER → 2024-01-04 | Outpatient (CLI) | payer MEDICARE ==
[~2024-01-04] MED LIST changes: +BUPR-597 PO; -BUPR300T92 PO
[2024-01-04 10:40] LABS: BASO # 0.1 10^3/uL (0.0-0.2); BASO % 1.9 % (0.0-1.0); EOS # 0.7 10^3/uL (0.0-0.5); EOS % 11.8 % (0.0-3.0); HEMATOCRIT 40.1 % (36.0-47.0); HEMOGLOBIN 13.9 g/dl (12.0-15.5); LYMPH # 1.7 10^3/uL (1.5-5.0); LYMPH % 29.5 % (24.0-44.0); MEAN CORPUSCULAR HEMOGLOBIN 33.6 pg (27.0-33.0); MEAN CORPUSCULAR HGB CONC 34.7 g/dl (32.0-36.5); MEAN CORPUSCULAR VOLUME 96.9 fl (80.0-96.0); MONO # 0.6 10^3/uL (0.0-0.8); NEUTROPHILS # 2.7 10^3/uL (1.5-8.5); NEUTROPHILS % 46.4 % (36.0-66.0); PLATELET COUNT, AUTOMATED 150 10^3/uL (150-450); RED BLOOD COUNT 4.14 10^6/uL (4.00-5.40); WHITE BLOOD COUNT 5.7 10^3/uL (4.0-10.0)
[2024-01-04 10:49] LABS: INR 1.19; PROTHROMBIN TIME 14.8 SECONDS (12.5-14.5)
[2024-01-04 11:01] LABS: HEMOGLOBIN A1c 6.4 % (4.0-6.0)
[2024-01-04 11:05] LABS: ALBUMIN 3.1 G/DL (3.2-5.2); ALKALINE PHOSPHATASE 122 U/L (46-116); ALT/SGPT 101 U/L (7.0-40); AST/SGOT 96 U/L (<34); BILIRUBIN,DIRECT 0.4 MG/DL (<0.4); BILIRUBIN,TOTAL 0.9 MG/DL (0.3-1.2); BLOOD UREA NITROGEN 5 MG/DL (9-23); CALCIUM LEVEL 9.2 MG/DL (8.3-10.6); CARBON DIOXIDE LEVEL 30 MMOL/L (20-31); CHLORIDE LEVEL 108 MMOL/L (98-107); CREATININE FOR GFR 0.55 MG/DL (0.55-1.30); GLOMERULAR FILTRATION RATE > 60.0 (>45); GLUCOSE, FASTING 107 MG/DL (74-106); POTASSIUM SERUM 4.3 MMOL/L (3.5-5.1); SODIUM LEVEL 145 MMOL/L (136-145); TOTAL PROTEIN 7.1 G/DL (5.7-8.2)
== END ==
LOC: M LAB 09:35
PROVIDERS: ATTEND Physician Assistant
DX: E11.65 Type 2 diabetes mellitus with hyperglycemia (principal); K74.69 Other cirrhosis of liver

== ENCOUNTER → 2024-04-19 | Outpatient (CLI) | payer MEDICARE ==
[~2024-04-19] MED LIST changes: +BYST1TAB2 PO; -BYST5TAB2 PO; +ONDA-282 PO; -ONDA4TAB6 PO
== END ==
LOC: M WHC 10:04
PROVIDERS: ATTEND Internal Medicine
DX: Z12.31 Encounter for screening mammogram for malignant neoplasm of breast (principal)

== ENCOUNTER → 2024-04-28 | Outpatient (CLI) | payer MEDICARE ==
[2024-04-28 13:51] LABS: BASO # 0.1 10^3/uL (0.0-0.2); BASO % 1.5 % (0.0-1.0); EOS # 0.7 10^3/uL (0.0-0.5); EOS % 14.1 % (0.0-3.0); HEMATOCRIT 38.7 % (36.0-47.0); HEMOGLOBIN 13.4 g/dl (12.0-15.5); LYMPH # 1.5 10^3/uL (1.5-5.0); LYMPH % 31.3 % (24.0-44.0); MEAN CORPUSCULAR HEMOGLOBIN 33.8 pg (27.0-33.0); MEAN CORPUSCULAR HGB CONC 34.6 g/dl (32.0-36.5); MEAN CORPUSCULAR VOLUME 97.7 fl (80.0-96.0); MONO # 0.4 10^3/uL (0.0-0.8); NEUTROPHILS # 2.1 10^3/uL (1.5-8.5); NEUTROPHILS % 43.9 % (36.0-66.0); PLATELET COUNT, AUTOMATED 131 10^3/uL (150-450); RED BLOOD COUNT 3.96 10^6/uL (4.00-5.40); WHITE BLOOD COUNT 4.7 10^3/uL (4.0-10.0)
[2024-04-28 14:03] LABS: HEMOGLOBIN A1c 7.4 % (4.0-6.0)
[2024-04-28 14:18] LABS: ALKALINE PHOSPHATASE 108 U/L (46-116); ALT/SGPT 59 U/L (7.0-40); AST/SGOT 56 U/L (<34); BILIRUBIN,DIRECT 0.4 MG/DL (<0.4); BLOOD UREA NITROGEN 7 MG/DL (9-23); CARBON DIOXIDE LEVEL 29 MMOL/L (20-31); CHLORIDE LEVEL 111 MMOL/L (98-107); CREATININE FOR GFR 0.57 MG/DL (0.55-1.30); GLOMERULAR FILTRATION RATE > 60.0 (>45); GLUCOSE, FASTING 85 MG/DL (74-106); POTASSIUM SERUM 3.9 MMOL/L (3.5-5.1); SODIUM LEVEL 145 MMOL/L (136-145)
== END ==
LOC: M LAB 11:38
PROVIDERS: ATTEND Physician Assistant
DX: E11.65 Type 2 diabetes mellitus with hyperglycemia (principal)

== ENCOUNTER → 2024-04-29 | Outpatient (CLI) | payer MEDICARE ==
[2024-04-29 14:46] LABS: INR 1.14; PROTHROMBIN TIME 14.3 SECONDS (12.5-14.5)
[2024-04-29 14:57] LABS: ALBUMIN 3.1 G/DL (3.2-5.2); BILIRUBIN,DIRECT 0.3 MG/DL (<0.4); BILIRUBIN,TOTAL 0.7 MG/DL (0.3-1.2); TOTAL PROTEIN 7.1 G/DL (5.7-8.2)
[2024-05-06 16:48] LABS: ALPHA 2-MACROGLOBULINS,QN 370 mg/dL (106-279); ALT (SGPT) P5P 44 U/L (6-29); APOLIPOPROTEIN A-1 144 mg/dL (101-198); BILIRUBIN, TOTAL 0.6 mg/dL (0.2-1.2); FIBROSIS SCORE 0.89; FIBROSIS STAGE SEVERE FIBROSIS (F0); GGT 56 U/L (3-65); HAPTOGLOBIN 10 mg/dL (43-212); NECROINFLAM ACT GRADE MINIMAL ACTIVITY (A0); NECROINFLAM ACT SCORE 0.45
== END ==
LOC: M LAB 13:59
PROVIDERS: ATTEND Physician Assistant
DX: K74.69 Other cirrhosis of liver (principal)

== ENCOUNTER → 2024-05-13 | Outpatient (CLI) | payer MEDICARE | LOC: M PLAIMG 13:17 | PROVIDERS: ATTEND Nurse Practitioner Family | DX: M54.59 Other low back pain (principal) ==

== ENCOUNTER → 2024-08-01 | Outpatient (CLI) | payer MEDICAID, MEDICARE ==
[~2024-08-01] MED LIST changes: +GLIP10TA15 PO; -GLIP10TA6 PO; -LACT10SO3 PO; +LACT10SO94 PO
[2024-08-01 13:06] LABS: BASO # 0.1 10^3/uL (0.0-0.2); BASO % 1.3 % (0.0-1.0); EOS # 0.6 10^3/uL (0.0-0.5); EOS % 11.8 % (0.0-3.0); HEMATOCRIT 38.1 % (36.0-47.0); HEMOGLOBIN 13.2 g/dl (12.0-15.5); LYMPH # 1.6 10^3/uL (1.5-5.0); LYMPH % 29.7 % (24.0-44.0); MEAN CORPUSCULAR HGB CONC 34.6 g/dl (32.0-36.5); MEAN CORPUSCULAR VOLUME 95.3 fl (80.0-96.0); MONO # 0.5 10^3/uL (0.0-0.8); MONO % 8.9 % (2.0-8.0); NEUTROPHILS # 2.6 10^3/uL (1.5-8.5); NEUTROPHILS % 47.9 % (36.0-66.0); PLATELET COUNT, AUTOMATED 150 10^3/uL (150-450); WHITE BLOOD COUNT 5.4 10^3/uL (4.0-10.0)
[2024-08-01 13:15] LABS: INR 1.2; PROTHROMBIN TIME 15.5 SECONDS (12.5-14.5)
[2024-08-01 13:33] LABS: TOTAL IRON BINDING CAPACITY 239 UG/DL (250-425)
[2024-08-01 13:34] LABS: ALBUMIN 2.8 G/DL (3.2-5.2); ALKALINE PHOSPHATASE 100 U/L (35-104); ALT/SGPT 46 U/L (7.0-40); AST/SGOT 54 U/L (<34); BILIRUBIN,TOTAL 0.8 MG/DL (0.3-1.2); BLOOD UREA NITROGEN 7 MG/DL (9-23); CALCIUM LEVEL 9.5 MG/DL (8.3-10.6); CARBON DIOXIDE LEVEL 26 MMOL/L (20-31); CHLORIDE LEVEL 113 MMOL/L (98-107); CHOLESTEROL LEVEL 110 MG/DL (<200); CHOLESTEROL RISK RATIO 2.94 (<5); CREATININE FOR GFR 0.56 MG/DL (0.55-1.30); GLOMERULAR FILTRATION RATE > 60.0 (>45); GLUCOSE, FASTING 248 MG/DL (74-106); HDL CHOLESTEROL 37.4 MG/DL (>40); IRON (FE) 162 UG/DL (50-170); LDL CHOLESTEROL 50.8 MG/DL (<100); NON-HDL-C 72.6 MG/DL; PERCENT SATURATION 67.8 % (13.2-45.0); POTASSIUM SERUM 3.9 MMOL/L (3.5-5.1); SODIUM LEVEL 146 MMOL/L (136-145); TOTAL PROTEIN 6.8 G/DL (5.7-8.2); TRIGLYCERIDES LEVEL 109 MG/DL (<150)
[2024-08-01 13:35] LABS: FERRITIN 119.1 NG/ML (7.3-270.7); TOTAL 25(OH) VITAMIN D 14.5 NG/ML (20.0-100.0)
[2024-08-01 13:36] LABS: VITAMIN B12 LEVEL 989 PG/ML (211-911)
[2024-08-01 13:46] LABS: HEMOGLOBIN A1c 7.2 % (4.0-6.0)
== END ==
LOC: M LAB 12:27
PROVIDERS: ATTEND Physician Assistant
DX: E11.65 Type 2 diabetes mellitus with hyperglycemia (principal); K74.69 Other cirrhosis of liver; I10 Essential (primary) hypertension; Z98.84 Bariatric surgery status

== ENCOUNTER → 2024-09-29 | Outpatient (CLI) | payer MEDICARE | LOC: M RAD 10:30 | PROVIDERS: ATTEND Urology | DX: N20.0 Calculus of kidney (principal) ==

== ENCOUNTER → 2024-10-31 | Outpatient (CLI) | payer MEDICARE ==
[~2024-10-31] MED LIST changes: +GLIP-318 PO; -GLIP5TAB20 PO
[2024-10-31 13:25] LABS: BASO # 0.1 10^3/uL (0.0-0.2); BASO % 1.3 % (0.0-1.0); EOS # 0.7 10^3/uL (0.0-0.5); EOS % 10.9 % (0.0-3.0); HEMATOCRIT 39.8 % (36.0-47.0); HEMOGLOBIN 13.6 g/dl (12.0-15.5); LYMPH # 1.6 10^3/uL (1.5-5.0); LYMPH % 25.9 % (24.0-44.0); MEAN CORPUSCULAR HGB CONC 34.2 g/dl (32.0-36.5); MEAN CORPUSCULAR VOLUME 96.6 fl (80.0-96.0); MONO # 0.4 10^3/uL (0.0-0.8); MONO % 6.6 % (2.0-8.0); NEUTROPHILS # 3.5 10^3/uL (1.5-8.5); PLATELET COUNT, AUTOMATED 147 10^3/uL (150-450); RED BLOOD COUNT 4.12 10^6/uL (4.00-5.40); WHITE BLOOD COUNT 6.3 10^3/uL (4.0-10.0)
[2024-10-31 13:36] LABS: INR 1.08; PROTHROMBIN TIME 14.3 SECONDS (12.5-14.5)
[2024-10-31 13:50] LABS: HEMOGLOBIN A1c 7.5 % (4.0-6.0)
[2024-10-31 13:51] LABS: CREATININE, URINE 87.6 MG/DL; MAU/CREAT RATIO 14.8 MCG/MG (0.0-30.0)
[2024-10-31 13:53] LABS: ALKALINE PHOSPHATASE 115 U/L (35-104); ALT/SGPT 54 U/L (7.0-40); AST/SGOT 58 U/L (<34); BILIRUBIN,TOTAL 0.7 MG/DL (0.3-1.2); BLOOD UREA NITROGEN 9 MG/DL (9-23); CARBON DIOXIDE LEVEL 26 MMOL/L (20-31); CHLORIDE LEVEL 108 MMOL/L (98-107); CHOLESTEROL LEVEL 117 MG/DL (<200); CHOLESTEROL RISK RATIO 2.72 (<5); CREATININE FOR GFR 0.59 MG/DL (0.55-1.30); GLOMERULAR FILTRATION RATE > 60.0 (>45); GLUCOSE, FASTING 193 MG/DL (74-106); IRON (FE) 76 UG/DL (50-170); LDL CHOLESTEROL 54.2 MG/DL (<100); SODIUM LEVEL 142 MMOL/L (136-145); TOTAL PROTEIN 7.3 G/DL (5.7-8.2); TRIGLYCERIDES LEVEL 99 MG/DL (<150)
[2024-10-31 13:55] LABS: FERRITIN 103.7 NG/ML (7.3-270.7); TOTAL 25(OH) VITAMIN D 18.6 NG/ML (20.0-100.0); VITAMIN B12 LEVEL 895 PG/ML (211-911)
== END ==
LOC: M LAB 12:27
PROVIDERS: ATTEND Physician Assistant
DX: E11.65 Type 2 diabetes mellitus with hyperglycemia (principal); R05.9 Cough, unspecified; Z98.84 Bariatric surgery status; K74.69 Other cirrhosis of liver; E55.9 Vitamin D deficiency, unspecified; I10 Essential (primary) hypertension

== ENCOUNTER 2025-03-22 04:11 | Inpatient (IN) | payer MEDICARE ==
[~2025-03-22] VITALS: Ht 177.8 cm; Wt 105.2 kg
[~2025-03-22 04:11] MED LIST changes: -BUPR-597 PO; +BUPR-766 PO; -FLOM0.4C39 PO; +KETO120S5 TOP; -KETO2SHA8 TOP; +TAMS-18 PO
[2025-03-22 04:35] LABS: VENOUS BASE EXCESS -4.3 (-2.0-2.0); VENOUS HCO3 22.1 MMOL/L (23.0-27.0); VENOUS O2 SATURATION 72.6 % (60.0-80.0); VENOUS PARTIAL PRESSURE CO2 45.3 mmHg (38.0-50.0); VENOUS PARTIAL PRESSURE O2 40.9 mmHg (30.0-50.0); VENOUS PH 7.306 UNITS (7.330-7.430); VENOUS STANDARD HCO3 20.4 MMOL/L; VENOUS TOTAL CO2 23.5 MMOL/L (24.0-28.0)
[2025-03-22] MEDS ORDERED: ISOVUE-370 76% 100 ML VIAL As Ordered ONE (04:35)
[2025-03-22 04:38] LABS: ABG BASE EXCESS -3.7 (-2.0-2.0); ABG HCO3 21.3 MMOL/L (22.0-26.0); ABG O2 SATURATION 94.3 % (95.0-99.0); ABG PARTIAL PRESSURE CO2 38.5 mmHg (35.0-45.0); ABG PARTIAL PRESSURE O2 74.4 mmHg (75.0-100.0); ABG STANDARD HCO3 21.4 MMOL/L. (22.0-26.0); ABG TOTAL CO2 22.5 MMOL/L (23.0-31.0); ABG pH (ARTERIAL) 7.361 UNITS (7.350-7.450)
[2025-03-22 04:41] LABS: BASO # 0.1 10^3/uL (0.0-0.2); BASO % 1.4 % (0.0-1.0); EOS # 0.3 10^3/uL (0.0-0.5); EOS % 5.3 % (0.0-3.0); LYMPH # 1.4 10^3/uL (1.5-5.0); LYMPH % 21.7 % (24.0-44.0); MONO # 0.5 10^3/uL (0.0-0.8); MONO % 7.1 % (2.0-8.0); NEUTROPHILS # 4.1 10^3/uL (1.5-8.5); NEUTROPHILS % 64.3 % (36.0-66.0); PLATELET COUNT, AUTOMATED 122 10^3/uL (150-450)
[2025-03-22 04:54] LABS: INR 1.11
[2025-03-22 05:04] LABS: CK-MB VALUE MASS 4.1 NG/ML (<3.6)
[2025-03-22] MEDS: NS (Normal Saline) 0.9% 1,000 ML IV ONE (05:04)
[2025-03-22 05:05] LABS: ETHYL ALCOHOL (ETHANOL) < 0.003 % (0.000-0.010)
[2025-03-22 05:06] LABS: CPK CREATINE PHOSPHOKINASE 205 U/L (34-145); MB/CK RELATIVE INDEX 2.00 (< OR =4)
[2025-03-22 05:07] LABS: ALT/SGPT 56 U/L (7.0-40); AST/SGOT 59 U/L (<34); CALCIUM LEVEL 8.7 MG/DL (8.3-10.6); CARBON DIOXIDE LEVEL 26 MMOL/L (20-31); CHLORIDE LEVEL 110 MMOL/L (98-107); CREATININE FOR GFR 0.80 MG/DL (0.55-1.30); GLOMERULAR FILTRATION RATE 80.7 (>45); POTASSIUM SERUM 4.3 MMOL/L (3.5-5.1); SALICYLATE LEVEL < 3.0 MG/DL (<30); SODIUM LEVEL 147 MMOL/L (136-145)
[2025-03-22 05:36] LABS: KETONE, URINE AUTO RFX TRACE mg/dL (NEGATIVE); LEUKOCYTE ESTERASE UR AUTO RFX NEGATIVE (NEGATIVE); MUCUS, URINE RFX SMALL (NEGATIVE); NITRITE, URINE AUTO RFX NEGATIVE (NEGATIVE); RBC, URINE AUTO RFX 0 /HPF (0-3); SQUAM EPITHELIAL CELL UR AURFX 0 /HPF (0-6); WBC, URINE AUTO RFX 1 /HPF (0-3)
[2025-03-22] MEDS: LACTULOSE 20 GM/30 ML SYRUP UDC PR ONE (06:04)
[2025-03-22 06:15] LABS: AMPHETAMINES LEVEL URINE NEGATIVE (NEGATIVE); BARBITURATES URINE NEGATIVE (NEGATIVE); BENZODIAZEPINES URINE NEGATIVE (NEGATIVE); COCAINE METABOLITE URINE NEGATIVE (NEGATIVE)
[2025-03-22 06:16] LABS: CANNABINOIDS URINE NEGATIVE (NEGATIVE); METHADONE URINE NEGATIVE (NEGATIVE); PHENCYCLIDINE URINE NEGATIVE (NEGATIVE)
[2025-03-22 06:17] LABS: OPIATES URINE POSITIVE (NEGATIVE)
[2025-03-22 08:55] VITALS: BP 142/70; TEMP 96.4; O2SAT 100
[2025-03-22] MEDS ORDERED: DEXTROSE 50% 50 ML SYRINGE IV PRN (09:30)
[2025-03-22] MEDS ORDERED: GLUCAGON INJ 1 MG VIAL SC PRN (09:30)
[2025-03-22] MEDS ORDERED: GLUCOSE 4 GM CHEW PO PRN (09:30)
[2025-03-22 10:13] VITALS: BP 132/61; TEMP 97.2; O2SAT 99
[2025-03-22] MEDS: TAMSULOSIN 0.4 MG CAP PO ONE (11:22)
[2025-03-22] MEDS: LR 1,000 ML IV ONE (11:27)
[2025-03-22 11:59] VITALS: BP 122/57; TEMP 97.4; O2SAT 99
[2025-03-22 13:04] LABS: CALCIUM LEVEL 8.8 MG/DL (8.3-10.6); CARBON DIOXIDE LEVEL 26 MMOL/L (20-31); CHLORIDE LEVEL 111 MMOL/L (98-107); CREATININE FOR GFR 0.67 MG/DL (0.55-1.30); GLOMERULAR FILTRATION RATE > 90.0 (>45); POTASSIUM SERUM 4.4 MMOL/L (3.5-5.1); SODIUM LEVEL 149 MMOL/L (136-145)
[2025-03-22] MEDS: LACTULOSE 20 GM/30 ML SYRUP UDC PO SCH (13:08)
[2025-03-22] MEDS: INSULIN LISPRO (NovoLOG) PER UNIT SC SCH ×2 (13:08→20:24)
[2025-03-22] MEDS ORDERED: OXYC10TA12 PO (14:28)
[2025-03-22] MEDS ORDERED: DICY20TA20 PO (14:28)
[2025-03-22] MEDS ORDERED: ERGO500029 PO (14:28)
[2025-03-22] MEDS ORDERED: MULTTAB61 PO (14:28)
[2025-03-22] MEDS ORDERED: VESI5TAB2 PO (14:28)
[2025-03-22] MEDS ORDERED: MAGN400T2 PO (14:28)
[2025-03-22] MEDS ORDERED: CALC1TAB63 PO (14:28)
[2025-03-22] MEDS ORDERED: INCR1INH PO (14:28)
[2025-03-22] MEDS ORDERED: ADVA230A INH (14:28)
[2025-03-22] MEDS ORDERED: SPIR50TA4 PO (14:28)
[2025-03-22] MEDS ORDERED: TOUJ1.2I SC (14:32)
[2025-03-22] MEDS ORDERED: HOME MED LIST COMPLETE! XX SCH (14:35)
[2025-03-22] MEDS ORDERED: ALBUTEROL 90 MCG/ACT 8 GM HFA INHALER INH PRN (14:40)
[2025-03-22] MEDS ORDERED: DICYCLOMINE 10 MG CAP PO PRN (14:40)
[2025-03-22] MEDS: MAG SULF 1GM/100ML (MAG RUN) 1 GM in IV 1 EA IV ONE (15:12)
[2025-03-22] MEDS: ENOXAPARIN 40 MG/0.4 ML SYRINGE (J1650 PER 10MG) SC SCH (15:12)
[2025-03-22 15:40] VITALS: BP 137/66; TEMP 96.7; O2SAT 98
[2025-03-22] MEDS: ADVAIR HFA 230/21 MCG INHALER INH SCH (18:57)
[2025-03-22 19:52] VITALS: BP 126/57; TEMP 97.8; O2SAT 99
[2025-03-22] MEDS: LanTUS (INSULIN GLARGINE INJ) 1 UNITS/0.01 ML SC SCH (20:23)
[2025-03-22] MEDS: MONTELUKAST 10 MG TAB PO SCH (20:24)
[2025-03-22] MEDS: CETIRIZINE 10 MG TAB PO SCH (20:24)
[2025-03-22] MEDS: CYANOCOBALAMIN 500 MCG TAB PO SCH (20:24)
[2025-03-23 00:15] VITALS: BP 110/56; TEMP 96.8; O2SAT 96
[2025-03-23 03:08] VITALS: BP 155/70; TEMP 97; O2SAT 97
[2025-03-23 04:59] LABS: PLATELET COUNT, AUTOMATED 115 10^3/uL (150-450)
[2025-03-23 05:29] LABS: ALT/SGPT 56 U/L (7.0-40); AST/SGOT 143 U/L (<34); CALCIUM LEVEL 8.8 MG/DL (8.3-10.6); CARBON DIOXIDE LEVEL 26 MMOL/L (20-31); CHLORIDE LEVEL 112 MMOL/L (98-107); CREATININE FOR GFR 0.61 MG/DL (0.55-1.30); GLOMERULAR FILTRATION RATE > 90.0 (>45); MAGNESIUM LEVEL 1.5 MG/DL (1.8-2.4); POTASSIUM SERUM 3.8 MMOL/L (3.5-5.1); SODIUM LEVEL 148 MMOL/L (136-145)
[2025-03-23 07:54] VITALS: BP 143/66; TEMP 97; O2SAT 94
[2025-03-23] MEDS: TIOTROPIUM BROM 2.5MCG/ACTUATION 4GM INH INH SCH (08:00)
[2025-03-23] MEDS: D5W/0.45% SODIUM CHLORIDE 1,000 ML IV ONE (08:59)
[2025-03-23] MEDS: MAG SULF 1GM/100ML (MAG RUN) 1 GM in IV 1 EA IV SCH (09:00)
[2025-03-23] MEDS: buPROPion **XL** 150 MG TABLET PO SCH (09:00)
[2025-03-23 09:01] VITALS: BP 143/66
[2025-03-23] MEDS: PANTOPRAZOLE 40MG TAB PO SCH (09:01)
[2025-03-23] MEDS: MAGNESIUM OXIDE 400 MG TAB PO SCH (09:01)
[2025-03-23] MEDS: PROPRANOLOL 60MG LA CAP PO SCH (09:01)
[2025-03-23] MEDS: POTASSIUM CHLORIDE 10MEQ SR TABLET PO SCH (09:01)
[2025-03-23 12:31] LABS: CALCIUM LEVEL 8.7 MG/DL (8.3-10.6); CARBON DIOXIDE LEVEL 25 MMOL/L (20-31); CHLORIDE LEVEL 108 MMOL/L (98-107); CREATININE FOR GFR 0.57 MG/DL (0.55-1.30); GLOMERULAR FILTRATION RATE > 90.0 (>45); POTASSIUM SERUM 4.3 MMOL/L (3.5-5.1); SODIUM LEVEL 146 MMOL/L (136-145)
[2025-03-23 12:37] VITALS: BP 147/65; TEMP 97.8; O2SAT 97
== END 2025-03-23 15:36 | disposition home or self-care (01) | DRG 441 ==
LOC: EDBD 04:11 → M ED 04:11 → M ED INP 05:50 → M ICU 08:42 → M PCU 09:50
PROVIDERS: ADMIT Internal Medicine; ATTEND Internal Medicine
DX: K76.82 Hepatic encephalopathy (principal); G92.8 Other toxic encephalopathy; F11.20 Opioid dependence, uncomplicated; E72.20 Disorder of urea cycle metabolism, unspecified; E87.0 Hyperosmolality and hypernatremia; R29.6 Repeated falls; K75.81 Nonalcoholic steatohepatitis (NASH); K74.69 Other cirrhosis of liver; E11.42 Type 2 diabetes mellitus with diabetic polyneuropathy; I10 Essential (primary) hypertension; J45.40 Moderate persistent asthma, uncomplicated; E83.42 Hypomagnesemia; K21.9 Gastro-esophageal reflux disease without esophagitis; F32.A Depression, unspecified; G89.29 Other chronic pain; M54.9 Dorsalgia, unspecified; T40.2X5A Adverse effect of other opioids, initial encounter; Z87.442 Personal history of urinary calculi; Z85.3 Personal history of malignant neoplasm of breast; Z98.84 Bariatric surgery status; Z79.4 Long term (current) use of insulin; Z79.899 Other long term (current) drug therapy; Z88.8 Allergy status to other drugs, medicaments and biological substances; Z91.048 Other nonmedicinal substance allergy status

== ENCOUNTER → 2025-03-29 | Outpatient (CLI) | payer MEDICARE ==
[~2025-03-29] MED LIST changes: +ADVA230A INH; +CALC1TAB63 PO; +DICY20TA20 PO; +ERGO500029 PO; +INCR1INH PO; +MAGN400T2 PO; +MULTTAB61 PO; +OXYC10TA12 PO; +TOUJ1.2I SC; +VESI5TAB2 PO
== END ==
LOC: M WHC 08:04
PROVIDERS: ATTEND Physician Assistant
DX: K74.60 Unspecified cirrhosis of liver (principal); K76.6 Portal hypertension

== ENCOUNTER → 2025-03-30 | Outpatient (CLI) | payer MEDICARE ==
[2025-03-30 11:26] LABS: BASO # 0.1 10^3/uL (0.0-0.2); BASO % 1.7 % (0.0-1.0); EOS # 0.6 10^3/uL (0.0-0.5); EOS % 10.8 % (0.0-3.0); LYMPH # 1.7 10^3/uL (1.5-5.0); LYMPH % 31.4 % (24.0-44.0); MONO # 0.5 10^3/uL (0.0-0.8); MONO % 8.6 % (2.0-8.0); NEUTROPHILS # 2.6 10^3/uL (1.5-8.5); NEUTROPHILS % 47.5 % (36.0-66.0); PLATELET COUNT, AUTOMATED 127 10^3/uL (150-450)
[2025-03-30 11:51] LABS: ALT/SGPT 57 U/L (7.0-40); AST/SGOT 65 U/L (<34); CALCIUM LEVEL 8.4 MG/DL (8.3-10.6); CARBON DIOXIDE LEVEL 28 MMOL/L (20-31); CHLORIDE LEVEL 108 MMOL/L (98-107); CREATININE FOR GFR 0.59 MG/DL (0.55-1.30); GLOMERULAR FILTRATION RATE > 90.0 (>45); MAGNESIUM LEVEL 1.6 MG/DL (1.8-2.4); POTASSIUM SERUM 3.9 MMOL/L (3.5-5.1); SODIUM LEVEL 147 MMOL/L (136-145)
== END ==
LOC: M LAB 10:42
PROVIDERS: ATTEND Physician Assistant
DX: E83.42 Hypomagnesemia (principal); E87.1 Hypo-osmolality and hyponatremia; K76.82 Hepatic encephalopathy; K74.69 Other cirrhosis of liver

== ENCOUNTER → 2025-05-01 | Outpatient (CLI) | payer MEDICARE ==
[2025-05-01 11:59] LABS: BASO # 0.1 10^3/uL (0.0-0.2); BASO % 1.3 % (0.0-1.0); EOS # 0.8 10^3/uL (0.0-0.5); EOS % 13.5 % (0.0-3.0); LYMPH # 1.4 10^3/uL (1.5-5.0); LYMPH % 24.5 % (24.0-44.0); MONO # 0.5 10^3/uL (0.0-0.8); MONO % 8.3 % (2.0-8.0); NEUTROPHILS # 2.9 10^3/uL (1.5-8.5); NEUTROPHILS % 52.2 % (36.0-66.0); PLATELET COUNT, AUTOMATED 127 10^3/uL (150-450)
[2025-05-01 12:09] LABS: INR 1.12
[2025-05-01 12:41] LABS: ALT/SGPT 57 U/L (7.0-40); AST/SGOT 67 U/L (<34); CALCIUM LEVEL 9.5 MG/DL (8.3-10.6); CARBON DIOXIDE LEVEL 33 MMOL/L (20-31); CHLORIDE LEVEL 107 MMOL/L (98-107); CREATININE FOR GFR 0.67 MG/DL (0.55-1.30); GLOMERULAR FILTRATION RATE > 90.0 (>45); POTASSIUM SERUM 4.1 MMOL/L (3.5-5.1); SODIUM LEVEL 149 MMOL/L (136-145)
[2025-05-01 12:57] LABS: ESTIMATED AVERAGE GLUCOSE 177.0 MG/DL (60-110)
== END ==
LOC: M LAB 11:23
PROVIDERS: ATTEND Physician Assistant
DX: E11.65 Type 2 diabetes mellitus with hyperglycemia (principal); K74.69 Other cirrhosis of liver

== ENCOUNTER 2025-06-04 09:33 | Emergency (ER) | payer MEDICARE ==
[~2025-06-04] VITALS: Ht 175.3 cm; Wt 98.7 kg
[2025-06-04 10:17] LABS: BASO # 0.1 10^3/uL (0.0-0.2); BASO % 1.0 % (0.0-1.0); EOS # 0.6 10^3/uL (0.0-0.5); EOS % 8.1 % (0.0-3.0); LYMPH # 1.6 10^3/uL (1.5-5.0); LYMPH % 23.3 % (24.0-44.0); MONO # 0.6 10^3/uL (0.0-0.8); MONO % 9.0 % (2.0-8.0); NEUTROPHILS # 4.1 10^3/uL (1.5-8.5); NEUTROPHILS % 58.5 % (36.0-66.0); PLATELET COUNT, AUTOMATED 128 10^3/uL (150-450)
[2025-06-04 10:27] LABS: INR 1.16
[2025-06-04 10:46] LABS: ALT/SGPT 81 U/L (7.0-40); AST/SGOT 76 U/L (<34); CALCIUM LEVEL 9.1 MG/DL (8.3-10.6); CARBON DIOXIDE LEVEL 26 MMOL/L (20-31); CHLORIDE LEVEL 108 MMOL/L (98-107); CREATININE FOR GFR 0.53 MG/DL (0.55-1.30); GLOMERULAR FILTRATION RATE > 90.0 (>45); POTASSIUM SERUM 4.3 MMOL/L (3.5-5.1); SODIUM LEVEL 144 MMOL/L (136-145)
[2025-06-04] MEDS: LACTULOSE 20 GM/30 ML SYRUP UDC PO ONE (12:06)
[2025-06-04] MEDS: LIDOCAINE W/EPINEPHrine 1% 20 ML VIAL SC ONE (13:20)
[2025-06-04 14:30] VITALS: BP 134/65
[2025-06-04 14:31] VITALS: O2SAT 98
[2025-06-04] MEDS: CIPROFLOXACIN 500 MG TABLET PO ONE (14:50)
[2025-06-04] MEDS ORDERED: CIPR-249 PO (14:52)
[2025-06-04 15:03] VITALS: TEMP 97.5
== END 2025-06-04 15:05 | disposition home or self-care (01) ==
LOC: M ED 09:33
DX: S01.311A Laceration without foreign body of right ear, initial encounter (principal); S39.012A Strain of muscle, fascia and tendon of lower back, initial encounter; S61.411A Laceration without foreign body of right hand, initial encounter; Y92.019 Unspecified place in single-family (private) house as the place of occurrence of the external cause; Y93.9 Activity, unspecified; Y99.9 Unspecified external cause status; W19.XXXA Unspecified fall, initial encounter; E11.9 Type 2 diabetes mellitus without complications; I10 Essential (primary) hypertension; Z85.3 Personal history of malignant neoplasm of breast; Z88.8 Allergy status to other drugs, medicaments and biological substances; Z91.048 Other nonmedicinal substance allergy status; Z79.51 Long term (current) use of inhaled steroids; Z79.4 Long term (current) use of insulin; Z79.84 Long term (current) use of oral hypoglycemic drugs; Z79.899 Other long term (current) drug therapy; Z79.810 Long term (current) use of selective estrogen receptor modulators (SERMs)

== ENCOUNTER → 2025-08-02 | Outpatient (CLI) | payer MEDICARE ==
[~2025-08-02] MED LIST changes: +CIPR-249 PO
[2025-08-02 14:12] LABS: BASO # 0.1 10^3/uL (0.0-0.2); BASO % 1.4 % (0.0-1.0); EOS # 0.6 10^3/uL (0.0-0.5); EOS % 11.7 % (0.0-3.0); LYMPH # 1.5 10^3/uL (1.5-5.0); LYMPH % 30.8 % (24.0-44.0); MONO # 0.4 10^3/uL (0.0-0.8); MONO % 8.5 % (2.0-8.0); NEUTROPHILS # 2.3 10^3/uL (1.5-8.5); NEUTROPHILS % 47.4 % (36.0-66.0); PLATELET COUNT, AUTOMATED 139 10^3/uL (150-450)
[2025-08-02 14:39] LABS: ALT/SGPT 75 U/L (7.0-40); AST/SGOT 86 U/L (<34); CALCIUM LEVEL 9.1 MG/DL (8.3-10.6); CARBON DIOXIDE LEVEL 28 MMOL/L (20-31); CHLORIDE LEVEL 107 MMOL/L (98-107); CHOLESTEROL LEVEL 138 MG/DL (<200); CHOLESTEROL RISK RATIO 3.01 (<5); CREATININE FOR GFR 0.56 MG/DL (0.55-1.30); GLOMERULAR FILTRATION RATE > 90.0 (>45); LDL CHOLESTEROL 74.0 MG/DL (<100); MAGNESIUM LEVEL 1.4 MG/DL (1.8-2.4); NON-HDL-C 92.2 MG/DL; POTASSIUM SERUM 4.1 MMOL/L (3.5-5.1); SODIUM LEVEL 144 MMOL/L (136-145); TRIGLYCERIDES LEVEL 91 MG/DL (<150)
[2025-08-02 14:52] LABS: ESTIMATED AVERAGE GLUCOSE 212.0 MG/DL (60-110)
== END ==
LOC: M LAB 13:43
PROVIDERS: ATTEND Physician Assistant
DX: E11.65 Type 2 diabetes mellitus with hyperglycemia (principal); K76.82 Hepatic encephalopathy; I10 Essential (primary) hypertension